=== PATIENT | female | born 1965 | race Caucasian/White ===

== ENCOUNTER 2020-08-20 11:38 | Outpatient (REF) | payer MEDICARE, MEDICAID, SELFPAY | END 2020-08-20 11:39 | disposition home or self-care (01) | LOC: HO.LNP 11:38 | PROVIDERS: Visit Provider Nurse Practitioner Family | DX: R35.0 Frequency of micturition (principal) | CPT/HCPCS: 87086 ==

== ENCOUNTER 2021-01-05 09:57 | Outpatient (REF) | payer OTHER, SELFPAY ==
[2021-01-05 11:37] LABS: Hematocrit 42.1 % (37-47); Hemoglobin 13.8 g/dl (12.0-16.0); Mean Corpuscular HGB Conc 32.8 g/dl (31.0-35.0); Mean Corpuscular Hemoglobin 29.6 pg (27.0-33.0); Mean Corpuscular Volume 90.1 fL (80-98); Platelet Count 328 X10*3/uL (160-400); Red Blood Count 4.67 X10*6/uL (4.20-5.50); Red Cell Distribution Width 12.9 % (11.0-16.0); White Blood Count 7.8 X10*3/uL (4.8-10.8)
[2021-01-05 11:51] LABS: Alanine Aminotransferase 18 U/L (0-31); Albumin Level 4.1 g/dL (3.5-5.0); Alkaline Phosphatase 102 U/L (39-117); Anion Gap 12 (12-20); Aspartate Amino Transferase 14 U/L (5-31); Bilirubin Total 0.5 mg/dL (0.0-1.0); Blood Urea Nitrogen 13 mg/dL (9-16); Calcium 9.8 mg/dL (8.4-10.2); Carbon Dioxide 29 mmol/L (22-29); Chloride 105 mmol/L (96-108); Cholesterol 199 mg/dL; Estimated Glomerular Filt Rate > 60; Glucose Fasting 86 mg/dL (60-99); HDL Cholesterol 66 mg/dL; LDL Cholesterol Calculated 120 mg/dl; Potassium 4.2 mmol/L (3.3-5.1); Sodium 142 mmol/L (135-145); Total Protein 6.9 g/dL (6.5-8.0); Triglycerides 67 mg/dL
[2021-01-05 12:12] LABS: TSH reflex Free T4 1.88 uIU/mL (0.32-4.0); Vitamin D 25-OH Total 36.1 ng/mL (>30)
[2021-01-08 01:34] LABS: Folate > 20.0 ng/mL (> or = 4.0); Vitamin B12 229 pg/mL (200-900)
== END 2021-01-05 09:58 | disposition home or self-care (01) ==
LOC: HO.HMGCLDS 09:57
PROVIDERS: PCP Internal Medicine; Visit Provider Internal Medicine
DX: E03.9 Hypothyroidism, unspecified (principal); R26.89 Other abnormalities of gait and mobility; R29.898 Other symptoms and signs involving the musculoskeletal system; F03.90 Unspecified dementia, unspecified severity, without behavioral disturbance, psychotic disturbance, mood disturbance, and anxiety
CPT/HCPCS: 36415; 80053; 80061; 82306; 82607; 82746; 84443; 85027

== ENCOUNTER 2021-02-18 13:00 | Outpatient (RCR) | payer OTHER, SELFPAY ==
--- NOTE | 2021-07-13 18:24 | MHC.PT.DC ---
[facility] [place] Office [place] Office [place] Office [address] Tiffanie Garibay [address] [phone] F: [phone] F: [phone] F: [phone] F: [phone] Physical Therapy Discharge Report Diagnosis: L Leg weakness. Date of Surgery: Date of Evaluation: 01/12/21 Date of Discharge: 07/13/21 Treatments to Date: 5 Cancellations to Date: 0 No Shows to Date: 0 Discharge Status: Patient Elected to Stop Visit Non-compliance Discharge Summary: noting dizziness and n/t in feet. pt required cues to stay on track a few times. modA for sit <> stand from w/c to plinth. increased unsteadiness when on feet. Electronically signed by: Ronak Garcia PT Please sign and return to therapist. Thank you for your referral.
== END 2021-07-13 18:25 | disposition home or self-care (01) ==
LOC: HO.PTCHIC 13:00
PROVIDERS: PCP Internal Medicine; Visit Provider Internal Medicine
DX: R26.89 Other abnormalities of gait and mobility (principal); R29.898 Other symptoms and signs involving the musculoskeletal system; F03.90 Unspecified dementia, unspecified severity, without behavioral disturbance, psychotic disturbance, mood disturbance, and anxiety; E03.9 Hypothyroidism, unspecified
CPT/HCPCS: 97110; 97112; 97116; 97163; 97530

== ENCOUNTER 2021-05-06 12:11 | Outpatient (REF) | payer OTHER, SELFPAY ==
[2021-05-06 14:27] LABS: Blood Urea Nitrogen 15 mg/dL (9-16); Estimated Glomerular Filt Rate > 60
== END 2021-05-06 12:12 | disposition home or self-care (01) ==
LOC: HO.LAB 12:11
PROVIDERS: PCP Internal Medicine; Visit Provider Psychiatry & Neurology Neurology
DX: G93.40 Encephalopathy, unspecified (principal); R35.0 Frequency of micturition; R82.90 Unspecified abnormal findings in urine
CPT/HCPCS: 36415; 82565; 84520; 87086; 87147

== ENCOUNTER 2021-06-09 12:16 | Inpatient (IN) | payer OTHER, SELFPAY ==
--- NOTE | ~2021-06-09 | XR_ITS ---
EXAMINATION: XR ANKLE, LEFT CLINICAL INFORMATION: Fall, trauma, pain COMPARISON: None TECHNIQUE: The left ankle is imaged in 3 views. FINDINGS: The AP and lateral views are oblique, nonorthogonal. The foot is plantarflexed. There is no visible fracture or dislocation. Talar dome shows no osteochondral lesion. XR/XR ankle LT min 3V IMPRESSION: No fracture or dislocation.
--- NOTE | ~2021-06-09 | XR_ITS ---
EXAMINATION: XR HIP, RIGHT CLINICAL INFORMATION: Pain COMPARISON: None TECHNIQUE: AP pelvis and 2 views of the right hip. FINDINGS: There is a subcapital fracture of the proximal right femur without evidence of dislocation. There is some medial angulation of distal fracture fragment. There appears to be some mild anterior and superior displacement of distal fracture fragment. No acute fracture or diastases of the pelvis is seen. XR/XR hip RT min 2V IMPRESSION: Subcapital fracture of the proximal right femur.
--- NOTE | ~2021-06-09 | XR_ITS ---
EXAMINATION: XR CHEST CLINICAL INFORMATION: Follow-up COMPARISON: Previous day TECHNIQUE: Frontal view of the chest was obtained. XR/XR chest 1V FINDINGS/IMPRESSION: No definite pneumothorax is present. Suspect a skin fold projecting over the left lung apex. Subsegmental atelectasis, left lower lung. No discrete consolidation. Normal heart size and pulmonary vascularity. Dual-lead pacemaker stably positioned.
--- NOTE | ~2021-06-09 | XR_ITS ---
EXAMINATION: XR CHEST CLINICAL INFORMATION: Hypertension. COMPARISON: Chest 06/10/2021 TECHNIQUE: Frontal view of the chest was obtained. FINDINGS: Lungs are expanded with bandlike atelectasis or infiltrate. Left lung base. Ill-defined opacities seen in the right midlung on the previous exam has resolved. There is increased pulmonary vascularity with mild thyromegaly question mild congestion. No gross bony abnormality. XR/XR chest 1V IMPRESSION: Left basilar atelectasis/infiltrate. Ill-defined opacities in the right midlung on previous study have resolved. Suspect mild pulmonary vascular congestion with underlying cardiomegaly..
--- NOTE | ~2021-06-09 | XR_ITS ---
EXAMINATION: XR CHEST CLINICAL INFORMATION: Leukocytosis COMPARISON: None TECHNIQUE: Frontal view of the chest was obtained. FINDINGS: The lungs are well-expanded with no acute consolidation. There are scattered ill-defined opacities in the right midlung question small nodules. No pleural effusion or pleural thickening. No gross bony abnormality seen. XR/XR chest 1V IMPRESSION: No acute process seen. There are scattered ill-defined opacities in the right midlung question nodules
--- NOTE | ~2021-06-09 | XR_ITS ---
EXAMINATION: XR CHEST CLINICAL INFORMATION: New cardiac pacer COMPARISON: 06/12/2021 TECHNIQUE: Frontal view of the chest was obtained. FINDINGS: Lungs are mildly hypoinflated. There is equivocal finding of thickening of the bronchial epstein. Cardiac silhouette and pulmonary vessels are normal in size. No evidence of pulmonary edema, consolidation or pleural effusion. No pneumothorax. There is a left pectoral region cardiac pacemaker with intact transvenous leads extending to level the right atrium and right ventricle. The visualized bones are intact. XR/XR chest 1V IMPRESSION: * There is a newly placed dual chamber cardiac pacemaker. * No evidence of pulmonary edema, pneumothorax or pleural effusion.
--- NOTE | ~2021-06-09 | XR_ITS ---
EXAMINATION: XR CHEST CLINICAL INFORMATION: Follow-up chest following pacer insertion. COMPARISON: Chest 06/13/2021 at 11:40 AM. TECHNIQUE: Frontal view of the chest was obtained. FINDINGS: There is a tiny less than 1% left apical pneumothorax seen. This is new compared to last study. Rest lungs are expanded with patchy opacities in both lung bases likely developing infiltrates. The heart size and pulmonary vascularity is normal. There are pacer electrodes in right atrium and right ventricle. No gross bony abnormality seen. XR/XR chest 1V IMPRESSION: Suspect new left apical pneumothorax 1% and less. Bilateral patchy opacities in lung bases question developing infiltrates.
--- NOTE | ~2021-06-09 | FL_ITS ---
EXAMINATION: XR FLUOROSCOPY WITH IMAGES CLINICAL INFORMATION: Pacer insertion COMPARISON: CXR from 06/12/2021 TECHNIQUE: Fluoroscopic imaging of the chest performed during time of pacemaker insertion. Fluoroscopy time: 10.3 minutes DAP: 26.7 mGycm2 Images: 3 images are saved. FL/FL guidance in OR FINDINGS AND IMPRESSION: The initial image obtained during the venogram shows widely patent left subclavian and axillary veins. Thereafter, the subclavian vein is localized, and final image shows the inserted cardiac pacing leads. Please refer to the procedure report.
--- NOTE | ~2021-06-09 | XR_ITS ---
EXAMINATION: XR KNEE, RIGHT CLINICAL INFORMATION: Fall, trauma, pain COMPARISON: None TECHNIQUE: AP and crosstable lateral views of the right knee. FINDINGS: There is no fracture, dislocation, or suprapatellar effusion. Hoffa's fat pad appears normal. There is narrowing lateral knee joint compartment. No visible erosive change or chondrocalcinosis. Bony mineralization appears normal. XR/XR knee RT 2V IMPRESSION: No fracture or dislocation.
--- NOTE | ~2021-06-09 | XR_ITS ---
EXAMINATION: XR HIP, RIGHT CLINICAL INFORMATION: Hip fracture COMPARISON: Previous x-ray 06/09/2021 TECHNIQUE: Two views of the right hip. FINDINGS: There is a new right hip hemiarthroplasty. No fracture or dislocation is seen. There are postoperative changes to the soft tissues. There is an IUD in the pelvis. XR/XR hip RT w PEL1V IMPRESSION: Satisfactory appearance of right hip hemiarthroplasty.
--- NOTE | 2021-06-09 12:26 | ED.FALL ---
HPI - Fall General Chief Complaint: Fall Stated Complaint: FALL FROM WHEELCHAIR,LEFT LEG PAIN Time Seen by Provider: 06/09/21 12:20 History of Present Illness HPI Narrative: 56 years old status post accidental fall. Complaining of pain to the right thigh area. Also to the left ankle. Denies any loss of consciousness no head injury. No known fever no chills no nausea no vomiting. No head injury. Patient from home. Baseline dementia. Mental status is unchanged per EMS. Baseline awake alert oriented to self and place not time. Patient was being moved from her wheelchair by her . Accidentally fell. Related Data Home Medications Medication Instructions Recorded Confirmed nystatin 100,000 unit/mL oral 1 ml PO DAILY 10/05/20 06/04/21 suspension Previous Rx's Medication Instructions Recorded cholecalciferol (vitamin D3) 25 25 mcg PO DAILY #90 cap 12/30/20 mcg (1,000 unit) capsule folic acid 1 mg tablet 1 mg PO DAILY #90 tab 12/30/20 levothyroxine 75 mcg tablet 75 mcg PO DAILY #90 tab 12/30/20 miscellaneous medical supply 1 ea MISCELLANEOUS .QD #1 ea 12/30/20 nicotine 14 mg/24 hr daily 1 patch TRANSDERMAL DAILY #28 ea 12/30/20 transdermal patch ciprofloxacin HCl 500 mg tablet 500 mg PO BID #14 tab 06/04/21 (Cipro) Allergies Allergy/AdvReac Type Severity Reaction Status Date / Time No Known Allergies Allergy Verified 06/04/21 16:48 Review of Systems Review of Systems: Constitutional: No Weight loss, No Fever, No Chills, No Night Sweats, No Fatigue, No Malaise ENT/Mouth: No Hearing loss, No Ear Pain, No Nasal Congestion, No Sinus Pain, No Hoarseness, No sore throat, No Rhinorrhea, No Swallowing Difficulty Eyes: No Eye Pain, No Swelling, No Redness, No Foreign Body, No Discharge, No Vision Changes Cardiovascular: No Chest Pain, No SOB, No Dyspnea on Exertion, No Orthopnea, No Edema, No Palpitations Respiratory: No Cough, No Sputum, No Wheezing, No Smoke Exposure, No Dyspnea Gastrointestinal: No Nausea, No Vomiting, No Diarrhea, No Constipation, No abdominal Pain, No Hematochezia, No Melena Genitourinary: no irregular bleeding, No Dysuria, No Urinary Frequency, No Hematuria, No Urinary Incontinence, No Urgency, No Flank Pain, No Urinary Flow Changes, No Hesitancy Musculoskeletal: Positive pain to the right thigh and to the left ankle. Neuro: No Weakness, No Numbness, No Paresthesias, No Loss of Consciousness, No Dizziness, No Headache Psych: No Anxiety/Panic, No Depression, No SI/HI/AH/VH, No Social Issues, Heme/Lymph: No Bruising, No Bleeding,No Lymphadenopathy Endocrine: No Polyuria, No Polydipsia, No Temperature Intolerance PMF Past Medical History Medical History Balance disorder Dementia Hypothyroidism Lactose intolerance Left leg weakness Memory loss PTSD (post-traumatic stress disorder) Tobacco dependence Surgical History No pertinent past surgical history Social History Social History Alcohol intake: current Alcohol intake frequency: holidays/special occasions only Patient Tobacco Use Status: Current everyday Tobacco user Use of substances other than those prescribed or required for medical reasons: No Advance Directives: No Advance Directives Information Provided: No Physical Exam Vital Signs: Vital Signs: Last Vital Signs Pulse 91 06/09/21 12:27 Resp 16 06/09/21 12:27 BP 130/73 06/09/21 12:27 Pulse Ox 95 06/09/21 12:27 Body Mass Index 32.9 MDM - Fall MDM Narrative Medical decision making narrative: Status post accidental fall from wheelchair. X-ray showed a right subcapital hip fracture. The finding was discussed with Orthopedics. Will admit patient for further evaluation. Patient denies any chest pain shortness of breath dizziness. The fall was witnessed by spells. It was completely accidental in nature. There is no head injury. No nausea no vomiting. No focal weakness. Patient's case discussed with orthopedic service. Will admit for further evaluation. Differential Diagnosis Differential diagnosis: Likely fracture Discharge Plan Discharge Clinical Impression: Closed hip fracture Patient Disposition: Admitted As Inpatient
[2021-06-09 12:27] VITALS: BP 108/57; BP 130/73; PULSE 91; PULSE 92; RESP 16; O2SAT 94; O2SAT 95; BMI 32.9
--- NOTE | 2021-06-09 14:27 | ECG_ITS ---
Test Reason : FALL Blood Pressure : / mmHG Vent. Rate : 095 BPM Atrial Rate : 094 BPM P-R Int : 000 ms QRS Dur : 078 ms QT Int : 360 ms P-R-T Axes : 000 -10 018 degrees QTc Int : 452 ms Artifact in tracing Normal sinus rhythm Nonspecific ST and T wave abnormality Abnormal ECG No previous ECGs available Referred By: Sarah Cueto Electronically Signed By:FLAKO SAAVEDRA
--- NOTE | 2021-06-09 14:34 | PM.EVENT ---
Event Note Date of Service: 06/09/21 Event Note: Is a 56-year-old female who presented to the emergency department after sustaining a fall while transferring from walker to wheelchair. X-rays show a femoral neck fracture on the right side Admitted to the Orthopedic Service She will be typed and screened and NPO after midnight Plan for right hip hemiarthroplasty on June [address] Madden Full consult note to follow
[2021-06-09 14:40] VITALS: BP 114/70; PULSE 96; RESP 16; TEMP 36.9; O2SAT 94
[2021-06-09] MEDS: Dextrose 5 % and 0.45 % NaCl 1,000 ML 80 ML IVCONT (14:51)
[2021-06-09 14:56] LABS: MANUAL DIFF FLAG NO
[2021-06-09 14:57] LABS: Glucose Urine UA NEG (NEG); Leukocyte Esterase Urine NEG (NEG); Nitrite Urine NEG (NEG); PH 5.5 (5.0-8.0); Specific Gravity - Urine >= 1.030 (1.005-1.025); UACC Culture Trigger NO; Urine Blood NEG (NEG); Urine Ketones NEG (NEG); Urine Protein 1+ MG/DL (NEG-TRACE)
[2021-06-09 14:58] LABS: Basophils Absolute Auto 0.1 X10*3/uL (0.0-0.2); Basophils Percent Auto 0.3 % (0-2); Eosinophils Percent Auto 0.1 % (0-4); Hematocrit 41.1 % (37-47); Hemoglobin 13.4 g/dl (12.0-16.0); Imm Gran Abs Auto 0.14 X10*3/uL (0.00-0.03); Imm Gran Pct Auto 0.6 % (0.0-0.4); Lymphocytes Absolute Auto 1.2 X10*3/uL (1.2-4.9); Lymphocytes Percent Auto 5.3 % (20-40); Mean Corpuscular HGB Conc 32.6 g/dl (31.0-35.0); Mean Corpuscular Hemoglobin 28.9 pg (27.0-33.0); Mean Corpuscular Volume 88.6 fL (80-98); Mean Platelet Volume 10.3 fL (9.4-12.3); Monocytes Absolute Auto 0.9 X10*3/uL (0.1-1.2); Neutrophils Absolute Auto 19.7 X10*3/uL (2.0-8.3); Neutrophils Percent Auto 89.7 % (45-73); Platelet Count 317 X10*3/uL (160-400); Red Blood Count 4.64 X10*6/uL (4.20-5.50); Red Cell Distribution Width 12.8 % (11.0-16.0)
[2021-06-09 14:58] LABS: Appearance Urine HAZY; Color Urine DARK YELLOW
[2021-06-09] MEDS: Morphine Sulfate 2 MG/ML CARTRIDGE IVPUSH (15:00)
[2021-06-09 15:03] VITALS: BP 114/70; PULSE 95
[2021-06-09 15:06] LABS: Bacteria Urine TRACE /LPF; Calcium Oxalate Crystals Urine TRACE /LPF; RBC Urine 0-2 /HPF (0); Squamous Epithelial Cell Urine 1+ /LPF
--- NOTE | 2021-06-09 15:10 | PHA.MEDREC ---
Pharmacy Consult ? Medication Reconciliation Pharmacy has completed the medication reconciliation.
[2021-06-09 15:22] LABS: Anion Gap 15 (12-20); Blood Urea Nitrogen 14 mg/dL (9-16); Calcium 9.5 mg/dL (8.4-10.2); Carbon Dioxide 23 mmol/L (22-29); Chloride 106 mmol/L (96-108); Estimated Glomerular Filt Rate > 60; Glucose Random 128 mg/dL (60-115); Potassium 3.6 mmol/L (3.3-5.1); Sodium 140 mmol/L (135-145)
--- NOTE | 2021-06-09 15:45 | PC.NURSE ---
plan to admit pt to the floors for surgery tomorrow. family at bedside. pt received morphine for pain and has D5 .45NS running at 80 at this time. pt and family aware of plan to admit to floor.
[2021-06-09] MEDS: oxyCODONE HCl Immed Release 5 MG TABLET 10 MG PO ×2 (16:12→22:32)
--- NOTE | 2021-06-09 17:27 | PC.NURSE ---
Christiano, , ([phone]) will be leaving and wants to be informed what room his is in once she has been assigned to a room.
[2021-06-09 17:41] VITALS: BP 117/66; PULSE 99; RESP 16; TEMP 37.4; O2SAT 92
--- NOTE | 2021-06-09 19:43 | PC.NURSE ---
attempted to give report to nelly dickey. no answer.
[2021-06-09 20:14] VITALS: BP 115/62; PULSE 59; RESP 18; TEMP 36.5; O2SAT 94
--- NOTE | 2021-06-09 21:47 | P.HPOP_ITS ---
History of Present Illness History of Present Illness Date of Service: 06/09/21 Chief complaint: right femoral neck fracture Narrative: Gonzalez Santiago is a 56 year old female who presented to the ED after sustaining a fall onto her right side. This occurred just prior to arrival. She has baseline dementia where she is A/O x2. She lives at home with her . She uses wheelchair and walker for transfers. At the time of her fall, she was transferring to her wheelchair when she fell. EMS was called and she was transported to the ED. Upon examination and xrays, she was found to have a right femoral neck fracture. The plan was to admit her to the orthopedic service for surgical planning. Review of Systems Review of Systems: Yes all other systems are reviewed and are negative PMFSH Past Medical History Medical History Balance disorder Dementia Hypothyroidism Lactose intolerance Left leg weakness Memory loss PTSD (post-traumatic stress disorder) Tobacco dependence Surgical History Surgical History No pertinent past surgical history Social History Social History Alcohol intake: current Alcohol intake frequency: holidays/special occasions only Patient Tobacco Use Status: Current everyday Tobacco user Use of substances other than those prescribed or required for medical reasons: No Advance Directives: No Advance Directives Information Provided: No Meds Allergies Allergy/AdvReac Type Severity Reaction Status Date / Time No Known Allergies Allergy Verified 06/04/21 16:48 Active Medications: Current Medications Generic Name Dose Route Start Last Admin Trade Name Freq PRN Reason Stop Dose Admin Acetaminophen 650 mg 06/09/21 14:39 Acetaminophen Supp 650 Mg Supp.Rect TX Q6H PRN Pain, Mild (Pain Scale 1-3) Docusate Sodium 100 mg 06/09/21 21:00 Docusate Sodium 100 Mg Capsule PO BID JOMAR Dextrose/Sodium Chloride 1,000 mls @ 80 mls/hr 06/09/21 14:39 06/09/21 14:51 D51/2ns IVCONT 80 mls/hr .[id number] JOMAR Administration Cefazolin Sodium/Dextrose 2 gm in 50 mls @ 100 mls/hr 06/10/21 07:40 Ancef IV 06/10/21 08:09 PREOP ONE Morphine Sulfate 2 mg 06/09/21 14:39 06/09/21 15:00 Morphine Sulfate 2 Mg/Ml Cartridge IVPUSH 2 mg Q2H PRN Administration Pain, Severe (Pain Scale 7-10) Naloxone HCl 0.2 mg 06/09/21 14:39 Naloxone Hcl 0.4 Mg/Ml Vial IVPUSH Q2M PRN Excessive sedation or RR < 8 Oxycodone HCl 10 mg 06/09/21 16:00 06/09/21 16:12 Oxycodone Hcl Immed Release 5 Mg Tablet PO 10 mg Q6H JOMAR Administration Pharmacy Consult 1 each 06/09/21 14:29 Consult Rx Perform Med Rec MISCELLANE ONCE PRN Consult order Sodium Chloride 3 ml 06/09/21 16:00 06/09/21 15:45 0.9 % Sodium Chloride Flush 3 Ml Syringe IVFLUSH Not Given QSHIFT [facility] Physical Exam Vital Signs: Vital Signs: Last Vital Signs Temp 97.7 F 06/09/21 20:14 Pulse 59 06/09/21 20:14 Resp 18 06/09/21 20:14 BP 115/62 06/09/21 20:14 Pulse Ox 94 06/09/21 20:14 Body Mass Index 32.9 Const: General: cooperative, healthy appearing, comfortable, no acute distress, well developed and alert HENMT: Head: Yes normal to inspection, Yes normocephalic and Yes atraumatic Eyes: General: appearance normal, both eyes and all related structures Neck: Neck: Yes normal visual inspection and Yes no lymphadenopathy Resp: Effort & Inspection: normal respiratory effort and able to speak in complete sentences Cardio: Rate: regular rate Peripheral pulses: Peripheral pulses 2+ throughout GI: Inspection: Yes normal to inspection Palpation (GI): Soft to palpation Skin: General skin exam: no rashes or lesions noted Extrem: Other: Right lower extremity shortened and ER. Pain with log roll. Peripheral pulses intact. Psych: Appearance: grossly normal Mental Status: mental status grossly normal Results Labs Result Diagrams: 06/09/21 14:50 06/09/21 14:50 Labs: Abnormal lab results 06/09/21 06/09/21 06/09/21 Range/Units 14:46 14:50 14:50 WBC 22.0 H (4.8-10.8) X10*3/uL Immature Gran % (Auto) 0.6 H (0.0-0.4) % Neut % (Auto) 89.7 H (45-73) % Lymph % (Auto) 5.3 L (20-40) % Abs Immat Gran (auto) 0.14 H (0.00-0.03) X10*3/uL Absolute Neuts (auto) 19.7 H (2.0-8.3) X10*3/uL Random Glucose 128 H (60-115) mg/dL Ur Specific Jackpot >= 1.030 H (1.005-1.025) Urine Protein 1+ H (NEG-TRACE) MG/DL H & H 06/09/21 Range/Units 14:50 Hgb 13.4 (12.0-16.0) g/dl Hct 41.1 (37-47) % All other labs normal. Diagnostic results Hip x-ray: image reviewed (femoral neck fracture right hip) Assessment and Plan (1) Displaced fracture of right femoral neck: Status: Acute I discussed the case with Dr Madden and explained the extent of the injury to the patient and her at bedside and options available which include surgical intervention. I explained the procedure in detail along with the length of recovery and rehab course. I explained the risk, benefits and alt ernatives. Risk including, but not limited to infection, blood clots, bleeding, non union or malunion and nerve/tissue damage to surrounding areas. I answered all their questions and with their understanding they have consented to move forward with Operative Fixation of the rigth hip . The patient with be T&S, med clearance obtained and NPO after midnight. Quality Stroke Does the patient have a stroke diagnosis?: No VTE Prior VTE?: No VTE Risk Level:: Medical - low VTE Device Contraindication: N/A - Device Ordered VTE Drug Contraindication: Treatment Not Indicated Procedures Date of Service Date of Service: 06/09/21
[2021-06-09] MEDS: Docusate Sodium 100 MG CAPSULE PO (22:32)
[2021-06-09] MEDS: 0.9 % Sodium Chloride Flush 3 ML SYRINGE IVFLUSH (22:32)
[2021-06-09 22:36] VITALS: BMI 29.2
[2021-06-09 23:42] VITALS: BP 136/65; PULSE 96; RESP 18; TEMP 36.4; O2SAT 95
[2021-06-10] VITALS (19 sets, daily range): BP systolic 93–127; BP diastolic 42–73; PULSE 44–109; RESP 16–18; TEMP 36.2–36.9; O2SAT 92–100
[2021-06-10] MEDS: Dextrose 5 % and 0.45 % NaCl 1,000 ML 80 ML IVCONT (05:45)
[2021-06-10] MEDS: oxyCODONE HCl Immed Release 5 MG TABLET 10 MG PO ×2 (05:46→16:45)
--- NOTE | 2021-06-10 06:16 | P.CONHOSP_ITS ---
History of Present Illness Data of Consult Service Date: 06/09/21 Requesting physician: Jose F Henriquez Primary Care Provider: Marry Campuzano MD [facility] Reason for consult: medical clearance Patient has severe dementia, unable to give much history, does not remember she had a fall, but complaining of right hip pain. Therefore history is obtained from EMR Gonzalez Santiago is a 56 year old female who presented to the ED after sustaining a fall onto her right side. This occurred just prior to arrival. She has baseline dementia where she is A/O x2. She lives at home with her . She uses wheelchair and walker for transfers. At the time of her fall, she was transferring to her wheelchair when she fell. EMS was called and she was transported to the ED. Upon examination and xrays, she was found to have a right femoral neck fracture. The plan was to admit her to the orthopedic service for surgical planning. We are consulted for medical clearance prior to orthopedic surgery Patient denies any chest pain, no shortness of breath, no abdominal pain nausea or vomiting, no diarrhea constipation, no urinary symptoms and no lower extremity edema Review of Systems Review of Systems: Review of system negative otherwise [facility] Medical History Balance disorder Dementia Hypothyroidism Lactose intolerance Left leg weakness Memory loss PTSD (post-traumatic stress disorder) Tobacco dependence Surgical History No pertinent past surgical history Social History Household Members: Spouse Housing: Apartment Alcohol intake: current Alcohol intake frequency: holidays/special occasions only Patient Tobacco Use Status: Current everyday Tobacco user Tobacco use type: Cigarette Cigarettes Per Day: 8 Use of substances other than those prescribed or required for medical reasons: No Have you been hit, kicked, punched, or otherwise hurt by someone within the past year? If so, by whom?: No Do you feel safe in your current relationship?: No Is there a partner from a previous relationship who is making you feel unsafe now?: No Are you made to feel afraid or neglected: No Advance Directives: No Advance Directives Information Provided: No Advance Directives on File: No Do you have thoughts of harming others: None Do you have a plan to hurt others: No Plan Recently lost weight without trying: No How much weight loss: Not applicable Eating poorly because of decreased appetite: No Nutrition screen score: 0 Nutrition Risks: No Nutritional Risk Patient : No : No Poor oral hygiene: No Meds Allergies Allergy/AdvReac Type Severity Reaction Status Date / Time No Known Allergies Allergy Verified 06/04/21 16:48 Active Medications: Current Medications Generic Name Dose Route Start Last Admin Trade Name Freq PRN Reason Stop Dose Admin Acetaminophen 650 mg 06/09/21 14:39 Acetaminophen Supp 650 Mg Supp.Rect MD Q6H PRN Pain, Mild (Pain Scale 1-3) Docusate Sodium 100 mg 06/09/21 21:00 06/09/21 22:32 Docusate Sodium 100 Mg Capsule PO 100 mg BID JOMAR Administration Dextrose/Sodium Chloride 1,000 mls @ 80 mls/hr 06/09/21 14:39 06/10/21 05:45 D51/2ns IVCONT 80 mls/hr .[id number] JOMAR Administration Cefazolin Sodium/Dextrose 2 gm in 50 mls @ 100 mls/hr 06/10/21 07:40 Ancef IV 06/10/21 08:09 PREOP ONE Morphine Sulfate 2 mg 06/09/21 14:39 06/09/21 15:00 Morphine Sulfate 2 Mg/Ml Cartridge IVPUSH 2 mg Q2H PRN Administration Pain, Severe (Pain Scale 7-10) Naloxone HCl 0.2 mg 06/09/21 14:39 Naloxone Hcl 0.4 Mg/Ml Vial IVPUSH Q2M PRN Excessive sedation or RR < 8 Oxycodone HCl 10 mg 06/09/21 16:00 06/10/21 05:46 Oxycodone Hcl Immed Release 5 Mg Tablet PO 10 mg Q6H JOMAR Administration Pharmacy Consult 1 each 06/09/21 14:29 Consult Rx Perform Med Rec MISCELLANE ONCE PRN Consult order Sodium Chloride 3 ml 06/09/21 16:00 06/09/21 22:32 0.9 % Sodium Chloride Flush 3 Ml Syringe IVFLUSH 3 ml QSHIFT JOMAR Administration Physical Exam Vital Signs and Narrative: Vital Signs: Last Vital Signs Temp 97.6 F 06/10/21 03:03 Pulse 83 06/10/21 03:03 Resp 16 06/10/21 03:03 BP 100/52 L 06/10/21 03:03 Pulse Ox 94 06/10/21 03:03 Body Mass Index 29.2 Const: Other: oriented to self , aware that she is in the hospital she thinks she is in [facility]. Not oriented to date General: cooperative and no acute distress Eyes: General: appearance normal, both eyes and all related structures Resp: Effort & Inspection: normal respiratory effort and able to speak in complete sentences Auscultation: clear to auscultation bilaterally Cardio: Rate: regular rate Rhythm: regular rhythm GI: Palpation (GI): Soft to palpation Auscultation: normal bowel sounds Skin: General skin exam: no rashes or lesions noted Neuro: Cognition (Neuro): normal cognition Extrem: Other: Internally rotated and shortened right lower extremity General: Yes no pedal edema Results Labs CBC and Chem 7: 06/09/21 14:50 06/09/21 14:50 Labs: Laboratory Results - last 24 hr 06/09/21 06/09/21 06/09/21 14:46 14:50 14:50 MCV 88.6 MCH 28.9 MCHC 32.6 RDW 12.8 Plt Count 317 MPV 10.3 Immature Gran % (Auto) 0.6 H Neut % (Auto) 89.7 H Lymph % (Auto) 5.3 L [place] % (Auto) 4.0 Eos % (Auto) 0.1 Baso % (Auto) 0.3 Lymph # (Auto) 1.2 [place] # (Auto) 0.9 Eos # (Auto) 0.0 Baso # (Auto) 0.1 Abs Immat Gran (auto) 0.14 H Absolute Neuts (auto) 19.7 H Absolute Nucleated RBC 0.000 Nucleated RBC % (auto) 0.0 Anion Gap 15 Estim Creat Clear Calc 84.0 Estimated GFR > 60 Random Glucose 128 H Calcium 9.5 Urine Color DARK YELLOW Urine Appearance HAZY Urine pH 5.5 Ur Specific [place] >= 1.030 H Urine Protein 1+ H Urine Glucose (UA) NEG Urine Ketones NEG Urine Blood NEG Urine Nitrite NEG Ur Leukocyte Esterase NEG Urine RBC 0-2 Urine WBC 1-4 Ur Squamous Epith Cells 1+ Calcium Oxalate Crystal TRACE Urine Bacteria TRACE Blood Type Antibody Screen 06/09/21 14:50 MCV MCH MCHC RDW Plt Count MPV Immature Gran % (Auto) Neut % (Auto) Lymph % (Auto) [place] % (Auto) Eos % (Auto) Baso % (Auto) Lymph # (Auto) [place] # (Auto) Eos # (Auto) Baso # (Auto) Abs Immat Gran (auto) Absolute Neuts (auto) Absolute Nucleated RBC Nucleated RBC % (auto) Anion Gap Estim Creat Clear Calc Estimated GFR Random Glucose Calcium Urine Color Urine Appearance Urine pH Ur Specific [place] Urine Protein Urine Glucose (UA) Urine Ketones Urine Blood Urine Nitrite Ur Leukocyte Esterase Urine RBC Urine WBC Ur Squamous Epith Cells Calcium Oxalate Crystal Urine Bacteria Blood Type O Positive Antibody Screen NEGATIVE ECG Interpretation: EKG reviewed by me shows no significant abnormality Imaging Radiologist's Impressions: Impressions Ankle X-Ray 06/09/21 12:20 IMPRESSION: No fracture or dislocation. Hip X-Ray 06/09/21 12:20 IMPRESSION: Subcapital fracture of the proximal right femur. Knee X-Ray 06/09/21 12:20 IMPRESSION: No fracture or dislocation. Assessment and Plan (1) Displaced fracture of right femoral neck: Status: Acute (2) Closed hip fracture: Status: Acute This is a 56-year-old female with past medical history of dementia who presents to the hospital after a fall found to have displaced fracture of right femoral n karolyn We are consulted for medical clearance prior to orthopedic surgical intervention At this time patient does not appear to have any contraindication to surgery Review of her vitals showed a blood pressure 100/52, with no significant abnormal physical finding Will give her 1 L of LR She does have leukocytosis of 20 to but does not appear to have any acute infection as patient not hypoxic, UA is negative Will obtain a stat chest x-ray to rule out any infection but otherwise patient is cleared to proceed with surgery EKG reviewed with no significant abnormality
[2021-06-10 06:35] LABS: MANUAL DIFF FLAG NO
[2021-06-10 06:43] LABS: Basophils Percent Auto 0.3 % (0-2); Eosinophils Absolute Auto 0.1 X10*3/uL (0.0-0.4); Eosinophils Percent Auto 0.3 % (0-4); Hematocrit 38.7 % (37-47); Imm Gran Abs Auto 0.09 X10*3/uL (0.00-0.03); Imm Gran Pct Auto 0.6 % (0.0-0.4); Lymphocytes Absolute Auto 1.7 X10*3/uL (1.2-4.9); Mean Corpuscular HGB Conc 33.6 g/dl (31.0-35.0); Mean Corpuscular Hemoglobin 29.4 pg (27.0-33.0); Mean Corpuscular Volume 87.6 fL (80-98); Mean Platelet Volume 10.5 fL (9.4-12.3); Monocytes Absolute Auto 0.8 X10*3/uL (0.1-1.2); Monocytes Percent Auto 5.6 % (2-11); Neutrophils Absolute Auto 11.7 X10*3/uL (2.0-8.3); Neutrophils Percent Auto 81.2 % (45-73); Platelet Count 294 X10*3/uL (160-400); Red Blood Count 4.42 X10*6/uL (4.20-5.50); Red Cell Distribution Width 12.6 % (11.0-16.0); White Blood Count 14.4 X10*3/uL (4.8-10.8)
[2021-06-10 07:10] LABS: Anion Gap 12 (12-20); Blood Urea Nitrogen 10 mg/dL (9-16); Calcium 9.2 mg/dL (8.4-10.2); Carbon Dioxide 24 mmol/L (22-29); Chloride 105 mmol/L (96-108); Creatinine Clr Calc Pharmacy 88.7; Estimated Glomerular Filt Rate > 60; Glucose Random 102 mg/dL (60-115); Potassium 3.6 mmol/L (3.3-5.1); Sodium 137 mmol/L (135-145)
[2021-06-10 07:20] LABS: COVID-19 Test Negative (Negative)
--- NOTE | 2021-06-10 09:08 | MHC.CM.PN ---
pt lives c her in their home. she uses a wc and a walker for trnfrs. pt is in the o.r. today for repair of fracture. considering the compromised ambulatory and transfer function prior to this fall and hospitalization it is like the patient will benefit from STR at dc vs. home c home PT. dc plan will be between the two pending a PT evaluation. cm to cont to follow.
--- NOTE | 2021-06-10 09:18 | PC.NURSE ---
pt to pre op/ no blood band on. called lab it was done yesterday. pt to be redrawn and banded for her surgery.
--- NOTE | 2021-06-10 09:54 | HO.ANESPROP2 ---
HPI - Anesthesia Eval Consult details Narrative: 56 yo female patient for Right hip hemiarthroplasty [facility] Active Problems Active Problems: All Active Problems (Updated 06/09/21 @ 21:52 by Jose F Henriquez PA-C) Displaced fracture of right femoral neck (Acute) Closed hip fracture (Acute) Urinary incontinence (Acute) Hypothyroidism (Acute) Balance disorder (Acute) Left leg weakness (Acute) Dementia (Acute) Abnormal urine odor (Acute) Increased urinary frequency (Acute) Past Medical History Medical History (Updated 06/10/21 @ 10:21 by Blanche Dempsey) Balance disorder Dementia Hypothyroidism Lactose intolerance Left leg weakness Memory loss PTSD (post-traumatic stress disorder) Tobacco dependence Family History Family history of problems with anesthesia: No Surgical History Surgical History No pertinent past surgical history History of Problems with Anesthesia: No Social History Social History Household Members: Spouse Housing: Apartment Alcohol intake: current Alcohol intake frequency: holidays/special occasions only Patient Tobacco Use Status: Current everyday Tobacco user Tobacco use type: Cigarette Cigarettes Per Day: 8 Use of substances other than those prescribed or required for medical reasons: No Have you been hit, kicked, punched, or otherwise hurt by someone within the past year? If so, by whom?: No Do you feel safe in your current relationship?: No Is there a partner from a previous relationship who is making you feel unsafe now?: No Are you made to feel afraid or neglected: No Advance Directives: No Advance Directives Information Provided: No Advance Directives on File: No Do you have thoughts of harming others: None Do you have a plan to hurt others: No Plan Recently lost weight without trying: No How much weight loss: Not applicable Eating poorly because of decreased appetite: No Nutrition screen score: 0 Nutrition Risks: No Nutritional Risk Patient : No : No Poor oral hygiene: No service: No Current occupational status: disabled Meds Allergies Allergy/AdvReac Type Severity Reaction Status Date / Time No Known Allergies Allergy Verified 06/04/21 16:48 Active Medications: Current Medications Generic Name Dose Route Start Last Admin Trade Name Freq PRN Reason Stop Dose Admin Acetaminophen 650 mg 06/09/21 14:39 Acetaminophen Supp 650 Mg Supp.Rect IA Q6H PRN Pain, Mild (Pain Scale 1-3) Docusate Sodium 100 mg 06/09/21 21:00 06/10/21 08:13 Docusate Sodium 100 Mg Capsule PO Not Given BID [facility] Dextrose/Sodium Chloride 1,000 mls @ 80 mls/hr 06/09/21 14:39 06/10/21 05:45 D51/2ns IVCONT 80 mls/hr .[id number] JOMAR Administration Morphine Sulfate 2 mg 06/09/21 14:39 06/09/21 15:00 Morphine Sulfate 2 Mg/Ml Cartridge IVPUSH 2 mg Q2H PRN Administration Pain, Severe (Pain Scale 7-10) Naloxone HCl 0.2 mg 06/09/21 14:39 Naloxone Hcl 0.4 Mg/Ml Vial IVPUSH Q2M PRN Excessive sedation or RR < 8 Oxycodone HCl 10 mg 06/09/21 16:00 06/10/21 05:46 Oxycodone Hcl Immed Release 5 Mg Tablet PO 10 mg Q6H JOMAR Administration Pharmacy Consult 1 each 06/09/21 14:29 Consult Rx Perform Med Rec MISCELLANE ONCE PRN Consult order Sodium Chloride 3 ml 06/09/21 16:00 06/10/21 08:13 0.9 % Sodium Chloride Flush 3 Ml Syringe IVFLUSH Not Given QSHIFT [facility] Exam Exam Date and Time: June 10, 2021 0954 Height,Weight and Vital Signs: Height 5 ft 2 in Weight 72.6 kg Last Vital Signs Temp 98.2 F 06/10/21 08:54 Pulse 88 06/10/21 08:54 Resp 18 06/10/21 08:54 BP 101/51 L 06/10/21 08:54 Pulse Ox 92 06/10/21 08:54 Pertinent Lab Results Pertinent Lab Results: Laboratory Tests 06/09/21 06/09/21 06/09/21 14:46 14:50 14:50 WBC 22.0 H RBC 4.64 Hgb 13.4 Hct 41.1 MCV 88.6 MCH 28.9 MCHC 32.6 RDW 12.8 Plt Count 317 MPV 10.3 Immature Gran % (Auto) 0.6 H Neut % (Auto) 89.7 H Lymph % (Auto) 5.3 L [place] % (Auto) 4.0 Eos % (Auto) 0.1 Baso % (Auto) 0.3 Lymph # (Auto) 1.2 [place] # (Auto) 0.9 Eos # (Auto) 0.0 Baso # (Auto) 0.1 Abs Immat Gran (auto) 0.14 H Absolute Neuts (auto) 19.7 H Absolute Nucleated RBC 0.000 Nucleated RBC % (auto) 0.0 Sodium 140 Potassium 3.6 Chloride 106 Carbon Dioxide 23 Anion Gap 15 BUN 14 Creatinine 0.74 Estim Creat Clear Calc 84.0 Estimated GFR > 60 Random Glucose 128 H Calcium 9.5 Urine Color DARK YELLOW Urine Appearance HAZY Urine pH 5.5 Ur Specific [place] >= 1.030 H Urine Protein 1+ H Urine Glucose (UA) NEG Urine Ketones NEG Urine Blood NEG Urine Nitrite NEG Ur Leukocyte Esterase NEG Urine RBC 0-2 Urine WBC 1-4 Ur Squamous Epith Cells 1+ Calcium Oxalate Crystal TRACE Urine Bacteria TRACE COVID-19 (BOB) COVID-19 Clin Com Blood Type Antibody Screen 06/09/21 06/10/21 06/10/21 14:50 06:17 06:17 WBC 14.4 H RBC 4.42 Hgb 13.0 Hct 38.7 MCV 87.6 MCH 29.4 MCHC 33.6 RDW 12.6 Plt Count 294 MPV 10.5 Immature Gran % (Auto) 0.6 H Neut % (Auto) 81.2 H Lymph % (Auto) 12.0 L [place] % (Auto) 5.6 Eos % (Auto) 0.3 Baso % (Auto) 0.3 Lymph # (Auto) 1.7 [place] # (Auto) 0.8 Eos # (Auto) 0.1 Baso # (Auto) 0.0 Abs Immat Gran (auto) 0.09 H Absolute Neuts (auto) 11.7 H Absolute Nucleated RBC 0.000 Nucleated RBC % (auto) 0.0 Sodium 137 Potassium 3.6 Chloride 105 Carbon Dioxide 24 Anion Gap 12 BUN 10 Creatinine 0.66 Estim Creat Clear Calc 88.7 Estimated GFR > 60 Random Glucose 102 Calcium 9.2 Urine Color Urine Appearance Urine pH Ur Specific [place] Urine Protein Urine Glucose (UA) Urine Ketones Urine Blood Urine Nitrite Ur Leukocyte Esterase Urine RBC Urine WBC Ur Squamous Epith Cells Calcium Oxalate Crystal Urine Bacteria COVID-19 (BOB) COVID-19 Clin Com Blood Type O Positive Antibody Screen NEGATIVE 06/10/21 06:58 WBC RBC Hgb Hct MCV MCH MCHC RDW Plt Count MPV Immature Gran % (Auto) Neut % (Auto) Lymph % (Auto) [place] % (Auto) Eos % (Auto) Baso % (Auto) Lymph # (Auto) [place] # (Auto) Eos # (Auto) Baso # (Auto) Abs Immat Gran (auto) Absolute Neuts (auto) Absolute Nucleated RBC Nucleated RBC % (auto) Sodium Potassium Chloride Carbon Dioxide Anion Gap BUN Creatinine Estim Creat Clear Calc Estimated GFR Random Glucose Calcium Urine Color Urine Appearance Urine pH Ur Specific [place] Urine Protein Urine Glucose (UA) Urine Ketones Urine Blood Urine Nitrite Ur Leukocyte Esterase Urine RBC Urine WBC Ur Squamous Epith Cells Calcium Oxalate Crystal Urine Bacteria COVID-19 (BOB) Negative COVID-19 Clin Com See Note Blood Type Antibody Screen CXR 06/10/2021: No acute process seen. There are scattered ill-defined opacities in the right midlung question nodules EKG 06/09/2021: SR 95. Accelerated Junctional rhythm T wave abnormality, consider inferior ischemia Abnormal ECG No previous ECGs available Airway Mallampati Class: III (Small mouth opening) TM Dist: >3cm Neck ROM: Limited Loose/Missing/Broken Teeth: Yes (Many missing) Heart: RRR Lungs: CTAB. Diminished Assessment and Plan Final Anesthetic Review Family History of Problems with Anesthesia: No History of Problems with Anesthesia: No NPO: Yes ASA Class: III Final Preanesthetic Review: No Changes in Pt Med Stat, Meds/Allgs Chart Reviewed, Consent Obtained/Reviewed and Anes Risks/Benef Reviewed Patient Risk: Intermediate Procedure Risk: Intermediate Assessment/Block/Sedation in : Assess/Block/Sedation- Anesthetic Plan Anesthetic Plan: GA
[2021-06-10] MEDS: Lactated Ringers 1,000 ML 100 ML IVCONT ×2 (10:14→14:36)
--- NOTE | 2021-06-10 10:16 | PC.NURSE ---
pts Christiano Krause bedside for consents. verified pt is a full code at this time, he states he does not have any papers but will look into it , suggested talking with the shelter case manager if that is something they want. The states the pt had two rings informed him she came down to this area with no jewelry on, tiger connect to dia wilde rn to assist he will be coming up to her room to wait for DR to call him and will look for the rings.
--- NOTE | 2021-06-10 13:06 | PC.NURSE ---
1254 patient stated she was dizzy cardiac cath rn showed R to R pause 3.[address] Madden and dayanara Salas aware. awaiting further orders. patient awake alert no further c/o dizziness hr SR 83 bp 110/65
[2021-06-10] MEDS: oxyCODONE HCl Immed Release 5 MG TABLET PO (14:02)
--- NOTE | 2021-06-10 14:32 | P.OP_ITS ---
Operative Note Operative Note Date of Service: 06/10/21 Narrative: OPERATIVE PROCEDURE SURGEON: Dr Santos(Sarah Beth) Instrum ARTIFICIAL TEETH INSPECTOR: Deanna Dorman PAC PREOP DIAGNOSIS: Subcapital fracture right hip POSTOP DIAGNOSIS: Same OPERATIVE PROCEDURE: Righthip hemiarthroplasty- Accolade II size 5x 127 degree femoral component, standard 26 mm head with 42 mm bipolar cup CLINICAL NOTE: This very pleasant individual comes in today in regards to their righthip. The had the above-noted injury. Therefore after explaining the risks benefits and alternatives and answering all the questions it was mutually agreed upon to carry following procedure. OPERATIVE DETAILS Under a generalanesthetic the patient was placed in the leftdecubitus position. The leg was then prepped and draped in standard fashion. Surgical time-out was then performed. Patient is identified. Procedure confirmed. Site confirmed. Medical and allergy history was reviewed. Preoperative antibiotics were given. Standard DVT prophylaxis in place. All was discussed and agreed upon. Standard anterolateral approach to the hip was carried out. Hemostasis was achieved along the way at all points with electrocautery. This brought us down to the level of the fascia horace. This was divided along the length of the incision. The abductor musculature was identified. The anterior 2/3 were divided through tendon directly onto the greater trochanter. Muscle was then elevated off the capsule down to the level of the acetabulum. At this point a capsulectomy was then performed. The fracture was delivered into the wound. The head neck was resected according to the preoperative templating. the head was then removed in standard fashion. It was then measured to a 40 to mm size. The remainder of the capsule and acetabular labrum were excised. the acetabulum was inspected found to be intact and therefore we turned our attention to the femur. Box osteotome was used to lateralize the canal. T Reamer was then used to sound the canal. The canal was then sequentially broached from a 0 to a 5. It had excellent medial lateral fit and rotational stability. A trial reduction was then performed using the 127 degree collar, standard length and the 42head. The hip was reduced. It was placed through range of motion. It demonstrated excellent leg lengths. Full range of motion. Stable in all positions. And therefore the Accolade II, size 5femoral component along with the 36 mm standard head, and the 42 mm bipolar shell were selected and brought up to the table. The hip was redislocated. The trial components were then all removed. The acetabular was thoroughly irrigated. Turning our attention back to the femur, it was thoroughly irrigated. The permanent component was brought up to the table. It was then tapped into place with the same fit and fill as the broach had been. The head was brought up. The [place] taper was cleaned and dried. The head with the neck sleeve inserted was tapped into place. Final reduction was then performed which again demonstrated excellent leg length is. Full range of motion. And excellent stability. Therefore proceeded closure. The wound was thoroughly irrigated. The abductor musculature was repaired with 2. Dexon. The fascia horace was closed with 2. Quill suture. The skin was approximated using interrupted 2-0 Dexon. The skin was then closed with bria. Sterile dressing was then applied. The patient then had the anesthesi a reversed. They were transferred supine to the room bed then taken to recovery room in good condition. Intraoperatively there was approximately 150 cc of blood loss. No intraop transfusions or complications.
--- NOTE | 2021-06-10 15:02 | ECG_ITS ---
Test Reason : SINSUS PAUSE Blood Pressure : / mmHG Vent. Rate : 088 BPM Atrial Rate : 088 BPM P-R Int : 142 ms QRS Dur : 082 ms QT Int : 370 ms P-R-T Axes : 059 000 031 degrees QTc Int : 447 ms Normal sinus rhythm Normal ECG When compared with ECG of 09-JUN-2021 15:01, No significant changes seen Referred By: Bull Geller Electronically Signed By:FLAKO SAAVEDRA
--- NOTE | 2021-06-10 15:19 | P.PNIM_ITS ---
Subjective Subjective Date of Service: 06/10/21 Interval History: seen and examined this afternoon post-op patient is comfortable, denies any chest pain / sob / dizziness / headache and son bedside ROS General - no fevers or chills Cardiovascular - no chest pain Respiratory - no shortness of breath or cough Abdominal- no abdominal pain, nausea, vomiting, diarrhea Ext - some soreness at surgical site Physical Exam Vital Signs: Vital Signs: Last Vital Signs Temp 97.9 F 06/10/21 14:38 Pulse 86 06/10/21 14:38 Resp 16 06/10/21 14:38 BP 96/55 L 06/10/21 14:38 Pulse Ox 92 06/10/21 14:38 Body Mass Index 29.2 General - no acute distress, appears comfortable Cardiovascular - regular rate and rhythm, S1-S2 Lungs - normal respiratory effort, clear to auscultation bilaterally, no wheezing Abdomen - soft, nontender, no rebound or guarding Neuro - awake and alert, no focal deficits Cardio: Other: Objective Data Current Medications Generic Name Dose Route Start Last Admin Trade Name Freq PRN Reason Stop Dose Admin Acetaminophen 650 mg 06/09/21 14:39 Acetaminophen Supp 650 Mg Supp.Rect [place] Q6H PRN Pain, Mild (Pain Scale 1-3) Aspirin 325 mg 06/11/21 22:00 Aspirin 325 Mg Tablet PO BID [facility] Docusate Sodium 100 mg 06/09/21 21:00 06/10/21 08:13 Docusate Sodium 100 Mg Capsule PO Not Given BID JOMAR Folic Acid 1 mg 06/11/21 09:00 Folic Acid 1 Mg Tablet PO DAILY JOMAR Lactated Ringer's 1,000 mls @ 100 mls/hr 06/10/21 10:15 06/10/21 14:36 Lr IVCONT 100 mls/hr .Q10H JOMAR Administration Cefazolin Sodium 2 gm/ Sodium 50 mls @ 100 mls/hr 06/10/21 16:16 Chloride IV 06/10/21 16:45 ONCE@1616 ONE Levothyroxine Sodium 75 mcg 06/11/21 09:00 Levothyroxine Sodium 75 Mcg Tablet PO DAILY JOMAR Morphine Sulfate 2 mg 06/09/21 14:39 06/09/21 15:00 Morphine Sulfate 2 Mg/Ml Cartridge IVPUSH 2 mg Q2H PRN Administration Pain, Severe (Pain Scale 7-10) Naloxone HCl 0.2 mg 06/09/21 14:39 Naloxone Hcl 0.4 Mg/Ml Vial IVPUSH Q2M PRN Excessive sedation or RR < 8 Ondansetron HCl 4 mg 06/10/21 12:54 Ondansetron Hcl 4 Mg/2 Ml Vial IVPUSH Q8H PRN Nausea and Vomiting Oxycodone HCl 10 mg 06/09/21 16:00 06/10/21 10:48 Oxycodone Hcl Immed Release 5 Mg Tablet PO Not Given Q6H [facility] Sodium Chloride 3 ml 06/09/21 16:00 06/10/21 14:36 0.9 % Sodium Chloride Flush 3 Ml Syringe IVFLUSH Not Given QSHIFT [facility] Sodium Chloride 3 ml 06/10/21 16:00 06/10/21 14:36 0.9 % Sodium Chloride Flush 3 Ml Syringe IVFLUSH Not Given QSSCFT [facility] Vitamin D 25 mcg 06/11/21 09:00 Cholecalciferol (Vitamin D3) 25 Mcg Tablet PO DAILY [facility] Labs CBC & Chem 7: 06/10/21 06:17 06/10/21 06:17 Labs: Laboratory Results - last 24 hr 06/09/21 06/09/21 06/10/21 14:50 14:50 06:17 MCV 87.6 MCH 29.4 MCHC 33.6 RDW 12.6 Plt Count 294 MPV 10.5 Immature Gran % (Auto) 0.6 H Neut % (Auto) 81.2 H Lymph % (Auto) 12.0 L [place] % (Auto) 5.6 Eos % (Auto) 0.3 Baso % (Auto) 0.3 Lymph # (Auto) 1.7 [place] # (Auto) 0.8 Eos # (Auto) 0.1 Baso # (Auto) 0.0 Abs Immat Gran (auto) 0.09 H Absolute Neuts (auto) 11.7 H Absolute Nucleated RBC 0.000 Nucleated RBC % (auto) 0.0 Anion Gap 15 Estim Creat Clear Calc 84.0 Estimated GFR > 60 Random Glucose 128 H Calcium 9.5 COVID-19 (BOB) COVID-19 Clin Com Blood Type Antibody Screen NEGATIVE 06/10/21 06/10/21 06/10/21 06:17 06:58 09:28 MCV MCH MCHC RDW Plt Count MPV Immature Gran % (Auto) Neut % (Auto) Lymph % (Auto) [place] % (Auto) Eos % (Auto) Baso % (Auto) Lymph # (Auto) [place] # (Auto) Eos # (Auto) Baso # (Auto) Abs Immat Gran (auto) Absolute Neuts (auto) Absolute Nucleated RBC Nucleated RBC % (auto) Anion Gap 12 Estim Creat Clear Calc 88.7 Estimated GFR > 60 Random Glucose 102 Calcium 9.2 COVID-19 (BOB) Negative COVID-19 Clin Com See Note Blood Type O Positive Antibody Screen NEGATIVE Assessment and Plan (1) Sinus pause: Status: Acute Assessment and Plan: This is a 56 yo F with a PMH of dementia (per documentation, cause unknown), hypothyroidism who presented to the hospital after a mechanical fall resulting in a subcap. R fem fracture. She underwent operative repair today and post op in the PACU was noted to have several sinus pauses, longest one appearing to be about 5.9s. 1. Sinus pauses none further since arrival to the floor, now SR in the 90s check lytes now keep on tele check TSH with reflex T4 cardiology is aware of the case will order echo, check HS trop-I 2. Hypothyroidism synthroid 3. Hip fx mgmt per ortho will follow Quality Stroke Does the patient have a stroke diagnosis?: No VTE Prior VTE?: No VTE Risk Level:: Medical - low VTE Device Contraindication: N/A - Device Ordered VTE Drug Contraindication: Treatment Not Indicated
[2021-06-10 17:41] LABS: Troponin-I High Sensitivity 4.5 ng/L (<3.5-17.0)
[2021-06-10 17:50] LABS: Anion Gap 14 (12-20); Blood Urea Nitrogen 7 mg/dL (9-16); Carbon Dioxide 23 mmol/L (22-29); Chloride 106 mmol/L (96-108); Creatinine Clr Calc Pharmacy 82.5; Estimated Glomerular Filt Rate > 60; Glucose Random 140 mg/dL (60-115); Magnesium 1.7 mg/dL (1.6-2.6); Potassium 3.7 mmol/L (3.3-5.1); Sodium 139 mmol/L (135-145)
[2021-06-10 17:56] LABS: TSH reflex Free T4 (Prenatal) 0.42 uIU/mL (0.32-4.0)
[2021-06-10 19:07] LABS: Free T4 (Free Thyroxine) 1.21 ng/dL (0.71-1.85)
--- NOTE | 2021-06-10 19:31 | PC.NURSE ---
transferred up from Med/surg this afternoon, 17:00; report recieved from [facility]. Patient is alert, oriented to person and place, but confused, disoriented to time and situation, limited short term memory; educated regarding use of purewick and call spencer and restrictions on activity; plan bedrest until evaluated by PT.
[2021-06-10] MEDS: Docusate Sodium 100 MG CAPSULE PO (21:07)
[2021-06-11] VITALS (8 sets, daily range): BP systolic 93–116; BP diastolic 48–60; PULSE 95–114; RESP 15–18; TEMP 36.1–38.2; O2SAT 91–96
[2021-06-11] MEDS: oxyCODONE HCl Immed Release 5 MG TABLET 10 MG PO ×4 (00:32→22:29)
[2021-06-11] MEDS: Lactated Ringers 1,000 ML 100 ML IVCONT ×2 (04:19→14:32)
[2021-06-11 05:58] LABS: MANUAL DIFF FLAG NO
[2021-06-11 06:07] LABS: Basophils Percent Auto 0.2 % (0-2); Eosinophils Percent Auto 0.1 % (0-4); Hematocrit 32.8 % (37-47); Hemoglobin 10.7 g/dl (12.0-16.0); Imm Gran Abs Auto 0.12 X10*3/uL (0.00-0.03); Imm Gran Pct Auto 0.8 % (0.0-0.4); Lymphocytes Absolute Auto 1.4 X10*3/uL (1.2-4.9); Lymphocytes Percent Auto 9.3 % (20-40); Mean Corpuscular HGB Conc 32.6 g/dl (31.0-35.0); Mean Corpuscular Hemoglobin 28.7 pg (27.0-33.0); Mean Corpuscular Volume 87.9 fL (80-98); Mean Platelet Volume 11.1 fL (9.4-12.3); Monocytes Percent Auto 6.3 % (2-11); Neutrophils Absolute Auto 12.8 X10*3/uL (2.0-8.3); Neutrophils Percent Auto 83.3 % (45-73); Platelet Count 253 X10*3/uL (160-400); Red Blood Count 3.73 X10*6/uL (4.20-5.50); Red Cell Distribution Width 12.7 % (11.0-16.0); White Blood Count 15.3 X10*3/uL (4.8-10.8)
[2021-06-11 06:43] LABS: Anion Gap 11 (12-20); Blood Urea Nitrogen 8 mg/dL (9-16); Calcium 8.7 mg/dL (8.4-10.2); Carbon Dioxide 26 mmol/L (22-29); Chloride 105 mmol/L (96-108); Creatinine Clr Calc Pharmacy 94.5; Estimated Glomerular Filt Rate > 60; Glucose Random 91 mg/dL (60-115); Potassium 3.5 mmol/L (3.3-5.1); Sodium 138 mmol/L (135-145)
--- NOTE | 2021-06-11 07:48 | P.PNOP_ITS ---
Subjective Subjective Date of Service: 06/11/21 Interval history: Pod 1 status post right hip hemiarthroplasty with Dr. Madden. Patient resting comfortably in bed. Pain is well managed. While the patient was in PACU she had a cardiac pause which prompted transfer to telemetry. Medicine and Cardiology following patient as well. She denies any shortness of breath, dizziness, chest pain or abdominal pain. Physical Exam Vital Signs: Vital Signs: Last Vital Signs Temp 100.7 F H 06/11/21 07:20 Pulse 103 H 06/11/21 07:20 Resp 16 06/11/21 07:20 BP 112/48 L 06/11/21 07:20 Pulse Ox 91 L 06/11/21 07:20 Body Mass Index 29.2 Const: General: cooperative, healthy appearing and no acute distress Resp: Effort & Inspection: normal respiratory effort and able to speak in complete sentences Cardio: Rate: regular rate Peripheral pulses: Peripheral pulses 2+ throughout GI: Palpation (GI): Soft to palpation Skin: Lesions: no lesions Rashes: no rashes Extrem: Other: Right hip no ecchymosis, redness or drainage. Aquacel dressing is clean dry and intact. Patient is able to dorsiflex and plantar flex. Sensation intact. NVI. Procedures Date of Service Date of Service: 06/11/21 Progress Note: A&P Assessment and plan (1) Displaced fracture of right femoral neck: Status: Acute Assessment and Plan: Continue pain mgmnt Begin ASA for dvt ppx begin PT for right hip hemiarthroplasty Dispo planning-Pending PT eval, pain mgmnt, medicine and cardiology consult (2) Status post hip hemiarthroplasty: Status: Acute Fall Risk Details Current Medications: Current Medications Generic Name Dose Route Start Last Admin Trade Name Freq PRN Reason Stop Dose Admin Acetaminophen 650 mg 06/09/21 14:39 Acetaminophen Supp 650 Mg Supp.Rect [place] Q6H PRN Pain, Mild (Pain Scale 1-3) Aspirin 325 mg 06/11/21 22:00 Aspirin 325 Mg Tablet PO BID JOMAR Docusate Sodium 100 mg 06/09/21 21:00 06/10/21 21:07 Docusate Sodium 100 Mg Capsule PO 100 mg BID JOMAR Administration Folic Acid 1 mg 06/11/21 09:00 Folic Acid 1 Mg Tablet PO DAILY JOMAR Lactated Ringer's 1,000 mls @ 100 mls/hr 06/10/21 10:15 06/11/21 04:19 Lr IVCONT 100 mls/hr .Q10H JOMAR Administration Levothyroxine Sodium 75 mcg 06/11/21 09:00 Levothyroxine Sodium 75 Mcg Tablet PO DAILY JOMAR Morphine Sulfate 2 mg 06/09/21 14:39 06/09/21 15:00 Morphine Sulfate 2 Mg/Ml Cartridge IVPUSH 2 mg Q2H PRN Administration Pain, Severe (Pain Scale 7-10) Naloxone HCl 0.2 mg 06/09/21 14:39 Naloxone Hcl 0.4 Mg/Ml Vial IVPUSH Q2M PRN Excessive sedation or RR < 8 Ondansetron HCl 4 mg 06/10/21 12:54 Ondansetron Hcl 4 Mg/2 Ml Vial IVPUSH Q8H PRN Nausea and Vomiting Oxycodone HCl 10 mg 06/09/21 16:00 06/11/21 00:32 Oxycodone Hcl Immed Release 5 Mg Tablet PO 10 mg Q6H JOMAR Administration Sodium Chloride 3 ml 06/09/21 16:00 06/10/21 21:08 0.9 % Sodium Chloride Flush 3 Ml Syringe IVFLUSH Not Given QSHIFT JOMAR Sodium Chloride 3 ml 06/10/21 16:00 06/10/21 21:08 0.9 % Sodium Chloride Flush 3 Ml Syringe IVFLUSH Not Given QSHIFT JOMAR Vitamin D 25 mcg 06/11/21 09:00 Cholecalciferol (Vitamin D3) 25 Mcg Tablet PO DAILY [facility] Time Spent With Patient Time: Total time spent is greater than 50% in coordination of care (as documented) at patient's floor/unit and/or counseling patient: Time with patient: less than 15 minutes Quality Stroke Does the patient have a stroke diagnosis?: No VTE Prior VTE?: No VTE Risk Level:: Medical - low VTE Device Contraindication: N/A - Device Ordered VTE Drug Contraindication: Treatment Not Indicated
[2021-06-11] MEDS: Levothyroxine Sodium 75 MCG TABLET PO (09:00)
--- NOTE | 2021-06-11 09:06 | PC.NURSE ---
Skin assessment completed today. Patient has a surgical site on right hip with dermabond dressing, bruising under right eye and bilateral arms, blanchable redness to left hip. Present on admission. No other skin issues noted at this time.
[2021-06-11] MEDS: Docusate Sodium 100 MG CAPSULE PO ×2 (10:17→22:29)
[2021-06-11] MEDS: 0.9 % Sodium Chloride Flush 3 ML SYRINGE IVFLUSH ×2 (10:17→22:30)
[2021-06-11] MEDS: Cholecalciferol (Vitamin D3) 25 MCG TABLET PO (10:17)
[2021-06-11] MEDS: Folic Acid 1 MG TABLET PO (10:18)
--- NOTE | 2021-06-11 11:43 | P.CONCA_ITS ---
History of Present Illness History of Present Illness Date of Service: 06/11/21 Consult reason: other (pause on EKG) Chief complaint: right femoral neck fracture Narrative: This is a cardiology consultation regarding a pause on telemetry while she was in the PACU. It seems that patient had dizziness at that time. Patient has a background of dementia. Per H and P, it appears that she suffered a fall when she was transferring to a wheelchair. This led to hip fracture for which she underwent surgery. Patient herself denies any dizzy spells or syncopal episodes at any point. She states that she feels well at this time and does not have any specific cardiac symptoms at all. We have been asked to comment on the pauses. Review of Systems Review of Systems: Yes all other systems are reviewed and are negative Cardiovascular: Cardiovascular: Reports as per HPI, Reports no additional cardiovascular complaints, Denies acrocyanosis, Denies cool extremities, Denies painful fingertips, Denies chest pain, Denies chest pain at rest, Denies diaphoresis, Denies syncope, Denies irregular heart rhythm, Denies claudication, Denies leg edema, Denies lightheadedness, Denies palpitations and Denies dyspnea Respiratory: Respiratory: Denies dyspnea Neurologic: Denies syncope Endocrine: Endocrine: Denies palpitations PMFSH Past Medical History Medical History Balance disorder Dementia Hypothyroidism Lactose intolerance Left leg weakness Memory loss PTSD (post-traumatic stress disorder) Tobacco dependence Family History Pertinent family history: No pertinent family history noted. Surgical History Surgical History No pertinent past surgical history Social History Social History Household Members: Spouse Housing: Apartment Alcohol intake: current Alcohol intake frequency: holidays/special occasions only Patient Tobacco Use Status: Current everyday Tobacco user Tobacco use type: Cigarette Cigarettes Per Day: 8 Use of substances other than those prescribed or required for medical reasons: No Currently Displaying Signs/Symptoms of Drug Intoxication Withdrawal: No Have you been hit, kicked, punched, or otherwise hurt by someone within the past year? If so, by whom?: No Do you feel safe in your current relationship?: No Is there a partner from a previous relationship who is making you feel unsafe now?: No Are you made to feel afraid or neglected: No Advance Directives: No Advance Directives Information Provided: No Advance Directives on File: No Do you have thoughts of harming others: None Do you have a plan to hurt others: No Plan Recently lost weight without trying: No How much weight loss: Not applicable Eating poorly because of decreased appetite: No Nutrition screen score: 0 Nutrition Risks: No Nutritional Risk Patient : No : No Poor oral hygiene: No service: No Current occupational status: disabled Meds Allergies Allergy/AdvReac Type Severity Reaction Status Date / Time No Known Allergies Allergy Verified 06/04/21 16:48 Active Medications: Current Medications Generic Name Dose Route Start Last Admin Trade Name Freq PRN Reason Stop Dose Admin Acetaminophen 650 mg 06/09/21 14:39 Acetaminophen Supp 650 Mg Supp.Rect [place] Q6H PRN Pain, Mild (Pain Scale 1-3) Aspirin 325 mg 06/11/21 22:00 Aspirin 325 Mg Tablet PO BID JMOAR Docusate Sodium 100 mg 06/09/21 21:00 06/11/21 10:17 Docusate Sodium 100 Mg Capsule PO 100 mg BID JOMAR Administration Folic Acid 1 mg 06/11/21 09:00 06/11/21 10:18 Folic Acid 1 Mg Tablet PO 1 mg DAILY JOMAR Administration Lactated Ringer's 1,000 mls @ 100 mls/hr 06/10/21 10:15 06/11/21 04:19 Lr IVCONT 100 mls/hr .Q10H JOMAR Administration Levothyroxine Sodium 75 mcg 06/11/21 09:00 06/11/21 09:00 Levothyroxine Sodium 75 Mcg Tablet PO 75 mcg DAILY JOMAR Administration Morphine Sulfate 2 mg 06/09/21 14:39 06/09/21 15:00 Morphine Sulfate 2 Mg/Ml Cartridge IVPUSH 2 mg Q2H PRN Administration Pain, Severe (Pain Scale 7-10) Naloxone HCl 0.2 mg 06/09/21 14:39 Naloxone Hcl 0.4 Mg/Ml Vial IVPUSH Q2M PRN Excessive sedation or RR < 8 Ondansetron HCl 4 mg 06/10/21 12:54 Ondansetron Hcl 4 Mg/2 Ml Vial IVPUSH Q8H PRN Nausea and Vomiting Oxycodone HCl 10 mg 06/09/21 16:00 06/11/21 10:29 Oxycodone Hcl Immed Release 5 Mg Tablet PO 10 mg Q6H JOMAR Administration Sodium Chloride 3 ml 06/09/21 16:00 06/11/21 10:17 0.9 % Sodium Chloride Flush 3 Ml Syringe IVFLUSH 3 ml QSHIFT JOMAR Administration Sodium Chloride 3 ml 06/10/21 16:00 06/11/21 10:17 0.9 % Sodium Chloride Flush 3 Ml Syringe IVFLUSH Not Given QSHIFT JOMAR Vitamin D 25 mcg 06/11/21 09:00 06/11/21 10:17 Cholecalciferol (Vitamin D3) 25 Mcg Tablet PO 25 mcg DAILY JOMAR Administration Physical Exam Vital Signs: Vital Signs: Last Vital Signs Temp 100.7 F H 06/11/21 07:20 Pulse 103 H 06/11/21 09:15 Resp 16 06/11/21 07:20 BP 112/48 L 06/11/21 09:15 Pulse Ox 91 L 06/11/21 09:15 Body Mass Index 29.2 Const: General: cooperative and no acute distress HENMT: Other: Unremarkable Neck: Neck: Yes normal visual inspection Chest: Chest palpation & inspection: normal inspection of the chest Resp: Auscultation: clear to auscultation bilaterally, no crackles and no wheezes Cardio: Jugular venous distension: no JVD Palpation: normal PMI Heart sounds: S1 normal heart sound present, S2 normal heart sound present, no gallops, no murmurs and no rubs GI: Palpation (GI): Soft to palpation Back/Spine/Pelvis: Other: unremarkable Skin: General skin exam: no rashes or lesions noted Neuro: Cranial nerves: Yes Other cranial nerve findings present Extrem: General: Yes no clubbing, cyanosis or edema Psych: Mental Status: other Results Labs and Meds Result diagrams: 06/11/21 05:14 06/11/21 05:14 Lab results: Laboratory Results - last 24 hr 06/10/21 06/10/21 06/10/21 16:37 16:37 16:38 WBC RBC Hgb Hct MCV MCH MCHC RDW Plt Count MPV Immature Gran % (Auto) Neut % (Auto) Lymph % (Auto) [place] % (Auto) Eos % (Auto) Baso % (Auto) Lymph # (Auto) [place] # (Auto) Eos # (Auto) Baso # (Auto) Abs Immat Gran (auto) Absolute Neuts (auto) Absolute Nucleated RBC Nucleated RBC % (auto) Sodium 139 Potassium 3.7 Chloride 106 Carbon Dioxide 23 Anion Gap 14 BUN 7 L Creatinine 0.71 Estim Creat Clear Calc 82.5 Estimated GFR > 60 Random Glucose 140 H D Calcium 9.0 Magnesium 1.7 Troponin I High Sens 4.5 Free T4 1.21 TSH 3rd Generation 0.42 06/11/21 06/11/21 05:14 05:14 WBC 15.3 H RBC 3.73 L Hgb 10.7 L Hct 32.8 L MCV 87.9 MCH 28.7 MCHC 32.6 RDW 12.7 Plt Count 253 MPV 11.1 Immature Gran % (Auto) 0.8 H Neut % (Auto) 83.3 H Lymph % (Auto) 9.3 L [place] % (Auto) 6.3 Eos % (Auto) 0.1 Baso % (Auto) 0.2 Lymph # (Auto) 1.4 [place] # (Auto) 1.0 Eos # (Auto) 0.0 Baso # (Auto) 0.0 Abs Immat Gran (auto) 0.12 H Absolute Neuts (auto) 12.8 H Absolute Nucleated RBC 0.000 Nucleated RBC % (auto) 0.0 Sodium 138 Potassium 3.5 Chloride 105 Carbon Dioxide 26 Anion Gap 11 L BUN 8 L Creatinine 0.62 Estim Creat Clear Calc 94.5 Estimated GFR > 60 Random Glucose 91 Calcium 8.7 Magnesium Troponin I High Sens Free T4 TSH 3rd Generation ECG Interpretation: EKG with sinus rhythm at 88/Min; no significant ST-T changes. Normal OK and QT Assessment and Plan (1) Sinus pause: Status: Acute (2) Status post hip hemiarthroplasty: Status: Acute High sensitivity troponin normal range. Strips from the time of event reviewed. There is a pause of approximately 5.6 seconds. There is a shorter pauses immediately after that and then it becomes completely normal. On telemetry, she is actually in sinus tachycardia at 110/Min. Possibly all from just a vagal effect from pain. Resting EKG does not show any conduction system disease at all. Her OK interval is normal and and no other recurrent events. May check an echocardiogram to ensure there is no wall motion abnormality or ot her pathology. Otherwise, conservative care. Procedures Date of Service Date of Service: 06/11/21
--- NOTE | 2021-06-11 11:57 | P.PNIM_ITS ---
Subjective Subjective Date of Service: 06/11/21 Interval History: Seen and examined this morning Follow-up for medical consultation No further sinus pauses on telemetry Patient talking on the phone Physical Exam Vital Signs: Vital Signs: Last Vital Signs Temp 98.2 F 06/11/21 11:47 Pulse 114 H 06/11/21 11:47 Resp 18 06/11/21 11:47 BP 104/59 L 06/11/21 11:47 Pulse Ox 94 06/11/21 11:47 Body Mass Index 29.2 Const: General: comfortable, no acute distress, alert and awake Nutritional Appearance: well nourished HENMT: Head: Yes normocephalic and Yes atraumatic Eyes: Sclerae: sclerae normal Chest: Chest palpation & inspection: normal inspection of the chest Resp: Effort & Inspection: normal respiratory effort and no respiratory distr ess Cardio: Rate: regular rate Rhythm: regular rhythm GI: Palpation (GI): Soft to palpation and nontender Neuro: Cranial nerves: Yes CN's II-XII intact bilaterally and Yes Bilaterally intact EOM present Objective Data Current Medications Generic Name Dose Route Start Last Admin Trade Name Freq PRN Reason Stop Dose Admin Acetaminophen 650 mg 06/09/21 14:39 Acetaminophen Supp 650 Mg Supp.Rect [place] Q6H PRN Pain, Mild (Pain Scale 1-3) Aspirin 325 mg 06/11/21 22:00 Aspirin 325 Mg Tablet PO BID JOMAR Docusate Sodium 100 mg 06/09/21 21:00 06/11/21 10:17 Docusate Sodium 100 Mg Capsule PO 100 mg BID JOMAR Administration Folic Acid 1 mg 06/11/21 09:00 06/11/21 10:18 Folic Acid 1 Mg Tablet PO 1 mg DAILY JOMAR Administration Lactated Ringer's 1,000 mls @ 100 mls/hr 06/10/21 10:15 06/11/21 04:19 Lr IVCONT 100 mls/hr .Q10H JOMAR Administration Levothyroxine Sodium 75 mcg 06/11/21 09:00 06/11/21 09:00 Levothyroxine Sodium 75 Mcg Tablet PO 75 mcg DAILY JOMAR Administration Morphine Sulfate 2 mg 06/09/21 14:39 06/09/21 15:00 Morphine Sulfate 2 Mg/Ml Cartridge IVPUSH 2 mg Q2H PRN Administration Pain, Severe (Pain Scale 7-10) Naloxone HCl 0.2 mg 06/09/21 14:39 Naloxone Hcl 0.4 Mg/Ml Vial IVPUSH Q2M PRN Excessive sedation or RR < 8 Ondansetron HCl 4 mg 06/10/21 12:54 Ondansetron Hcl 4 Mg/2 Ml Vial IVPUSH Q8H PRN Nausea and Vomiting Oxycodone HCl 10 mg 06/09/21 16:00 06/11/21 10:29 Oxycodone Hcl Immed Release 5 Mg Tablet PO 10 mg Q6H JOMAR Administration Sodium Chloride 3 ml 06/09/21 16:00 06/11/21 10:17 0.9 % Sodium Chloride Flush 3 Ml Syringe IVFLUSH 3 ml QSHIFT JOMAR Administration Sodium Chloride 3 ml 06/10/21 16:00 06/11/21 10:17 0.9 % Sodium Chloride Flush 3 Ml Syringe IVFLUSH Not Given QSHIFT JOMAR Vitamin D 25 mcg 06/11/21 09:00 06/11/21 10:17 Cholecalciferol (Vitamin D3) 25 Mcg Tablet PO 25 mcg DAILY JOMAR Administration Labs CBC & Chem 7: 06/11/21 05:14 06/11/21 05:14 Labs: Laboratory Results - last 24 hr 06/10/21 06/10/21 06/10/21 16:37 16:37 16:38 MCV MCH MCHC RDW Plt Count MPV Immature Gran % (Auto) Neut % (Auto) Lymph % (Auto) [place] % (Auto) Eos % (Auto) Baso % (Auto) Lymph # (Auto) [place] # (Auto) Eos # (Auto) Baso # (Auto) Abs Immat Gran (auto) Absolute Neuts (auto) Absolute Nucleated RBC Nucleated RBC % (auto) Anion Gap 14 Estim Creat Clear Calc 82.5 Estimated GFR > 60 Random Glucose 140 H D Calcium 9.0 Magnesium 1.7 Troponin I High Sens 4.5 Free T4 1.21 TSH 3rd Generation 0.42 06/11/21 06/11/21 05:14 05:14 MCV 87.9 MCH 28.7 MCHC 32.6 RDW 12.7 Plt Count 253 MPV 11.1 Immature Gran % (Auto) 0.8 H Neut % (Auto) 83.3 H Lymph % (Auto) 9.3 L [place] % (Auto) 6.3 Eos % (Auto) 0.1 Baso % (Auto) 0.2 Lymph # (Auto) 1.4 [place] # (Auto) 1.0 Eos # (Auto) 0.0 Baso # (Auto) 0.0 Abs Immat Gran (auto) 0.12 H Absolute Neuts (auto) 12.8 H Absolute Nucleated RBC 0.000 Nucleated RBC % (auto) 0.0 Anion Gap 11 L Estim Creat Clear Calc 94.5 Estimated GFR > 60 Random Glucose 91 Calcium 8.7 Magnesium Troponin I High Sens Free T4 TSH 3rd Generation Assessment and Plan (1) Status post hip hemiarthroplasty: Status: Acute (2) Sinus pause: Status: Acute Assessment and Plan: This is a 56 yo F with a PMH of dementia (per documentation, cause unknown), hypothyroidism who presented to the hospital after a mechanical fall resulting in a subcap. R fem fracture. She underwent operative repair 06/10 and post op in the PACU was noted to have several sinus pauses, longest one appearing to be about 5.9s. Fever post -op likely r/t atelectasis -incentive spirometry -if recurrent fever would recommend infectious workup including blood cultures and lactic acid Normocytic anemia follow cbc Sinus pauses none further since arrival to the floor Electrolytes ok TSH within normal limits Troponin negative -echo ordered Seen by Cardiology, no further workup at this time Hypothyroidism synthroid Pulmonary nodules Possible nodule seen on chest x-ray Recommend outpatient CT scan for follow-up Hip fx mgmt per ortho tobacco dependence -NRT -smoking cessation advised Attending-Dr. Geller Quality Stroke Does the patient have a stroke diagnosis?: No VTE Prior VTE?: No VTE Risk Level:: Medical - low VTE Device Contraindication: N/A - Device Ordered VTE Drug Contraindication: Treatment Not Indicated
--- NOTE | 2021-06-11 13:56 | HO.POSTANES ---
Post Anesthesia Evaluation Post Anesthesia Evaluation Vital Signs: Vital Signs Temp Pulse Resp BP Pulse Ox 06/11/21 13:05 95 06/11/21 11:47 98.2 F 114 H 18 104/59 L 94 06/11/21 09:15 103 H 112/48 L 91 L 06/11/21 07:20 100.7 F H 103 H 16 112/48 L 91 L 06/11/21 04:00 98.8 F 95 18 104/54 L 93 Anesthesia: General Endotracheal-GETA Mental Status: Awake Pain Control: Satisfactory Nausea/Vomiting: None Hydration: Adequate Anesthesia-Related Issues: No Anes. Related Issues
--- NOTE | 2021-06-11 14:00 | CA_ITS ---
Transthoracic Echocardiogram Patient (Last, First, Middle): Gonzalez Santiago, Gender: Female Date of : 1965 Age: 56 Procedure Date: 06/11/2021 Procedure Type: Transthoracic Echocardiogram [place] [facility] [place]: 157.48 cm Weight: 72.58 kg BSA: 1.74 m2 Heart Rate: bpm BP: 104 / 59 mmHg Business Systems Advisor: Referring MD: Stuart Brown MD Symptoms: Bradycardia, pauses Study Quality: Fair ECG Rhythm: Sinus tachycardia Conclusions: - The left ventricular systolic function is normal. The visually estimated ejection fraction is between 65-70%. - No obvious valvular pathology seen on this study. - Mild pulmonary hypertension is present. Findings Left Ventricle Normal left ventricular cavity size. There is normal left ventricular wall thickness. The left ventricular systolic function is normal. The visually estimated ejection fraction is between 65-70%. There is no evidence of regional wall motion abnormalities. Diastolic function is normal for age. Right Ventricle Normal right ventricular cavity size and systolic function. Atria Both atria are normal in size. Aortic Valve There is a normal trileaflet aortic valve. There is no aortic valve stenosis. There is no aortic valve regurgitation. Mitral Valve The mitral valve appears normal. There is trace mitral valve regurgitation. There is no mitral valve stenosis. Pulmonic Valve The pulmonic valve was not well visualized. Tricuspid Valve There is trace tricuspid valve regurgitation. Mild pulmonary hypertension is present. Great Vessels The aortic annulus, sinuses of valsalva, asc aorta, and aortic arch are normal in size. Venous The inferior vena cava is normal in size and collapses greater than 50% with inspiration. Pericardium/Pleural There is no evidence of pericardial effusion. Prior Study Comparison No prior study available for comparison. Recommendations, Care & Conclusions No obvious valvular pathology seen on this study. Measurements 2D Linear Measurements RVIDd: 2.72 RVIDd Index: 1.56 IVSd: 0.83 0.6-0.9/0.6-1.0 cm LVIDd: 3.58 3.9-5.3/4.2-5.9 cm LVIDd Index: 2.06 2.4-3.2/2.2-3.1 cm/m2 LVIDs: 2.65 2.0-3.6 cm LVPWd: 1.02 0.7-1.1 cm Ao Root: 2.80 2.1-3.5 cm LA Diam: 2.80 2.7-3.8/3.0-4.0 cm LAIDs Index: 1.61 1.5-2.3 cm/m2 LV Mass: 118.79 67-162/88-224 g LV Mass Index: 68.27 43-95/49-115 g/m2 LVOT Diam: 2.10 3.0+(-)1.3 cm 2D Systolic Function EF 4C: 51.10 >55% EF 2C: 73.70 >55% EF BiP: 64.40 >55% Mitral Valve MV Pk E: 0.83 MV PK A: 0.71 MV Decel Time: 139.00 E/A: 1.20 E'Lateral: 11.50 E'Medial: 9.90 E/E' Med: 8.40 E/E' Lat: 7.20 Aortic Valve AoV Pk Chip: 1.48 AoV Mn Chip: 0.94 AoV VTI: 0.22 AoV Pk Grad: 9.00 Aov Mn Grad: 4.00 KILO Cont.VTI: 3.02 LVOT LVOT Pk Chip: 1.27 LVOT Mn Chip: 0.89 LVOT VTI: 0.19 LVOT Pk Grad: 6.00 LVOT Mn Grad: 4.00 LVOT Diam: 2.10 LVOT Area: 3.46 Diastolic Function MV Pk E: 0.83 MV Pk A: 0.71 E/A: 1.20 E'Medial: 9.90 E/E' Med: 8.40 E' Laterial: 11.50 E/E' Lat: 7.20 Right Ventricle TAPSE (mm): 2.08 Tricuspid Valve TR Pk Chip: 2.57 TR Pk Grad: 26.00 RA Press: 3.00 RVSP: 36.00 Great Vessels Aorta Ao Root-2D: 2.80 2.0-3.7 cm Ao Asc: 2.50 2.1-3.4 cm Ao Arch: 2.20 Updated in Other Vendor System with Status of Final Stuart Brown MD electronically signed on 06/11/2021 2:37:47 PM with status of Final
[2021-06-11] MEDS: Aspirin 325 MG TABLET PO (22:30)
[2021-06-12] VITALS (8 sets, daily range): BP systolic 77–119; BP diastolic 49–69; PULSE 72–98; RESP 16–20; TEMP 36.1–38.4; O2SAT 92–97
[2021-06-12] MEDS: Lactated Ringers 1,000 ML 100 ML IVCONT ×2 (00:54→02:36)
--- NOTE | 2021-06-12 01:05 | PC.NURSE ---
pt had a 5 second pause at approx 0045. pt asymptomatic, but when vitals taken bp was low at 78/50 on right, and 88/50 on left arm, both manual. MD notified. Bolus LR. no other orders at this time.
[2021-06-12 01:32] LABS: MANUAL DIFF FLAG NO
[2021-06-12 01:34] LABS: Basophils Percent Auto 0.2 % (0-2); Eosinophils Percent Auto 0.1 % (0-4); Hematocrit 29.8 % (37-47); Hemoglobin 9.9 g/dl (12.0-16.0); Imm Gran Abs Auto 0.23 X10*3/uL (0.00-0.03); Imm Gran Pct Auto 1.3 % (0.0-0.4); Lymphocytes Absolute Auto 2.7 X10*3/uL (1.2-4.9); Mean Corpuscular HGB Conc 33.2 g/dl (31.0-35.0); Mean Corpuscular Hemoglobin 29.5 pg (27.0-33.0); Mean Corpuscular Volume 88.7 fL (80-98); Mean Platelet Volume 10.8 fL (9.4-12.3); Monocytes Absolute Auto 1.1 X10*3/uL (0.1-1.2); Monocytes Percent Auto 6.2 % (2-11); Neutrophils Absolute Auto 13.8 X10*3/uL (2.0-8.3); Neutrophils Percent Auto 77.2 % (45-73); Platelet Count 227 X10*3/uL (160-400); Red Blood Count 3.36 X10*6/uL (4.20-5.50); White Blood Count 17.8 X10*3/uL (4.8-10.8)
[2021-06-12 02:06] LABS: Lactic Acid 1.1 mmol/L (0.5-2.0)
[2021-06-12] MEDS: 0.9 % Sodium Chloride 2,000 ML 2000 ML IV (02:34)
[2021-06-12] MEDS: oxyCODONE HCl Immed Release 5 MG TABLET 10 MG PO ×4 (05:23→20:20)
--- NOTE | 2021-06-12 06:03 | PM.EVENT ---
Event Note Date of Service: 06/12/21 Event Note: pt developed hypotension overnight. received 30cc/kg iv fluids. labs reveal increased leukocytosis. Lactic acid normal will obtain chest xray, UA. start on broad spectrum abx
[2021-06-12 07:01] LABS: MANUAL DIFF FLAG NO
[2021-06-12 07:24] LABS: Basophils Absolute Auto 0.1 X10*3/uL (0.0-0.2); Basophils Percent Auto 0.3 % (0-2); Eosinophils Percent Auto 0.2 % (0-4); Hematocrit 30.7 % (37-47); Hemoglobin 10.1 g/dl (12.0-16.0); Imm Gran Abs Auto 0.18 X10*3/uL (0.00-0.03); Lymphocytes Absolute Auto 1.8 X10*3/uL (1.2-4.9); Lymphocytes Percent Auto 10.5 % (20-40); Mean Corpuscular HGB Conc 32.9 g/dl (31.0-35.0); Mean Corpuscular Volume 88.2 fL (80-98); Mean Platelet Volume 11.4 fL (9.4-12.3); Monocytes Percent Auto 5.6 % (2-11); Neutrophils Absolute Auto 14.2 X10*3/uL (2.0-8.3); Neutrophils Percent Auto 82.4 % (45-73); Platelet Count 231 X10*3/uL (160-400); Red Blood Count 3.48 X10*6/uL (4.20-5.50); Red Cell Distribution Width 13.1 % (11.0-16.0); White Blood Count 17.3 X10*3/uL (4.8-10.8)
[2021-06-12 07:37] LABS: Anion Gap 13 (12-20); Blood Urea Nitrogen 9 mg/dL (9-16); Carbon Dioxide 24 mmol/L (22-29); Chloride 103 mmol/L (96-108); Creatinine Clr Calc Pharmacy 99.3; Estimated Glomerular Filt Rate > 60; Glucose Random 87 mg/dL (60-115); Potassium 3.5 mmol/L (3.3-5.1); Sodium 136 mmol/L (135-145)
[2021-06-12] MEDS: Aspirin 325 MG TABLET PO ×2 (09:22→20:21)
[2021-06-12] MEDS: Piperacillin Sodium/Tazobactam 3.375 GM in 0.9 % Sodium Chloride 50 ML IV ×3 (09:23→19:26)
[2021-06-12] MEDS: Nicotine 7 MG PATCH.TD24 TRANSDERMA (09:23)
[2021-06-12] MEDS: Docusate Sodium 100 MG CAPSULE PO ×2 (09:23→20:20)
[2021-06-12] MEDS: Cholecalciferol (Vitamin D3) 25 MCG TABLET PO (09:23)
[2021-06-12] MEDS: Folic Acid 1 MG TABLET PO (09:23)
[2021-06-12] MEDS: Levothyroxine Sodium 75 MCG TABLET PO (09:23)
[2021-06-12] MEDS: 0.9 % Sodium Chloride Flush 3 ML SYRINGE IVFLUSH ×5 (09:23→18:17)
[2021-06-12 09:43] LABS: Glucose Urine UA NEG (NEG); Leukocyte Esterase Urine NEG (NEG); Nitrite Urine NEG (NEG); Specific Gravity - Urine 1.025 (1.005-1.025); Urine Blood TRACE (NEG); Urine Ketones NEG (NEG); Urine Protein TRACE MG/DL (NEG-TRACE)
--- NOTE | 2021-06-12 09:54 | HO.PM.IMPN ---
Subjective Subjective Date of Service: 06/12/21 Interval History: seen and examined this morning 5 second sinus pause overnight, bp low. given fluid bolus overnight. ua pending, cxr showing ?infiltrate, started on antibiotics. does not have any complaints this morning Review of Systems Review of Systems: Yes all other systems are reviewed and are negative Constitutional Constitutional: Denies chills and Denies fever(s) Cardiovascular Cardiovascular: Denies chest pain Respiratory Respiratory: Denies cough Gastrointestinal Gastrointestinal: Denies abdominal pain Physical Exam Vital Signs: Vital Signs: Last Vital Signs Temp 97.6 F 06/12/21 08:00 Pulse 72 06/12/21 08:00 Resp 18 06/12/21 08:00 BP 96/52 L 06/12/21 08:00 Pulse Ox 95 06/12/21 08:00 Body Mass Index 29.2 Const: General: comfortable, no acute distress, alert and awake Nutritional Appearance: well nourished HENMT: Head: Yes normocephalic and Yes atraumatic Eyes: Sclerae: sclerae normal Chest: Chest palpation & inspection: normal inspection of the chest Resp: Effort & Inspection: normal respiratory effort and no respiratory distress Cardio: Rate: regular rate Rhythm: regular rhythm GI: Palpation (GI): Soft to palpation and nontender Neuro: Cranial nerves: Yes CN's II-XII intact bilaterally and Yes Bilaterally intact EOM present Objective Data Current Medications Generic Name Dose Route Start Last Admin Trade Name Freq PRN Reason Stop Dose Admin Acetaminophen 650 mg 06/09/21 14:39 Acetaminophen Supp 650 Mg Supp.Rect [place] Q6H PRN Pain, Mild (Pain Scale 1-3) Aspirin 325 mg 06/11/21 22:00 06/12/21 09:22 Aspirin 325 Mg Tablet PO 325 mg BID JOMAR Administration Docusate Sodium 100 mg 06/09/21 21:00 06/12/21 09:23 Docusate Sodium 100 Mg Capsule PO 100 mg BID JOMAR Administration Folic Acid 1 mg 06/11/21 09:00 06/12/21 09:23 Folic Acid 1 Mg Tablet PO 1 mg DAILY JOMAR Administration Piperacillin Sod/Tazobactam 50 mls @ 100 mls/hr 06/12/21 07:00 06/12/21 09:23 Sod 3.375 gm/ Sodium Chloride IV 100 mls/hr Q6H JOMAR Administration Levothyroxine Sodium 75 mcg 06/11/21 09:00 06/12/21 09:23 Levothyroxine Sodium 75 Mcg Tablet PO 75 mcg DAILY JOMAR Administration Morphine Sulfate 2 mg 06/09/21 14:39 06/09/21 15:00 Morphine Sulfate 2 Mg/Ml Cartridge IVPUSH 2 mg Q2H PRN Administration Pain, Severe (Pain Scale 7-10) Naloxone HCl 0.2 mg 06/09/21 14:39 Naloxone Hcl 0.4 Mg/Ml Vial IVPUSH Q2M PRN Excessive sedation or RR < 8 Nicotine 7 mg 06/12/21 09:00 06/12/21 09:23 Nicotine 7 Mg Patch.Td24 TRANSDERMA 7 mg DAILY JOMAR Administration Ondansetron HCl 4 mg 06/10/21 12:54 Ondansetron Hcl 4 Mg/2 Ml Vial IVPUSH Q8H PRN Nausea and Vomiting Oxycodone HCl 10 mg 06/09/21 16:00 06/12/21 05:23 Oxycodone Hcl Immed Release 5 Mg Tablet PO 10 mg Q6H JOMAR Administration Sodium Chloride 3 ml 06/09/21 16:00 06/12/21 09:23 0.9 % Sodium Chloride Flush 3 Ml Syringe IVFLUSH 3 ml QSHIFT JOMAR Administration Sodium Chloride 3 ml 06/10/21 16:00 06/12/21 09:23 0.9 % Sodium Chloride Flush 3 Ml Syringe IVFLUSH 3 ml QSHIFT JOMAR Administration Vitamin D 25 mcg 06/11/21 09:00 06/12/21 09:23 Cholecalciferol (Vitamin D3) 25 Mcg Tablet PO 25 mcg DAILY JOMAR Administration Labs CBC & Chem 7: 06/12/21 06:05 06/12/21 06:05 Labs: Laboratory Results - last 24 hr 06/12/21 06/12/21 06/12/21 01:26 01:26 06:05 MCV 88.7 88.2 MCH 29.5 29.0 MCHC 33.2 32.9 RDW 13.0 13.1 Plt Count 227 231 MPV 10.8 11.4 Immature Gran % (Auto) 1.3 H 1.0 H Neut % (Auto) 77.2 H 82.4 H Lymph % (Auto) 15.0 L 10.5 L [place] % (Auto) 6.2 5.6 Eos % (Auto) 0.1 0.2 Baso % (Auto) 0.2 0.3 Lymph # (Auto) 2.7 1.8 [place] # (Auto) 1.1 1.0 Eos # (Auto) 0.0 0.0 Baso # (Auto) 0.0 0.1 Abs Immat Gran (auto) 0.23 H 0.18 H Absolute Neuts (auto) 13.8 H 14.2 H Absolute Nucleated RBC 0.000 0.000 Nucleated RBC % (auto) 0.0 0.0 Anion Gap Estim Creat Clear Calc Estimated GFR Random Glucose Lactic Acid 1.1 Calcium 06/12/21 06:05 MCV MCH MCHC RDW Plt Count MPV Immature Gran % (Auto) Neut % (Auto) Lymph % (Auto) [place] % (Auto) Eos % (Auto) Baso % (Auto) Lymph # (Auto) [place] # (Auto) Eos # (Auto) Baso # (Auto) Abs Immat Gran (auto) Absolute Neuts (auto) Absolute Nucleated RBC Nucleated RBC % (auto) Anion Gap 13 Estim Creat Clear Calc 99.3 Estimated GFR > 60 Random Glucose 87 Lactic Acid Calcium 8.0 L D Assessment and Plan (1) Sinus pause: Status: Acute Assessment and Plan: This is a 56 yo F with a PMH of dementia (per documentation, cause unknown), hypothyroidism who presented to the hospital after a mechanical fall resulting in a subcap. R fem fracture. She underwent operative repair 06/10 and post op in the PACU was noted to have several sinus pauses, longest one appearing to be about 5.9s. Sepsis meets criteria with leukocytosis 17.3, HR in 90s lactic acid wnl cxr showing new left infiltrate; UA pending BP soft, received 30cc/kg bolus sepsis focused exam completed. -continue antibiotics -follow blood cultures Sinus pauses had another 5 second pause overnight Electrolytes ok TSH within normal limits Troponin negative Echo done, no wall motion abnormalities -re-eval by cardiology, rec pacemaker placement -pacer pads Normocytic anemia follow cbc Hypothyroidism synthroid Pulmonary nodules Possible nodule seen on chest x-ray Recommend outpatient CT scan for follow-up Hip fx s/p right hemiarthroplasty 06/10 mgmt per ortho tobacco dependence -NRT -smoking cessation advised dvt ppx - per ortho Attending-Dr. Lange Quality Stroke Does the patient have a stroke diagnosis?: No VTE Prior VTE?: No VTE Risk Level:: Medical - low VTE Device Contraindication: N/A - Device Ordered VTE Drug Contraindication: Treatment Not Indicated
[2021-06-12 10:02] LABS: Appearance Urine CLEAR; Color Urine YELLOW
[2021-06-12 10:03] LABS: RBC Urine 0-2 /HPF (0); Squamous Epithelial Cell Urine 3+ /LPF; WBC Urine 0 /HPF (0-4)
[2021-06-12 10:04] LABS: Amorphous Sediment Urine TRACE /LPF; Mucus Urine 2+ /LPF; Urine Talc Crystals TRACE /LPF
[2021-06-12] MEDS: Lactated Ringers 500 ML IVCONT (10:04)
--- NOTE | 2021-06-12 10:20 | PM.PNORT ---
Subjective Subjective Date of Service: 06/12/21 Interval history: POD2 s/p right hip enrique with Dr. Madden. Patient resting comfortably in recliner. Pain is well managed. Continues to have cardiac pauses overnight. Medicine and cardiology consulted. Physical Exam Vital Signs: Vital Signs: Last Vital Signs Temp 97.6 F 06/12/21 08:00 Pulse 72 06/12/21 08:00 Resp 18 06/12/21 08:00 BP 96/52 L 06/12/21 08:00 Pulse Ox 95 06/12/21 08:00 Body Mass Index 29.2 Const: General: cooperative, healthy appearing and no acute distress Resp: Effort & Inspection: normal respiratory effort and able to speak in complete sentences Cardio: Rate: regular rate Peripheral pulses: Peripheral pulses 2+ throughout GI: Palpation (GI): Soft to palpation Skin: Lesions: no lesions Rashes: no rashes Extrem: Other: Right hip no ecchymosis, redness, or drainage. Aquacel dressing is clean, dry, and intact. NVI. Procedures Date of Service Date of Service: 06/12/21 Progress Note: A&P Assessment and plan (1) Status post hip hemiarthroplasty: Status: Acute Assessment and Plan: Continue pain mgmnt Continue ASA for dvt ppx Continue PT for right hip enrique Dispo planning-Pending PT eval, pain mgmnt, medicine and cardiology discussion of pacemaker and further treatment Fall Risk Details Current Medications: Current Medications Generic Name Dose Route Start Last Admin Trade Name Freq PRN Reason Stop Dose Admin Acetaminophen 650 mg 06/09/21 14:39 Acetaminophen Supp 650 Mg Supp.Rect [place] Q6H PRN Pain, Mild (Pain Scale 1-3) Aspirin 325 mg 06/11/21 22:00 06/12/21 09:22 Aspirin 325 Mg Tablet PO 325 mg BID JOMAR Administration Atropine Sulfate 0.5 mg 06/12/21 10:07 Atropine Sulfate 1 Mg/Ml Vial IVPUSH ONCE PRN HR <45 Docusate Sodium 100 mg 06/09/21 21:00 06/12/21 09:23 Docusate Sodium 100 Mg Capsule PO 100 mg BID JOMAR Administration Folic Acid 1 mg 06/11/21 09:00 06/12/21 09:23 Folic Acid 1 Mg Tablet PO 1 mg DAILY JOMAR Administration Piperacillin Sod/Tazobactam 50 mls @ 100 mls/hr 06/12/21 07:00 06/12/21 10:04 Sod 3.375 gm/ Sodium Chloride IV Infused Q6H JOMAR Infusion Levothyroxine Sodium 75 mcg 06/11/21 09:00 06/12/21 09:23 Levothyroxine Sodium 75 Mcg Tablet PO 75 mcg DAILY JOMAR Administration Morphine Sulfate 2 mg 06/09/21 14:39 06/09/21 15:00 Morphine Sulfate 2 Mg/Ml Cartridge IVPUSH 2 mg Q2H PRN Administration Pain, Severe (Pain Scale 7-10) Naloxone HCl 0.2 mg 06/09/21 14:39 Naloxone Hcl 0.4 Mg/Ml Vial IVPUSH Q2M PRN Excessive sedation or RR < 8 Nicotine 7 mg 06/12/21 09:00 06/12/21 09:23 Nicotine 7 Mg Patch.Td24 TRANSDERMA 7 mg DAILY JOMAR Administration Ondansetron HCl 4 mg 06/10/21 12:54 Ondansetron Hcl 4 Mg/2 Ml Vial IVPUSH Q8H PRN Nausea and Vomiting Oxycodone HCl 10 mg 06/09/21 16:00 06/12/21 05:23 Oxycodone Hcl Immed Release 5 Mg Tablet PO 10 mg Q6H JOMAR Administration Sodium Chloride 3 ml 06/09/21 16:00 06/12/21 09:23 0.9 % Sodium Chloride Flush 3 Ml Syringe IVFLUSH 3 ml QSHIFT JOMAR Administration Sodium Chloride 3 ml 06/10/21 16:00 06/12/21 09:23 0.9 % Sodium Chloride Flush 3 Ml Syringe IVFLUSH 3 ml QSHIFT JOMAR Administration Vitamin D 25 mcg 06/11/21 09:00 06/12/21 09:23 Cholecalciferol (Vitamin D3) 25 Mcg Tablet PO 25 mcg DAILY JOMAR Administration Time Spent With Patient Time: Total time spent is greater than 50% in coordination of care (as documented) at patient's floor/unit and/or counseling patient: Time with patient: less than 15 minutes Quality Stroke Does the patient have a stroke diagnosis?: No VTE Prior VTE?: No VTE Risk Level:: Medical - low VTE Device Contraindication: N/A - Device Ordered VTE Drug Contraindication: Treatment Not Indicated
--- NOTE | 2021-06-12 10:57 | P.PNCA_ITS ---
Subjective Subjective Date of Service: 06/12/21 Interval history: she has no symptoms from cardiac. Review of Systems Review of Systems Yes all other systems are reviewed and are negative Cardiovascular: Reports as per HPI, Reports no additional cardiovascular complaints, Denies acrocyanosis, Denies cool extremities, Denies painful fingertips, Denies chest pain, Denies chest pain at rest, Denies diaphoresis, Denies syncope, Denies irregular heart rhythm, Denies claudication, Denies leg edema, Denies lightheadedness, Denies palpitations and Denies dyspnea Respiratory: Denies dyspnea Denies syncope Endocrine: Denies palpitations Physical Exam Vital Signs: Last Vital Signs Temp 97.6 F 06/12/21 08:00 Pulse 72 06/12/21 08:00 Resp 18 06/12/21 08:00 BP 96/52 L 06/12/21 08:00 Pulse Ox 95 06/12/21 08:00 Body Mass Index 29.2 Const General: cooperative and no acute distress [facility] Other: Unremarkable Neck Neck: Yes normal visual inspection Chest Chest palpation & inspection: normal inspection of the chest Resp Auscultation: clear to auscultation bilaterally, no crackles and no wheezes Cardio Jugular venous distension: no JVD Palpation: normal PMI Heart sounds: S1 normal heart sound present, S2 normal heart sound present, no gallops, no murmurs and no rubs GI Palpation (GI): Soft to palpation Back/Spine/Pelvis Other: unremarkable Skin General skin exam: no rashes or lesions noted Neuro Cranial nerves: Yes Other cranial nerve findings present Extrem General: Yes no clubbing, cyanosis or edema Psych Mental Status: other Results Labs and Meds Result diagrams: 06/12/21 06:05 06/12/21 06:05 Lab results: Laboratory Results - last 24 hr 06/12/21 06/12/21 06/12/21 01:26 01:26 06:05 WBC 17.8 H 17.3 H RBC 3.36 L 3.48 L Hgb 9.9 L 10.1 L Hct 29.8 L 30.7 L MCV 88.7 88.2 MCH 29.5 29.0 MCHC 33.2 32.9 RDW 13.0 13.1 Plt Count 227 231 MPV 10.8 11.4 Immature Gran % (Auto) 1.3 H 1.0 H Neut % (Auto) 77.2 H 82.4 H Lymph % (Auto) 15.0 L 10.5 L [place] % (Auto) 6.2 5.6 Eos % (Auto) 0.1 0.2 Baso % (Auto) 0.2 0.3 Lymph # (Auto) 2.7 1.8 [place] # (Auto) 1.1 1.0 Eos # (Auto) 0.0 0.0 Baso # (Auto) 0.0 0.1 Abs Immat Gran (auto) 0.23 H 0.18 H Absolute Neuts (auto) 13.8 H 14.2 H Absolute Nucleated RBC 0.000 0.000 Nucleated RBC % (auto) 0.0 0.0 Sodium Potassium Chloride Carbon Dioxide Anion Gap BUN Creatinine Estim Creat Clear Calc Estimated GFR Random Glucose Lactic Acid 1.1 Calcium Urine Color Urine Appearance Urine pH Ur Specific [place] Urine Protein Urine Glucose (UA) Urine Ketones Urine Blood Urine Nitrite Ur Leukocyte Esterase Urine RBC Urine WBC Ur Squamous Epith Cells Talc Crystals Amorphous Sediment Urine Bacteria Urine Mucus 06/12/21 06/12/21 06:05 09:12 WBC RBC Hgb Hct MCV MCH MCHC RDW Plt Count MPV Immature Gran % (Auto) Neut % (Auto) Lymph % (Auto) [place] % (Auto) Eos % (Auto) Baso % (Auto) Lymph # (Auto) [place] # (Auto) Eos # (Auto) Baso # (Auto) Abs Immat Gran (auto) Absolute Neuts (auto) Absolute Nucleated RBC Nucleated RBC % (auto) Sodium 136 Potassium 3.5 Chloride 103 Carbon Dioxide 24 Anion Gap 13 BUN 9 Creatinine 0.59 Estim Creat Clear Calc 99.3 Estimated GFR > 60 Random Glucose 87 Lactic Acid Calcium 8.0 L D Urine Color YELLOW Urine Appearance CLEAR Urine pH 6.0 Ur Specific [place] 1.025 Urine Protein TRACE Urine Glucose (UA) NEG Urine Ketones NEG Urine Blood TRACE Urine Nitrite NEG Ur Leukocyte Esterase NEG Urine RBC 0-2 Urine WBC 0 Ur Squamous Epith Cells 3+ [place] Crystals TRACE Amorphous Sediment TRACE Urine Bacteria NONE Urine Mucus 2+ Imaging Radiologist's impression: Impressions Hip/Pelvis X-Ray 06/11/21 07:00 IMPRESSION: Satisfactory appearance of right hip hemiarthroplasty. Chest X-Ray 06/12/21 06:25 IMPRESSION: Left basilar atelectasis/infiltrate. Ill-defined opacities in the right midlung on previous study have resolved. Suspect mild pulmonary vascular congestion with underlying cardiomegaly.. Progress Note: A&P Assessment and plan (1) Sinus pause: Status: Acute (2) Status post hip hemiarthroplasty: Status: Acute Assessment and Plan: Recurrent pauses noted. Today am, even while awake it was upto 6.4sec. Other pauses noted including 4.5, 4.6, 5 seconds in am today. Had long conversation with . Now he states that he cannot clearly tell how patient fell as she did not witness it but just heard the sound of falling. Hence, cannot be sure if this was syncope vs mechanical. Due to recurrent pauses, may proceed with pacemaker placement. They agree. Discussed with . Fall Risk Details Current Medications: Current Medications Generic Name Dose Route Start Last Admin Trade Name Freq PRN Reason Stop Dose Admin Acetaminophen 650 mg 06/09/21 14:39 Acetaminophen Supp 650 Mg Supp.Rect [place] Q6H PRN Pain, Mild (Pain Scale 1-3) Aspirin 325 mg 06/11/21 22:00 06/12/21 09:22 Aspirin 325 Mg Tablet PO 325 mg BID JOMAR Administration Atropine Sulfate 0.5 mg 06/12/21 10:07 Atropine Sulfate 1 Mg/Ml Vial IVPUSH ONCE PRN HR <45 Docusate Sodium 100 mg 06/09/21 21:00 06/12/21 09:23 Docusate Sodium 100 Mg Capsule PO 100 mg BID JOMAR Administration Folic Acid 1 mg 06/11/21 09:00 06/12/21 09:23 Folic Acid 1 Mg Tablet PO 1 mg DAILY JOMAR Administration Piperacillin Sod/Tazobactam 50 mls @ 100 mls/hr 06/12/21 07:00 06/12/21 10:04 Sod 3.375 gm/ Sodium Chloride IV Infused Q6H JOMAR Infusion Levothyroxine Sodium 75 mcg 06/11/21 09:00 06/12/21 09:23 Levothyroxine Sodium 75 Mcg Tablet PO 75 mcg DAILY JOMAR Administration Morphine Sulfate 2 mg 06/09/21 14:39 06/09/21 15:00 Morphine Sulfate 2 Mg/Ml Cartridge IVPUSH 2 mg Q2H PRN Administration Pain, Severe (Pain Scale 7-10) Naloxone HCl 0.2 mg 06/09/21 14:39 Naloxone Hcl 0.4 Mg/Ml Vial IVPUSH Q2M PRN Excessive sedation or RR < 8 Nicotine 7 mg 06/12/21 09:00 06/12/21 09:23 Nicotine 7 Mg Patch.Td24 TRANSDERMA 7 mg DAILY JOMAR Administration Ondansetron HCl 4 mg 06/10/21 12:54 Ondansetron Hcl 4 Mg/2 Ml Vial IVPUSH Q8H PRN Nausea and Vomiting Oxycodone HCl 10 mg 06/09/21 16:00 06/12/21 05:23 Oxycodone Hcl Immed Release 5 Mg Tablet PO 10 mg Q6H JOMAR Administration Sodium Chloride 3 ml 06/09/21 16:00 06/12/21 09:23 0.9 % Sodium Chloride Flush 3 Ml Syringe IVFLUSH 3 ml QSHIFT JOMAR Administration Sodium Chloride 3 ml 06/10/21 16:00 06/12/21 09:23 0.9 % Sodium Chloride Flush 3 Ml Syringe IVFLUSH 3 ml QSHIFT JOMAR Administration Vitamin D 25 mcg 06/11/21 09:00 06/12/21 09:23 Cholecalciferol (Vitamin D3) 25 Mcg Tablet PO 25 mcg DAILY JOMAR Administration Time Spent With Patient Time: Total time spent is greater than 50% in coordination of care (as documented) at patient's floor/unit and/or counseling patient: Time with patient: 15 - 24 minutes Progress Note: Quality Stroke Does the patient have a stroke diagnosis?: No Procedures Date of Service Date of Service: 06/12/21
--- NOTE | 2021-06-12 11:18 | P.CONCC_ITS ---
History of Present Illness Data of Consult Service Date: 06/12/21 Requesting physician: Stuart Brown Primary Care Provider: Marry Campuzano MD [facility] Reason for consult: Syncope/neuro cardiogenic 56-year-old female with early dementia whose only medical background includes replaced hypothyroidism and a recent syncopal episode resulting in an open reduction and internal fixation of her hip 48 hours ago and she was noted in recovery to a had sinus arrest with a ventricular escape for after 6 seconds and she has had multiple episodes even in bed not requiring orthostatic positioning with symptoms of near syncope No known allergies and medications included Synthroid at 75 mcg and vitamin D3 25 mcg daily No cardiac history and no history of tick bites she is almost entirely indoors with no exposure no recent rashes Review of Systems Review of Systems: Yes all other systems are reviewed and are negative [facility] Past Medical History Medical History Balance disorder Dementia Hypothyroidism Lactose intolerance Left leg weakness Memory loss PTSD (post-traumatic stress disorder) Tobacco dependence Surgical History Surgical History No pertinent past surgical history Social History Social History Household Members: Spouse Housing: Apartment Alcohol intake: current Alcohol intake frequency: holidays/special occasions only Patient Tobacco Use Status: Current everyday Tobacco user Tobacco use type: Cigarette Cigarettes Per Day: 8 Use of substances other than those prescribed or required for medical reasons: No Currently Displaying Signs/Symptoms of Drug Intoxication Withdrawal: No Have you been hit, kicked, punched, or otherwise hurt by someone within the past year? If so, by whom?: No Do you feel safe in your current relationship?: No Is there a partner from a previous relationship who is making you feel unsafe now?: No Are you made to feel afraid or neglected: No Advance Directives: No Advance Directives Information Provided: No Advance Directives on File: No Do you have thoughts of harming others: None Do you have a plan to hurt others: No Plan Recently lost weight without trying: No How much weight loss: Not applicable Eating poorly because of decreased appetite: No Nutrition screen score: 0 Nutrition Risks: No Nutritional Risk Patient : No : No Poor oral hygiene: No service: No Current occupational status: disabled Meds Allergies Allergy/AdvReac Type Severity Reaction Status Date / Time No Known Allergies Allergy Verified 06/04/21 16:48 Active Medications: Current Medications Generic Name Dose Route Start Last Admin Trade Name Jenifer PRN Reason Stop Dose Admin Acetaminophen 650 mg 06/09/21 14:39 Acetaminophen Supp 650 Mg Supp.Rect IN Q6H PRN Pain, Mild (Pain Scale 1-3) Aspirin 325 mg 06/11/21 22:00 06/12/21 09:22 Aspirin 325 Mg Tablet PO 325 mg BID JOMAR Administration Atropine Sulfate 0.5 mg 06/12/21 10:07 Atropine Sulfate 1 Mg/Ml Vial IVPUSH ONCE PRN HR <45 Docusate Sodium 100 mg 06/09/21 21:00 06/12/21 09:23 Docusate Sodium 100 Mg Capsule PO 100 mg BID JOMAR Administration Folic Acid 1 mg 06/11/21 09:00 06/12/21 09:23 Folic Acid 1 Mg Tablet PO 1 mg DAILY JOMAR Administration Piperacillin Sod/Tazobactam 50 mls @ 100 mls/hr 06/12/21 07:00 06/12/21 10:04 Sod 3.375 gm/ Sodium Chloride IV Infused Q6H JOMAR Infusion Levothyroxine Sodium 75 mcg 06/11/21 09:00 06/12/21 09:23 Levothyroxine Sodium 75 Mcg Tablet PO 75 mcg DAILY JOMAR Administration Morphine Sulfate 2 mg 06/09/21 14:39 06/09/21 15:00 Morphine Sulfate 2 Mg/Ml Cartridge IVPUSH 2 mg Q2H PRN Administration Pain, Severe (Pain Scale 7-10) Naloxone HCl 0.2 mg 06/09/21 14:39 Naloxone Hcl 0.4 Mg/Ml Vial IVPUSH Q2M PRN Excessive sedation or RR < 8 Nicotine 7 mg 06/12/21 09:00 06/12/21 09:23 Nicotine 7 Mg Patch.Td24 TRANSDERMA 7 mg DAILY JOMAR Administration Ondansetron HCl 4 mg 06/10/21 12:54 Ondansetron Hcl 4 Mg/2 Ml Vial IVPUSH Q8H PRN Nausea and Vomiting Oxycodone HCl 10 mg 06/09/21 16:00 06/12/21 11:15 Oxycodone Hcl Immed Release 5 Mg Tablet PO 10 mg Q6H JOMAR Administration Sodium Chloride 3 ml 06/09/21 16:00 06/12/21 09:23 0.9 % Sodium Chloride Flush 3 Ml Syringe IVFLUSH 3 ml QSHIFT JOMAR Administration Sodium Chloride 3 ml 06/10/21 16:00 06/12/21 09:23 0.9 % Sodium Chloride Flush 3 Ml Syringe IVFLUSH 3 ml QSHIFT JOMAR Administration Vitamin D 25 mcg 06/11/21 09:00 06/12/21 09:23 Cholecalciferol (Vitamin D3) 25 Mcg Tablet PO 25 mcg DAILY JOMAR Administration Physical Exam Vital Signs: Vital Signs: Last Vital Signs Temp 98.9 F 06/12/21 11:15 Pulse 94 06/12/21 11:15 Resp 18 06/12/21 11:15 BP 95/50 L 06/12/21 11:15 Pulse Ox 97 06/12/21 11:15 Body Mass Index 29.2 She has and odd affect but does respond appropriately just an Arb blank stare Currently normal sinus rhythm no acute ST-T changes on EKG no conduction disease that is obvious Chest with diminished bilateral breath sounds but no adventitious sounds No neck vein distension and good bilateral carotid upstrokes no gallops or murmurs Skin with a incision over the right hip where was repaired some bilateral brui sing on the buttocks probably from her fall Results Labs CBC & Chem 7: 06/13/21 05:00 06/13/21 05:00 Labs: Short CBC 06/12/21 06/12/21 Range/Units 01:26 06:05 WBC 17.8 H 17.3 H (4.8-10.8) X10*3/uL Hgb 9.9 L 10.1 L (12.0-16.0) g/dl Hct 29.8 L 30.7 L (37-47) % Plt Count 227 231 (160-400) X10*3/uL BMP 06/12/21 06:05 Sodium 136 Potassium 3.5 Chloride 103 Carbon Dioxide 24 BUN 9 Creatinine 0.59 Calcium 8.0 L D Urine 06/12/21 Range/Units 09:12 Urine Color YELLOW Urine Appearance CLEAR Urine pH 6.0 (5.0-8.0) Ur Specific [place] 1.025 (1.005-1.025) Urine Protein TRACE (NEG-TRACE) MG/DL Urine Glucose (UA) NEG (NEG) MG/DL Assessment and Plan (1) Status post hip hemiarthroplasty: Status: Acute (2) Sinus arrest: Status: Acute (3) Displaced fracture of right femoral neck: Status: Acute (4) Closed hip fracture: Status: Acute (5) Urinary incontinence: Qualifiers: Urinary Incontinence type: unspecified incontinence Qualified Code(s): R32 - Unspecified urinary incontinence Status: Acute (6) Hypothyroidism: Status: Acute (7) Balance disorder: Status: Acute (8) Left leg weakness: Status: Acute (9) Dementia: Status: Acute (10) Increased urinary frequency: Status: Acute (11) Syncope: Status: Acute (12) Symptomatic bradycardia: Status: Acute 56-year-old female with repeated syncope with documented association of sinus arrest with prolonged recovery time between 5 and 7 seconds heralded by ventricular escape mechanism and plan is to proceed with insertion of dual- chamber pacemaker
--- NOTE | 2021-06-12 19:14 | PC.NURSE ---
Mobility Pt has been in the recliner since lastnight; was assisted there with PT and refused to return to the bed. Pt was assisted to the commode today and it took 2 individuals to assist her the commode. It was a strain as she did not bear weight on her left or right leg. Upon standing ,pt would stretch leg in front of her and has to be redirected to pull the leg in. pt does not help with her care and directs all her weight on those helping. per PT, they won't move her due the significant pauses that she has been having and may recommend home pt.
--- NOTE | 2021-06-12 19:36 | PC.NURSE ---
pt has temp of 101.2, notified. Tyelnol po ordered due to difficulty standing 2x max assist out of chair. will reassess shortly.
[2021-06-12] MEDS: Acetaminophen 325 MG TABLET 650 MG PO (20:20)
[2021-06-13] VITALS (14 sets, daily range): BP systolic 102–158; BP diastolic 56–96; PULSE 87–104; RESP 16–20; TEMP 36.1–37.1; O2SAT 90–97
[2021-06-13] MEDS: Piperacillin Sodium/Tazobactam 3.375 GM in 0.9 % Sodium Chloride 50 ML IV ×4 (01:30→18:46)
[2021-06-13] MEDS: 0.9 % Sodium Chloride Flush 3 ML SYRINGE IVFLUSH ×6 (01:30→20:08)
[2021-06-13 05:26] LABS: MANUAL DIFF FLAG NO
[2021-06-13 05:36] LABS: Basophils Absolute Auto 0.1 X10*3/uL (0.0-0.2); Basophils Percent Auto 0.4 % (0-2); Eosinophils Absolute Auto 0.1 X10*3/uL (0.0-0.4); Eosinophils Percent Auto 0.6 % (0-4); Hematocrit 29.7 % (37-47); Hemoglobin 9.7 g/dl (12.0-16.0); Imm Gran Abs Auto 0.13 X10*3/uL (0.00-0.03); Imm Gran Pct Auto 0.8 % (0.0-0.4); Lymphocytes Absolute Auto 1.9 X10*3/uL (1.2-4.9); Lymphocytes Percent Auto 11.7 % (20-40); Mean Corpuscular HGB Conc 32.7 g/dl (31.0-35.0); Mean Corpuscular Hemoglobin 28.9 pg (27.0-33.0); Mean Corpuscular Volume 88.4 fL (80-98); Mean Platelet Volume 10.8 fL (9.4-12.3); Monocytes Absolute Auto 0.8 X10*3/uL (0.1-1.2); Monocytes Percent Auto 4.8 % (2-11); Neutrophils Absolute Auto 13.5 X10*3/uL (2.0-8.3); Neutrophils Percent Auto 81.7 % (45-73); Platelet Count 262 X10*3/uL (160-400); Red Blood Count 3.36 X10*6/uL (4.20-5.50); White Blood Count 16.5 X10*3/uL (4.8-10.8)
[2021-06-13 06:07] LABS: Anion Gap 14 (12-20); Blood Urea Nitrogen 10 mg/dL (9-16); Calcium 8.3 mg/dL (8.4-10.2); Carbon Dioxide 24 mmol/L (22-29); Chloride 105 mmol/L (96-108); Creatinine Clr Calc Pharmacy 99.3; Estimated Glomerular Filt Rate > 60; Glucose Random 88 mg/dL (60-115); Potassium 3.3 mmol/L (3.3-5.1); Sodium 140 mmol/L (135-145)
--- NOTE | 2021-06-13 08:49 | P.CONAN_ITS ---
[facility] Active Problems Active Problems: All Active Problems (Updated 06/10/21 @ 15:24 by Bull Geller MD) Status post hip hemiarthroplasty (Acute) Sinus pause (Acute) Abnormal EKG (Acute) Displaced fracture of right femoral neck (Acute) Closed hip fracture (Acute) Urinary incontinence (Acute) Hypothyroidism (Acute) Balance disorder (Acute) Left leg weakness (Acute) Dementia (Acute) Abnormal urine odor (Acute) Increased urinary frequency (Acute) Past Medical History Medical History Balance disorder Dementia Hypothyroidism Lactose intolerance Left leg weakness Memory loss PTSD (post-traumatic stress disorder) Tobacco dependence Functional capacity: independent ambulation Patient : No Family History Family history of problems with anesthesia: No Surgical History Surgical History No pertinent past surgical history History of Problems with Anesthesia: No Social History Social History Household Members: Spouse Housing: Apartment Alcohol intake: current Alcohol intake frequency: holidays/special occasions only Patient Tobacco Use Status: Current everyday Tobacco user Tobacco use type: Cigarette Cigarettes Per Day: 8 Use of substances other than those prescribed or required for medical reasons: No Currently Displaying Signs/Symptoms of Drug Intoxication Withdrawal: No Have you been hit, kicked, punched, or otherwise hurt by someone within the past year? If so, by whom?: No Do you feel safe in your current relationship?: No Is there a partner from a previous relationship who is making you feel unsafe now?: No Are you made to feel afraid or neglected: No Advance Directives: No Advance Directives Information Provided: No Advance Directives on File: No Do you have thoughts of harming others: None Do you have a plan to hurt others: No Plan Recently lost weight without trying: No How much weight loss: Not applicable Eating poorly because of decreased appetite: No Nutrition screen score: 0 Nutrition Risks: No Nutritional Risk Patient : No : No Poor oral hygiene: No service: No Current occupational status: disabled Meds Allergies Allergy/AdvReac Type Severity Reaction Status Date / Time No Known Allergies Allergy Verified 06/04/21 16:48 Active Medications: Current Medications Generic Name Dose Route Start Last Admin Trade Name Freq PRN Reason Stop Dose Admin Acetaminophen 650 mg 06/09/21 14:39 Acetaminophen Supp 650 Mg Supp.Rect [place] Q6H PRN Pain, Mild (Pain Scale 1-3) Acetaminophen 650 mg 06/12/21 19:31 06/12/21 20:20 Acetaminophen 325 Mg Tablet PO 650 mg Q6H PRN Administration Fever Aspirin 325 mg 06/11/21 22:00 06/13/21 08:33 Aspirin 325 Mg Tablet PO Not Given BID COUNTS INCLUDE 234 BEDS AT THE [facility] Atropine Sulfate 0.5 mg 06/12/21 10:07 Atropine Sulfate 1 Mg/Ml Vial IVPUSH ONCE PRN HR <45 Docusate Sodium 100 mg 06/09/21 21:00 06/13/21 08:33 Docusate Sodium 100 Mg Capsule PO Not Given BID COUNTS INCLUDE 234 BEDS AT THE [facility] Folic Acid 1 mg 06/11/21 09:00 06/13/21 08:34 Folic Acid 1 Mg Tablet PO Not Given DAILY COUNTS INCLUDE 234 BEDS AT THE [facility] Piperacillin Sod/Tazobactam 50 mls @ 100 mls/hr 06/12/21 07:00 06/13/21 08:14 Sod 3.375 gm/ Sodium Chloride IV Infused Q6H COUNTS INCLUDE 234 BEDS AT THE [facility] Infusion Vancomycin HCl 1,000 mg/ 270 mls @ 270 mls/hr 06/13/21 09:00 Sodium Chloride IV 06/13/21 09:59 PREOP@0900 ONE Levothyroxine Sodium 75 mcg 06/11/21 09:00 06/13/21 08:34 Levothyroxine Sodium 75 Mcg Tablet PO Not Given DAILY COUNTS INCLUDE 234 BEDS AT THE [facility] Morphine Sulfate 2 mg 06/09/21 14:39 06/09/21 15:00 Morphine Sulfate 2 Mg/Ml Cartridge IVPUSH 2 mg Q2H PRN Administration Pain, Severe (Pain Scale 7-10) Naloxone HCl 0.2 mg 06/09/21 14:39 Naloxone Hcl 0.4 Mg/Ml Vial IVPUSH Q2M PRN Excessive sedation or RR < 8 Nicotine 7 mg 06/12/21 09:00 06/13/21 08:34 Nicotine 7 Mg Patch.Td24 TRANSDERMA Not Given DAILY COUNTS INCLUDE 234 BEDS AT THE [facility] Ondansetron HCl 4 mg 06/10/21 12:54 Ondansetron Hcl 4 Mg/2 Ml Vial IVPUSH Q8H PRN Nausea and Vomiting Oxycodone HCl 10 mg 06/09/21 16:00 06/13/21 03:58 Oxycodone Hcl Immed Release 5 Mg Tablet PO Not Given Q6H JOMAR Sodium Chloride 3 ml 06/09/21 16:00 06/13/21 08:12 0.9 % Sodium Chloride Flush 3 Ml Syringe IVFLUSH 3 ml QSHIFT JOMAR Administration Sodium Chloride 3 ml 06/10/21 16:00 06/13/21 07:52 0.9 % Sodium Chloride Flush 3 Ml Syringe IVFLUSH Not Given QSHIFT COUNTS INCLUDE 234 BEDS AT THE [facility] Vitamin D 25 mcg 06/11/21 09:00 06/13/21 08:33 Cholecalciferol (Vitamin D3) 25 Mcg Tablet PO Not Given DAILY COUNTS INCLUDE 234 BEDS AT THE [facility] Exam Exam Date and Time: June 13, 2021 0849 Height,Weight and Vital Signs: Height 5 ft 2 in Weight 72.6 kg Last Vital Signs Temp 98.6 F 06/13/21 07:19 Pulse 98 06/13/21 07:19 Resp 20 06/13/21 07:19 BP 127/78 06/13/21 07:19 Pulse Ox 96 06/13/21 07:19 Pertinent Lab Results Pertinent Lab Results: Laboratory Tests 06/09/21 06/09/21 06/09/21 14:46 14:50 14:50 WBC 22.0 H RBC 4.64 Hgb 13.4 Hct 41.1 MCV 88.6 MCH 28.9 MCHC 32.6 RDW 12.8 Plt Count 317 MPV 10.3 Immature Gran % (Auto) 0.6 H Neut % (Auto) 89.7 H Lymph % (Auto) 5.3 L [place] % (Auto) 4.0 Eos % (Auto) 0.1 Baso % (Auto) 0.3 Lymph # (Auto) 1.2 [place] # (Auto) 0.9 Eos # (Auto) 0.0 Baso # (Auto) 0.1 Abs Immat Gran (auto) 0.14 H Absolute Neuts (auto) 19.7 H Absolute Nucleated RBC 0.000 Nucleated RBC % (auto) 0.0 Sodium 140 Potassium 3.6 Chloride 106 Carbon Dioxide 23 Anion Gap 15 BUN 14 Creatinine 0.74 Estim Creat Clear Calc 84.0 Estimated GFR > 60 Random Glucose 128 H Lactic Acid Calcium 9.5 Magnesium Troponin I High Sens Free T4 TSH 3rd Generation Urine Color DARK YELLOW Urine Appearance HAZY Urine pH 5.5 Ur Specific [place] >= 1.030 H Urine Protein 1+ H Urine Glucose (UA) NEG Urine Ketones NEG Urine Blood NEG Urine Nitrite NEG Ur Leukocyte Esterase NEG Urine RBC 0-2 Urine WBC 1-4 Ur Squamous Epith Cells 1+ Calcium Oxalate Crystal TRACE Talc Crystals Amorphous Sediment Urine Bacteria TRACE Urine Mucus COVID-19 (BOB) COVID-19 [facility] Com Blood Type Antibody Screen 06/09/21 06/10/21 06/10/21 14:50 06:17 06:17 WBC 14.4 H RBC 4.42 Hgb 13.0 Hct 38.7 MCV 87.6 MCH 29.4 MCHC 33.6 RDW 12.6 Plt Count 294 MPV 10.5 Immature Gran % (Auto) 0.6 H Neut % (Auto) 81.2 H Lymph % (Auto) 12.0 L [place] % (Auto) 5.6 Eos % (Auto) 0.3 Baso % (Auto) 0.3 Lymph # (Auto) 1.7 [place] # (Auto) 0.8 Eos # (Auto) 0.1 Baso # (Auto) 0.0 Abs Immat Gran (auto) 0.09 H Absolute Neuts (auto) 11.7 H Absolute Nucleated RBC 0.000 Nucleated RBC % (auto) 0.0 Sodium 137 Potassium 3.6 Chloride 105 Carbon Dioxide 24 Anion Gap 12 BUN 10 Creatinine 0.66 Estim Creat Clear Calc 88.7 Estimated GFR > 60 Random Glucose 102 Lactic Acid Calcium 9.2 Magnesium Troponin I High Sens Free T4 TSH 3rd Generation Urine Color Urine Appearance Urine pH Ur Specific [place] Urine Protein Urine Glucose (UA) Urine Ketones Urine Blood Urine Nitrite Ur Leukocyte Esterase Urine RBC Urine WBC Ur Squamous Epith Cells Calcium Oxalate Crystal Talc Crystals Amorphous Sediment Urine Bacteria Urine Mucus COVID-19 (BOB) COVID-19 [facility] Com Blood Type O Positive Antibody Screen NEGATIVE 06/10/21 06/10/21 06/10/21 06:58 09:28 16:37 WBC RBC Hgb Hct MCV MCH MCHC RDW Plt Count MPV Immature Gran % (Auto) Neut % (Auto) Lymph % (Auto) [place] % (Auto) Eos % (Auto) Baso % (Auto) Lymph # (Auto) [place] # (Auto) Eos # (Auto) Baso # (Auto) Abs Immat Gran (auto) Absolute Neuts (auto) Absolute Nucleated RBC Nucleated RBC % (auto) Sodium Potassium Chloride Carbon Dioxide Anion Gap BUN Creatinine Estim Creat Clear Calc Estimated GFR Random Glucose Lactic Acid Calcium Magnesium Troponin I High Sens Free T4 1.21 TSH 3rd Generation 0.42 Urine Color Urine Appearance Urine pH Ur Specific [place] Urine Protein Urine Glucose (UA) Urine Ketones Urine Blood Urine Nitrite Ur Leukocyte Esterase Urine RBC Urine WBC Ur Squamous Epith Cells Calcium Oxalate Crystal Talc Crystals Amorphous Sediment Urine Bacteria Urine Mucus COVID-19 (BOB) Negative COVID-19 Clin Com See Note Blood Type O Positive Antibody Screen NEGATIVE 06/10/21 06/10/21 06/11/21 16:37 16:38 05:14 WBC 15.3 H RBC 3.73 L Hgb 10.7 L Hct 32.8 L MCV 87.9 MCH 28.7 MCHC 32.6 RDW 12.7 Plt Count 253 MPV 11.1 Immature Gran % (Auto) 0.8 H Neut % (Auto) 83.3 H Lymph % (Auto) 9.3 L [place] % (Auto) 6.3 Eos % (Auto) 0.1 Baso % (Auto) 0.2 Lymph # (Auto) 1.4 [place] # (Auto) 1.0 Eos # (Auto) 0.0 Baso # (Auto) 0.0 Abs Immat Gran (auto) 0.12 H Absolute Neuts (auto) 12.8 H Absolute Nucleated RBC 0.000 Nucleated RBC % (auto) 0.0 Sodium 139 Potassium 3.7 Chloride 106 Carbon Dioxide 23 Anion Gap 14 BUN 7 L Creatinine 0.71 Estim Creat Clear Calc 82.5 Estimated GFR > 60 Random Glucose 140 H D Lactic Acid Calcium 9.0 Magnesium 1.7 Troponin I High Sens 4.5 Free T4 TSH 3rd Generation Urine Color Urine Appearance Urine pH Ur Specific [place] Urine Protein Urine Glucose (UA) Urine Ketones Urine Blood Urine Nitrite Ur Leukocyte Esterase Urine RBC Urine WBC Ur Squamous Epith Cells Calcium Oxalate Crystal Talc Crystals Amorphous Sediment Urine Bacteria Urine Mucus COVID-19 (BOB) COVID-19 Clin Com Blood Type Antibody Screen 06/11/21 06/12/21 06/12/21 05:14 01:26 01:26 WBC 17.8 H RBC 3.36 L Hgb 9.9 L Hct 29.8 L MCV 88.7 MCH 29.5 MCHC 33.2 RDW 13.0 Plt Count 227 MPV 10.8 Immature Gran % (Auto) 1.3 H Neut % (Auto) 77.2 H Lymph % (Auto) 15.0 L [place] % (Auto) 6.2 Eos % (Auto) 0.1 Baso % (Auto) 0.2 Lymph # (Auto) 2.7 [place] # (Auto) 1.1 Eos # (Auto) 0.0 Baso # (Auto) 0.0 Abs Immat Gran (auto) 0.23 H Absolute Neuts (auto) 13.8 H Absolute Nucleated RBC 0.000 Nucleated RBC % (auto) 0.0 Sodium 138 Potassium 3.5 Chloride 105 Carbon Dioxide 26 Anion Gap 11 L BUN 8 L Creatinine 0.62 Estim Creat Clear Calc 94.5 Estimated GFR > 60 Random Glucose 91 Lactic Acid 1.1 Calcium 8.7 Magnesium Troponin I High Sens Free T4 TSH 3rd Generation Urine Color Urine Appearance Urine pH Ur Specific [place] Urine Protein Urine Glucose (UA) Urine Ketones Urine Blood Urine Nitrite Ur Leukocyte Esterase Urine RBC Urine WBC Ur Squamous Epith Cells Calcium Oxalate Crystal Talc Crystals Amorphous Sediment Urine Bacteria Urine Mucus COVID-19 (BOB) COVID-19 Clin Com Blood Type Antibody Screen 06/12/21 06/12/21 06/12/21 06:05 06:05 09:12 WBC 17.3 H RBC 3.48 L Hgb 10.1 L Hct 30.7 L MCV 88.2 MCH 29.0 MCHC 32.9 RDW 13.1 Plt Count 231 MPV 11.4 Immature Gran % (Auto) 1.0 H Neut % (Auto) 82.4 H Lymph % (Auto) 10.5 L [place] % (Auto) 5.6 Eos % (Auto) 0.2 Baso % (Auto) 0.3 Lymph # (Auto) 1.8 [place] # (Auto) 1.0 Eos # (Auto) 0.0 Baso # (Auto) 0.1 Abs Immat Gran (auto) 0.18 H Absolute Neuts (auto) 14.2 H Absolute Nucleated RBC 0.000 Nucleated RBC % (auto) 0.0 Sodium 136 Potassium 3.5 Chloride 103 Carbon Dioxide 24 Anion Gap 13 BUN 9 Creatinine 0.59 Estim Creat Clear Calc 99.3 Estimated GFR > 60 Random Glucose 87 Lactic Acid Calcium 8.0 L D Magnesium Troponin I High Sens Free T4 TSH 3rd Generation Urine Color YELLOW Urine Appearance CLEAR Urine pH 6.0 Ur Specific [place] 1.025 Urine Protein TRACE Urine Glucose (UA) NEG Urine Ketones NEG Urine Blood TRACE Urine Nitrite NEG Ur Leukocyte Esterase NEG Urine RBC 0-2 Urine WBC 0 Ur Squamous Epith Cells 3+ Calcium Oxalate Crystal Talc Crystals TRACE Amorphous Sediment TRACE Urine Bacteria NONE Urine Mucus 2+ COVID-19 (BOB) COVID-19 Clin Com Blood Type Antibody Screen 06/13/21 06/13/21 05:00 05:00 WBC 16.5 H RBC 3.36 L Hgb 9.7 L Hct 29.7 L MCV 88.4 MCH 28.9 MCHC 32.7 RDW 13.0 Plt Count 262 MPV 10.8 Immature Gran % (Auto) 0.8 H Neut % (Auto) 81.7 H Lymph % (Auto) 11.7 L [place] % (Auto) 4.8 Eos % (Auto) 0.6 Baso % (Auto) 0.4 Lymph # (Auto) 1.9 [place] # (Auto) 0.8 Eos # (Auto) 0.1 Baso # (Auto) 0.1 Abs Immat Gran (auto) 0.13 H Absolute Neuts (auto) 13.5 H Absolute Nucleated RBC 0.000 Nucleated RBC % (auto) 0.0 Sodium 140 Potassium 3.3 Chloride 105 Carbon Dioxide 24 Anion Gap 14 BUN 10 Creatinine 0.59 Estim Creat Clear Calc 99.3 Estimated GFR > 60 Random Glucose 88 Lactic Acid Calcium 8.3 L Magnesium Troponin I High Sens Free T4 TSH 3rd Generation Urine Color Urine Appearance Urine pH Ur Specific [place] Urine Protein Urine Glucose (UA) Urine Ketones Urine Blood Urine Nitrite Ur Leukocyte Esterase Urine RBC Urine WBC Ur Squamous Epith Cells Calcium Oxalate Crystal Talc Crystals Amorphous Sediment Urine Bacteria Urine Mucus COVID-19 (BOB) COVID-19 Clin Com Blood Type Antibody Screen Airway Mallampati Class: III TM Dist: >3cm Neck ROM: Full Loose/Missing/Broken Teeth: Yes Heart: RRR Lungs: CTA Assessment and Plan Assessment Anesthesia Assessment: Anesthesia Plan Discussed and Chart Reviewed Final Anesthetic Review Family History of Problems with Anesthesia: No History of Problems with Anesthesia: No NPO: Yes ASA Class: III Final Preanesthetic Review: No Changes in Pt Med Stat, Meds/Allgs Chart Reviewed, Consent Obtained/Reviewed and Anes Risks/Benef Reviewed Patient Risk: Intermediate Procedure Risk: Low Anesthetic Plan Anesthetic Plan: MAC: Disposition: Standard PACU
--- NOTE | 2021-06-13 10:47 | P.PNIM_ITS ---
Subjective Subjective Date of Service: 06/13/21 Interval History: seen and examined this morning no complaints, no overnight events plan for pacemaker this morning Review of Systems Review of Systems: Yes all other systems are reviewed and are negative Constitutional Constitutional: Denies chills and Denies fever(s) Cardiovascular Cardiovascular: Denies chest pain Respiratory Respiratory: Denies cough Gastrointestinal Gastrointestinal: Denies abdominal pain Physical Exam Vital Signs: Vital Signs: Last Vital Signs Temp 98.6 F 06/13/21 07:19 Pulse 98 06/13/21 07:19 Resp 20 06/13/21 07:19 BP 127/78 06/13/21 07:19 Pulse Ox 96 06/13/21 07:19 Body Mass Index 29.2 Const: General: comfortable, no acute distress, alert and awake Nutritional Appearance: well nourished HENMT: Head: Yes normocephalic and Yes atraumatic Eyes: Sclerae: sclerae normal Chest: Chest palpation & inspection: normal inspection of the chest Resp: Effort & Inspection: normal respiratory effort and no respiratory distress Cardio: Rate: regular rate Rhythm: regular rhythm GI: Palpation (GI): Soft to palpation and nontender Neuro: Cranial nerves: Yes CN's II-XII intact bilaterally and Yes Bilaterally intact EOM present Extrem: Other: right hip bandage c/d/i Objective Data Current Medications Generic Name Dose Route Start Last Admin Trade Name Freq PRN Reason Stop Dose Admin Acetaminophen 650 mg 06/09/21 14:39 Acetaminophen Supp 650 Mg Supp.Rect NM Q6H PRN Pain, Mild (Pain Scale 1-3) Acetaminophen 650 mg 06/12/21 19:31 06/12/21 20:20 Acetaminophen 325 Mg Tablet PO 650 mg Q6H PRN Administration Fever Aspirin 325 mg 06/11/21 22:00 06/13/21 08:33 Aspirin 325 Mg Tablet PO Not Given BID JOMAR Atropine Sulfate 0.5 mg 06/12/21 10:07 Atropine Sulfate 1 Mg/Ml Vial IVPUSH ONCE PRN HR <45 Docusate Sodium 100 mg 06/09/21 21:00 06/13/21 08:33 Docusate Sodium 100 Mg Capsule PO Not Given BID JOMAR Folic Acid 1 mg 06/11/21 09:00 06/13/21 08:34 Folic Acid 1 Mg Tablet PO Not Given DAILY JOMAR Piperacillin Sod/Tazobactam 50 mls @ 100 mls/hr 06/12/21 07:00 06/13/21 08:14 Sod 3.375 gm/ Sodium Chloride IV Infused Q6H [facility] Infusion Levothyroxine Sodium 75 mcg 06/11/21 09:00 06/13/21 08:34 Levothyroxine Sodium 75 Mcg Tablet PO Not Given DAILY [facility] Morphine Sulfate 2 mg 06/09/21 14:39 06/09/21 15:00 Morphine Sulfate 2 Mg/Ml Cartridge IVPUSH 2 mg Q2H PRN Administration Pain, Severe (Pain Scale 7-10) Naloxone HCl 0.2 mg 06/09/21 14:39 Naloxone Hcl 0.4 Mg/Ml Vial IVPUSH Q2M PRN Excessive sedation or RR < 8 Nicotine 7 mg 06/12/21 09:00 06/13/21 08:34 Nicotine 7 Mg Patch.Td24 TRANSDERMA Not Given DAILY [facility] Nicotine Polacrilex 2 mg 06/13/21 09:52 Nicotine Polacrilex 2 Mg Gum BUCCAL Q2H PRN Nicotine Cravings Ondansetron HCl 4 mg 06/10/21 12:54 Ondansetron Hcl 4 Mg/2 Ml Vial IVPUSH Q8H PRN Nausea and Vomiting Oxycodone HCl 10 mg 06/09/21 16:00 06/13/21 03:58 Oxycodone Hcl Immed Release 5 Mg Tablet PO Not Given Q6H [facility] Sodium Chloride 3 ml 06/09/21 16:00 06/13/21 08:12 0.9 % Sodium Chloride Flush 3 Ml Syringe IVFLUSH 3 ml QSWYFT [facility] Administration Sodium Chloride 3 ml 06/10/21 16:00 06/13/21 07:52 0.9 % Sodium Chloride Flush 3 Ml Syringe IVFLUSH Not Given QSHIFT [facility] Vitamin D 25 mcg 06/11/21 09:00 06/13/21 08:33 Cholecalciferol (Vitamin D3) 25 Mcg Tablet PO Not Given DAILY [facility] Labs CBC & Chem 7: 06/13/21 05:00 06/13/21 05:00 Labs: Laboratory Results - last 24 hr 06/13/21 06/13/21 05:00 05:00 MCV 88.4 MCH 28.9 MCHC 32.7 RDW 13.0 Plt Count 262 MPV 10.8 Immature Gran % (Auto) 0.8 H Neut % (Auto) 81.7 H Lymph % (Auto) 11.7 L [place] % (Auto) 4.8 Eos % (Auto) 0.6 Baso % (Auto) 0.4 Lymph # (Auto) 1.9 [place] # (Auto) 0.8 Eos # (Auto) 0.1 Baso # (Auto) 0.1 Abs Immat Gran (auto) 0.13 H Absolute Neuts (auto) 13.5 H Absolute Nucleated RBC 0.000 Nucleated RBC % (auto) 0.0 Anion Gap 14 Estim Creat Clear Calc 99.3 Estimated GFR > 60 Random Glucose 88 Calcium 8.3 L Microbiology Microbiology Results: Microbiology 06/12/21 01:25 Blood Culture - Preliminary Blood - Venous No growth after 24 hours. 06/12/21 01:25 Blood Culture - Preliminary Blood - Venous No growth after 24 hours. Assessment and Plan (1) Sinus pause: Status: Acute (2) Hypothyroidism: Status: Acute Assessment and Plan: This is a 56 yo F with a PMH of dementia (per documentation, cause unknown), hypothyroidism who presented to the hospital after a mechanical fall resulting in a subcap. R fem fracture. She underwent operative repair 06/10 and post op in the PACU was noted to have several sinus pauses, longest one appearing to be about 5.9s. Sinus pauses Electrolytes ok. TSH within normal limits. Troponin negative Echo done, no wall motion abnormalities plan for pacemaker today Sepsis leukocytosis trending down lactic acid wnl cxr showing new left infiltrate; UA negative BP soft, received 30cc/kg bolus sepsis focused exam completed. -continue antibiotics -follow blood cultures Normocytic anemia H/H stable follow cbc Hypothyroidism synthroid Pulmonary nodules Possible nodule seen on chest x-ray. resolved on repeat cxr Hip fx POD 3 s/p right hemiarthroplasty 06/10 mgmt per ortho tobacco dependence -NRT -smoking cessation advised dvt ppx - per ortho Attending-Dr. Lange Quality Stroke Does the patient have a stroke diagnosis?: No VTE Prior VTE?: No VTE Risk Level:: Medical - low VTE Device Contraindication: N/A - Device Ordered VTE Drug Contraindication: Treatment Not Indicated
[2021-06-13] MEDS: Acetaminophen 325 MG TABLET 650 MG PO (12:30)
--- NOTE | 2021-06-13 12:35 | P.OP_ITS ---
Operative Note Operative Note Date of Service: 06/13/21 Narrative: Dr. santos dictating the insertion of a dual-chamber permanent pacemaker Biotronik device Indication sinus arrest with multiple syncopal episodes very prolonged recovery time exceeding 5-7 seconds After sterile preparation and draping in the usual fashion and under fluoroscopic guidance dual-chamber pacemaker inserted without complication 1st performed a left subclavian venogram without complication with 15 cc of contrast highlighting the subclavian venous system and then made a careful incision and dissection down to the prepectoral fascia securing all bleeders and partially created the pocket along the plane of the prepectoral fascia and then i.e. gained separate entry x2 into the subclavian venous system passing retrograde with Seldinger technique 2 J-tip guidewires to the right atrium and I did on an occasion get back air into the syringe but the oxygen saturations in a remained between 98 and 100% no symptom no issue nothing fluoroscopically and no evidence of pneumothorax on the postoperative chest x-r ay I did utilizing 6 Swedish introducers I 1st passed an active fixation right ventricular lead to the right ventricular apex with the screw was then deployed producing good injury current good sensing of the right ventricle at 6.1 mV stable impedance of 799 Ohms no diaphragm capture at 10 volts and capture threshold was 0.9 volts over 60.4 millisecond so that lead was sewn and tethered to the pectoral muscle in the floor of the pocket I then passed retrograde with Seldinger technique a active fixation right atrial lead to the right atrial appendage with a screw was deployed with excellent inju ry current stable impedance 487 Ohms no diaphragm capture at 10 volts sensing between 1.5 and 2 mV capture threshold 0.7 volts at 0.4 milliseconds and that lead was sewn and tethered to the pectoral muscle in the floor of the pocket and I then expanded the floor of the pocket along the plane of the prepectoral fascia without complication without bleeding and then placed both the leads into the generator again with stable impedance and lead and generator were then placed in the pocket and the wound was closed in 3 layers sterilely dressed and postoperative chest x-ray lead position was stable and no evidence of pneumothorax patient was stable postoperatively and she will return to her own bed and I will watch with serial chest x-rays over the next 24 hours
[2021-06-13] MEDS: oxyCODONE HCl Immed Release 5 MG TABLET 10 MG PO ×2 (15:21→20:07)
[2021-06-13] MEDS: Docusate Sodium 100 MG CAPSULE PO (20:07)
[2021-06-13] MEDS: Aspirin 325 MG TABLET PO (20:07)
[2021-06-14] VITALS (8 sets, daily range): BP systolic 100–131; BP diastolic 57–66; PULSE 80–89; RESP 18–20; TEMP 35.9–37; O2SAT 95–98
[2021-06-14] MEDS: Piperacillin Sodium/Tazobactam 3.375 GM in 0.9 % Sodium Chloride 50 ML IV ×4 (00:20→20:08)
[2021-06-14 06:36] LABS: MANUAL DIFF FLAG NO
[2021-06-14 06:42] LABS: Basophils Percent Auto 0.2 % (0-2); Eosinophils Absolute Auto 0.2 X10*3/uL (0.0-0.4); Hematocrit 30.3 % (37-47); Imm Gran Abs Auto 0.12 X10*3/uL (0.00-0.03); Imm Gran Pct Auto 0.8 % (0.0-0.4); Lymphocytes Percent Auto 13.6 % (20-40); Mean Corpuscular Hemoglobin 29.2 pg (27.0-33.0); Mean Corpuscular Volume 88.3 fL (80-98); Mean Platelet Volume 10.7 fL (9.4-12.3); Monocytes Absolute Auto 0.8 X10*3/uL (0.1-1.2); Monocytes Percent Auto 5.3 % (2-11); Neutrophils Absolute Auto 11.6 X10*3/uL (2.0-8.3); Neutrophils Percent Auto 79.1 % (45-73); Platelet Count 306 X10*3/uL (160-400); Red Blood Count 3.43 X10*6/uL (4.20-5.50); Red Cell Distribution Width 12.9 % (11.0-16.0); White Blood Count 14.7 X10*3/uL (4.8-10.8)
[2021-06-14 07:16] LABS: Anion Gap 13 (12-20); Blood Urea Nitrogen 7 mg/dL (9-16); Calcium 8.3 mg/dL (8.4-10.2); Carbon Dioxide 28 mmol/L (22-29); Chloride 102 mmol/L (96-108); Estimated Glomerular Filt Rate > 60; Glucose Random 91 mg/dL (60-115); Potassium 3.4 mmol/L (3.3-5.1); Sodium 140 mmol/L (135-145)
[2021-06-14] MEDS: Levothyroxine Sodium 75 MCG TABLET PO (08:10)
[2021-06-14] MEDS: oxyCODONE HCl Immed Release 5 MG TABLET 10 MG PO (08:10)
[2021-06-14] MEDS: Folic Acid 1 MG TABLET PO (08:10)
[2021-06-14] MEDS: Docusate Sodium 100 MG CAPSULE PO ×2 (08:11→20:08)
[2021-06-14] MEDS: Aspirin 325 MG TABLET PO ×2 (08:11→20:08)
[2021-06-14] MEDS: Nicotine 7 MG PATCH.TD24 TRANSDERMA (08:11)
[2021-06-14] MEDS: Cholecalciferol (Vitamin D3) 25 MCG TABLET PO (08:11)
[2021-06-14] MEDS: 0.9 % Sodium Chloride Flush 3 ML SYRINGE IVFLUSH ×2 (08:11→20:09)
--- NOTE | 2021-06-14 09:13 | HO.PM.IMPN ---
Subjective Subjective Date of Service: 06/14/21 Interval History: seen and examined this AM bedside patient herself endorses no complaints denies cough or sob. denies dizziness Review of Systems General - no fevers or chills Cardiovascular - no chest pain Respiratory - no shortness of breath or cough Abdominal- no abdominal pain, nausea, vomiting, diarrhea Physical Exam Vital Signs: Vital Signs: Last Vital Signs Temp 97 F 06/14/21 07:12 Pulse 86 06/14/21 07:12 Resp 20 06/14/21 07:12 BP 125/63 06/14/21 07:12 Pulse Ox 96 06/14/21 07:12 Body Mass Index 29.2 Const: Other: oriented to self , aware that she is in the hospital she thinks she is in [facility]. Not oriented to date General: cooperative, comfortable, no acute distress, alert and awake Nutritional Appearance: well nourished HENMT: Head: Yes normocephalic and Yes atraumatic Eyes: General: appearance normal, both eyes and all related structures Sclerae: sclerae normal Chest: Chest palpation & inspection: normal inspection of the chest Resp: Effort & Inspection: normal respiratory effort, able to speak in complete sentences and no respiratory distress Auscultation: clear to auscultation bilaterally Cardio: Rate: regular rate Rhythm: regular rhythm GI: Palpation (GI): Soft to palpation and nontender Auscultation: normal bowel sounds Skin: General skin exam: no rashes or lesions noted Neuro: Cranial nerves: Yes CN's II-XII intact bilaterally and Yes Bilaterally intact EOM present Cognition (Neuro): normal cognition Extrem: Other: right hip bandage c/d/i General: Yes no pedal edema Objective Data Current Medications Generic Name Dose Route Start Last Admin Trade Name Freq PRN Reason Stop Dose Admin Acetaminophen 650 mg 06/09/21 14:39 Acetaminophen Supp [address] Q6H PRN Pain, Mild (Pain Scale 1-3) Acetaminophen 650 mg 06/12/21 19:31 06/13/21 12:30 Acetaminophen 325 Mg Tablet PO 650 mg Q6H PRN Administration Fever Aspirin 325 mg 06/11/21 22:00 06/14/21 08:11 Aspirin 325 Mg Tablet PO 325 mg BID JOMAR Administration Atropine Sulfate 0.5 mg 06/12/21 10:07 Atropine Sulfate 1 Mg/Ml Vial IVPUSH ONCE PRN HR <45 Docusate Sodium 100 mg 06/09/21 21:00 06/14/21 08:11 Docusate Sodium 100 Mg Capsule PO 100 mg BID JOMAR Administration Folic Acid 1 mg 06/11/21 09:00 06/14/21 08:10 Folic Acid 1 Mg Tablet PO 1 mg DAILY JOMAR Administration Piperacillin Sod/Tazobactam 50 mls @ 100 mls/hr 06/12/21 07:00 06/14/21 06:37 Sod 3.375 gm/ Sodium Chloride IV Infused Q6H JOMAR Infusion Levothyroxine Sodium 75 mcg 06/11/21 09:00 06/14/21 08:10 Levothyroxine Sodium 75 Mcg Tablet PO 75 mcg DAILY JOMAR Administration Morphine Sulfate 2 mg 06/09/21 14:39 06/09/21 15:00 Morphine Sulfate 2 Mg/Ml Cartridge IVPUSH 2 mg Q2H PRN Administration Pain, Severe (Pain Scale 7-10) Naloxone HCl 0.2 mg 06/09/21 14:39 Naloxone Hcl 0.4 Mg/Ml Vial IVPUSH Q2M PRN Excessive sedation or RR < 8 Nicotine 7 mg 06/12/21 09:00 06/14/21 08:11 Nicotine 7 Mg Patch.Td24 TRANSDERMA 7 mg DAILY JOMAR Administration Nicotine Polacrilex 2 mg 06/13/21 09:52 Nicotine Polacrilex 2 Mg Gum BUCCAL Q2H PRN Nicotine Cravings Ondansetron HCl 4 mg 06/10/21 12:54 Ondansetron Hcl 4 Mg/2 Ml Vial IVPUSH Q8H PRN Nausea and Vomiting Oxycodone HCl 10 mg 06/09/21 16:00 06/14/21 08:10 Oxycodone Hcl Immed Release 5 Mg Tablet PO 10 mg Q6H JOMAR Administration Sodium Chloride 3 ml 06/09/21 16:00 06/14/21 08:11 0.9 % Sodium Chloride Flush 3 Ml Syringe IVFLUSH 3 ml QSHIFT JOMAR Administration Sodium Chloride 3 ml 06/10/21 16:00 06/14/21 09:08 0.9 % Sodium Chloride Flush 3 Ml Syringe IVFLUSH Not Given QSHIFT JOMAR Vitamin D 25 mcg 06/11/21 09:00 06/14/21 08:11 Cholecalciferol (Vitamin D3) 25 Mcg Tablet PO 25 mcg DAILY JOMAR Administration Labs CBC & Chem 7: 06/14/21 05:49 06/14/21 05:49 Labs: Laboratory Results - last 24 hr 06/14/21 06/14/21 05:49 05:49 MCV 88.3 MCH 29.2 MCHC 33.0 RDW 12.9 Plt Count 306 MPV 10.7 Immature Gran % (Auto) 0.8 H Neut % (Auto) 79.1 H Lymph % (Auto) 13.[address] [place] % (Auto) 5.3 Eos % (Auto) 1.0 Baso % (Auto) 0.2 Lymph # (Auto) 2.0 [place] # (Auto) 0.8 Eos # (Auto) 0.2 Baso # (Auto) 0.0 Abs Immat Gran (auto) 0.12 H Absolute Neuts (auto) 11.6 H Absolute Nucleated RBC 0.000 Nucleated RBC % (auto) 0.0 Anion Gap 13 Estim Creat Clear Calc 101.0 Estimated GFR > 60 Random Glucose 91 Calcium 8.3 L Microbiology Microbiology Results: Microbiology 06/12/21 01:25 Blood Culture - Preliminary Blood - Venous No growth after 48 hours. 06/12/21 01:25 Blood Culture - Preliminary Blood - Venous No growth after 48 hours. 06/12/21 20:02 Blood Culture - Preliminary Blood - Venous No growth after 24 hours. 06/12/21 20:02 Blood Culture - Preliminary Blood - Venous No growth after 24 hours. Assessment and Plan (1) Symptomatic bradycardia: Status: Acute Assessment and Plan: This is a 56 yo F with a PMH of dementia (per documentation, cause unknown), hypothyroidism who presented to the hospital after a mechanical fall resulting in a subcap. R fem fracture. She underwent operative repair 06/10 and post op in the PACU was noted to have several sinus pauses, longest one appearing to be about 5.9s. Sinus pauses, multiple s/p dual chamber PPM 06/13 Echo done, no wall motion abnormalities cardiology on the case PPM interrogation today ?? Sepsis secondary to possible pneumonia CXR improving IV zosyn day #2, blood cx negative thus far plan for augmentin upon discharge - total 7 days antibiotics Normocytic anemia H/H stable follow cbc Hypothyroidism synthroid Pulmonary nodules Possible nodule seen on chest x-ray. resolved on repeat cxr Hip fx s/p right hemiarthroplasty 06/10 mgmt per ortho tobacco dependence -NRT -smoking cessation advised Full Code DVT pptx - on high dose aspirin BID Dispo: STR. March d/c to STR once pacemaker interrogated and no issues reported. If discharged today -- would give 5 more days of Augmentin 875 BID Quality Stroke Does the patient have a stroke diagnosis?: No VTE Prior VTE?: No VTE Risk Level:: Medical - low VTE Device Contraindication: N/A - Device Ordered VTE Drug Contraindication: Treatment Not Indicated
--- NOTE | 2021-06-14 10:52 | P.PNCA_ITS ---
Subjective Subjective Date of Service: 06/14/21 <ABDULLAHI Doss - Last Filed: 06/14/21 11:07> 06/14/21 <Selvin Lou MD - Last Filed: 06/14/21 14:49> Principal diagnosis: Fall, femoral neck fx, Sinus pauses, s/p dual chamber PPM <ABDULLAHI Doss - Last Filed: 06/14/21 11:07> Interval history: Cardiology follow up for sinus pauses/ pacemaker. Seen at 1000. Today she is observed sitting up in chair. PT working with her. Not conversing but does follow commands. No acute distess noted. present. <CHUCK Doss - Last Filed: 06/14/21 11:07> Review of Systems Review of Systems Limited by dementia <ABDULLAHI Doss - Last Filed: 06/14/21 11:07> Yes Unobtainable due to mental condition <ABDULLAHI Doss - Last Filed: 06/14/21 11:07> Physical Exam Vital Signs: Last Vital Signs Temp 97 F 06/14/21 07:12 Pulse 86 06/14/21 10:41 Resp 20 06/14/21 07:12 BP 125/63 06/14/21 10:41 Pulse Ox 96 06/14/21 10:41 Body Mass Index 29.2 <ABDULLAHI Doss - Last Filed: 06/14/21 11:07> Const General: cooperative, no acute distress, alert and awake <ABDULLAHI Doss - Last Filed: 06/14/21 11:07> Neck Neck: Yes normal visual inspection and Yes no JVD <ABDULLAHI Doss - Last Filed: 06/14/21 11:07> Resp Effort & Inspection: normal respiratory effort, able to speak in complete sentences and not la bored <ABDULLAHI Doss Last Filed: 06/14/21 11:07> Auscultation: clear to auscultation bilaterally, no crackles, no rales, no rhonchi and no wheezes <ABDULLAHI Doss - Last Filed: 06/14/21 11:07> Cardio Palpation: normal PMI <ABDULLAHI Doss - Last Filed: 06/14/21 11:07> Rate: regular rate <ABDULLAHI Doss - Last Filed: 06/14/21 11:07> Rhythm: regular rhythm <ABDULLAHI Doss - Last Filed: 06/14/21 11:07> Heart sounds: S1 normal heart sound present and S2 normal heart sound present <ABDULLAHI Doss - Last Filed: 06/14/21 11:07> Peripheral pulses: Peripheral pulses 2+ throughout <ABDULLAHI Doss - Last Filed: 06/14/21 11:07> GI Inspection: Yes normal to inspection <ABDULLAHI Doss - Last Filed: 06/14/21 11:07> Extrem General: Yes normal to inspection and No edema <ABDULLAHI Doss - Last Filed: 06/14/21 11:07> Results Labs and Meds Result diagrams: : 06/14/21 05:49 06/14/21 05:49 <ABDULLAHI Doss - Last Filed: 06/14/21 11:07> Lab results: Laboratory Results - last 24 hr 06/14/21 06/14/21 05:49 05:49 WBC 14.7 H RBC 3.43 L Hgb 10.0 L Hct 30.3 L MCV 88.3 MCH 29.2 MCHC 33.0 RDW 12.9 Plt Count 306 MPV 10.7 Immature Gran % (Auto) 0.8 H Neut % (Auto) 79.1 H Lymph % (Auto) 13.6 L [place] % (Auto) 5.3 Eos % (Auto) 1.0 Baso % (Auto) 0.2 Lymph # (Auto) 2.0 [place] # (Auto) 0.8 Eos # (Auto) 0.2 Baso # (Auto) 0.0 Abs Immat Gran (auto) 0.12 H Absolute Neuts (auto) 11.6 H Absolute Nucleated RBC 0.000 Nucleated RBC % (auto) 0.0 Sodium 140 Potassium 3.4 Chloride 102 Carbon Dioxide 28 Anion Gap 13 BUN 7 L Creatinine 0.58 Estim Creat Clear Calc 101.0 Estimated GFR > 60 Random Glucose 91 Calcium 8.3 L <ABDULLAHI Doss - Last Filed: 06/14/21 11:07> Imaging Radiologist's impression: Impressions Guidance Fluoroscopy 06/13/21 08:40 FINDINGS AND IMPRESSION: The initial image obtained during the venogram shows widely patent left subclavian and axillary veins. Thereafter, the subclavian vein is localized, and final image shows the inserted cardiac pacing leads. Please refer to the procedure report. Chest X-Ray 06/13/21 11:55 IMPRESSION: * There is a newly placed dual chamber cardiac pacemaker. * No evidence of pulmonary edema, pneumothorax or pleural effusion. Chest X-Ray 06/13/21 17:00 IMPRESSION: Suspect new left apical pneumothorax 1% and less. Bilateral patchy opacities in lung bases question developing infiltrates. Chest X-Ray 06/14/21 05:00 FINDINGS/IMPRESSION: No definite pneumothorax is present. Suspect a skin fold projecting over the left lung apex. Subsegmental atelectasis, left lower lung. No discrete consolidation. Normal heart size and pulmonary vascularity. Dual-lead pacemaker stably positioned. <ABDULLAHI Doss - Last Filed: 06/14/21 11:07> Progress Note: A&P Assessment and plan (1) Sinus pause: Status: Acute <ABDULLAHI Doss - Last Filed: 06/14/21 11:07> Assessment and Plan: Noted to have sinus pauses this admit, up to 6.4 sec while awake. Had fall prior to her admit, which could have been related to pause/ syncope event. Yesterday she had dual chamber pacemaker placed. Interrogation this am shows device is functioning normally. CXR this am shows no pneumothorax and good lead placement. Pacer site left upper chest has dry gauze dressing covered with tegaderm. No staining noted. No swelling or bruising. Spent time going over site care, mobility restrictions with / pt. She has remote monitor to be used at bedside after discharge. They plan to have her go to rehab. Will plan for wound check in our office in 2 weeks. Then device check our office in 6 weeks. Can be discharged from a cardiology perspective. <ABDULLAHI Doss - Last Filed: 06/14/21 11:07> (2) Pacemaker: Status: Acute <ABDULLAHI Doss - Last Filed: 06/14/21 11:07> Assessment and Plan: Interrogation today shows Biotronik dual chamber pacemaker, DDD mode, low rate 50, upper tracking rate 130, battery 100%, A and V thresholds normal, No alerts, No setting changes needed. <ABDULLAHI Doss - Last Filed: 06/14/21 11:07> (3) Syncope: Status: Acute <ABDULLAHI Doss - Last Filed: 06/14/21 11:07> (4) Displaced fracture of right femoral neck: Status: Acute <ABDULLAHI Doss - Last Filed: 06/14/21 11:07> Assessment and Plan: Followed by orthopedics <ABDULLAHI Doss - Last Filed: 06/14/21 11:07> Fall Risk Details Current Medications: Current Medications Generic Name Dose Route Start Last Admin Trade Name Freq PRN Reason Stop Dose Admin Acetaminophen 650 mg 06/09/21 14:39 Acetaminophen Supp 650 Mg Supp.Rect MD Q6H PRN Pain, Mild (Pain Scale 1-3) Acetaminophen 650 mg 06/12/21 19:31 06/13/21 12:30 Acetaminophen 325 Mg Tablet PO 650 mg Q6H PRN Administration Fever Aspirin 325 mg 06/11/21 22:00 06/14/21 08:11 Aspirin 325 Mg Tablet PO 325 mg BID JOMAR Administration Atropine Sulfate 0.5 mg 06/12/21 10:07 Atropine Sulfate 1 Mg/Ml Vial IVPUSH ONCE PRN HR <45 Docusate Sodium 100 mg 06/09/21 21:00 06/14/21 08:11 Docusate Sodium 100 Mg Capsule PO 100 mg BID JOMAR Administration Folic Acid 1 mg 06/11/21 09:00 06/14/21 08:10 Folic Acid 1 Mg Tablet PO 1 mg DAILY JOMAR Administration Piperacillin Sod/Tazobactam 50 mls @ 100 mls/hr 06/12/21 07:00 06/14/21 06:37 Sod 3.375 gm/ Sodium Chloride IV Infused Q6H JOMAR Infusion Levothyroxine Sodium 75 mcg 06/11/21 09:00 06/14/21 08:10 Levothyroxine Sodium 75 Mcg Tablet PO 75 mcg DAILY JOMAR Administration Morphine Sulfate 2 mg 06/09/21 14:39 06/09/21 15:00 Morphine Sulfate 2 Mg/Ml Cartridge IVPUSH 2 mg Q2H PRN Administration Pain, Severe (Pain Scale 7-10) Naloxone HCl 0.2 mg 06/09/21 14:39 Naloxone Hcl 0.4 Mg/Ml Vial IVPUSH Q2M PRN Excessive sedation or RR < 8 Nicotine 7 mg 06/12/21 09:00 06/14/21 08:11 Nicotine 7 Mg Patch.Td24 TRANSDERMA 7 mg DAILY JOMAR Administration Nicotine Polacrilex 2 mg 06/13/21 09:52 Nicotine Polacrilex 2 Mg Gum BUCCAL Q2H PRN Nicotine Cravings Ondansetron HCl 4 mg 06/10/21 12:54 Ondansetron Hcl 4 Mg/2 Ml Vial IVPUSH Q8H PRN Nausea and Vomiting Oxycodone HCl 10 mg 06/09/21 16:00 06/14/21 08:10 Oxycodone Hcl Immed Release 5 Mg Tablet PO 10 mg Q6H JOMAR Administration Sodium Chloride 3 ml 06/09/21 16:00 06/14/21 08:11 0.9 % Sodium Chloride Flush 3 Ml Syringe IVFLUSH 3 ml QSHIFT JOMAR Administration Sodium Chloride 3 ml 06/10/21 16:00 06/14/21 09:08 0.9 % Sodium Chloride Flush 3 Ml Syringe IVFLUSH Not Given QSHIFT JOMAR Vitamin D 25 mcg 06/11/21 09:00 06/14/21 08:11 Cholecalciferol (Vitamin D3) 25 Mcg Tablet PO 25 mcg DAILY JOMAR Administration <ABDULLAHI Doss - Last Filed: 06/14/21 11:07> Time Spent With Patient Time: Total time spent is greater than 50% in coordination of care (as documented) at patient's floor/unit and/or counseling patient: 22 <ABDULLAHI Doss - Last Filed: 06/14/21 11:07> Time with patient: 15 - 24 minutes <ABDULLAHI Doss - Last Filed: 06/14/21 11:07> Progress Note: Quality Stroke Does the patient have a stroke diagnosis?: No <ABDULLAHI Doss - Last Filed: 06/14/21 11:07> Procedures Date of Service Date of Service: 06/14/21 <ABDULLAHI Doss - Last Filed: 06/14/21 11:07>
--- NOTE | 2021-06-14 11:13 | HO.POSTANES ---
Post Anesthesia Evaluation Post Anesthesia Evaluation Vital Signs: Vital Signs Temp Pulse Resp BP Pulse Ox 06/14/21 11:09 98 F 85 20 106/57 L 96 06/14/21 10:41 86 125/63 96 06/14/21 07:12 97 F 86 20 125/63 96 06/14/21 06:53 97 F 80 20 131/66 96 06/14/21 03:27 98.6 F 82 18 100/66 98 06/13/21 23:35 98.2 F 99 19 129/72 95 Anesthesia: Monitored Mental Status: Awake Pain Control: Satisfactory Nausea/Vomiting: None Hydration: Adequate Anesthesia-Related Issues: No Anes. Related Issues
--- NOTE | 2021-06-14 13:13 | P.DS_ITS ---
DS: Providers Provider Date of Service: 06/14/21 Date of admission: 06/09/21 14:33 Primary care physician: Marry Campuzano MD Consults: 06/09/21 14:39 Consult to Hospitalist Routine Consulting Provider: Hospitalist Reason For Exam: pre op clearance 06/10/21 13:09 Consult to Cardiology Stat Consulting Provider: Stuart Brown Reason for consultation: symptomatic with cardiac pause in PACU s/p right hip enrique DS: Diagnosis Discharge Diagnosis (1) Sinus pause: Status: Acute (2) Pacemaker: Status: Acute (3) Syncope: Status: Acute (4) Displaced fracture of right femoral neck: Status: Acute DS: Medications Discharge Medications Home Medications: Previous Rx's Medication Instructions Recorded cholecalciferol (vitamin D3) 25 25 mcg PO DAILY #90 cap 12/30/20 mcg (1,000 unit) capsule folic acid 1 mg tablet 1 mg PO DAILY #90 tab 12/30/20 levothyroxine 75 mcg tablet 75 mcg PO DAILY #90 tab 12/30/20 miscellaneous medical supply 1 ea MISCELLANEOUS .QD #1 ea 12/30/20 ciprofloxacin HCl 500 mg tablet 500 mg PO BID #14 tab 06/04/21 (Cipro) acetaminophen 325 mg tablet 650 mg PO Q6H PRN 30 Days #240 tab 06/14/21 amoxicillin 875 mg-potassium 1 tab PO Q12H 5 Days #10 tab 06/14/21 clavulanate 125 mg tablet (Augmentin) aspirin 325 mg tablet 325 mg PO BID 42 Days #84 tab 06/14/21 docusate sodium 100 mg capsule 100 mg PO BID 14 Days #28 cap 06/14/21 oxycodone 5 mg tablet 5 mg PO Q6H 7 Days #28 tab 06/14/21 DS: Summary Hospital Course Hospital Course: Gonzalez Santiago is a 56 year old female who presented to the ED after sustaining a fall onto her right side. This occurred just prior to arrival. She has baseline dementia where she is A/O x2. She lives at home with her . She uses wheelchair and walker for transfers. At the time of her fall, she was transferring to her wheelchair when she fell. EMS was called and she was transported to the ED. Upon examination and xrays, she was found to have a right femoral neck fracture. The plan was to admit her to the orthopedic service for surgical planning. The patient underwent a successful right hip enrique arthroplasty, was transferred to PACU and then to the floor to recover. During their stay, their vitals were stable, afebrile at 98.0. Labs were unremarkable, H/H 10.0/30.3 . POD 1 she was started on aspirin for DVT ppx, they also received physical therapy and occupational therapy services twice a day. Immediately after surgery she was having some sinus pauses/bradycardia. She was evaluated by Cardiology and because these were continuous and becoming longer in nature the decision was made to implant a pacemaker. Prior to discharge, their dressing was change, incision clean dry and intact, new Aquacel dressing applied and the plan was to be discharged to short-term rehab. She is also being placed on Augmentin 875 mg b.i.d. x5 days to treat possible pneumonia. Chest x-ray is improving. Blood cultures negative. Time Spent with Patient Time attestation: Total time spent providing and/or coordinating discharge services: Discharge coordination time: Less than 30 minutes Quality: Stroke Does the patient have a stroke diagnosis?: No Physical Exam Vital Signs: Vital Signs: Last Vital Signs Temp 98 F 06/14/21 11:09 Pulse 85 06/14/21 11:09 Resp 20 06/14/21 11:09 BP 106/57 L 06/14/21 11:09 Pulse Ox 96 06/14/21 11:09 Body Mass Index 29.2 Const: General: cooperative, healthy appearing and no acute distress Resp: Effort & Inspection: normal respiratory effort and able to speak in complete sentences Cardio: Rate: regular rate Peripheral pulses: Peripheral pulses 2+ throughout GI: Palpation (GI): Soft to palpation Skin: General skin exam: no rashes or lesions noted Extrem: Other: incision clean dry and intact. Cuervo intact. No erythema or effusion. Calf supple nontender. Neurovascularly intact. DS: Data Data Completed and Pending Completed studies during hospitalization [Text1]: Pending at discharge 06/10/21 11:38 Surgical [PTH] Routine Labs on day of discharge: Laboratory Results - last 24 hr 06/14/21 06/14/21 05:49 05:49 WBC 14.7 H RBC 3.43 L Hgb 10.0 L Hct 30.3 L MCV 88.3 MCH 29.2 MCHC 33.0 RDW 12.9 Plt Count 306 MPV 10.7 Immature Gran % (Auto) 0.8 H Neut % (Auto) 79.1 H Lymph % (Auto) 13.6 L [place] % (Auto) 5.3 Eos % (Auto) 1.0 Baso % (Auto) 0.2 Lymph # (Auto) 2.0 [place] # (Auto) 0.8 Eos # (Auto) 0.2 Baso # (Auto) 0.0 Abs Immat Gran (auto) 0.12 H Absolute Neuts (auto) 11.6 H Absolute Nucleated RBC 0.000 Nucleated RBC % (auto) 0.0 Sodium 140 Potassium 3.4 Chloride 102 Carbon Dioxide 28 Anion Gap 13 BUN 7 L Creatinine 0.58 Estim Creat Clear Calc 101.0 Estimated GFR > 60 Random Glucose 91 Calcium 8.3 L Preliminary micro results at discharge 06/12/21 01:25 Blood Culture - Preliminary Blood - Venous No growth after 48 hours. 06/12/21 01:25 Blood Culture - Preliminary Blood - Venous No growth after 48 hours. 06/12/21 20:02 Blood Culture - Preliminary Blood - Venous No growth after 24 hours. 06/12/21 20:02 Blood Culture - Preliminary Blood - Venous No growth after 24 hours. Discharge Plan Discharge Patient Disposition: [facility] [place] Discharge Diagnosis: Status post right hip hemiarthroplasty Status post pacemaker Referrals: [facility] [Outside] - 1 Week Marry Campuzano MD [Primary Care Provider] - 1 Week Jose F Henriquez PA-C [Physician Entry Level Marketing Assistant] - 2 Weeks Discharge Medications: New docusate sodium 100 mg Capsule 100 mg PO BID 14 Days Qty: 28 RF: 0 oxycodone 5 mg Tablet 5 mg PO Q6H 7 Days Qty: 28 RF: 0 aspirin 325 mg Tablet 325 mg PO BID 42 Days Qty: 84 RF: 0 acetaminophen 325 mg Tablet 650 mg PO Q6H PRN (Reason: Fever) 30 Days Qty: 240 RF: 0 amoxicillin-pot clavulanate [Augmentin] 875-125 mg tablet 1 tab PO Q12H 5 Days Qty: 10 RF: 0 Continued cholecalciferol (vitamin D3) 25 mcg (1,000 unit) capsule 25 mcg PO DAILY Qty: 90 RF: 3 folic acid 1 mg tablet 1 mg PO DAILY Qty: 90 RF: 3 levothyroxine 75 mcg tablet 75 mcg PO DAILY Qty: 90 RF: 3 miscellaneous medical supply Misc 1 ea miscellaneous .QD Qty: 1 RF: 0 ciprofloxacin HCl [Cipro] 500 mg tablet 500 mg PO BID Qty: 14 RF: 0 Discharge Orders: Discharge Order (Routine); Ordered 06/14/21 Ordered By: Jose F Henriquez Diet: regular diet Activity on Discharge: Use cane or walker Stand Alone Forms: Patient Portal Discharge page Care Plan Goals: Restore function of joint Health Concerns: Monitor pacemaker Plan of Treatment: Physical Therapy Pain management DVT prophylaxis Assessment: * Physical Therapy for Total hip arthroplasty: no precautions, gait training, ROM, strength * Limit stair climbing * No showering, no tub bath-keep dressing clean, dry and intact * No driving x6 weeks * Continue Aspirin 325mg tabs twice a day x 4 weeks * Follow up with [facility] in 2 weeks Patient Instructions: Pacemaker (DC)
[2021-06-14 13:20] LABS: COVID-19 Test Negative (Negative); IDNOW Serial# 9DD0AD1C
--- NOTE | 2021-06-14 13:46 | MHC.CM.PN ---
Female 56 DX Hip FX S/P Pacer Patient is discharged to [facility] via BLS. DC INFO sent.
[2021-06-15] MEDS: Piperacillin Sodium/Tazobactam 3.375 GM in 0.9 % Sodium Chloride 50 ML IV ×2 (00:12→06:00)
[2021-06-15 03:49] VITALS: BP 134/66; PULSE 81; RESP 20; TEMP 37.1; O2SAT 97
[2021-06-15 07:44] VITALS: BP 134/68; PULSE 75; RESP 18; TEMP 36.3; O2SAT 96
[2021-06-15] MEDS: Nicotine 7 MG PATCH.TD24 TRANSDERMA (08:56)
[2021-06-15] MEDS: Aspirin 325 MG TABLET PO (08:56)
[2021-06-15] MEDS: Docusate Sodium 100 MG CAPSULE PO (08:56)
[2021-06-15] MEDS: Cholecalciferol (Vitamin D3) 25 MCG TABLET PO (08:56)
[2021-06-15] MEDS: Levothyroxine Sodium 75 MCG TABLET PO (08:56)
[2021-06-15] MEDS: Folic Acid 1 MG TABLET PO (08:56)
[2021-06-15 10:48] VITALS: BP 134/68; PULSE 75; O2SAT 96
[2021-06-15 11:30] VITALS: BP 130/66; PULSE 75; RESP 18; TEMP 36.2; O2SAT 98
--- NOTE | 2021-06-15 12:28 | MHC.CM.PN ---
IMM 06/14/21 Authorization has been received from [facility] for STR. Patient discharge to [facility] via BLS.
== END 2021-06-15 13:31 | disposition skilled nursing facility (03) | DRG 521 ==
LOC: HO.ED 14:41 → HO.EDOVER 15:06 → HO.S3 19:38 → HO.IMC 06-10 15:02
PROVIDERS: Family Medicine; Internal Medicine; Internal Medicine Cardiovascular Disease; Orthopaedic Surgery; Admitting Provider Physician Assistant; Emergency Provider Emergency Medicine Emergency Medical Services; PCP Internal Medicine; Visit Provider Physician Assistant
PROC: 0SRR0JA Replacement of Right Hip Joint, Femoral Surface with Synthetic Substitute, Uncemented, Open Approach (ICD-10-PCS; CPT 27125; principal; 2021-06-10 09:30)
PROC: 0JH606Z Insertion of Pacemaker, Dual Chamber into Chest Subcutaneous Tissue and Fascia, Open Approach (ICD-10-PCS; principal; 2021-06-13 09:00)
DX: S72.011A Unspecified intracapsular fracture of right femur, initial encounter for closed fracture (principal); A41.9 Sepsis, unspecified organism; T81.44XA Sepsis following a procedure, initial encounter; J18.9 Pneumonia, unspecified organism; Z20.822 Contact with and (suspected) exposure to COVID-19; F17.210 Nicotine dependence, cigarettes, uncomplicated; I49.5 Sick sinus syndrome; Z71.6 Tobacco abuse counseling; E03.9 Hypothyroidism, unspecified; F03.90 Unspecified dementia, unspecified severity, without behavioral disturbance, psychotic disturbance, mood disturbance, and anxiety; D64.9 Anemia, unspecified; W05.0XXA Fall from non-moving wheelchair, initial encounter; Y93.9 Activity, unspecified; Y92.009 Unspecified place in unspecified non-institutional (private) residence as the place of occurrence of the external cause; Y99.9 Unspecified external cause status; Z79.890 Hormone replacement therapy; Z79.899 Other long term (current) drug therapy
CPT/HCPCS: 36415; 71045; 73502; 73560; 73610; 80048; 81001; 81003; 83605; 83735; 84439; 84484; 85025; 86850; 86900; 86901; 87040; 87635; 88305; 88311; 93005; 93306; 97110; 97162; 97166; 97530; 97535; 99285; C1776; C1785; C1892; C1898; J0131; J0690; J1100; J2250; J2270; J2405; J2543; J3010; J3370; Q9967

== ENCOUNTER → 2021-06-24 12:59 | Outpatient (BNVA) | payer OTHER, SELFPAY | PROVIDERS: PCP Internal Medicine; Referring Provider Internal Medicine; Visit Provider Nurse Practitioner Family | DX: Z51.89 Encounter for other specified aftercare (principal); I45.5 Other specified heart block; Z95.0 Presence of cardiac pacemaker | CPT/HCPCS: 99212 ==

== ENCOUNTER → 2021-06-30 09:34 | Outpatient (BNVA) | payer OTHER, SELFPAY | PROVIDERS: PCP Internal Medicine; Visit Provider Physician Assistant | DX: Z47.1 Aftercare following joint replacement surgery (principal); Z96.641 Presence of right artificial hip joint | CPT/HCPCS: 99202 ==

== ENCOUNTER 2021-07-07 16:52 | Inpatient (IN) | payer OTHER, SELFPAY ==
[2021-07-07] VITALS (15 sets, daily range): BP systolic 99–134; BP diastolic 54–93; PULSE 80–99; RESP 12–20; TEMP 36.6–36.8; O2SAT 96–100; BMI 32.9
--- NOTE | ~2021-07-07 | XR_ITS ---
EXAMINATION: XR HIP, RIGHT CLINICAL INFORMATION: Reduction COMPARISON: Same day film TECHNIQUE: A view of the right hip. FINDINGS: No change in position. The acetabular component is superior to the [place] acetabulum. Therefore there has been no reduction. XR/XR hip RT 1V IMPRESSION: Persistent dislocation of the acetabular component superior to the acetabulum
--- NOTE | ~2021-07-07 | XR_ITS ---
EXAMINATION: XR HIP, RIGHT CLINICAL INFORMATION: Dislocated hip COMPARISON: 06/11/2021 TECHNIQUE: 3 views of the right hip. FINDINGS: The right prosthesis is present and there is dislocation. The entire prosthesis is dislocated superolateral laterally. No fracture is seen.. An IUD is present in the uterus. XR/XR hip RT w PEL1V IMPRESSION: Dislocated right hip prosthesis
--- NOTE | ~2021-07-07 | FL_ITS ---
EXAMINATION: XR FLUOROSCOPY WITH IMAGES CLINICAL INFORMATION: Right hip closed reduction COMPARISON: Right upper 07/07/2021 TECHNIQUE: Fluoroscopy performed by Dr. Timothy newton. Fluoroscopy time: 0.4 minutes DAP: 0.118 mGycm2 Images: 2 FINDINGS: Post reduction the right hip prosthesis is well situated within the acetabular fossa. No visible fracture seen. The soft tissues are unremarkable. FL/FL guidance in OR IMPRESSION: Postreduction the entire prosthesis is well situated within the right acetabular fossa. No fracture seen.
--- NOTE | 2021-07-07 18:40 | ED_ITS ---
HPI - General Adult General Chief complaint: General Medical Stated complaint: unknown Time Seen by Provider: 07/07/21 18:35 Source: patient and family Mode of arrival: EMS History of Present Illness HPI narrative: Patient status post right hip hemiarthroplasty done on 06/10 was sitting on the wheelchair and noticed pain on the right hip had x-ray done at custodial which showed dislocated right hip no other injuries . no recent fall Related Data Previous Rx's Medication Instructions Recorded cholecalciferol (vitamin D3) 25 25 mcg PO DAILY #90 cap 12/30/20 mcg (1,000 unit) capsule folic acid 1 mg tablet 1 mg PO DAILY #90 tab 12/30/20 levothyroxine 75 mcg tablet 75 mcg PO DAILY #90 tab 12/30/20 miscellaneous medical supply 1 ea MISCELLANEOUS .QD #1 ea 12/30/20 ciprofloxacin HCl 500 mg tablet 500 mg PO BID #14 tab 06/04/21 (Cipro) acetaminophen 325 mg tablet 650 mg PO Q6H PRN 30 Days #240 tab 06/14/21 amoxicillin 875 mg-potassium 1 tab PO Q12H 5 Days #10 tab 06/14/21 clavulanate 125 mg tablet (Augmentin) aspirin 325 mg tablet 325 mg PO BID 42 Days #84 tab 06/14/21 docusate sodium 100 mg capsule 100 mg PO BID 14 Days #28 cap 06/14/21 oxycodone 5 mg tablet 5 mg PO Q6H 7 Days #28 tab 06/14/21 miscellaneous medical supply 1 ea MISCELLANEOUS .QD #1 ea 06/18/21 Allergies Allergy/AdvReac Type Severity Reaction Status Date / Time No Known Allergies Allergy Verified 06/30/21 09:52 Review of Systems Review of Systems: Yes all other systems are reviewed and are negative [facility] Past Medical History Medical History Balance disorder Closed hip fracture Dementia Displaced fracture of right femoral neck Hypothyroidism Increased urinary frequency Lactose intolerance Left leg weakness Memory loss PTSD (post-traumatic stress disorder) Sinus arrest Sinus pause Symptomatic bradycardia Syncope Tobacco dependence Urinary incontinence Surgical History No pertinent past surgical history Social History Social History Household Members: Spouse Housing: Apartment Alcohol intake: current Alcohol intake frequency: does not drink Patient Tobacco Use Status: Current everyday Tobacco user Tobacco use type: Cigarette Cigarettes Per Day: 8 Use of substances other than those prescribed or required for medical reasons: No Currently Displaying Signs/Symptoms of Drug Intoxication Withdrawal: No Advance Directives: No Advance Directives Information Provided: No Do you have thoughts of harming others: None Do you have a plan to hurt others: No Plan service: No Current occupational status: disabled Current occupation: rt handed Physical Exam Vital Signs: Vital Signs: Last Vital Signs Temp 97.8 F 07/08/21 00:00 Pulse 95 07/08/21 00:00 Resp 17 07/08/21 00:00 BP 124/64 07/08/21 00:00 Pulse Ox 96 07/08/21 00:00 Oxygen Flow Rate 2 07/07/21 21:06 Body Mass Index 32.9 Appearance: Alert. Oriented X3. No acute distress. Limited exam because of obesity Eyes: No pallor or icterus ENT: Pharynx normal. Oral Mucosa moist Neck: Normal inspection. Neck supple. CVS: Normal heart rate and rhythm. Pulses normal. Respiratory: No respiratory distress. Equal air entry bilateral, no wheezing/rales/rhonchi Abdomen: Soft and nontender. Bowel sounds are present, Skin: Skin warm and dry. Normal skin color. Normal skin turgor. Extremities: No lower extremity edema. No calf tenderness, tender right hip at lateral aspect neurovascular intact Neuro: Oriented X 3. No motor deficit. Procedures Procedural Sedation Indication: fracture/dislocation reduction ASA Class: I Preparation: medical sociologist applied and pulse oximeter IV Propofol dose (mg): 80 Patient Tolerated Procedure: well Complications: none Medical Decision Making MDM Narrative Medical decision making narrative: Patient with prosthetic right hip posterior dislocation under conscious sedation reduction was tried unsuccessful multiple times, case discussed orthopedic will do reduction in OR tomorrow Lab Data Labs: Lab Results 07/07/21 Range/Units 21:30 COVID-19 (BOB) Negative (Negative) COVID-19 Clin Com See Note Imaging Data hip: Attestation: I personally reviewed and interpreted this imaging study as follows: Radiologist's impression: rdering Physician: Rafael Bourgeois MD Date of Service: 07/07/21 Procedure(s): XR hip RT w PEL1V Accession Number(s): [id number] cc: Rafael Bourgeois MD~ EXAMINATION: XR HIP, RIGHT CLINICAL INFORMATION: Dislocated hip COMPARISON: 06/11/2021 TECHNIQUE: 3 views of the right hip. FINDINGS: The right prosthesis is present and there is dislocation. The entire prosthesis? is dislocated superolateral laterally. No fracture is seen.. An IUD is present in the uterus. XR/XR hip RT w PEL1V IMPRESSION: Dislocated right hip prosthesis Discharge Plan Discharge Clinical Impression: Closed dislocation of right hip Qualifiers: Encounter type: initial encounter Qualified Code(s): S73.004A - Unspecified dislocation of right hip, initial encounter Patient Disposition: Admitted As Inpatient Interventions: Admission Worksheet (ED) Last Done: 07/07/21 22:59 Discharge Date/Time: 07/07/21 23:00
[2021-07-07] MEDS: Morphine Sulfate 4 MG/ML CARTRIDGE IVPUSH (19:22)
[2021-07-07] MEDS: ondansetron HCL 4 MG/2 ML VIAL IVPUSH (19:22)
--- NOTE | 2021-07-07 21:21 | PM.EVENT ---
Event Note Date of Service: 07/07/21 Event Note: patient is s/p right hip hemiarthroplasty with Dr lopez failed reduction attempt in ED admit for closed reduction under anesthesia tomorrow NPO full note to follow
[2021-07-07 21:52] LABS: COVID-19 Test Negative (Negative); IDNOW Serial# 9DD0AD1C
[2021-07-07] MEDS: oxyCODONE HCl Immed Release 5 MG TABLET PO (22:06)
--- NOTE | 2021-07-07 23:00 | PC.NURSE ---
pt to floor in stable condition w/ all belongings. notified via phone of updated location
[2021-07-07] MEDS: Acetaminophen 325 MG TABLET 650 MG PO (23:51)
[2021-07-08] VITALS (14 sets, daily range): BP systolic 97–124; BP diastolic 43–64; PULSE 78–98; RESP 15–18; TEMP 36.3–36.9; O2SAT 95–100; BMI 28.1
--- NOTE | 2021-07-08 01:00 | PC.NURSE ---
late entry. pt given 80 mg of propofol total during conscious sedation. administered by MD. unable to chart on JAN- data confirmable by GERALDINE Herzog RN
[2021-07-08 06:11] LABS: MANUAL DIFF FLAG NO
[2021-07-08 06:23] LABS: Basophils Absolute Auto 0.1 X10*3/uL (0.0-0.2); Basophils Percent Auto 0.5 % (0-2); Eosinophils Absolute Auto 0.5 X10*3/uL (0.0-0.4); Eosinophils Percent Auto 4.3 % (0-4); Hematocrit 33.1 % (37-47); Hemoglobin 10.4 g/dl (12.0-16.0); Imm Gran Abs Auto 0.09 X10*3/uL (0.00-0.03); Imm Gran Pct Auto 0.8 % (0.0-0.4); Lymphocytes Absolute Auto 2.4 X10*3/uL (1.2-4.9); Lymphocytes Percent Auto 21.3 % (20-40); Mean Corpuscular HGB Conc 31.4 g/dl (31.0-35.0); Mean Corpuscular Hemoglobin 28.5 pg (27.0-33.0); Mean Corpuscular Volume 90.7 fL (80-98); Mean Platelet Volume 9.9 fL (9.4-12.3); Monocytes Absolute Auto 0.7 X10*3/uL (0.1-1.2); Monocytes Percent Auto 6.2 % (2-11); Neutrophils Absolute Auto 7.5 X10*3/uL (2.0-8.3); Neutrophils Percent Auto 66.9 % (45-73); Platelet Count 362 X10*3/uL (160-400); Red Blood Count 3.65 X10*6/uL (4.20-5.50); Red Cell Distribution Width 14.4 % (11.0-16.0); White Blood Count 11.2 X10*3/uL (4.8-10.8)
[2021-07-08 06:47] LABS: Anion Gap 9 (12-20); Blood Urea Nitrogen 17 mg/dL (9-16); Calcium 8.8 mg/dL (8.4-10.2); Carbon Dioxide 29 mmol/L (22-29); Chloride 106 mmol/L (96-108); Creatinine Clr Calc Pharmacy 94.3; Estimated Glomerular Filt Rate > 60; Glucose Random 87 mg/dL (60-115); Potassium 3.9 mmol/L (3.3-5.1); Sodium 140 mmol/L (135-145)
--- NOTE | 2021-07-08 07:34 | PM.HPOR ---
History of Present Illness History of Present Illness Date of Service: 07/08/21 Chief complaint: unknown Narrative: Gonzalez Santiago is a 56 year old female s/p right hip enrique on 06/10/[address] Madden. She has a PMH significant for dementia and during her last hospitalization with us she underwent a pacemaker due to sinus pauses. The patient is unable to tell me the events that caused her hip dislocation. However, from the ED notes it appears that she was sitting in a wheelchair when she felt an onset of pain. X-rays obtained at her nursing facility revealed that she had a right hip dislocation. She was then transferred to our ED for further evaluation and treatment. Attempts were made in the ED for reduction without success and orthopedics was then consulted. The patient was admitted to the orthopedic service for further evaluation and treatment. Review of Systems Review of Systems: Yes all other systems are reviewed and are negative [facility] Past Medical History Medical History Balance disorder Closed hip fracture Dementia Displaced fracture of right femoral neck Hypothyroidism Increased urinary frequency Lactose intolerance Left leg weakness Memory loss PTSD (post-traumatic stress disorder) Sinus arrest Sinus pause Symptomatic bradycardia Syncope Tobacco dependence Urinary incontinence Surgical History Surgical History No pertinent past surgical history Social History Social History Household Members: Spouse Housing: House Do you presently have visiting nurse or other home services: No (patient was at rehab following her hip surgery) Alcohol intake: current Alcohol intake frequency: does not drink Patient Tobacco Use Status: Current everyday Tobacco user Tobacco use type: Cigarette Cigarettes Per Day: 8 Years Smoked: since teen years per pt Smoked in Last 30 Days: Yes e-Cigarette/Vaping Use: Never Used Patient Interested in Nicotine Replacement: Yes Patient Given Instructions on How to Stop Smoking: No Second Hand Smoke Exposure: No Use of substances other than those prescribed or required for medical reasons: Yes Substance Use Type: Marijuana Substance Use Frequency: Occasionally Last Used Substance: Unknown Currently Displaying Signs/Symptoms of Drug Intoxication Withdrawal: No Any prior treatment program specific to substance use: No Have you been hit, kicked, punched, or otherwise hurt by someone within the past year? If so, by whom?: No Do you feel safe in your current relationship?: Yes Is there a partner from a previous relationship who is making you feel unsafe now?: No Are you made to feel afraid or neglected: No Advance Directives: No Advance Directives Information Provided: No Do you have thoughts of harming others: None Do you have a plan to hurt others: No Plan Recently lost weight without trying: No Eating poorly because of decreased appetite: No Nutrition Risks: No Nutritional Risk Patient : No : No Poor oral hygiene: No (patient with no natural teeth) service: No Current occupational status: disabled Current occupation: rt handed Meds Allergies Allergy/AdvReac Type Severity Reaction Status Date / Time No Known Allergies Allergy Verified 06/30/21 09:52 Active Medications: Current Medications Generic Name Dose Route Start Last Admin Trade Name Freq PRN Reason Stop Dose Admin Acetaminophen 650 mg 07/08/21 00:00 07/08/21 05:45 Acetaminophen 325 Mg Tablet PO Not Given Q6H [facility] Oxycodone HCl 5 mg 07/07/21 21:19 07/08/21 03:42 Oxycodone Hcl Immed Release 5 Mg Tablet PO Not Given Q6H [facility] Pharmacy Consult 1 each 07/07/21 23:23 Consult Rx Perform Med Rec MISCELLANE ONCE PRN Consult order Physical Exam Vital Signs: Vital Signs: Last Vital Signs Temp 97.9 F 07/08/21 04:00 Pulse 79 07/08/21 04:00 Resp 16 07/08/21 04:00 BP 112/63 07/08/21 04:00 Pulse Ox 97 07/08/21 04:00 Oxygen Flow Rate 2 07/07/21 21:06 Body Mass Index 28.1 Const: General: cooperative, healthy appearing and no acute distress Resp: Effort & Inspection: normal respiratory effort and able to speak in complete sentences Cardio: Rate: regular rate Peripheral pulses: Peripheral pulses 2+ throughout GI: Palpation (GI): Soft to palpation Skin: Lesions: no lesions Rashes: no rashes Extrem: Other: Right hip prior incision is well approximated. No ecchymosis, erythema, or edema. Patient is able to dorsiflex and plantarflex without difficulties. NVI. Results Labs Result Diagrams: 07/08/21 05:56 07/08/21 05:56 Labs: Abnormal lab results 07/08/21 07/08/21 Range/Units 05:56 05:56 WBC 11.2 H (4.8-10.8) X10*3/uL RBC 3.65 L (4.20-5.50) X10*6/uL Hgb 10.4 L (12.0-16.0) g/dl Hct 33.1 L (37-47) % Immature Gran % (Auto) 0.8 H (0.0-0.4) % Eos % (Auto) 4.3 H (0-4) % Eos # (Auto) 0.5 H (0.0-0.4) X10*3/uL Abs Immat Gran (auto) 0.09 H (0.00-0.03) X10*3/uL Anion Gap 9 L (12-20) BUN 17 H D (9-16) mg/dL H & H 07/08/21 Range/Units 05:56 Hgb 10.4 L (12.0-16.0) g/dl Hct 33.1 L (37-47) % All other labs normal. Assessment and Plan (1) Status post hip hemiarthroplasty: Status: Acute -Continue pain management -Planning for closed reduction under anesthesia in the OR today with Dr. Madden -Continue NPO (2) Hip dislocation, right: Status: Acute Quality Stroke Does the patient have a stroke diagnosis?: No VTE Prior VTE?: No VTE Risk Level:: Medical - low VTE Device Contraindication: N/A - Device Ordered VTE Drug Contraindication: N/A - Med Ordered Procedures Date of Service Date of Service: 07/08/21
--- NOTE | 2021-07-08 08:43 | PHA.MEDREC ---
Pharmacy Consult ? Medication Reconciliation Pharmacy has completed the medication reconciliation. Patient is unsure in she is taking folic acid. It was recently filled on 07/06/2021, and she has been consistently filling it for months. Letha Zendejas, PharmD
--- NOTE | 2021-07-08 11:28 | P.CONAN_ITS ---
HPI - Anesthesia Eval Consult details Narrative: 56-year-old female with hip dislocation presents for manipulation under anesthesia for closed reduction and fixation PMFSH Active Problems Active Problems: All Active Problems (Updated 07/08/21 @ 09:37 by Isabella Pierre RN) Abnormal urine odor (Acute) Abnormal EKG (Acute) Status post hip hemiarthroplasty (Acute) Pacemaker (Acute) Visit for wound check (Acute) Closed dislocation of right hip (Acute) Hip dislocation, right (Acute) Sinus pause (Acute) Past Medical History Medical History Balance disorder Closed hip fracture Dementia Displaced fracture of right femoral neck History of pacemaker Hypothyroidism Increased urinary frequency Lactose intolerance Left leg weakness Memory loss PTSD (post-traumatic stress disorder) Sinus arrest Sinus pause Symptomatic bradycardia Syncope Tobacco dependence Urinary incontinence Family History Family history of problems with anesthesia: No Surgical History Surgical History (Updated 07/08/21 @ 07:59 by Isabella Pierre RN) Hx of total hip arthroplasty No pertinent past surgical history History of Problems with Anesthesia: No Social History Social History Household Members: Spouse Housing: House Do you presently have visiting nurse or other home services: No (patient was at rehab following her hip surgery) Alcohol intake: current Alcohol intake frequency: does not drink Patient Tobacco Use Status: Current everyday Tobacco user Tobacco use type: Cigarette Cigarettes Per Day: 8 Years Smoked: since teen years per pt Smoked in Last 30 Days: Yes e-Cigarette/Vaping Use: Never Used Patient Interested in Nicotine Replacement: Yes Patient Given Instructions on How to Stop Smoking: No Second Hand Smoke Exposure: No Use of substances other than those prescribed or required for medical reasons: No Substance Use Type: Marijuana Substance Use Frequency: Occasionally Last Used Substance: Unknown Currently Displaying Signs/Symptoms of Drug Intoxication Withdrawal: No Any prior treatment program specific to substance use: No Have you been hit, kicked, punched, or otherwise hurt by someone within the past year? If so, by whom?: No Do you feel safe in your current relationship?: Yes Is there a partner from a previous relationship who is making you feel unsafe now?: No Are you made to feel afraid or neglected: No Are you DNR?: No Advance Directives: No Advance Directives Information Provided: No Advance Directives on File: No Do you have thoughts of harming others: None Do you have a plan to hurt others: No Plan Recently lost weight without trying: No Eating poorly because of decreased appetite: No Nutrition Risks: No Nutritional Risk Patient : No : No Poor oral hygiene: No (patient with no natural teeth) service: No Current occupational status: disabled Current occupation: rt handed Meds Allergies Allergy/AdvReac Type Severity Reaction Status Date / Time No Known Allergies Allergy Verified 06/30/21 09:52 Active Medications: Current Medications Generic Name Dose Route Start Last Admin Trade Name Freq PRN Reason Stop Dose Admin Acetaminophen 650 mg 07/08/21 00:00 07/08/21 05:45 Acetaminophen 325 Mg Tablet PO Not Given Q6H [facility] Oxycodone HCl 5 mg 07/07/21 21:19 07/08/21 10:08 Oxycodone Hcl Immed Release 5 Mg Tablet PO Not Given Q6H [facility] Pharmacy Consult 1 each 07/07/21 23:23 Consult Rx Perform Med Rec MISCELLANE ONCE PRN Consult order Exam Exam Date and Time: July 08, 2021 1128 Height,Weight and Vital Signs: Height 5 ft 2 in Weight 154 lb 1.65 oz Last Vital Signs Temp 97.6 F 07/08/21 11:10 Pulse 81 07/08/21 11:26 Resp 17 07/08/21 11:26 BP 103/51 L 07/08/21 11:26 Pulse Ox 100 07/08/21 11:26 Oxygen Flow Rate 2 07/07/21 21:06 Pertinent Lab Results Pertinent Lab Results: Laboratory Tests 07/07/21 07/08/21 07/08/21 21:30 05:56 05:56 WBC 11.2 H RBC 3.65 L Hgb 10.4 L Hct 33.1 L MCV 90.7 MCH 28.5 MCHC 31.4 RDW 14.4 Plt Count 362 MPV 9.9 Immature Gran % (Auto) 0.8 H Neut % (Auto) 66.9 Lymph % (Auto) 21.3 [place] % (Auto) 6.2 Eos % (Auto) 4.3 H Baso % (Auto) 0.5 Lymph # (Auto) 2.4 [place] # (Auto) 0.7 Eos # (Auto) 0.5 H Baso # (Auto) 0.1 Abs Immat Gran (auto) 0.09 H Absolute Neuts (auto) 7.5 Absolute Nucleated RBC 0.000 Nucleated RBC % (auto) 0.0 Sodium 140 Potassium 3.9 Chloride 106 Carbon Dioxide 29 Anion Gap 9 L BUN 17 H D Creatinine 0.61 Estim Creat Clear Calc 94.3 Estimated GFR > 60 Random Glucose 87 Calcium 8.8 D COVID-19 (BOB) Negative COVID-19 Clin Com See Note Airway Mallampati Class: II TM Dist: >3cm Neck ROM: Full Denture: Upper Partial: Lower Loose/Missing/Broken Teeth: Yes Heart: [place] rhythm Assessment and Plan Assessment Anesthesia Assessment: Anesthesia Plan Discussed and Chart Reviewed Final Anesthetic Review Family History of Problems with Anesthesia: No History of Problems with Anesthesia: No NPO: Yes ASA Class: III Final Preanesthetic Review: No Changes in Pt Med Stat, Meds/Allgs Chart Lianna vences, Consent Obtained/Reviewed (With healthcare proxy) and Anes Risks/Benef Reviewed Patient Risk: Intermediate Procedure Risk: Low Anesthetic Plan Anesthetic Plan: GA (With muscle relaxation) Disposition: Standard PACU
--- NOTE | 2021-07-08 12:16 | MHC.CM.PN ---
Addendum entered by Violette Colmenares 07/08/21 14:53: PT EVAL SENT TO [facility], THEY WILL REQUEST AUTH FROM PTS INSURANCE COMPANY. PTS DC CANCELLED TODAY. Addendum entered by Violette Colmenares 07/08/21 12:42: PT IS CLEARED TO DC TODAY HOWEVER SHE WILL NEED A PT EVAL AND INSURANCE AUTH TO RETURN TO STR. 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 HE REPORTS THE PLAN IS FOR HER TO RETURN TO THAT FACILITY TODAY. PTS MEDICARE RIGHTS WERE REVIEWED WITH LUCAS AND A COPY WAS LEFT AT BEDSIDE PER DISCUSSION CURRENT DC PLAN IS RETURN TO [facility] TO COMPLETE STR BLS TRANSPORT REQUIRED
--- NOTE | 2021-07-08 12:26 | W.PM.OPN ---
Operative Note Operative Note Date of Service: 07/08/21 Narrative: OPERATIVE PROCEDURE NOTE SURGEON: Dr. Santos (Sarah Beth) Instrum MINE INSPECTOR FEDERAL: Deanna COTTER PREOP DIAGNOSIS: Dislocated right hemiarthroplasty POSTOP DIAGNOSIS: Same OPERATIVE PROCEDURE: Close reduction dislocated right hip hemiarthroplasty CLINICAL NOTE: This lady who underwent a hemiarthroplasty of her right hip a month ago presented to the emergency department with a dislocated hip. An attempt was made at a closed reduction in the emergency department but unfortunately failed. Therefore after explaining the risks, benefits, and alternatives to her the healthcare proxy it was mutually agreed upon to carry following procedure OPERATIVE PROCEDURE Under a general anesthetic the patient was transferred supine to a radiolucent bed. Fluoroscopy demonstrated a superiorly and anteriorly dislocated hip. With traction and internal rotation the hip was relocated. X-rays at this point demonstrated the hip to be located and would remain such with good range of motion. An abductor what she was put into place. We therefore terminated the procedure. The anesthesia was reversed. They were taken to the recovery room in good condition. There were no complications
[2021-07-08] MEDS: Acetaminophen 325 MG TABLET 650 MG PO ×2 (12:47→18:43)
[2021-07-08] MEDS: oxyCODONE HCl Immed Release 5 MG TABLET PO ×2 (16:20→20:19)
--- NOTE | 2021-07-08 18:39 | PC.NURSE ---
P patient does not remember when she voided last time,day RN unsure I patient denies discomfort,bladder scanned 215 ml at 1650 E will monitor
[2021-07-09] MEDS: Acetaminophen 325 MG TABLET 650 MG PO ×2 (00:41→06:03)
[2021-07-09 06:16] LABS: MANUAL DIFF FLAG NO
[2021-07-09 06:39] LABS: Basophils Absolute Auto 0.1 X10*3/uL (0.0-0.2); Basophils Percent Auto 0.5 % (0-2); Eosinophils Absolute Auto 0.4 X10*3/uL (0.0-0.4); Eosinophils Percent Auto 3.4 % (0-4); Hematocrit 32.5 % (37-47); Hemoglobin 10.4 g/dl (12.0-16.0); Imm Gran Abs Auto 0.06 X10*3/uL (0.00-0.03); Imm Gran Pct Auto 0.5 % (0.0-0.4); Lymphocytes Absolute Auto 2.2 X10*3/uL (1.2-4.9); Lymphocytes Percent Auto 18.8 % (20-40); Mean Corpuscular Hemoglobin 28.7 pg (27.0-33.0); Mean Corpuscular Volume 89.5 fL (80-98); Mean Platelet Volume 10.2 fL (9.4-12.3); Monocytes Absolute Auto 0.6 X10*3/uL (0.1-1.2); Monocytes Percent Auto 5.3 % (2-11); Neutrophils Absolute Auto 8.2 X10*3/uL (2.0-8.3); Neutrophils Percent Auto 71.5 % (45-73); Platelet Count 388 X10*3/uL (160-400); Red Blood Count 3.63 X10*6/uL (4.20-5.50); Red Cell Distribution Width 14.1 % (11.0-16.0); White Blood Count 11.4 X10*3/uL (4.8-10.8)
[2021-07-09 06:52] LABS: Anion Gap 12 (12-20); Blood Urea Nitrogen 16 mg/dL (9-16); Calcium 8.8 mg/dL (8.4-10.2); Carbon Dioxide 27 mmol/L (22-29); Chloride 104 mmol/L (96-108); Creatinine Clr Calc Pharmacy 92.7; Estimated Glomerular Filt Rate > 60; Glucose Random 92 mg/dL (60-115); Sodium 139 mmol/L (135-145)
--- NOTE | 2021-07-09 07:49 | PM.DS ---
DS: Providers Provider Date of Service: 07/09/21 Date of admission: 07/07/21 21:59 Primary care physician: Marry Campuzano MD DS: Diagnosis Discharge Diagnosis (1) Status post hip hemiarthroplasty: Status: Acute (2) Hip dislocation, right: Status: Acute DS: Medications Discharge Medications Home Medications: Previous Rx's Medication Instructions Recorded cholecalciferol (vitamin D3) 25 25 mcg PO DAILY #90 cap 12/30/20 mcg (1,000 unit) capsule folic acid 1 mg tablet 1 mg PO DAILY #90 tab 12/30/20 levothyroxine 75 mcg tablet 75 mcg PO DAILY #90 tab 12/30/20 DS: Summary Hospital Course Hospital Course: Ms. Santiago is a 56-year-old female who presented to the emergency department on 07/07/2021. She is status post right hip hemiarthroplasty on 06/10/[address] Madden. She began to express right hip pain while sitting in her wheelchair. The facility obtained an x-ray of the right hip which revealed a right hip hemiarthroplasty dislocation. She was then brought to the emergency department where several attempts at reduction were made and unsuccessful. She was then brought to the operating room to be placed under general anesthesia for closed reduction on 06/07/2021 which was successful. Time Spent with Patient Time attestation: Total time spent providing and/or coordinating discharge services: Discharge coordination time: Less than 30 minutes Quality: Stroke Does the patient have a stroke diagnosis?: No Physical Exam Vital Signs: Vital Signs: Last Vital Signs Temp 97.9 F 07/08/21 19:16 Pulse 98 07/08/21 19:16 Resp 15 07/08/21 19:16 BP 109/59 L 07/08/21 19:16 Pulse Ox 95 07/08/21 19:16 Oxygen Flow Rate 2 07/07/21 21:06 Body Mass Index 28.1 Const: General: cooperative, healthy appearing and no acute distress Resp: Effort & Inspection: normal respiratory effort and able to speak in complete sentences Cardio: Rate: regular rate Peripheral pulses: Peripheral pulses 2+ throughout GI: Palpation (GI): Soft to palpation Skin: Lesions: no lesions Rashes: no rashes Extrem: Other: Right hip prior incision is well approximated. No ecchymosis, erythema, or edema. Patient is able to dorsiflex and plantarflex without difficulties. NVI. DS: Data Data Completed and Pending Completed studies during hospitalization [Text1]: Procedures Insertion of Pacemaker Lead into Right Atrium, Percutaneous Approach (06/09/21) Insertion of Pacemaker Lead into Right Ventricle, Percutaneous Approach (06/09/21) Insertion of Pacemaker, Dual Chamber into Chest Subcutaneous Tissue and Fascia, Open Approach (06/09/21) Replacement of Right Hip Joint, Femoral Surface with Synthetic Substitute, Uncemented, Open Approach (06/09/21) Labs on day of discharge: Laboratory Results - last 24 hr 07/09/21 07/09/21 05:49 05:49 WBC 11.4 H RBC 3.63 L Hgb 10.4 L Hct 32.5 L MCV 89.5 MCH 28.7 MCHC 32.0 RDW 14.1 Plt Count 388 MPV 10.2 Immature Gran % (Auto) 0.5 H Neut % (Auto) 71.5 Lymph % (Auto) 18.8 L [place] % (Auto) 5.3 Eos % (Auto) 3.4 Baso % (Auto) 0.5 Lymph # (Auto) 2.2 [place] # (Auto) 0.6 Eos # (Auto) 0.4 Baso # (Auto) 0.1 Abs Immat Gran (auto) 0.06 H Absolute Neuts (auto) 8.2 Absolute Nucleated RBC 0.000 Nucleated RBC % (auto) 0.0 Sodium 139 Potassium 4.0 Chloride 104 Carbon Dioxide 27 Anion Gap 12 BUN 16 Creatinine 0.62 Estim Creat Clear Calc 92.7 Estimated GFR > 60 Random Glucose 92 Calcium 8.8 Discharge Plan Discharge Patient Disposition: [facility] Discharge Diagnosis: s/p closed enrique reduction right hip Referrals: Marry Campuzano MD [Primary Care Provider] - 1 Week Discharge Medications: Continued cholecalciferol (vitamin D3) 25 mcg (1,000 unit) capsule 25 mcg PO DAILY Qty: 90 RF: 3 folic acid 1 mg tablet 1 mg PO DAILY Qty: 90 RF: 3 levothyroxine 75 mcg tablet 75 mcg PO DAILY Qty: 90 RF: 3 Discharge Orders: Discharge Order (Routine); Ordered 07/09/21 Ordered By: Deanna Dorman Diet: regular diet Activity on Discharge: Use cane or walker Stand Alone Forms: Patient Portal Discharge page Care Plan Goals: restor fxn of right hip Health Concerns: none Plan of Treatment: Anterior hip precautions WBAT Wedge in place when non ambulatory Patient will f/u with orthopedics in 2 weeks Assessment: stable for d/c
[2021-07-09 07:51] VITALS: BP 112/73; PULSE 88; RESP 16; TEMP 36.3; O2SAT 98
[2021-07-09] MEDS: oxyCODONE HCl Immed Release 5 MG TABLET PO (07:58)
--- NOTE | 2021-07-09 08:44 | MHC.CM.PN ---
PT IS CLEARED TO [place] TODAY. PLAN IS FOR PT TO RETURN TO [facility] AND COMPLETE HER STR. [facility] IS CURRENTLY AWAITING AUTH FROM PTS INSURANCE COMPANY. S TRANSPORT IS BOOKED WILL CALL WITH [facility].
--- NOTE | 2021-07-09 10:33 | HO.POSTANES ---
Post Anesthesia Evaluation Post Anesthesia Evaluation Vital Signs: Vital Signs Temp Pulse Resp BP Pulse Ox 07/09/21 07:51 97.3 F 88 16 112/73 98 Anesthesia: General LMA Mental Status: Awake Pain Control: Satisfactory Nausea/Vomiting: None Hydration: Adequate Anesthesia-Related Issues: No Anes. Related Issues
--- NOTE | 2021-07-09 10:36 | HO.POSTANES ---
Post Anesthesia Evaluation Post Anesthesia Evaluation Vital Signs: Vital Signs Temp Pulse Resp BP Pulse Ox 07/09/21 07:51 97.3 F 88 16 112/73 98 Anesthesia: Monitored Mental Status: Awake Pain Control: Satisfactory Nausea/Vomiting: None Hydration: Adequate Anesthesia-Related Issues: No Anes. Related Issues
== END 2021-07-09 11:52 | disposition skilled nursing facility (03) | DRG 561 ==
LOC: HO.ED 21:48 → HO.EDOVER 22:00 → HO.S3 22:28
PROVIDERS: Orthopaedic Surgery; Admitting Provider Physician Assistant; Emergency Provider Internal Medicine; PCP Internal Medicine; Visit Provider Physician Assistant
PROC: 0SW9XJZ Revision of Synthetic Substitute in Right Hip Joint, External Approach (ICD-10-PCS; principal; 2021-07-08 10:00)
DX: T84.020A Dislocation of internal right hip prosthesis, initial encounter (principal); E03.9 Hypothyroidism, unspecified; F03.90 Unspecified dementia, unspecified severity, without behavioral disturbance, psychotic disturbance, mood disturbance, and anxiety; Z20.822 Contact with and (suspected) exposure to COVID-19; Z96.641 Presence of right artificial hip joint; F17.210 Nicotine dependence, cigarettes, uncomplicated; Z71.6 Tobacco abuse counseling; Z79.890 Hormone replacement therapy; Z79.899 Other long term (current) drug therapy
CPT/HCPCS: 36415; 73501; 73502; 80048; 85025; 87635; 97162; 99285; J2270; J2405; J3010

== ENCOUNTER 2021-07-20 13:10 | Inpatient (IN) | payer OTHER, SELFPAY ==
[2021-07-20] VITALS (12 sets, daily range): BP systolic 100–142; BP diastolic 48–82; PULSE 87–105; RESP 14–23; TEMP 36.6–36.8; O2SAT 95–100; BMI 29.0
--- NOTE | ~2021-07-20 | XR_ITS ---
EXAMINATION: XR HIP, RIGHT CLINICAL INFORMATION: Hip dislocation COMPARISON: Previous exam most recent 07/07/2021 TECHNIQUE: Two views of the right hip and one view of the pelvis. FINDINGS: The right hip prosthesis is dislocated superiorly, laterally and anteriorly with respect to the [place] acetabulum. No fracture is seen. Bones of the pelvis and left hip joint are unremarkable. There is an IUD in the pelvis. XR/XR hip RT w PEL1V IMPRESSION: Dislocated right hip prosthesis.
--- NOTE | ~2021-07-20 | FL_ITS ---
EXAMINATION: XR FLUOROSCOPY WITH IMAGES CLINICAL INFORMATION: Post closed reduction COMPARISON: Previous x-ray most recent from yesterday TECHNIQUE: Fluoroscopy performed by Dr. Earnest Zafar. Fluoroscopy time: 0.2 minutes DAP: 0.08 mGycm2 Images: 1 FINDINGS: There is normal alignment of the right hip prosthesis. No fracture is seen. FL/FL guidance in OR IMPRESSION: Normal right hip alignment.
--- NOTE | ~2021-07-20 | XR_ITS ---
EXAMINATION: XR PELVIS CLINICAL INFORMATION: Status post right hip arthroplasty COMPARISON: None TECHNIQUE: AP view of the pelvis. FINDINGS: The patient is status post right hip arthroplasty showing good anatomic alignment with no evidence for hardware malfunction. The bony pelvis and left hip are intact. An IUD is noted in place. XR/XR pelvis 1-2V IMPRESSION: Good anatomic alignment with no hardware abnormality.
--- NOTE | 2021-07-20 13:42 | ED.LOWEXIN ---
HPI - Extremity Injury (Lower) General Chief Complaint: Extremity Injury, Lower Stated Complaint: R HIP DISLOCATION,HX OF FALL 1 MONTH AGO Time Seen by Provider: 07/20/21 13:41 Source: family Mode of arrival: EMS Limitations: altered mental status History of Present Illness HPI Narrative: Patient had a fall and she dislocated her hip complaint: hip injury Onset (ago): hour(s) Injury: Right: hip Place: SNF Severity: mild Context: fall Related Data Home Medications Medication Instructions Recorded Confirmed acetaminophen 325 mg tablet 650 mg PO DAILY 07/20/21 07/20/21 acetaminophen 325 mg tablet 650 mg PO Q6H PRN 07/20/21 07/20/21 aspirin 325 mg tablet 325 mg PO BID 07/20/21 07/20/21 bisacodyl 10 mg rectal suppository 10 mg [place] DAILY PRN 07/20/21 07/20/21 (Dulcolax (bisacodyl)) docusate sodium 100 mg capsule 100 mg PO BID 07/20/21 07/20/21 magnesium hydroxide 400 mg/5 mL 30 ml PO BEDTIME PRN 07/20/21 07/20/21 oral suspension (Milk of Magnesia) sodium phosphates 19 gram-7 118 ml [place] BEDTIME PRN 07/20/21 07/20/21 gram/118 mL enema (Enema) Previous Rx's Medication Instructions Recorded cholecalciferol (vitamin D3) 25 25 mcg PO DAILY #90 cap 12/30/20 mcg (1,000 unit) capsule folic acid 1 mg tablet 1 mg PO DAILY #90 tab 12/30/20 levothyroxine 75 mcg tablet 75 mcg PO DAILY #90 tab 12/30/20 Allergies Allergy/AdvReac Type Severity Reaction Status Date / Time [place] nut Allergy Unknown Verified 07/20/21 13:30 lactose Allergy Diarrhea Verified 07/20/21 13:29 Review of Systems Constitutional: Constitutional: Reports no additional constitutional complaints Eyes: Eyes: Reports no additional eye complaints ENT: Denies dizziness Cardiovascular: Cardiovascular: Reports no additional cardiovascular complaints Respiratory: Respiratory: Reports as per HPI Gastrointestinal: Gastrointestinal: Reports no additional gastrointestinal complaints Genitourinary: Genitourinary: Reports no additional female genitourinary complaints Musculoskeletal: Musculoskeletal: Reports no additional musculoskeletal complaints Integumentary/Breasts: Skin/Breast: Denies rash Neurologic: Reports system reviewed and no additional complaints, except as documented and Denies dizziness Psychiatric: Psychiatric: Denies anxiety [facility] Past Medical History Medical History Balance disorder Closed dislocation of right hip Closed hip fracture Dementia Displaced fracture of right femoral neck Hip dislocation, right History of pacemaker Hypothyroidism Increased urinary frequency Lactose intolerance Left leg weakness Memory loss PTSD (post-traumatic stress disorder) Sinus arrest Sinus pause Symptomatic bradycardia Syncope Tobacco dependence Urinary incontinence Surgical History Hx of total hip arthroplasty No pertinent past surgical history Status post hip hemiarthroplasty Social History Social History Household Members: Spouse Housing: House Do you presently have visiting nurse or other home services: No (patient was at rehab following her hip surgery) Alcohol intake: current Alcohol intake frequency: does not drink Patient Tobacco Use Status: Former Tobacco user Tobacco use type: Cigarette Cigarettes Per Day: 8 Years Smoked: since teen years per pt e-Cigarette/Vaping Use: Never Used Second Hand Smoke Exposure: No Use of substances other than those prescribed or required for medical reasons: No Substance Use Type: Marijuana Advance Directives: No Advance Directives Information Provided: No service: No Current occupational status: disabled Current occupation: rt handed Physical Exam Vital Signs: Vital Signs: Last Vital Signs Temp 97.8 F 07/20/21 16:37 Pulse 102 H 07/20/21 20:09 Resp 18 07/20/21 20:09 BP 106/66 07/20/21 20:09 Pulse Ox 98 07/20/21 20:09 Oxygen Flow Rate 2 07/20/21 16:21 Body Mass Index 29.0 Const: Other: chronically ill female looking older than stated age Limitations: altered mental status HENMT: Head: Yes normal to inspection Ears: external ears normal General nose exam: Normal external nose present Mouth: Normal oral and palatal mucosa present and oropharynx normal Throat: Yes posterior oropharynx normal Eyes: General: appearance normal, both eyes and all related structures Neck: Other: supple Neck: Yes normal visual inspection Chest: Chest palpation & inspection: normal inspection of the chest Resp: Auscultation: clear to auscultation bilaterally Cardio: Jugular venous distension: no JVD Rate: regular rate Rhythm: regular rhythm Heart sounds: S1 normal heart sound present and S2 normal heart sound present GI: Inspection: Yes normal to inspection Palpation (GI): Soft to palpation, nontender and No hepatosplenomegaly present Auscultation: normal bowel sounds : General: Yes no CVA tenderness Back/Spine/Pelvis: Back: no CVA tenderness Skin: General skin exam: no rashes or lesions noted Neuro: Other: movement all extremities Cranial nerves: Yes CN's II-XII intact bilaterally Extrem: General: Yes normal to inspection Psych: Appearance: grossly normal Course Reevaluation(s) Reevaluation #1: Acetabular prosthesis and ball are dislocated Time: 14:36 Reevaluation #2: patient received propofol for conscious sedation, unable to reduce hip will admit Time: 16:31 MDM - Extremity Injury (Lower) Lab Data Result diagrams: 07/20/21 17:35 07/20/21 17:35 Labs: Lab Results 07/20/21 07/20/21 07/20/21 Range/Units 17:35 17:35 17:35 WBC 11.4 H (4.8-10.8) X10*3/uL RBC 4.29 (4.20-5.50) X10*6/uL Hgb 12.0 (12.0-16.0) g/dl Hct 37.7 (37-47) % MCV 87.9 (80-98) fL MCH 28.0 (27.0-33.0) pg MCHC 31.8 (31.0-35.0) g/dl RDW 14.3 (11.0-16.0) % Plt Count 551 H D (160-400) X10*3/uL MPV 9.7 (9.4-12.3) fL Immature Gran % (Auto) 0.4 (0.0-0.4) % Neut % (Auto) 64.5 (45-73) % Lymph % (Auto) 26.1 (20-40) % [place] % (Auto) 5.4 (2-11) % Eos % (Auto) 3.0 (0-4) % Baso % (Auto) 0.6 (0-2) % Lymph # (Auto) 3.0 (1.2-4.9) X10*3/uL [place] # (Auto) 0.6 (0.1-1.2) X10*3/uL Eos # (Auto) 0.3 (0.0-0.4) X10*3/uL Baso # (Auto) 0.1 (0.0-0.2) X10*3/uL Abs Immat Gran (auto) 0.05 H (0.00-0.03) X10*3/uL Absolute Neuts (auto) 7.4 (2.0-8.3) X10*3/uL Absolute Nucleated RBC 0.000 (0.0-0.012) X10*3/uL Nucleated RBC % (auto) 0.0 (0.0-0.2) /100WBC PT 11.3 (9.9-13.0) SEC INR 1.0 (0.9-1.1) APTT 30.1 (24.1-38.0) SEC Sodium 140 (135-145) mmol/L Potassium 4.3 (3.3-5.1) mmol/L Chloride 104 (96-108) mmol/L Carbon Dioxide 25 (22-29) mmol/L Anion Gap 15 (12-20) BUN 20 H (9-16) mg/dL Creatinine 0.64 (0.5-1.4) mg/dL Estim Creat Clear Calc 91.1 Estimated GFR > 60 Random Glucose 93 (60-115) mg/dL Calcium 9.9 D (8.4-10.2) mg/dL COVID-19 (BOB) (Negative) COVID-19 Clin Com 07/20/21 Range/Units 17:35 WBC (4.8-10.8) X10*3/uL RBC (4.20-5.50) X10*6/uL Hgb (12.0-16.0) g/dl Hct (37-47) % MCV (80-98) fL MCH (27.0-33.0) pg MCHC (31.0-35.0) g/dl RDW (11.0-16.0) % Plt Count (160-400) X10*3/uL MPV (9.4-12.3) fL Immature Gran % (Auto) (0.0-0.4) % Neut % (Auto) (45-73) % Lymph % (Auto) (20-40) % [place] % (Auto) (2-11) % Eos % (Auto) (0-4) % Baso % (Auto) (0-2) % Lymph # (Auto) (1.2-4.9) X10*3/uL [place] # (Auto) (0.1-1.2) X10*3/uL Eos # (Auto) (0.0-0.4) X10*3/uL Baso # (Auto) (0.0-0.2) X10*3/uL Abs Immat Gran (auto) (0.00-0.03) X10*3/uL Absolute Neuts (auto) (2.0-8.3) X10*3/uL Absolute Nucleated RBC (0.0-0.012) X10*3/uL Nucleated RBC % (auto) (0.0-0.2) /100WBC PT (9.9-13.0) SEC INR (0.9-1.1) APTT (24.1-38.0) SEC Sodium (135-145) mmol/L Potassium (3.3-5.1) mmol/L Chloride (96-108) mmol/L Carbon Dioxide (22-29) mmol/L Anion Gap (12-20) BUN (9-16) mg/dL Creatinine (0.5-1.4) mg/dL Estim Creat Clear Calc Estimated GFR Random Glucose (60-115) mg/dL Calcium (8.4-10.2) mg/dL COVID-19 (BOB) Negative (Negative) COVID-19 Clin Com See Note Discharge Plan Discharge Clinical Impression: Dislocation, hip closed Qualifiers: Encounter type: subsequent encounter Laterality: right Qualified Code(s): S73.004D - Unspecified dislocation of right hip, subsequent encounter Patient Disposition: Admitted As Inpatient
[2021-07-20] MEDS: propofoL 200 MG/20 ML VIAL 40 MG IVPUSH (16:10)
--- NOTE | 2021-07-20 16:34 | ECG_ITS ---
Test Reason : EXTREMITY INJURY Blood Pressure : / mmHG Vent. Rate : 090 BPM Atrial Rate : 090 BPM P-R Int : 154 ms QRS Dur : 082 ms QT Int : 376 ms P-R-T Axes : 054 -10 031 degrees QTc Int : 459 ms Normal sinus rhythm Cannot rule out Inferior infarct , age undetermined Abnormal ECG When compared with ECG of 10-JUN-2021 15:56, Minimal criteria for Inferior infarct are now Present Referred By: Gibran Johnson Electronically Signed By:ANGELLA LUCAS
--- NOTE | 2021-07-20 16:40 | PC.NURSE ---
dr bowers and lexie west unable to get the right hip back in place, plan to go to surgery
--- NOTE | 2021-07-20 16:58 | PM.HPOR ---
History of Present Illness History of Present Illness Date of Service: 07/20/21 Chief complaint: R HIP DISLOCATION,HX OF FALL 1 MONTH AGO Narrative: Gonzalez Santiago is a 56 year old female who presents to the ED after sustaining a mechanical fall earlier today. She is unable to recall the events surrounding the fall due to her baseline of dementia. She is s/p right hip hemiarthroplasty with Dr. Madden on 06/10/21. She sustained her first dislocation on 07/07/21 in which attempts in the ED for reduction failed and ultimately lead to the patient being admitted and brought to the OR for a successful closed reduction under anesthesia. X-rays obtained in the ED after todays fall reveals a dislocation of the right hip hemiarthroplasty. The ED made attemps to reduce under conscious sedation but were unsuccessful. The orthopedic team was the consulted for further evaluation and treatment. Review of Systems Review of Systems: Yes all other systems are reviewed and are negative PMFSH Past Medical History Medical History Balance disorder Closed dislocation of right hip Closed hip fracture Dementia Displaced fracture of right femoral neck Hip dislocation, right History of pacemaker Hypothyroidism Increased urinary frequency Lactose intolerance Left leg weakness Memory loss PTSD (post-traumatic stress disorder) Sinus arrest Sinus pause Symptomatic bradycardia Syncope Tobacco dependence Urinary incontinence Surgical History Surgical History Hx of total hip arthroplasty No pertinent past surgical history Status post hip hemiarthroplasty Social History Social History Household Members: Spouse Housing: House Do you presently have visiting nurse or other home services: No (patient was at rehab following her hip surgery) Alcohol intake: current Alcohol intake frequency: does not drink Patient Tobacco Use Status: Former Tobacco user Tobacco use type: Cigarette Cigarettes Per Day: 8 Years Smoked: since teen years per pt e-Cigarette/Vaping Use: Never Used Second Hand Smoke Exposure: No Use of substances other than those prescribed or required for medical reasons: No Substance Use Type: Marijuana Advance Directives: No Advance Directives Information Provided: No service: No Current occupational status: disabled Current occupation: rt handed Meds Allergies Allergy/AdvReac Type Severity Reaction Status Date / Time [place] nut Allergy Unknown Verified 07/20/21 13:30 lactose Allergy Diarrhea Verified 07/20/21 13:29 Active Medications: Current Medications Generic Name Dose Route Start Last Admin Trade Name Jenifer PRN Reason Stop Dose Admin Pharmacy Consult 1 each 07/20/21 16:36 Consult Rx Perform Med Rec MISCELLANE ONCE PRN Consult order Home Medications Medication Instructions Recorded Confirmed Last Taken Type acetaminophen 325 mg tablet 650 mg PO DAILY 07/20/21 07/20/21 Unknown History acetaminophen 325 mg tablet 650 mg PO Q6H PRN 07/20/21 07/20/21 Unknown History aspirin 325 mg tablet 325 mg PO BID 07/20/21 07/20/21 Unknown History bisacodyl 10 mg rectal suppository 10 mg FL DAILY PRN 07/20/21 07/20/21 Unknown History (Dulcolax (bisacodyl)) docusate sodium 100 mg capsule 100 mg PO BID 07/20/21 07/20/21 Unknown History magnesium hydroxide 400 mg/5 mL 30 ml PO BEDTIME PRN 07/20/21 07/20/21 Unknown History oral suspension (Milk of Magnesia) sodium phosphates 19 gram-7 118 ml FL BEDTIME PRN 07/20/21 07/20/21 Unknown History gram/118 mL enema (Enema) Physical Exam Vital Signs: Vital Signs: Last Vital Signs Temp 97.8 F 07/20/21 16:37 Pulse 92 07/20/21 16:41 Resp 18 07/20/21 16:41 BP 100/53 L 07/20/21 16:41 Pulse Ox 97 07/20/21 16:41 Oxygen Flow Rate 2 07/20/21 16:21 Body Mass Index 29.0 Const: General: cooperative, healthy appearing and no acute distress Resp: Effort & Inspection: normal respiratory effort and able to speak in complete sentences Cardio: Rate: regular rate Peripheral pulses: Peripheral pulses 2+ throughout GI: Palpation (GI): Soft to palpation Skin: Lesions: no lesions Rashes: no rashes Extrem: Other: Right lower extremity is shortened and externally rotated. The prior incision site is well approximated with no ecchymosis, redness, or drainage. Skin is intact. Patient is able to dorsiflex and plantarflex. Sensation intact. Pedal pulse intact. Results Labs Result Diagrams: 07/20/21 17:35 07/20/21 17:35 Labs: All other labs normal. Assessment and Plan (1) Dislocation, hip closed: Qualifiers: Encounter type: subsequent encounter Laterality: right Qualified Code(s): S73.004D - Unspecified dislocation of right hip, subsequent encounter Status: Acute Ms. Santiago is a 56 yo female who presents to the ED today after sustaining a mechanical fall. Patient is s/p right hip hemiarthroplasty on 06/10/[address] Madden. The patient presented to the ED on 07/06/21 for a right hip hemiarthroplasty dislocation. The patient was brought to the OR the following day for a successful closed reduction. X-rays obtained today in the ED reveal a dislocation of the right hip hemiarthroplasty. The ED made multiple attempts to reduce under conscious sedation but was unsuccessful. The orthopedic team was then consulted for further evaluation and treatment and then admitted to the orthopedic service. I discussed the case with Dr. Zafar and the patient significant other Christiano. I explained the extent of the injury to the patient and Christiano as well as the options available which include closed reduction under anesthesia. I explained the procedure in detail along with the length of recovery and rehab course. I explained the risk, benefits and alternatives. Risk including, but not limited to nerve/tissue damage to surrounding areas. I answered all their questions and with their understanding they have consented to move forward with a closed reduction under anesthesia. Med clearance obtained and the patient will be NPO after midnight. Quality Stroke Does the patient have a stroke diagnosis?: No VTE Prior VTE?: No VTE Risk Level:: Medical - low VTE Device Contraindication: N/A - Device Ordered VTE Drug Contraindication: N/A - Med Ordered Procedures Date of Service Date of Service: 07/20/21
--- NOTE | 2021-07-20 17:20 | PHA.MEDREC ---
Pharmacy Consult ? Medication Reconciliation Pharmacy has completed the medication reconciliation. PT FROM [facility].
[2021-07-20 17:43] LABS: MANUAL DIFF FLAG NO
[2021-07-20 17:52] LABS: Prothrombin Time 11.3 SEC (9.9-13.0)
[2021-07-20 17:55] LABS: Partial Thromboplastin Time 30.1 SEC (24.1-38.0)
[2021-07-20 17:56] LABS: Basophils Absolute Auto 0.1 X10*3/uL (0.0-0.2); Basophils Percent Auto 0.6 % (0-2); Eosinophils Absolute Auto 0.3 X10*3/uL (0.0-0.4); Hematocrit 37.7 % (37-47); Imm Gran Abs Auto 0.05 X10*3/uL (0.00-0.03); Imm Gran Pct Auto 0.4 % (0.0-0.4); Lymphocytes Percent Auto 26.1 % (20-40); Mean Corpuscular HGB Conc 31.8 g/dl (31.0-35.0); Mean Corpuscular Volume 87.9 fL (80-98); Mean Platelet Volume 9.7 fL (9.4-12.3); Monocytes Absolute Auto 0.6 X10*3/uL (0.1-1.2); Monocytes Percent Auto 5.4 % (2-11); Neutrophils Absolute Auto 7.4 X10*3/uL (2.0-8.3); Neutrophils Percent Auto 64.5 % (45-73); Red Blood Count 4.29 X10*6/uL (4.20-5.50); Red Cell Distribution Width 14.3 % (11.0-16.0); White Blood Count 11.4 X10*3/uL (4.8-10.8)
[2021-07-20 17:58] LABS: COVID-19 Test Negative (Negative); IDNOW Serial# 08D9AD1C; Platelet Count 551 X10*3/uL (160-400)
[2021-07-20 18:04] LABS: Anion Gap 15 (12-20); Blood Urea Nitrogen 20 mg/dL (9-16); Calcium 9.9 mg/dL (8.4-10.2); Carbon Dioxide 25 mmol/L (22-29); Chloride 104 mmol/L (96-108); Creatinine Clr Calc Pharmacy 91.1; Estimated Glomerular Filt Rate > 60; Glucose Random 93 mg/dL (60-115); Potassium 4.3 mmol/L (3.3-5.1); Sodium 140 mmol/L (135-145)
--- NOTE | 2021-07-20 18:46 | PC.NURSE ---
pt is currently resting comfortably, vs stable pt is awaiting room assignment
[2021-07-20] MEDS: Dextrose 5 % and 0.45 % NaCl 1,000 ML 80 ML IVCONT (20:06)
--- NOTE | 2021-07-20 23:07 | MHC.CM.PN ---
CM met with admitted patient with room assignment pending. Pt has dementia and requested that CM speak with . [facility] reviewed with /HCP Christiano Krause. Copy left at bedside. Christiano will be in tomorrow. Requests to meet with CM. Pt and do not want to return to [facility]. Christiano feels his is treated poorly and is upset that she has fallen twice and has had 2 hip dislocations while she has been there. Pt has R hip arthroplasty on 06/10. Pt went to [facility] for STR. Returned to [facility] [place]07 with r hip dislocation requiring closed reduction under anesthesia. Pt returned to [facility] today with same problem, hip hip dislocation needing closed reduction under anesthesia. Christiano is also concerned that his be close to him, in walking or bus distance, as he must visit daily, as his has dementia. is unwilling to entertain thought of another skilled nursing placement for STR. CM spoke with at length regarding STR vs home therapy, and possibly using another facility. would like pt to have home PT. Pt would also like home PT and does not want to return to [facility]. Pt lives with her . She has dementia. She is wheelchair bound and uses a walker and gait belt for transfers. Pt has a [employer] [facility]75hrs[facility]. Pt and live in a handicapped apartment. uses motorized wheelchair secondary to back pain, but states he helps her with transfers. Will re-assess PT tomorrow. Pt may need another PT evaluation while hospitalized. Pt has [employer] insurance. D/C plan at this time is home with PT/OT/VNA. Pt will need transportation home. CM to follow for d/c needs.
[2021-07-21] VITALS (18 sets, daily range): BP systolic 94–123; BP diastolic 54–73; PULSE 74–107; RESP 14–20; TEMP 36–36.9; O2SAT 93–99
[2021-07-21] MEDS: Dextrose 5 % and 0.45 % NaCl 1,000 ML 80 ML IVCONT (05:52)
--- NOTE | 2021-07-21 10:02 | P.CONAN_ITS ---
HPI - Anesthesia Eval Consult details Narrative: 56 yo femake patient forclosed reduction of dislocated Right hip hemiarthroplasty PMFSH Active Problems Active Problems: All Active Problems (Updated 07/20/21 @ 14:39 by Gibran Johnson MD) Abnormal urine odor (Acute) Abnormal EKG (Acute) Pacemaker (Acute) Visit for wound check (Acute) Dislocation, hip closed (Acute) Sinus pause (Acute) Past Medical History Medical History Balance disorder Closed dislocation of right hip Closed hip fracture Dementia Displaced fracture of right femoral neck Hip dislocation, right History of pacemaker Hypothyroidism Increased urinary frequency Lactose intolerance Left leg weakness Memory loss PTSD (post-traumatic stress disorder) Sinus arrest Sinus pause Symptomatic bradycardia Syncope Tobacco dependence Urinary incontinence Family History Family history of problems with anesthesia: No Surgical History Surgical History Hx of total hip arthroplasty No pertinent past surgical history Status post hip hemiarthroplasty History of Problems with Anesthesia: No Social History Social History Household Members: Spouse Housing: Senior Care Do you presently have visiting nurse or other home services: No (patient was at rehab following her hip surgery) Unable to assess alcohol history related to: Unknown Alcohol intake: current Alcohol intake frequency: does not drink Patient Tobacco Use Status: Current someday Tobacco user Tobacco use type: Cigarette Cigarettes Per Day: 8 Years Smoked: since teen years per pt e-Cigarette/Vaping Use: Never Used Second Hand Smoke Exposure: No Substance Use Type: Marijuana service: No Current occupational status: disabled Current occupation: rt handed Meds Allergies Allergy/AdvReac Type Severity Reaction Status Date / Time [place] nut Allergy Unknown Verified 07/20/21 13:30 lactose Allergy Diarrhea Verified 07/20/21 13:29 Active Medications: Current Medications Generic Name Dose Route Start Last Admin Trade Name Freq PRN Reason Stop Dose Admin Acetaminophen 650 mg 07/20/21 19:35 Acetaminophen 325 Mg Tablet PO Q6H PRN Pain, Mild (Pain Scale 1-3) Dextrose/Sodium Chloride 1,000 mls @ 80 mls/hr 07/20/21 19:35 07/21/21 05:52 D51/2ns IVCONT 80 mls/hr .[id number] JOMAR Administration Ondansetron HCl 4 mg 07/20/21 19:35 Ondansetron Hcl 4 Mg/2 Ml Vial IVPUSH Q8H PRN Nausea and Vomiting Oxycodone HCl 5 mg 07/20/21 19:35 Oxycodone Hcl Immed Release 5 Mg Tablet PO Q4H PRN Pain, Moderate (Pain Scale 4-6 Pharmacy Consult 1 each 07/20/21 16:36 Consult Rx Perform Med Rec MISCELLANE ONCE PRN Consult order Sodium Chloride 3 ml 07/21/21 00:00 07/21/21 09:08 0.9 % Sodium Chloride Flush 3 Ml Syringe IVFLUSH Not Given QSHIFT [facility] Home Medications Medication Instructions Recorded Confirmed Last Taken Type acetaminophen 325 mg tablet 650 mg PO DAILY 07/20/21 07/20/21 Unknown History acetaminophen 325 mg tablet 650 mg PO Q6H PRN 07/20/21 07/20/21 Unknown History aspirin 325 mg tablet 325 mg PO BID 07/20/21 07/20/21 Unknown History bisacodyl 10 mg rectal suppository 10 mg [place] DAILY PRN 07/20/21 07/20/21 Unknown History (Dulcolax (bisacodyl)) docusate sodium 100 mg capsule 100 mg PO BID 07/20/21 07/20/21 Unknown History magnesium hydroxide 400 mg/5 mL 30 ml PO BEDTIME PRN 07/20/21 07/20/21 Unknown History oral suspension (Milk of Magnesia) sodium phosphates 19 gram-7 118 ml DE BEDTIME PRN 07/20/21 07/20/21 Unknown History gram/118 mL enema (Enema) Exam Exam Date and Time: July 21, 2021 1002 Height,Weight and Vital Signs: Height 5 ft 2 in Weight 71.9 kg Last Vital Signs Temp 97.8 F 07/21/21 09:08 Pulse 88 07/21/21 09:08 Resp 18 07/21/21 09:08 BP 109/54 L 07/21/21 09:08 Pulse Ox 97 07/21/21 09:08 Oxygen Flow Rate 2 07/20/21 16:21 Pertinent Lab Results Pertinent Lab Results: Laboratory Tests 07/20/21 07/20/21 07/20/21 17:35 17:35 17:35 WBC 11.4 H RBC 4.29 Hgb 12.0 Hct 37.7 MCV 87.9 MCH 28.0 MCHC 31.8 RDW 14.3 Plt Count 551 H D MPV 9.7 Immature Gran % (Auto) 0.4 Neut % (Auto) 64.5 Lymph % (Auto) 26.1 [place] % (Auto) 5.4 Eos % (Auto) 3.0 Baso % (Auto) 0.6 Lymph # (Auto) 3.0 [place] # (Auto) 0.6 Eos # (Auto) 0.3 Baso # (Auto) 0.1 Abs Immat Gran (auto) 0.05 H Absolute Neuts (auto) 7.4 Absolute Nucleated RBC 0.000 Nucleated RBC % (auto) 0.0 PT 11.3 INR 1.0 APTT 30.1 Sodium 140 Potassium 4.3 Chloride 104 Carbon Dioxide 25 Anion Gap 15 BUN 20 H Creatinine 0.64 Estim Creat Clear Calc 91.1 Estimated GFR > 60 Random Glucose 93 Calcium 9.9 D COVID-19 (BOB) COVID-19 Clin Com 07/20/21 17:35 WBC RBC Hgb Hct MCV MCH MCHC RDW Plt Count MPV Immature Gran % (Auto) Neut % (Auto) Lymph % (Auto) [place] % (Auto) Eos % (Auto) Baso % (Auto) Lymph # (Auto) [place] # (Auto) Eos # (Auto) Baso # (Auto) Abs Immat Gran (auto) Absolute Neuts (auto) Absolute Nucleated RBC Nucleated RBC % (auto) PT INR APTT Sodium Potassium Chloride Carbon Dioxide Anion Gap BUN Creatinine Estim Creat Clear Calc Estimated GFR Random Glucose Calcium COVID-19 (BOB) Negative COVID-19 Clin Com See Note Airway Mallampati Class: II TM Dist: >3cm Neck ROM: Full Loose/Missing/Broken Teeth: Yes (Many missing and broken) Heart: RRR Lungs: CTAB Assessment and Plan Assessment Anesthesia Assessment: Anesthesia Plan Discussed and Chart Reviewed Final Anesthetic Review Family History of Problems with Anesthesia: No History of Problems with Anesthesia: No NPO: Yes ASA Class: III Final Preanesthetic Review: No Changes in Pt Med Stat, Meds/Allgs Chart Reviewed, Consent Obtained/Reviewed and Anes Risks/Benef Reviewed Patient Risk: Intermediate Procedure Risk: Low Assessment/Block/Sedation in SS: Assess/Block/Sedation-SS Anesthetic Plan Anesthetic Plan: GA Disposition: Standard PACU and Inp. Admit - Standard Bed
--- NOTE | 2021-07-21 10:04 | MHC.SHP ---
Pre-Procedural Eval Section A Date of Service: 07/21/21 The patient is an INPATIENT: Yes Changes since office visit: Yes Patient answered all questions; No Cold of Flu in the past 2 weeks, No New Medical Problems and No Changes in Medication The History & Physical has been completed within 30 days and I have reviewed it.: Yes Section B Chief Complaint: Left distal femur fracture Allergies: Allergies Allergy/AdvReac Type Severity Reaction Status Date / Time [place] nut Allergy Unknown Verified 07/20/21 13:30 lactose Allergy Diarrhea Verified 07/20/21 13:29 Plan I have reviewed the history and physical and performed a pertinent physical examination on my patient. No changes have occurred unless specified.
--- NOTE | 2021-07-21 11:46 | PM.OP ---
Brief Operative Note Date of Service: 07/21/21 Pre-op diagnosis: dislocated right hip prosthesis Post-op diagnosis: same Procedure: open reduction right hip prosthesis Implants: none Surgeon: Earnest Zafar MD Anesthesia: GETA and local Was an Virtual Reality Specialist used for this Procedure?: Yes Virtual Reality Specialist: Deanna Dorman Estimated blood loss (mL): 100 IV fluids (mL): 800 Pathology: none sent Condition: stable Disposition: PACU
--- NOTE | 2021-07-21 11:48 | W.PM.OPN ---
Operative Note Operative Note Date of Service: 07/21/21 Narrative: Procedure in detail: Patient brought the operating room and placed supine on the operative table. A time-out was called to identify proper site, proper procedure, proper surgeon. I began by applying axial traction to the affected limb. The right lower extremity was externally rotated and variations in reduction techniques all proved futile. A C-arm was brought and and I could not get the head down enough to reduce the hip so I elected to proceed forward with the open reduction. I spoke with the who verbally consented for open procedure and the patient was prepped and draped in standard sterile fashion. A 4 cm incision was made over the prior incision and old hematoma was immediately expressed. The tensor fascia had been traumatically dehisced from the prior dislocations and the dislocated hip was clearly visible. There was a area of fibrous tissue that appeared to be preventing relocation. With a combination of traction and digital manipulation I was able to reduce the hip. I took the hip through range of motion and appeared stable. Confirmation radiographs was obtained. I then irrigated copiously and performed iodine soak and then closed the tensor fascia, Anette's fascia and subQ with absorbable suture and the skin with bria. Patient was placed in sterile dressing and a knee immobilizer, extubated brought to recovery room in stable condition. There were no known complications.
[2021-07-21] MEDS: oxyCODONE HCl Immed Release 5 MG TABLET PO ×2 (12:04→14:01)
[2021-07-21] MEDS: Acetaminophen 325 MG TABLET 650 MG PO (12:05)
[2021-07-21] MEDS: fentaNYL citrate/PF 100 MCG/2 ML VIAL 25 MCG IVPUSH ×4 (12:25→12:40)
[2021-07-21] MEDS: Lactated Ringers 1,000 ML 100 ML IVCONT (14:01)
--- NOTE | 2021-07-21 15:29 | PM.IMCN ---
History of Present Illness Data of Consult Service Date: 07/21/21 Primary Care Provider: Marry Campuzano MD HPI Reason for consult: Medical Management This is a 56 yo F with a PMH of Dementia, Hypothyroidism, tobacco use, heart block s/p PPM, Hip Fx in May 2020 who is admitted for the second time in as many weeks for a dislocated hip prosthesis. The patient underwent successul R hip fx repair on 06/10/21. On 07/08/21 she was admitted s/p a fall and resultant hip dislocation which required OR reduction. She is now again presenting after what appears to be a fall resulting in a hip dislocation. There are no reports on syncope and the patient's dementia is a limiting factor in her history. Medical consultation has been requested for management of her medical issues. The patient is seen and examined post-op in her room on [facility] [place] [facility]. Her is bedside. The patient reports no complaints at this time. She denies any hip pain. No sob/cough/chest pain/abdominal pain/nausea/vomiting/diarrhea. Review of Systems Review of Systems: General - no fevers or chills Cardiovascular - no chest pain Respiratory - no shortness of breath or cough Abdominal- no abdominal pain, nausea, vomiting, diarrhea Yes all other systems are reviewed and are negative [facility] Medical History Balance disorder Closed dislocation of right hip Closed hip fracture Dementia Displaced fracture of right femoral neck Hip dislocation, right History of pacemaker Hypothyroidism Increased urinary frequency Lactose intolerance Left leg weakness Memory loss PTSD (post-traumatic stress disorder) Sinus arrest Sinus pause Symptomatic bradycardia Syncope Tobacco dependence Urinary incontinence Surgical History Hx of total hip arthroplasty No pertinent past surgical history Status post hip hemiarthroplasty Social History Household Members: Spouse Housing: Intermediate Do you presently have visiting nurse or other home services: No (patient was at rehab following her hip surgery) Unable to assess alcohol history related to: Unknown Alcohol intake: current Alcohol intake frequency: does not drink Patient Tobacco Use Status: Current someday Tobacco user Tobacco use type: Cigarette Cigarettes Per Day: 8 Years Smoked: since teen years per pt e-Cigarette/Vaping Use: Never Used Second Hand Smoke Exposure: No Substance Use Type: Marijuana service: No Current occupational status: disabled Current occupation: rt handed Meds Allergies Allergy/AdvReac Type Severity Reaction Status Date / Time [place] nut Allergy Unknown Verified 07/20/21 13:30 lactose Allergy Diarrhea Verified 07/20/21 13:29 Active Medications: Current Medications Generic Name Dose Route Start Last Admin Trade Name Freq PRN Reason Stop Dose Admin Acetaminophen 650 mg 07/20/21 19:35 07/21/21 12:05 Acetaminophen 325 Mg Tablet PO 650 mg Q6H PRN Administration Pain, Mild (Pain Scale 1-3) Fentanyl 25 mcg 07/21/21 12:09 07/21/21 12:40 Fentanyl Citrate/Pf 100 Mcg/2 Ml Vial IVPUSH 25 mcg Q5M PRN Administration Pain, Moderate (Pain Scale 4-6 Protocol Dextrose/Sodium Chloride 1,000 mls @ 80 mls/hr 07/20/21 19:35 07/21/21 05:52 D51/2ns IVCONT 80 mls/hr .[id number] JOMAR Administration Cefazolin Sodium/Dextrose 2 gm in 50 mls @ 100 mls/hr 07/21/21 16:45 Ancef IV 07/21/21 17:14 POSTOP ONE Lactated Ringer's 1,000 mls @ 100 mls/hr 07/21/21 12:15 07/21/21 14:01 Lr IVCONT 100 mls/hr .Q10H JOMAR Administration Promethazine HCl 6.25 mg/ 50.25 mls @ 201 mls/hr 07/21/21 12:11 Sodium Chloride IV ONCE PRN Nausea and Vomiting Ondansetron HCl 4 mg 07/20/21 19:35 Ondansetron Hcl 4 Mg/2 Ml Vial IVPUSH Q8H PRN Nausea and Vomiting Oxycodone HCl 5 mg 07/20/21 19:35 07/21/21 14:01 Oxycodone Hcl Immed Release 5 Mg Tablet PO 5 mg Q4H PRN Administration Pain, Moderate (Pain Scale 4-6 Pharmacy Consult 1 each 07/20/21 16:36 Consult Rx Perform Med Rec MISCELLANE ONCE PRN Consult order Sodium Chloride 3 ml 07/21/21 00:00 07/21/21 09:08 0.9 % Sodium Chloride Flush 3 Ml Syringe IVFLUSH Not Given QSHIFT [facility] Home Medications Medication Instructions Recorded Confirmed Last Taken Type acetaminophen 325 mg tablet 650 mg PO DAILY 07/20/21 07/20/21 Unknown History acetaminophen 325 mg tablet 650 mg PO Q6H PRN 07/20/21 07/20/21 Unknown History aspirin 325 mg tablet 325 mg PO BID 07/20/21 07/20/21 Unknown History bisacodyl 10 mg rectal suppository 10 mg RI DAILY PRN 07/20/21 07/20/21 Unknown History (Dulcolax (bisacodyl)) docusate sodium 100 mg capsule 100 mg PO BID 07/20/21 07/20/21 Unknown History magnesium hydroxide 400 mg/5 mL 30 ml PO BEDTIME PRN 07/20/21 07/20/21 Unknown History oral suspension (Milk of Magnesia) sodium phosphates 19 gram-7 118 ml RI BEDTIME PRN 07/20/21 07/20/21 Unknown History gram/118 mL enema (Enema) Physical Exam Vital Signs and Narrative: Vital Signs: Last Vital Signs Temp 96.9 F 07/21/21 15:11 Pulse 87 07/21/21 15:11 Resp 20 07/21/21 15:11 BP 94/58 L 07/21/21 15:11 Pulse Ox 96 07/21/21 15:11 Oxygen Flow Rate 2 07/20/21 16:21 Body Mass Index 29.0 Const: Other: General - no acute distress, appears comfortable Cardiovascular - regular rate and rhythm, S1-S2 Lungs - normal respiratory effort, clear to auscultation bilaterally, no wheezing Abdomen - soft, nontender, no rebound or guarding Extremities - no edema bilaterally Neuro - awake and alert, no focal deficits, oriented to self and Results Labs CBC and Chem 7: 07/20/21 17:35 07/20/21 17:35 Labs: Laboratory Results - last 24 hr 07/20/21 07/20/21 07/20/21 17:35 17:35 17:35 MCV 87.9 MCH 28.0 MCHC 31.8 RDW 14.3 Plt Count 551 H D MPV 9.7 Immature Gran % (Auto) 0.4 Neut % (Auto) 64.5 Lymph % (Auto) 26.1 [place] % (Auto) 5.4 Eos % (Auto) 3.0 Baso % (Auto) 0.6 Lymph # (Auto) 3.0 [place] # (Auto) 0.6 Eos # (Auto) 0.3 Baso # (Auto) 0.1 Abs Immat Gran (auto) 0.05 H Absolute Neuts (auto) 7.4 Absolute Nucleated RBC 0.000 Nucleated RBC % (auto) 0.0 PT 11.3 INR 1.0 APTT 30.1 Anion Gap 15 Estim Creat Clear Calc 91.1 Estimated GFR > 60 Random Glucose 93 Calcium 9.9 D COVID-19 (BOB) COVID-19 Clin Com 07/20/21 17:35 MCV MCH MCHC RDW Plt Count MPV Immature Gran % (Auto) Neut % (Auto) Lymph % (Auto) [place] % (Auto) Eos % (Auto) Baso % (Auto) Lymph # (Auto) [place] # (Auto) Eos # (Auto) Baso # (Auto) Abs Immat Gran (auto) Absolute Neuts (auto) Absolute Nucleated RBC Nucleated RBC % (auto) PT INR APTT Anion Gap Estim Creat Clear Calc Estimated GFR Random Glucose Calcium COVID-19 (BOB) Negative COVID-19 Clin Com See Note Imaging Radiologist's Impressions: Impressions Guidance Fluoroscopy 07/21/21 09:37 IMPRESSION: Normal right hip alignment. Assessment and Plan (1) Dislocation, hip closed: Qualifiers: Encounter type: subsequent encounter Laterality: right Qualified Code(s): S73.004D - Unspecified dislocation of right hip, subsequent encounter Status: Acute This is a 56 yo F who sustained a mechanical fall in May 2021 and underwent a successful operative repair. She has since then, had 2 further mechanical falls resulting in hip dislocation, with both requiring OR reduction. She is now POD #0 from the second OR reduction. Medical services consulted for management of her medical issues. 1. Hypothyroidism continue synthroid 2. Mild Hypotension (94/58 this afternoon) -- no symptoms post-operatively continue LR @ 100 cc/hr no evidence or concern for sepsis as this time 3. Dementia without behavioral disturbances continue to use non-pharmacological methods as much as possible 4. Heart-block s/p PPM no active issues will add telemetry Will follow up tomorrow.
[2021-07-21] MEDS: oxyCODONE HCl Immed Release 5 MG TABLET 10 MG PO ×2 (18:24→22:44)
[2021-07-21] MEDS: ceFAZolin Sodium/Dextrose,Iso 2 GM/50 ML PIGGYBACK IV (19:46)
[2021-07-21] MEDS: HYDROmorphone HCl 1 MG/ML SYRINGE 0.25 MG IVPUSH (20:07)
[2021-07-22] MEDS: Lactated Ringers 1,000 ML 100 ML IVCONT (02:15)
[2021-07-22 02:33] VITALS: RESP 16
[2021-07-22] MEDS: HYDROmorphone HCl 1 MG/ML SYRINGE 0.25 MG IVPUSH ×2 (02:33→09:30)
[2021-07-22 03:59] VITALS: BP 116/57; PULSE 93; RESP 12; TEMP 37; O2SAT 94
[2021-07-22 08:00] VITALS: BP 103/59; PULSE 94; RESP 18; TEMP 36.4; O2SAT 97
--- NOTE | 2021-07-22 08:57 | P.DS_ITS ---
DS: Providers Provider Date of Service: 07/22/21 Date of admission: 07/20/21 23:43 Primary care physician: Marry Campuzano MD Consults: 07/20/21 19:35 Consult to Hospitalist Routine Consulting Provider: Hospitalist Reason For Exam: Routine Medical Management DS: Diagnosis Discharge Diagnosis (1) Dislocation, hip closed: Status: Acute DS: Summary Hospital Course Hospital Course: Ms. Santiago is a 56 yo female who is s/p right hip hemiarthroplasty with Dr. Louis on 06/10/21. She has had one prior dislocation that was reduced under anesthesia on 07/07/21. She presented to the ED with complaints of right hip pain. X-rays obtained in the ED revealed an anterior right hip hemiarthroplasty dislocation. Multiple attempts of reduction in the ER were made and were unsuccessful. Therefore, the patient was admitted to the orthopedic service and taken to the operating room for open reduction under anesthesia which was successful on 07/21/2021. The patient was placed a knee immobilizer after reduction. Postop day 1 the patient was afebrile at 97.6?. Time Spent with Patient Time attestation: Total time spent providing and/or coordinating discharge services: Discharge coordination time: Less than 30 minutes Quality: Stroke Does the patient have a stroke diagnosis?: No Physical Exam Vital Signs: Vital Signs: Last Vital Signs Temp 97.6 F 07/22/21 08:00 Pulse 94 07/22/21 08:00 Resp 18 07/22/21 08:00 BP 103/59 L 07/22/21 08:00 Pulse Ox 97 07/22/21 08:00 Oxygen Flow Rate 2 07/20/21 16:21 Body Mass Index 29.0 Const: General: cooperative, healthy appearing and no acute distress Resp: Effort & Inspection: normal respiratory effort and able to speak in complete sentences Cardio: Rate: regular rate Peripheral pulses: Peripheral pulses 2+ throug hout GI: Palpation (GI): Soft to palpation Skin: Lesions: no lesions Rashes: no rashes Extrem: Other: Incision site is well approximated with no ecchymosis, redness, or drainage. Aquacel dressing is intact. Patient is able to dorsiflex and plantarflex. Sensation intact. Pedal pulse intact. DS: Data Data Completed and Pending Completed studies during hospitalization [Text1]: Procedures Insertion of Pacemaker Lead into Right Atrium, Percutaneous Approach (06/09/21) Insertion of Pacemaker Lead into Right Ventricle, Percutaneous Approach (06/09/21) Insertion of Pacemaker, Dual Chamber into Chest Subcutaneous Tissue and Fascia, Open Approach (06/09/21) Replacement of Right Hip Joint, Femoral Surface with Synthetic Substitute, Uncemented, Open Approach (06/09/21) Revision of Synthetic Substitute in Right Hip Joint, External Approach (07/07/21) Discharge Plan Discharge Patient Disposition: Home Health Service Discharge Diagnosis: s/p right enrique dislocation Referrals: Deanna Dorman PA-C [Physician Roofing Sales Representative] - 1 Week Discharge Medications: New oxycodone 5 mg Tablet 5 mg PO Q4H PRN (Reason: Pain, Moderate (Pain Scale 4-6) 7 Days Qty: 42 RF: 0 Continued acetaminophen 325 mg Tablet 650 mg PO DAILY RF: 0 aspirin 325 mg Tablet 325 mg PO BID RF: 0 magnesium hydroxide [Milk of Magnesia] 400 mg/5 mL Suspension 30 ml PO BEDTIME PRN (Reason: Constipation) RF: 0 bisacodyl [Dulcolax (bisacodyl)] 10 mg Suppository 10 mg MT DAILY PRN (Reason: Constipation) RF: 0 docusate sodium 100 mg Capsule 100 mg PO BID RF: 0 Enema 19-7 gram/118 mL Enema 118 ml MT BEDTIME PRN (Reason: Constipation) RF: 0 cholecalciferol (vitamin D3) 25 mcg (1,000 unit) capsule 25 mcg PO DAILY Qty: 90 RF: 3 folic acid 1 mg tablet 1 mg PO DAILY Qty: 90 RF: 3 levothyroxine 75 mcg tablet 75 mcg PO DAILY Qty: 90 RF: 3 Discontinued acetaminophen 325 mg Tablet 650 mg PO Q6H PRN (Reason: FEVER/MILD PAIN) RF: 0 Discharge Orders: Discharge Order (Routine); Ordered 07/22/21 Ordered By: Deanna Dorman Activity on Discharge: Use Splints or Immobilizers Stand Alone Forms: Patient Portal Discharge page Care Plan Goals: restore fxn of right hip Health Concerns: none Plan of Treatment: Walker for ambulation Knee immobilizer at all times WBAT Assessment: stable for d/c
--- NOTE | 2021-07-22 09:12 | MHC.CM.PN ---
Per Medical, Patient will be medically cleared for dc to home today, with services. A referral was made to [facility] and they have been notified of today's dc (Sheridan from [facility] approved the use of [facility] for RN & PT). Patient also receives [address] [employer] hours/week and per , Patient has had several falls at SNF and he feels he, along with strong community support can take better care of Patient, with services, at home. CM has relayed this to Medical.Patient will dc home today at 1PM, via [facility].Last IMM addressed on 07/20/21.
[2021-07-22 09:26] LABS: Hematocrit 31.6 % (37-47); Hemoglobin 10.1 g/dl (12.0-16.0)
[2021-07-22] MEDS: Levothyroxine Sodium 75 MCG TABLET PO (09:29)
[2021-07-22] MEDS: Cholecalciferol (Vitamin D3) 25 MCG TABLET PO (09:29)
[2021-07-22] MEDS: Folic Acid 1 MG TABLET PO (09:30)
[2021-07-22] MEDS: 0.9 % Sodium Chloride Flush 3 ML SYRINGE IVFLUSH (09:30)
--- NOTE | 2021-07-22 09:33 | P.F2F_ITS ---
Service Date Service Date: 07/22/21 Reasons for Services Reason for physical therapy: home safety and mobility, therapeutic exercises, restore joint function, gait/transfer training, assess need for DME and ADL training Reason for occupational therapy: home safety and mobility, therapeutic exercises, restore joint function, gait/transfer training, assess need for DME and ADL training Homebound: Leaving the home is medically contraindicated at this time without the asist of a device and/or another person due th the listed conditions above and below. Reason homebound: unsteady gait / fall risk, leg weakness, pain with ambulation, poor balance / fall risk and unable to drive Homebound supporting statement: Pt. is considered homebound due to recent surgery. Unable to drive, poor balance, poor gait mechanics. Certification: Based on the above findings, I certify that this patient is confi eber to the home and needs intermittent residential care, physical therapy and/or speech therapy, or continues to need occupational therapy. The patient is under my care, and I have initiated the establishment of the plan of care. The patient will be followed by a physician who will periodically review the plan of care.
[2021-07-22 10:34] VITALS: BP 103/59; PULSE 94; O2SAT 97
--- NOTE | 2021-07-22 10:59 | HO.POSTANES ---
Post Anesthesia Evaluation Post Anesthesia Evaluation Vital Signs: Vital Signs Temp Pulse Resp BP Pulse Ox 07/22/21 10:34 94 103/59 L 97 07/22/21 08:00 97.6 F 94 18 103/59 L 97 07/22/21 03:59 98.6 F 93 12 116/57 L 94 07/22/21 02:33 16 07/21/21 23:23 98.4 F 99 14 112/54 L 93 Anesthesia: General Mental Status: Awake Pain Control: Satisfactory Nausea/Vomiting: None Hydration: Adequate Anesthesia-Related Issues: No Anes. Related Issues
[2021-07-22 11:01] VITALS: BP 117/55; PULSE 94; RESP 17; TEMP 36.7; O2SAT 97
--- NOTE | 2021-07-22 15:32 | HO.PM.IMPN ---
Subjective Subjective Date of Service: 07/22/21 Interval History: Seen and examined this morning No specific complaints Review of Systems Review of Systems: Yes all other systems are reviewed and are negative Constitutional Constitutional: Denies chills and Denies fever(s) Cardiovascular Cardiovascular: Denies chest pain Respiratory Respiratory: Denies cough Gastrointestinal Gastrointestinal: Denies abdominal pain Physical Exam Vital Signs: Vital Signs: Last Vital Signs Temp 98.1 F 07/22/21 11:01 Pulse 94 07/22/21 11:01 Resp 17 07/22/21 11:01 BP 117/55 L 07/22/21 11:01 Pulse Ox 97 07/22/21 11:01 Oxygen Flow Rate 2 07/20/21 16:21 Body Mass Index 29.0 Const: Nutritional Appearance: well nourished HENMT: Head: Yes normocephalic and Yes atraumatic Eyes: Sclerae: sclerae normal Chest: Chest palpation & inspection: normal inspection of the chest Resp: Effort & Inspection: normal respiratory effort and no respiratory distress Cardio: Rate: regular rate Rhythm: regular rhythm GI: Palpation (GI): Soft to palpation and nontender Neuro: Cranial nerves: Yes CN's II-XII intact bilaterally and Yes Bilaterally intact EOM present Extrem: Other: right hip dressing c/d/i; right leg in full leg immobilizer General: Yes normal to inspection Objective Data Labs CBC & Chem 7: 07/22/21 09:18 07/20/21 17:35 Assessment and Plan (1) Dislocation, hip closed: Status: Acute Assessment and Plan: This is a 56 yo F who sustained a mechanical fall in May 2021 and underwent a successful operative repair. She has since then, had 2 further mechanical falls resulting in hip dislocation, with both requiring OR reduction. She is now POD #1 from the second OR reduction. Medical services consulted for management of her medical issues. Hypothyroidism continue synthroid Dementia without behavioral disturbances continue to use non-pharmacological methods as much as possible Heart-block s/p PPM no active issues will add telemetry attending: dr. christianson Quality Stroke Does the patient have a stroke diagnosis?: No VTE Prior VTE?: No VTE Risk Level:: Medical - low VTE Device Contraindication: N/A - Device Ordered VTE Drug Contraindication: N/A - Med Ordered
== END 2021-07-22 13:50 | disposition home health service (06) | DRG 468 ==
LOC: HO.ED 14:39 → HO.EDOVER 07-21 00:48 → HO.IMC 07-21 02:44
PROVIDERS: Orthopaedic Surgery; Admitting Provider Physician Assistant; Emergency Provider Emergency Medicine; PCP Internal Medicine; Visit Provider Physician Assistant
PROC: 0SWR0JZ Revision of Synthetic Substitute in Right Hip Joint, Femoral Surface, Open Approach (ICD-10-PCS; principal; 2021-07-21 09:10)
DX: T84.020A Dislocation of internal right hip prosthesis, initial encounter (principal); F03.90 Unspecified dementia, unspecified severity, without behavioral disturbance, psychotic disturbance, mood disturbance, and anxiety; Z96.641 Presence of right artificial hip joint; Z95.0 Presence of cardiac pacemaker; I95.81 Postprocedural hypotension; E03.9 Hypothyroidism, unspecified; F17.210 Nicotine dependence, cigarettes, uncomplicated; Z20.822 Contact with and (suspected) exposure to COVID-19; Z71.6 Tobacco abuse counseling; Z79.82 Long term (current) use of aspirin; Z79.890 Hormone replacement therapy; Z79.899 Other long term (current) drug therapy
CPT/HCPCS: 36415; 72170; 73502; 80048; 85014; 85018; 85025; 85610; 85730; 87635; 93005; 96374; 96376; 97110; 97162; 97167; 99285; J0690; J1170; J2405; J2765; J3010

== ENCOUNTER 2021-07-23 10:17 | Inpatient (IN) | payer OTHER, SELFPAY ==
--- NOTE | ~2021-07-23 | XR_ITS ---
EXAMINATION: XR CHEST CLINICAL INFORMATION: Elevated white count. Fever overnight. COMPARISON: Chest 06/14/2021 TECHNIQUE: Frontal view of the chest was obtained. FINDINGS: The lungs are well-expanded and clear. There is no acute pneumonic consolidation or pleural effusion. The heart size and pulmonary vascularity is normal. There are dual pacer electrodes in right atrium and right ventricle. No gross bony abnormality seen. XR/XR chest 1V IMPRESSION: Unremarkable chest exam.
--- NOTE | ~2021-07-23 | XR_ITS ---
EXAMINATION: XR HIP, LEFT CLINICAL INFORMATION: Pain COMPARISON: AP pelvis 07/21/2021 TECHNIQUE: Two views of the left hip. FINDINGS: No fracture or dislocation. Normal mineralization and alignment. An IUD is seen centrally in the uterus. XR/XR hip LT min 2V IMPRESSION: No left hip fracture seen.
--- NOTE | ~2021-07-23 | XR_ITS ---
EXAMINATION: XR CHEST CLINICAL INFORMATION: Fever. COMPARISON: Chest 07/26/2021 TECHNIQUE: Frontal view of the chest was obtained. FINDINGS: The lungs are expanded with mild increased interstitial markings slightly more prominent than 07/26/2021. No consolidation pleural effusion seen. There are pacer electrodes in right atrium and right ventricle. The heart size is normal. No gross bony abnormality seen. XR/XR chest 1V IMPRESSION: Increased bilateral interstitial markings, new. Question interstitial pneumonitis or edema.
--- NOTE | ~2021-07-23 | XR_ITS ---
EXAMINATION: XR HIP, RIGHT CLINICAL INFORMATION: Pain COMPARISON: Previous x-rays most recent 07/21/2021 TECHNIQUE: Two views of the right hip. FINDINGS: The right hip prosthesis is dislocated superiorly, laterally and anteriorly with respect to the acetabulum. No fracture is seen. There are postsurgical changes to the soft tissues. There is an IUD in the pelvis. XR/XR hip RT min 2V IMPRESSION: Dislocated right hip prosthesis.
--- NOTE | 2021-07-23 10:26 | ED.GENADULT ---
HPI - General Adult General Chief complaint: General Medical Stated complaint: r hip pain Time Seen by Provider: 07/23/21 10:26 Source: patient, EMS and old records reviewed Mode of arrival: EMS Limitations: other (dementia poor historian) History of Present Illness complaint: chronic hip pain needs placement Onset (ago): day(s) (2) Location: right and lower extremity Severity: mild Quality: aching Pain Consistency: intermittent Relieving factors: none Exacerbating factors: none Associated symptoms: other (dc from here on 07/22 post open R hip reduction - sent home but cannot care for her) Treatments prior to arrival: splint Related Data Home Medications Medication Instructions Recorded Confirmed acetaminophen 325 mg tablet 650 mg PO DAILY 07/20/21 07/20/21 aspirin 325 mg tablet 325 mg PO BID 07/20/21 07/20/21 bisacodyl 10 mg rectal suppository 10 mg [place] DAILY PRN 07/20/21 07/20/21 (Dulcolax (bisacodyl)) docusate sodium 100 mg capsule 100 mg PO BID 07/20/21 07/20/21 magnesium hydroxide 400 mg/5 mL 30 ml PO BEDTIME PRN 07/20/21 07/20/21 oral suspension (Milk of Magnesia) sodium phosphates 19 gram-7 118 ml [place] BEDTIME PRN 07/20/21 07/20/21 gram/118 mL enema (Enema) Previous Rx's Medication Instructions Recorded cholecalciferol (vitamin D3) 25 25 mcg PO DAILY #90 cap 12/30/20 mcg (1,000 unit) capsule folic acid 1 mg tablet 1 mg PO DAILY #90 tab 12/30/20 levothyroxine 75 mcg tablet 75 mcg PO DAILY #90 tab 12/30/20 oxycodone 5 mg tablet 5 mg PO Q4H PRN 7 Days #42 tab 07/22/21 underpads (Bed Underpads) #40 ea 07/22/21 Allergies Allergy/AdvReac Type Severity Reaction Status Date / Time [place] nut Allergy Unknown Verified 07/20/21 13:30 lactose Allergy Diarrhea Verified 07/20/21 13:29 Review of Systems Review of Systems: Constitutional : No Fever, No Chills ENT/Mouth : No Ear Pain, No Hoarseness, No sore throat Eyes: No Eye Pain, No Swelling, No Redness, No Foreign Body Cardiovascular : No Chest Pain, No SOB Respiratory : No Cough, No Dyspnea Gastrointestinal : No Nausea, No Vomiting, No Diarrhea, No abdominal Pain Genitourinary : No Dysuria, No Hematuria Musculoskeletal : positive joint pain, No Myalgias, No Joint Swelling Skin : No Skin lacerations, No rash Neuro : No Weakness, No Numbness, No Loss of Consciousness, No Dizziness, No Headache Psych : No Anxiety/Panic, No Depression Heme/Lymph: no easy bruising, no Lymphadenopathy Endocrine : No Polyuria, No Polydipsia All other systems reviewed and are negative [facility] Past Medical History Attestation statement: The following information was validated with the patient. Medical History Balance disorder Closed dislocation of right hip Closed hip fracture Dementia Displaced fracture of right femoral neck Hip dislocation, right History of pacemaker Hypothyroidism Increased urinary frequency Lactose intolerance Left leg weakness Memory loss PTSD (post-traumatic stress disorder) Sinus arrest Sinus pause Symptomatic bradycardia Syncope Tobacco dependence Urinary incontinence Surgical History Hx of total hip arthroplasty No pertinent past surgical history Status post hip hemiarthroplasty Social History Social History Household Members: Spouse Housing: Halfway Do you presently have visiting nurse or other home services: No (patient was at rehab following her hip surgery) Unable to assess alcohol history related to: Unknown Alcohol intake: current Alcohol intake frequency: does not drink Patient Tobacco Use Status: Current someday Tobacco user Tobacco use type: Cigarette Cigarettes Per Day: 8 Years Smoked: since teen years per pt e-Cigarette/Vaping Use: Never Used Second Hand Smoke Exposure: No Substance Use Type: Marijuana Advance Directives: No service: No Current occupational status: disabled Current occupation: rt handed Physical Exam Vital Signs: Vital Signs: Last Vital Signs Temp 97.1 F 07/23/21 10:36 Pulse 90 07/23/21 11:12 Resp 16 07/23/21 10:36 BP 113/57 L 07/23/21 11:12 Pulse Ox 96 07/23/21 11:12 Body Mass Index 25.1 Appearance: Alert. Oriented X2. No acute distress. Eyes: Pupils equal, round and reactive to light. ENT: Pharynx normal. Neck: Normal inspection. Neck supple. CVS: Normal heart rate and rhythm. Pulses normal. Respiratory: No respiratory distress. Breath sounds normal. Abdomen: Soft and nontender. Skin: Skin warm and dry. Normal skin color. Normal skin turgor. Extremities: No lower extremity edema. R knee immobilizer, L hip reports pain distal NV intact Neuro: Oriented X 2. No motor deficit. No sensory deficit. Course Course Course Narrative: message sent to orthopedics [id number] - will admit Medical Decision Making [facility] Narrative Medical decision making narrative: 56 yo female from home with dementia, bradycardia s/p PPM, recurrent R hip dislocation c/o pain will repeat xrays, basic labs, UA - COVID swab, likely placement with negative workup Lab Data Result diagrams: 07/23/21 11:07 07/23/21 11:06 Labs: Lab Results 07/23/21 07/23/21 07/23/21 Range/Units 11:06 11:06 11:07 WBC 12.8 H (4.8-10.8) X10*3/uL RBC 3.77 L (4.20-5.50) X10*6/uL Hgb 10.7 L (12.0-16.0) g/dl Hct 33.2 L (37-47) % MCV 88.1 (80-98) fL MCH 28.4 (27.0-33.0) pg MCHC 32.2 (31.0-35.0) g/dl RDW 14.2 (11.0-16.0) % Plt Count 469 H (160-400) X10*3/uL MPV 9.4 (9.4-12.3) fL Immature Gran % (Auto) 0.8 H (0.0-0.4) % Neut % (Auto) 73.1 H (45-73) % Lymph % (Auto) 17.1 L (20-40) % [place] % (Auto) 6.3 (2-11) % Eos % (Auto) 2.2 (0-4) % Baso % (Auto) 0.5 (0-2) % Lymph # (Auto) 2.2 (1.2-4.9) X10*3/uL [place] # (Auto) 0.8 (0.1-1.2) X10*3/uL Eos # (Auto) 0.3 (0.0-0.4) X10*3/uL Baso # (Auto) 0.1 (0.0-0.2) X10*3/uL Abs Immat Gran (auto) 0.10 H (0.00-0.03) X10*3/uL Absolute Neuts (auto) 9.4 H (2.0-8.3) X10*3/uL Absolute Nucleated RBC 0.000 (0.0-0.012) X10*3/uL Nucleated RBC % (auto) 0.0 (0.0-0.2) /100WBC Sodium 140 (135-145) mmol/L Potassium 3.8 (3.3-5.1) mmol/L Chloride 103 (96-108) mmol/L Carbon Dioxide 28 (22-29) mmol/L Anion Gap 13 (12-20) BUN 8 L D (9-16) mg/dL Creatinine 0.62 (0.5-1.4) mg/dL Estim Creat Clear Calc 88.0 Estimated GFR > 60 Random Glucose 95 (60-115) mg/dL Calcium 9.3 D (8.4-10.2) mg/dL Magnesium 1.8 (1.6-2.6) mg/dL COVID-19 (BOB) Negative (Negative) COVID-19 Clin Com See Note Discharge Plan Discharge Clinical Impression: Dislocation, hip closed Patient Disposition: Admitted As Inpatient Prescriptions: No Action (DME) underpads [Bed Underpads] Pad See Rx Instructions .Route Qty: 40 RF: 0 acetaminophen 325 mg Tablet 650 mg PO DAILY RF: 0 aspirin 325 mg Tablet 325 mg PO BID RF: 0 magnesium hydroxide [Milk of Magnesia] 400 mg/5 mL Suspension 30 ml PO BEDTIME PRN (Reason: Constipation) RF: 0 bisacodyl [Dulcolax (bisacodyl)] 10 mg Suppository 10 mg [place] DAILY PRN (Reason: Constipation) RF: 0 docusate sodium 100 mg Capsule 100 mg PO BID RF: 0 Enema 19-7 gram/118 mL Enema 118 ml [place] BEDTIME PRN (Reason: Constipation) RF: 0 oxycodone 5 mg Tablet 5 mg PO Q4H PRN (Reason: Pain, Moderate (Pain Scale 4-6) 7 Days Qty: 42 RF: 0 cholecalciferol (vitamin D3) 25 mcg (1,000 unit) capsule 25 mcg PO DAILY Qty: 90 RF: 3 folic acid 1 mg tablet 1 mg PO DAILY Qty: 90 RF: 3 levothyroxine 75 mcg tablet 75 mcg PO DAILY Qty: 90 RF: 3
[2021-07-23 10:36] VITALS: BP 112/72; BP 113/57; PULSE 90; PULSE 92; RESP 16; TEMP 36.2; O2SAT 94; O2SAT 96; BMI 25.1
[2021-07-23 11:12] VITALS: BP 113/57; PULSE 90; O2SAT 96
[2021-07-23 11:20] LABS: MANUAL DIFF FLAG NO
[2021-07-23 11:23] LABS: Basophils Absolute Auto 0.1 X10*3/uL (0.0-0.2); Basophils Percent Auto 0.5 % (0-2); Eosinophils Absolute Auto 0.3 X10*3/uL (0.0-0.4); Eosinophils Percent Auto 2.2 % (0-4); Hematocrit 33.2 % (37-47); Hemoglobin 10.7 g/dl (12.0-16.0); Imm Gran Pct Auto 0.8 % (0.0-0.4); Lymphocytes Absolute Auto 2.2 X10*3/uL (1.2-4.9); Lymphocytes Percent Auto 17.1 % (20-40); Mean Corpuscular HGB Conc 32.2 g/dl (31.0-35.0); Mean Corpuscular Hemoglobin 28.4 pg (27.0-33.0); Mean Corpuscular Volume 88.1 fL (80-98); Mean Platelet Volume 9.4 fL (9.4-12.3); Monocytes Absolute Auto 0.8 X10*3/uL (0.1-1.2); Monocytes Percent Auto 6.3 % (2-11); Neutrophils Absolute Auto 9.4 X10*3/uL (2.0-8.3); Neutrophils Percent Auto 73.1 % (45-73); Platelet Count 469 X10*3/uL (160-400); Red Blood Count 3.77 X10*6/uL (4.20-5.50); Red Cell Distribution Width 14.2 % (11.0-16.0); White Blood Count 12.8 X10*3/uL (4.8-10.8)
[2021-07-23 11:39] LABS: COVID-19 Test Negative (Negative)
[2021-07-23 11:42] LABS: Anion Gap 13 (12-20); Blood Urea Nitrogen 8 mg/dL (9-16); Calcium 9.3 mg/dL (8.4-10.2); Carbon Dioxide 28 mmol/L (22-29); Chloride 103 mmol/L (96-108); Estimated Glomerular Filt Rate > 60; Glucose Random 95 mg/dL (60-115); Magnesium 1.8 mg/dL (1.6-2.6); Potassium 3.8 mmol/L (3.3-5.1); Sodium 140 mmol/L (135-145)
--- NOTE | 2021-07-23 11:47 | MHC.CM.ED ---
Received notification from Fernanda JEAN-BAPTISTE, that patient was d/c'd home with [facility] on 07/22. Patient returned to ER today due to not being able to get out of bed. Patient has been to [facility] in the past and requested referral there. Referral made via [employer]. Patient will be an ortho admit. Continue to monitor for d/c needs.
--- NOTE | 2021-07-23 12:55 | PHA.MEDREC ---
Pharmacy Consult ? Medication Reconciliation Pharmacy has completed the medication reconciliation. There are no remarkable issues for provider's attention. Letha Zendejas, BennettD
[2021-07-23 15:21] VITALS: BP 103/55; PULSE 95; RESP 16; TEMP 36.6; O2SAT 95
[2021-07-23 15:52] LABS: Appearance Urine HAZY; Color Urine YELLOW; Glucose Urine UA NEG (NEG); Leukocyte Esterase Urine NEG (NEG); Nitrite Urine NEG (NEG); Specific Gravity - Urine 1.025 (1.005-1.025); Urine Blood NEG (NEG); Urine Ketones NEG (NEG); Urine Protein NEG (NEG-TRACE)
[2021-07-23 17:17] VITALS: BP 142/57; PULSE 93; RESP 18; TEMP 36.6; O2SAT 94
[2021-07-23] MEDS: Dextrose 5 % and 0.45 % NaCl 1,000 ML 80 ML IVCONT (18:13)
--- NOTE | 2021-07-23 18:31 | MHC.CM.PN ---
Addendum entered by Carmen Silver 07/23/21 18:43: Pt was at [facility]. Pt and do not want to return there. Christiano Krause ([phone]) Original Note: CM met with admitted pt with bed pending. IMM reviewed with pt and /HCP Christiano 07/23/21 @1540.. Signed by Christiano. Pt had R hip arthroplasty on 06/10. Has had 3 hip dislocations since, with admissions on 07/07, and today 07/23. Pt has been at [facility] and had home PT. Pt has dementia. Lives with . Uses a wheelchair and a walker for transfers. Has [facility] [employer]. also helps to care for her. HCP on file. , Christiano Krause is her HCP is requesting acute rehab at [place] only. has transportation issues and states he must visit his daily secondary to her dementia. CM spent time trying to explain that bed might not be available and that there are 2 other acute rehabs in our area. refuses secondary to transportation. Cannot seem to understand situation regarding bed situation in area [facility]. Will place referral at [place]. CM will follow for d/c needs.
[2021-07-23 19:30] VITALS: BP 106/63; PULSE 93; RESP 19; TEMP 37.4; O2SAT 96
[2021-07-23] MEDS: Docusate Sodium 100 MG CAPSULE PO (21:02)
[2021-07-23] MEDS: oxyCODONE HCl Immed Release 5 MG TABLET PO (21:08)
[2021-07-24] VITALS: BP 119/76; PULSE 78; RESP 17; TEMP 36.7; O2SAT 96
[2021-07-24 04:00] VITALS: BP 105/59; PULSE 86; RESP 16; TEMP 36.2; O2SAT 95
[2021-07-24 06:22] LABS: MANUAL DIFF FLAG NO
[2021-07-24 06:29] LABS: Basophils Absolute Auto 0.1 X10*3/uL (0.0-0.2); Basophils Percent Auto 0.4 % (0-2); Eosinophils Absolute Auto 0.4 X10*3/uL (0.0-0.4); Eosinophils Percent Auto 3.6 % (0-4); Hematocrit 30.9 % (37-47); Imm Gran Abs Auto 0.07 X10*3/uL (0.00-0.03); Imm Gran Pct Auto 0.6 % (0.0-0.4); Lymphocytes Absolute Auto 2.6 X10*3/uL (1.2-4.9); Lymphocytes Percent Auto 22.6 % (20-40); Mean Corpuscular HGB Conc 32.4 g/dl (31.0-35.0); Mean Corpuscular Hemoglobin 28.3 pg (27.0-33.0); Mean Corpuscular Volume 87.5 fL (80-98); Mean Platelet Volume 9.7 fL (9.4-12.3); Monocytes Absolute Auto 0.7 X10*3/uL (0.1-1.2); Monocytes Percent Auto 6.3 % (2-11); Neutrophils Absolute Auto 7.6 X10*3/uL (2.0-8.3); Neutrophils Percent Auto 66.5 % (45-73); Platelet Count 455 X10*3/uL (160-400); Red Blood Count 3.53 X10*6/uL (4.20-5.50); Red Cell Distribution Width 14.2 % (11.0-16.0); White Blood Count 11.4 X10*3/uL (4.8-10.8)
[2021-07-24 06:39] LABS: Anion Gap 11 (12-20); Blood Urea Nitrogen 8 mg/dL (9-16); Calcium 9.3 mg/dL (8.4-10.2); Carbon Dioxide 28 mmol/L (22-29); Chloride 103 mmol/L (96-108); Creatinine Clr Calc Pharmacy 95.7; Estimated Glomerular Filt Rate > 60; Glucose Fasting 103 mg/dL (60-99); Potassium 3.7 mmol/L (3.3-5.1); Sodium 138 mmol/L (135-145)
[2021-07-24 07:22] VITALS: BP 107/58; PULSE 84; RESP 17; TEMP 36.3; O2SAT 97
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
--- NOTE | 2021-07-24 10:13 | ECG_ITS ---
Test Reason : pre op Blood Pressure : / mmHG Vent. Rate : 093 BPM Atrial Rate : 093 BPM P-R Int : 148 ms QRS Dur : 076 ms QT Int : 340 ms P-R-T Axes : 052 -07 010 degrees QTc Int : 422 ms Normal sinus rhythm Cannot rule out Anterior infarct , age undetermined Abnormal ECG When compared with ECG of 20-JUL-2021 16:54, No significant change was found Referred By: Terrell Lange Electronically Signed By:ANGELLA LUCAS
[2021-07-24] MEDS: Dextrose 5 % and 0.45 % NaCl 1,000 ML 80 ML IVCONT ×2 (10:58→22:49)
--- NOTE | 2021-07-24 11:06 | P.PNOP_ITS ---
Subjective Subjective Date of Service: 07/24/21 Interval history: Patient resting comfortably in bed. Pain is well managed. No overnight events. No additional complaints. Physical Exam Vital Signs: Vital Signs: Last Vital Signs Temp 97.4 F 07/24/21 07:22 Pulse 84 07/24/21 07:22 Resp 17 07/24/21 07:22 BP 107/58 L 07/24/21 07:22 Pulse Ox 97 07/24/21 07:22 Body Mass Index 25.1 Const: General: cooperative, healthy appearing and no acute distress Resp: Effort & Inspection: normal respiratory effort and able to speak in complete sentences Cardio: Rate: regular rate Peripheral pulses: Peripheral pulses 2+ throughout GI: Palpation (GI): Soft to palpation Skin: Lesions: no lesions Rashes: no rashes Extrem: Other: Right lower extremity is shortened and externally rotated. [place] intact. No ecchymosis, redness, or purulent discharge. Patient is unable to follow commands for active ROM. Pedal pulse intact. Procedures Date of Service Date of Service: 07/24/21 Progress Note: A&P Assessment and plan (1) Dislocation, hip closed: Status: Acute Assessment and Plan: * Plan for right hip girdle stone tomorrow * Continue pain management * knee immobilizer and wedge * Medicine consult for preoperative medical clearance Fall Risk Details Current Medications: Current Medications Generic Name Dose Route Start Last Admin Trade Name Freq PRN Reason Stop Dose Admin Acetaminophen 650 mg 07/23/21 17:12 Acetaminophen Supp 650 Mg Supp.Rect [place] Q6H PRN Pain, Mild (Pain Scale 1-3) Docusate Sodium 100 mg 07/23/21 21:00 07/24/21 10:59 Docusate Sodium 100 Mg Capsule PO Not Given BID JOMAR Hydromorphone HCl 0.25 mg 07/23/21 17:12 Hydromorphone Hcl 0.5 Mg/0.5 Ml Syringe IVPUSH Q4H PRN Pain, Severe (Pain Scale 7-10) Protocol Dextrose/Sodium Chloride 1,000 mls @ 80 mls/hr 07/23/21 17:12 07/24/21 10:58 D51/2ns IVCONT 80 mls/hr .[id number] JOMAR Administration Ondansetron HCl 4 mg 07/23/21 17:12 Ondansetron Hcl 4 Mg/2 Ml Vial IVPUSH Q8H PRN Nausea and Vomiting Oxycodone HCl 5 mg 07/23/21 17:12 07/23/21 21:08 Oxycodone Hcl Immed Release 5 Mg Tablet PO 5 mg Q4H PRN Administration Pain, Moderate (Pain Scale 4-6 Pharmacy Consult 1 each 07/23/21 12:08 Consult Rx Perform Med Rec MISCELLANE ONCE PRN Consult order Time Spent With Patient Time: Total time spent is greater than 50% in coordination of care (as documented) at patient's floor/unit and/or counseling patient: Time with patient: less than 15 minutes Quality Stroke Does the patient have a stroke diagnosis?: No VTE Prior VTE?: No VTE Risk Level:: Surgical - high VTE Device Contraindication: N/A - Device Ordered VTE Drug Contraindication: N/A - Med Ordered
--- NOTE | 2021-07-24 11:10 | P.HPOP_ITS ---
History of Present Illness History of Present Illness Date of Service: 07/24/21 Chief complaint: r hip pain Narrative: Gonzalez Santiago is a 56 year old female who presents to the ED accompanied by her . She has a PMH significant for dementia, pace maker due to sinus pauses, and right hip hemiarthroplasty. She is s/p right hip hemiarthroplasty on 06/10/21. She has now dislocated on 07/07/21 and 07/20/21. On 07/21/21 she was brought to the operating room for an open reduction under anesthe luiza. She presents to the ED today because the decision was made to d/c the patient home due to request but he is unable to care for her. X-rays obtained in the ED of the right hip reveal that she has again sustained a right hip hemiarthroplasty dislocation. The orthopedic team was then consulted for further evaluation and treatment. Review of Systems Review of Systems: Yes all other systems are reviewed and are negative [facility] Past Medical History Medical History Balance disorder Closed dislocation of right hip Closed hip fracture Dementia Displaced fracture of right femoral neck Hip dislocation, right History of pacemaker Hypothyroidism Increased urinary frequency Lactose intolerance Left leg weakness Memory loss PTSD (post-traumatic stress disorder) Sinus arrest Sinus pause Symptomatic bradycardia Syncope Tobacco dependence Urinary incontinence Surgical History Surgical History Hx of total hip arthroplasty No pertinent past surgical history Status post hip hemiarthroplasty Social History Social History Household Members: Spouse Housing: Apartment Do you presently have visiting nurse or other home services: Yes Unable to assess alcohol history related to: Unknown Alcohol intake: current Alcohol intake frequency: does not drink Patient Tobacco Use Status: Current someday Tobacco user Tobacco use type: Cigarette Cigarettes Per Day: 4 Years Smoked: since teen years per pt Smoked in Last 30 Days: Yes e-Cigarette/Vaping Use: Never Used Patient Interested in Nicotine Replacement: Yes Patient Given Instructions on How to Stop Smoking: No Second Hand Smoke Exposure: Yes Use of substances other than those prescribed or required for medical reasons: No Substance Use Type: Marijuana Currently Displaying Signs/Symptoms of Drug Intoxication Withdrawal: No Have you been hit, kicked, punched, or otherwise hurt by someone within the past year? If so, by whom?: No Do you feel safe in your current relationship?: Yes Is there a partner from a previous relationship who is making you feel unsafe now?: Yes Are you made to feel afraid or neglected: No Advance Directives: No Do you have thoughts of harming others: None Do you have a plan to hurt others: No Plan Recently lost weight without trying: No Nutrition Risks: No Nutritional Risk Patient : No : No Poor oral hygiene: No service: No Current occupational status: disabled Current occupation: rt handed Meds Allergies Allergy/AdvReac Type Severity Reaction Status Date / Time [place] nut Allergy Unknown Verified 07/20/21 13:30 lactose Allergy Diarrhea Verified 07/20/21 13:29 Active Medications: Current Medications Generic Name Dose Route Start Last Admin Trade Name Freq PRN Reason Stop Dose Admin Acetaminophen 650 mg 07/23/21 17:12 Acetaminophen Supp 650 Mg Supp.Rect [place] Q6H PRN Pain, Mild (Pain Scale 1-3) Docusate Sodium 100 mg 07/23/21 21:00 07/24/21 10:59 Docusate Sodium 100 Mg Capsule PO Not Given BID JOMAR Hydromorphone HCl 0.25 mg 07/23/21 17:12 Hydromorphone Hcl 0.5 Mg/0.5 Ml Syringe IVPUSH Q4H PRN Pain, Severe (Pain Scale 7-10) Protocol Dextrose/Sodium Chloride 1,000 mls @ 80 mls/hr 07/23/21 17:12 07/24/21 10:58 D51/2ns IVCONT 80 mls/hr .[id number] JOMAR Administration Ondansetron HCl 4 mg 07/23/21 17:12 Ondansetron Hcl 4 Mg/2 Ml Vial IVPUSH Q8H PRN Nausea and Vomiting Oxycodone HCl 5 mg 07/23/21 17:12 07/23/21 21:08 Oxycodone Hcl Immed Release 5 Mg Tablet PO 5 mg Q4H PRN Administration Pain, Moderate (Pain Scale 4-6 Pharmacy Consult 1 each 07/23/21 12:08 Consult Rx Perform Med Rec MISCELLANE ONCE PRN Consult order Home Medications Medication Instructions Recorded Confirmed Last Taken Type acetaminophen 325 mg tablet 650 mg PO Q6H PRN 07/20/21 07/23/21 Unknown History aspirin 325 mg tablet 325 mg PO BID 07/20/21 07/23/21 07/23/21 History nicotine 14 mg/24 hr daily 1 patch TOPICAL DAILY 07/23/21 07/23/21 07/21/21 History transdermal patch Physical Exam Vital Signs: Vital Signs: Last Vital Signs Temp 97.4 F 07/24/21 07:22 Pulse 84 07/24/21 07:22 Resp 17 07/24/21 07:22 BP 107/58 L 07/24/21 07:22 Pulse Ox 97 07/24/21 07:22 Body Mass Index 25.1 Extrem: Other: Right lower extremity is shortened and externally rotated. The prior incision site is well approximated with no ecchymosis, redness, or purulent discharge. Skin is intact. [place] are intact. Patient is able to dorsiflex and plantarflex. Sensation intact. Pedal pulse intact. Results Labs Result Diagrams: 07/24/21 05:54 07/24/21 05:54 Labs: Abnormal lab results 07/23/21 07/23/21 07/24/21 Range/Units 11:06 11:07 05:54 WBC 12.8 H 11.4 H (4.8-10.8) X10*3/uL RBC 3.77 L 3.53 L (4.20-5.50) X10*6/uL Hgb 10.7 L 10.0 L (12.0-16.0) g/dl Hct 33.2 L 30.9 L (37-47) % Plt Count 469 H 455 H (160-400) X10*3/uL Immature Gran % (Auto) 0.8 H 0.6 H (0.0-0.4) % Neut % (Auto) 73.1 H (45-73) % Lymph % (Auto) 17.1 L (20-40) % Abs Immat Gran (auto) 0.10 H 0.07 H (0.00-0.03) X10*3/uL Absolute Neuts (auto) 9.4 H (2.0-8.3) X10*3/uL Anion Gap (12-20) BUN 8 L D (9-16) mg/dL Fasting Glucose (60-99) mg/dL 07/24/21 Range/Units 05:54 WBC (4.8-10.8) X10*3/uL RBC (4.20-5.50) X10*6/uL Hgb (12.0-16.0) g/dl Hct (37-47) % Plt Count (160-400) X10*3/uL Immature Gran % (Auto) (0.0-0.4) % Neut % (Auto) (45-73) % Lymph % (Auto) (20-40) % Abs Immat Gran (auto) (0.00-0.03) X10*3/uL Absolute Neuts (auto) (2.0-8.3) X10*3/uL Anion Gap 11 L (12-20) BUN 8 L (9-16) mg/dL Fasting Glucose 103 H (60-99) mg/dL H & H 07/23/21 07/24/21 Range/Units 11:07 05:54 Hgb 10.7 L 10.0 L (12.0-16.0) g/dl Hct 33.2 L 30.9 L (37-47) % All other labs normal. Assessment and Plan (1) Dislocation, hip closed: Qualifiers: Encounter type: initial encounter Laterality: right Qualified Code(s): S73.004A - Unspecified dislocation of right hip, initial encounter Status: Acute Ms. Santiago is a 56 yo female who is s/p right hip hemiarthroplasty on 06/10/21. She has now dislocated on 07/07/21 and 07/20/21. On 07/21/21 she was brought to the operating room for an open reduction under anesthesia. She presents to the ED today because the patient was d/c'ed home due to patient and request but unfortunately her is unable to care for her. X-rays obtained in the ED of the right hip reveal that she has again sustained a right hip hemiarthroplasty dislocation. The orthopedic team was then consulted for further evaluation and treatment. The patient was admitted to the orthopedic service. Dr. Zafar was also available to see the patient and speak with her . I discussed the case with Dr. Zafar and explained the extent of the injury to the patient and her as well as the options available which include surgical intervention. I explained the procedure in detail along with the length of recovery and rehab course. I explained the risk, benefits and alternatives. Risk including, but not limited to infection, blood clots, bleeding, non union or malunion and nerve/tissue damage to surrounding areas. I answered all their questions and with their understanding they have consented to move forward with a right hip girdle stone. The patient will be T&S, med clearance obtained and NPO after midnight the night before surgery. Tentative plan is to take the patient to the operating room Monday07/25/21. Quality Stroke Does the patient have a stroke diagnosis?: No VTE Prior VTE?: No VTE Risk Level:: Surgical - high VTE Device Contraindication: N/A - Device Ordered VTE Drug Contraindication: N/A - Med Ordered Procedures Date of Service Date of Service: 07/24/21
[2021-07-24 11:46] VITALS: BP 104/53; PULSE 94; RESP 18; TEMP 36.7; O2SAT 91
[2021-07-24 15:29] VITALS: BP 104/60; PULSE 100; RESP 18; TEMP 36.8; O2SAT 97
[2021-07-24 19:00] VITALS: BP 117/60; PULSE 113; RESP 18; TEMP 38.2; O2SAT 95
[2021-07-24] MEDS: oxyCODONE HCl Immed Release 5 MG TABLET PO (22:48)
[2021-07-24] MEDS: Docusate Sodium 100 MG CAPSULE PO (22:48)
[2021-07-25] VITALS (7 sets, daily range): BP systolic 105–140; BP diastolic 52–69; PULSE 97–115; RESP 16–19; TEMP 36.1–38.4; O2SAT 95–97
[2021-07-25 05:34] LABS: MANUAL DIFF FLAG NO
[2021-07-25 05:42] LABS: Basophils Absolute Auto 0.1 X10*3/uL (0.0-0.2); Basophils Percent Auto 0.3 % (0-2); Eosinophils Absolute Auto 0.1 X10*3/uL (0.0-0.4); Eosinophils Percent Auto 0.5 % (0-4); Hemoglobin 10.5 g/dl (12.0-16.0); Imm Gran Abs Auto 0.11 X10*3/uL (0.00-0.03); Imm Gran Pct Auto 0.6 % (0.0-0.4); Lymphocytes Absolute Auto 2.7 X10*3/uL (1.2-4.9); Lymphocytes Percent Auto 15.1 % (20-40); Mean Corpuscular HGB Conc 31.8 g/dl (31.0-35.0); Mean Corpuscular Hemoglobin 27.8 pg (27.0-33.0); Mean Corpuscular Volume 87.3 fL (80-98); Mean Platelet Volume 10.1 fL (9.4-12.3); Monocytes Absolute Auto 1.3 X10*3/uL (0.1-1.2); Monocytes Percent Auto 7.2 % (2-11); Neutrophils Absolute Auto 13.6 X10*3/uL (2.0-8.3); Neutrophils Percent Auto 76.3 % (45-73); Platelet Count 516 X10*3/uL (160-400); Red Blood Count 3.78 X10*6/uL (4.20-5.50); Red Cell Distribution Width 14.2 % (11.0-16.0); White Blood Count 17.9 X10*3/uL (4.8-10.8)
[2021-07-25 05:57] LABS: Anion Gap 14 (12-20); Blood Urea Nitrogen 9 mg/dL (9-16); Calcium 8.8 mg/dL (8.4-10.2); Carbon Dioxide 23 mmol/L (22-29); Chloride 100 mmol/L (96-108); Estimated Glomerular Filt Rate > 60; Glucose Fasting 113 mg/dL (60-99); Potassium 3.9 mmol/L (3.3-5.1); Sodium 133 mmol/L (135-145)
--- NOTE | 2021-07-25 08:57 | P.PNIM_ITS ---
Subjective Subjective Date of Service: 07/25/21 Interval History: Seen in f/u for periop eval, has hip dislocation and is awaiting surgical repair. No new issues, no chest pain, no sob, hip pain controlled Review of Systems as above Physical Exam Vital Signs: Vital Signs: Last Vital Signs Temp 98.4 F 07/25/21 08:00 Pulse 97 07/25/21 08:00 Resp 18 07/25/21 08:00 BP 110/52 L 07/25/21 08:00 Pulse Ox 97 07/25/21 08:00 Body Mass Index 25.1 Constitutional Awake and Alert, No apparent distress HEENT anicteric Neck Supple, No lymphadenopathy Cardiovascular RRR, No M/R/G, S1 S2, No S3 S4, No pedal edema Respiratory Lungs clear, No respiratory distress Gastrointestinal Non tender, Non-distended Skin No rash Neurological Alert but not oriented time or place MSK: dislocated right hip with prosthesis protruding Psychological flat affect Objective Data Active Medications Acetaminophen (Acetaminophen Supp 650 Mg Supp.Rect) 650 mg [place] Q6H PRN PRN Reason: Pain, Mild (Pain Scale 1-3) Docusate Sodium (Docusate Sodium 100 Mg Capsule) 100 mg PO BID [facility] Last Admin: 07/25/21 07:53 Dose: Not Given Documented by: YEFRI Non-Admin Reason: NPO Hydromorphone HCl (Hydromorphone Hcl 0.5 Mg/0.5 Ml Syringe) 0.25 mg IVPUSH Q4H PRN; Protocol PRN Reason: Pain, Severe (Pain Scale 7-10) Dextrose/Sodium Chloride (D51/2ns) 1,000 mls @ 80 mls/hr IVCONT .[id number] [facility] Last Admin: 07/25/21 07:29 Dose: Not Given Documented by: YEFRI Non-Admin Reason: IV Running Ondansetron HCl (Ondansetron Hcl 4 Mg/2 Ml Vial) 4 mg IVPUSH Q8H PRN PRN Reason: Nausea and Vomiting Oxycodone HCl (Oxycodone Hcl Immed Release 5 Mg Tablet) 5 mg PO Q4H PRN PRN Reason: Pain, Moderate (Pain Scale 4-6 Last Admin: 07/24/21 22:48 Dose: 5 mg Documented by: HO.[email or web address] Pharmacy Consult (Consult Rx Perform Med Rec) 1 each MISCELLANE ONCE PRN PRN Reason: Consult order Labs CBC & Chem 7: 07/25/21 04:47 07/25/21 04:47 Labs: Laboratory Results - last 24 hr 07/25/21 07/25/21 04:47 04:47 MCV 87.3 MCH 27.8 MCHC 31.8 RDW 14.2 Plt Count 516 H MPV 10.1 Immature Gran % (Auto) 0.6 H Neut % (Auto) 76.3 H Lymph % (Auto) 15.1 L [place] % (Auto) 7.2 Eos % (Auto) 0.5 Baso % (Auto) 0.3 Lymph # (Auto) 2.7 [place] # (Auto) 1.3 H Eos # (Auto) 0.1 Baso # (Auto) 0.1 Abs Immat Gran (auto) 0.11 H Absolute Neuts (auto) 13.6 H Absolute Nucleated RBC 0.000 Nucleated RBC % (auto) 0.0 Anion Gap 14 Estim Creat Clear Calc 88.0 Estimated GFR > 60 Fasting Glucose 113 H Calcium 8.8 Assessment and Plan (1) Pre-op evaluation: Status: Acute Assessment and Plan: 56 yo F who sustained a mechanical fall in May 2021 and underwent a successful operative repair. She has since then? had multiple falls and? dislocated the right hip hip and in fact was discharged just a day before this readmisson for the same thing. There is no report of? syncope.? She is planned for reduction in OR #Pre-op eval, Right dislocated hip--for operative repair. ECG shows no specific finding, last echo June 11:Conclusions: - The left ventricular systolic function is normal.? The visually estimated ejection fraction is between 65-70%. ? - No obvious valvular pathology seen on this study.? - Mild pulmonary hypertension is present.? ? ? Will have cardiology see her and review ECG and determine if repeat echo is warranted, in my opinion not # Hypothyroidism continue synthroid # Dementia without behavioral disturbances continue to use non-pharmacological methods as much as possible 4. Heart-block s/p PPM no active issues, monitor, cardiology to consider if need be interogated. 5. Leukocytosis--probably reactive, check UA, there if no fever Quality Stroke Does the patient have a stroke diagnosis?: No VTE Prior VTE?: No VTE Risk Level:: Surgical - high VTE Device Contraindication: N/A - Device Ordered VTE Drug Contraindication: N/A - Med Ordered
--- NOTE | 2021-07-25 10:04 | P.PNOP_ITS ---
Subjective Subjective Date of Service: 07/25/21 Interval history: Patient resting comfortably in bed with at bedside. Pain is well managed. No overnight events. No additional complaints. Physical Exam Vital Signs: Vital Signs: Last Vital Signs Temp 98.4 F 07/25/21 08:00 Pulse 97 07/25/21 08:00 Resp 18 07/25/21 08:00 BP 110/52 L 07/25/21 08:00 Pulse Ox 97 07/25/21 08:00 Body Mass Index 25.1 Const: General: cooperative, healthy appearing and no acute distress Resp: Effort & Inspection: normal respiratory effort and able to speak in complete sentences Cardio: Rate: regular rate Peripheral pulses: Peripheral pulses 2+ throughout GI: Palpation (GI): Soft to palpation Skin: Lesions: no lesions Rashes: no rashes Extrem: Other: Right lower extremity is shortened and externally rotated. The prior incision site is well approximated with no ecchymosis, redness, or purulent discharge. Skin is intact. [place] are intact. Patient is able to dorsiflex and plantarflex. Sensation intact. Pedal pulse intact. Procedures Date of Service Date of Service: 07/25/21 Progress Note: A&P Assessment and plan (1) Dislocation, hip closed: Status: Acute Assessment and Plan: * Postponed surgery for right hip girdle stone today due to abnormal EKG yesterday * Medicine will order cardiology consult and echo for pre operative clearance * Continue pain management * knee immobilizer and wedge Fall Risk Details Current Medications: Current Medications Generic Name Dose Route Start Last Admin Trade Name Freq PRN Reason Stop Dose Admin Acetaminophen 650 mg 07/23/21 17:12 Acetaminophen Supp 650 Mg Supp.Rect [place] Q6H PRN Pain, Mild (Pain Scale 1-3) Docusate Sodium 100 mg 07/23/21 21:00 07/25/21 07:53 Docusate Sodium 100 Mg Capsule PO Not Given BID JOMAR Hydromorphone HCl 0.25 mg 07/23/21 17:12 Hydromorphone Hcl 0.5 Mg/0.5 Ml Syringe IVPUSH Q4H PRN Pain, Severe (Pain Scale 7-10) Protocol Dextrose/Sodium Chloride 1,000 mls @ 80 mls/hr 07/23/21 17:12 07/25/21 07:29 D51/2ns IVCONT Not Given .[id number] JOMAR Ondansetron HCl 4 mg 07/23/21 17:12 Ondansetron Hcl 4 Mg/2 Ml Vial IVPUSH Q8H PRN Nausea and Vomiting Oxycodone HCl 5 mg 07/23/21 17:12 07/24/21 22:48 Oxycodone Hcl Immed Release 5 Mg Tablet PO 5 mg Q4H PRN Administration Pain, Moderate (Pain Scale 4-6 Pharmacy Consult 1 each 07/23/21 12:08 Consult Rx Perform Med Rec MISCELLANE ONCE PRN Consult order Time Spent With Patient Time: Total time spent is greater than 50% in coordination of care (as documented) at patient's floor/unit and/or counseling patient: Time with patient: less than 15 minutes Quality Stroke Does the patient have a stroke diagnosis?: No VTE Prior VTE?: No VTE Risk Level:: Surgical - high VTE Device Contraindication: N/A - Device Ordered VTE Drug Contraindication: N/A - Med Ordered
[2021-07-25] MEDS: Dextrose 5 % and 0.45 % NaCl 1,000 ML 80 ML IVCONT ×2 (11:04→22:39)
--- NOTE | 2021-07-25 11:18 | PM.CNCAR ---
History of Present Illness History of Present Illness Date of Service: 07/25/21 Chief complaint: r hip pain Narrative: This is a cardiology consultation regarding preoperative risk stratification for hip surgery. She was recently seen in consultation few weeks ago. At that time, she had suffered a fall and was admitted for hip fracture. The nature of the fall is not clear then if it was syncopal or musculoskeletal. She had numerous pauses on telemetry and that led to permanent pacemaker implantation. Since that time, he does not appear that she has had any further falls but has been having ongoing hip issues requiring another surgery. Hence VB nausea. Patient herself does not have any cardiac symptoms whatsoever. No anginal-type chest pains or shortness of breath or in fact anything else from cardiac standpoint. Review of Systems Review of Systems: Yes all other systems are reviewed and are negative Cardiovascular: Cardiovascular: Reports as per HPI, Reports no additional cardiovascular complaints, Denies acrocyanosis, Denies cool extremities, Denies painful fingertips, Denies chest pain, Denies chest pain at rest, Denies diaphoresis, Denies syncope, Denies irregular heart rhythm, Denies claudication, Denies leg edema, Denies lightheadedness, Denies palpitations and Denies dyspnea Respiratory: Respiratory: Denies dyspnea Neurologic: Denies syncope Endocrine: Endocrine: Denies palpitations PMFSH Past Medical History Medical History Balance disorder Closed dislocation of right hip Closed hip fracture Dementia Displaced fracture of right femoral neck Hip dislocation, right History of pacemaker Hypothyroidism Increased urinary frequency Lactose intolerance Left leg weakness Memory loss PTSD (post-traumatic stress disorder) Sinus arrest Sinus pause Symptomatic bradycardia Syncope Tobacco dependence Urinary incontinence Family History Pertinent family history: No pertinent family history. Surgical History Surgical History Hx of total hip arthroplasty No pertinent past surgical history Status post hip hemiarthroplasty Social History Social History Household Members: Spouse Housing: Apartment Do you presently have visiting nurse or other home services: Yes Unable to assess alcohol history related to: Unknown Alcohol intake: current Alcohol intake frequency: does not drink Patient Tobacco Use Status: Current someday Tobacco user Tobacco use type: Cigarette Cigarettes Per Day: 4 Years Smoked: since teen years per pt Smoked in Last 30 Days: Yes e-Cigarette/Vaping Use: Never Used Patient Interested in Nicotine Replacement: Yes Patient Given Instructions on How to Stop Smoking: No Second Hand Smoke Exposure: Yes Use of substances other than those prescribed or required for medical reasons: No Substance Use Type: Marijuana Currently Displaying Signs/Symptoms of Drug Intoxication Withdrawal: No Have you been hit, kicked, punched, or otherwise hurt by someone within the past year? If so, by whom?: No Do you feel safe in your current relationship?: Yes Is there a partner from a previous relationship who is making you feel unsafe now?: Yes Are you made to feel afraid or neglected: No Advance Directives: No Do you have thoughts of harming others: None Do you have a plan to hurt others: No Plan Recently lost weight without trying: No Nutrition Risks: No Nutritional Risk Patient : No : No Poor oral hygiene: No service: No Current occupational status: disabled Current occupation: rt handed Meds Allergies Allergy/AdvReac Type Severity Reaction Status Date / Time [place] nut Allergy Unknown Verified 07/20/21 13:30 lactose Allergy Diarrhea Verified 07/20/21 13:29 Active Medications: Current Medications Generic Name Dose Route Start Last Admin Trade Name Freq PRN Reason Stop Dose Admin Acetaminophen 650 mg 07/23/21 17:12 Acetaminophen Supp 650 Mg Supp.Rect [place] Q6H PRN Pain, Mild (Pain Scale 1-3) Docusate Sodium 100 mg 07/23/21 21:00 07/25/21 07:53 Docusate Sodium 100 Mg Capsule PO Not Given BID JOMAR Hydromorphone HCl 0.25 mg 07/23/21 17:12 Hydromorphone Hcl 0.5 Mg/0.5 Ml Syringe IVPUSH Q4H PRN Pain, Severe (Pain Scale 7-10) Protocol Dextrose/Sodium Chloride 1,000 mls @ 80 mls/hr 07/23/21 17:12 07/25/21 11:04 D51/2ns IVCONT 80 mls/hr .[id number] JOMAR Administration Ondansetron HCl 4 mg 07/23/21 17:12 Ondansetron Hcl 4 Mg/2 Ml Vial IVPUSH Q8H PRN Nausea and Vomiting Oxycodone HCl 5 mg 07/23/21 17:12 07/24/21 22:48 Oxycodone Hcl Immed Release 5 Mg Tablet PO 5 mg Q4H PRN Administration Pain, Moderate (Pain Scale 4-6 Pharmacy Consult 1 each 07/23/21 12:08 Consult Rx Perform Med Rec MISCELLANE ONCE PRN Consult order Home Medications Medication Instructions Recorded Confirmed Last Taken Type acetaminophen 325 mg tablet 650 mg PO Q6H PRN 07/20/21 07/23/21 Unknown History aspirin 325 mg tablet 325 mg PO BID 07/20/21 07/23/21 07/23/21 History nicotine 14 mg/24 hr daily 1 patch TOPICAL DAILY 07/23/21 07/23/21 07/21/21 History transdermal patch Physical Exam Vital Signs: Vital Signs: Last Vital Signs Temp 98.4 F 07/25/21 08:00 Pulse 97 07/25/21 08:00 Resp 18 07/25/21 08:00 BP 110/52 L 07/25/21 08:00 Pulse Ox 97 07/25/21 08:00 Body Mass Index 25.1 Const: General: cooperative and no acute distress HENMT: Other: Unremarkable Neck: Neck: Yes normal visual inspection Chest: Chest palpation & inspection: normal inspection of the chest Resp: Auscultation: clear to auscultation bilaterally, no crackles and no wheezes Cardio: Jugular venous distension: no JVD Palpation: normal PMI Heart sounds: S1 normal heart sound present, S2 normal heart sound present, no gallops, no murmurs and no rubs GI: Palpation (GI): Soft to palpation Back/Spine/Pelvis: Other: unremarkable Skin: General skin exam: no rashes or lesions noted Neuro: Cranial nerves: Yes Other cranial nerve findings present Extrem: General: Yes no clubbing, cyanosis or edema Psych: Mental Status: other Results Labs and Meds Result diagrams: 07/25/21 04:47 07/25/21 04:47 Lab results: Laboratory Results - last 24 hr 07/25/21 07/25/21 04:47 04:47 WBC 17.9 H RBC 3.78 L Hgb 10.5 L Hct 33.0 L MCV 87.3 MCH 27.8 MCHC 31.8 RDW 14.2 Plt Count 516 H MPV 10.1 Immature Gran % (Auto) 0.6 H Neut % (Auto) 76.3 H Lymph % (Auto) 15.1 L [place] % (Auto) 7.2 Eos % (Auto) 0.5 Baso % (Auto) 0.3 Lymph # (Auto) 2.7 [place] # (Auto) 1.3 H Eos # (Auto) 0.1 Baso # (Auto) 0.1 Abs Immat Gran (auto) 0.11 H Absolute Neuts (auto) 13.6 H Absolute Nucleated RBC 0.000 Nucleated RBC % (auto) 0.0 Sodium 133 L Potassium 3.9 Chloride 100 Carbon Dioxide 23 Anion Gap 14 BUN 9 Creatinine 0.62 Estim Creat Clear Calc 88.0 Estimated GFR > 60 Fasting Glucose 113 H Calcium 8.8 ECG Interpretation: EKG with normal sinus rhythm at 93/minute; no significant ST-T changes and otherwise unremarkable. Assessment and Plan (1) Preoperative cardiovascular examination: Status: Acute (2) Normally functioning cardiac pacemaker present: Status: Acute Per last echocardiogram, LVEF was 65-70% without any obvious valvular pathology; there was mild pulmonary hypertension. Based on the remote pacemaker check from June, normal function. There was no significant pacing are any high ventricular rates. Overall, may proceed with hip surgery as planned. Intermediate cardiac risk. Procedures Date of Service Date of Service: 07/25/21
[2021-07-25] MEDS: Acetaminophen Supp 650 MG SUPP.RECT PR (21:25)
[2021-07-25] MEDS: Docusate Sodium 100 MG CAPSULE PO (21:25)
[2021-07-26] VITALS (10 sets, daily range): BP systolic 99–131; BP diastolic 57–68; PULSE 82–107; RESP 16–20; TEMP 36.2–37.8; O2SAT 95–100; BMI 29.0
[2021-07-26 05:51] LABS: MANUAL DIFF FLAG NO
[2021-07-26 05:57] LABS: Basophils Absolute Auto 0.1 X10*3/uL (0.0-0.2); Basophils Percent Auto 0.2 % (0-2); Eosinophils Absolute Auto 0.1 X10*3/uL (0.0-0.4); Eosinophils Percent Auto 0.3 % (0-4); Hematocrit 31.9 % (37-47); Hemoglobin 10.3 g/dl (12.0-16.0); Imm Gran Abs Auto 0.18 X10*3/uL (0.00-0.03); Imm Gran Pct Auto 0.8 % (0.0-0.4); Lymphocytes Absolute Auto 1.9 X10*3/uL (1.2-4.9); Mean Corpuscular HGB Conc 32.3 g/dl (31.0-35.0); Mean Corpuscular Hemoglobin 27.8 pg (27.0-33.0); Mean Corpuscular Volume 86.2 fL (80-98); Mean Platelet Volume 9.9 fL (9.4-12.3); Monocytes Absolute Auto 1.5 X10*3/uL (0.1-1.2); Monocytes Percent Auto 6.8 % (2-11); Neutrophils Absolute Auto 17.9 X10*3/uL (2.0-8.3); Neutrophils Percent Auto 82.9 % (45-73); Platelet Count 437 X10*3/uL (160-400); Red Cell Distribution Width 14.1 % (11.0-16.0); White Blood Count 21.6 X10*3/uL (4.8-10.8)
[2021-07-26 06:24] LABS: Anion Gap 14 (12-20); Blood Urea Nitrogen 6 mg/dL (9-16); Carbon Dioxide 24 mmol/L (22-29); Chloride 102 mmol/L (96-108); Creatinine Clr Calc Pharmacy 92.4; Estimated Glomerular Filt Rate > 60; Glucose Fasting 100 mg/dL (60-99); Potassium 3.7 mmol/L (3.3-5.1); Sodium 136 mmol/L (135-145)
[2021-07-26] MEDS: Docusate Sodium 100 MG CAPSULE PO ×2 (08:58→21:09)
[2021-07-26 11:19] LABS: Adenovirus PCR Not Detected (Not Detect.); Bordetella parapertussis PCR Not Detected (Not Detect.); Bordetella pertussis PCR Not Detected (Not Detect.); Chlamydia pneumoniae PCR Not Detected (Not Detect.); Coronavirus 229E PCR Not Detected (Not Detect.); Coronavirus HKU1 PCR Not Detected (Not Detect.); Coronavirus NL63 PCR Not Detected (Not Detect.); Coronavirus OC43 PCR Not Detected (Not Detect.); Human metapneumovirus PCR Not Detected (Not Detect.); Influenza A PCR Not Detected (Not Detect.); Influenza B PCR Not Detected (Not Detect.); Mycoplasma pneumoniae PCR Not Detected (Not Detect.); Parainfluenza 1 PCR Not Detected (Not Detect.); Parainfluenza 2 PCR Not Detected (Not Detect.); Parainfluenza 3 PCR Not Detected (Not Detect.); Parainfluenza 4 PCR Not Detected (Not Detect.); RSV PCR Not Detected (Not Detect.); Rhino/Enterovirus PCR Not Detected (Not Detect.); SARS-CoV-2 PCR Not Detected (Not Detect.)
--- NOTE | 2021-07-26 11:39 | PM.IMPN ---
Progress Note: A&P (1) Fever: Status: Acute (2) Leukocytosis (leucocytosis): Status: Acute (3) Hypothyroidism: Status: Acute (4) Dementia: Status: Acute Assessment and Plan: 56 yo F who sustained a mechanical fall in May 2021 and underwent a successful operative repair. She has since then? had multiple falls and? dislocated the right hip hip and in fact was discharged just a day before this readmisson for the same thing. There is no report of? syncope.? She is planned for reduction in OR Fever and leukocytosis No obvious signs of infection Blood cultures, urinalysis, chest x-ray Follow results Pre-op eval, Right dislocated hip for operative repair Of likely girdle stone. seen and evaluated by Cardiology and cleared for surgery with intermediate cardiac risk Hypothyroidism continue synthroid Dementia without behavioral disturbances continue to use non-pharmacological methods as much as possible Heart-block s/p PPM no active issues, monitor, cardiology to consider if need be interogated. Leukocytosis--probably reactive, check UA, there if no fever DVT prophylaxis as per surgical team Attending Dr. Geller Subjective Subjective Date of Service: 07/26/21 Review of Systems Follow-up the hip dislocation, plan for Girdlestone resection Patient has dementia, able to give minimal information respiratory denies any shortness cardiovascular Denies chest pain gastrointestinal denies abdominal pain Musculoskeletal reports pain with movement to lower extremity (hip dislocation) all other systems reviewed are negative Physical Exam Vital Signs: Vital Signs: Last Vital Signs Temp 99.8 F 07/26/21 11:35 Pulse 97 07/26/21 11:35 Resp 20 07/26/21 11:35 BP 102/58 L 07/26/21 11:35 Pulse Ox 96 07/26/21 11:35 Body Mass Index 25.1 Appearing in no acute distress lung sounds are clear to auscultation heart regular rate rhythm, clear S1, S2 positive bowel sounds, abdomen is soft, nontender neuro patient is alert x3, no focal deficits Objective Data Current Medications Generic Name Dose Route Start Last Admin Trade Name Freq PRN Reason Stop Dose Admin Acetaminophen 650 mg 07/23/21 17:12 07/25/21 21:25 Acetaminophen Supp 650 Mg Supp.Rect SD 650 mg Q6H PRN Administration Pain, Mild (Pain Scale 1-3) Docusate Sodium 100 mg 07/23/21 21:00 07/26/21 08:58 Docusate Sodium 100 Mg Capsule PO 100 mg BID JOMAR Administration Hydromorphone HCl 0.25 mg 07/23/21 17:12 Hydromorphone Hcl 0.5 Mg/0.5 Ml Syringe IVPUSH Q4H PRN Pain, Severe (Pain Scale 7-10) Protocol Dextrose/Sodium Chloride 1,000 mls @ 80 mls/hr 07/23/21 17:12 07/25/21 22:39 D51/2ns IVCONT 80 mls/hr .[id number] JOMAR Administration Ondansetron HCl 4 mg 07/23/21 17:12 Ondansetron Hcl 4 Mg/2 Ml Vial IVPUSH Q8H PRN Nausea and Vomiting Oxycodone HCl 5 mg 07/23/21 17:12 07/24/21 22:48 Oxycodone Hcl Immed Release 5 Mg Tablet PO 5 mg Q4H PRN Administration Pain, Moderate (Pain Scale 4-6 Pharmacy Consult 1 each 07/23/21 12:08 Consult Rx Perform Med Rec MISCELLANE ONCE PRN Consult order Labs CBC & Chem 7: 07/26/21 05:32 07/26/21 05:32 Labs: Laboratory Results - last 24 hr 07/26/21 07/26/21 05:32 05:32 MCV 86.2 MCH 27.8 MCHC 32.3 RDW 14.1 Plt Count 437 H MPV 9.9 Immature Gran % (Auto) 0.8 H Neut % (Auto) 82.9 H Lymph % (Auto) 9.0 L [place] % (Auto) 6.8 Eos % (Auto) 0.3 Baso % (Auto) 0.2 Lymph # (Auto) 1.9 [place] # (Auto) 1.5 H Eos # (Auto) 0.1 Baso # (Auto) 0.1 Abs Immat Gran (auto) 0.18 H Absolute Neuts (auto) 17.9 H Absolute Nucleated RBC 0.000 Nucleated RBC % (auto) 0.0 Anion Gap 14 Estim Creat Clear Calc 92.4 Estimated GFR > 60 Fasting Glucose 100 H Calcium 9.0 Quality Stroke Does the patient have a stroke diagnosis?: No VTE Prior VTE?: No VTE Risk Level:: Surgical - high VTE Device Contraindication: N/A - Device Ordered VTE Drug Contraindication: N/A - Med Ordered
--- NOTE | 2021-07-26 13:36 | MHC.CLN ---
NUTRITION CONSULT NUTRITION CONSULT FOR WEAKNESS. VISITED PATIENT AT LUNCH TIME WITH PRESENT. FEEDING SELF LUNCH. REPORTS THAT PATIENT HAS GOOD APPETITE AT HOME. MOST RECENT WEIGHT APPEARS TO BE ERROR, WITH STATING THAT PATIENT IS GAINING WEIGHT. DIET=REGULAR. NO ADDITIONAL NUTRITION RECOMMENDATIONS.
[2021-07-26 15:26] LABS: Appearance Urine CLEAR; Color Urine YELLOW; Glucose Urine UA NEG (NEG); Leukocyte Esterase Urine NEG (NEG); Nitrite Urine NEG (NEG); Specific Gravity - Urine >= 1.030 (1.005-1.025); UACC Culture Trigger NO; Urine Blood NEG (NEG); Urine Ketones NEG (NEG); Urine Protein 1+ MG/DL (NEG-TRACE)
[2021-07-26 15:39] LABS: Bacteria Urine TRACE /LPF; Calcium Oxalate Crystals Urine 3+ /LPF; RBC Urine 0-2 /HPF (0); Squamous Epithelial Cell Urine 4+ /LPF; Urine Talc Crystals TRACE /LPF; WBC Urine 0-2 /HPF (0-4)
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
[2021-07-26] MEDS: oxyCODONE HCl Immed Release 5 MG TABLET PO (21:08)
[2021-07-27] VITALS (13 sets, daily range): BP systolic 95–114; BP diastolic 45–68; PULSE 87–103; RESP 15–18; TEMP 36.3–37.5; O2SAT 95–98
[2021-07-27 06:04] LABS: MANUAL DIFF FLAG NO
[2021-07-27 06:08] LABS: Basophils Absolute Auto 0.1 X10*3/uL (0.0-0.2); Basophils Percent Auto 0.3 % (0-2); Eosinophils Absolute Auto 0.2 X10*3/uL (0.0-0.4); Eosinophils Percent Auto 0.8 % (0-4); Hematocrit 30.2 % (37-47); Hemoglobin 9.8 g/dl (12.0-16.0); Imm Gran Abs Auto 0.24 X10*3/uL (0.00-0.03); Imm Gran Pct Auto 1.3 % (0.0-0.4); Lymphocytes Percent Auto 10.6 % (20-40); Mean Corpuscular HGB Conc 32.5 g/dl (31.0-35.0); Mean Corpuscular Hemoglobin 27.8 pg (27.0-33.0); Mean Corpuscular Volume 85.6 fL (80-98); Mean Platelet Volume 9.6 fL (9.4-12.3); Monocytes Absolute Auto 1.1 X10*3/uL (0.1-1.2); Monocytes Percent Auto 5.9 % (2-11); Neutrophils Absolute Auto 15.3 X10*3/uL (2.0-8.3); Neutrophils Percent Auto 81.1 % (45-73); Platelet Count 425 X10*3/uL (160-400); Red Blood Count 3.53 X10*6/uL (4.20-5.50); Red Cell Distribution Width 14.2 % (11.0-16.0); White Blood Count 18.8 X10*3/uL (4.8-10.8)
[2021-07-27] MEDS: Dextrose 5 % and 0.45 % NaCl 1,000 ML 50 ML IVCONT (06:23)
[2021-07-27] MEDS: HYDROmorphone HCl 0.5 MG/0.5 ML SYRINGE 0.25 MG IVPUSH ×2 (06:23→14:13)
[2021-07-27 06:30] LABS: Anion Gap 13 (12-20); Blood Urea Nitrogen 10 mg/dL (9-16); Calcium 9.1 mg/dL (8.4-10.2); Carbon Dioxide 25 mmol/L (22-29); Chloride 100 mmol/L (96-108); Creatinine Clr Calc Pharmacy 104.1; Estimated Glomerular Filt Rate > 60; Glucose Random 90 mg/dL (60-115); Potassium 3.7 mmol/L (3.3-5.1); Sodium 134 mmol/L (135-145)
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
--- NOTE | 2021-07-27 08:24 | MHC.SHP ---
Pre-Procedural Eval Section A Date of Service: 07/27/21 The patient is an INPATIENT: Yes Changes since office visit: Yes Patient answered all questions; No Cold of Flu in the past 2 weeks, No New Medical Problems and No Changes in Medication The History & Physical has been completed within 30 days and I have reviewed it.: Yes Section B Chief Complaint: r hip pain Allergies: Allergies Allergy/AdvReac Type Severity Reaction Status Date / Time [place] nut Allergy Unknown Verified 07/20/21 13:30 lactose Allergy Diarrhea Verified 07/20/21 13:29 Plan I have reviewed the history and physical and performed a pertinent physical examination on my patient. No changes have occurred unless specified.
--- NOTE | 2021-07-27 10:23 | P.BOP_ITS ---
Brief Operative Note Date of Service: 07/27/21 Pre-op diagnosis: right prosthetic hip instability Post-op diagnosis: same Procedure: revision left hip arthroplasty Surgeon: Earnest Zafar MD Anesthesia: GETA Was an Radiology Specialist used for this Procedure?: Yes Radiology Specialist: Jose F Henriquez Estimated blood loss (mL): 150 IV fluids (mL): 800 Pathology: none sent Condition: stable Disposition: PACU
[2021-07-27] MEDS: oxyCODONE HCl Immed Release 5 MG TABLET PO (11:30)
--- NOTE | 2021-07-27 12:07 | W.PM.OPN ---
Operative Note Operative Note Date of Service: 07/27/21 Narrative: Pre-op diagnosis: right prosthetic hip instability Post-op diagnosis: same Procedure: revision left hip arthroplasty Surgeon: Earnest Zafar MD Anesthesia: MARYA Was an Thermodynamics Engineer used for this Procedure?: Yes Thermodynamics Engineer: Jose F Henriquez Estimated blood loss (mL): 150 IV fluids (mL): 800 Pathology: none sent Condition: stable Disposition: PACU Procedure in detail: Patient was brought to the operating room placed in the left lateral decubitus position. All bony prominences were well padded she was prepped and draped in standard sterile fashion. Time-out was called to identify proper site proper procedure proper surgeon and IV antibiotics per weight were administered. I began by opening up the previous incision. There was abundant hematoma without evidence of infection. I dissected down through the fascia to the deep hip. This was dislocated. The anterior 3rd of the abductor tendon was not present. The majority of the medius tendon was intact however. I debrided all necrotic tissue and some of the scar tissue around the capsule and was able to reduce the hip but it easily dislocated anteriorly easily. I therefore removed the bipolar component. This was a 42. I trialed with +4/41 bipolar component and felt that there was increased stability. It was difficult to reduce and more difficult to dislocate than had been previously but still not reliably stable in adduction and external rotation. I examined the femoral component was well fixed and the version was appropriate therefore after copious irrigation and debridement of scar tissue I placed a +4/41 bipolar component and reduced the hip. It was stable at all ranges with improved flexion and internal rotation compared to prior. I then irrigated copiously with 6 L of warm saline and performed a 3 minutes iodine soak. I then closed and standard layered fashion with bria and a Provena dressing on the skin. Patient was extubated brought to recovery room in a stable condition a abduction pillow should be placed and patient should be instructed to avoid external rotation flexion and abduction.
[2021-07-27] MEDS: Dextrose 5 % and 0.9 % NaCl 1,000 ML 80 ML IVCONT ×2 (13:07→23:47)
[2021-07-27] MEDS: ceFAZolin Sodium/Dextrose,Iso 2 GM/50 ML PIGGYBACK IV (15:52)
--- NOTE | 2021-07-27 18:46 | PC.NURSE ---
NOTED BRUIZED AREA ON PATIENTS BUTTOCKS, RAMON Engel WOUND RN NOTIFIED TO EVALUATE.
[2021-07-27] MEDS: Docusate Sodium 100 MG CAPSULE PO (20:15)
[2021-07-28] VITALS (9 sets, daily range): BP systolic 100–122; BP diastolic 51–60; PULSE 92–114; RESP 16–18; TEMP 36.3–37.6; O2SAT 94–99; BMI 29.0
[2021-07-28] MEDS: ceFAZolin Sodium/Dextrose,Iso 2 GM/50 ML PIGGYBACK IV ×2 (02:58→14:36)
[2021-07-28] MEDS: oxyCODONE HCl Immed Release 5 MG TABLET PO ×4 (03:01→14:35)
[2021-07-28 05:37] LABS: MANUAL DIFF FLAG NO
[2021-07-28 05:50] LABS: Basophils Percent Auto 0.2 % (0-2); Eosinophils Percent Auto 0.2 % (0-4); Hematocrit 23.8 % (37-47); Hemoglobin 7.8 g/dl (12.0-16.0); Imm Gran Abs Auto 0.21 X10*3/uL (0.00-0.03); Imm Gran Pct Auto 1.2 % (0.0-0.4); Lymphocytes Absolute Auto 2.3 X10*3/uL (1.2-4.9); Mean Corpuscular HGB Conc 32.8 g/dl (31.0-35.0); Mean Corpuscular Hemoglobin 27.9 pg (27.0-33.0); Mean Platelet Volume 10.3 fL (9.4-12.3); Monocytes Absolute Auto 1.1 X10*3/uL (0.1-1.2); Neutrophils Absolute Auto 14.2 X10*3/uL (2.0-8.3); Neutrophils Percent Auto 79.4 % (45-73); Platelet Count 434 X10*3/uL (160-400); Red Cell Distribution Width 14.1 % (11.0-16.0); White Blood Count 17.8 X10*3/uL (4.8-10.8)
[2021-07-28 06:14] LABS: Anion Gap 14 (12-20); Blood Urea Nitrogen 8 mg/dL (9-16); Calcium 8.3 mg/dL (8.4-10.2); Carbon Dioxide 23 mmol/L (22-29); Chloride 101 mmol/L (96-108); Creatinine Clr Calc Pharmacy 102.3; Estimated Glomerular Filt Rate > 60; Glucose Fasting 126 mg/dL (60-99); Potassium 3.5 mmol/L (3.3-5.1); Sodium 134 mmol/L (135-145)
--- NOTE | 2021-07-28 06:52 | HO.POSTANES ---
Post Anesthesia Evaluation Post Anesthesia Evaluation Vital Signs: Vital Signs Temp Pulse Resp BP Pulse Ox 07/27/21 23:30 99.5 F 103 H 16 96/54 L 98 07/27/21 19:52 98 F 100 18 100/64 96 Anesthesia: General Mental Status: Awake Pain Control: Satisfactory Nausea/Vomiting: None Hydration: Adequate Anesthesia-Related Issues: No Anes. Related Issues
[2021-07-28] MEDS: Docusate Sodium 100 MG CAPSULE PO ×2 (07:31→20:32)
--- NOTE | 2021-07-28 07:38 | PM.PNORT ---
Subjective Subjective Date of Service: 07/28/21 Interval history: POD1 s/p right hip revision enrique. Patient is resting comfortably in bed. No overnight events. Pain is well managed. No additional complaints. Physical Exam Vital Signs: Vital Signs: Last Vital Signs Temp 99.5 F 07/27/21 23:30 Pulse 103 H 07/27/21 23:30 Resp 16 07/27/21 23:30 BP 96/54 L 07/27/21 23:30 Pulse Ox 98 07/27/21 23:30 Body Mass Index 29.0 Const: General: cooperative, healthy appearing and no acute distress Resp: Effort & Inspection: normal respiratory effort and able to speak in complete sentences Cardio: Rate: regular rate Peripheral pulses: Peripheral pulses 2+ throughout GI: Palpation (GI): Soft to palpation Skin: Lesions: no lesions Rashes: no rashes Extrem: Other: Right hip prevena is clean, dry, intact, and suctioning. No ecchymosis, redness, or edema. Patient is able to move digits. Sensation intact. Procedures Date of Service Date of Service: 07/28/21 Progress Note: A&P Assessment and plan (1) Dislocation, hip closed: Status: Acute Assessment and Plan: Continue pain mgmnt begin PT for right hip enrique Begin Lovenox 23 hrs post op for DVT ppx Transfuse 2 units PRBCs Dispo planning-Pending PT eval, pain mgmnt Fall Risk Details Current Medications: Current Medications Generic Name Dose Route Start Last Admin Trade Name Freq PRN Reason Stop Dose Admin Acetaminophen 325 mg 07/27/21 11:57 Acetaminophen 325 Mg Tablet PO Q4H PRN Pain, Mild (Pain Scale 1-3) Docusate Sodium 100 mg 07/23/21 21:00 07/28/21 07:31 Docusate Sodium 100 Mg Capsule PO 100 mg BID JOMAR Administration Hydromorphone HCl 0.25 mg 07/23/21 17:12 07/27/21 14:13 Hydromorphone Hcl 0.5 Mg/0.5 Ml Syringe IVPUSH 0.25 mg Q4H PRN Administration Pain, Severe (Pain Scale 7-10) Protocol Dextrose/Sodium Chloride 1,000 mls @ 80 mls/hr 07/27/21 12:45 07/27/21 23:47 D5ns IVCONT 80 mls/hr .[id number] JOMAR Administration Cefazolin Sodium/Dextrose 2 gm in 50 mls @ 100 mls/hr 07/27/21 15:15 07/28/21 03:42 Ancef IV Infused Q12H JOMAR Infusion Ondansetron HCl 4 mg 07/23/21 17:12 Ondansetron Hcl 4 Mg/2 Ml Vial IVPUSH Q8H PRN Nausea and Vomiting Oxycodone HCl 5 mg 07/23/21 17:12 07/28/21 07:31 Oxycodone Hcl Immed Release 5 Mg Tablet PO 5 mg Q4H PRN Administration Pain, Moderate (Pain Scale 4-6 Time Spent With Patient Time: Total time spent is greater than 50% in coordination of care (as documented) at patient's floor/unit and/or counseling patient: Time with patient: less than 15 minutes Quality Stroke Does the patient have a stroke diagnosis?: No VTE Prior VTE?: No VTE Risk Level:: Surgical - high VTE Device Contraindication: N/A - Device Ordered VTE Drug Contraindication: N/A - Med Ordered
[2021-07-28] MEDS: Enoxaparin Sodium 40 MG/0.4 ML SYRINGE SUBCUT (08:06)
--- NOTE | 2021-07-28 10:43 | PC.NURSE ---
Skin/wound assessment completed today. On admission patient has Stage 2 coccyx/buttocks-Triad applied to wound bed covered with small gauze and foam dressing. Right ankle has a stage 2 pressure injury- Triad applied cover with small gauze/foam dressing. Patient has wound vac to right hip incision. No other skin issues noted at this time.
--- NOTE | 2021-07-28 11:34 | MHC.CLN ---
NUTRITION CONSULT ADDED ENSURE ENLIVE 240 ML BID AND JALYN ONE PACKET BID (860 KCAL, 45 G PROTEIN) TO PROMOTE WOUND HEALING.
--- NOTE | 2021-07-28 15:58 | MHC.CM.PN ---
EMR REVIEWED, PT S/P RIGHT HIP REVISION W/PROVENA WOUND VAC, NO D/C PLANNED FOR TODAY, D/C PLAN IS TO [place] OF FOR STR ONCE CLEARED FOR D/C, REFERRAL UPDATED.
[2021-07-28] MEDS: Acetaminophen 325 MG TABLET PO (18:51)
--- NOTE | 2021-07-28 19:31 | P.EN_ITS ---
Event Note Date of Service: 07/28/21 Event Note: Fever: pt on abx sent repeat UA, blood Cx, CXR. Decub ulcers - wound mortgage loan computation clerk site has no surrounding redness
--- NOTE | 2021-07-28 19:31 | PM.EVENT ---
Event Note Date of Service: 07/28/21 Event Note: Fever: pt on abx sent repeat UA, blood Cx, CXR. Decub ulcers - wound literacy coach site has no surrounding redness
--- NOTE | 2021-07-28 19:41 | PC.NURSE ---
1645- Pt noted to be warm to touch. Rectal temp 103.1, pulse 116, BP 116/57, O2 93% RA, RR 16. Lung sounds diminished. Pt denies any symptoms. PRN Tylenol 325mg given. 2nd unit of blood on hold until vitals improve. [facility] made aware. Encouraged patient to use incentive spirometer. Hospitalist Dr. Glaser updated. CXR and U/A ordered. Per MD obtain H/H now, to assess if 2nd unit PRBC is still needed. Oncoming nurse updated.
[2021-07-28 20:04] LABS: Hematocrit 27.4 % (37-47); Hemoglobin 9.2 g/dl (12.0-16.0)
[2021-07-28 20:51] LABS: Appearance Urine CLEAR; Color Urine YELLOW; Glucose Urine UA NEG (NEG); Leukocyte Esterase Urine NEG (NEG); Nitrite Urine NEG (NEG); Specific Gravity - Urine 1.025 (1.005-1.025); Urine Blood NEG (NEG); Urine Ketones NEG (NEG); Urine Protein TRACE MG/DL (NEG-TRACE)
[2021-07-29] MEDS: ceFAZolin Sodium/Dextrose,Iso 2 GM/50 ML PIGGYBACK IV ×2 (03:11→14:19)
[2021-07-29] MEDS: Dextrose 5 % and 0.9 % NaCl 1,000 ML 80 ML IVCONT (03:13)
[2021-07-29 04:00] VITALS: BP 119/57; PULSE 96; RESP 16; TEMP 36.6; O2SAT 97
--- NOTE | 2021-07-29 05:55 | PC.NURSE ---
Due to pt previous conditions for temp, high pulse, MD ordered another set of H/H. H/H was 9.2/27.4. MD ordered to hold 2nd bag of blood.
[2021-07-29] MEDS: Enoxaparin Sodium 40 MG/0.4 ML SYRINGE SUBCUT (07:59)
[2021-07-29] MEDS: Docusate Sodium 100 MG CAPSULE PO (07:59)
[2021-07-29 08:00] VITALS: BP 122/57; PULSE 91; RESP 17; TEMP 37.1; O2SAT 97
[2021-07-29 08:17] LABS: MANUAL DIFF FLAG NO
[2021-07-29 08:21] LABS: Basophils Absolute Auto 0.1 X10*3/uL (0.0-0.2); Basophils Percent Auto 0.3 % (0-2); Eosinophils Absolute Auto 0.1 X10*3/uL (0.0-0.4); Eosinophils Percent Auto 0.7 % (0-4); Hematocrit 29.1 % (37-47); Hemoglobin 9.3 g/dl (12.0-16.0); Imm Gran Abs Auto 0.16 X10*3/uL (0.00-0.03); Imm Gran Pct Auto 0.9 % (0.0-0.4); Lymphocytes Absolute Auto 1.5 X10*3/uL (1.2-4.9); Lymphocytes Percent Auto 8.3 % (20-40); Mean Corpuscular Hemoglobin 27.7 pg (27.0-33.0); Mean Corpuscular Volume 86.6 fL (80-98); Mean Platelet Volume 9.6 fL (9.4-12.3); Monocytes Absolute Auto 0.8 X10*3/uL (0.1-1.2); Monocytes Percent Auto 4.3 % (2-11); Neutrophils Absolute Auto 15.4 X10*3/uL (2.0-8.3); Neutrophils Percent Auto 85.5 % (45-73); Platelet Count 400 X10*3/uL (160-400); Red Blood Count 3.36 X10*6/uL (4.20-5.50); Red Cell Distribution Width 14.3 % (11.0-16.0); White Blood Count 17.9 X10*3/uL (4.8-10.8)
--- NOTE | 2021-07-29 08:21 | P.DS_ITS ---
DS: Providers Provider Date of Service: 07/29/21 Date of admission: 07/23/21 12:10 Primary care physician: Marry Campuzano MD Consults: 07/23/21 13:16 Consult to Hospitalist Routine Consulting Provider: Hospitalist Reason For Exam: preoperative clearance for tony girdle stone 07/25/21 08:13 Consult to Cardiology Routine Consulting Provider: Stuart Brown Reason for consultation: pre op eval, DS: Diagnosis Discharge Diagnosis (1) Dislocation, hip closed: Status: Acute DS: Summary Hospital Course Hospital Course: The patient underwent a successful revision right hip enrique arthroplasty, was transferred to PACU and then to the floor to recover. During their stay, their vitals were stable, afebrile at on discharge 98.8 Labs were unremarkable, H/H on discharge 9.3/29.1 POD 1 she was started on Lovenox for DVT ppx, they also received physical therapy services . Prior to discharge, Prevena dressing applied and home unit changed. Physical therapy and occupational therapy patient is to work on gait training and balance. She is weight-bearing as tolerated. She should avoid flexion abduction and external rotation of the right lower extremity. Abduction pillow when at rest. Skin/wound assessment completed today. On admission patient has Stage 2 coccyx/buttocks-Triad applied to wound bed covered with small gauze and foam dressing. Right ankle has a stage 2 pressure injury- Triad applied cover with small gauze/foam dressing. Patient has wound vac to right hip incision. No other skin issues noted at this time. Time Spent with Patient Time attestation: Total time spent providing and/or coordinating discharge services: Discharge coordination time: Greater than 30 minutes Quality: Stroke Does the patient have a stroke diagnosis?: No Physical Exam 2 Vital Signs: Vital Signs: Last Vital Signs Temp 98.7 F 07/29/21 08:00 Pulse 91 07/29/21 08:00 Resp 17 07/29/21 08:00 BP 122/57 L 07/29/21 08:00 Pulse Ox 97 07/29/21 08:00 Body Mass Index 29.0 Extrem: Other: Prevena. [place] intact. No erythema or effusion. Calf supple nontender. Neurovascularly intact. DS: Data Data Completed and Pending Completed studies during hospitalization [Text1]: Procedures Insertion of Pacemaker Lead into Right Atrium, Percutaneous Approach (06/09/21) Insertion of Pacemaker Lead into Right Ventricle, Percutaneous Approach (06/09/21) Insertion of Pacemaker, Dual Chamber into Chest Subcutaneous Tissue and Fascia, Open Approach (06/09/21) Replacement of Right Hip Joint, Femoral Surface with Synthetic Substitute, Uncemented, Open Approach (06/09/21) Revision of Synthetic Substitute in Right Hip Joint, External Approach (07/07/21) Revision of Synthetic Substitute in Right Hip Joint, Femoral Surface, Open Approach (07/20/21) Labs on day of discharge: Laboratory Results - last 24 hr 07/27/21 07/28/21 07/28/21 08:10 19:50 20:35 Hgb 9.2 L Hct 27.4 L Urine Color YELLOW Urine Appearance CLEAR Urine pH 6.0 Ur Specific [place] 1.025 Urine Protein TRACE Urine Glucose (UA) NEG Urine Ketones NEG Urine Blood NEG Urine Nitrite NEG Ur Leukocyte Esterase NEG Blood Type O Positive Antibody Screen NEGATIVE Crossmatch See Detail Preliminary micro results at discharge 07/26/21 09:30 Blood Culture - Preliminary Blood - Venous No growth after 48 hours. 07/26/21 09:30 Blood Culture - Preliminary Blood - Venous No growth after 48 hours. Discharge Plan Discharge Patient Disposition: [facility] Discharge Diagnosis: revision right hip hemiarthroplasty Referrals: [facility] - Jorge Denise [Outside] - 1 Day (SHORT TERM REHAB) Marry Campuzano MD [Primary Care Provider] - 1 Week Discharge Medications: New acetaminophen 325 mg Tablet 325 mg PO Q4H PRN (Reason: Pain, Mild (Pain Scale 1-3)) 30 Days Qty: 240 RF: 0 enoxaparin 40 mg/0.4 mL Syringe 40 mg subcut Q24H 42 Days Qty: 16.8 RF: 0 docusate sodium 100 mg Capsule 100 mg PO BID 30 Days Qty: 60 RF: 0 oxycodone 5 mg tablet 5 mg PO Q4H PRN (Reason: pain) 7 Days Qty: 42 RF: 0 Continued nicotine 14 mg/24 hr patch 24 hour 1 patch topical DAILY RF: 0 cholecalciferol (vitamin D3) 25 mcg (1,000 unit) capsule 25 mcg PO DAILY Qty: 90 RF: 3 folic acid 1 mg tablet 1 mg PO DAILY Qty: 90 RF: 3 levothyroxine 75 mcg tablet 75 mcg PO DAILY Qty: 90 RF: 3 Discontinued acetaminophen 325 mg Tablet 650 mg PO Q6H PRN (Reason: pain/fever) RF: 0 aspirin 325 mg Tablet 325 mg PO BID RF: 0 oxycodone 5 mg Tablet 5 mg PO Q4H PRN (Reason: Pain, Moderate (Pain Scale 4-6) 7 Days Qty: 42 RF: 0 Discharge Orders: Discharge Order (Routine); Ordered 07/29/21 Ordered By: Jose F Henriquez Diet: regular diet Activity on Discharge: Use cane or walker Stand Alone Forms: Patient Portal Discharge page Care Plan Goals: Restore function of joint Health Concerns: none Plan of Treatment: Physical Therapy Pain management DVT prophylaxis Assessment: 1.Right hip prevena to remain intact and on at all times, if any concerns please call our office [facility] 2.Stage 2 coccyx/buttocks-Triad applied to wound bed covered with small gauze and foam dressing. --change daily 3.Right ankle has a stage 2 pressure injury- Triad applied cover with small gauze/foam dressing. --change daily Abduction pillow when resting Avoid position of ER of the right leg.
--- NOTE | 2021-07-29 08:27 | P.PNOP_ITS ---
Subjective Subjective Date of Service: 07/29/21 Interval history: POD 2 status post revision right hemiarthroplasty Patient is resting in bed Overnight she had a fever of 103 Chest x-ray significant for interstitial markings Second unit of blood on hold Physical Exam Vital Signs: Vital Signs: Last Vital Signs Temp 98.7 F 07/29/21 08:00 Pulse 91 07/29/21 08:00 Resp 17 07/29/21 08:00 BP 122/57 L 07/29/21 08:00 Pulse Ox 97 07/29/21 08:00 Body Mass Index 29.0 Const: General: cooperative, healthy appearing and no acute distress Resp: Effort & Inspection: normal respiratory effort and able to speak in complete sentences Cardio: Rate: regular rate Peripheral pulses: Peripheral pulses 2+ throughout GI: Palpation (GI): Soft to palpation Skin: General skin exam: no rashes or lesions noted Extrem: Other: Right hip Prevena intact no significant redness or swelling a round the area Procedures Date of Service Date of Service: 07/29/21 Progress Note: A&P Assessment and plan (1) History of hemiarthroplasty of right hip: Status: Acute Assessment and Plan: Continue pain management Continue antibiotics Continue PT/OT weight-bearing as tolerated Abduction pillow when resting to prevent leg from externally rotating Continue anti coag Discharge pending medical clearance Fall Risk Details Current Medications: Current Medications Generic Name Dose Route Start Last Admin Trade Name Freq PRN Reason Stop Dose Admin Acetaminophen 325 mg 07/27/21 11:57 07/28/21 18:51 Acetaminophen 325 Mg Tablet PO 325 mg Q4H PRN Administration Pain, Mild (Pain Scale 1-3) Docusate Sodium 100 mg 07/23/21 21:00 07/29/21 07:59 Docusate Sodium 100 Mg Capsule PO 100 mg BID JOMAR Administration Enoxaparin Sodium 40 mg 07/29/21 08:00 07/29/21 07:59 Enoxaparin Sodium 40 Mg/0.4 Ml Syringe SUBCUT 40 mg Q24H JOMAR Administration Dextrose/Sodium Chloride 1,000 mls @ 80 mls/hr 07/27/21 12:45 07/29/21 03:13 D5ns IVCONT 80 mls/hr .[id number] JOMAR Administration Cefazolin Sodium/Dextrose 2 gm in 50 mls @ 100 mls/hr 07/27/21 15:15 07/29/21 04:34 Ancef IV Infused Q12H JOMAR Infusion Ondansetron HCl 4 mg 07/23/21 17:12 Ondansetron Hcl 4 Mg/2 Ml Vial IVPUSH Q8H PRN Nausea and Vomiting Time Spent With Patient Time: Total time spent is greater than 50% in coordination of care (as documented) at patient's floor/unit and/or counseling patient: Time with patient: less than 15 minutes Quality Stroke Does the patient have a stroke diagnosis?: No VTE Prior VTE?: No VTE Risk Level:: Surgical - high VTE Device Contraindication: N/A - Device Ordered VTE Drug Contraindication: N/A - Med Ordered
[2021-07-29 08:49] LABS: Anion Gap 12 (12-20); Blood Urea Nitrogen 5 mg/dL (9-16); Calcium 8.1 mg/dL (8.4-10.2); Carbon Dioxide 26 mmol/L (22-29); Chloride 100 mmol/L (96-108); Creatinine Clr Calc Pharmacy 114.3; Estimated Glomerular Filt Rate > 60; Glucose Random 112 mg/dL (60-115); Potassium 3.2 mmol/L (3.3-5.1); Sodium 135 mmol/L (135-145)
--- NOTE | 2021-07-29 08:53 | HO.PM.IMPN ---
Subjective Subjective Date of Service: 07/29/21 Interval History: Seen in f/u, there is report of temp of 103 yesterday and none since then, patient feels fine this morning. Review of Systems no fever no sob no urinary symptoms Physical Exam Vital Signs: Vital Signs: Last Vital Signs Temp 98.7 F 07/29/21 08:00 Pulse 91 07/29/21 08:00 Resp 17 07/29/21 08:00 BP 122/57 L 07/29/21 08:00 Pulse Ox 97 07/29/21 08:00 Body Mass Index 29.0 General: oriented to self only , no acute distress Resp: CTA bilateral CVS: S1,S2,RRR GI: +BS, NT, no distention Skin: No rash, has a blister around right ankle doesn't seem infected Neuro: motor grossly intact Psych: appropriate affect Objective Data Active Medications Acetaminophen (Acetaminophen 325 Mg Tablet) 325 mg PO Q4H PRN PRN Reason: Pain, Mild (Pain Scale 1-3) Last Admin: 07/28/21 18:51 Dose: 325 mg Documented by: COLLEEN Docusate Sodium (Docusate Sodium 100 Mg Capsule) 100 mg PO BID [facility] Last Admin: 07/29/21 07:59 Dose: 100 mg Documented by: ABDI Enoxaparin Sodium (Enoxaparin Sodium 40 Mg/0.4 Ml Syringe) 40 mg SUBCUT Q24H [facility] Last Admin: 07/29/21 07:59 Dose: 40 mg Documented by: ABDI Dextrose/Sodium Chloride (D5ns) 1,000 mls @ 80 mls/hr IVCONT .[id number] [facility] Last Admin: 07/29/21 03:13 Dose: 80 mls/hr Documented by: DIANA Cefazolin Sodium/Dextrose (Ancef) 2 gm in 50 mls @ 100 mls/hr IV Q12H [facility] Last Infusion: 07/29/21 04:34 Dose: 0 mls/hr Documented by: DIANA Ondansetron HCl (Ondansetron Hcl 4 Mg/2 Ml Vial) 4 mg IVPUSH Q8H PRN PRN Reason: Nausea and Vomiting Labs CBC & Chem 7: 07/29/21 08:06 07/29/21 08:06 Labs: Laboratory Results - last 24 hr 07/27/21 07/28/21 07/29/21 08:10 20:35 08:06 MCV 86.6 MCH 27.7 MCHC 32.0 RDW 14.3 Plt Count 400 MPV 9.6 Immature Gran % (Auto) 0.9 H Neut % (Auto) 85.5 H Lymph % (Auto) 8.3 L [place] % (Auto) 4.3 Eos % (Auto) 0.7 Baso % (Auto) 0.3 Lymph # (Auto) 1.5 [place] # (Auto) 0.8 Eos # (Auto) 0.1 Baso # (Auto) 0.1 Abs Immat Gran (auto) 0.16 H Absolute Neuts (auto) 15.4 H Absolute Nucleated RBC 0.000 Nucleated RBC % (auto) 0.0 Anion Gap Estim Creat Clear Calc Estimated GFR Random Glucose Calcium Urine Color YELLOW Urine Appearance CLEAR Urine pH 6.0 Ur Specific [place] 1.025 Urine Protein TRACE Urine Glucose (UA) NEG Urine Ketones NEG Urine Blood NEG Urine Nitrite NEG Ur Leukocyte Esterase NEG Blood Type O Positive Antibody Screen NEGATIVE Crossmatch See Detail 07/29/21 08:06 MCV MCH MCHC RDW Plt Count MPV Immature Gran % (Auto) Neut % (Auto) Lymph % (Auto) [place] % (Auto) Eos % (Auto) Baso % (Auto) Lymph # (Auto) [place] # (Auto) Eos # (Auto) Baso # (Auto) Abs Immat Gran (auto) Absolute Neuts (auto) Absolute Nucleated RBC Nucleated RBC % (auto) Anion Gap 12 Estim Creat Clear Calc 114.3 Estimated GFR > 60 Random Glucose 112 Calcium 8.1 L Urine Color Urine Appearance Urine pH Ur Specific [place] Urine Protein Urine Glucose (UA) Urine Ketones Urine Blood Urine Nitrite Ur Leukocyte Esterase Blood Type Antibody Screen Crossmatch Microbiology Microbiology Results: Microbiology 07/26/21 09:30 Blood Culture - Preliminary Blood - Venous No growth after 48 hours. 07/26/21 09:30 Blood Culture - Preliminary Blood - Venous No growth after 48 hours. Assessment and Plan (1) Pre-op evaluation: Status: Acute Assessment and Plan: 56 yo F who sustained a mechanical fall in May 2021 and underwent a successful operative repair. She has since then? had multiple falls and? dislocated the right hip hip and in fact was discharged just a day before this readmisson for the same thing. There is no report of? syncope.? She is planned for reduction in OR #Right dislocated hip s/p revision on 07/27, further management per ortho # SIRS--fever, leukocytosis, no source of infection, elevated WBC could be reactive -empric Cefazolin, cultures are negative, including blood and urine, I think Abx should be on hold -additional blood cultures drawn # Hypothyroidism continue synthroid # Dementia without behavioral disturbances continue to use non-pharmacological methods as much as possible 4. Heart-block s/p PPM no active issues, monitor, Quality Stroke Does the patient have a stroke diagnosis?: No VTE Prior VTE?: No VTE Risk Level:: Surgical - high VTE Device Contraindication: N/A - Device Ordered VTE Drug Contraindication: N/A - Med Ordered
[2021-07-29 10:32] VITALS: BP 122/57; PULSE 91; O2SAT 97
[2021-07-29 11:56] LABS: COVID-19 Test Negative (Negative)
[2021-07-29 12:00] VITALS: BP 110/55; PULSE 93; RESP 16; TEMP 37.1; O2SAT 97
[2021-07-29 16:00] VITALS: BP 111/48; PULSE 104; RESP 18; TEMP 37.7; O2SAT 98
== END 2021-07-29 16:39 | disposition skilled nursing facility (03) | DRG 467 ==
LOC: HO.ED 12:09 → HO.S3 15:45
PROVIDERS: Hospitalist; Internal Medicine; Nurse Practitioner Acute Care; Orthopaedic Surgery; Physician Assistant; Admitting Provider Physician Assistant; Emergency Provider Emergency Medicine; PCP Internal Medicine; Visit Provider Physician Assistant
PROC: 0SR90JA Replacement of Right Hip Joint with Synthetic Substitute, Uncemented, Open Approach (ICD-10-PCS; principal; 2021-07-27 08:30)
DX: T84.020A Dislocation of internal right hip prosthesis, initial encounter (principal); R65.10 Systemic inflammatory response syndrome (SIRS) of non-infectious origin without acute organ dysfunction; E03.9 Hypothyroidism, unspecified; Z95.0 Presence of cardiac pacemaker; D72.829 Elevated white blood cell count, unspecified; F03.90 Unspecified dementia, unspecified severity, without behavioral disturbance, psychotic disturbance, mood disturbance, and anxiety; L89.152 Pressure ulcer of sacral region, stage 2; L89.512 Pressure ulcer of right ankle, stage 2; F17.210 Nicotine dependence, cigarettes, uncomplicated; Z71.6 Tobacco abuse counseling; R29.6 Repeated falls; Z91.81 History of falling; Z79.890 Hormone replacement therapy; Z79.899 Other long term (current) drug therapy
CPT/HCPCS: 36415; 71045; 73502; 80048; 81001; 81003; 83735; 85014; 85018; 85025; 85027; 86850; 86900; 86901; 86923; 87040; 87633; 87635; 93005; 97110; 97162; 97167; 97530; 99285; C1776; J0690; J1100; J1170; J1650; J2370; J2405; J3010; P9016

== ENCOUNTER → 2021-08-03 13:08 | Outpatient (BNVA) | payer OTHER, SELFPAY | PROVIDERS: Visit Provider Physician Assistant ==

== ENCOUNTER 2021-08-03 14:46 | Inpatient (IN) | payer OTHER, SELFPAY ==
[2021-08-03 15:35] VITALS: BP 100/55; PULSE 96; RESP 16; TEMP 37.2; O2SAT 95
[2021-08-03 16:00] VITALS: BP 103/58; PULSE 97; RESP 16; TEMP 37.1; O2SAT 95
[2021-08-03 16:22] VITALS: BMI 27.4
--- NOTE | 2021-08-03 16:50 | P.CONHOSP_ITS ---
History of Present Illness Data of Consult Service Date: 08/03/21 Requesting physician: Cristobal Zafar Primary Care Provider: Unknown Physician HPI Reason for consult: medical management 56 yo F with a PMH of early Dementia that seem stable, Hypothyroidism on replacement therapy, tobacco use, heart block s/p PPM, Hip Fx in May 2021 who is admitted and has been readmitted at least 3 times for dislocation usually reduced and discharged. Her last hospitalization date from july 24, underwwent revision left hip arthroplasty on July 27 and discharged to SNF on 07/29. She was seen in the ortho office today for follow up and noted to have drainage of the wound and is admitted for right hip instability and will likely be going to the OR exploration. She is not able to give me history, she dindn't look septic. Labs are pending. Review of Systems Review of Systems: no fever no sob looks comfortable. no hip pain drianage noted from the hip Yes all other systems are reviewed and are negative [facility] Medical History Balance disorder Closed dislocation of right hip Closed hip fracture Dementia Dementia Dislocation, hip closed Displaced fracture of right femoral neck Fever Hip dislocation, right History of pacemaker Hypothyroidism Hypothyroidism Increased urinary frequency Lactose intolerance Left leg weakness Leukocytosis (leucocytosis) Memory loss Normally functioning cardiac pacemaker present Pre-op evaluation Preoperative cardiovascular examination PTSD (post-traumatic stress disorder) Sinus arrest Sinus pause Symptomatic bradycardia Syncope Tobacco dependence Urinary incontinence Family History (Updated 08/03/21 @ 16:56 by Terrell Lange MD) Mother Unknown family medical history Father Unknown family medical history Pertinent family history: . Surgical History Hx of total hip arthroplasty No pertinent past surgical history Status post hip hemiarthroplasty Social History Household Members: Spouse Housing: Apartment Housing Other:: [facility] Do you presently have visiting nurse or other home services: No Unable to assess alcohol history related to: Unknown Alcohol intake: current Alcohol intake frequency: does not drink Patient Tobacco Use Status: Current someday Tobacco user Tobacco use type: Cigarette Cigarette Packs Per Day: 0.25 Cigarettes Per Day: 5.0 Years Smoked: since teen years per pt e-Cigarette/Vaping Use: Never Used Second Hand Smoke Exposure: Yes Use of substances other than those prescribed or required for medical reasons: No Substance Use Type: Marijuana Have you been hit, kicked, punched, or otherwise hurt by someone within the past year? If so, by whom?: No Do you feel safe in your current relationship?: Yes Is there a partner from a previous relationship who is making you feel unsafe now?: No Are you made to feel afraid or neglected: No Advance Directives: Yes Advance Directives on File: Yes Advance Directives Date on File: 06/16/21 Do you have thoughts of harming others: None Do you have a plan to hurt others: No Plan Recently lost weight without trying: Unsure Nutrition Risks: No Nutritional Risk Patient : No : No Poor oral hygiene: No service: No Current occupational status: disabled Current occupation: rt handed [employer] Allergies Allergy/AdvReac Type Severity Reaction Status Date / Time [place] nut Allergy Unknown Verified 08/03/21 13:11 lactose Allergy Diarrhea Verified 08/03/21 13:11 Active Medications: Current Medications Acetaminophen (Acetaminophen 325 Mg Tablet) 650 mg PO Q6H PRN PRN Reason: Pain, Mild (Pain Scale 1-3) Docusate Sodium (Docusate Sodium 100 Mg Capsule) 100 mg PO BID JOMAR Dextrose/Sodium Chloride (D51/2ns) 1,000 mls @ 80 mls/hr IVCONT .[id number] [facility] Ondansetron HCl (Ondansetron Hcl 4 Mg/2 Ml Vial) 4 mg IVPUSH Q8H PRN PRN Reason: nausea Oxycodone HCl (Oxycodone Hcl Immed Release 5 Mg Tablet) 5 mg PO Q4H PRN PRN Reason: Pain, Moderate (Pain Scale 4-6 Sodium Chloride (0.9 % Sodium Chloride Flush 3 Ml Syringe) 3 ml IVFLUSH QSHIFT [facility] Home Medications Medication Instructions Recorded Confirmed Last Taken Type nicotine 14 mg/24 hr daily 1 patch TOPICAL DAILY 07/23/21 07/23/21 07/21/21 History transdermal patch Physical Exam Vital Signs and Narrative: Vital Signs: Last Vital Signs Temp 98.7 F 08/03/21 16:00 Pulse 97 08/03/21 16:00 Resp 16 08/03/21 16:00 BP 103/58 L 08/03/21 16:00 Pulse Ox 95 08/03/21 16:00 Body Mass Index 27.4 Constitutional Awake and Alert, No apparent distress HEENT anciteric, Neck Supple, No lymphadenopathy Cardiovascular RRR, No M/R/G, S1 S2, No S3 S4, No pedal edema Respiratory Lungs clear, No respiratory distress Gastrointestinal Non tender, Non-distended Skin No rash, I saw the right hip wound with RN, there was no erythema but there was signficant drainage dark red fluid from the site. Neurological Alert & oriented x3 Psychological Appropriate affect Assessment and Plan (1) Visit for wound check: Status: Acute 56 yo F who sustained a mechanical fall in May 2021 and underwent a successful operative repair, and since then has had multiple dislocations and recently admitted from 07/24 to 07/29 for the same thing, she was underwent hip revision on 07/27 and seen in the office today and concern of hip instability and therefore admitted #Right hip wound with drainage. I suggest getting wound culture, blood culture and potentially started IV Abx with gram positive coverate especially give marked leukocytosis. She definately meets SIRS criteria and if wound is infected will meet sepsis criteria. # Hypothyroidism continue synthroid # Dementia without behavioral disturbances continue to use non-pharmacological methods as much as possible 4. Heart-block s/p PPM no active issues, monitor, DVT prophylaxis hold of heparin or Loveno given that she might go to surgery tomorrow. Discussed with ortho PA
[2021-08-03 17:00] LABS: MANUAL DIFF FLAG NO
[2021-08-03 17:06] LABS: Basophils Absolute Auto 0.1 X10*3/uL (0.0-0.2); Basophils Percent Auto 0.3 % (0-2); Eosinophils Absolute Auto 0.1 X10*3/uL (0.0-0.4); Eosinophils Percent Auto 0.6 % (0-4); Hematocrit 34.6 % (37-47); Hemoglobin 10.6 g/dl (12.0-16.0); Imm Gran Abs Auto 0.89 X10*3/uL (0.00-0.03); Imm Gran Pct Auto 4.6 % (0.0-0.4); Lymphocytes Absolute Auto 2.6 X10*3/uL (1.2-4.9); Lymphocytes Percent Auto 13.2 % (20-40); Mean Corpuscular HGB Conc 30.6 g/dl (31.0-35.0); Mean Corpuscular Volume 88.3 fL (80-98); Mean Platelet Volume 9.9 fL (9.4-12.3); Monocytes Absolute Auto 0.8 X10*3/uL (0.1-1.2); Monocytes Percent Auto 4.2 % (2-11); Neutrophils Absolute Auto 14.9 X10*3/uL (2.0-8.3); Neutrophils Percent Auto 77.1 % (45-73); Platelet Count 579 X10*3/uL (160-400); Red Blood Count 3.92 X10*6/uL (4.20-5.50); Red Cell Distribution Width 15.2 % (11.0-16.0); White Blood Count 19.3 X10*3/uL (4.8-10.8)
[2021-08-03] MEDS: 0.9 % Sodium Chloride Flush 3 ML SYRINGE IVFLUSH (17:13)
[2021-08-03] MEDS: Dextrose 5 % and 0.45 % NaCl 1,000 ML 80 ML IVCONT (17:13)
[2021-08-03 17:24] LABS: Anion Gap 18 (12-20); Blood Urea Nitrogen 11 mg/dL (9-16); Calcium 8.7 mg/dL (8.4-10.2); Carbon Dioxide 25 mmol/L (22-29); Chloride 101 mmol/L (96-108); Creatinine Clr Calc Pharmacy 103.3; Estimated Glomerular Filt Rate > 60; Glucose Random 88 mg/dL (60-115); Potassium 3.7 mmol/L (3.3-5.1); Sodium 140 mmol/L (135-145)
[2021-08-03 20:00] VITALS: BP 100/57; PULSE 104; RESP 18; TEMP 36.5; O2SAT 98
[2021-08-03] MEDS: Docusate Sodium 100 MG CAPSULE PO (21:58)
[2021-08-04] VITALS (7 sets, daily range): BP systolic 97–115; BP diastolic 50–62; PULSE 83–110; RESP 16–18; TEMP 36.1–37; O2SAT 94–97; BMI 27.4
[2021-08-04] MEDS: Dextrose 5 % and 0.45 % NaCl 1,000 ML 80 ML IVCONT (04:57)
[2021-08-04 05:42] LABS: MANUAL DIFF FLAG NO
[2021-08-04 05:50] LABS: Basophils Absolute Auto 0.1 X10*3/uL (0.0-0.2); Basophils Percent Auto 0.3 % (0-2); Eosinophils Absolute Auto 0.1 X10*3/uL (0.0-0.4); Eosinophils Percent Auto 0.8 % (0-4); Hemoglobin 9.3 g/dl (12.0-16.0); Imm Gran Abs Auto 0.91 X10*3/uL (0.00-0.03); Lymphocytes Absolute Auto 2.5 X10*3/uL (1.2-4.9); Lymphocytes Percent Auto 13.5 % (20-40); Mean Corpuscular HGB Conc 32.1 g/dl (31.0-35.0); Mean Corpuscular Volume 87.3 fL (80-98); Mean Platelet Volume 9.1 fL (9.4-12.3); Monocytes Absolute Auto 0.8 X10*3/uL (0.1-1.2); Monocytes Percent Auto 4.3 % (2-11); Neutrophils Percent Auto 76.1 % (45-73); Platelet Count 601 X10*3/uL (160-400); Red Blood Count 3.32 X10*6/uL (4.20-5.50); Red Cell Distribution Width 15.2 % (11.0-16.0); White Blood Count 18.3 X10*3/uL (4.8-10.8)
[2021-08-04 06:34] LABS: Anion Gap 12 (12-20); Blood Urea Nitrogen 10 mg/dL (9-16); Calcium 8.4 mg/dL (8.4-10.2); Carbon Dioxide 26 mmol/L (22-29); Chloride 101 mmol/L (96-108); Creatinine Clr Calc Pharmacy 111.4; Estimated Glomerular Filt Rate > 60; Glucose Fasting 115 mg/dL (60-99); Potassium 3.3 mmol/L (3.3-5.1); Sodium 136 mmol/L (135-145)
--- NOTE | 2021-08-04 07:58 | PM.PNORT ---
Subjective Subjective Date of Service: 08/04/21 Interval history: Patient sleeping in bed comfortably. Pain is managed. No overnight events. No additional complaints. Physical Exam Vital Signs: Vital Signs: Last Vital Signs Temp 98.2 F 08/04/21 04:00 Pulse 86 08/04/21 04:00 Resp 16 08/04/21 04:00 BP 97/52 L 08/04/21 04:00 Pulse Ox 96 08/04/21 04:00 Body Mass Index 27.4 Const: General: cooperative, healthy appearing and no acute distress Resp: Effort & Inspection: normal respiratory effort and able to speak in complete sentences Cardio: Rate: regular rate Peripheral pulses: Peripheral pulses 2+ throughout GI: Palpation (GI): Soft to palpation Skin: Lesions: no lesions Rashes: no rashes Extrem: Other: Right hip remaining bria intact. Continuous copious creamy red discharge actively draining from the incision site. Patient is able to demonstrate dorsiflexion and plantar flexion.? Sensation is intact.? Pedal pulse intact. Procedures Date of Service Date of Service: 08/04/21 Progress Note: A&P Assessment and plan (1) History of hemiarthroplasty of right hip: Status: Acute Assessment and Plan: Right hip dressing- remain clean. dry, and intact, reinforce as needed Consult to ID placed Begin IV abx - Keflex 2g BID First culture taken yesterday was from an unknown source. New culture obtained at bedside this morning by Dr. Zafar and sent from gram stain and culture Fall Risk Details Current Medications: Current Medications Acetaminophen (Acetaminophen 325 Mg Tablet) 650 mg PO Q6H PRN PRN Reason: Pain, Mild (Pain Scale 1-3) Docusate Sodium (Docusate Sodium 100 Mg Capsule) 100 mg PO BID [facility] Last Admin: 08/03/21 21:58 Dose: 100 mg Documented by: Potassium Chloride/Sodium Chloride () 20 meq in 1,000 mls @ 100 mls/hr IVCONT .Q10H [facility] Ondansetron HCl (Ondansetron Hcl 4 Mg/2 Ml Vial) 4 mg IVPUSH Q8H PRN PRN Reason: nausea Oxycodone HCl (Oxycodone Hcl Immed Release 5 Mg Tablet) 5 mg PO Q4H PRN PRN Reason: Pain, Moderate (Pain Scale 4-6 Sodium Chloride (0.9 % Sodium Chloride Flush 3 Ml Syringe) 3 ml IVFLUSH QSHIFT [facility] Last Admin: 08/04/21 02:36 Dose: Not Given Documented by: Time Spent With Patient Time: Total time spent is greater than 50% in coordination of care (as documented) at patient's floor/unit and/or counseling patient: Time with patient: less than 15 minutes Quality Stroke Does the patient have a stroke diagnosis?: No VTE Prior VTE?: No VTE Risk Level:: Surgical - high VTE Device Contraindication: N/A - Device Ordered VTE Drug Contraindication: N/A - Med Ordered
[2021-08-04] MEDS: ceFAZolin Sodium/Dextrose,Iso 2 GM/50 ML PIGGYBACK IV (08:29)
[2021-08-04] MEDS: Docusate Sodium 100 MG CAPSULE PO ×2 (08:30→19:57)
[2021-08-04] MEDS: oxyCODONE HCl Immed Release 5 MG TABLET PO ×2 (09:47→14:13)
[2021-08-04] MEDS: Acetaminophen 325 MG TABLET 650 MG PO (09:47)
--- NOTE | 2021-08-04 12:48 | HO.PM.IMPN ---
Subjective Subjective Date of Service: 08/04/21 Interval History: Patient being followed for right hip infection , patient offers no complaints of fever, no chills no other acute issues overnight, lot of pus drained from the right hip incision by orthopedic surgeon. Review of Systems General no headache,no dizziness, no fever chills. CVS no chest pain, no palpitation. Respiratory no cough, no sob. Gastrointestinal no nausea, no vomiting, no abdominal pain Physical Exam Vital Signs: Vital Signs: Last Vital Signs Temp 97.6 F 08/04/21 11:43 Pulse 83 08/04/21 11:43 Resp 16 08/04/21 11:43 BP 109/54 L 08/04/21 11:43 Pulse Ox 94 08/04/21 11:43 Body Mass Index 27.4 General no acute distress. Neck supple no JVD. CVS regular rate rhythm, Respiratory lungs clear to auscultation, no respiratory distress, no wheeze, no rhonchi. Gastrointestinal abdomen soft, nontender, bowel sounds audible, no guarding , no rigidity. Extremities no edema. Right hip dressing in place Neuro nonfocal , speech clear Psych appropriate affect Objective Data Active Medications Acetaminophen (Acetaminophen 325 Mg Tablet) 650 mg PO Q6H PRN PRN Reason: Pain, Mild (Pain Scale 1-3) Last Admin: 08/04/21 09:47 Dose: 650 mg Documented by: DALY Docusate Sodium (Docusate Sodium 100 Mg Capsule) 100 mg PO BID [facility] Last Admin: 08/04/21 08:30 Dose: 100 mg Documented by: YEFRI Potassium Chloride/Sodium Chloride () 20 meq in 1,000 mls @ 100 mls/hr IVCONT .Q10H [facility] Last Admin: 08/04/21 08:29 Dose: 100 mls/hr Documented by: YEFRI Cefazolin Sodium/Dextrose (Ancef) 2 gm in 50 mls @ 100 mls/hr IV Q12H [facility] Last Infusion: 08/04/21 09:56 Dose: 100 mls/hr Documented by: YEFRI Ondansetron HCl (Ondansetron Hcl 4 Mg/2 Ml Vial) 4 mg IVPUSH Q8H PRN PRN Reason: nausea Oxycodone HCl (Oxycodone Hcl Immed Release 5 Mg Tablet) 5 mg PO Q4H PRN PRN Reason: Pain, Moderate (Pain Scale 4-6 Last Admin: 08/04/21 09:47 Dose: 5 mg Documented by: DALY Sodium Chloride (0.9 % Sodium Chloride Flush 3 Ml Syringe) 3 ml IVFLUSH QSHIFT [facility] Last Admin: 08/04/21 08:30 Dose: Not Given Documented by: YEFRI Non-Admin Reason: IV Running Labs CBC & Chem 7: 08/04/21 05:20 08/04/21 05:20 Labs: Laboratory Results - last 24 hr 08/03/21 08/03/21 08/03/21 16:51 16:51 16:51 MCV 88.3 MCH 27.0 MCHC 30.6 L RDW 15.2 Plt Count 579 H D MPV 9.9 Immature Gran % (Auto) 4.6 H Neut % (Auto) 77.1 H Lymph % (Auto) 13.2 L Daniels % (Auto) 4.2 Eos % (Auto) 0.6 Baso % (Auto) 0.3 Lymph # (Auto) 2.6 Daniels # (Auto) 0.8 Eos # (Auto) 0.1 Baso # (Auto) 0.1 Abs Immat Gran (auto) 0.89 H Absolute Neuts (auto) 14.9 H Absolute Nucleated RBC 0.000 Nucleated RBC % (auto) 0.0 Anion Gap 18 Estim Creat Clear Calc 103.3 Estimated GFR > 60 Random Glucose 88 Fasting Glucose Calcium 8.7 D Blood Type O Positive Antibody Screen NEGATIVE 08/04/21 08/04/21 05:20 05:20 MCV 87.3 MCH 28.0 MCHC 32.1 RDW 15.2 Plt Count 601 H MPV 9.1 L Immature Gran % (Auto) 5.0 H Neut % (Auto) 76.1 H Lymph % (Auto) 13.5 L Daniels % (Auto) 4.3 Eos % (Auto) 0.8 Baso % (Auto) 0.3 Lymph # (Auto) 2.5 Daniels # (Auto) 0.8 Eos # (Auto) 0.1 Baso # (Auto) 0.1 Abs Immat Gran (auto) 0.91 H Absolute Neuts (auto) 14.0 H Absolute Nucleated RBC 0.000 Nucleated RBC % (auto) 0.0 Anion Gap 12 Estim Creat Clear Calc 111.4 Estimated GFR > 60 Random Glucose Fasting Glucose 115 H Calcium 8.4 Blood Type Antibody Screen Microbiology Microbiology Results: Microbiology 08/03/21 17:46 Gram Stain - Final Hip Right Routine Culture - Preliminary Staphylococcus aureus Assessment and Plan (1) History of hemiarthroplasty of right hip: Status: Acute (2) Pacemaker: Status: Acute (3) Unspecified open wound, right hip, initial encounter: Status: Acute Assessment and Plan: 56 yo F who sustained a mechanical fall in May 2021 and underwent a successful operative repair, and since then has had multiple dislocations and recently admitted from 07/24 to 07/29 for the same thing, she was underwent hip revision on 07/27 and seen in the office today and concern of hip instability and therefore admitted #Right hip wound with purulent drainage status post revision of right hip on 07/27 Patient denies fever, no pain, WBC slowly trending down, Cultures from right hip growing Gram-positive cocci, repeat cultures sent today by orthopedic surgeon Case discussed with Dr. Babcock she recommend to start patient on IV vancomycin will DC IV Kefzol Follow blood cultures x2, check CBC, BMP while on vanco, follow Vanco trough resume diabetic diet, further management as per Orthopedic surgery # Hypothyroidism continue synthroid # Dementia without behavioral disturbances continue home medication 4. Heart-block s/p PPM no active issues, monitor, DVT prophylaxis continue compression stocking. Quality Stroke Does the patient have a stroke diagnosis?: No VTE Prior VTE?: No VTE Risk Level:: Surgical - high VTE Device Contraindication: N/A - Device Ordered VTE Drug Contraindication: N/A - Med Ordered
--- NOTE | 2021-08-04 13:10 | MHC.CM.PN ---
Addendum entered by Sanjana William RN 08/04/21 13:22: PCP IS JUANITA GALARZA AND HCP IS LUCAS MANNING [phone] AND ON FILE FROM PREVIOUS ADMISSION. Original Note: IMM 08/04/21, EMR REVIEWED, PT DIRECT ADMIT FROM ORTHO APPT D/T WORSENING INFECTION, PT IS CURRENTLY AT [facility] FOR STR, CM REQUESTED COVID SWAB FOR PT WHO WAS NOT TESTED PRIOR TO COMING TO FLOOR, HOSPITALIST HAS ORDERED COVID SWAB AND SWAB HAS BEEN OBTAINED BY [facility] AND DELIVERED TO LAB AFTER PT'S REPORTED HE FOUND OUT THERE WAS A COVID OUTBREAK AMONGST THE STAFF THERE AND IS HOPING PT CAN STAY THROUGH W/E, PT DOES HAVE ORTHO PROCEDURE SCHEDULED ON Monday08/06/21 AND IT IS LIKELY SHE WILL BE HERE THROUGH W/E, PT'S DOES NOT HAVE ANY C/O ABOUT CARE PT HAS BEEN RECEIVING AT SNF AND REFERRAL TO RETURN HAS BEEN PLACED. D/C PLAN: RETURN TO [facility] FOR STR, PT WILL NEED NEW AUTH, [facility] FOR BLS TRANSPORT
[2021-08-04 13:22] LABS: COVID-19 Test Negative (Negative)
--- NOTE | 2021-08-04 13:41 | PHA.PROG ---
Admission Date/Time: August 03, 2021 14:46 Indication: BONE AND JOINT INFECTION Weight in k.1 kg Adjusted body weight in Kg: [place] body weight in Kg: Obesity Dosing Indication % IBW: Serum Creatinine - Last 168 Hours 08/03/21 08/04/21 16:51 05:20 Creatinine 0.55 0.51 Estimated CrCl and GFR - Last 168 Hours 08/03/21 08/04/21 16:51 05:20 Estim Creat Clear Calc 103.3 111.4 Estimated GFR > 60 > 60 Vancomycin Loading Dose: Current Vancomycin Dosing Regimen: 1250 MG Q12H Vancomycin Monitoring using AUC goal of 400 - 600 range with trough as surrogate marker: PREDICTED AUC OF 509, PREDICTED TROUGH 14.5 MG/L Date and Time for next Vancomycin Level to be drawn: 08/06/21 @0100 Pharmacist Comments on Vancomycin Plan: Vancomycin dosing will take advantage of [employer] as a clinical decision support tool that uses Bayesian modeling to calculate individual patient's pharmacokinetic parameters and forecast the patient's drug concentration time course with the target goal AUC 24 range of 400 - 600 mg/L/hr.
[2021-08-04] MEDS: vancomycin HCL 1,250 MG in 0.9 % Sodium Chloride 250 ML 166.67 MG IV (14:14)
--- NOTE | 2021-08-04 15:30 | MHC.CLN ---
NUTRITION CONSULT STAGE II RIGHT BUTTOCK AND STAGE III COCCYX WOUNDS PRESENT. INTAKE VERY GOOD AND REPORTS THAT PATIENT CONSISTENTLY EATS WELL. WEIGHT ESSENTIALLY STABLE X 6 MONTHS. WILL ADD JALYN BID (160 KCAL, 5 G PROTEIN) TO PROMOTE WOUND HEALING. ENCOURAGED DRINKING (LACTAID) MILK AT EACH MEAL TO INCREASE PROTEIN INTAKE.
--- NOTE | 2021-08-04 16:42 | W.PM.IDCN ---
History of Present Illness Data of Consult Service Date: 08/04/21 Requesting physician: Earnest Zafar Primary Care Provider: Unknown Physician HPI Reason for consult: staph aureus right hip area She presents with weakness, right hip area fullness/discomfort Fluid was expressed from right hip area, staph aureus with multiple polys She had 06/10 THR right arthroplasty She had dislocation and failed closed reduction on 07/07. 07/22 OR and reduced 07/27 repeat Now some fluid expressed ,staph aureus Review of Systems Review of Systems: Yes Unobtainable due to mental status [facility] Past Medical History Medical History Balance disorder Closed dislocation of right hip Closed hip fracture Dementia Dementia Dislocation, hip closed Displaced fracture of right femoral neck Fever Hip dislocation, right History of pacemaker Hypothyroidism Hypothyroidism Increased urinary frequency Lactose intolerance Left leg weakness Leukocytosis (leucocytosis) Memory loss Normally functioning cardiac pacemaker present Pre-op evaluation Preoperative cardiovascular examination PTSD (post-traumatic stress disorder) Sinus arrest Sinus pause Symptomatic bradycardia Syncope Tobacco dependence Urinary incontinence Family History Family History Mother Unknown family medical history Father Unknown family medical history Family history: reviewed and not pertinent Surgical History Surgical History Hx of total hip arthroplasty No pertinent past surgical history Status post hip hemiarthroplasty Social History Social History Household Members: Spouse Housing: Apartment Housing [facility] Do you presently have visiting nurse or other home services: No Unable to assess alcohol history related to: Unknown Alcohol intake: current Alcohol intake frequency: does not drink Patient Tobacco Use Status: Current someday Tobacco user Tobacco use type: Cigarette Cigarette Packs Per Day: 0.25 Cigarettes Per Day: 5.0 Years Smoked: since teen years per pt e-Cigarette/Vaping Use: Never Used Second Hand Smoke Exposure: Yes Substance Use Type: Marijuana Advance Directives Date on File: 06/16/21 service: No Current occupational status: disabled Current occupation: rt handed Meds Allergies Allergy/AdvReac Type Severity Reaction Status Date / Time Drayden nut Allergy Unknown Verified 08/03/21 13:11 lactose Allergy Diarrhea Verified 08/03/21 13:11 Active Medications: Current Medications Acetaminophen (Acetaminophen 325 Mg Tablet) 650 mg PO Q6H PRN PRN Reason: Pain, Mild (Pain Scale 1-3) Last Admin: 08/04/21 09:47 Dose: 650 mg Documented by: Docusate Sodium (Docusate Sodium 100 Mg Capsule) 100 mg PO BID [facility] Last Admin: 08/04/21 08:30 Dose: 100 mg Documented by: Potassium Chloride/Sodium Chloride () 20 meq in 1,000 mls @ 100 mls/hr IVCONT .Q10H [facility] Last Admin: 08/04/21 16:33 Dose: Not Given Documented by: Vancomycin HCl 1,250 mg/ (Sodium Chloride) 250 mls @ 166.667 mls/hr IV Q12H [facility] Last Infusion: 08/04/21 15:53 Dose: Infused Documented by: Ondansetron HCl (Ondansetron Hcl 4 Mg/2 Ml Vial) 4 mg IVPUSH Q8H PRN PRN Reason: nausea Oxycodone HCl (Oxycodone Hcl Immed Release 5 Mg Tablet) 5 mg PO Q4H PRN PRN Reason: Pain, Moderate (Pain Scale 4-6 Last Admin: 08/04/21 14:13 Dose: 5 mg Documented by: Pharmacy Consult (Consult Rx Vancomycin Dosing) 1 each MISCELLANE DAILY PRN PRN Reason: Consult order Sodium Chloride (0.9 % Sodium Chloride Flush 3 Ml Syringe) 3 ml IVFLUSH QSHIFT [facility] Last Admin: 08/04/21 16:31 Dose: Not Given Documented by: Home Medications Medication Instructions Recorded Confirmed Last Taken Type nicotine 14 mg/24 hr daily 1 patch TOPICAL DAILY 07/23/21 07/23/21 07/21/21 History transdermal patch Physical Exam Vital Signs: Vital Signs: Last Vital Signs Temp 96.9 F 08/04/21 15:28 Pulse 84 08/04/21 15:28 Resp 18 08/04/21 15:28 BP 113/59 L 08/04/21 15:28 Pulse Ox 97 08/04/21 15:28 Body Mass Index 27.4 Const: General: cooperative HENMT: Head: Yes normal to inspection Eyes: General: appearance normal, both eyes and all related structures Resp: Effort & Inspection: normal respiratory effort Cardio: Rate: regular rate Rhythm: regular rhythm GI: Palpation (GI): Soft to palpation and nontender Extrem: Other: hip bria in yellow drainage Results Labs CBC & Chem 7: 08/09/21 07:28 08/09/21 07:28 Labs: Short CBC 08/03/21 08/04/21 Range/Units 16:51 05:20 WBC 19.3 H 18.3 H (4.8-10.8) X10*3/uL Hgb 10.6 L 9.3 L (12.0-16.0) g/dl Hct 34.6 L 29.0 L (37-47) % Plt Count 579 H D 601 H (160-400) X10*3/uL BMP 08/03/21 08/04/21 16:51 05:20 Sodium 140 136 Potassium 3.7 3.3 Chloride 101 101 Carbon Dioxide 25 26 BUN 11 D 10 Creatinine 0.55 0.51 Calcium 8.7 D 8.4 Microbiology Microbiology Results: Microbiology 08/04/21 07:43 Hip Right Gram Stain - Final 08/03/21 17:46 Hip Right Gram Stain - Final 08/03/21 17:46 Hip Right Routine Culture - Preliminary Staphylococcus aureus Assessment and Plan (1) Unspecified open wound, right hip, initial encounter: Status: Acute staph aureus wound Would give 6 weeks IV Vancomycin if MRSA Consider other drugs if MSSA Would remove hardware if able per Orthopedics May consider add Rifampin (2) History of hemiarthroplasty of right hip: Status: Acute
[2021-08-04] MEDS: 0.9 % Sodium Chloride Flush 3 ML SYRINGE IVFLUSH (23:55)
[2021-08-05] MEDS: vancomycin HCL 1,250 MG in 0.9 % Sodium Chloride 250 ML 166.67 MG IV ×2 (02:50→14:10)
[2021-08-05 04:00] VITALS: RESP 16
[2021-08-05 06:05] LABS: Basophils Percent Auto 0.2 % (0-2); Eosinophils Absolute Auto 0.2 X10*3/uL (0.0-0.4); Eosinophils Percent Auto 1.2 % (0-4); Hematocrit 27.9 % (37-47); Hemoglobin 8.6 g/dl (12.0-16.0); Imm Gran Abs Auto 0.66 X10*3/uL (0.00-0.03); Lymphocytes Absolute Auto 2.4 X10*3/uL (1.2-4.9); Lymphocytes Percent Auto 14.7 % (20-40); MANUAL DIFF FLAG NO; Mean Corpuscular HGB Conc 30.8 g/dl (31.0-35.0); Mean Corpuscular Hemoglobin 27.1 pg (27.0-33.0); Mean Platelet Volume 9.2 fL (9.4-12.3); Monocytes Absolute Auto 0.7 X10*3/uL (0.1-1.2); Monocytes Percent Auto 4.4 % (2-11); Neutrophils Absolute Auto 12.5 X10*3/uL (2.0-8.3); Neutrophils Percent Auto 75.5 % (45-73); Platelet Count 579 X10*3/uL (160-400); Red Blood Count 3.17 X10*6/uL (4.20-5.50); Red Cell Distribution Width 15.2 % (11.0-16.0); White Blood Count 16.5 X10*3/uL (4.8-10.8)
[2021-08-05 07:01] LABS: Anion Gap 12 (12-20); Blood Urea Nitrogen 7 mg/dL (9-16); Calcium 7.9 mg/dL (8.4-10.2); Carbon Dioxide 24 mmol/L (22-29); Chloride 105 mmol/L (96-108); Creatinine Clr Calc Pharmacy 111.4; Estimated Glomerular Filt Rate > 60; Glucose Fasting 85 mg/dL (60-99); Potassium 3.8 mmol/L (3.3-5.1); Sodium 137 mmol/L (135-145)
[2021-08-05 08:00] VITALS: BP 98/55; PULSE 88; RESP 14; TEMP 36.3; O2SAT 92
[2021-08-05] MEDS: oxyCODONE HCl Immed Release 5 MG TABLET PO (10:29)
[2021-08-05 11:42] VITALS: BP 100/56; PULSE 79; RESP 16; TEMP 36.3; O2SAT 95
--- NOTE | 2021-08-05 13:21 | P.PNIM_ITS ---
Subjective Subjective Date of Service: 08/05/21 Interval History: Patient being followed for right hip wound, patient awake alert complaining of left leg pain, denies right hip pain,no acute overnight issues. Review of Systems General no headache,no dizziness, no fever chills.? CVS no chest pain, no palpitation.? Respiratory no cough, no sob.? Gastrointestinal no nausea, no vomiting, no abdominal pain Patient with baseline dementia, other than left leg pain says no to all questions. Review of Systems: Yes all other systems are reviewed and are negative Physical Exam Vital Signs: Vital Signs: Last Vital Signs Temp 97.4 F 08/05/21 11:42 Pulse 79 08/05/21 11:42 Resp 16 08/05/21 11:42 BP 100/56 L 08/05/21 11:42 Pulse Ox 95 08/05/21 11:42 Body Mass Index 27.4 General? no acute distress.? Neck supple no JVD. CVS? regular rate rhythm, Respiratory lungs clear to auscultation, no respiratory distress, no wheeze, no rhonchi. Gastrointestinal abdomen soft, nontender, bowel sounds audible, no guarding , no rigidity. Extremities no edema. Left knee and leg normal examination no redness or swelling noted. Right hip dressing in place Neuro nonfocal , speech clear Skin Stage 2/3 coccyx/buttock ulcer Psych appropriate affect Objective Data Active Medications Acetaminophen (Acetaminophen 325 Mg Tablet) 650 mg PO Q6H PRN PRN Reason: Pain, Mild (Pain Scale 1-3) Last Admin: 08/04/21 09:47 Dose: 650 mg Documented by: DALY Docusate Sodium (Docusate Sodium 100 Mg Capsule) 100 mg PO BID [facility] Last Admin: 08/05/21 10:29 Dose: Not Given Documented by: YEFRI Non-Admin Reason: loose stool Potassium Chloride/Sodium Chloride () 20 meq in 1,000 mls @ 100 mls/hr IVCONT .Q10H [facility] Last Infusion: 08/05/21 09:42 Dose: 100 mls/hr Documented by: YEFRI Vancomycin HCl 1,250 mg/ (Sodium Chloride) 250 mls @ 166.667 mls/hr IV Q12H [facility] Last Infusion: 08/05/21 06:34 Dose: 166.67 mls/hr Documented by: RONDA Ondansetron HCl (Ondansetron Hcl 4 Mg/2 Ml Vial) 4 mg IVPUSH Q8H PRN PRN Reason: nausea Oxycodone HCl (Oxycodone Hcl Immed Release 5 Mg Tablet) 5 mg PO Q4H PRN PRN Reason: Pain, Moderate (Pain Scale 4-6 Last Admin: 08/05/21 10:29 Dose: 5 mg Documented by: YEFRI Pharmacy Consult (Consult Rx Vancomycin Dosing) 1 each MISCELLANE DAILY PRN PRN Reason: Consult order Sodium Chloride (0.9 % Sodium Chloride Flush 3 Ml Syringe) 3 ml IVFLUSH QSHIFT [facility] Last Admin: 08/05/21 09:42 Dose: Not Given Documented by: YEFRI Non-Admin Reason: IV Running Labs CBC & Chem 7: 08/05/21 05:25 08/05/21 05:25 Labs: Laboratory Results - last 24 hr 08/04/21 08/05/21 08/05/21 12:50 05:25 05:25 MCV 88.0 MCH 27.1 MCHC 30.8 L RDW 15.2 Plt Count 579 H MPV 9.2 L Immature Gran % (Auto) 4.0 H Neut % (Auto) 75.5 H Lymph % (Auto) 14.7 L [place] % (Auto) 4.4 Eos % (Auto) 1.2 Baso % (Auto) 0.2 Lymph # (Auto) 2.4 [place] # (Auto) 0.7 Eos # (Auto) 0.2 Baso # (Auto) 0.0 Abs Immat Gran (auto) 0.66 H Absolute Neuts (auto) 12.5 H Absolute Nucleated RBC 0.000 Nucleated RBC % (auto) 0.0 Anion Gap 12 Estim Creat Clear Calc 111.4 Estimated GFR > 60 Random Glucose TNP Fasting Glucose 85 Calcium 7.9 L COVID-19 (BOB) Negative COVID-19 Clin Com See Note Microbiology Microbiology Results: Microbiology 08/04/21 07:43 Gram Stain - Final Hip Right Routine Culture - Preliminary Staphylococcus aureus 08/03/21 17:46 Gram Stain - Final Hip Right Routine Culture - Final Methicillin Res Staph Aureus 08/03/21 19:22 Blood Culture - Preliminary Blood - Venous No growth after 24 hours. 08/03/21 19:22 Blood Culture - Preliminary Blood - Venous No growth after 24 hours. Assessment and Plan (1) Unspecified open wound, right hip, initial encounter: Status: Acute (2) History of hemiarthroplasty of right hip: Status: Acute (3) Pacemaker: Status: Acute Assessment and Plan: 56 yo F who sustained a mechanical fall in May 2021 and underwent a successful operative repair, and since then has had multiple dislocations and recently admitted from 07/24 to 07/29 for the same thing, she underwent hip revision on 07/27 and seen in the ortho office and due to concern of hip instability sent to hospital for admission #Right hip wound with purulent drainage status post revision of right hip on 07/27 Wound culture growing Gram-positive cocci, patient denies fever, no pain, no other acute issues overnight ? WBC slowly trending down, Cultures from right hip sent by Ortho growing Gram- positive cocci ? Case discussed with Dr. Babcock she recommend IV vancomycin day 2 ? Follow blood cultures x2, check CBC, BMP while on vanco, follow Vanco trough resume diabetic diet Case discussed with Dr. Zafar will have surgery tomorrow, will keep her NPO after midnight Will DC IV fluid tolerating by mouth well Informed care of plan to at bedside. # Hypothyroidism continue synthroid # Dementia without behavioral disturbances continue home medication 4. Heart-block s/p PPM no active issues, monitor, 5. Decubital ulcer coccyx stage 2-3 continue frequent position change, high- protein diet and air loss bed DVT prophylaxis continue compression stocking. Skin/wound assessment completed today. On admission patient has Stage 2 coccyx/buttocks-Triad applied to wound bed covered with small gauze and foam dressing. Right ankle has a stage 2 pressure injury- Triad applied cover with small gauze/foam dressing. Patient has wound vac to right hip incision. No other skin issues noted at this time. Quality Stroke Does the patient have a stroke diagnosis?: No VTE Prior VTE?: No VTE Risk Level:: Surgical - high VTE Device Contraindication: N/A - Device Ordered VTE Drug Contraindication: N/A - Med Ordered
--- NOTE | 2021-08-05 14:56 | HO.WOUNDCONS ---
History of Present Illness Data of Consult Service Date: 08/05/21 Requesting physician: Earnest Zafar Primary Care Provider: Unknown Physician HPI Reason for consult: sacral wounds The patient is a 56-year-old female who has had complications with right hip surgery. She has had several revision and washout and was discharged on 07/29 with a known stage 2 sacral/coccyx pressure wound. She she was readmitted on 08/03 and on her admission nursing evaluation assess this wound now at this stage III with fatty tissue noted. This was confirmed by photos. Today wound care consult by myself came in to evaluate the patient's sacral wound and it is indeed a stage III wound. It seems however that in between July 29 and August 03 at her rehab facility her wound has progressed. Today she is continuing to receive care with IV antibiotics for her hip infection and a washout in the operating room is planned for tomorrow. Dr. Zafar is taking care of this from Orthopedics standpoint and Infectious Disease is are involved. Review of Systems Constitutional: Constitutional: Reports no additional constitutional complaints Cardiovascular: Cardiovascular: Reports no additional cardiovascular complaints Respiratory: Respiratory: Reports no additional respiratory complaints Gastrointestinal: Gastrointestinal: Reports no additional gastrointestinal complaints Genitourinary: Genitourinary: Reports no additional female genitourinary complaints Musculoskeletal: Comments: Right hip pain and other joint aches especially in the lower extremity Psychiatric: Psychiatric: Reports no additional psychiatric complaints PMFSH Medical History Balance disorder Closed dislocation of right hip Closed hip fracture Dementia Dementia Dislocation, hip closed Displaced fracture of right femoral neck Fever Hip dislocation, right History of pacemaker Hypothyroidism Hypothyroidism Increased urinary frequency Lactose intolerance Left leg weakness Leukocytosis (leucocytosis) Memory loss Normally functioning cardiac pacemaker present Pre-op evaluation Preoperative cardiovascular examination PTSD (post-traumatic stress disorder) Sinus arrest Sinus pause Symptomatic bradycardia Syncope Tobacco dependence Urinary incontinence Family History Mother Unknown family medical history Father Unknown family medical history Pertinent family history: unknown Surgical History Hx of total hip arthroplasty No pertinent past surgical history Status post hip hemiarthroplasty Social History Household Members: Spouse Housing: Apartment Housing Other:: From [facility] Do you presently have visiting nurse or other home services: No Unable to assess alcohol history related to: Unknown Alcohol intake: current Alcohol intake frequency: does not drink Patient Tobacco Use Status: Current someday Tobacco user Tobacco use type: Cigarette Cigarette Packs Per Day: 0.25 Cigarettes Per Day: 5.0 Years Smoked: since teen years per pt e-Cigarette/Vaping Use: Never Used Second Hand Smoke Exposure: Yes Use of substances other than those prescribed or required for medical reasons: No Substance Use Type: Marijuana Currently Displaying Signs/Symptoms of Drug Intoxication Withdrawal: No Have you been hit, kicked, punched, or otherwise hurt by someone within the past year? If so, by whom?: No Do you feel safe in your current relationship?: Yes Is there a partner from a previous relationship who is making you feel unsafe now?: No Are you made to feel afraid or neglected: No Advance Directives: Yes Advance Directives on File: Yes Advance Directives Date on File: 06/16/21 Do you have thoughts of harming others: None Do you have a plan to hurt others: No Plan Recently lost weight without trying: Unsure Nutrition Risks: No Nutritional Risk Patient : No : No Poor oral hygiene: No service: No Current occupational status: disabled Current occupation: rt handed Meds Allergies Allergy/AdvReac Type Severity Reaction Status Date / Time [place] nut Allergy Unknown Verified 08/03/21 13:11 lactose Allergy Diarrhea Verified 08/03/21 13:11 Active Medications: Current Medications Acetaminophen (Acetaminophen 325 Mg Tablet) 650 mg PO Q6H PRN PRN Reason: Pain, Mild (Pain Scale 1-3) Last Admin: 08/04/21 09:47 Dose: 650 mg Documented by: Docusate Sodium (Docusate Sodium 100 Mg Capsule) 100 mg PO BID [facility] Last Admin: 08/05/21 10:29 Dose: Not Given Documented by: Vancomycin HCl 1,250 mg/ (Sodium Chloride) 250 mls @ 166.667 mls/hr IV Q12H [facility] Last Admin: 08/05/21 14:10 Dose: 166.67 mls/hr Documented by: Ondansetron HCl (Ondansetron Hcl 4 Mg/2 Ml Vial) 4 mg IVPUSH Q8H PRN PRN Reason: nausea Oxycodone HCl (Oxycodone Hcl Immed Release 5 Mg Tablet) 5 mg PO Q4H PRN PRN Reason: Pain, Moderate (Pain Scale 4-6 Last Admin: 08/05/21 10:29 Dose: 5 mg Documented by: Pharmacy Consult (Consult Rx Vancomycin Dosing) 1 each MISCELLANE DAILY PRN PRN Reason: Consult order Sodium Chloride (0.9 % Sodium Chloride Flush 3 Ml Syringe) 3 ml IVFLUSH QSHIFT [facility] Last Admin: 08/05/21 09:42 Dose: Not Given Documented by: Home Medications Medication Instructions Recorded Confirmed Last Taken Type nicotine 14 mg/24 hr daily 1 patch TOPICAL DAILY 07/23/21 07/23/21 07/21/21 History transdermal patch Physical Exam Vital Signs and Narrative: Vital Signs: Last Vital Signs Temp 97.4 F 08/05/21 11:42 Pulse 79 08/05/21 11:42 Resp 16 08/05/21 11:42 BP 100/56 L 08/05/21 11:42 Pulse Ox 95 08/05/21 11:42 Body Mass Index 27.4 Const: General: cooperative, healthy appearing and comfortable Nutritional Appearance: well nourished Skin: Other: The patient is turned and the buttock and sacral area examined. the triad cream is wiped off to allowed visualization of the skin. The lower sacral area upper coccyx shows an area 3 by 2-1/2 cm of skin breakdown in some areas albeit small the skin breakdown goes full-thickness into subcutaneous fatty tissue. There is some mild erythema and the surrounding open area and other spots along the midline area around this open breakdown that are consistent with more stage I and 2 skin changes. The buttock cheek has a small tear which is mainly stage II Results Labs CBC and Chem 7: 08/05/21 05:25 08/05/21 05:25 Labs: Laboratory Results - last 24 hr 08/05/21 08/05/21 05:25 05:25 MCV 88.0 MCH 27.1 MCHC 30.8 L RDW 15.2 Plt Count 579 H MPV 9.2 L Immature Gran % (Auto) 4.0 H Neut % (Auto) 75.5 H Lymph % (Auto) 14.7 L [place] % (Auto) 4.4 Eos % (Auto) 1.2 Baso % (Auto) 0.2 Lymph # (Auto) 2.4 [place] # (Auto) 0.7 Eos # (Auto) 0.2 Baso # (Auto) 0.0 Abs Immat Gran (auto) 0.66 H Absolute Neuts (auto) 12.5 H Absolute Nucleated RBC 0.000 Nucleated RBC % (auto) 0.0 Anion Gap 12 Estim Creat Clear Calc 111.4 Estimated GFR > 60 Random Glucose TNP Fasting Glucose 85 Calcium 7.9 L Assessment and Plan (1) Pressure injury of sacral region, stage 3: Status: Acute Patient is a 56-year-old female who has right hip infection and is set for another washout procedure tomorrow followed by orthopedic surgery in treated with IV antibiotics. She has been immobilized with limited motion over the last several weeks that she has had a complicated course with this right hip. As result she has developed a stage II pressure injury at the sacral area which had advanced in rehab to stage III. On admission 2 days ago it looked like a stage III and it currently is still at a stage III. Plan is to take care of the underlying issue which is her orthopedic infection with washout by the surgical team as well as IV antibiotics. In the meantime dressings with silver alginate and zinc oxide as well as offloading is imperative. Because the patient cannot be rotated on the right hip and trying to minimize her supine position as much as possible while still trying to keep her right leg slightly abducto it for her orthopedic injury consider special air mattress is as well as pillows and abducting sponges to keep her in the correct orientation fitted right hip. This was all discussed with her nursing team and medical team and the patient and her team understand agree with above plan
[2021-08-05 16:00] VITALS: BP 96/57; PULSE 94; RESP 18; TEMP 36.8; O2SAT 95
[2021-08-05] MEDS: 0.9 % Sodium Chloride Flush 3 ML SYRINGE IVFLUSH (16:59)
[2021-08-05 19:52] VITALS: BP 95/55; PULSE 95; RESP 18; TEMP 37.3; O2SAT 96
[2021-08-05 23:52] VITALS: BP 111/54; PULSE 97; RESP 14; TEMP 36.8; O2SAT 94
[2021-08-06] VITALS (10 sets, daily range): BP systolic 93–119; BP diastolic 43–68; PULSE 80–102; RESP 14–17; TEMP 36.1–37.2; O2SAT 94–100
[2021-08-06] MEDS: 0.9 % Sodium Chloride Flush 3 ML SYRINGE IVFLUSH ×2 (00:14→22:37)
[2021-08-06 01:47] LABS: Vancomycin Trough 12.3 mcg/mL (10.0-20.0)
[2021-08-06] MEDS: vancomycin HCL 1,250 MG in 0.9 % Sodium Chloride 250 ML 166.67 MG IV ×2 (02:40→15:39)
[2021-08-06 06:06] LABS: MANUAL DIFF FLAG NO
[2021-08-06 06:25] LABS: Basophils Percent Auto 0.3 % (0-2); Eosinophils Absolute Auto 0.2 X10*3/uL (0.0-0.4); Eosinophils Percent Auto 1.4 % (0-4); Hematocrit 28.1 % (37-47); Hemoglobin 8.7 g/dl (12.0-16.0); Imm Gran Abs Auto 0.69 X10*3/uL (0.00-0.03); Imm Gran Pct Auto 4.5 % (0.0-0.4); Lymphocytes Absolute Auto 2.3 X10*3/uL (1.2-4.9); Lymphocytes Percent Auto 15.2 % (20-40); Mean Corpuscular Hemoglobin 27.3 pg (27.0-33.0); Mean Corpuscular Volume 88.1 fL (80-98); Monocytes Absolute Auto 0.6 X10*3/uL (0.1-1.2); Monocytes Percent Auto 3.8 % (2-11); Neutrophils Absolute Auto 11.5 X10*3/uL (2.0-8.3); Neutrophils Percent Auto 74.8 % (45-73); Platelet Count 582 X10*3/uL (160-400); Red Blood Count 3.19 X10*6/uL (4.20-5.50); Red Cell Distribution Width 15.1 % (11.0-16.0); White Blood Count 15.4 X10*3/uL (4.8-10.8)
[2021-08-06 06:43] LABS: Anion Gap 11 (12-20); Blood Urea Nitrogen 6 mg/dL (9-16); Calcium 8.2 mg/dL (8.4-10.2); Carbon Dioxide 26 mmol/L (22-29); Chloride 105 mmol/L (96-108); Creatinine Clr Calc Pharmacy 113.6; Estimated Glomerular Filt Rate > 60; Glucose Fasting 96 mg/dL (60-99); Potassium 3.7 mmol/L (3.3-5.1); Sodium 138 mmol/L (135-145)
[2021-08-06] MEDS: oxyCODONE HCl Immed Release 5 MG TABLET PO (09:27)
--- NOTE | 2021-08-06 12:14 | P.CONAN_ITS ---
HPI - Anesthesia Eval Consult details Narrative: Septic Hip rigght side PMFSH Active Problems Active Problems: All Active Problems (Updated 08/05/21 @ 17:02 by Nivia Perez MD) Pressure injury of sacral region, stage 3 (Acute) Unspecified open wound, right hip, initial encounter (Acute) History of hemiarthroplasty of right hip (Acute) Abnormal urine odor (Acute) Abnormal EKG (Acute) Pacemaker (Acute) Visit for wound check (Acute) Sinus pause (Acute) Past Medical History Medical History Balance disorder Closed dislocation of right hip Closed hip fracture Dementia Dementia Dislocation, hip closed Displaced fracture of right femoral neck Fever Hip dislocation, right History of pacemaker Hypothyroidism Hypothyroidism Increased urinary frequency Lactose intolerance Left leg weakness Leukocytosis (leucocytosis) Memory loss Normally functioning cardiac pacemaker present Pre-op evaluation Preoperative cardiovascular examination PTSD (post-traumatic stress disorder) Sinus arrest Sinus pause Symptomatic bradycardia Syncope Tobacco dependence Urinary incontinence Family History Family History Mother Unknown family medical history Father Unknown family medical history Family history of problems with anesthesia: No Surgical History Surgical History Hx of total hip arthroplasty No pertinent past surgical history Status post hip hemiarthroplasty History of Problems with Anesthesia: No Social History Social History Household Members: Spouse Housing: Apartment Housing Other:: [facility] Do you presently have visiting nurse or other home services: No Unable to assess alcohol history related to: Unknown Alcohol intake: current Alcohol intake frequency: does not drink Patient Tobacco Use Status: Current someday Tobacco user Tobacco use type: Cigarette Cigarette Packs Per Day: 0.25 Cigarettes Per Day: 5.0 Years Smoked: since teen years per pt e-Cigarette/Vaping Use: Never Used Second Hand Smoke Exposure: Yes Use of substances other than those prescribed or required for medical reasons: No Substance Use Type: Marijuana Currently Displaying Signs/Symptoms of Drug Intoxication Withdrawal: No Have you been hit, kicked, punched, or otherwise hurt by someone within the past year? If so, by whom?: No Do you feel safe in your current relationship?: Yes Is there a partner from a previous relationship who is making you feel unsafe now?: No Are you made to feel afraid or neglected: No Advance Directives: Yes Advance Directives on File: Yes Advance Directives Date on File: 06/16/21 Do you have thoughts of harming others: None Do you have a plan to hurt others: No Plan Recently lost weight without trying: Unsure Nutrition Risks: No Nutritional Risk Patient : No : No Poor oral hygiene: No service: No Current occupational status: disabled Current occupation: rt handed Meds Allergies Allergy/AdvReac Type Severity Reaction Status Date / Time [place] nut Allergy Unknown Verified 08/03/21 13:11 lactose Allergy Diarrhea Verified 08/03/21 13:11 Active Medications: Current Medications Acetaminophen (Acetaminophen 325 Mg Tablet) 650 mg PO Q6H PRN PRN Reason: Pain, Mild (Pain Scale 1-3) Last Admin: 08/04/21 09:47 Dose: 650 mg Documented by: Docusate Sodium (Docusate Sodium 100 Mg Capsule) 100 mg PO BID [facility] Last Admin: 08/06/21 09:28 Dose: Not Given Documented by: Vancomycin HCl 1,250 mg/ (Sodium Chloride) 250 mls @ 166.667 mls/hr IV Q12H [facility] Last Infusion: 08/06/21 04:33 Dose: Infused Documented by: Ondansetron HCl (Ondansetron Hcl 4 Mg/2 Ml Vial) 4 mg IVPUSH Q8H PRN PRN Reason: nausea Oxycodone HCl (Oxycodone Hcl Immed Release 5 Mg Tablet) 5 mg PO Q4H PRN PRN Reason: Pain, Moderate (Pain Scale 4-6 Last Admin: 08/06/21 09:27 Dose: 5 mg Documented by: Pharmacy Consult (Consult Rx Vancomycin Dosing) 1 each MISCELLANE DAILY PRN PRN Reason: Consult order Sodium Chloride (0.9 % Sodium Chloride Flush 3 Ml Syringe) 3 ml IVFLUSH QSHIFT [facility] Last Admin: 08/06/21 09:28 Dose: Not Given Documented by: Sodium Chloride (0.9 % Sodium Chloride Flush 10 Ml Syringe) 5 ml IVFLUSH TID [facility] Zinc Oxide (Zinc Oxide 20% Ointment 28.35 Gm Tube) 1 appl TOPICAL DAILY PRN; Protocol PRN Reason: Rash Home Medications Medication Instructions Recorded Confirmed Last Taken Type nicotine 14 mg/24 hr daily 1 patch TOPICAL DAILY 07/23/21 07/23/21 07/21/21 History transdermal patch Exam Exam Date and Time: August 06, [id number] Height,Weight and Vital Signs: Height 5 ft 2 in Weight 68.1 kg Last Vital Signs Temp 97.9 F 08/06/21 08:00 Pulse 85 08/06/21 08:00 Resp 16 08/06/21 08:00 BP 119/68 08/06/21 08:00 Pulse Ox 96 08/06/21 08:00 Pertinent Lab Results Pertinent Lab Results: Laboratory Tests 08/03/21 08/03/21 08/03/21 16:51 16:51 16:51 WBC 19.3 H RBC 3.92 L Hgb 10.6 L Hct 34.6 L MCV 88.3 MCH 27.0 MCHC 30.6 L RDW 15.2 Plt Count 579 H D MPV 9.9 Immature Gran % (Auto) 4.6 H Neut % (Auto) 77.1 H Lymph % (Auto) 13.2 L [place] % (Auto) 4.2 Eos % (Auto) 0.6 Baso % (Auto) 0.3 Lymph # (Auto) 2.6 [place] # (Auto) 0.8 Eos # (Auto) 0.1 Baso # (Auto) 0.1 Abs Immat Gran (auto) 0.89 H Absolute Neuts (auto) 14.9 H Absolute Nucleated RBC 0.000 Nucleated RBC % (auto) 0.0 Sodium 140 Potassium 3.7 Chloride 101 Carbon Dioxide 25 Anion Gap 18 BUN 11 D Creatinine 0.55 Estim Creat Clear Calc 103.3 Estimated GFR > 60 Random Glucose 88 Fasting Glucose Calcium 8.7 D Vancomycin Trough COVID-19 (BOB) COVID-19 Clin Com Blood Type O Positive Antibody Screen NEGATIVE 08/04/21 08/04/21 08/04/21 05:20 05:20 12:50 WBC 18.3 H RBC 3.32 L Hgb 9.3 L Hct 29.0 L MCV 87.3 MCH 28.0 MCHC 32.1 RDW 15.2 Plt Count 601 H MPV 9.1 L Immature Gran % (Auto) 5.0 H Neut % (Auto) 76.1 H Lymph % (Auto) 13.5 L [place] % (Auto) 4.3 Eos % (Auto) 0.8 Baso % (Auto) 0.3 Lymph # (Auto) 2.5 [place] # (Auto) 0.8 Eos # (Auto) 0.1 Baso # (Auto) 0.1 Abs Immat Gran (auto) 0.91 H Absolute Neuts (auto) 14.0 H Absolute Nucleated RBC 0.000 Nucleated RBC % (auto) 0.0 Sodium 136 Potassium 3.3 Chloride 101 Carbon Dioxide 26 Anion Gap 12 BUN 10 Creatinine 0.51 Estim Creat Clear Calc 111.4 Estimated GFR > 60 Random Glucose Fasting Glucose 115 H Calcium 8.4 Vancomycin Trough COVID-19 (BOB) Negative COVID-19 [employer] See Note Blood Type Antibody Screen 08/05/21 08/05/21 08/06/21 05:25 05:25 01:08 WBC 16.5 H RBC 3.17 L Hgb 8.6 L Hct 27.9 L MCV 88.0 MCH 27.1 MCHC 30.8 L RDW 15.2 Plt Count 579 H MPV 9.2 L Immature Gran % (Auto) 4.0 H Neut % (Auto) 75.5 H Lymph % (Auto) 14.7 L [place] % (Auto) 4.4 Eos % (Auto) 1.2 Baso % (Auto) 0.2 Lymph # (Auto) 2.4 [place] # (Auto) 0.7 Eos # (Auto) 0.2 Baso # (Auto) 0.0 Abs Immat Gran (auto) 0.66 H Absolute Neuts (auto) 12.5 H Absolute Nucleated RBC 0.000 Nucleated RBC % (auto) 0.0 Sodium 137 Potassium 3.8 Chloride 105 Carbon Dioxide 24 Anion Gap 12 BUN 7 L Creatinine 0.51 Estim Creat Clear Calc 111.4 Estimated GFR > 60 Random Glucose TNP Fasting Glucose 85 Calcium 7.9 L Vancomycin Trough 12.3 COVID-19 (BOB) COVID-19 [employer] Blood Type Antibody Screen 08/06/21 08/06/21 05:36 05:36 WBC 15.4 H RBC 3.19 L Hgb 8.7 L Hct 28.1 L MCV 88.1 MCH 27.3 MCHC 31.0 RDW 15.1 Plt Count 582 H MPV 9.0 L Immature Gran % (Auto) 4.5 H Neut % (Auto) 74.8 H Lymph % (Auto) 15.2 L [place] % (Auto) 3.8 Eos % (Auto) 1.4 Baso % (Auto) 0.3 Lymph # (Auto) 2.3 [place] # (Auto) 0.6 Eos # (Auto) 0.2 Baso # (Auto) 0.0 Abs Immat Gran (auto) 0.69 H Absolute Neuts (auto) 11.5 H Absolute Nucleated RBC 0.000 Nucleated RBC % (auto) 0.0 Sodium 138 Potassium 3.7 Chloride 105 Carbon Dioxide 26 Anion Gap 11 L BUN 6 L Creatinine 0.50 Estim Creat Clear Calc 113.6 Estimated GFR > 60 Random Glucose Fasting Glucose 96 Calcium 8.2 L Vancomycin Trough COVID-19 (BOB) COVID-19 Clin Com Blood Type Antibody Screen Airway Mallampati Class: II TM Dist: >3cm Neck ROM: Full Loose/Missing/Broken Teeth: Yes (many missing and broken) Heart: [id number] Lungs: cta b/l Assessment and Plan Assessment Anesthesia Assessment: Anesthesia Plan Discussed and Chart Reviewed Final Anesthetic Review Family History of Problems with Anesthesia: No History of Problems with Anesthesia: No NPO: Yes ASA Class: III Final Preanesthetic Review: No Changes in Pt Med Stat, Meds/Allgs Chart Reviewed, Consent Obtained/Reviewed and Anes Risks/Benef Reviewed Patient Risk: High Procedure Risk: Intermediate Assessment/Block/Sedation in SS: Assess/Block/Sedation-SS Anesthetic Plan Anesthetic Plan: GA and Agree w/ Assess. and Plan Disposition: Standard PACU
--- NOTE | 2021-08-06 12:32 | MHC.CLN ---
F/U CURRENTLY NPO FOR PROCEDURE-WASHOUT OF RIGHT HIP. PRESSURE INJURIES STAGE II BILATERAL BUTTOCKS AND STAGE III COCCYX. EATING WELL AT MEALS PRIOR TO NPO. WHEN DIET RESUMES, RECOMMEND REGULAR DIET WITH JALYN BID TO PROMOTE WOUND HEALING.
--- NOTE | 2021-08-06 12:35 | P.HPSUR_ITS ---
Pre-Procedural Eval Section A Date of Service: 08/06/21 The patient is an INPATIENT: Yes Changes since office visit: Yes Patient answered all questions; No Cold of Flu in the past 2 weeks, No New Medical Problems and No Changes in Medication The History & Physical has been completed within 30 days and I have reviewed it.: Yes Section B Chief Complaint: right hip pain Details of Present Illness: Unstable right hip with ongoing instability and now with infection Relevant Family History (Specify if Yes): No Relevant Social History: Other (specify) (mostly wheelchair bound.) Present Medications: see Short Stay Collaborative assessment Medical History: Significant History (wheelchair dependant, requires 24 hr care) History of Previous Operations: Relevant previous surgery/procedure and date(s) Allergies: Allergies Allergy/AdvReac Type Severity Reaction Status Date / Time [place] nut Allergy Unknown Verified 08/03/21 13:11 lactose Allergy Diarrhea Verified 08/03/21 13:11 Review of Systems Sugical H&P ROS: Negative: Constitution, Cardiovascular, Respiratory, Neurological, Hem-Onc, Allergic/Immunologic, Gastrointestinal, Genitourinary, Integumentary, Endocrine and Eyes/Ears/Nose/Throat and Yes, Specify: Psychiatric (minimally communicative) and Musculoskeletal (draining right hip incision;l sacral decubits Stage 3) Exam Surgical H&P Exam: Normal: HEENT, Normal: Lungs and Normal: Abdomen and Significant Findings: Heart (pacemaker), Significant Findings: Extremities (nof following commands but moving toes and ankles), Significant Findings: Skin (sacral decub s3) and Significant Findings: Neurological (dementia) Plan Diagnosis/Plan: Change (Plan is to removed right hemiarthroplasty) I have reviewed the history and physical and performed a pertinent physical examination on my patient. No changes have occurred unless specified.
--- NOTE | 2021-08-06 13:04 | P.PICC_ITS ---
PICC Line Insertion NPICC Diagnosis: R HIP INFECTION Indication: [facility] IV ANTIBIOTICS Pertinent Labs: REVIEWED Technique: Following informed consent including risks, benefits and alternatives and using sterile technique including cap and mask, sterile gown, glove and drape, the RIGHT arm was prepped and draped in the usual sterile fashion of full barrier technique with [facility]. Following completion of [place] Protocol the skin and soft tissues were anesthetized with 1% Lidocaine plain. Using ultrasound guidance, BRACHIAL vein access was obtained IN SINGLE ATTEMPT BY THIS RN; INITIAL ATTEMPT TO RUE BASILIC VEIN x1 BUT UNSUCCESSFUL, SO TOTAL x2 ATTEMPTS BY THIS RN. Over an 0.018 wire through peel-away sheath, a 4-[place]NADIAN, SINGLE LUMEN, PASV PICC line was positioned. Catheter length is 46 CM internal length, 0 CM external length, for a total trimmed length of 46 CM. The procedure was performed in S-272. Tip verification was performed by Raghav Matson with [place] 3CG. Tip located in SVC. Ultrasound was used to document vein patency and for needle entry. A formal ultrasound picture and cardiac rhythm strip was recorded. [employer] has released the line for use and it is currently dressed with a StatLock, Tegaderm, and CHG disc. Verification has been performed for blood return and line patency. Arm Circumference: 28.5 CM Equipment: [employer] POWERPICC SOLO Catheter Type: SINGLE LUMEN, 4-CANADIAN, PASV Lot #: [id number]
--- NOTE | 2021-08-06 13:32 | P.PNIM_ITS ---
Subjective Subjective Date of Service: 08/06/21 Interval History: Patient being followed for right hip wound, is NPO complaining of dry mouth and mild bilateral leg pain, at bedside. Review of Systems General no headache,no dizziness, no fever chills.? CVS no chest pain, no palpitation.? Respiratory no cough, no sob.? Gastrointestinal no nausea, no vomiting, no abdominal pain Review of Systems: Yes all other systems are reviewed and are negative Physical Exam Vital Signs: Vital Signs: Last Vital Signs Temp 99.0 F 08/06/21 12:23 Pulse 83 08/06/21 12:23 Resp 16 08/06/21 12:23 BP 99/63 08/06/21 12:23 Pulse Ox 96 08/06/21 12:23 Body Mass Index 27.4 General? no acute distress.? Neck supple no JVD. CVS? regular rate rhythm, Respiratory lungs clear to auscultation, no respiratory distress, no wheeze, no rhonchi. Gastrointestinal abdomen soft, nontender, bowel sounds audible, no guarding , no rigidity. Extremities no edema. Left knee and leg normal examination no redness or swelling noted. Right hip dressing in place Neuro nonfocal , speech clear Skin? Stage 2/3 coccyx/buttock ulcer Psych appropriate affect Objective Data Active Medications Acetaminophen (Acetaminophen 325 Mg Tablet) 650 mg PO Q6H PRN PRN Reason: Pain, Mild (Pain Scale 1-3) Last Admin: 08/04/21 09:47 Dose: 650 mg Documented by: DALY Docusate Sodium (Docusate Sodium 100 Mg Capsule) 100 mg PO BID [facility] Last Admin: 08/06/21 09:28 Dose: Not Given Documented by: DALY Non-Admin Reason: NPO Fentanyl (Fentanyl Citrate/Pf 100 Mcg/2 Ml Vial) 50 mcg IVPUSH Q5M PRN; Pr otocol PRN Reason: Pain, Moderate (Pain Scale 4-6 Hydromorphone HCl (Hydromorphone Hcl 0.5 Mg/0.5 Ml Syringe) 0.5 mg IVPUSH Q5M PRN; Protocol PRN Reason: Pain, Severe (Pain Scale 7-10) Vancomycin HCl 1,250 mg/ (Sodium Chloride) 250 mls @ 166.667 mls/hr IV Q12H [facility] Last Infusion: 08/06/21 04:33 Dose: 166.67 mls/hr Documented by: TIAGO Promethazine HCl 6.25 mg/ (Sodium Chloride) 50.25 mls @ 201 mls/hr IV ONCE PRN PRN Reason: Nausea and Vomiting Ondansetron HCl (Ondansetron Hcl 4 Mg/2 Ml Vial) 4 mg IVPUSH Q8H PRN PRN Reason: nausea Ondansetron HCl (Ondansetron Hcl 4 Mg/2 Ml Vial) 4 mg IVPUSH ONCE PRN PRN Reason: Nausea and Vomiting Oxycodone HCl (Oxycodone Hcl Immed Release 5 Mg Tablet) 5 mg PO Q4H PRN PRN Reason: Pain, Moderate (Pain Scale 4-6 Last Admin: 08/06/21 09:27 Dose: 5 mg Documented by: DALY Oxycodone HCl (Oxycodone Hcl Immed Release 5 Mg Tablet) 10 mg PO ONCE PRN PRN Reason: Pain, Severe (Pain Scale 7-10) Pharmacy Consult (Consult Rx Vancomycin Dosing) 1 each MISCELLANE DAILY PRN PRN Reason: Consult order Sodium Chloride (0.9 % Sodium Chloride Flush 3 Ml Syringe) 3 ml IVFLUSH QSHIFT [facility] Last Admin: 08/06/21 09:28 Dose: Not Given Documented by: DALY Non-Admin Reason: IV Running Sodium Chloride (0.9 % Sodium Chloride Flush 10 Ml Syringe) 5 ml IVFLUSH TID [facility] Zinc Oxide (Zinc Oxide 20% Ointment 28.35 Gm Tube) 1 appl TOPICAL DAILY PRN; Protocol PRN Reason: Rash Labs CBC & Chem 7: 08/06/21 05:36 08/06/21 05:36 Labs: Laboratory Results - last 24 hr 08/06/21 08/06/21 08/06/21 01:08 05:36 05:36 MCV 88.1 MCH 27.3 MCHC 31.0 RDW 15.1 Plt Count 582 H MPV 9.0 L Immature Gran % (Auto) 4.5 H Neut % (Auto) 74.8 H Lymph % (Auto) 15.2 L [place] % (Auto) 3.8 Eos % (Auto) 1.4 Baso % (Auto) 0.3 Lymph # (Auto) 2.3 [place] # (Auto) 0.6 Eos # (Auto) 0.2 Baso # (Auto) 0.0 Abs Immat Gran (auto) 0.69 H Absolute Neuts (auto) 11.5 H Absolute Nucleated RBC 0.000 Nucleated RBC % (auto) 0.0 Anion Gap 11 L Estim Creat Clear Calc 113.6 Estimated GFR > 60 Fasting Glucose 96 Calcium 8.2 L Vancomycin Trough 12.3 Microbiology Microbiology Results: Microbiology 08/04/21 07:43 Gram Stain - Final Hip Right Routine Culture - Final Methicillin Res Staph Aureus 08/03/21 19:22 Blood Culture - Preliminary Blood - Venous No growth after 48 hours. 08/03/21 19:22 Blood Culture - Preliminary Blood - Venous No growth after 48 hours. Assessment and Plan (1) Pressure injury of sacral region, stage 3: Status: Acute (2) Unspecified open wound, right hip, initial encounter: Status: Acute (3) History of hemiarthroplasty of right hip: Status: Acute (4) Pacemaker: Status: Acute Assessment and Plan: 56 yo F who sustained a mechanical fall in May 2021 and underwent a successful operative repair, and since then has had multiple dislocations and recently admitted from 07/24 to 07/29 for the same thing, she underwent hip revision on 07/27 and seen in the ortho office and due to concern of hip instability sent to hospital for admission #Right hip wound with purulent drainage status post revision of right hip on 07/27 ? Wound culture growing MRSA , blood cultures x2 negative, no fever, no pain, no other acute issues overnight ? WBC slowly trending down, ? Case discussed with Dr. Babcock she recommend? IV vancomycin day 3 ? follow CBC, BMP while on vanco, follow Vanco trough ? Schedule for removal of hardware rt hip and washout by Orthopedic surgery today ? Informed care of plan to at bedside and answered all his questions # Hypothyroidism continue synthroid # Dementia without behavioral disturbances continue home medication 4. Heart-block s/p PPM no active issues, monitor, 5. Decubital ulcer coccyx/buttock stage 2/3 continue frequent position change, triad cream,high-protein diet and air loss bed Right ankle stage 2 pressure injury cont.triad cover with small gauze/foam dressing. DVT prophylaxis continue compression stocking. Quality Stroke Does the patient have a stroke diagnosis?: No VTE Prior VTE?: No VTE Risk Level:: Surgical - high VTE Device Contraindication: N/A - Device Ordered VTE Drug Contraindication: N/A - Med Ordered
[2021-08-06] MEDS: 0.9 % Sodium Chloride Flush 10 ML SYRINGE 5 ML IVFLUSH ×2 (15:41→22:36)
[2021-08-06] MEDS: Docusate Sodium 100 MG CAPSULE PO (22:34)
[2021-08-07] VITALS (13 sets, daily range): BP systolic 84–101; BP diastolic 50–58; PULSE 87–103; RESP 16–18; TEMP 36.1–37.2; O2SAT 93–97
[2021-08-07] MEDS: vancomycin HCL 1,250 MG in 0.9 % Sodium Chloride 250 ML 166.67 MG IV ×2 (02:37→14:38)
[2021-08-07] MEDS: Lactated Ringers 1,000 ML 999 ML IV ×2 (05:13→06:42)
[2021-08-07 06:32] LABS: MANUAL DIFF FLAG NO
--- NOTE | 2021-08-07 06:37 | PC.NURSE ---
5:00am BP 88/54 (manual). Pt stating she just felt tired. Dr Jj notified. LR bolus ordered and given. Reassessment of vital signs taken at 0615 with results of 96.9 87-84/52 (manual) 97% RA. Pt repeated again that she was just tired. Dr Jj notified of new results after bolus. Another LR bolus was ordered and is infusing. Will pass along in report.
[2021-08-07 06:46] LABS: Basophils Percent Auto 0.2 % (0-2); Eosinophils Percent Auto 0.1 % (0-4); Hemoglobin 7.3 g/dl (12.0-16.0); Imm Gran Abs Auto 0.88 X10*3/uL (0.00-0.03); Lymphocytes Absolute Auto 2.7 X10*3/uL (1.2-4.9); Lymphocytes Percent Auto 11.9 % (20-40); Mean Corpuscular HGB Conc 31.7 g/dl (31.0-35.0); Mean Corpuscular Hemoglobin 28.1 pg (27.0-33.0); Mean Corpuscular Volume 88.5 fL (80-98); Mean Platelet Volume 9.1 fL (9.4-12.3); Monocytes Absolute Auto 0.9 X10*3/uL (0.1-1.2); Monocytes Percent Auto 4.1 % (2-11); Neutrophils Absolute Auto 17.7 X10*3/uL (2.0-8.3); Neutrophils Percent Auto 79.7 % (45-73); Platelet Count 498 X10*3/uL (160-400); Red Cell Distribution Width 15.2 % (11.0-16.0); White Blood Count 22.3 X10*3/uL (4.8-10.8)
[2021-08-07 07:01] LABS: Anion Gap 13 (12-20); Blood Urea Nitrogen 8 mg/dL (9-16); Calcium 7.9 mg/dL (8.4-10.2); Carbon Dioxide 25 mmol/L (22-29); Chloride 104 mmol/L (96-108); Creatinine Clr Calc Pharmacy 115.9; Estimated Glomerular Filt Rate > 60; Glucose Fasting 86 mg/dL (60-99); Potassium 3.9 mmol/L (3.3-5.1); Sodium 138 mmol/L (135-145)
[2021-08-07] MEDS: 0.9 % Sodium Chloride Flush 3 ML SYRINGE IVFLUSH ×3 (08:25→19:54)
[2021-08-07] MEDS: 0.9 % Sodium Chloride Flush 10 ML SYRINGE 5 ML IVFLUSH ×2 (08:25→19:53)
[2021-08-07] MEDS: Docusate Sodium 100 MG CAPSULE PO (08:26)
--- NOTE | 2021-08-07 09:41 | PM.PNORT ---
Subjective Subjective Date of Service: 08/07/21 Interval history: POD1 s/p removal right hip enrique with I&D. Patient is resting comfortably in bed. Overnight patient b/p was soft and therefore medicine administered 1L bolus. Patient's bp remains soft this am and complains that she feels tired. Plan to transfuse today. Pain is well managed. Physical Exam Vital Signs: Vital Signs: Last Vital Signs Temp 96.9 F 08/07/21 06:15 Pulse 87 08/07/21 06:15 Resp 16 08/07/21 06:15 BP 90/50 L 08/07/21 08:10 Pulse Ox 97 08/07/21 06:15 Body Mass Index 27.4 Const: General: cooperative, healthy appearing and no acute distress Resp: Effort & Inspection: normal respiratory effort and able to speak in complete sentences Cardio: Rate: regular rate Peripheral pulses: Peripheral pulses 2+ throughout GI: Palpation (GI): Soft to palpation Skin: Lesions: no lesions Rashes: no rashes Extrem: Other: Right hip bandages are clean, dry, and intact. Patient is able to plantarflex and dorsiflex. NVI. Procedures Date of Service Date of Service: 08/07/21 Progress Note: A&P Assessment and plan (1) Unspecified open wound, right hip, initial encounter: Status: Acute Assessment and Plan: Continue pain mgmnt Resume Lovenox at 1:00pm today for dvt ppx begin PT for right hip removal of enrique with I&D. Girdle stone- WBAT General surgery to monitor sacral ulcer Continue abx per ID Dispo planning-Pending PT eval, pain mgmnt (2) History of hemiarthroplasty of right hip: Status: Acute Fall Risk Details Current Medications: Current Medications Acetaminophen (Acetaminophen 325 Mg Tablet) 650 mg PO Q6H PRN PRN Reason: Pain, Mild (Pain Scale 1-3) Last Admin: 08/04/21 09:47 Dose: 650 mg Documented by: Docusate Sodium (Docusate Sodium 100 Mg Capsule) 100 mg PO BID [facility] Last Admin: 08/07/21 08:26 Dose: 100 mg Documented by: Fentanyl (Fentanyl Citrate/Pf 100 Mcg/2 Ml Vial) 50 mcg IVPUSH Q5M PRN; Protocol PRN Reason: Pain, Moderate (Pain Scale 4-6 Hydromorphone HCl (Hydromorphone Hcl 0.5 Mg/0.5 Ml Syringe) 0.5 mg IVPUSH Q5M PRN; Protocol PRN Reason: Pain, Severe (Pain Scale 7-10) Vancomycin HCl 1,250 mg/ (Sodium Chloride) 250 mls @ 166.667 mls/hr IV Q12H [facility] Last Infusion: 08/07/21 04:23 Dose: Infused Documented by: Promethazine HCl 6.25 mg/ (Sodium Chloride) 50.25 mls @ 201 mls/hr IV ONCE PRN PRN Reason: Nausea and Vomiting Ondansetron HCl (Ondansetron Hcl 4 Mg/2 Ml Vial) 4 mg IVPUSH Q8H PRN PRN Reason: nausea Ondansetron HCl (Ondansetron Hcl 4 Mg/2 Ml Vial) 4 mg IVPUSH ONCE PRN PRN Reason: Nausea and Vomiting Oxycodone HCl (Oxycodone Hcl Immed Release 5 Mg Tablet) 5 mg PO Q4H PRN PRN Reason: Pain, Moderate (Pain Scale 4-6 Last Admin: 08/06/21 09:27 Dose: 5 mg Documented by: Oxycodone HCl (Oxycodone Hcl Immed Release 5 Mg Tablet) 10 mg PO ONCE PRN PRN Reason: Pain, Severe (Pain Scale 7-10) Pharmacy Consult (Consult Rx Vancomycin Dosing) 1 each MISCELLANE DAILY PRN PRN Reason: Consult order Sodium Chloride (0.9 % Sodium Chloride Flush 3 Ml Syringe) 3 ml IVFLUSH QSHIFT [facility] Last Admin: 08/07/21 08:25 Dose: 3 ml Documented by: Sodium Chloride (0.9 % Sodium Chloride Flush 10 Ml Syringe) 5 ml IVFLUSH TID [facility] Last Admin: 08/07/21 08:25 Dose: 5 ml Documented by: Zinc Oxide (Zinc Oxide 20% Ointment 28.35 Gm Tube) 1 appl TOPICAL DAILY PRN; Protocol PRN Reason: Rash Time Spent With Patient Time: Total time spent is greater than 50% in coordination of care (as documented) at patient's floor/unit and/or counseling patient: Time with patient: less than 15 minutes Quality Stroke Does the patient have a stroke diagnosis?: No VTE Prior VTE?: No VTE Risk Level:: Surgical - high VTE Device Contraindication: N/A - Device Ordered VTE Drug Contraindication: N/A - Med Ordered
[2021-08-07] MEDS: Enoxaparin Sodium 40 MG/0.4 ML SYRINGE SUBCUT (12:37)
[2021-08-07] MEDS: oxyCODONE HCl Immed Release 5 MG TABLET PO (12:38)
[2021-08-07 13:24] LABS: Vancomycin Trough 13.5 mcg/mL (10.0-20.0)
--- NOTE | 2021-08-07 13:41 | HO.POSTANES ---
Post Anesthesia Evaluation Post Anesthesia Evaluation Vital Signs: Vital Signs Temp Pulse Resp BP Pulse Ox 08/07/21 13:03 98.5 F 91 18 92/50 L 08/07/21 12:47 98.0 F 94 18 90/50 L 08/07/21 12:00 98.0 F 94 18 94 08/07/21 08:10 90/50 L 08/07/21 06:15 96.9 F 87 16 84/52 L 97 08/07/21 04:00 98.9 F 92 16 88/54 L 93 Anesthesia: General Endotracheal-GETA Mental Status: Awake Pain Control: Satisfactory Nausea/Vomiting: None Hydration: Adequate Anesthesia-Related Issues: No Anes. Related Issues
--- NOTE | 2021-08-07 13:50 | HO.PM.IMPN ---
Subjective Subjective Date of Service: 08/07/21 Interval History: Patient being followed for left hip wound, this a.m. patient is awake alert complaining of tiredness denies pain, noted to have soft blood pressure overnight received IV fluid BP remains low, patient denies chest pain, no shortness of breath or dizziness. Review of Systems General weakness, no headache,no dizziness, no fever chills.? CVS no chest pain, no palpitation.? Respiratory no cough, no sob.? Gastrointestinal no nausea, no vomiting, no abdominal pain Review of Systems: Yes all other systems are reviewed and are negative Physical Exam Vital Signs: Vital Signs: Last Vital Signs Temp 98.5 F 08/07/21 13:03 Pulse 91 08/07/21 13:03 Resp 18 08/07/21 13:03 BP 92/50 L 08/07/21 13:03 Pulse Ox 94 08/07/21 12:00 Body Mass Index 27.4 General? no acute distress.? Neck supple no JVD. CVS? regular rate rhythm, Respiratory lungs clear to auscultation, no respiratory distress, no wheeze, no rhonchi. Gastrointestinal abdomen soft, nontender, bowel sounds audible, no guarding , no rigidity. Extremities no edema. Right hip dressing in place, no drainage noted Neuro nonfocal , speech clear Skin? Stage 2/3 coccyx/buttock ulcer/right ankle is stage II pressure ulcer Psych appropriate affect Objective Data Active Medications Acetaminophen (Acetaminophen 325 Mg Tablet) 650 mg PO Q6H PRN PRN Reason: Pain, Mild (Pain Scale 1-3) Last Admin: 08/04/21 09:47 Dose: 650 mg Documented by: VENL Docusate Sodium (Docusate Sodium 100 Mg Capsule) 100 mg PO BID [facility] Last Admin: 08/07/21 08:26 Dose: 100 mg Documented by: COTEMA Enoxaparin Sodium (Enoxaparin Sodium 40 Mg/0.4 Ml Syringe) 40 mg SUBCUT Q24H [facility] Last Admin: 08/07/21 12:37 Dose: 40 mg Documented by: COTEMA Fentanyl (Fentanyl Citrate/Pf 100 Mcg/2 Ml Vial) 50 mcg IVPUSH Q5M PRN; Protocol PRN Reason: Pain, Moderate (Pain Scale 4-6 Hydromorphone HCl (Hydromorphone Hcl 0.5 Mg/0.5 Ml Syringe) 0.5 mg IVPUSH Q5M PRN; Protocol PRN Reason: Pain, Severe (Pain Scale 7-10) Vancomycin HCl 1,250 mg/ (Sodium Chloride) 250 mls @ 166.667 mls/hr IV Q12H [facility] Last Infusion: 08/07/21 04:23 Dose: 0 mls/hr Documented by: SHERIDL Promethazine HCl 6.25 mg/ (Sodium Chloride) 50.25 mls @ 201 mls/hr IV ONCE PRN PRN Reason: Nausea and Vomiting Ondansetron HCl (Ondansetron Hcl 4 Mg/2 Ml Vial) 4 mg IVPUSH Q8H PRN PRN Reason: nausea Ondansetron HCl (Ondansetron Hcl 4 Mg/2 Ml Vial) 4 mg IVPUSH ONCE PRN PRN Reason: Nausea and Vomiting Oxycodone HCl (Oxycodone Hcl Immed Release 5 Mg Tablet) 5 mg PO Q4H PRN PRN Reason: Pain, Moderate (Pain Scale 4-6 Last Admin: 08/07/21 12:38 Dose: 5 mg Documented by: COTEMA Oxycodone HCl (Oxycodone Hcl Immed Release 5 Mg Tablet) 10 mg PO ONCE PRN PRN Reason: Pain, Severe (Pain Scale 7-10) Pharmacy Consult (Consult Rx Vancomycin Dosing) 1 each MISCELLANE DAILY PRN PRN Reason: Consult order Sodium Chloride (0.9 % Sodium Chloride Flush 3 Ml Syringe) 3 ml IVFLUSH QSHIFT [facility] Last Admin: 08/07/21 08:25 Dose: 3 ml Documented by: YEFRI Sodium Chloride (0.9 % Sodium Chloride Flush 10 Ml Syringe) 5 ml IVFLUSH TID [facility] Last Admin: 08/07/21 08:25 Dose: 5 ml Documented by: RAMANAEMA Zinc Oxide (Zinc Oxide 20% Ointment 28.35 Gm Tube) 1 appl TOPICAL DAILY PRN; Protocol PRN Reason: Rash Labs CBC & Chem 7: 08/07/21 06:13 08/07/21 06:13 Labs: Laboratory Results - last 24 hr 08/07/21 08/07/21 08/07/21 06:13 06:13 10:45 MCV 88.5 MCH 28.1 MCHC 31.7 RDW 15.2 Plt Count 498 H MPV 9.1 L Immature Gran % (Auto) 4.0 H Neut % (Auto) 79.7 H Lymph % (Auto) 11.9 L [place] % (Auto) 4.1 Eos % (Auto) 0.1 Baso % (Auto) 0.2 Lymph # (Auto) 2.7 [place] # (Auto) 0.9 Eos # (Auto) 0.0 Baso # (Auto) 0.0 Abs Immat Gran (auto) 0.88 H Absolute Neuts (auto) 17.7 H Absolute Nucleated RBC 0.000 Nucleated RBC % (auto) 0.0 Anion Gap 13 Estim Creat Clear Calc 115.9 Estimated GFR > 60 Fasting Glucose 86 Calcium 7.9 L Vancomycin Trough Blood Type O Positive Antibody Screen NEGATIVE Crossmatch See Detail 08/07/21 12:15 MCV MCH MCHC RDW Plt Count MPV Immature Gran % (Auto) Neut % (Auto) Lymph % (Auto) [place] % (Auto) Eos % (Auto) Baso % (Auto) Lymph # (Auto) [place] # (Auto) Eos # (Auto) Baso # (Auto) Abs Immat Gran (auto) Absolute Neuts (auto) Absolute Nucleated RBC Nucleated RBC % (auto) Anion Gap Estim Creat Clear Calc Estimated GFR Fasting Glucose Calcium Vancomycin Trough 13.5 Blood Type Antibody Screen Crossmatch Assessment and Plan (1) Pressure injury of sacral region, stage 3: Status: Acute (2) Unspecified open wound, right hip, initial encounter: Status: Acute (3) History of hemiarthroplasty of right hip: Status: Acute (4) Pacemaker: Status: Acute Assessment and Plan: 56 yo F who sustained a mechanical fall in May 2021 and underwent a successful operative repair, and since then has had multiple dislocations and recently admitted from 07/24 to 07/29 for the same thing, she underwent hip revision on 07/27 and seen in the ortho office and due to concern of hip instability sent to hospital for admission #Right hip wound with purulent drainage status post revision of right hip on 07/27 status post right hip surgery with removal of hardware status post I&D POD 1 Noted to have low blood pressure and significant drop in hematocrit Status post IV fluids, 2 units ordered by Ortho follow CBC ? Wound culture growing MRSA , blood cultures x2 negative, no fever, no pain, no other acute issues overnight ? WBC bumped this morning to 22.3 will continue IV vancomycin day 4, follow CBC and Vanco trough # acute blood loss anemia Hematocrit dropped to 23, will transfuse 2 units follow hematocrit, follow clinical course for volume overload ? # Hypothyroidism continue synthroid # Dementia without behavioral disturbances continue home medication 4. Heart-block s/p PPM no active issues, monitor, 5. Decubital ulcer coccyx/buttock stage 2/3 continue frequent position change, triad cream,high-protein diet and air loss bed? Right ankle? stage 2 pressure injury cont.triad? cover with small gauze/foam dressing. DVT prophylaxis continue compression stocking. Quality Stroke Does the patient have a stroke diagnosis?: No VTE Prior VTE?: No VTE Risk Level:: Surgical - high VTE Device Contraindication: N/A - Device Ordered VTE Drug Contraindication: N/A - Med Ordered
[2021-08-08] MEDS: vancomycin HCL 1,250 MG in 0.9 % Sodium Chloride 250 ML 166.67 MG IV ×2 (01:57→14:15)
[2021-08-08 04:30] VITALS: BP 111/54; PULSE 87; RESP 16; TEMP 37.1; O2SAT 93
[2021-08-08 06:05] LABS: MANUAL DIFF FLAG NO
[2021-08-08 06:09] LABS: Basophils Absolute Auto 0.1 X10*3/uL (0.0-0.2); Basophils Percent Auto 0.3 % (0-2); Eosinophils Absolute Auto 0.1 X10*3/uL (0.0-0.4); Eosinophils Percent Auto 0.8 % (0-4); Hemoglobin 10.8 g/dl (12.0-16.0); Imm Gran Abs Auto 0.47 X10*3/uL (0.00-0.03); Imm Gran Pct Auto 3.1 % (0.0-0.4); Lymphocytes Absolute Auto 2.6 X10*3/uL (1.2-4.9); Lymphocytes Percent Auto 16.6 % (20-40); Mean Corpuscular HGB Conc 32.7 g/dl (31.0-35.0); Mean Corpuscular Hemoglobin 28.1 pg (27.0-33.0); Mean Corpuscular Volume 85.7 fL (80-98); Mean Platelet Volume 8.8 fL (9.4-12.3); Monocytes Absolute Auto 0.7 X10*3/uL (0.1-1.2); Monocytes Percent Auto 4.8 % (2-11); Neutrophils Absolute Auto 11.4 X10*3/uL (2.0-8.3); Neutrophils Percent Auto 74.4 % (45-73); Platelet Count 431 X10*3/uL (160-400); Red Blood Count 3.85 X10*6/uL (4.20-5.50); Red Cell Distribution Width 15.7 % (11.0-16.0); White Blood Count 15.4 X10*3/uL (4.8-10.8)
[2021-08-08 06:24] LABS: Anion Gap 11 (12-20); Blood Urea Nitrogen 5 mg/dL (9-16); Calcium 8.1 mg/dL (8.4-10.2); Carbon Dioxide 26 mmol/L (22-29); Chloride 106 mmol/L (96-108); Creatinine Clr Calc Pharmacy 111.4; Estimated Glomerular Filt Rate > 60; Glucose Fasting 102 mg/dL (60-99); Potassium 3.6 mmol/L (3.3-5.1); Sodium 139 mmol/L (135-145)
[2021-08-08] MEDS: Docusate Sodium 100 MG CAPSULE PO (07:31)
[2021-08-08] MEDS: oxyCODONE HCl Immed Release 5 MG TABLET PO (07:31)
[2021-08-08] MEDS: 0.9 % Sodium Chloride Flush 3 ML SYRINGE IVFLUSH ×2 (07:32→14:15)
[2021-08-08] MEDS: 0.9 % Sodium Chloride Flush 10 ML SYRINGE 5 ML IVFLUSH ×2 (07:32→14:15)
[2021-08-08 08:00] VITALS: BP 112/60; PULSE 84; RESP 18; TEMP 36.4; O2SAT 95
--- NOTE | 2021-08-08 09:26 | P.PNOP_ITS ---
Subjective Subjective Date of Service: 08/08/21 Interval history: POD2 s/p right hip removal of enrique with I&D. Patient is resting comfortably in bed. Pain is well managed. No overnight events. No additional complaints. Physical Exam Vital Signs: Vital Signs: Last Vital Signs Temp 97.5 F 08/08/21 08:00 Pulse 84 08/08/21 08:00 Resp 18 08/08/21 08:00 BP 112/60 08/08/21 08:00 Pulse Ox 95 08/08/21 08:00 Body Mass Index 27.4 Const: General: cooperative, healthy appearing and no acute distress Resp: Effort & Inspection: normal respiratory effort and able to speak in complete sentences Cardio: Rate: regular rate Peripheral pulses: Peripheral pulses 2+ throughout GI: Palpation (GI): Soft to palpation Skin: Lesions: no lesions Rashes: no rashes Extrem: Other: Right hip bandages are clean, dry, and intact. Patient is able to plantarflex and dorsiflex. NVI. Procedures Date of Service Date of Service: 08/08/21 Progress Note: A&P Assessment and plan (1) Pressure injury of sacral region, stage 3: Status: Acute (2) Unspecified open wound, right hip, initial encounter: Status: Acute Assessment and Plan: Continue pain mgmnt Continue Lovenox for dvt ppx Continue PT for right hip removal of enrique with I&D. Girdle stone- WBAT General surgery to monitor sacral ulcer and ankle ulcer Continue abx per ID Dispo planning-Pending PT eval, pain mgmnt Fall Risk Details Current Medications: Current Medications Acetaminophen (Acetaminophen 325 Mg Tablet) 650 mg PO Q6H PRN PRN Reason: Pain, Mild (Pain Scale 1-3) Last Admin: 08/04/21 09:47 Dose: 650 mg Documented by: Docusate Sodium (Docusate Sodium 100 Mg Capsule) 100 mg PO BID [facility] Last Admin: 08/08/21 07:31 Dose: 100 mg Documented by: Enoxaparin Sodium (Enoxaparin Sodium 40 Mg/0.4 Ml Syringe) 40 mg SUBCUT Q24H [facility] Last Admin: 08/07/21 12:37 Dose: 40 mg Documented by: Fentanyl (Fentanyl Citrate/Pf 100 Mcg/2 Ml Vial) 50 mcg IVPUSH Q5M PRN; Protocol PRN Reason: Pain, Moderate (Pain Scale 4-6 Vancomycin HCl 1,250 mg/ (Sodium Chloride) 250 mls @ 166.667 mls/hr IV Q12H [facility] Last Infusion: 08/08/21 03:36 Dose: Infused Documented by: Promethazine HCl 6.25 mg/ (Sodium Chloride) 50.25 mls @ 201 mls/hr IV ONCE PRN PRN Reason: Nausea and Vomiting Ondansetron HCl (Ondansetron Hcl 4 Mg/2 Ml Vial) 4 mg IVPUSH Q8H PRN PRN Reason: nausea Ondansetron HCl (Ondansetron Hcl 4 Mg/2 Ml Vial) 4 mg IVPUSH ONCE PRN PRN Reason: Nausea and Vomiting Oxycodone HCl (Oxycodone Hcl Immed Release 5 Mg Tablet) 5 mg PO Q4H PRN PRN Reason: Pain, Moderate (Pain Scale 4-6 Last Admin: 08/08/21 07:31 Dose: 5 mg Documented by: Pharmacy Consult (Consult Rx Vancomycin Dosing) 1 each MISCELLANE DAILY PRN PRN Reason: Consult order Sodium Chloride (0.9 % Sodium Chloride Flush 3 Ml Syringe) 3 ml IVFLUSH QSHIFT [facility] Last Admin: 08/08/21 07:32 Dose: 3 ml Documented by: Sodium Chloride (0.9 % Sodium Chloride Flush 10 Ml Syringe) 5 ml IVFLUSH TID [facility] Last Admin: 08/08/21 07:32 Dose: 5 ml Documented by: Zinc Oxide (Zinc Oxide 20% Ointment 28.35 Gm Tube) 1 appl TOPICAL DAILY PRN; Protocol PRN Reason: Rash Time Spent With Patient Time: Total time spent is greater than 50% in coordination of care (as documented) at patient's floor/unit and/or counseling patient: Time with patient: less than 15 minutes Quality Stroke Does the patient have a stroke diagnosis?: No VTE Prior VTE?: No VTE Risk Level:: Surgical - high VTE Device Contraindication: N/A - Device Ordered VTE Drug Contraindication: N/A - Med Ordered
[2021-08-08 12:00] VITALS: BP 106/61; PULSE 98; RESP 18; TEMP 36.6; O2SAT 95
[2021-08-08] MEDS: Enoxaparin Sodium 40 MG/0.4 ML SYRINGE SUBCUT (14:15)
[2021-08-08 15:40] VITALS: BP 109/64; PULSE 94; RESP 18; TEMP 36.7; O2SAT 97
--- NOTE | 2021-08-08 15:47 | HO.PM.IMPN ---
Subjective Subjective Date of Service: 08/08/21 Interval History: Complaining of right hip pain, denies dizziness lightheadedness eating breakfast, and bedside feels she is doing better. Review of Systems General no headache,no dizziness, no fever chills.? CVS no chest pain, no palpitation.? Respiratory no cough, no sob.? Gastrointestinal no nausea, no vomiting, no abdominal pain Review of Systems: Yes all other systems are reviewed and are negative Physical Exam Vital Signs: Vital Signs: Last Vital Signs Temp 98.1 F 08/08/21 15:40 Pulse 94 08/08/21 15:40 Resp 18 08/08/21 15:40 BP 109/64 08/08/21 15:40 Pulse Ox 97 08/08/21 15:40 Body Mass Index 27.4 General? no acute distress.? Neck supple no JVD. CVS? regular rate rhythm, Respiratory lungs clear to auscultation, no respiratory distress, no wheeze, no rhonchi. Gastrointestinal abdomen soft, nontender, bowel sounds audible, no guarding , no rigidity. Extremities no edema. Right hip dressing in place, no drainage noted Neuro nonfocal , speech clear Skin? Stage 2/3 coccyx/buttock ulcer/right ankle stage II pressure ulcer Psych appropriate affect Objective Data Active Medications Acetaminophen (Acetaminophen 325 Mg Tablet) 650 mg PO Q6H PRN PRN Reason: Pain, Mild (Pain Scale 1-3) Last Admin: 08/04/21 09:47 Dose: 650 mg Documented by: VENL Docusate Sodium (Docusate Sodium 100 Mg Capsule) 100 mg PO BID [facility] Last Admin: 08/08/21 07:31 Dose: 100 mg Documented by: COTEMA Enoxaparin Sodium (Enoxaparin Sodium 40 Mg/0.4 Ml Syringe) 40 mg SUBCUT Q24H [facility] Last Admin: 08/08/21 14:15 Dose: 40 mg Documented by: COTEMA Fentanyl (Fentanyl Citrate/Pf 100 Mcg/2 Ml Vial) 50 mcg IVPUSH Q5M PRN; Protocol PRN Reason: Pain, Moderate (Pain Scale 4-6 Vancomycin HCl 1,250 mg/ (Sodium Chloride) 250 mls @ 166.667 mls/hr IV Q12H [facility] Last Admin: 08/08/21 14:15 Dose: 166.67 mls/hr Documented by: YEFRI Promethazine HCl 6.25 mg/ (Sodium Chloride) 50.25 mls @ 201 mls/hr IV ONCE PRN PRN Reason: Nausea and Vomiting Ondansetron HCl (Ondansetron Hcl 4 Mg/2 Ml Vial) 4 mg IVPUSH Q8H PRN PRN Reason: nausea Ondansetron HCl (Ondansetron Hcl 4 Mg/2 Ml Vial) 4 mg IVPUSH ONCE PRN PRN Reason: Nausea and Vomiting Pharmacy Consult (Consult Rx Vancomycin Dosing) 1 each MISCELLANE DAILY PRN PRN Reason: Consult order Sodium Chloride (0.9 % Sodium Chloride Flush 3 Ml Syringe) 3 ml IVFLUSH QSHIFT [facility] Last Admin: 08/08/21 14:15 Dose: 3 ml Documented by: YEFRI Sodium Chloride (0.9 % Sodium Chloride Flush 10 Ml Syringe) 5 ml IVFLUSH TID [facility] Last Admin: 08/08/21 14:15 Dose: 5 ml Documented by: YEFRI Zinc Oxide (Zinc Oxide 20% Ointment 28.35 Gm Tube) 1 appl TOPICAL DAILY PRN; Protocol PRN Reason: Rash Labs CBC & Chem 7: 08/08/21 05:57 08/08/21 05:57 Labs: Laboratory Results - last 24 hr 08/07/21 08/08/21 08/08/21 10:45 05:57 05:57 MCV 85.7 MCH 28.1 MCHC 32.7 RDW 15.7 Plt Count 431 H MPV 8.8 L Immature Gran % (Auto) 3.1 H Neut % (Auto) 74.4 H Lymph % (Auto) 16.6 L [place] % (Auto) 4.8 Eos % (Auto) 0.8 Baso % (Auto) 0.3 Lymph # (Auto) 2.6 [place] # (Auto) 0.7 Eos # (Auto) 0.1 Baso # (Auto) 0.1 Abs Immat Gran (auto) 0.47 H Absolute Neuts (auto) 11.4 H Absolute Nucleated RBC 0.000 Nucleated RBC % (auto) 0.0 Anion Gap 11 L Estim Creat Clear Calc 111.4 Estimated GFR > 60 Random Glucose TNP Fasting Glucose 102 H Calcium 8.1 L Blood Type O Positive Antibody Screen NEGATIVE Crossmatch See Detail Assessment and Plan (1) Pressure injury of sacral region, stage 3: Status: Acute (2) Unspecified open wound, right hip, initial encounter: Status: Acute (3) History of hemiarthroplasty of right hip: Status: Acute (4) Pacemaker: Status: Acute Assessment and Plan: 56 yo F who sustained a mechanical fall in May 2021 and underwent a successful operative repair, and since then has had multiple dislocations and recently admitted from 07/24 to 07/29 for the same thing, she underwent hip revision on 07/27 and seen in the ortho office and due to concern of hip instability sent to hospital for admission #Right hip wound with purulent drainage status post revision of right hip on 07/27 ? status post right hip surgery with removal of hardware status post I&D POD? 2 Blood pressure improved, good pain control Status post 2 units of packed RBC hematocrit improved from 23 to 33 ? Wound culture growing MRSA , blood cultures x2 negative, no fever, no other acute issues overnight ? WBC trending down continue IV vancomycin day 5, follow CBC and Vanco trough, will discuss with ID regarding duration of antibiotic Will resume oxycodone for pain # acute blood loss anemia ? s/p 2 units of packed RBC hematocrit improved, patient clinically stable # Hypothyroidism continue synthroid # Dementia without behavioral disturbances continue home medication 4. Heart-block s/p PPM no active issues, monitor, 5. Decubital ulcer coccyx/buttock stage 2/3 continue frequent position change, triad cream,high-protein diet and air loss bed? Right ankle? stage 2 pressure injury cont.triad? cover with small gauze/foam dressing. 6. Hypokalemia resolved ? DVT prophylaxis continue compression stocking. Quality Stroke Does the patient have a stroke diagnosis?: No VTE Prior VTE?: No VTE Risk Level:: Surgical - high VTE Device Contraindication: N/A - Device Ordered VTE Drug Contraindication: N/A - Med Ordered
[2021-08-08 19:49] VITALS: BP 124/74; PULSE 105; RESP 18; TEMP 36.9; O2SAT 95
[2021-08-08 23:30] VITALS: BP 112/64; PULSE 94; RESP 14; TEMP 36.7; O2SAT 93
--- NOTE | 2021-08-08 23:34 | PC.NURSE ---
Upon assessment of patient no iv or Picc line was in. No dressings in place and nothing found in the bed. New IV placed in patients left arm. Dr Jj notified.
[2021-08-09 01:22] LABS: Vancomycin Trough 16.8 mcg/mL (10.0-20.0)
[2021-08-09] MEDS: vancomycin HCL 1,250 MG in 0.9 % Sodium Chloride 250 ML 166.67 MG IV (02:03)
[2021-08-09] MEDS: 0.9 % Sodium Chloride Flush 3 ML SYRINGE IVFLUSH ×2 (02:05→08:30)
[2021-08-09 04:00] VITALS: BP 111/70; PULSE 84; RESP 14; TEMP 36.8; O2SAT 95
[2021-08-09 07:47] LABS: MANUAL DIFF FLAG NO
[2021-08-09 07:49] LABS: Basophils Absolute Auto 0.1 X10*3/uL (0.0-0.2); Basophils Percent Auto 0.5 % (0-2); Eosinophils Absolute Auto 0.2 X10*3/uL (0.0-0.4); Eosinophils Percent Auto 1.2 % (0-4); Hematocrit 35.7 % (37-47); Hemoglobin 11.4 g/dl (12.0-16.0); Imm Gran Pct Auto 3.3 % (0.0-0.4); Lymphocytes Absolute Auto 1.8 X10*3/uL (1.2-4.9); Lymphocytes Percent Auto 14.7 % (20-40); Mean Corpuscular HGB Conc 31.9 g/dl (31.0-35.0); Mean Corpuscular Volume 87.7 fL (80-98); Mean Platelet Volume 8.6 fL (9.4-12.3); Monocytes Absolute Auto 0.6 X10*3/uL (0.1-1.2); Monocytes Percent Auto 4.7 % (2-11); Neutrophils Absolute Auto 9.3 X10*3/uL (2.0-8.3); Neutrophils Percent Auto 75.6 % (45-73); Platelet Count 423 X10*3/uL (160-400); Red Blood Count 4.07 X10*6/uL (4.20-5.50); Red Cell Distribution Width 16.3 % (11.0-16.0); White Blood Count 12.3 X10*3/uL (4.8-10.8)
--- NOTE | 2021-08-09 07:55 | PM.PNORT ---
Subjective Subjective Date of Service: 08/09/21 Interval history: POD3 s/p right hip removal of enrique with I&D. Patient is resting comfortably in bed. Pain is well managed. Overnight the patient removed her IV, PICC line, and dressing. No additional complaints. Physical Exam Vital Signs: Vital Signs: Last Vital Signs Temp 98.2 F 08/09/21 04:00 Pulse 84 08/09/21 04:00 Resp 14 08/09/21 04:00 BP 111/70 08/09/21 04:00 Pulse Ox 95 08/09/21 04:00 Body Mass Index 27.4 Const: General: cooperative, healthy appearing and no acute distress Resp: Effort & Inspection: normal respiratory effort and able to speak in complete sentences Cardio: Rate: regular rate Peripheral pulses: Peripheral pulses 2+ throughout GI: Palpation (GI): Soft to palpation Skin: Lesions: no lesions Rashes: no rashes Extrem: Other: Right hip bandages are clean, dry, and intact. Patient is able to plantarflex and dorsiflex. NVI. Procedures Date of Service Date of Service: 08/09/21 Progress Note: A&P Assessment and plan (1) Pressure injury of sacral region, stage 3: Status: Acute Assessment and Plan: Continue pain mgmnt Continue Lovenox for dvt ppx Continue PT for right hip removal of enrique with I&D - WBAT Medicine and wound nurse to monitor sacral ulcer and ankle ulcer Continue abx per ID Dispo planning-Pending PT eval, pain mgmnt (2) Unspecified open wound, right hip, initial encounter: Status: Acute Fall Risk Details Current Medications: Current Medications Acetaminophen (Acetaminophen 325 Mg Tablet) 650 mg PO Q6H PRN PRN Reason: Pain, Mild (Pain Scale 1-3) Last Admin: 08/04/21 09:47 Dose: 650 mg Documented by: Docusate Sodium (Docusate Sodium 100 Mg Capsule) 100 mg PO BID [facility] Last Admin: 08/08/21 21:49 Dose: Not Given Documented by: Enoxaparin Sodium (Enoxaparin Sodium 40 Mg/0.4 Ml Syringe) 40 mg SUBCUT Q24H [facility] Last Admin: 08/08/21 14:15 Dose: 40 mg Documented by: Fentanyl (Fentanyl Citrate/Pf 100 Mcg/2 Ml Vial) 50 mcg IVPUSH Q5M PRN; Protocol PRN Reason: Pain, Moderate (Pain Scale 4-6 Vancomycin HCl 1,250 mg/ (Sodium Chloride) 250 mls @ 166.667 mls/hr IV Q12H [facility] Last Infusion: 08/09/21 03:35 Dose: Infused Documented by: Promethazine HCl 6.25 mg/ (Sodium Chloride) 50.25 mls @ 201 mls/hr IV ONCE PRN PRN Reason: Nausea and Vomiting Ondansetron HCl (Ondansetron Hcl 4 Mg/2 Ml Vial) 4 mg IVPUSH Q8H PRN PRN Reason: nausea Ondansetron HCl (Ondansetron Hcl 4 Mg/2 Ml Vial) 4 mg IVPUSH ONCE PRN PRN Reason: Nausea and Vomiting Oxycodone HCl (Oxycodone Hcl Immed Release 5 Mg Tablet) 5 mg PO Q6H PRN PRN Reason: Pain, Moderate (Pain Scale 4-6 Pharmacy Consult (Consult Rx Vancomycin Dosing) 1 each MISCELLANE DAILY PRN PRN Reason: Consult order Sodium Chloride (0.9 % Sodium Chloride Flush 3 Ml Syringe) 3 ml IVFLUSH QSHIFT [facility] Last Admin: 08/09/21 02:05 Dose: 3 ml Documented by: Sodium Chloride (0.9 % Sodium Chloride Flush 10 Ml Syringe) 5 ml IVFLUSH TID [facility] Last Admin: 08/08/21 21:48 Dose: Not Given Documented by: Zinc Oxide (Zinc Oxide 20% Ointment 28.35 Gm Tube) 1 appl TOPICAL DAILY PRN; Protocol PRN Reason: Rash Time Spent With Patient Time: Total time spent is greater than 50% in coordination of care (as documented) at patient's floor/unit and/or counseling patient: Time with patient: less than 15 minutes Quality Stroke Does the patient have a stroke diagnosis?: No VTE Prior VTE?: No VTE Risk Level:: Surgical - high VTE Device Contraindication: N/A - Device Ordered VTE Drug Contraindication: N/A - Med Ordered
[2021-08-09 08:00] VITALS: BP 103/59; PULSE 81; RESP 15; TEMP 36.6; O2SAT 96
[2021-08-09 08:03] LABS: Anion Gap 13 (12-20); Blood Urea Nitrogen 5 mg/dL (9-16); Calcium 8.4 mg/dL (8.4-10.2); Carbon Dioxide 26 mmol/L (22-29); Chloride 103 mmol/L (96-108); Creatinine Clr Calc Pharmacy 105.1; Estimated Glomerular Filt Rate > 60; Glucose Random 98 mg/dL (60-115); Potassium 3.7 mmol/L (3.3-5.1); Sodium 138 mmol/L (135-145)
[2021-08-09] MEDS: Docusate Sodium 100 MG CAPSULE PO (08:29)
[2021-08-09] MEDS: 0.9 % Sodium Chloride Flush 10 ML SYRINGE 5 ML IVFLUSH (08:29)
[2021-08-09] MEDS: oxyCODONE HCl Immed Release 5 MG TABLET PO ×2 (08:30→15:30)
[2021-08-09 09:34] VITALS: BP 103/59; PULSE 81; O2SAT 96
--- NOTE | 2021-08-09 10:27 | MHC.CLN ---
Addendum entered by Enma Echevarria RD 08/09/21 11:08: WOUNDS: STAGE II TO RIGHT ANKLE (AND HEEL) IDENTIFIED 08/06. Original Note: F/U PRESENT AT VISIT. REPORTS THAT PATIENT IS EATING VERY WELL AND FEELING BETTER. DIET=REGUALR. SUPPLEMENT JALYN BID TO PROMOTE WOUND HEALING. WOUNDS: STAGE II BILATERAL BUTTOCK, STAGE III COCCYX. CONTINUE TO FOLLOW.
[2021-08-09 12:00] VITALS: BP 111/67; PULSE 97; RESP 16; TEMP 36.4; O2SAT 97; O2SAT 98
[2021-08-09] MEDS: Enoxaparin Sodium 40 MG/0.4 ML SYRINGE SUBCUT (12:11)
--- NOTE | 2021-08-09 13:07 | HO.PM.IMPN ---
Subjective Subjective Date of Service: 08/09/21 Interval History: No complain of pain this a.m., denies dizziness,lightheadedness eating breakfast, at bedside feels she is doing better. Review of Systems General no headache,no dizziness, no fever chills.? CVS no chest pain, no palpitation.? Respiratory no cough, no sob.? Gastrointestinal no nausea, no vomiting, no abdominal pain Review of Systems: Yes all other systems are reviewed and are negative Physical Exam Vital Signs: Vital Signs: Last Vital Signs Temp 97.5 F 08/09/21 12:00 Pulse 97 08/09/21 12:00 Resp 16 08/09/21 12:00 BP 111/67 08/09/21 12:00 Pulse Ox 98 08/09/21 12:00 Body Mass Index 27.4 General? no acute distress.? Neck supple no JVD. CVS? regular rate rhythm, Respiratory lungs clear to auscultation, no respiratory distress, no wheeze, no rhonchi. Gastrointestinal abdomen soft, nontender, bowel sounds audible, no guarding , no rigidity. Extremities no edema. Right hip dressing in place, no drainage noted Neuro nonfocal , speech clear Skin? Stage 2/3 coccyx/buttock ulcer/right ankle stage II pressure ulcer Objective Data Active Medications Acetaminophen (Acetaminophen 325 Mg Tablet) 650 mg PO Q6H PRN PRN Reason: Pain, Mild (Pain Scale 1-3) Last Admin: 08/04/21 09:47 Dose: 650 mg Documented by: DALY Docusate Sodium (Docusate Sodium 100 Mg Capsule) 100 mg PO BID [facility] Last Admin: 08/09/21 08:29 Dose: 100 mg Documented by: DALY Doxycycline Hyclate (Doxycycline Hyclate 100 Mg Tablet) 100 mg PO Q12H [facility] Last Admin: 08/09/21 12:15 Dose: 100 mg Documented by: JACQUELINE Enoxaparin Sodium (Enoxaparin Sodium 40 Mg/0.4 Ml Syringe) 40 mg SUBCUT Q24H [facility] Last Admin: 08/09/21 12:11 Dose: 40 mg Documented by: JACQUELINE Fentanyl (Fentanyl Citrate/Pf 100 Mcg/2 Ml Vial) 50 mcg IVPUSH Q5M PRN; Protocol PRN Reason: Pain, Moderate (Pain Scale 4-6 Vancomycin HCl 1,250 mg/ (Sodium Chloride) 250 mls @ 166.667 mls/hr IV Q12H [facility] Last Infusion: 08/09/21 03:35 Dose: 0 mls/hr Documented by: STAN Promethazine HCl 6.25 mg/ (Sodium Chloride) 50.25 mls @ 201 mls/hr IV ONCE PRN PRN Reason: Nausea and Vomiting Ondansetron HCl (Ondansetron Hcl 4 Mg/2 Ml Vial) 4 mg IVPUSH Q8H PRN PRN Reason: nausea Ondansetron HCl (Ondansetron Hcl 4 Mg/2 Ml Vial) 4 mg IVPUSH ONCE PRN PRN Reason: Nausea and Vomiting Oxycodone HCl (Oxycodone Hcl Immed Release 5 Mg Tablet) 5 mg PO Q6H PRN PRN Reason: Pain, Moderate (Pain Scale 4-6 Last Admin: 08/09/21 08:30 Dose: 5 mg Documented by: DALY Pharmacy Consult (Consult Rx Vancomycin Dosing) 1 each MISCELLANE DAILY PRN PRN Reason: Consult order Sodium Chloride (0.9 % Sodium Chloride Flush 3 Ml Syringe) 3 ml IVFLUSH QSHIFT [facility] Last Admin: 08/09/21 08:30 Dose: 3 ml Documented by: DALY Sodium Chloride (0.9 % Sodium Chloride Flush 10 Ml Syringe) 5 ml IVFLUSH TID [facility] Last Admin: 08/09/21 08:29 Dose: 5 ml Documented by: DALY Zinc Oxide (Zinc Oxide 20% Ointment 28.35 Gm Tube) 1 appl TOPICAL DAILY PRN; Protocol PRN Reason: Rash Labs CBC & Chem 7: 08/09/21 07:28 08/09/21 07:28 Labs: Laboratory Results - last 24 hr 08/09/21 08/09/21 08/09/21 00:49 07:28 07:28 MCV 87.7 MCH 28.0 MCHC 31.9 RDW 16.3 H Plt Count 423 H MPV 8.6 L Immature Gran % (Auto) 3.3 H Neut % (Auto) 75.6 H Lymph % (Auto) 14.7 L [place] % (Auto) 4.7 Eos % (Auto) 1.2 Baso % (Auto) 0.5 Lymph # (Auto) 1.8 [place] # (Auto) 0.6 Eos # (Auto) 0.2 Baso # (Auto) 0.1 Abs Immat Gran (auto) 0.40 H Absolute Neuts (auto) 9.3 H Absolute Nucleated RBC 0.000 Nucleated RBC % (auto) 0.0 Anion Gap 13 Estim Creat Clear Calc 105.1 Estimated GFR > 60 Random Glucose 98 Calcium 8.4 Vancomycin Trough 16.8 Microbiology Microbiology Results: Microbiology 08/03/21 19:22 Blood Culture - Final Blood - Venous No growth after 5 days. 08/03/21 19:22 Blood Culture - Final Blood - Venous No growth after 5 days. Assessment and Plan (1) Pressure injury of sacral region, stage 3: Status: Acute (2) Unspecified open wound, right hip, initial encounter: Status: Acute (3) History of hemiarthroplasty of right hip: Status: Acute (4) Pacemaker: Status: Acute Assessment and Plan: 56 yo F who sustained a mechanical fall in May 2021 and underwent a successful operative repair, and since then has had multiple dislocations and recently admitted from 07/24 to 07/29 for the same thing, she underwent hip revision on 07/27 and seen in the ortho office and due to concern of hip instability sent to hospital for admission #Right hip wound with purulent drainage status post revision of right hip on 07/27 ? status post right hip surgery with removal of hardware status post I&D POD? 3 ? Blood pressure remains stable, good pain control ? Status post 2 units of packed RBC hematocrit improved from 23 to 33 ? Wound culture growing MRSA , blood cultures x2 negative, no fever, no other acute issues overnight ? WBC trending down continue IV vancomycin day 6, Vanco trough 16.8, id recommend 6 weeks of antibiotic, patient pulled PICC line will need a new PICC line prior to discharge Continue current pain management and PT, discharge plan as per Ortho # acute blood loss anemia ? s/p 2 units of packed RBC hematocrit improved, patient clinically stable # Hypothyroidism continue synthroid # Dementia without behavioral disturbances continue home medication 4. Heart-block s/p PPM no active issues, monitor, 5. Decubital ulcer coccyx/buttock stage 2/3 continue frequent position change, triad cream,high-protein diet and air loss bed? Right ankle? stage 2 pressure injury cont.triad? cover with small gauze/foam dressing. 6. Hypokalemia resolved ? DVT prophylaxis continue compression stocking. Quality Stroke Does the patient have a stroke diagnosis?: No VTE Prior VTE?: No VTE Risk Level:: Surgical - high VTE Device Contraindication: N/A - Device Ordered VTE Drug Contraindication: N/A - Med Ordered
--- NOTE | 2021-08-09 13:43 | MHC.CM.PN ---
PT DISCHARGING BACK TO [facility] PENDING INSURANCE AUTH, ACTION FOR BLS TRANSPORT
--- NOTE | 2021-08-09 14:08 | PC.NURSE ---
Skin/wound assessment completed today. Patient has stage 3 to sacrum and stage 2 to buttocks. Silver alginate applied to area with EPC barrier cream around wound covered with large foam. Patient also has stage 2 pressure wounds to anterior right ankle and posterior right ankle. Triad applied to wounds covered with foam dressing. No other skin issues noted at this time.
[2021-08-09 14:44] LABS: COVID-19 Test Negative (Negative); IDNOW Serial# 08D9AD1C
--- NOTE | 2021-08-09 20:12 | P.DS_ITS ---
DS: Providers Provider Date of Service: 08/09/21 Date of admission: 08/03/21 14:46 Primary care physician: Unknown Physician Consults: 08/03/21 14:46 Consult to Hospitalist Routine Consulting Provider: Hospitalist Reason For Exam: routine medical management 08/04/21 08:01 Consult to Infectious Diseases Stat Consulting Provider: Elsa Babcock Reason for consultation: right hip s/p enrique infection 08/05/21 07:32 Consult to Wound Care Routine Consulting Provider: Nivia Perez Reason for consultation: pressure sores to coccyx DS: Diagnosis Discharge Diagnosis (1) Pressure injury of sacral region, stage 3: Status: Acute (2) Unspecified open wound, right hip, initial encounter: Status: Acute DS: Summary Hospital Course Hospital Course: Ms. Santiago is a 56yo F who sustained a mechanical fall 06/10/2021 and underwent a successful right hip hemiarthroplasty with Dr. Madden. Since then has had multiple dislocations. She underwent a right hip hemiarthroplasty revision on 07/27/21 and was seen in our office outpatient. During evaluation of the prior incision site the patient was noted to have coupious amount of drainage and was admitted to the hospital for continued hip instability with plans of surgical intervention for a girdle stone. The patient underwent a successful right hip hemiarthroplasty removal and I&D on 08/06/21, they were transferred to PACU and then to the floor to recover. During their stay, their vitals were stable, afebrile at 97.5. H/H POD1 7.3/23.0 therefore the patient was transfused with 2 units of PRBC's. The following day H/H improved to 10.8/33.0 POD 1 she resumed her Lovenox for DVT ppx, they also received Physical Therapy services twice a day. Prior to discharge, their dressing was changed, incision clean dry and intact, new Aquacel dressing applied and the plan was to be discharged back to her nursing facility. Time Spent with Patient Time attestation: Total time spent providing and/or coordinating discharge services: Discharge coordination time: Less than 30 minutes Quality: Stroke Does the patient have a stroke diagnosis?: No Physical Exam Vital Signs: Vital Signs: Last Vital Signs Temp 97.5 F 08/09/21 12:00 Pulse 97 08/09/21 12:00 Resp 16 08/09/21 12:00 BP 111/67 08/09/21 12:00 Pulse Ox 98 08/09/21 12:00 Body Mass Index 27.4 Const: General: cooperative, healthy appearing and no acute distress Resp: Effort & Inspection: normal respiratory effort and able to speak in c omplete sentences Cardio: Rate: regular rate Peripheral pulses: Peripheral pulses 2+ throughout GI: Palpation (GI): Soft to palpation Skin: Lesions: no lesions Rashes: no rashes Extrem: Other: Right hip bandage is clean, dry, and intact. Patient is able to plantarflex and dorsiflex. NVI. DS: Data Data Completed and Pending Completed studies during hospitalization [Text1]: Procedures Insertion of Pacemaker Lead into Right Atrium, Percutaneous Approach (06/09/21) Insertion of Pacemaker Lead into Right Ventricle, Percutaneous Approach (06/09/21) Insertion of Pacemaker, Dual Chamber into Chest Subcutaneous Tissue and Fascia, Open Approach (06/09/21) Removal of Synthetic Substitute from Right Hip Joint, Open Approach (07/23/21) Replacement of Right Hip Joint with Synthetic Substitute, Uncemented, Open Approach (07/23/21) Replacement of Right Hip Joint, Femoral Surface with Synthetic Substitute, Uncemented, Open Approach (06/09/21) Revision of Synthetic Substitute in Right Hip Joint, External Approach (07/07/21) Revision of Synthetic Substitute in Right Hip Joint, Femoral Surface, Open Approach (07/20/21) Transfusion of Nonautologous Red Blood Cells into Peripheral Vein, Percutaneous Approach (07/23/21) Labs on day of discharge: Laboratory Results - last 24 hr 08/09/21 08/09/21 08/09/21 00:49 07:28 07:28 WBC 12.3 H RBC 4.07 L Hgb 11.4 L Hct 35.7 L MCV 87.7 MCH 28.0 MCHC 31.9 RDW 16.3 H Plt Count 423 H MPV 8.6 L Immature Gran % (Auto) 3.3 H Neut % (Auto) 75.6 H Lymph % (Auto) 14.7 L [place] % (Auto) 4.7 Eos % (Auto) 1.2 Baso % (Auto) 0.5 Lymph # (Auto) 1.8 [place] # (Auto) 0.6 Eos # (Auto) 0.2 Baso # (Auto) 0.1 Abs Immat Gran (auto) 0.40 H Absolute Neuts (auto) 9.3 H Absolute Nucleated RBC 0.000 Nucleated RBC % (auto) 0.0 Sodium 138 Potassium 3.7 Chloride 103 Carbon Dioxide 26 Anion Gap 13 BUN 5 L Creatinine 0.54 Estim Creat Clear Calc 105.1 Estimated GFR > 60 Random Glucose 98 Calcium 8.4 Vancomycin Trough 16.8 COVID-19 (BOB) COVID-19 Clin Com 08/09/21 14:05 WBC RBC Hgb Hct MCV MCH MCHC RDW Plt Count MPV Immature Gran % (Auto) Neut % (Auto) Lymph % (Auto) [place] % (Auto) Eos % (Auto) Baso % (Auto) Lymph # (Auto) [place] # (Auto) Eos # (Auto) Baso # (Auto) Abs Immat Gran (auto) Absolute Neuts (auto) Absolute Nucleated RBC Nucleated RBC % (auto) Sodium Potassium Chloride Carbon Dioxide Anion Gap BUN Creatinine Estim Creat Clear Calc Estimated GFR Random Glucose Calcium Vancomycin Trough COVID-19 (BOB) Negative COVID-19 Clin Com See Note Discharge Plan Discharge Patient Disposition: [facility] ([place] Discharge Diagnosis: s/p right hip enrique resection Referrals: [facility] [place] [Outside] - 1 Day (short term rehab) Deanna oDrman PA-C [Physician Virtual Recruiter] - 2 Weeks (08/20/21 at 11:30) Physician,Unknown [Primary Care Provider] - 1 Week Discharge Medications: New zinc oxide 20 % Ointment 1 appl topical DAILY PRN (Reason: Rash) Qty: 28 RF: 0 doxycycline hyclate 100 mg Tablet 100 mg PO Q12H 42 Days Qty: 84 RF: 0 Continued nicotine 14 mg/24 hr patch 24 hour 1 patch topical DAILY RF: 0 acetaminophen 325 mg Tablet 325 mg PO Q4H PRN (Reason: Pain, Mild (Pain Scale 1-3)) 30 Days Qty: 240 RF: 0 enoxaparin 40 mg/0.4 mL Syringe 40 mg subcut Q24H 42 Days Qty: 16.8 RF: 0 docusate sodium 100 mg Capsule 100 mg PO BID 30 Days Qty: 60 RF: 0 oxycodone 5 mg tablet 5 mg PO Q4H PRN (Reason: pain) 7 Days Qty: 42 RF: 0 cholecalciferol (vitamin D3) 25 mcg (1,000 unit) capsule 25 mcg PO DAILY Qty: 90 RF: 3 folic acid 1 mg tablet 1 mg PO DAILY Qty: 90 RF: 3 levothyroxine 75 mcg tablet 75 mcg PO DAILY Qty: 90 RF: 3 Discharge Orders: Discharge Order (Routine); Ordered 08/09/21 Ordered By: Deanna Dorman Diet: regular diet Activity on Discharge: Use cane or walker Stand Alone Forms: Patient Portal Discharge page Activity Restrictions/Additional Instructions: Wound care instruction: Wash buttocks and sacrum with soap and water, pat dry then apply barrier cream around wound edges, then apply silver alginate to wound bed, cover with large foam. Wash right foot with soap and water, apply Triad to stage 2 pressure wound to anterior right ankle and to stage 2 pressure ulcer to posterior right ankle, cover with foam dressing. If no foam dressing available may use gauze and roll gauze. Care Plan Goals: rehab right hip s/p enrique resection Health Concerns: Pressure wound sacrum, right foot Plan of Treatment: WBAT Keep dressing clean, dry, and intact P.T. s/p right hip resection of hemiarthroplasty Doxycycline 100mg PO BID x 6 weeks Continue Lovenox 40mg sub q x 6 weeks Assessment: stable for d/c Discharge Date/Time: 08/09/21 16:30
--- NOTE | 2021-09-07 12:02 | PM.OP ---
Brief Operative Note Date of Service: 08/06/21 Pre-op diagnosis: infected unstable right hip hemiarthroplasty Post-op diagnosis: same Procedure: right hip girdlestone Implants: none Surgeon: Earnest Zafar MD Anesthesia: GETA Was an Traveling Sales Representative used for this Procedure?: No Estimated blood loss (mL): 200 IV fluids (mL): 800 Pathology: none sent Condition: stable Disposition: PACU
--- NOTE | 2021-09-07 12:05 | P.OP_ITS ---
Operative Note Operative Note Date of Service: 08/06/21 Narrative: Pre-op diagnosis: infected unstable right hip hemiarthroplasty Post-op diagnosis: same Procedure: right hip girdlestone Implants: none Surgeon: Earnest Zafar MD Anesthesia: GETA Was an Fiberglass Fabricator used for this Procedure?: No Estimated blood loss (mL): 200 IV fluids (mL): 800 Pathology: none sent Condition: stable Disposition: PACU Indications: This is a 56 yo F with a n unastable and infected right hip hemiarthroplasty that I have been managing for the past month. She has had at least 4 dislocations. She has had a difficult time adhering to postop range of motion restrictions. She is minimally ambulatory and cognitively imparied. Given the multiple dislocations in the setting of a minimally ambulatory and cognitively impaired patient I recommended a girdle stone procedure. I explained the risks benefits and alternatives to her who consented to go forward with the procedure. Procedure in detail: Patient was brought to the operating room and placed in the left lateral decubitus position. All bony prominences were well padded she was prepped and draped in standard sterile fashion. A time-out was called to identify proper site proper procedure and proper surgeon and IV antibiotics per weight were administered. I began by opening up the prior incision. There was copious discharge from the wound that tracked down deep to the metal prosthesis. This had a foul odor and appeared purulent. A Charnley retractor was placed and the prosthesis was examined. It was dislocated. The abductor tendon was non- existent. I removed the head with a tamp and then slowly used a curved osteotome around the stem. After several minutes of freeing up the proximal femur I was able to place a back slap hammer onto the prosthesis and was removed relatively easily. There was no extensive bone loss and the anatomy of the proximal femur remained intact. Hemostasis was maintained with cautery. I irrigated copiously and with a combination of sharp debridement and a rongeur I removed all necrotic tissue down to bleeding bone both in the proximal femur and in the periacetabular region as well as the tissues superior to the tensor fascia. Once I had irrigated with 9 L of saline I closed the tensor with Prolene and nylon on the skin. Sterile dressings were applied and pateitn was extubated and brought to recovery room in stable condition. There were no known complications.
== END 2021-08-09 16:30 | disposition skilled nursing facility (03) | DRG 463 ==
PROVIDERS: Hospitalist; Physician Assistant; Admitting Provider Orthopaedic Surgery; Visit Provider Orthopaedic Surgery
PROC: 0SPR0JZ Removal of Synthetic Substitute from Right Hip Joint, Femoral Surface, Open Approach (ICD-10-PCS; principal; 2021-08-06 12:30)
DX: T84.51XA Infection and inflammatory reaction due to internal right hip prosthesis, initial encounter (principal); L89.153 Pressure ulcer of sacral region, stage 3; D62 Acute posthemorrhagic anemia; F03.90 Unspecified dementia, unspecified severity, without behavioral disturbance, psychotic disturbance, mood disturbance, and anxiety; E03.9 Hypothyroidism, unspecified; L89.152 Pressure ulcer of sacral region, stage 2; L89.512 Pressure ulcer of right ankle, stage 2; Z20.822 Contact with and (suspected) exposure to COVID-19; F17.210 Nicotine dependence, cigarettes, uncomplicated; Z95.0 Presence of cardiac pacemaker; Z71.6 Tobacco abuse counseling; Z79.890 Hormone replacement therapy; Z79.899 Other long term (current) drug therapy
CPT/HCPCS: 36415; 36573; 80048; 80202; 85025; 86850; 86900; 86901; 86923; 87040; 87071; 87077; 87186; 87205; 87635; 97162; 99212; C1751; J0690; J1100; J1650; J2250; J2405; J3010; J3370; P9016

== ENCOUNTER → 2021-08-26 14:21 | Outpatient (BNVA) | payer OTHER, SELFPAY | PROVIDERS: Visit Provider Physician Assistant | DX: S71.001D Unspecified open wound, right hip, subsequent encounter (principal) | CPT/HCPCS: 99212 ==

== ENCOUNTER → 2021-09-13 13:14 | Outpatient (BNVA) | payer OTHER, SELFPAY | PROVIDERS: Visit Provider Physician Assistant | DX: M24.451 Recurrent dislocation, right hip (principal); S71.001A Unspecified open wound, right hip, initial encounter; W18.39XA Other fall on same level, initial encounter; Y93.9 Activity, unspecified; Y92.099 Unspecified place in other non-institutional residence as the place of occurrence of the external cause; Y99.8 Other external cause status; D72.829 Elevated white blood cell count, unspecified; Z91.011 Allergy to milk products; Z91.018 Allergy to other foods | CPT/HCPCS: 99212 ==

== ENCOUNTER 2021-09-15 16:53 | Emergency (ER) | payer OTHER, SELFPAY ==
[2021-09-15 17:26] VITALS: BP 108/63; PULSE 102; RESP 18; TEMP 36.6; O2SAT 96; BMI 32.9
--- NOTE | 2021-09-15 17:44 | ED.LOWEXIN ---
HPI - Extremity Injury (Lower) General Chief Complaint: Wound/Laceration Stated Complaint: LEFT HIP PAIN AND SWELLING,NEEDS DRAINING PER SNF Time Seen by Provider: 09/15/21 17:27 Source: EMS and RN notes reviewed Mode of arrival: EMS History of Present Illness HPI Narrative: Patient is 56 years old status post right hemiarthroplasty 06/02 status post infection with MRSA on doxycycline developed seroma 60 cc of which drained on 09/13 by orthopedics sent by intermediate staff for slightly increased swelling at the site of drainage otherwise patient is in stable health no fever at baseline of dementia no increase in pain Related Data Home Medications Medication Instructions Recorded Confirmed nicotine 14 mg/24 hr daily 1 patch TOPICAL DAILY 07/23/21 07/23/21 transdermal patch Previous Rx's Medication Instructions Recorded cholecalciferol (vitamin D3) 25 25 mcg PO DAILY #90 cap 12/30/20 mcg (1,000 unit) capsule folic acid 1 mg tablet 1 mg PO DAILY #90 tab 12/30/20 levothyroxine 75 mcg tablet 75 mcg PO DAILY #90 tab 12/30/20 acetaminophen 325 mg tablet 325 mg PO Q4H PRN 30 Days #240 tab 07/29/21 docusate sodium 100 mg capsule 100 mg PO BID 30 Days #60 cap 07/29/21 enoxaparin 40 mg/0.4 mL 40 mg (0.4 mL) SUBCUT Q24H 42 Days 07/29/21 subcutaneous syringe #16.8 ml oxycodone 5 mg tablet 5 mg PO Q4H PRN 7 Days #42 tab 07/29/21 doxycycline hyclate 100 mg tablet 100 mg PO Q12H 42 Days #84 tab 08/09/21 zinc oxide 20 % topical ointment 1 appl TOPICAL DAILY PRN #28 g 08/09/21 Allergies Allergy/AdvReac Type Severity Reaction Status Date / Time [place] nut Allergy Unknown Verified 08/26/21 14:31 lactose Allergy Diarrhea Verified 08/26/21 14:31 Review of Systems Review of Systems: Yes all other systems are reviewed and are negative PMFSH Past Medical History Medical History Balance disorder Closed dislocation of right hip Closed hip fracture Dementia Dementia Dislocation, hip closed Displaced fracture of right femoral neck Fever Hip dislocation, right History of pacemaker Hypothyroidism Hypothyroidism Increased urinary frequency Lactose intolerance Left leg weakness Leukocytosis (leucocytosis) Memory loss Normally functioning cardiac pacemaker present Pacemaker Pre-op evaluation Preoperative cardiovascular examination PTSD (post-traumatic stress disorder) Sinus arrest Sinus pause Symptomatic bradycardia Syncope Tobacco dependence Urinary incontinence Visit for wound check Surgical History History of hemiarthroplasty of right hip Hx of total hip arthroplasty No pertinent past surgical history Status post hip hemiarthroplasty Family History Family History Mother Unknown family medical history Father Unknown family medical history Social History Social History Household Members: Spouse Housing: Apartment Housing Other:: From [facility] Do you presently have visiting nurse or other home services: No Unable to assess alcohol history related to: Unknown Alcohol intake: current Alcohol intake frequency: does not drink Patient Tobacco Use Status: Current someday Tobacco user Tobacco use type: Cigarette Cigarette Packs Per Day: 0.25 Cigarettes Per Day: 5.0 Years Smoked: since teen years per pt e-Cigarette/Vaping Use: Never Used Second Hand Smoke Exposure: Yes Substance Use Type: Marijuana Advance Directives: Yes Advance Directives on File: Yes Advance Directives Date on File: 06/16/21 Patient : No service: No Current occupational status: disabled Current occupation: rt handed Physical Exam Vital Signs: Vital Signs: Last Vital Signs Temp 98 F 09/15/21 17:26 Pulse 102 H 09/15/21 17:26 Resp 18 09/15/21 17:26 BP 108/63 09/15/21 17:26 Pulse Ox 96 09/15/21 17:26 Body Mass Index 32.9 Appearance: Alert. Oriented X3. No acute distress. Slow to respond , dementia ++ Eyes: No pallor or icterus ENT: Pharynx normal. Oral Mucosa moist Neck: Normal inspection. Neck supple. CVS: Normal heart rate and rhythm. Pulses normal. Respiratory: No respiratory distress. Equal air entry bilateral, Abdomen: Soft and nontender. Bowel sounds are present, Skin: Skin warm and dry. Normal skin color. Normal skin turgor. Soft tissue swelling right hip at the site of incision no erythema no discharge no local warmth Extremities: No lower extremity edema. No calf tenderness Neuro: Oriented X 3. No motor deficit. MDM - Extremity Injury (Lower) MDM Narrative Medical decision making narrative: Patient's postop seroma of the right hip drain on 09/13 sent for questionable increasing swelling clinically patient does not have any infection at that site skin looks normal color no tense swelling no local warmth or redness WBC counts have improved lactic acid normal blood cultures were drawn and sent, case discussed orthopedic okay to send the patient back will follow-up as outpatient as scheduled Lab Data Attestation: I reviewed the patient's lab results. Result diagrams: 09/15/21 18:03 09/15/21 18:03 Labs: Lab Results 09/15/21 09/15/21 09/15/21 Range/Units 18:03 18: 18:03 WBC 10.9 H (4.8-10.8) X10*3/uL RBC 4.53 (4.20-5.50) X10*6/uL Hgb 12.4 (12.0-16.0) g/dl Hct 39.4 (37.0-47.0) % MCV 87.0 (80.0-98.0) fL MCH 27.4 (27.0-33.0) pg MCHC 31.5 (31.0-35.0) g/dl RDW 15.8 (11.0-16.0) % Plt Count 405 H (160-400) X10*3/uL MPV 9.9 (9.4-12.3) fL Immature Gran % (Auto) 0.7 H (0.0-0.4) % Neut % (Auto) 64.7 (45-73) % Lymph % (Auto) 25.9 (20-40) % Garza % (Auto) 5.9 (2-11) % Eos % (Auto) 2.2 (0-4) % Baso % (Auto) 0.6 (0-2) % Lymph # (Auto) 2.8 (1.2-4.9) X10*3/uL Garza # (Auto) 0.7 (0.1-1.2) X10*3/uL Eos # (Auto) 0.2 (0.0-0.4) X10*3/uL Baso # (Auto) 0.1 (0.0-0.2) X10*3/uL Abs Immat Gran (auto) 0.08 H (0.00-0.03) X10*3/uL Absolute Neuts (auto) 7.06 (2.0-8.3) x10*3/uL Absolute Nucleated RBC 0.000 (0.0-0.012) X10*3/uL Nucleated RBC % (auto) 0.0 (0.0-0.2) /100WBC Sodium 138 (135-145) mmol/L Potassium 3.8 (3.3-5.1) mmol/L Chloride 101 (96-108) mmol/L Carbon Dioxide 26 (22-29) mmol/L Anion Gap 15 (12-20) BUN 9 D (9-16) mg/dL Creatinine 0.65 (0.5-1.4) mg/dL Estim Creat Clear Calc 95.6 Estimated GFR > 60 Random Glucose 92 (60-115) mg/dL Lactic Acid 1.2 (0.5-2.0) mmol/L Calcium 9.3 D (8.4-10.2) mg/dL Discharge Plan Discharge Clinical Impression: Postprocedural seroma of skin and subcutaneous tissue following other procedure Patient Disposition: Xfer [facility] Transfer Details: to [facility] Instructions: Seroma (DC) Additional Instructions: Continue antibiotics and follow-up with orthopedics as scheduled No need for aspiration today Your blood counts are normal, no signs of infection Prescriptions: No Action nicotine 14 mg/24 hr patch 24 hour 1 patch topical DAILY RF: 0 acetaminophen 325 mg Tablet 325 mg PO Q4H PRN (Reason: Pain, Mild (Pain Scale 1-3)) 30 Days Qty: 240 RF: 0 enoxaparin 40 mg/0.4 mL Syringe 40 mg subcut Q24H 42 Days Qty: 16.8 RF: 0 docusate sodium 100 mg Capsule 100 mg PO BID 30 Days Qty: 60 RF: 0 oxycodone 5 mg tablet 5 mg PO Q4H PRN (Reason: pain) 7 Days Qty: 42 RF: 0 zinc oxide 20 % Ointment 1 appl topical DAILY PRN (Reason: Rash) Qty: 28 RF: 0 doxycycline hyclate 100 mg Tablet 100 mg PO Q12H 42 Days Qty: 84 RF: 0 cholecalciferol (vitamin D3) 25 mcg (1,000 unit) capsule 25 mcg PO DAILY Qty: 90 RF: 3 folic acid 1 mg tablet 1 mg PO DAILY Qty: 90 RF: 3 levothyroxine 75 mcg tablet 75 mcg PO DAILY Qty: 90 RF: 3
[2021-09-15 18:08] LABS: MANUAL DIFF FLAG NO
[2021-09-15 18:23] LABS: Lactic Acid 1.2 mmol/L (0.5-2.0)
[2021-09-15 18:24] LABS: Anion Gap 15 (12-20); Blood Urea Nitrogen 9 mg/dL (9-16); Calcium 9.3 mg/dL (8.4-10.2); Carbon Dioxide 26 mmol/L (22-29); Chloride 101 mmol/L (96-108); Creatinine Clr Calc Pharmacy 95.6; Estimated Glomerular Filt Rate > 60; Glucose Random 92 mg/dL (60-115); Potassium 3.8 mmol/L (3.3-5.1); Sodium 138 mmol/L (135-145)
[2021-09-15 18:26] LABS: Basophils Absolute Auto 0.1 X10*3/uL (0.0-0.2); Basophils Percent Auto 0.6 % (0-2); Eosinophils Absolute Auto 0.2 X10*3/uL (0.0-0.4); Eosinophils Percent Auto 2.2 % (0-4); Hematocrit 39.4 % (37.0-47.0); Hemoglobin 12.4 g/dl (12.0-16.0); Imm Gran Abs Auto 0.08 X10*3/uL (0.00-0.03); Imm Gran Pct Auto 0.7 % (0.0-0.4); Lymphocytes Absolute Auto 2.8 X10*3/uL (1.2-4.9); Lymphocytes Percent Auto 25.9 % (20-40); Mean Corpuscular HGB Conc 31.5 g/dl (31.0-35.0); Mean Corpuscular Hemoglobin 27.4 pg (27.0-33.0); Mean Platelet Volume 9.9 fL (9.4-12.3); Monocytes Absolute Auto 0.7 X10*3/uL (0.1-1.2); Monocytes Percent Auto 5.9 % (2-11); Neutrophils Absolute Auto 7.06 x10*3/uL (2.0-8.3); Neutrophils Percent Auto 64.7 % (45-73); Platelet Count 405 X10*3/uL (160-400); Red Blood Count 4.53 X10*6/uL (4.20-5.50); Red Cell Distribution Width 15.8 % (11.0-16.0); White Blood Count 10.9 X10*3/uL (4.8-10.8)
[2021-09-15 19:05] VITALS: BP 108/62; PULSE 102; RESP 16; TEMP 36.7; O2SAT 96
--- NOTE | 2021-09-15 19:30 | PC.NURSE ---
This RN to bedside. Pt aaox4, denies pain/discomfort. Pt requesting PO, provided with sandwich and soda per request. Pt's at bedside, is agreeable to plan for DC back to facility. Pt without concerns/complaints. Pt awaiting transport by ambulance back to facility.
--- NOTE | 2021-09-15 19:45 | PC.NURSE ---
This RN spoke with Nancy to give Nurse to Nurse report at [facility].
== END 2021-09-15 21:07 | disposition skilled nursing facility (03) ==
PROVIDERS: Emergency Provider Internal Medicine; PCP Internal Medicine
DX: L76.34 Postprocedural seroma of skin and subcutaneous tissue following other procedure (principal); Y83.8 Other surgical procedures as the cause of abnormal reaction of the patient, or of later complication, without mention of misadventure at the time of the procedure; Y92.9 Unspecified place or not applicable; Z96.641 Presence of right artificial hip joint
CPT/HCPCS: 36415; 80048; 83605; 85025; 87040; 99284

== ENCOUNTER → 2021-09-20 09:46 | Outpatient (BNVA) | payer OTHER, SELFPAY | PROVIDERS: Visit Provider Physician Assistant | DX: S71.001D Unspecified open wound, right hip, subsequent encounter (principal) | CPT/HCPCS: 99212 ==

== ENCOUNTER 2021-09-24 17:10 | Emergency (ER) | payer OTHER, SELFPAY ==
[2021-09-24 17:14] VITALS: BP 132/82; PULSE 90; O2SAT 99
[2021-09-24 17:22] VITALS: BP 108/61; BP 138/98; PULSE 104; PULSE 107; RESP 20; TEMP 36.5; O2SAT 95; O2SAT 96; BMI 26.2
--- NOTE | 2021-09-24 17:33 | ED_ITS ---
HPI - Skin/Abscess/Foreign Bdy General Chief complaint: Skin/Abscess/Foreign Body Stated complaint: rt hip wound pain Time Seen by Provider: 09/24/21 17:33 Source: EMS, RN notes reviewed and old records reviewed Mode of arrival: EMS History of Present Illness HPI narrative: Patient 56 years old history of dementia came from assisted for increased swelling and soft tissue bubble formation draining serosanguineous fluid at the site of right hip replacement surgical scar patient had a right hemiarthroplasty 06/02 status post infection with MRSA has been seen by Orthopedics and surgically clean and drained last time was seen on 09/20. No signs of infection anymore. Patient is already on doxycycline. No fever no chills no nausea vomiting no increased pain Related Data Home Medications Medication Instructions Recorded Confirmed nicotine 14 mg/24 hr daily 1 patch TOPICAL DAILY 07/23/21 07/23/21 transdermal patch Previous Rx's Medication Instructions Recorded cholecalciferol (vitamin D3) 25 25 mcg PO DAILY #90 cap 12/30/20 mcg (1,000 unit) capsule folic acid 1 mg tablet 1 mg PO DAILY #90 tab 12/30/20 levothyroxine 75 mcg tablet 75 mcg PO DAILY #90 tab 12/30/20 acetaminophen 325 mg tablet 325 mg PO Q4H PRN 30 Days #240 tab 07/29/21 docusate sodium 100 mg capsule 100 mg PO BID 30 Days #60 cap 07/29/21 enoxaparin 40 mg/0.4 mL 40 mg (0.4 mL) SUBCUT Q24H 42 Days 07/29/21 subcutaneous syringe #16.8 ml oxycodone 5 mg tablet 5 mg PO Q4H PRN 7 Days #42 tab 07/29/21 doxycycline hyclate 100 mg tablet 100 mg PO Q12H 42 Days #84 tab 08/09/21 zinc oxide 20 % topical ointment 1 appl TOPICAL DAILY PRN #28 g 08/09/21 Allergies Allergy/AdvReac Type Severity Reaction Status Date / Time [place] nut Allergy Unknown Verified 08/26/21 14:31 lactose Allergy Diarrhea Verified 08/26/21 14:31 Review of Systems Review of Systems: Yes all other systems are reviewed and are negative PMFSH Past Medical History Medical History Balance disorder Closed dislocation of right hip Closed hip fracture Dementia Dementia Dislocation, hip closed Displaced fracture of right femoral neck Fever Hip dislocation, right History of pacemaker Hypothyroidism Hypothyroidism Increased urinary frequency Lactose intolerance Left leg weakness Leukocytosis (leucocytosis) Memory loss Normally functioning cardiac pacemaker present Pacemaker Pre-op evaluation Preoperative cardiovascular examination PTSD (post-traumatic stress disorder) Sinus arrest Sinus pause Symptomatic bradycardia Syncope Tobacco dependence Urinary incontinence Visit for wound check Surgical History History of hemiarthroplasty of right hip Hx of total hip arthroplasty No pertinent past surgical history Status post hip hemiarthroplasty Family History Family History Mother Unknown family medical history Father Unknown family medical history Social History Social History Household Members: Spouse Housing: Apartment Housing Other:: From [facility] Do you presently have visiting nurse or other home services: No Unable to assess alcohol history related to: Unknown Alcohol intake: current Alcohol intake frequency: does not drink Patient Tobacco Use Status: Current someday Tobacco user Tobacco use type: Cigarette Cigarette Packs Per Day: 0.25 Cigarettes Per Day: 5.0 Years Smoked: since teen years per pt e-Cigarette/Vaping Use: Never Used Second Hand Smoke Exposure: Yes Substance Use Type: Marijuana Advance Directives Date on File: 06/16/21 service: No Current occupational status: disabled Current occupation: rt handed Physical Exam Vital Signs: Vital Signs: Last Vital Signs Temp 98.1 F 09/24/21 21:10 Pulse 96 09/24/21 23:34 Resp 16 09/24/21 23:34 BP 119/58 L 09/24/21 23:34 Pulse Ox 95 09/24/21 23:34 Body Mass Index 26.2 Appearance: Alert. Oriented X2. No acute distress. Eyes: PERRLA, No Nystagmus ENT: Pharynx normal. Oral Mucosa moist Neck: Normal inspection. Neck supple. CVS: Normal heart rate and rhythm. Pulses normal. Respiratory: No respiratory distress. Equal air entry bilateral, no wheezing/rales/rhonchi Abdomen: Soft and nontender. Bowel sounds are present, no mass palpable, no CVA tenderness Skin: Skin warm and dry. Normal skin color. Normal skin turgor. Extremities: No lower extremity edema. No calf tenderness. Right hip 3 x 2 cm soft tissue bullea with serosanguineous fluid discharge Neuro: Oriented X 2. No motor deficit. MDM - Skin/Abscess/Foreign Bdy MDM Narrative Medical decision making narrative: Patient with bullous formation at the site of surgical scar with serosanguineous fluid seroma fluid collection needle aspiration was done and surrounding tissue squeezing drained about 10 cc of fluid which was sent for culture. Case discussed with orthopedics no need to change the management patient to be followed up as outpatient local care as advised. Will check CBC and chemistry Lab Data Attestation: I reviewed the patient's lab results. Result diagrams: 09/24/21 17:50 09/24/21 17:50 Labs: Lab Results 09/24/21 09/24/21 Range/Units 17:50 17:50 WBC 12.1 H (4.8-10.8) X10*3/uL RBC 4.34 (4.20-5.50) X10*6/uL Hgb 11.7 L (12.0-16.0) g/dl Hct 37.1 (37.0-47.0) % MCV 85.5 (80.0-98.0) fL MCH 27.0 (27.0-33.0) pg MCHC 31.5 (31.0-35.0) g/dl RDW 15.6 (11.0-16.0) % Plt Count 354 (160-400) X10*3/uL MPV 9.9 (9.4-12.3) fL Immature Gran % (Auto) 0.9 H (0.0-0.4) % Neut % (Auto) 73.3 H (45-73) % Lymph % (Auto) 19.5 L (20-40) % Ogle % (Auto) 5.3 (2-11) % Eos % (Auto) 0.7 (0-4) % Baso % (Auto) 0.3 (0-2) % Lymph # (Auto) 2.4 (1.2-4.9) X10*3/uL Ogle # (Auto) 0.6 (0.1-1.2) X10*3/uL Eos # (Auto) 0.1 (0.0-0.4) X10*3/uL Baso # (Auto) 0.0 (0.0-0.2) X10*3/uL Abs Immat Gran (auto) 0.11 H (0.00-0.03) X10*3/uL Absolute Neuts (auto) 8.8 H (2.0-8.3) x10*3/uL Absolute Nucleated RBC 0.000 (0.0-0.012) X10*3/uL Nucleated RBC % (auto) 0.0 (0.0-0.2) /100WBC Sodium 136 (135-145) mmol/L Potassium 3.5 (3.3-5.1) mmol/L Chloride 100 (96-108) mmol/L Carbon Dioxide 28 (22-29) mmol/L Anion Gap 12 (12-20) BUN 8 L (9-16) mg/dL Creatinine 0.61 (0.5-1.4) mg/dL Estim Creat Clear Calc 91.1 Estimated GFR > 60 Random Glucose 143 H (60-115) mg/dL Calcium 9.2 (8.4-10.2) mg/dL Procedures Abscess I/D Site: lower extremity Side (if applicable): right Technique: needle aspiration Amount of fluid expressed (mL): 10 Sent for culture/gram staining?: Yes Irrigation: No Discharge Plan Discharge Clinical Impression: Postprocedural seroma of skin and subcutaneous tissue following other procedure Patient Disposition: Xfer [facility] Instructions: Seroma (DC) Additional Instructions: Local care as advised no signs of infection at this time apply dry dressing for the drainage No intervention needed at this time Follow-up with orthopedics Prescriptions: No Action nicotine 14 mg/24 hr patch 24 hour 1 patch topical DAILY RF: 0 acetaminophen 325 mg Tablet 325 mg PO Q4H PRN (Reason: Pain, Mild (Pain Scale 1-3)) 30 Days Qty: 240 RF: 0 enoxaparin 40 mg/0.4 mL Syringe 40 mg subcut Q24H 42 Days Qty: 16.8 RF: 0 docusate sodium 100 mg Capsule 100 mg PO BID 30 Days Qty: 60 RF: 0 oxycodone 5 mg tablet 5 mg PO Q4H PRN (Reason: pain) 7 Days Qty: 42 RF: 0 zinc oxide 20 % Ointment 1 appl topical DAILY PRN (Reason: Rash) Qty: 28 RF: 0 doxycycline hyclate 100 mg Tablet 100 mg PO Q12H 42 Days Qty: 84 RF: 0 cholecalciferol (vitamin D3) 25 mcg (1,000 unit) capsule 25 mcg PO DAILY Qty: 90 RF: 3 folic acid 1 mg tablet 1 mg PO DAILY Qty: 90 RF: 3 levothyroxine 75 mcg tablet 75 mcg PO DAILY Qty: 90 RF: 3 Discharge Date/Time: 09/24/21 23:44
[2021-09-24 17:54] LABS: MANUAL DIFF FLAG NO
[2021-09-24 18:04] LABS: Basophils Percent Auto 0.3 % (0-2); Eosinophils Absolute Auto 0.1 X10*3/uL (0.0-0.4); Eosinophils Percent Auto 0.7 % (0-4); Hematocrit 37.1 % (37.0-47.0); Hemoglobin 11.7 g/dl (12.0-16.0); Imm Gran Abs Auto 0.11 X10*3/uL (0.00-0.03); Imm Gran Pct Auto 0.9 % (0.0-0.4); Lymphocytes Absolute Auto 2.4 X10*3/uL (1.2-4.9); Lymphocytes Percent Auto 19.5 % (20-40); Mean Corpuscular HGB Conc 31.5 g/dl (31.0-35.0); Mean Corpuscular Volume 85.5 fL (80.0-98.0); Mean Platelet Volume 9.9 fL (9.4-12.3); Monocytes Absolute Auto 0.6 X10*3/uL (0.1-1.2); Monocytes Percent Auto 5.3 % (2-11); Neutrophils Absolute Auto 8.8 x10*3/uL (2.0-8.3); Neutrophils Percent Auto 73.3 % (45-73); Platelet Count 354 X10*3/uL (160-400); Red Blood Count 4.34 X10*6/uL (4.20-5.50); Red Cell Distribution Width 15.6 % (11.0-16.0); White Blood Count 12.1 X10*3/uL (4.8-10.8)
[2021-09-24 18:11] LABS: Anion Gap 12 (12-20); Blood Urea Nitrogen 8 mg/dL (9-16); Calcium 9.2 mg/dL (8.4-10.2); Carbon Dioxide 28 mmol/L (22-29); Chloride 100 mmol/L (96-108); Creatinine Clr Calc Pharmacy 91.1; Estimated Glomerular Filt Rate > 60; Glucose Random 143 mg/dL (60-115); Potassium 3.5 mmol/L (3.3-5.1); Sodium 136 mmol/L (135-145)
[2021-09-24 19:23] VITALS: BP 117/62; PULSE 100; RESP 18; TEMP 36.5; O2SAT 97
--- NOTE | 2021-09-24 19:26 | PC.NURSE ---
pt a&o, no sob or chest pain. plan is for pt to be discharge home and follow care plan. Will review and educated with patient and significant other.
[2021-09-24 21:10] VITALS: BP 112/61; PULSE 105; RESP 16; TEMP 36.7; O2SAT 97
--- NOTE | 2021-09-24 21:12 | PC.NURSE ---
patient was put on bed cho by this pct ,patient voided large amount
[2021-09-24 23:34] VITALS: BP 119/58; PULSE 96; RESP 16; O2SAT 95
--- NOTE | 2021-09-24 23:43 | PC.NURSE ---
Report called to Liz briseno pt being transferred by back at this time. reviewed discharge instructions.
== END 2021-09-24 23:44 ==
PROVIDERS: Emergency Provider Internal Medicine; PCP Internal Medicine
DX: L76.34 Postprocedural seroma of skin and subcutaneous tissue following other procedure (principal); Y83.4 Other reconstructive surgery as the cause of abnormal reaction of the patient, or of later complication, without mention of misadventure at the time of the procedure; Y92.9 Unspecified place or not applicable
CPT/HCPCS: 10140; 36415; 80048; 85025; 87071; 87205; 99283; 99284

== ENCOUNTER → 2021-10-11 09:05 | Outpatient (BNVA) | payer OTHER, SELFPAY | PROVIDERS: Visit Provider Physician Assistant | DX: T79.2XXA Traumatic secondary and recurrent hemorrhage and seroma, initial encounter (principal); T84.020D Dislocation of internal right hip prosthesis, subsequent encounter; F03.90 Unspecified dementia, unspecified severity, without behavioral disturbance, psychotic disturbance, mood disturbance, and anxiety; Z91.011 Allergy to milk products; Z91.018 Allergy to other foods; Z96.641 Presence of right artificial hip joint | CPT/HCPCS: 99212 ==

== ENCOUNTER → 2021-12-13 13:02 | Outpatient (BNVA) | payer OTHER, SELFPAY | PROVIDERS: Visit Provider Physician Assistant | DX: T81.31XD Disruption of external operation (surgical) wound, not elsewhere classified, subsequent encounter (principal); T79.2XXA Traumatic secondary and recurrent hemorrhage and seroma, initial encounter | CPT/HCPCS: 99212 ==

== ENCOUNTER 2021-12-15 10:49 | Outpatient (REF) | payer OTHER, SELFPAY | END 2021-12-15 10:50 | disposition home or self-care (01) | LOC: HO.MRI 10:49 | PROVIDERS: PCP Internal Medicine; Visit Provider Internal Medicine | DX: Z13.89 Encounter for screening for other disorder (principal) ==

== ENCOUNTER → 2022-01-12 10:32 | Outpatient (BNVA) | payer OTHER, SELFPAY | PROVIDERS: PCP Internal Medicine; Visit Provider Surgery | DX: T81.89XA Other complications of procedures, not elsewhere classified, initial encounter (principal) | CPT/HCPCS: 99202 ==

== ENCOUNTER 2022-01-24 08:12 | Outpatient (REF) | payer OTHER, SELFPAY ==
--- NOTE | ~2022-01-24 | XR_ITS ---
EXAMINATION: XR PELVIS CLINICAL INFORMATION: Hip pain COMPARISON: Bilateral hip radiographs 07/23/2021. TECHNIQUE: The pelvis is imaged in 3 views. FINDINGS: The right hip prosthesis is no longer present. The proximal right femur is retracted superiorly and has pseudoarticulation with the lateral pelvis just above the superior acetabular rim. There are extensive productive bony spurring and heterotopic bone involving the proximal femur and possibly the lateral pelvis. The SI joints, pubis, and left hip are unremarkable. There is an IUD again seen in the central pelvis. Bowel gas unremarkable. XR/XR pelvis 1-2V IMPRESSION: 1. Right hip prosthesis is no longer present. Right femur retracted superiorly with pseudoarticulation and heterotopic bone and spurring. 2. Left hip unremarkable.
== END 2022-01-24 08:13 | disposition home or self-care (01) ==
LOC: HO.HOSX 08:12
PROVIDERS: Visit Provider Orthopaedic Surgery
DX: S71.001D Unspecified open wound, right hip, subsequent encounter (principal); F17.210 Nicotine dependence, cigarettes, uncomplicated; X58.XXXD Exposure to other specified factors, subsequent encounter; Z98.890 Other specified postprocedural states
CPT/HCPCS: 72170; 99212

== ENCOUNTER → 2022-02-14 11:06 | Outpatient (BNVA) | payer OTHER, SELFPAY | PROVIDERS: Visit Provider Internal Medicine | DX: T81.89XD Other complications of procedures, not elsewhere classified, subsequent encounter (principal) | CPT/HCPCS: 99212 ==

== ENCOUNTER → 2022-03-07 12:00 | Outpatient (BNVA) | payer OTHER, SELFPAY | PROVIDERS: PCP Internal Medicine; Visit Provider Orthopaedic Surgery | DX: Z48.00 Encounter for change or removal of nonsurgical wound dressing (principal); M62.461 Contracture of muscle, right lower leg; M62.462 Contracture of muscle, left lower leg; Z98.890 Other specified postprocedural states | CPT/HCPCS: 99212 ==

== ENCOUNTER 2022-04-08 12:56 | Emergency (ER) | payer OTHER, SELFPAY ==
--- NOTE | ~2022-04-08 | CT_ITS ---
EXAMINATION: CT HIP WITHOUT CONTRAST, RIGHT CLINICAL INFORMATION: Wound drainage COMPARISON: Multiple prior examinations including pelvic x-ray January 2022 TECHNIQUE: CT scan of the right hip was performed without contrast reconstruction imaging performed at the acquisition workstation This CT examination was performed using dose optimization techniques as appropriate, variously including the following: *Automated exposure control *Adjustment of mA and/or kV according to patient size (this includes techniques or standardized protocols for targeted exams where dose is matched to indication/reason for exam; i.e. extremities or head) *Use of iterative reconstruction technique DLP: 271 mGy-cm FINDINGS: Findings in the right hip region redemonstrated as seen previously in January 2022 x-ray. The previously noted hip arthroplasty removed. The proximal femur is displaced laterally and proximally. There is prominent heterotopic ossification within the muscles surrounding the proximal end of the femur. Some of the heterotopic ossification is attached to both the acetabulum and femur respectively. There is a joint effusion. There appears to be extension of the joint fluid through a sinus tract extending from the proximal femur to the skin. There is dimpling of the skin in the area of sinus tract extension. This suspected sinus tract knee may be extending along the prior surgical tract. Irregularity of the surface of the skin soft tissues raise the question of an ulceration at the skin surface. This measures approximately 2.5 cm transverse and extends 0.8 cm deep. This apparent sinus tract measures up to 7 cm transverse 2 cm AP and at least 11 cm craniocaudal. The proximal extent of this abnormality is included in the [id number] the examination. Additional findings: Calcific atherosclerotic changes noted. Intrauterine device noted. CT/CT hip RT wo con IMPRESSION: Postsurgical changes status post removal of prior hip arthroplasty and surrounding heterotopic ossification similar to that noted on prior x-ray January 2022. There is a joint effusion and what appears to be a communicating sinus tract extending out through the subcutaneous soft tissues to the level of the skin where there is likely an ulceration.. Apparent sinus tract may extend along a prior surgical tract. This is concerning for joint sepsis with resultant joint drainage along the suspected sinus tract.
[2022-04-08 13:04] VITALS: BP 112/70; PULSE 76
--- NOTE | 2022-04-08 13:07 | ED.SKABFB ---
HPI - Skin/Abscess/Foreign Bdy General Chief complaint: General Medical Stated complaint: HIP WOUND S/P SURGERY,? INFECTION PER EMS Time Seen by Provider: 04/08/22 12:58 Source: patient and old records reviewed Mode of arrival: EMS Limitations: other (poor historian) History of Present Illness HPI narrative: hx of prior hip surgery 1+ years ago recurrent issue in the past with infections has been off antibiotics, spouse notes they use a dion lift at home and he is wondering if this caused irritation. he noted yellowish drainage and redness/pain from that site. 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) Associated symptoms: denies other symptoms Treatments prior to arrival: bandages and attempted to drain pus at home Related Data Home Medications Medication Instructions Recorded Confirmed nicotine 14 mg/24 hr daily 1 patch TOPICAL DAILY 07/23/21 02/21/22 transdermal patch acetaminophen 500 mg tablet 1,000 mg PO Q4H PRN tab 02/21/22 02/21/22 (Tylenol Extra Strength) gabapentin 100 mg capsule 200 mg PO BEDTIME cap 02/21/22 02/21/22 Previous Rx's Medication Instructions Recorded zinc oxide 20 % topical ointment 1 appl TOPICAL DAILY PRN #28 g 08/09/21 baclofen 10 mg tablet 10 mg PO DAILY #90 tab 02/21/22 cholecalciferol (vitamin D3) 25 25 mcg PO DAILY #90 cap 02/21/22 mcg (1,000 unit) capsule docusate sodium 100 mg capsule 100 mg PO BID 90 Days #180 cap 02/21/22 escitalopram oxalate 10 mg tablet 10 mg PO DAILY #90 tab 02/21/22 folic acid 1 mg tablet 1 mg PO DAILY #90 tab 02/21/22 hydrocolloid dressing 8 X 12 #5 ea 02/21/22 (DuoDERM CGF Dressing) levothyroxine 88 mcg tablet 88 mcg PO DAILY #90 tab 02/21/22 nicotine 21 mg/24 hr daily 1 patch TRANSDERMAL DAILY #28 ea 02/21/22 transdermal patch doxycycline hyclate 100 mg capsule 100 mg PO BID 14 Days #28 cap 04/08/22 Allergies Allergy/AdvReac Type Severity Reaction Status Date / Time [place] nut Allergy Unknown Verified 03/07/22 12:02 lactose Allergy Diarrhea Verified 03/07/22 12:02 Review of Systems Review of Systems: ROS unable to be obtained due to underlying dementia [facility] Past Medical History Source: old records reviewed Medical History Abnormal EKG Balance disorder Closed dislocation of right hip Closed hip fracture Dementia Dementia Dislocation, hip closed Displaced fracture of right femoral neck Fever Hip dislocation, right History of pacemaker Hypothyroidism Lactose intolerance Left leg weakness Leukocytosis (leucocytosis) Memory loss Osteomyelitis of right hip Pacemaker Pre-op evaluation Preoperative cardiovascular examination PTSD (post-traumatic stress disorder) Sinus pause Symptomatic bradycardia Syncope Tobacco dependence Urinary incontinence Visit for wound check Surgical History History of hemiarthroplasty of right hip Hx of total hip arthroplasty No pertinent past surgical history Status post hip hemiarthroplasty Family History Family History Mother Unknown family medical history Father Unknown family medical history Social History Social History Household Members: Spouse Housing: Apartment Housing [facility]:: [facility] Do you presently have visiting nurse or other home services: No Unable to assess alcohol history related to: Unknown Alcohol intake: current Alcohol intake frequency: does not drink Patient Tobacco Use Status: Current someday Tobacco user Tobacco use type: Cigarette Cigarette Packs Per Day: 0.25 Cigarettes Per Day: 5.0 Years Smoked: since teen years per pt e-Cigarette/Vaping Use: Never Used Second Hand Smoke Exposure: Yes Substance Use Type: Marijuana Advance Directives: Yes Advance Directives on File: Yes Advance Directives Date on File: 06/16/21 service: No Current occupational status: disabled Current occupation: rt handed Physical Exam Vital Signs: Vital Signs: Last Vital Signs Temp 98.5 F 04/08/22 13:11 Pulse 88 04/08/22 13:11 Resp 16 04/08/22 13:11 BP 100/56 L 04/08/22 13:11 Pulse Ox 94 04/08/22 13:11 BMI result Body Mass Index 23.4 Appearance: Alert. One word answers confused, at baseline. No acute distress. Eyes: Pupils equal, round and reactive to light. ENT: Pharynx normal. Neck: Normal inspection. Neck supple. CVS: Normal heart rate and rhythm. Pulses normal. Respiratory: No respiratory distress. Breath sounds normal. Abdomen: Soft and non-tender. Skin: Skin warm and dry. pale skin color. Normal skin turgor. Extremities: No lower extremity edema. R hip old incision area is soft mild erythema mild drainage noted from the wound yellow/ss drainage, she does say ow when palpated. Neuro: Cannot participate, contracted, says yes or no Course Course Course Narrative: orthopedics to see patient in clinic next week per DEE Dorman mildly elevated WBC count, neg lactic acid given vancomycin and zosyn orthopedics aware and will see patient in office next week results of CT scan reviewed spouse does not want patient to stay in hospital aware of results wants her to go home with oral antibiotics - plan for doxy MDM - Skin/Abscess/Foreign Bdy MDM Narrative Medical decision making narrative: 57 yo female with hx of dementia, PPM, hypothyroidism, chronic wounds and pressure ulcer, MRSA, SSS s/p PPM, chronic intermittent R hip wound with hx of MRSA here with c/o R hip area redness and drainage. At this time will need labs, CT scan to check for collection of fluids - empiric IV vancomycin and zosyn. If labs wnl and no sig pocket of fluid or derangement anticipate DC home with PO doxy as spouse seems very interested in the patient coming home. Lab Data Result diagrams: 04/08/22 13:45 04/08/22 13:45 Labs: Lab Results 04/08/22 04/08/22 04/08/22 Range/Units 13:45 13:45 13:45 WBC 12.1 H (4.8-10.8) X10*3/uL RBC 4.43 (4.20-5.50) X10*6/uL Hgb 10.6 L (12.0-16.0) g/dl Hct 34.8 L (37.0-47.0) % MCV 78.6 L (80.0-98.0) fL MCH 23.9 L (27.0-33.0) pg MCHC 30.5 L (31.0-35.0) g/dl RDW 18.5 H (11.0-16.0) % Plt Count 554 H D (160-400) X10*3/uL MPV 9.1 L (9.4-12.3) fL Immature Gran % (Auto) 0.5 H (0.0-0.4) % Neut % (Auto) 71.3 (45-73) % Lymph % (Auto) 22.1 (20-40) % Divide % (Auto) 4.5 (2-11) % Eos % (Auto) 1.2 (0-4) % Baso % (Auto) 0.4 (0-2) % Lymph # (Auto) 2.7 (1.2-4.9) X10*3/uL Divide # (Auto) 0.5 (0.1-1.2) X10*3/uL Eos # (Auto) 0.2 (0.0-0.4) X10*3/uL Baso # (Auto) 0.1 (0.0-0.2) X10*3/uL Abs Immat Gran (auto) 0.06 H (0.00-0.03) X10*3/uL Absolute Neuts (auto) 8.6 H (2.0-8.3) x10*3/uL Absolute Nucleated RBC 0.000 (0.0-0.012) X10*3/uL Nucleated RBC % (auto) 0.0 (0.0-0.2) /100WBC ESR 69 H (0-20) MM/HR Sodium 140 (135-145) mmol/L Potassium 3.6 (3.3-5.1) mmol/L Chloride 104 (96-108) mmol/L Carbon Dioxide 27 (22-29) mmol/L Anion Gap 13 (12-20) BUN 10 (9-16) mg/dL Creatinine 0.53 (0.5-1.4) mg/dL Estim Creat Clear Calc 92.6 Estimated GFR > 60 Random Glucose 84 (60-115) mg/dL Lactic Acid (0.5-2.0) mmol/L Calcium 9.3 (8.4-10.2) mg/dL Total Bilirubin 0.3 (0.0-1.0) mg/dL Direct Bilirubin 0.2 (0.0-0.5) mg/dL AST 10 (5-31) U/L ALT < 6 (0-31) U/L Alkaline Phosphatase 173 H D (39-117) U/L C-Reactive Protein 3.79 H (< or = 0.50) mg/dL Total Protein 6.9 (6.5-8.0) g/dL Albumin 3.4 L (3.5-5.0) g/dL 04/08/22 Range/Units 13:46 WBC (4.8-10.8) X10*3/uL RBC (4.20-5.50) X10*6/uL Hgb (12.0-16.0) g/dl Hct (37.0-47.0) % MCV (80.0-98.0) fL MCH (27.0-33.0) pg MCHC (31.0-35.0) g/dl RDW (11.0-16.0) % Plt Count (160-400) X10*3/uL MPV (9.4-12.3) fL Immature Gran % (Auto) (0.0-0.4) % Neut % (Auto) (45-73) % Lymph % (Auto) (20-40) % Divide % (Auto) (2-11) % Eos % (Auto) (0-4) % Baso % (Auto) (0-2) % Lymph # (Auto) (1.2-4.9) X10*3/uL Divide # (Auto) (0.1-1.2) X10*3/uL Eos # (Auto) (0.0-0.4) X10*3/uL Baso # (Auto) (0.0-0.2) X10*3/uL Abs Immat Gran (auto) (0.00-0.03) X10*3/uL Absolute Neuts (auto) (2.0-8.3) x10*3/uL Absolute Nucleated RBC (0.0-0.012) X10*3/uL Nucleated RBC % (auto) (0.0-0.2) /100WBC ESR (0-20) MM/HR Sodium (135-145) mmol/L Potassium (3.3-5.1) mmol/L Chloride (96-108) mmol/L Carbon Dioxide (22-29) mmol/L Anion Gap (12-20) BUN (9-16) mg/dL Creatinine (0.5-1.4) mg/dL Estim Creat Clear Calc Estimated GFR Random Glucose (60-115) mg/dL Lactic Acid 1.1 (0.5-2.0) mmol/L Calcium (8.4-10.2) mg/dL Total Bilirubin (0.0-1.0) mg/dL Direct Bilirubin (0.0-0.5) mg/dL AST (5-31) U/L ALT (0-31) U/L Alkaline Phosphatase (39-117) U/L C-Reactive Protein (< or = 0.50) mg/dL Total Protein (6.5-8.0) g/dL Albumin (3.5-5.0) g/dL Discharge Plan Discharge Clinical Impression: Cellulitis Qualifiers: Site of cellulitis: extremity Site of cellulitis of extremity: lower extremity Laterality: right Qualified Code(s): L03.115 - Cellulitis of right lower limb Patient Disposition: Home, Self-Care Instructions: Cellulitis (ED) Additional Instructions: return to ED for any worsening symptoms or concerns monitor for increased redness, yellow drainage, fevers, vomiting, cannot take medications call orthopedics office Monday for appointment next week Prescriptions: New doxycycline hyclate 100 mg capsule 100 mg PO BID 14 Days Qty: 28 0RF No Action nicotine 14 mg/24 hr patch 24 hour 1 patch topical DAILY 0RF zinc oxide 20 % Ointment 1 appl topical DAILY PRN (Reason: Rash) Qty: 28 0RF Protocol: Apply to: Apply to: buttock wounds - surrounding open wound and over erythema skin changes acetaminophen [Tylenol Extra Strength] 500 mg tablet 1,000 mg PO Q4H PRN0RF nicotine 21 mg/24 hr patch 24 hour 1 patch transdermal DAILY Qty: 28 4RF (DME) DuoDERM CGF Dressing 8 X 12 bandage See Rx Instructions .Route Qty: 5 0RF Rx Instructions: As directed gabapentin 100 mg capsule 200 mg PO BEDTIME 0RF folic acid 1 mg tablet 1 mg PO DAILY Qty: 90 3RF escitalopram oxalate 10 mg tablet 10 mg PO DAILY Qty: 90 3RF baclofen 10 mg tablet 10 mg PO DAILY Qty: 90 3RF cholecalciferol (vitamin D3) 25 mcg (1,000 unit) capsule 25 mcg PO DAILY Qty: 90 3RF docusate sodium 100 mg capsule 100 mg PO BID 90 Days Qty: 180 2RF levothyroxine 88 mcg tablet 88 mcg PO DAILY Qty: 90 3RF
[2022-04-08 13:11] VITALS: BP 100/56; PULSE 88; RESP 16; TEMP 36.9; O2SAT 94; BMI 23.4
[2022-04-08 13:57] LABS: MANUAL DIFF FLAG NO
[2022-04-08 13:59] LABS: Basophils Absolute Auto 0.1 X10*3/uL (0.0-0.2); Basophils Percent Auto 0.4 % (0-2); Eosinophils Absolute Auto 0.2 X10*3/uL (0.0-0.4); Eosinophils Percent Auto 1.2 % (0-4); Hematocrit 34.8 % (37.0-47.0); Hemoglobin 10.6 g/dl (12.0-16.0); Imm Gran Abs Auto 0.06 X10*3/uL (0.00-0.03); Imm Gran Pct Auto 0.5 % (0.0-0.4); Lymphocytes Absolute Auto 2.7 X10*3/uL (1.2-4.9); Lymphocytes Percent Auto 22.1 % (20-40); Mean Corpuscular HGB Conc 30.5 g/dl (31.0-35.0); Mean Corpuscular Hemoglobin 23.9 pg (27.0-33.0); Mean Corpuscular Volume 78.6 fL (80.0-98.0); Mean Platelet Volume 9.1 fL (9.4-12.3); Monocytes Absolute Auto 0.5 X10*3/uL (0.1-1.2); Monocytes Percent Auto 4.5 % (2-11); Neutrophils Absolute Auto 8.6 x10*3/uL (2.0-8.3); Neutrophils Percent Auto 71.3 % (45-73); Platelet Count 554 X10*3/uL (160-400); Red Blood Count 4.43 X10*6/uL (4.20-5.50); Red Cell Distribution Width 18.5 % (11.0-16.0); White Blood Count 12.1 X10*3/uL (4.8-10.8)
[2022-04-08 14:12] LABS: Alanine Aminotransferase < 6 U/L (0-31); Albumin Level 3.4 g/dL (3.5-5.0); Alkaline Phosphatase 173 U/L (39-117); Anion Gap 13 (12-20); Aspartate Amino Transferase 10 U/L (5-31); Bilirubin Direct 0.2 mg/dL (0.0-0.5); Bilirubin Total 0.3 mg/dL (0.0-1.0); Blood Urea Nitrogen 10 mg/dL (9-16); C Reactive Protein 3.79 mg/dL (< or = 0.50); Calcium 9.3 mg/dL (8.4-10.2); Carbon Dioxide 27 mmol/L (22-29); Chloride 104 mmol/L (96-108); Creatinine Clr Calc Pharmacy 92.6; Estimated Glomerular Filt Rate > 60; Glucose Random 84 mg/dL (60-115); Potassium 3.6 mmol/L (3.3-5.1); Sodium 140 mmol/L (135-145); Total Protein 6.9 g/dL (6.5-8.0)
[2022-04-08 14:15] LABS: Lactic Acid 1.1 mmol/L (0.5-2.0)
[2022-04-08] MEDS: Piperacillin Sodium/Tazobactam 3.375 GM in 0.9 % Sodium Chloride 50 ML IV (14:20)
[2022-04-08 14:48] LABS: Erythrocyte Sedimentation Rate 69 MM/HR (0-20)
[2022-04-08 15:15] VITALS: BP 97/55; PULSE 88; RESP 18; O2SAT 93
[2022-04-08] MEDS: vancomycin HCL 1,250 MG in 0.9 % Sodium Chloride 250 ML 166.67 MG IV (15:20)
--- NOTE | 2022-04-08 15:24 | PC.NURSE ---
medicated per provider order. at bedside, primary clinical care leader w nurses at home. pt is not interested in admission.
== END 2022-04-08 18:42 | disposition home or self-care (01) ==
PROVIDERS: Emergency Provider Emergency Medicine; PCP Internal Medicine
DX: L03.115 Cellulitis of right lower limb (principal); B95.7 Other staphylococcus as the cause of diseases classified elsewhere; F03.90 Unspecified dementia, unspecified severity, without behavioral disturbance, psychotic disturbance, mood disturbance, and anxiety; F17.200 Nicotine dependence, unspecified, uncomplicated; Z86.14 Personal history of Methicillin resistant Staphylococcus aureus infection; Z95.0 Presence of cardiac pacemaker
CPT/HCPCS: 36415; 73700; 80048; 80076; 83605; 85025; 85652; 86140; 87040; 87077; 87147; 87186; 87205; 96365; 96368; 99282; 99283; 99284; J2543; J3370

== ENCOUNTER 2022-04-13 11:55 | Emergency (ER) | payer OTHER, SELFPAY ==
[2022-04-13 12:02] VITALS: BP 107/60; PULSE 95; O2SAT 97; BMI 35.2
[2022-04-13 12:14] VITALS: BP 126/68; PULSE 82; RESP 18; TEMP 36.7; O2SAT 94
--- NOTE | 2022-04-13 12:28 | ED_ITS ---
HPI - Skin/Abscess/Foreign Bdy General Chief complaint: Skin/Abscess/Foreign Body Stated complaint: R HIP WOUND INF PER EMS Time Seen by Provider: 04/13/22 12:01 Source: family and old records reviewed Limitations: altered mental status History of Present Illness HPI narrative: Patient has a long history of right hip infections post opt hip replacement followed by hardware removal. She has other history significant for severe dementia. She is cared for at home by her . Recently her right hip became red and inflamed. She was seen in this emergency department 4 days ago. Blood cultures at the time were drawn. They now show Staph hominis which is resistant to doxycycline which she was prescribed. It is sensitive, however, Levaquin and penicillin She has no antibiotic allergies. She has not had any fevers or chills. Since that time the area has drained and her has been doing wound care. Related Data Home Medications Medication Instructions Recorded Confirmed nicotine 14 mg/24 hr daily 1 patch TOPICAL DAILY 07/23/21 02/21/22 transdermal patch acetaminophen 500 mg tablet 1,000 mg PO Q4H PRN tab 02/21/22 02/21/22 (Tylenol Extra Strength) gabapentin 100 mg capsule 200 mg PO BEDTIME cap 02/21/22 02/21/22 Previous Rx's Medication Instructions Recorded zinc oxide 20 % topical ointment 1 appl TOPICAL DAILY PRN #28 g 08/09/21 baclofen 10 mg tablet 10 mg PO DAILY #90 tab 02/21/22 cholecalciferol (vitamin D3) 25 25 mcg PO DAILY #90 cap 02/21/22 mcg (1,000 unit) capsule docusate sodium 100 mg capsule 100 mg PO BID 90 Days #180 cap 02/21/22 escitalopram oxalate 10 mg tablet 10 mg PO DAILY #90 tab 02/21/22 folic acid 1 mg tablet 1 mg PO DAILY #90 tab 02/21/22 hydrocolloid dressing 8 X 12 #5 ea 02/21/22 (DuoDERM CGF Dressing) levothyroxine 88 mcg tablet 88 mcg PO DAILY #90 tab 02/21/22 nicotine 21 mg/24 hr daily 1 patch TRANSDERMAL DAILY #28 ea 02/21/22 transdermal patch doxycycline hyclate 100 mg capsule 100 mg PO BID 14 Days #28 cap 04/08/22 adhesive tape #2 ea 04/13/22 adhesive tape ([employer]) #2 ea 04/13/22 adhesive tape ([employer]) #2 ea 04/13/22 gauze bandage 4 X 4 #1200 ea 04/13/22 gauze bandage 4 X 4 #1200 ea 04/13/22 gauze bandage 4 X 4 #1200 ea 04/13/22 levofloxacin 500 mg tablet 500 mg PO DAILY #14 tab 04/13/22 Allergies Allergy/AdvReac Type Severity Reaction Status Date / Time [place] nut Allergy Unknown Verified 03/07/22 12:02 lactose Allergy Diarrhea Verified 03/07/22 12:02 Review of Systems Constitutional: Comments: No fevers Respiratory: Comments: No respiratory distress Gastrointestinal: Comments: No vomiting Integumentary/Breasts: Comments: As discussed in [facility] Past Medical History Medical History Abnormal EKG Balance disorder Closed dislocation of right hip Closed hip fracture Dementia Dementia Dislocation, hip closed Displaced fracture of right femoral neck Fever Hip dislocation, right History of pacemaker Hypothyroidism Lactose intolerance Left leg weakness Leukocytosis (leucocytosis) Memory loss Osteomyelitis of right hip Pacemaker Pre-op evaluation Preoperative cardiovascular examination PTSD (post-traumatic stress disorder) Sinus pause Symptomatic bradycardia Syncope Tobacco dependence Urinary incontinence Visit for wound check Surgical History History of hemiarthroplasty of right hip Hx of total hip arthroplasty No pertinent past surgical history Status post hip hemiarthroplasty Family History Family History Mother Unknown family medical history Father Unknown family medical history Social History Social History Household Members: Spouse Housing: Apartment Housing Other:: From [facility] Do you presently have visiting nurse or other home services: No Unable to assess alcohol history related to: Unknown Alcohol intake: never Patient Tobacco Use Status: Current everyday Tobacco user Tobacco use type: Cigarette Cigarette Packs Per Day: 0.25 Cigarettes Per Day: 5.0 Years Smoked: since teen years per pt Smoked in Last 30 Days: Yes e-Cigarette/Vaping Use: Never Used Second Hand Smoke Exposure: Yes Use of substances other than those prescribed or required for medical reasons: No Substance Use Type: Marijuana Advance Directives: Yes Advance Directives on File: Yes Advance Directives Date on File: 06/16/21 Patient : No service: No Current occupational status: disabled Current occupation: rt handed Physical Exam Vital Signs: Vital Signs: Last Vital Signs Temp 98.1 F 04/13/22 12:14 Pulse 82 04/13/22 12:14 Resp 18 04/13/22 12:14 BP 126/68 04/13/22 12:14 Pulse Ox 94 04/13/22 12:14 BMI result Body Mass Index 35.2 Const: Other: Vital signs stable, afebrile. Patient with contractures. In no acute distress Resp: Other: No respiratory distress Skin: Other: Right hip with wound approximately 2 x 3 cm. Draining minimal purulent material at this time. Minimal surrounding erythema. No significant induration surrounding the wound. Neuro: Other: Apparently at baseline Course Course Course Narrative: Patient with positive blood cultures from 4 days ago showing resistance to her current we prescribed antibiotic. The patient herself has no signs of sepsis. At the time of blood culture draws, the wound is not draining. It is now draining well. I do not think she needs IV antibiotics given sensitivities to Levaquin. Will start her on Levaquin p.o. and discharge her to home. Follow-up with wound care as scheduled or sooner if possible Discharge Plan Discharge Clinical Impression: Wound disruption, post-op, skin, Bacteremia Patient Disposition: Home, Self-Care Instructions: Wound Dehiscence (ED), Bacteremia (ED) Additional Instructions: Stop taking doxycycline. Start taking Levaquin. Follow-up with wound care as scheduled or sooner if available. Return if worse, especially if fevers develop or wound looks worse. Prescriptions: New levofloxacin 500 mg tablet 500 mg PO DAILY Qty: 14 0RF (DME) gauze bandage 4 X 4 bandage See Rx Instructions .Route Qty: 1200 0RF Rx Instructions: As directed (DME) adhesive tape [[employer]] 1 X 10 -yard tape See Rx Instructions .Route Qty: 2 0RF Rx Instructions: As directed (DME) adhesive tape [[employer]] 1 X 10 -yard tape See Rx Instructions .Route Qty: 2 0RF Rx Instructions: As directed (DME) gauze bandage 4 X 4 bandage See Rx Instructions .Route Qty: 1200 0RF Rx Instructions: As directed (DME) gauze bandage 4 X 4 bandage See Rx Instructions .Route Qty: 1200 0RF Rx Instructions: As directed (DME) adhesive tape 1 X 10 -yard tape See Rx Instructions .Route Qty: 2 0RF Rx Instructions: As directed No Action nicotine 14 mg/24 hr patch 24 hour 1 patch topical DAILY 0RF zinc oxide 20 % Ointment 1 appl topical DAILY PRN (Reason: Rash) Qty: 28 0RF Protocol: Apply to: Apply to: buttock wounds - surrounding open wound and over erythema skin changes doxycycline hyclate 100 mg capsule 100 mg PO BID 14 Days Qty: 28 0RF acetaminophen [Tylenol Extra Strength] 500 mg tablet 1,000 mg PO Q4H PRN0RF nicotine 21 mg/24 hr patch 24 hour 1 patch transdermal DAILY Qty: 28 4RF (DME) DuoDERM CGF Dressing 8 X 12 bandage See Rx Instructions .Route Qty: 5 0RF Rx Instructions: As directed gabapentin 100 mg capsule 200 mg PO BEDTIME 0RF folic acid 1 mg tablet 1 mg PO DAILY Qty: 90 3RF escitalopram oxalate 10 mg tablet 10 mg PO DAILY Qty: 90 3RF baclofen 10 mg tablet 10 mg PO DAILY Qty: 90 3RF cholecalciferol (vitamin D3) 25 mcg (1,000 unit) capsule 25 mcg PO DAILY Qty: 90 3RF docusate sodium 100 mg capsule 100 mg PO BID 90 Days Qty: 180 2RF levothyroxine 88 mcg tablet 88 mcg PO DAILY Qty: 90 3RF
[2022-04-13] MEDS: levoFLOXacin 500 MG TABLET PO (12:39)
== END 2022-04-13 13:45 | disposition home or self-care (01) ==
LOC: HO.ED 12:45
PROVIDERS: Emergency Provider Emergency Medicine; PCP Internal Medicine
DX: T81.31XA Disruption of external operation (surgical) wound, not elsewhere classified, initial encounter (principal); R78.81 Bacteremia; B95.7 Other staphylococcus as the cause of diseases classified elsewhere; Z16.29 Resistance to other single specified antibiotic; F03.90 Unspecified dementia, unspecified severity, without behavioral disturbance, psychotic disturbance, mood disturbance, and anxiety; Z95.0 Presence of cardiac pacemaker
CPT/HCPCS: 99283; 99284

== ENCOUNTER → 2022-05-23 10:27 | Outpatient (BNVA) | payer OTHER, SELFPAY | PROVIDERS: PCP Internal Medicine; Visit Provider Physician Assistant | DX: M62.461 Contracture of muscle, right lower leg (principal); M62.462 Contracture of muscle, left lower leg; Z96.641 Presence of right artificial hip joint | CPT/HCPCS: 99212 ==

== ENCOUNTER 2022-06-24 14:05 | Outpatient (REF) | payer OTHER, SELFPAY ==
[2022-06-24 16:32] LABS: MANUAL DIFF FLAG NO
[2022-06-24 16:33] LABS: Basophils Absolute Auto 0.1 X10*3/uL (0.0-0.2); Basophils Percent Auto 0.4 % (0-2); Eosinophils Absolute Auto 0.3 X10*3/uL (0.0-0.4); Eosinophils Percent Auto 2.3 % (0-4); Hematocrit 34.3 % (37.0-47.0); Hemoglobin 10.3 g/dl (12.0-16.0); Imm Gran Abs Auto 0.15 X10*3/uL (0.00-0.03); Lymphocytes Absolute Auto 2.8 X10*3/uL (1.2-4.9); Lymphocytes Percent Auto 19.3 % (20-40); Mean Corpuscular Hemoglobin 23.5 pg (27.0-33.0); Mean Corpuscular Volume 78.3 fL (80.0-98.0); Mean Platelet Volume 9.2 fL (9.4-12.3); Monocytes Absolute Auto 0.8 X10*3/uL (0.1-1.2); Monocytes Percent Auto 5.5 % (2-11); Neutrophils Absolute Auto 10.3 x10*3/uL (2.0-8.3); Neutrophils Percent Auto 71.5 % (45-73); Platelet Count 730 X10*3/uL (160-400); Red Blood Count 4.38 X10*6/uL (4.20-5.50); Red Cell Distribution Width 17.1 % (11.0-16.0); White Blood Count 14.4 X10*3/uL (4.8-10.8)
[2022-06-24 16:55] LABS: Alanine Aminotransferase 7 U/L (0-31); Albumin Level 3.3 g/dL (3.5-5.0); Alkaline Phosphatase 149 U/L (39-117); Anion Gap 17 (12-20); Aspartate Amino Transferase 8 U/L (5-31); Bilirubin Total 0.2 mg/dL (0.0-1.0); Blood Urea Nitrogen 13 mg/dL (9-16); Carbon Dioxide 25 mmol/L (22-29); Chloride 100 mmol/L (96-108); Estimated Glomerular Filt Rate > 60; Glucose Random 102 mg/dL (60-115); Iron 20 mcg/dL (30-160); Percent Iron Saturation 6 % (15-50); Potassium 4.2 mmol/L (3.3-5.1); Sodium 138 mmol/L (135-145); Total Iron Binding Capacity 312 mcg/dL (228-428); Total Protein 7.1 g/dL (6.5-8.0); Unsaturated Iron Binding 292 ug/dL
[2022-06-24 17:15] LABS: Vitamin D 25-OH Total 53.2 ng/mL (>30)
[2022-06-24 17:54] LABS: Free T4 (Free Thyroxine) 1.22 ng/dL (0.71-1.85)
== END 2022-06-24 14:06 | disposition home or self-care (01) ==
LOC: HO.HMGCLDS 14:05
PROVIDERS: PCP Internal Medicine; Visit Provider Internal Medicine
DX: E03.9 Hypothyroidism, unspecified (principal); F03.90 Unspecified dementia, unspecified severity, without behavioral disturbance, psychotic disturbance, mood disturbance, and anxiety; M86.9 Osteomyelitis, unspecified; E55.9 Vitamin D deficiency, unspecified
CPT/HCPCS: 36415; 80053; 82306; 83540; 84439; 84443; 85025

== ENCOUNTER 2022-10-13 10:41 | Outpatient (REF) | payer OTHER, SELFPAY ==
[2022-10-13 13:49] LABS: MANUAL DIFF FLAG NO
[2022-10-13 13:57] LABS: Basophils Absolute Auto 0.1 X10*3/uL (0.0-0.2); Basophils Percent Auto 0.5 % (0-2); Eosinophils Absolute Auto 0.9 X10*3/uL (0.0-0.4); Hematocrit 38.6 % (37.0-47.0); Hemoglobin 11.4 g/dl (12.0-16.0); Imm Gran Abs Auto 0.08 X10*3/uL (0.00-0.03); Imm Gran Pct Auto 0.5 % (0.0-0.4); Lymphocytes Percent Auto 13.4 % (20-40); Mean Corpuscular HGB Conc 29.5 g/dl (31.0-35.0); Mean Corpuscular Hemoglobin 23.1 pg (27.0-33.0); Mean Corpuscular Volume 78.1 fL (80.0-98.0); Mean Platelet Volume 10.4 fL (9.4-12.3); Monocytes Absolute Auto 0.5 X10*3/uL (0.1-1.2); Monocytes Percent Auto 3.5 % (2-11); Neutrophils Absolute Auto 11.1 x10*3/uL (2.0-8.3); Neutrophils Percent Auto 76.1 % (45-73); Platelet Count 633 X10*3/uL (160-400); Red Blood Count 4.94 X10*6/uL (4.20-5.50); Red Cell Distribution Width 18.4 % (11.0-16.0); White Blood Count 14.6 X10*3/uL (4.8-10.8)
[2022-10-13 14:24] LABS: Alanine Aminotransferase 642 U/L (0-31); Albumin Level 3.4 g/dL (3.5-5.0); Alkaline Phosphatase 820 U/L (39-117); Anion Gap 13 (12-20); Aspartate Amino Transferase 474 U/L (5-31); Bilirubin Total 0.3 mg/dL (0.0-1.0); Blood Urea Nitrogen 12 mg/dL (9-16); Calcium 9.3 mg/dL (8.4-10.2); Carbon Dioxide 22 mmol/L (22-29); Chloride 105 mmol/L (96-108); Estimated Glomerular Filt Rate > 60; Glucose Random 197 mg/dL (60-115); Iron 33 mcg/dL (30-160); Percent Iron Saturation 13 % (15-50); Potassium 3.6 mmol/L (3.3-5.1); Sodium 136 mmol/L (135-145); Total Iron Binding Capacity 253 mcg/dL (228-428); Unsaturated Iron Binding 220 ug/dL
== END 2022-10-13 10:42 | disposition home or self-care (01) ==
LOC: HO.HMGCLDS 10:41
PROVIDERS: PCP Internal Medicine; Visit Provider Internal Medicine
DX: E61.1 Iron deficiency (principal); E55.9 Vitamin D deficiency, unspecified; E03.9 Hypothyroidism, unspecified; F03.90 Unspecified dementia, unspecified severity, without behavioral disturbance, psychotic disturbance, mood disturbance, and anxiety
CPT/HCPCS: 36415; 80053; 83540; 84443; 85025

== ENCOUNTER 2022-10-25 05:45 | Outpatient (REF) | payer OTHER, SELFPAY ==
[2022-10-25 09:27] LABS: Estimated Average Glucose 103 mg/dL; Hemoglobin A1c % 5.2 %
[2022-10-25 10:03] LABS: Alanine Aminotransferase 20 U/L (0-31); Albumin Level 3.3 g/dL (3.5-5.0); Alkaline Phosphatase 179 U/L (39-117); Aspartate Amino Transferase 13 U/L (5-31); Bilirubin Direct 0.2 mg/dL (0.0-0.5); Bilirubin Total 0.4 mg/dL (0.0-1.0); Gamma Glutamyl Transpeptidase 156 U/L (7-33); HBS Num1 0.31 mIU/mL (0-7.99); HBc Num1 0.08 S/CO (0.00-0.79); HBsAGNum1 0.37 S/CO (0.00-0.99); Hepatitis B Core Antibody Nonreactive (Nonreactive); Hepatitis B Surface Antigen Negative (Negative); Iron 15 mcg/dL (30-160); Percent Iron Saturation 6 % (15-50); TSH reflex Free T4 0.42 uIU/mL (0.32-4.0); Total Iron Binding Capacity 231 mcg/dL (228-428); Total Protein 6.3 g/dL (6.5-8.0); Unsaturated Iron Binding 216 ug/dL; ~HepC Num1 0.11 S/CO (0.00-0.79); ~Hepatitis B Surface Antibody NONREACTIVE (Nonreactive); ~Hepatitis C Antibody Nonreactive (Nonreactive)
[2022-10-26 08:26] LABS: Hepatitis A Antibody IgM 0.38 Index (0-0.79); ~Hepatitis A Antibody IgM Nonreactive (Nonreactive)
[2022-10-30 11:33] LABS: Anti Nuclear Antibody Screen NEGATIVE (NEGATIVE)
[2022-10-31 16:38] LABS: Liver Kidney Microsomal Ab <=20.0 U (<=20.0)
== END 2022-10-25 05:46 | disposition home or self-care (01) ==
LOC: HO.LHD 05:45
PROVIDERS: Visit Provider Internal Medicine
DX: R79.89 Other specified abnormal findings of blood chemistry (principal); R73.9 Hyperglycemia, unspecified; F03.90 Unspecified dementia, unspecified severity, without behavioral disturbance, psychotic disturbance, mood disturbance, and anxiety; E55.9 Vitamin D deficiency, unspecified; E03.9 Hypothyroidism, unspecified; E61.1 Iron deficiency
CPT/HCPCS: 36415; 80076; 82977; 83036; 83540; 84443; 86038; 86039; 86376; 86704; 86706; 86709; 86803; 87340

== ENCOUNTER 2022-10-25 13:30 | Outpatient (REF) | payer OTHER, SELFPAY ==
--- NOTE | ~2022-10-25 | US_ITS ---
EXAMINATION: US ABDOMEN COMPLETE CLINICAL INFORMATION: Other specified abnormal finding of blood chemistry. COMPARISON: Previous abdominal ultrasound March 2010 TECHNIQUE: Real-time imaging of the abdominal viscera. FINDINGS: PANCREAS: Not well visualized due to bowel gas ABDOMINAL AORTA: Not visualized INFERIOR VENA CAVA: Not visualized LIVER: Liver echotexture may be slightly increased. Liver size and contour is normal. No focal hepatic lesion. There is no intrahepatic biliary duct dilatation seen. GALLBLADDER: Wall echo shadow complex suggestive of a gallbladder filled with gallstones. The cardiology technologist does not report patient is tender over the gallbladder. COMMON BILE DUCT: Normal in caliber measuring 0.4 cm in diameter. RIGHT KIDNEY: Question 1.3 cm cyst in the midpole. No hydronephrosis. No renal calculi or focal parenchymal lesions. The kidney measures 9.2 cm in maximum dimension. LEFT KIDNEY: Not seen SPLEEN: Not seen. FREE FLUID: None. US/US abdomen complete IMPRESSION: Very limited exam. Wall echo shadow complex suggestive of a gallbladder filled with gallstones. Slightly echogenic liver probably representing fatty infiltration.
== END 2022-10-25 13:31 | disposition home or self-care (01) ==
LOC: HO.US 13:30
PROVIDERS: Visit Provider Internal Medicine
DX: R79.89 Other specified abnormal findings of blood chemistry (principal); R73.9 Hyperglycemia, unspecified; F03.90 Unspecified dementia, unspecified severity, without behavioral disturbance, psychotic disturbance, mood disturbance, and anxiety; E55.9 Vitamin D deficiency, unspecified
CPT/HCPCS: 76700

== ENCOUNTER → 2023-04-03 13:55 | Outpatient (BNVA) | payer OTHER, SELFPAY | PROVIDERS: PCP Internal Medicine; Visit Provider Internal Medicine | DX: M86.9 Osteomyelitis, unspecified (principal); B95.62 Methicillin resistant Staphylococcus aureus infection as the cause of diseases classified elsewhere; S73.004A Unspecified dislocation of right hip, initial encounter; X58.XXXA Exposure to other specified factors, initial encounter; Y93.9 Activity, unspecified; Y92.9 Unspecified place or not applicable; Y99.8 Other external cause status; Z96.641 Presence of right artificial hip joint; Z45.89 Encounter for adjustment and management of other implanted devices; Z99.3 Dependence on wheelchair | CPT/HCPCS: 99202 ==

== ENCOUNTER 2023-06-03 20:29 | Inpatient (IN) | payer OTHER, SELFPAY ==
--- NOTE | ~2023-06-03 | CT_ITS ---
EXAMINATION: CT HIP WITHOUT CONTRAST, RIGHT CLINICAL INFORMATION: Pain. Worsening wound. COMPARISON: CT 04/08/2022 TECHNIQUE: CT without contrast is performed on the right hip with sagittal and coronal reformats. This CT examination was performed using dose optimization techniques as appropriate, variously including the following: *Automated exposure control *Adjustment of mA and/or kV according to patient size (this includes techniques or standardized protocols for targeted exams where dose is matched to indication/reason for exam; i.e. extremities or head) *Use of iterative reconstruction technique DLP: 259 mGy-cm FINDINGS: Again demonstrated are postsurgical changes of the proximal femur with chronic proximal/lateral dislocation. There is been an increase in the heterotopic ossification surrounding the proximal femur at the anterior and lateral aspect. Ossification at the posterior aspect appears fragmented or eroded. Heterotopic ossification extending from the anterior superior acetabulum has become more confluent. There is a complex collection or soft tissue throughout the pseudoarticulation and proximal femur which has increased, with a tract extending laterally to a longitudinal cleft within the overlying skin lateral to the hip presumably the site of a large surgical incision. Cannot exclude the possibility of CT/CT hip RT wo IV con IMPRESSION: Postsurgical changes of the proximal femur with chronic proximal/lateral dislocation. There has been an increase in the heterotopic ossification surrounding the proximal femur, with the exception of a posterior portion which appears eroded and fragmented. There is a complex collection or soft tissue throughout the pseudoarticulation and proximal femur which has increased, with a sinus tract extending laterally to a longitudinal cleft within the overlying skin presumably the site of a large surgical incision. Concerning for infection and chronic osteomyelitis.
--- NOTE | ~2023-06-03 | XR_ITS ---
EXAMINATION: XR CHEST CLINICAL INFORMATION: Pneumonia. COMPARISON: Chest radiograph 07/28/2021. TECHNIQUE: Frontal view of the chest was obtained. FINDINGS: Stable appearance of the cardiomediastinal silhouette. Chronic interstitial prominence. New focal hazy airspace opacity in the right lower lobe. Suspect trace amount of left-sided pleural fluid versus artifact from patient's rotation. No pneumothorax. No displaced osseous fractures. XR/XR chest 1V IMPRESSION: 1. New focal hazy airspace opacity in the right lower lobe concerning for aspiration or pneumonia in the appropriate clinical context. Recommend reimaging after treatment to ensure resolution. 2. Suspect trace amount of left-sided pleural fluid versus artifact.
[2023-06-03 20:33] VITALS: BP 106/55; BP 107/60; PULSE 100; PULSE 116; RESP 20; TEMP 38.9; O2SAT 96
--- NOTE | 2023-06-03 20:59 | ECG_ITS ---
Test Reason : TACHYCARDIA Blood Pressure : / mmHG Vent. Rate : 114 BPM Atrial Rate : 115 BPM P-R Int : 126 ms QRS Dur : 074 ms QT Int : 334 ms P-R-T Axes : 228 -19 032 degrees QTc Int : 460 ms Poor data quality Sinus tachycardia Low voltage QRS Abnormal ECG When compared with ECG of 24-JUL-2021 12:37, Current undetermined rhythm precludes rhythm comparison, needs review Referred By: Generic ED Physician Electronically Signed By:Selvin Lou
--- NOTE | 2023-06-03 21:02 | ED_ITS ---
HPI - General Adult General Chief complaint: Altered Mental Status Stated complaint: AMS,pale,lethargic Time Seen by Provider: 06/03/23 21:01 Source: patient, family (patient's guardian) and EMS Mode of arrival: EMS Limitations: other (patient has a history of dementia) History of Present Illness HPI narrative: Patient is a 58 year old assigned female at with a history of dementia, contracted extremities, pacemaker, and balance disorder presenting to the emergency department today with a fever and being less verbal than usual. Patient's guardian states that the patient developed a fever today and he is co ncerned that she is as sick as she was last time. Patient states that the patient is usually some what verbal and today she has not been. Onset (ago): hour(s) Severity: mild Severity scale (1-10): 5 Relieving factors: none Exacerbating factors: none Associated symptoms: fever/chills Treatments prior to arrival: none Related Data Home Medications Medication Instructions Recorded Confirmed acetaminophen 500 mg tablet 1,000 mg PO Q4H PRN 02/21/22 01/06/23 (Tylenol Extra Strength) ceftriaxone 2 gram intravenous 2 g IV DAILY 04/03/23 solution mecobalamin (vitamin B12) 1,000 1,000 mcg PO DAILY 04/03/23 mcg lozenges vancomycin 500 mg/100 mL in 0.9% 1 g IV Q12H 04/03/23 sodium chloride intravenous piggyback Previous Rx's Medication Instructions Recorded zinc oxide 20 % topical ointment 1 appl topical DAILY PRN Rash #28 08/09/21 grams baclofen 10 mg tablet 10 mg PO DAILY #90 tabs 02/21/22 cholecalciferol (vitamin D3) 25 25 mcg PO DAILY #90 caps 02/21/22 mcg (1,000 unit) capsule docusate sodium 100 mg capsule 100 mg PO BID 90 days #180 caps 02/21/22 escitalopram oxalate 10 mg tablet 10 mg PO DAILY #90 tabs 02/21/22 folic acid 1 mg tablet 1 mg PO DAILY #90 tabs 02/21/22 hydrocolloid dressing 8 X 12 #5 ea 02/21/22 (DuoDERM CGF Dressing) adhesive tape 1 X 10 yard #2 ea 04/13/22 adhesive tape 1 X 10 yard #2 ea 04/13/22 ([employer]) adhesive tape 1 X 10 yard #2 ea 04/13/22 ([employer]) gauze bandage 4 X 4 #1,200 ea 04/13/22 gauze bandage 4 X 4 #1,200 ea 04/13/22 gauze bandage 4 X 4 #1,200 ea 04/13/22 polyethylene glycol 3350 17 gram 17 g PO DAILY #30 ea 05/30/22 oral powder packet (Miralax) starch (thickening) (Instant Food See Rx Instructions PO TID #284 06/24/22 Thickener oral powder) grams powered recliner chair #1 ea 11/22/22 roho seat cushion #1 ea 11/22/22 ferrous sulfate 325 mg (65 mg 325 mg PO DAILY #90 tabs 12/23/22 iron) tablet,delayed release albuterol sulfate 0.63 mg/3 mL 0.63 mg (3 mL) inhalation BID #90 01/06/23 solution for nebulization mL nebulizers #1 ea 01/06/23 pramoxine 1 % lotion (Sarna 1 appl topical BID #237 mL 01/06/23 Sensitive) cetirizine 10 mg capsule (Zyrtec) 10 mg PO DAILY PRN allergy 02/14/23 symptoms #90 caps Air mattress overlay #1 ea 03/03/23 Adult disposable briefs #200 ea 03/17/23 body wipes #1,200 ea 03/17/23 disposable bed pads #100 ea 03/17/23 disposable gloves (Vinyl Gloves) #200 ea 03/17/23 levothyroxine 100 mcg tablet 100 mcg PO DAILY #90 tabs 04/02/23 gabapentin 300 mg capsule See Rx Instructions PO .COMPLEX 05/18/23 #120 caps Allergies Allergy/AdvReac Type Severity Reaction Status Date / Time [place] nut Allergy Unknown Verified 04/03/23 14:11 lactose Allergy Diarrhea Verified 04/03/23 14:11 Review of Systems Review of Systems: Yes Unobtainable due to mental condition and Unobtainable due to mental status Constitutional: Constitutional: Reports no additional constitutional complaints and Reports fever(s) Eyes: Eyes: Denies eye discharge and Denies loss of vision ENT: Denies dizziness, Denies epistaxis and Denies neck mass Cardiovascular: Cardiovascular: Denies Loss of Consciousness and Denies dysp erasmo Respiratory: Respiratory: Reports no additional respiratory complaints and Denies dyspnea Gastrointestinal: Gastrointestinal: Reports no additional gastrointestinal complaints Genitourinary: Genitourinary: Reports urinary incontinence (chronic for patient) Comments: patient's guardian states that the patient also has stool that comes out of her vaginal canal Musculoskeletal: Musculoskeletal: Reports no additional musculoskeletal complaints, Denies numbness and Denies tingling Neurologic: Denies dizziness, Denies loss of vision, Denies numbness and Denies tingling Psychiatric: Psychiatric: Reports no additional psychiatric complaints Endocrine: Endocrine: Reports no additional endocrine complaints Hematologic/Lymphatic: Hematologic/Lymphatic: Reports no additional hematologic/lymphatic complaints Allergic/Immunologic: Allergic/Immunologic: Reports no additional allergic/ immunologic complaints PMF Past Medical History Attestation statement: The following information was validated with the patient. (all information validated with the patient's guardian.) Source: old records reviewed, obtained from family (patient's guardian and EMS provided additional history.) and nursing notes reviewed Medical History Abnormal EKG Abnormal urine odor Balance disorder Closed dislocation of right hip Closed hip fracture Dementia Dementia Dementia Dislocation, hip closed Displaced fracture of right femoral neck Elevated LFTs Fever Hip dislocation, right History of pacemaker Hypothyroidism Lactose intolerance Left leg weakness Leukocytosis (leucocytosis) Memory loss Osteomyelitis of right hip Pacemaker Pre-op evaluation Preoperative cardiovascular examination PTSD (post-traumatic stress disorder) Rash Shortness of breath Sinus pause Symptomatic bradycardia Syncope Tobacco dependence Urinary incontinence Visit for wound check Surgical History History of hemiarthroplasty of right hip Hx of total hip arthroplasty No pertinent past surgical history Status post hip hemiarthroplasty Family History Family History Mother Unknown family medical history Father Unknown family medical history Social History Social History Household Members: Spouse Housing: Apartment Housing Other:: From [facility] Do you presently have visiting nurse or other home services: No Unable to assess alcohol history related to: Unknown Alcohol intake: never Patient Tobacco Use Status: Former Tobacco user Tobacco use type: Cigarette Cigarettes Per Day: 5.0 Years Smoked: since teen years per pt Smoked in Last 30 Days: No e-Cigarette/Vaping Use: Never Used Second Hand Smoke Exposure: Yes Use of substances other than those prescribed or required for medical reasons: No Substance Use Type: Marijuana Advance Directives: Yes Advance Directives on File: Yes Advance Directives Date on File: 06/16/21 Nutrition Risks: Difficulty chewing and Difficulty swallowing Patient : No service: Yes Current occupational status: disabled Current occupation: rt handed Cognitive needs: Yes Hearing needs: No Vision needs: Yes Physical Exam ED Vital Signs: Vital Signs - 24 hr 06/03/23 20:33 Temperature 102.1 F H Pulse Rate 116 H Respiratory Rate 20 Blood Pressure 106/55 L Pulse Oximetry 96 Oxygen Delivery Method Room Air BMI result Body Mass Index 20.0 Const General: cooperative, alert and awake Limitations: other limitations (patient is currently non verbal) HENMT Head: Yes normal to inspection and Yes atraumatic Ears: hearing grossly normal bilaterally and external ears normal General nose exam: Normal external nose present, no nasal discharge noted and no epistaxis Face and sinus: Yes normal facial exam, No abrasion and No laceration Mouth: Normal oral and palatal mucosa present, no drooling and no muffled voice Eyes General: appearance normal, both eyes and all related structures Periorbital: periorbital findings normal Eyelids: Yes eyelids normal Conjunctivae: conjunctivae normal Pupils: Equal, round and reactive pupils present EOM: EOMs intact bilaterally Neck Neck: Yes normal visual inspection, Yes full ROM and Yes no lymphadenopathy Chest Chest palpation & inspection: normal inspection of the chest Resp Effort & Inspection: normal respiratory effort and able to speak in complete sentences Auscultation: clear to auscultation bilaterally Cardio Rate: tachycardic Rhythm: regular rhythm GI Inspection: Yes normal to inspection Neuro General: Unable to assess gait Cranial nerves: Yes Equal, round and reactive pupils present Gait exam (Neuro): Unable to assess gait Coordination: [id number] test normal Extrem Other: patient's extremities are contracted at baseline, right hip wound with purulent discharge and foul smell General: Yes capillary refill normal Psych Appearance: grossly normal Mental Status: mental status grossly normal Affect: normal affect Attitude: cooperative Medications Administered Generic Name Dose Route Start Last Admin Trade Name Freq PRN Reason Stop Dose Admin Enoxaparin Sodium 40 mg 06/03/23 23:00 06/03/23 23:24 Enoxaparin Sodium 40 Mg/0.4 Ml Syringe SUBCUT 40 mg Q24H JOMAR Administration Sodium Chloride 3 ml 06/04/23 00:00 06/03/23 23:25 0.9 % Sodium Chloride Flush 3 Ml Syringe IVFLUSH 3 ml QSHIFT JOMAR Administration Discontinued Medications Generic Name Dose Route Start Last Admin Trade Name Jenifer PRN Reason Stop Dose Admin Acetaminophen 650 mg 06/03/23 22:37 06/03/23 22:50 Acetaminophen Supp 650 Mg Supp.Rect [place] 06/03/23 22:38 650 mg ONCE ONE Administration Vancomycin HCl 1,000 mg/ 270 mls @ 270 mls/hr 06/03/23 21:07 06/03/23 23:12 Sodium Chloride IV 06/03/23 22:06 Infused ONCE ONE Infusion Ceftriaxone Sodium 1 gm/ 50 mls @ 100 mls/hr 06/03/23 21:07 06/03/23 21:47 Sodium Chloride IV 06/03/23 21:36 Infused ONCE ONE Infusion Sodium Chloride 1,395 mls @ 1,395 mls/hr 06/03/23 22:39 06/03/23 22:51 Ns 30 ml/kg infuse over 1 hr (1395 ml) 06/03/23 23:38 1,395 mls/hr IV Administration .Q1H STA Medical Decision Making Medical Decision Making MDM Narrative: Patient is a 58 year old assigned female at with a history of dementia, contracted extremities, pacemaker, and balance disorder presenting to the emergency department today with worsening AMS and a fever. Patient's physical exam was as noted in the physical exam portion of this chart. Patient's blood work showed an elevated WBC count of 18.9. Patinet's chemistry is still pending. The sample had been drawn twice however, the lab cited a large descrepency between the 2 samples and requested a third sample be drawn - that is still pending. Patent's lactic acid was 2.8. Patient's urine showed an acute UTI. Patient's EKG showed tachycardia. Patient's chest x-ray showed evidence of pneumonia in the right lower lobe. Patient's right hip CT showed evidence of infection and/or chronic osteomyelitis. Patient was given IV Vanc and Rocephin. Patient was given IV fluids. I spoke to the hospitalist who agreed to admission. I explained my physical exam findings as well as all test results to the patient and the patient's guardian. I answered all questions asked by the patient's guar rhina. Patient's guardian verbalized agreement and understanding with this treatment plan and admission. Differential Diagnosis Differential Diagnoses: The differential diagnosis associated with the presentation includes Sepsis Aspiration pneumonia UTI Osteomyelitis Cellulitis Admission/Observation Consideration of admission/observation: Escalation of care including admission/observation considered Patient admitted. Consult Healthcare Provider Management of the patient was discussed with: Hospitalist (agreed to admission.) Lab Data [facility] Lab Attestation statement: I reviewed the patient's lab results. My interpretation of these lab results are in the MDM portion of this chart. 06/03/23 21:02 06/03/23 21:02 Labs: Lab Results 06/03/23 06/03/23 06/03/23 Range/Units 20:34 21:02 21:02 WBC 18.9 H (4.8-10.8) X10*3/uL RBC 5.29 (4.20-5.50) X10*6/uL Hgb 14.6 D (12.0-16.0) g/dl Hct 46.6 D (37.0-47.0) % MCV 88.1 (80.0-98.0) fL MCH 27.6 (27.0-33.0) pg MCHC 31.3 (31.0-35.0) g/dl RDW 14.4 (11.0-16.0) % Plt Count 530 H (160-400) X10*3/uL MPV 9.8 (9.4-12.3) fL Immature Gran % (Auto) 0.5 H (0.0-0.4) % Neut % (Auto) 79.2 H (45-73) % Lymph % (Auto) 16.3 L (20-40) % Dare % (Auto) 3.5 (2-11) % Eos % (Auto) 0.2 (0-4) % Baso % (Auto) 0.3 (0-2) % Lymph # (Auto) 3.1 (1.2-4.9) X10*3/uL Dare # (Auto) 0.7 (0.1-1.2) X10*3/uL Eos # (Auto) 0.0 (0.0-0.4) X10*3/uL Baso # (Auto) 0.1 (0.0-0.2) X10*3/uL Abs Immat Gran (auto) 0.10 H (0.00-0.03) X10*3/uL Absolute Neuts (auto) 14.9 H (2.0-8.3) x10*3/uL Absolute Nucleated RBC 0.000 (0.0-0.012) X10*3/uL Nucleated RBC % (auto) 0.0 (0.0-0.2) /100WBC POC Glucose 100 (60-115) mg/dL Lactic Acid 2.8 H* (0.5-2.0) mmol/L Urine Color Urine Appearance Urine pH (5.0-9.0) Ur Specific [place] (1.005-1.025) Urine Protein (Neg-Trace) mg/dL Urine Glucose (UA) (Negative) mg/dL Urine Ketones (Negative) mg/dL Urine Blood (Negative) Urine Nitrite (Negative) Ur Leukocyte Esterase (Negative) Urine RBC (0-2) /HPF Urine WBC (0-5) /HPF Ur Squamous Epith Cells (0-2) /HPF Calcium Oxalate Crystal Urine Bacteria (None Seen) Hyaline Casts (0-2) /LPF 06/03/23 Range/Units 21:28 WBC (4.8-10.8) X10*3/uL RBC (4.20-5.50) X10*6/uL Hgb (12.0-16.0) g/dl Hct (37.0-47.0) % MCV (80.0-98.0) fL MCH (27.0-33.0) pg MCHC (31.0-35.0) g/dl RDW (11.0-16.0) % Plt Count (160-400) X10*3/uL MPV (9.4-12.3) fL Immature Gran % (Auto) (0.0-0.4) % Neut % (Auto) (45-73) % Lymph % (Auto) (20-40) % Dare % (Auto) (2-11) % Eos % (Auto) (0-4) % Baso % (Auto) (0-2) % Lymph # (Auto) (1.2-4.9) X10*3/uL Dare # (Auto) (0.1-1.2) X10*3/uL Eos # (Auto) (0.0-0.4) X10*3/uL Baso # (Auto) (0.0-0.2) X10*3/uL Abs Immat Gran (auto) (0.00-0.03) X10*3/uL Absolute Neuts (auto) (2.0-8.3) x10*3/uL Absolute Nucleated RBC (0.0-0.012) X10*3/uL Nucleated RBC % (auto) (0.0-0.2) /100WBC POC Glucose (60-115) mg/dL Lactic Acid (0.5-2.0) mmol/L Urine Color Yellow Urine Appearance Cloudy Urine pH 6.5 (5.0-9.0) Ur Specific [place] >= 1.030 H (1.005-1.025) Urine Protein 30 (1+) H (Neg-Trace) mg/dL Urine Glucose (UA) Negative (Negative) mg/dL Urine Ketones Trace (Negative) mg/dL Urine Blood Moderate (2+) H (Negative) Urine Nitrite Positive H (Negative) Ur Leukocyte Esterase Small (1+) H (Negative) Urine RBC >20 H (0-2) /HPF Urine WBC 6-10 (0-5) /HPF Ur Squamous Epith Cells 0-2 (0-2) /HPF Calcium Oxalate Crystal Present Urine Bacteria 4+ (None Seen) Hyaline Casts 0-2 (0-2) /LPF Independent Interpretation I performed an independent interpretation of an: EKG, Plain X-Ray and CT Scan Interpretation: My interpretation is in agreement with the radiologist's impression of these imaging studies. EXAMINATION: XR CHEST CLINICAL INFORMATION: Pneumonia. COMPARISON: Chest radiograph 07/28/2021. TECHNIQUE: Frontal view of the chest was obtained. FINDINGS: Stable appearance of the cardiomediastinal silhouette. Chronic interstitial prominence. New focal hazy airspace opacity in the right lower lobe. Suspect trace amount of left-sided pleural fluid versus artifact from patient's rotation. No pneumothorax. No displaced osseous fractures. XR/XR chest 1V IMPRESSION: 1.? New focal hazy airspace opacity in the right lower lobe concerning for aspiration or pneumonia in the appropriate clinical context. Recommend reimaging after treatment to ensure resolution. 2.? Suspect trace amount of left-sided pleural fluid versus artifact. Dictated By: Anila Lombardi Signed By: Electronically signed by Anila?Maria C 06/03/23 2346 EXAMINATION: CT HIP WITHOUT CONTRAST, RIGHT CLINICAL INFORMATION: Pain. Worsening wound.? COMPARISON: CT 04/08/2022? TECHNIQUE: CT without contrast is performed on the right hip with sagittal and coronal reformats. This CT examination was performed using dose optimization techniques as appropriate, variously including the following: *Automated exposure control *Adjustment of mA and/or kV according to patient size (this includes techniques or standardized protocols for targeted exams where dose is matched to indication/reason for exam; i.e. extremities or head) *Use of iterative reconstruction technique DLP: 259 mGy-cm FINDINGS: Again demonstrated are postsurgical changes of the proximal femur with chronic proximal/lateral dislocation. There is been an increase in the heterotopic ossification surrounding the proximal femur at the anterior and lateral aspect. Ossification at the posterior aspect appears fragmented or eroded. Heterotopic ossification extending from the anterior superior acetabulum has become more confluent. There is a complex collection or soft tissue throughout the pseudoarticulation and proximal femur which has increased, with a tract extending laterally to a longitudinal cleft within the overlying skin lateral to the hip presumably the site of a large surgical incision. Cannot exclude the possibility of CT/CT hip RT wo IV con IMPRESSION: Postsurgical changes of the proximal femur with chronic proximal/lateral dislocation. There has been an increase in the heterotopic ossification surrounding the proximal femur, with the exception of a posterior portion which appears eroded and fragmented. There is a complex collection or soft tissue throughout the pseudoarticulation and proximal femur which has increased, with a sinus tract extending laterally to a longitudinal cleft within the overlying skin presumably the site of a large surgical incision. Concerning for infection and chronic osteomyelitis. Dictated By: David Pedraza MD Signed By: Electronically signed by David Pedraza MD 06/04/23 0001 --- Vent. Rate: 114 BPM ? ? Atrial Rate: 115 BPM P-R Int: 126 ms? QRS Dur: 074 ms QT Int: 334 ms ? ? ? P-R-T Axes: 228 -19 032 degrees QTc Int: 460 ms ? Undetermined rhythm Low voltage QRS Septal infarct (cited on or before 20-JUL-2021) Abnormal ECG When compared with ECG of 24-JUL-2021 12:37, Current undetermined rhythm precludes rhythm comparison, needs review Questionable change in initial forces of Anteroseptal leads Nonspecific T wave abnormality now evident in Lateral leads DD/ 07 Radiology Impression Discussion of test interpretation with radiology: I have reviewed the radiologist's reading. Independent Historian Clinical information obtained from an independent historian. History obtained from or confirmed by: EMS (EMS provided additional history and confirmed the history provided by the patient's guardian) and Other (Patient's guardian provided additional history and confirmed the history provided by EMS.) External Record Review External record reviewed: Other (reviewed patient's previous culture reports and EMS records.) Critical Care Time Critical Care Time Critical Care Time: Yes Total Critical Care Time: 45 Attestation: I spent 45 minutes of Critical Care Time with this patient. This does not include time spent on separately reported billable procedures. Discharge Plan Discharge Clinical Impression: Sepsis, UTI (urinary tract infection), Pneumonia, Osteomyelitis Patient Disposition: Admitted As Inpatient
[2023-06-03 21:10] LABS: Basophils Absolute Auto 0.1 X10*3/uL (0.0-0.2); Basophils Percent Auto 0.3 % (0-2); Eosinophils Percent Auto 0.2 % (0-4); Hematocrit 46.6 % (37.0-47.0); Hemoglobin 14.6 g/dl (12.0-16.0); Imm Gran Pct Auto 0.5 % (0.0-0.4); Lymphocytes Absolute Auto 3.1 X10*3/uL (1.2-4.9); Lymphocytes Percent Auto 16.3 % (20-40); MANUAL DIFF FLAG NO; Mean Corpuscular HGB Conc 31.3 g/dl (31.0-35.0); Mean Corpuscular Hemoglobin 27.6 pg (27.0-33.0); Mean Corpuscular Volume 88.1 fL (80.0-98.0); Mean Platelet Volume 9.8 fL (9.4-12.3); Monocytes Absolute Auto 0.7 X10*3/uL (0.1-1.2); Monocytes Percent Auto 3.5 % (2-11); Neutrophils Absolute Auto 14.9 x10*3/uL (2.0-8.3); Neutrophils Percent Auto 79.2 % (45-73); Platelet Count 530 X10*3/uL (160-400); Red Blood Count 5.29 X10*6/uL (4.20-5.50); Red Cell Distribution Width 14.4 % (11.0-16.0); White Blood Count 18.9 X10*3/uL (4.8-10.8)
[2023-06-03] MEDS: cefTRIAXone sodium 1 GM in 0.9 % Sodium Chloride 50 ML IV (21:17)
[2023-06-03 21:34] LABS: Appearance Urine Cloudy; Color Urine Yellow; Glucose Urine UA Negative (Negative); Leukocyte Esterase Urine Small (1+) (Negative); Nitrite Urine Positive (Negative); PH 6.5 (5.0-9.0); Specific Gravity - Urine >= 1.030 (1.005-1.025); UMIC TRIGGER UACC YES; Urine Blood Moderate (2+) (Negative); Urine Ketones Trace mg/dL (Negative); Urine Protein 30 (1+) mg/dL (Neg-Trace)
[2023-06-03 21:34] LABS: Glucose, Whole Blood 100 mg/dL (60-115)
[2023-06-03 21:36] LABS: Lactic Acid 2.8 mmol/L (0.5-2.0)
--- NOTE | 2023-06-03 21:41 | PC.NURSE ---
Pt alert, not oriented. Does not answer questions or speak at this time. at bedside reports this is unlike the pt who at baseline is vocal at times. Upper and lower extremity contractures. Bedbound at baseline. reports fever at home 102F. Breaths are even regular and unlabored. Tachy on monitor with HR 120. Skin warm, pink and dry. Abd soft and non tender. 22G IV line started on the R wrist. Ab running. 16F temp sensing urinary catheter inserted with no complications or difficulty. 100cc of cloudy, dark yellow sedimented urine noted on the collection bag. Strong urine smell noted. Feces noted coming out of the vaginal canal. MLP aware. at bedside aware of plan of care.
[2023-06-03 21:55] LABS: Bacteria Urine 4+ (None Seen); Calcium Oxalate Crystals Urine Present; Hyaline Casts Urine 0-2 /LPF (0-2); RBC Urine >20 /HPF (0-2); Squamous Epithelial Cell Urine 0-2 /HPF (0-2)
[2023-06-03 21:56] LABS: UACC Culture Trigger YES
--- OUTSIDE RECORDS SUMMARY | 2023-06-03 22:01 | XMS_ITS | Continuity of Care Document ---
Author Name Unknown Organization [facility] Address [address], [address], [address] [place] [address]- Care Team Providers Care Operations Officer Afloat Name Role Phone Not on Staff, PCP Primary Care Physician Unavail able Encounter [facility] Date(s): 10/14/22 - 11/13/22 [facility] [address] [place] [address], [address] Floor, [address] [place] [id number] Attending Physician: Oli Ar8 Admitting Physician: Admtr, Ar8 Referring Physician: Admtr, Ar8 Patient Care team information Care Team Personnel Name: Not on Staff, PCP Position: S Physician (General Medicine) Member Role: PCP Care Team Related Persons Name: OMAR CHANEY Address: [address] [facility] [place] [address]
[2023-06-03] MEDS: vancomycin HCL 1,000 MG in 0.9 % Sodium Chloride 250 ML 270 MG IV (22:04)
--- NOTE | 2023-06-03 22:44 | P.HPHOSP_ITS ---
History of Present Illness Date of Service: 06/03/23 Chief Complaint: Altered mentation This is a 58-year-old female with pertinent history dementia, hypothyroidism, heart block s/p PPM, history of right hip osteomyelitis with MRSA who was brought to the emergency department by who is the rn med surg evaluation of lethargy and decreased responsiveness. As per the , patient is nonverbal at baseline due to dementia. On the day of presentation he noticed that she was not eating and was drowsy. He suspected infection and hence got the patient to the ER. States he takes care of her at home. He states she has a history of infection and has used vancomycin multiple times in the past. Noticed increased drainage from the right hip wound which was foul smelling. Unable to obtain review of systems. In the emergency department, patient was found to be septic Review of Systems Review of Systems: Yes Unobtainable due to mental condition and Unobtainable due to mental status PMFSH Medical History Abnormal EKG Abnormal urine odor Balance disorder Closed dislocation of right hip Closed hip fracture Dementia Dementia Dementia Dislocation, hip closed Displaced fracture of right femoral neck Elevated LFTs Fever Hip dislocation, right History of pacemaker Hypothyroidism Lactose intolerance Left leg weakness Leukocytosis (leucocytosis) Memory loss Osteomyelitis of right hip Pacemaker Pre-op evaluation Preoperative cardiovascular examination PTSD (post-traumatic stress disorder) Rash Shortness of breath Sinus pause Symptomatic bradycardia Syncope Tobacco dependence Urinary incontinence Visit for wound check Family History Mother Unknown family medical history Father Unknown family medical history Surgical History History of hemiarthroplasty of right hip Hx of total hip arthroplasty No pertinent past surgical history Status post hip hemiarthroplasty Social History Household Members: Spouse Housing: Apartment Housing Other:: From [facility] Do you presently have visiting nurse or other home services: No Unable to assess alcohol history related to: Unknown Alcohol intake: never Patient Tobacco Use Status: Former Tobacco user Tobacco use type: Cigarette Cigarettes Per Day: 5.0 Years Smoked: since teen years per pt Smoked in Last 30 Days: No e-Cigarette/Vaping Use: Never Used Second Hand Smoke Exposure: Yes Use of substances other than those prescribed or required for medical reasons: No Substance Use Type: Marijuana Advance Directives: Yes Advance Directives on File: Yes Advance Directives Date on File: 06/16/21 Nutrition Risks: Difficulty chewing and Difficulty swallowing Patient : No service: Yes Current occupational status: disabled Current occupation: rt handed Cognitive needs: Yes Hearing needs: No Vision needs: Yes Meds Allergies Allergy/AdvReac Type Severity Reaction Status Date / Time [place] nut Allergy Unknown Verified 04/03/23 14:11 lactose Allergy Diarrhea Verified 04/03/23 14:11 Active Medications: Current Medications Sodium Chloride (Ns) 1,395 mls @ 1,395 mls/hr 30 ml/kg infuse over 1 hr (1395 ml) IV .Q1H STA Stop: 06/03/23 23:38 Pharmacy Consult (Consult Rx Perform Med Rec) 1 each MISCELLANE ONCE PRN PRN Reason: Consult order Home Medications Medication Instructions Recorded Confirmed Last Taken Type acetaminophen 500 mg tablet 1,000 mg PO Q4H PRN Pain 02/21/22 06/04/23 Unknown History (Tylenol Extra Strength) mecobalamin (vitamin B12) 1,000 1,000 mcg PO DAILY 04/03/23 06/04/23 Unknown History mcg lozenges Physical Exam Vital Signs and Narrative: Vital Signs: Last Vital Signs Temp 102.1 F H 06/03/23 20:33 Pulse 116 H 06/03/23 20:33 Resp 20 06/03/23 20:33 BP 106/55 L 06/03/23 20:33 Pulse Ox 96 06/03/23 20:33 O2 Del Method Room Air 06/03/23 20:33 BMI result Body Mass Index 20.0 Middle-aged female lying in bed in no distress Neck supple, no JVD Tachycardic with regular rhythm, S1-S2 heard Regular breath sounds bilaterally, no wheezing or crackles appreciated Abdomen soft nontender, no guarding, no rigidity Skin: Right hip wound draining purulent fluid ; stage II/III sacral decubitus ulcer Patient is drowsy and nonverbal Results Labs 06/03/23 21:02 06/03/23 21:02 Labs: Laboratory Results - last 24 hr 06/03/23 06/03/23 06/03/23 20:34 21:02 21:02 MCV 88.1 MCH 27.6 MCHC 31.3 RDW 14.4 Plt Count 530 H MPV 9.8 Immature Gran % (Auto) 0.5 H Neut % (Auto) 79.2 H Lymph % (Auto) 16.3 L [place] % (Auto) 3.5 Eos % (Auto) 0.2 Baso % (Auto) 0.3 Lymph # (Auto) 3.1 [place] # (Auto) 0.7 Eos # (Auto) 0.0 Baso # (Auto) 0.1 Abs Immat Gran (auto) 0.10 H Absolute Neuts (auto) 14.9 H Absolute Nucleated RBC 0.000 Nucleated RBC % (auto) 0.0 POC Glucose 100 Lactic Acid 2.8 H* Urine Color Urine Appearance Urine pH Ur Specific [place] Urine Protein Urine Glucose (UA) Urine Ketones Urine Blood Urine Nitrite Ur Leukocyte Esterase Urine RBC Urine WBC Ur Squamous Epith Cells Calcium Oxalate Crystal Urine Bacteria Hyaline Casts 06/03/23 21:28 MCV MCH MCHC RDW Plt Count MPV Immature Gran % (Auto) Neut % (Auto) Lymph % (Auto) [place] % (Auto) Eos % (Auto) Baso % (Auto) Lymph # (Auto) [place] # (Auto) Eos # (Auto) Baso # (Auto) Abs Immat Gran (auto) Absolute Neuts (auto) Absolute Nucleated RBC Nucleated RBC % (auto) POC Glucose Lactic Acid Urine Color Yellow Urine Appearance Cloudy Urine pH 6.5 Ur Specific [place] >= 1.030 H Urine Protein 30 (1+) H Urine Glucose (UA) Negative Urine Ketones Trace Urine Blood Moderate (2+) H Urine Nitrite Positive H Ur Leukocyte Esterase Small (1+) H Urine RBC >20 H Urine WBC 6-10 Ur Squamous Epith Cells 0-2 Calcium Oxalate Crystal Present Urine Bacteria 4+ Hyaline Casts 0-2 Assessment and Plan (1) Sepsis: Status: Acute Plan This is a 58-year-old female with pertinent history dementia, hypothyroidism, heart block s/p PPM, history of right hip osteomyelitis with MRSA who was brought to the emergency department by who is the rn med surg evaluation of lethargy and decreased responsiveness. #. Sepsis due to right hip wound with purulent drainage + aspiration pna. Resuscitated with IV crystalloids. Initiating empiric IV antibiotics. Blood culture and lactic acid obtained. Npo and speech consult. Imaging with sinus tract and chronic osteomyelitis. Consulting orthopedic surgery and Infectious Disease. #. Acute lactic acidosis due to sepsis #. Hypothyroidism. On Synthroid #. Dementia. Maintain sleep-wake cycle #. Sacral decubitus wound. Consulting Wound Care. Frequent change in position Med rec pending DVT prophylaxis: Lovenox Full code. Discussed with at bedside NPO Admit as inpatient and will require two night minimum hospital stay for IV antibiotics Time Spent With Patient Time: Total time managing care of this patient today ____ minutes. Quality Stroke Does the patient have a stroke diagnosis?: No VTE Prior VTE?: No VTE Risk Level:: Medical - moderate - high VTE Device Contraindication: Treatment Not Indicated VTE Drug Contraindication: N/A - Med Ordered
[2023-06-03] MEDS: Acetaminophen Supp 650 MG SUPP.RECT PR (22:50)
[2023-06-03] MEDS: SODIUM CHLORIDE 1395 ML IV (22:51)
[2023-06-03 23:07] LABS: Reflex Lactate? Lactic Acid Added
[2023-06-03] MEDS: Enoxaparin Sodium 40 MG/0.4 ML SYRINGE SUBCUT (23:24)
[2023-06-03] MEDS: 0.9 % Sodium Chloride Flush 3 ML SYRINGE IVFLUSH (23:25)
[2023-06-03 23:30] VITALS: BP 108/61; PULSE 104; RESP 26; TEMP 39.6; O2SAT 95
--- NOTE | 2023-06-03 23:38 | PC.NURSE ---
Lab called requesting a repeat draw for chemistries.
[2023-06-03 23:51] LABS: ~Lactic Acid-LAB USE ONLY 1.7 mmol/L (0.5-2.0)
[2023-06-04] VITALS (11 sets, daily range): BP systolic 100–133; BP diastolic 60–66; PULSE 92–106; RESP 18–25; TEMP 36.6–39.2; O2SAT 94–96; BMI 40.8
[2023-06-04 00:13] LABS: Alanine Aminotransferase 18 U/L (0-31); Alkaline Phosphatase 130 U/L (39-117); Aspartate Amino Transferase 30 U/L (5-31); Bilirubin Total 0.2 mg/dL (0.0-1.0); Blood Urea Nitrogen 12 mg/dL (9-16); Calcium 9.1 mg/dL (8.4-10.2); Carbon Dioxide 25 mmol/L (22-29); Chloride 106 mmol/L (96-108); Creatinine Clr Calc Pharmacy 86.4; Estimated Glomerular Filt Rate > 60; Glucose Random 110 mg/dL (60-115); Potassium 3.5 mmol/L (3.3-5.1); Sodium 140 mmol/L (135-145); Total Protein 6.3 g/dL (6.5-8.0)
[2023-06-04 00:23] LABS: Anion Gap 13 (12-20)
[2023-06-04] MEDS: Ampicillin Sodium/Sulbactam Na 3 GM in 0.9 % Sodium Chloride 100 ML IV ×4 (01:09→18:22)
--- NOTE | 2023-06-04 02:32 | PC.NURSE ---
Med req completed
[2023-06-04 05:08] LABS: Basophils Absolute Auto 0.1 X10*3/uL (0.0-0.2); Basophils Percent Auto 0.4 % (0-2); Eosinophils Percent Auto 0.1 % (0-4); Hematocrit 42.9 % (37.0-47.0); Imm Gran Abs Auto 0.06 X10*3/uL (0.00-0.03); Imm Gran Pct Auto 0.4 % (0.0-0.4); Lymphocytes Absolute Auto 1.8 X10*3/uL (1.2-4.9); Lymphocytes Percent Auto 10.7 % (20-40); MANUAL DIFF FLAG NO; Mean Corpuscular HGB Conc 30.3 g/dl (31.0-35.0); Mean Corpuscular Hemoglobin 27.5 pg (27.0-33.0); Mean Corpuscular Volume 90.9 fL (80.0-98.0); Mean Platelet Volume 9.9 fL (9.4-12.3); Neutrophils Absolute Auto 13.5 x10*3/uL (2.0-8.3); Neutrophils Percent Auto 82.4 % (45-73); Platelet Count 294 X10*3/uL (160-400); Red Blood Count 4.72 X10*6/uL (4.20-5.50); Red Cell Distribution Width 14.5 % (11.0-16.0); White Blood Count 16.4 X10*3/uL (4.8-10.8)
--- NOTE | 2023-06-04 05:19 | PC.NURSE ---
Right hip dressing soiled with purulent discharge. Wound cleansed with wound cleanser and new dressing applied. Pt tolerated well. Core temp 101.3F [place] text sent to Dr. Erazo for acetaminophen [place] as pt is not able to tolerate PO meds at this time.
[2023-06-04 05:22] LABS: Anion Gap 14 (12-20); Blood Urea Nitrogen 9 mg/dL (9-16); Calcium 9.5 mg/dL (8.4-10.2); Carbon Dioxide 19 mmol/L (22-29); Chloride 107 mmol/L (96-108); Creatinine Clr Calc Pharmacy 84.7; Estimated Glomerular Filt Rate > 60; Glucose Random 94 mg/dL (60-115); Potassium 3.9 mmol/L (3.3-5.1); Sodium 136 mmol/L (135-145)
[2023-06-04] MEDS: Acetaminophen Supp 650 MG SUPP.RECT PR ×2 (06:48→16:31)
--- NOTE | 2023-06-04 07:14 | PHA.PROG ---
Admission Date/Time: June 03, 2023 22:42 Indication: SEPSIS Weight in k.5 kg Adjusted body weight in K.9 [place] body weight in K.5 Obesity Dosing Indication % IBW: Serum Creatinine - Last 168 Hours 06/03/23 06/04/23 23:50 05:04 Creatinine 0.51 0.52 Estimated CrCl and GFR - Last 168 Hours 06/03/23 06/04/23 23:50 05:04 Estim Creat Clear Calc 86.4 84.7 Estimated GFR > 60 > 60 Vancomycin Loading Dose: 1000 MG Current Vancomycin Dosing Regimen: 1000 MG Q12 Vancomycin Monitoring using AUC goal of 400 - 600 range with trough as surrogate marker: 563 Date and Time for next Vancomycin Level to be drawn: 06/05 @0800 Pharmacist Comments on Vancomycin Plan: LOAD WAS APPROPRIATE FOR PT WEIGHT. DOSING FOR 1000 MG Q12 PUTS AUC 563 BUT COULD ALSO GO WITH 750 Q12 FOR AUC 424. PT HAS SEPSIS AND GOOD RENAL FUNCTION, I CHOSE THE MORE AGGRESSIVE OPTION. Vancomycin dosing will take advantage of Mobile Card as a clinical decision support tool that uses Bayesian modeling to calculate individual patient's pharmacokinetic parameters and forecast the patient's drug concentration time course with the target goal AUC 24 range of 400 - 600 mg/L/hr.
--- NOTE | 2023-06-04 07:21 | PHA.MEDREC ---
Pharmacy Consult ? Medication Reconciliation Pharmacy has completed the medication reconciliation. Reviewed med rec done nursing
--- NOTE | 2023-06-04 07:49 | PC.NURSE ---
pts at beside. reports that he is the pts guardian, requesting to stay with pt 05/06... pt reporting that he wants to take pt home upon d/c that he does not want her to go to rehab
--- NOTE | 2023-06-04 08:59 | PC.NURSE ---
Pt lalouce asked to stay over the night, educated him that visiting hours are 8am-8pm and is not allowed to stay overnight at the hospital.
--- NOTE | 2023-06-04 11:54 | HO.PM.IMPN ---
Subjective Subjective Date of Service: 06/04/23 Review of Systems Follow up hip wound and aspiration pna Physical Exam Vital Signs: Vital Signs: Last Vital Signs Temp 97.8 F 06/04/23 08:49 Pulse 98 06/04/23 08:49 Resp 18 06/04/23 08:49 BP 120/62 06/04/23 08:49 Pulse Ox 94 06/04/23 08:49 O2 Del Method Room Air 06/04/23 08:49 BMI result Body Mass Index 40.8 Appearing in no acute distress lung sounds are clear to auscultation heart regular rate rhythm, clear S1, S2 positive bowel sounds, abdomen is soft, nontender neuro patient opens eyes to name Objective Data Active Medications Acetaminophen (Acetaminophen 325 Mg Tablet) 650 mg PO Q6H PRN PRN Reason: Pain, Mild (Pain Scale 1-3) Acetaminophen (Acetaminophen Supp 650 Mg Supp.Rect) 650 mg HI Q6H PRN PRN Reason: Fever Last Admin: 06/04/23 06:48 Dose: 650 mg Documented By: CESILIA Enoxaparin Sodium (Enoxaparin Sodium 40 Mg/0.4 Ml Syringe) 40 mg SUBCUT Q24H [facility] Last Admin: 06/03/23 23:24 Dose: 40 mg Documented By: CESILIA Ampicillin Sodium/Sulbactam (Sodium 3 gm/ Sodium Chloride) 100 mls @ 200 mls/hr IV Q6H [facility] Last Infusion: 06/04/23 07:46 Dose: 0 mls/hr Documented By: KVNG Vancomycin HCl 1,000 mg/ (Sodium Chloride) 270 mls @ 270 mls/hr IV Q12H [facility] Melatonin (Melatonin 3 Mg Tablet) 6 mg PO BEDTIME PRN PRN Reason: Insomnia Ondansetron HCl (Ondansetron Hcl 4 Mg/2 Ml Vial) 4 mg IVPUSH Q8H PRN PRN Reason: Nausea and Vomiting Pharmacy Consult (Consult Rx Perform Med Rec) 1 each MISCELLANE ONCE PRN PRN Reason: Consult order Pharmacy Consult (Consult Rx Vancomycin Dosing) 1 each MISCELLANE DAILY PRN PRN Reason: Consult order Sodium Chloride (0.9 % Sodium Chloride Flush 3 Ml Syringe) 3 ml IVFLUSH QSHIFT [facility] Last Admin: 06/03/23 23:25 Dose: 3 ml Documented By: CESILIA Labs 06/04/23 05:04 06/04/23 05:04 Labs: Laboratory Results - last 24 hr 06/03/23 06/03/23 06/03/23 20:34 21:02 21:02 MCV 88.1 MCH 27.6 MCHC 31.3 RDW 14.4 Plt Count 530 H MPV 9.8 Immature Gran % (Auto) 0.5 H Neut % (Auto) 79.2 H Lymph % (Auto) 16.3 L [place] % (Auto) 3.5 Eos % (Auto) 0.2 Baso % (Auto) 0.3 Lymph # (Auto) 3.1 [place] # (Auto) 0.7 Eos # (Auto) 0.0 Baso # (Auto) 0.1 Abs Immat Gran (auto) 0.10 H Absolute Neuts (auto) 14.9 H Absolute Nucleated RBC 0.000 Nucleated RBC % (auto) 0.0 Anion Gap Estim Creat Clear Calc Estimated GFR POC Glucose 100 Random Glucose Lactic Acid 2.8 H* Lactic Acid F/U @ 2Hr Calcium Total Bilirubin AST ALT Alkaline Phosphatase Total Protein Albumin Urine Color Urine Appearance Urine pH Ur Specific [place] Urine Protein Urine Glucose (UA) Urine Ketones Urine Blood Urine Nitrite Ur Leukocyte Esterase Urine RBC Urine WBC Ur Squamous Epith Cells Calcium Oxalate Crystal Urine Bacteria Hyaline Casts 06/03/23 06/03/23 06/03/23 21:28 23:28 23:50 MCV MCH MCHC RDW Plt Count MPV Immature Gran % (Auto) Neut % (Auto) Lymph % (Auto) [place] % (Auto) Eos % (Auto) Baso % (Auto) Lymph # (Auto) [place] # (Auto) Eos # (Auto) Baso # (Auto) Abs Immat Gran (auto) Absolute Neuts (auto) Absolute Nucleated RBC Nucleated RBC % (auto) Anion Gap 13 Estim Creat Clear Calc 86.4 Estimated GFR > 60 POC Glucose Random Glucose 110 Lactic Acid Lactic Acid F/U @ 2Hr 1.7 Calcium 9.1 Total Bilirubin 0.2 AST 30 ALT 18 Alkaline Phosphatase 130 H Total Protein 6.3 L Albumin 3.0 L Urine Color Yellow Urine Appearance Cloudy Urine pH 6.5 Ur Specific [place] >= 1.030 H Urine Protein 30 (1+) H Urine Glucose (UA) Negative Urine Ketones Trace Urine Blood Moderate (2+) H Urine Nitrite Positive H Ur Leukocyte Esterase Small (1+) H Urine RBC >20 H Urine WBC 6-10 Ur Squamous Epith Cells 0-2 Calcium Oxalate Crystal Present Urine Bacteria 4+ Hyaline Casts 0-2 06/04/23 06/04/23 05:04 05:04 MCV 90.9 MCH 27.5 MCHC 30.3 L RDW 14.5 Plt Count 294 D MPV 9.9 Immature Gran % (Auto) 0.4 Neut % (Auto) 82.4 H Lymph % (Auto) 10.7 L [place] % (Auto) 6.0 Eos % (Auto) 0.1 Baso % (Auto) 0.4 Lymph # (Auto) 1.8 [place] # (Auto) 1.0 Eos # (Auto) 0.0 Baso # (Auto) 0.1 Abs Immat Gran (auto) 0.06 H Absolute Neuts (auto) 13.5 H Absolute Nucleated RBC 0.000 Nucleated RBC % (auto) 0.0 Anion Gap 14 Estim Creat Clear Calc 84.7 Estimated GFR > 60 POC Glucose Random Glucose 94 Lactic Acid Lactic Acid F/U @ 2Hr Calcium 9.5 Total Bilirubin AST ALT Alkaline Phosphatase Total Protein Albumin Urine Color Urine Appearance Urine pH Ur Specific [place] Urine Protein Urine Glucose (UA) Urine Ketones Urine Blood Urine Nitrite Ur Leukocyte Esterase Urine RBC Urine WBC Ur Squamous Epith Cells Calcium Oxalate Crystal Urine Bacteria Hyaline Casts Assessment and Plan (1) Sepsis: Status: Acute Plan This is a 58-year-old female with pertinent history dementia, hypothyroidism, heart block s/p PPM, history of right hip osteomyelitis with MRSA who was brought to the emergency department by who is the regional transportation manager evaluation of lethargy and decreased responsiveness. severe Sepsis Fever, tachycardia, tachypnea, lactic acidosis right hip wound with purulent drainage and aspiration pna.? Resuscitated with IV crystalloids.? empiric IV antibiotics.? Blood culture Npo and speech consult.? Imaging with sinus tract and chronic osteomyelitis.? Consulting orthopedic surgery and Infectious Disease. Aspiration pna continue unasyn for now supplemental oxygen as needed Hypothyroidism.? On Synthroid Dementia.? Maintain sleep-wake cycle Sacral decubitus wound.? Consulting Wound Care.? Frequent change in position Med rec pending DVT prophylaxis:? Lovenox Full code.? Discussed with at bedside NPO Attending Dr. Aranda continued hospital stay for IV antibiotics Time Spent With Patient Time: Total time managing care of this patient today ____ minutes. Quality Stroke Does the patient have a stroke diagnosis?: No VTE Prior VTE?: No VTE Risk Level:: Medical - moderate - high VTE Device Contraindication: Treatment Not Indicated VTE Drug Contraindication: N/A - Med Ordered
[2023-06-04] MEDS: vancomycin HCL 1,000 MG in 0.9 % Sodium Chloride 250 ML 270 MG IV ×2 (12:41→22:05)
--- NOTE | 2023-06-04 16:17 | MHC.CM.PN ---
CM MET WITH PTS /HCP/GUARDIAN AT BEDSIDE HE REPORTS HE CARES FOR HER 05/06 AND HAS TWO BLACK TOP PAVER OPERATOR'S THAT COME IN TO ASSIST THE [employer] P[employer]ER OPERATOR SERVICES ARE [facility]IA [facility] PT IS BED BOUND AND NON VERBAL PTS PROVIDED A COPY OF HER HCP AND GUARDIANSHIP PCP: JUANITA GALARZA IMM DELIVERED PER /HCP, PT WILL DC HOME, HE IS NOT INTERESTED IN SNF PLACEMENT UNDER ANY CIRCUMSTANCES SHE WILL NEED BLS TRANSPORT
[2023-06-04] MEDS: 0.9 % Sodium Chloride Flush 3 ML SYRINGE IVFLUSH ×2 (17:10→19:36)
[2023-06-04] MEDS: Enoxaparin Sodium 40 MG/0.4 ML SYRINGE SUBCUT (22:06)
[2023-06-05] MEDS: Ampicillin Sodium/Sulbactam Na 3 GM in 0.9 % Sodium Chloride 100 ML IV ×4 (01:23→18:23)
[2023-06-05 01:42] VITALS: TEMP 37.4
[2023-06-05 04:00] VITALS: BP 131/84; PULSE 110; RESP 16; TEMP 36.8; O2SAT 97
[2023-06-05 07:58] VITALS: BP 122/63; PULSE 98; RESP 18; TEMP 36.2; O2SAT 95
[2023-06-05] MEDS: 0.9 % Sodium Chloride Flush 3 ML SYRINGE IVFLUSH ×3 (08:14→21:31)
--- NOTE | 2023-06-05 08:29 | P.PNIM_ITS ---
Subjective Subjective Date of Service: 06/05/23 Review of Systems Follow up hip wound and aspiration pna Nonverbal, nonambulatory Physical Exam Vital Signs: Vital Signs: Last Vital Signs Temp 97.2 F 06/05/23 07:58 Pulse 98 06/05/23 07:58 Resp 18 06/05/23 07:58 BP 122/63 06/05/23 07:58 Pulse Ox 95 06/05/23 07:58 O2 Del Method Room Air 06/05/23 07:58 BMI result Body Mass Index 40.8 Appearing in no acute distress lung sounds are clear to auscultation heart regular rate rhythm, clear S1, S2 positive bowel sounds, abdomen is soft, nontender neuro patient opens eyes, nonambulatory, nonverbal Objective Data Active Medications Acetaminophen (Acetaminophen 325 Mg Tablet) 650 mg PO Q6H PRN PRN Reason: Pain, Mild (Pain Scale 1-3) Acetaminophen (Acetaminophen Supp 650 Mg Supp.Rect) 650 mg [place] Q6H PRN PRN Reason: Fever Last Admin: 06/04/23 16:31 Dose: 650 mg Documented By: RINA Enoxaparin Sodium (Enoxaparin Sodium 40 Mg/0.4 Ml Syringe) 40 mg SUBCUT Q24H [facility] Last Admin: 06/04/23 22:06 Dose: 40 mg Documented By: MIMI Ampicillin Sodium/Sulbactam (Sodium 3 gm/ Sodium Chloride) 100 mls @ 200 mls/hr IV Q6H [facility] Last Infusion: 06/05/23 07:20 Dose: 0 mls/hr Documented By: ALISON Vancomycin HCl 1,000 mg/ (Sodium Chloride) 270 mls @ 270 mls/hr IV Q12H [facility] Last Infusion: 06/04/23 23:10 Dose: 0 mls/hr Documented By: BROOKE Melatonin (Melatonin 3 Mg Tablet) 6 mg PO BEDTIME PRN PRN Reason: Insomnia Ondansetron HCl (Ondansetron Hcl 4 Mg/2 Ml Vial) 4 mg IVPUSH Q8H PRN PRN Reason: Nausea and Vomiting Pharmacy Consult (Consult Rx Perform Med Rec) 1 each MISCELLANE ONCE PRN PRN Reason: Consult order Pharmacy Consult (Consult Rx Vancomycin Dosing) 1 each MISCELLANE DAILY PRN PRN Reason: Consult order Sodium Chloride (0.9 % Sodium Chloride Flush 3 Ml Syringe) 3 ml IVFLUSH QSHIFT [facility] Last Admin: 06/05/23 08:14 Dose: 3 ml Documented By: ALISON Labs 06/04/23 05:04 06/04/23 05:04 Microbiology Microbiology Results: Microbiology 06/03/23 21:57 Urine Culture - Final Urine Catheterized - [place] Catheter Escherichia coli 06/03/23 21:02 Blood Culture - Preliminary Blood - Venous No growth after 24 hours. Blood Culture - Preliminary No growth after 24 hours. 06/03/23 21:02 Blood Culture - Preliminary Blood - Venous No growth after 24 hours. Assessment and Plan (1) Sepsis: Status: Acute Plan This is a 58-year-old female with pertinent history dementia, hypothyroidism, heart block s/p PPM, history of right hip osteomyelitis with MRSA who was brought to the emergency department by who is the music instructor evaluation of lethargy and decreased responsiveness. Right hip wound with purulent drainage, unspecified Vancomycin and Unasyn Blood culture negative after 24 hours Imaging with sinus tract and chronic osteomyelitis.? orthopedic surgery>plan for I&D 06/06/23 NPO after midnight Aspiration pna continue unasyn for now supplemental oxygen as needed Npo and speech consult.? severe Sepsis . Resolved Resuscitated with IV crystalloids. Secondary to right hip wound infection Fever, tachycardia, tachypnea, lactic acidosis Continue IV antibiotics E coli UTI Continue Unasyn Hypothyroidism.? On Synthroid Dementia.? Maintain sleep-wake cycle Sacral decubitus wound.? Consulting Wound Care.? Frequent change in position DVT prophylaxis:? Lovenox Full code.? Discussed with at bedside Attending Dr. Geller continued hospital stay for IV antibiotics Time Spent With Patient Time: Total time managing care of this patient today ____ minutes. Quality Stroke Does the patient have a stroke diagnosis?: No VTE Prior VTE?: No VTE Risk Level:: Medical - moderate - high VTE Device Contraindication: Treatment Not Indicated VTE Drug Contraindication: N/A - Med Ordered
[2023-06-05 08:54] LABS: Vancomycin Random 16.1 mcg/mL (15-20)
[2023-06-05 08:55] LABS: Creatinine Clr Calc Pharmacy 156.4; Estimated Glomerular Filt Rate > 60
--- NOTE | 2023-06-05 09:07 | HE.PHANOTE ---
RE: DAVID Patients level came back this morning at 16.1. Will continue with current dose of 1000 mg Q12H. Rxinsight predicted a trough of 11.4 for this patient, however patient is running higher at 16.1. Will continue with current dose due to this. Next draw is tomorrow 06/06 @0800 after two more doses.
[2023-06-05] MEDS: vancomycin HCL 1,000 MG in 0.9 % Sodium Chloride 250 ML 270 MG IV ×2 (09:31→21:18)
--- NOTE | 2023-06-05 11:39 | P.CONOP_ITS ---
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 As per the , patient is nonverbal at baseline due to dementia.? On the day of presentation he noticed that she was not eating and was drowsy.? He suspected infection and hence got the patient to the ER.? States he takes care of her at home.? He states she has a history of infection and has used vancomycin multiple times in the past.? Noticed increased drainage from the right hip wound which was foul smelling.? In the emergency department, patient was found to be septic. Patient was a dmitted to the medical service and orthopedics was consulted for further recommendations. Patient underwent right hip removal prosthesis 08/06/21 due to chronic infection, she now has right hip girdlestone <Jose F Henriquez PA-C Last Filed: 06/05/23 11:47> Review of Systems Review of Systems: per hpi <Jose F Henriquez PA-C Last Filed: 06/05/23 11:47> PMF Past Medical History Medical History: Medical History Abnormal EKG Abnormal urine odor Balance disorder Closed dislocation of right hip Closed hip fracture Dementia Dementia Dementia Dislocation, hip closed Displaced fracture of right femoral neck Elevated LFTs Fever Hip dislocation, right History of pacemaker Hypothyroidism Lactose intolerance Left leg weakness Leukocytosis (leucocytosis) Memory loss Osteomyelitis of right hip Pacemaker Pre-op evaluation Preoperative cardiovascular examination PTSD (post-traumatic stress disorder) Rash Shortness of breath Sinus pause Symptomatic bradycardia Syncope Tobacco dependence Urinary incontinence Visit for wound check <Jose F Henriquez PA-C Last Filed: 06/05/23 11:47> Family History Family History: Family History Mother Unknown family medical history Father Unknown family medical history <Jose F Henriquez PA-C - Last Filed: 06/05/23 11:47> Surgical History Surgical History: Surgical History History of hemiarthroplasty of right hip Hx of total hip arthroplasty No pertinent past surgical history Status post hip hemiarthroplasty <Jose F Henriquez PA-C - Last Filed: 06/05/23 11:47> Social History Social History: Social History Household Members: Spouse Housing: Apartment Housing Other:: From [facility] Do you presently have visiting nurse or other home services: Yes ([employer]) Unable to assess alcohol history related to: Unknown Alcohol intake: never Patient Tobacco Use Status: Former Tobacco user Tobacco use type: Cigarette Cigarettes Per Day: 5.0 Years Smoked: since teen years per pt e-Cigarette/Vaping Use: Never Used Second Hand Smoke Exposure: Yes Substance Use Type: Marijuana Advance Directives Date on File: 06/16/21 service: Yes Current occupational status: disabled Current occupation: rt handed Cognitive needs: Yes Hearing needs: No Vision needs: Yes <Jose F Henriquez PA-C - Last Filed: 06/05/23 11:47> Meds Allergies/Adverse reactions: Allergies Allergy/AdvReac Type Severity Reaction Status Date / Time [place] nut Allergy Unknown Verified 04/03/23 14:11 lactose Allergy Diarrhea Verified 04/03/23 14:11 <Jose F Henriquez PA-C - Last Filed: 06/05/23 11:47> Active Medications: Current Medications Acetaminophen (Acetaminophen 325 Mg Tablet) 650 mg PO Q6H PRN PRN Reason: Pain, Mild (Pain Scale 1-3) Acetaminophen (Acetaminophen Supp 650 Mg Supp.Rect) 650 mg OR Q6H PRN PRN Reason: Fever Last Admin: 06/04/23 16:31 Dose: 650 mg Enoxaparin Sodium (Enoxaparin Sodium 40 Mg/0.4 Ml Syringe) 40 mg SUBCUT Q24H JOMAR Last Admin: 06/04/23 22:06 Dose: 40 mg Ampicillin Sodium/Sulbactam (Sodium 3 gm/ Sodium Chloride) 100 mls @ 200 mls/hr IV Q6H [facility] Last Infusion: 06/05/23 07:20 Dose: Infused Vancomycin HCl 1,000 mg/ (Sodium Chloride) 270 mls @ 270 mls/hr IV Q12H [facility] Last Infusion: 06/05/23 10:39 Dose: Infused Melatonin (Melatonin 3 Mg Tablet) 6 mg PO BEDTIME PRN PRN Reason: Insomnia Ondansetron HCl (Ondansetron Hcl 4 Mg/2 Ml Vial) 4 mg IVPUSH Q8H PRN PRN Reason: Nausea and Vomiting Pharmacy Consult (Consult Rx Perform Med Rec) 1 each MISCELLANE ONCE PRN PRN Reason: Consult order Pharmacy Consult (Consult Rx Vancomycin Dosing) 1 each MISCELLANE DAILY PRN PRN Reason: Consult order Sodium Chloride (0.9 % Sodium Chloride Flush 3 Ml Syringe) 3 ml IVFLUSH QSHIFT [facility] Last Admin: 06/05/23 08:14 Dose: 3 ml <MALACHI Norris Last Filed: 06/05/23 11:47> Home medications: Home Medications Medication Instructions Recorded Confirmed Last Taken Type acetaminophen 500 mg tablet 1,000 mg PO Q4H PRN Pain 02/21/22 06/04/23 Unknown History (Tylenol Extra Strength) mecobalamin (vitamin B12) 1,000 1,000 mcg PO DAILY 04/03/23 06/04/23 Unknown History mcg lozenges gabapentin 300 mg capsule 300 mg PO DAILY@0900,1200 06/04/23 06/04/23 Unknown History gabapentin 300 mg capsule 600 mg PO BEDTIME 06/04/23 06/04/23 Unknown History <MALACHI Norris Last Filed: 06/05/23 11:47> Physical Exam Vital Signs: Vital Signs: Last Vital Signs Temp 97.2 F 06/05/23 07:58 Pulse 98 06/05/23 07:58 Resp 18 06/05/23 07:58 BP 122/63 06/05/23 07:58 Pulse Ox 95 06/05/23 07:58 O2 Del Method Room Air 06/05/23 07:58 BMI result Body Mass Index 40.8 <MALACHI Norris Last Filed: 06/05/23 11:47> Extrem: Other: Right hip incision is intact, there is an area along the midline that has purula nt drainage. <Jose F Henriquez PA-C - Last Filed: 06/05/23 11:47> Results Labs Result Diagrams: 06/04/23 05:04 06/05/23 08:03 <Jose F Henriquez PA-C - Last Filed: 06/05/23 11:47> Labs: Abnormal lab results 06/05/23 Range/Units 08:03 Creatinine 0.47 L (0.5-1.4) mg/dL H & H 06/03/23 06/04/23 Range/Units 21:02 05:04 Hgb 14.6 D 13.0 (12.0-16.0) g/dl Hct 46.6 D 42.9 (37.0-47.0) % All other labs normal. <Jose F Henriquez PA-C - Last Filed: 06/05/23 11:47> Assessment and Plan (1) Sepsis: Status: Acute <Jose F Henriquez PA-C - Last Filed: 06/05/23 11:47> I discussed the case with Dr Zafar. The plan at this time is to bring her to the OR 06/06/23 for I&D right hip. We will obtain consent from her as she has dementia and is unable to sign consents. She should be NPO after midnight . <Jose F Henriquez PA-C - Last Filed: 06/05/23 11:47> Time Spent With Patient Time: Total time managing care of this patient today ____ minutes. <Jose F Henriquez PA-C - Last Filed: 06/05/23 11:47> Procedures Date of Service Date of Service: 06/05/23 <Jose F Henriquez PA-C - Last Filed: 06/05/23 11:47> 06/06/23 <Earnest Zafar MD - Last Filed: 06/06/23 07:53>
--- NOTE | 2023-06-05 12:32 | MHC.CM.PN ---
Per MD rounds no discharge today. Met with HCP Christiano to discuss DP Tejinder is in place. HCP states that he has experience in Home infusion if IV ABX are required at discharge. DP home with resumption of Tejinder. Option care if home infusion ordered. Patient will require BLS transport.
[2023-06-05 14:14] VITALS: BMI 17.6
--- NOTE | 2023-06-05 14:27 | MHC.CLN ---
NUTRITION CONSULT FOR SKIN INTEGRITY. PATIENT WITH STAGE II TO COCCYX AND RIGHT HIP OSTEOMYELITIS. DIET= PUREE WITH HONEY THICK LIQUIDS. CHANGING SUPPLEMENT TO GELATEIN BID. PROVIDES 320 KCALS/40 G PROTEIN. PRODUCT IS PUDDING THICK. FOLLOW FOR INTAKE, WEIGHT, AND WOUND HEALING.
[2023-06-05 15:30] VITALS: BP 116/60; PULSE 108; RESP 16; TEMP -13.9; TEMP 6.9; O2SAT 95
[2023-06-05 16:02] VITALS: TEMP 36.1
--- NOTE | 2023-06-05 17:50 | MHC.SL.SWA ---
Speech Pathologist Impression: Risk of aspiration, oropharyngeal dysphagia Risk of Aspiration Due to: Neurological Condition Reduced Cognition Dysphasia Diet Status: UPGRADE from NPO, START on NDD1/HTL (At baseline pt was eating a pureed diet at home, no previous use of thickener per 's report) Liquid Consistency and Strategies for Safe Swallow: Liquid Intake Recommendation: Honey Thick Liquid Intake Strategies: Small Sips No Straws Solid Food Consistency: Dietary Recommendations: Pureed (NDD1) Additional Modifications to Solid Foods: Recommend UPGRADE from NPO, START on PUREED (NDD1) diet and HONEY THICK liquids (no straws), pills CRUSHED in PUREE. Aspiration precautions apply. Pt requires total 1:1 assistance feeding and benefits from cues/encouragement to swallow. Do not administer subsequent bites/sips until pt has cleared oral cavity. Minimize distractions during meal time. Pt may benefit from smaller, more frequent meals throughout the day to combat fatigue. PROJECT DIRECTOR will continue to follow. Oral Medication Intake: Crushed with Puree Please contact the pharmacy regarding appropriate crushable or liquid drug formulations that are available whenever modified delivery is recommended. Compensatory Strategies and Precautions to be Taken for Safe Swallow: Sitting Upright (90 deg) No Straw Liquids from Cup Liquids from Spoon Small Bites and Sips Rate of Ingestion Change Oral Check Supervision While Eating and Drinking for Safe Swallow: Total Assistance (1:1) Swallowing Recommended Treatments: Compens. Strategy Educat. Recommendation for Speech: Inpatient Speech Therapy Calendar Control Clerk Blood Bank Clinican/Clinical Fellow: No Supervisory Statement: I have reviewed and agree with the student/clinical fellow's documentation: N/A Speech Language Pathologist: Radha Lopez M.A., [facility]-PROJECT DIRECTOR
[2023-06-05 20:00] VITALS: BP 108/61; PULSE 104; RESP 16; TEMP 36.2; O2SAT 94
[2023-06-05] MEDS: Docusate Sodium 100 MG CAPSULE PO (21:17)
[2023-06-05] MEDS: Gabapentin 300 MG CAPSULE 600 MG PO (21:18)
[2023-06-06] MEDS: Ampicillin Sodium/Sulbactam Na 3 GM in 0.9 % Sodium Chloride 100 ML IV ×3 (00:46→12:52)
[2023-06-06 04:00] VITALS: BP 107/52; PULSE 85; RESP 16; TEMP 36.5; O2SAT 93
[2023-06-06 07:54] VITALS: BP 90/53; PULSE 95; RESP 18; TEMP 36.3; O2SAT 93
[2023-06-06 08:34] LABS: Vancomycin Random 15.8 mcg/mL (15-20)
[2023-06-06 08:36] LABS: Creatinine Clr Calc Pharmacy 91.8; Estimated Glomerular Filt Rate > 60
--- NOTE | 2023-06-06 08:56 | HE.PHANOTE ---
RE: [facility] Patients level came back this morning at 15.8. Rxinsight shows an AUC 526 mg/l/hr. Will continue with 1000 mg Q12H. predicted AUC 563 mg/l/hr. Next draw tomorrow morning, 06/07 @0800
[2023-06-06] MEDS: vancomycin HCL 1,000 MG in 0.9 % Sodium Chloride 250 ML 270 MG IV ×2 (11:30→21:33)
[2023-06-06] MEDS: Cholecalciferol (Vitamin D3) 25 MCG TABLET PO (12:52)
[2023-06-06] MEDS: Folic Acid 1 MG TABLET PO (12:52)
[2023-06-06] MEDS: Gabapentin 300 MG CAPSULE PO (12:52)
[2023-06-06] MEDS: Escitalopram Oxalate 10 MG TABLET PO (12:52)
[2023-06-06] MEDS: Baclofen 10 MG TABLET PO (12:52)
[2023-06-06] MEDS: Docusate Sodium 100 MG CAPSULE PO (12:52)
[2023-06-06] MEDS: Ferrous Sulfate 324 MG TABLET.DR PO (12:52)
[2023-06-06] MEDS: polyethylene glycoL 3350 17 GM POWD.PACK PO (12:53)
[2023-06-06] MEDS: 0.9 % Sodium Chloride Flush 3 ML SYRINGE IVFLUSH ×2 (12:53→16:39)
--- NOTE | 2023-06-06 13:29 | MHC.SPEECHCO ---
Pt NPO for procedure, LAY OUT AND DETAIL DRAFTER will continue to follow.
--- NOTE | 2023-06-06 13:31 | P.PNIM_ITS ---
Subjective Subjective Date of Service: 06/06/23 Review of Systems Follow up hip wound and aspiration pna Nonverbal, nonambulatory Physical Exam Vital Signs: Vital Signs: Last Vital Signs Temp 97.4 F 06/06/23 07:54 Pulse 95 06/06/23 07:54 Resp 18 06/06/23 07:54 BP 90/53 L 06/06/23 07:54 Pulse Ox 93 06/06/23 07:54 O2 Del Method Room Air 06/06/23 07:54 BMI result Body Mass Index 17.6 Appearing in no acute distress right hip wound lung sounds are clear to auscultation heart regular rate rhythm, clear S1, S2 positive bowel sounds, abdomen is soft, nontender neuro patient is alert x3, no focal deficits Objective Data Active Medications Acetaminophen (Acetaminophen 325 Mg Tablet) 650 mg PO Q6H PRN PRN Reason: Pain, Mild (Pain Scale 1-3) Acetaminophen (Acetaminophen Supp 650 Mg Supp.Rect) 650 mg MT Q6H PRN PRN Reason: Fever Last Admin: 06/04/23 16:31 Dose: 650 mg Documented By: RINA Baclofen (Baclofen 10 Mg Tablet) 10 mg PO DAILY [facility] Last Admin: 06/06/23 12:52 Dose: 10 mg Documented By: GLENROY Docusate Sodium (Docusate Sodium 100 Mg Capsule) 100 mg PO BID [facility] Last Admin: 06/06/23 12:52 Dose: 100 mg Documented By: GLENROY Enoxaparin Sodium (Enoxaparin Sodium 40 Mg/0.4 Ml Syringe) 40 mg SUBCUT Q24H [facility] Last Admin: 06/06/23 00:01 Dose: Not Given Documented By: RONDA Non-Admin Reason: Physician Held Med Escitalopram Oxalate (Escitalopram Oxalate 10 Mg Tablet) 10 mg PO DAILY [facility] Last Admin: 06/06/23 12:52 Dose: 10 mg Documented By: GLENROY Ferrous Sulfate (Ferrous Sulfate 324 Mg Tablet.) 324 mg PO DAILY [facility] Last Admin: 06/06/23 12:52 Dose: 324 mg Documented By: GLENROY Folic Acid (Folic Acid 1 Mg Tablet) 1 mg PO DAILY [facility] Last Admin: 06/06/23 12:52 Dose: 1 mg Documented By: GLENROY Gabapentin (Gabapentin 300 Mg Capsule) 300 mg PO DAILY@0900,1200 [facility] Last Admin: 06/06/23 13:03 Dose: Not Given Documented By: GLENROY Non-Admin Reason: am dose given late due to npo Gabapentin (Gabapentin 300 Mg Capsule) 600 mg PO BEDTIME [facility] Last Admin: 06/05/23 21:18 Dose: 600 mg Documented By: RONDA Ampicillin Sodium/Sulbactam (Sodium 3 gm/ Sodium Chloride) 100 mls @ 200 mls/hr IV Q6H [facility] Last Infusion: 06/06/23 13:29 Dose: 0 mls/hr Documented By: CAPRI Vancomycin HCl 1,000 mg/ (Sodium Chloride) 270 mls @ 270 mls/hr IV Q12H [facility] Last Infusion: 06/06/23 12:53 Dose: 0 mls/hr Documented By: GLENROY Levothyroxine Sodium (Levothyroxine Sodium 100 Mcg Tablet) 100 mcg PO DAILY@0600 [facility] Last Admin: 06/06/23 06:21 Dose: Not Given Documented By: RONDA Non-Admin Reason: NPO Loratadine (Loratadine 10 Mg Tablet) 10 mg PO DAILY PRN PRN Reason: allergy symptoms Melatonin (Melatonin 3 Mg Tablet) 6 mg PO BEDTIME PRN PRN Reason: Insomnia Ondansetron HCl (Ondansetron Hcl 4 Mg/2 Ml Vial) 4 mg IVPUSH Q8H PRN PRN Reason: Nausea and Vomiting Pharmacy Consult (Consult Rx Perform Med Rec) 1 each MISCELLANE ONCE PRN PRN Reason: Consult order Pharmacy Consult (Consult Rx Vancomycin Dosing) 1 each MISCELLANE DAILY PRN PRN Reason: Consult order Polyethylene Glycol (Polyethylene Glycol 3350 17 Gm Powd.Pack) 17 gm PO DAILY [facility] Last Admin: 06/06/23 12:53 Dose: 17 gm Documented By: GLENROY Sodium Chloride (0.9 % Sodium Chloride Flush 3 Ml Syringe) [address] [facility] Last Admin: 06/06/23 12:53 Dose: 3 ml Documented By: GLENROY Vitamin D (Cholecalciferol (Vitamin D3) 25 Mcg Tablet) 25 mcg PO DAILY [facility] Last Admin: 06/06/23 12:52 Dose: 25 mcg Documented By: GLENROY Labs 06/04/23 05:04 06/06/23 08:09 Labs: Laboratory Results - last 24 hr 06/06/23 06/06/23 08:09 08:09 Estim Creat Clear Calc 91.8 Estimated GFR > 60 Random Vancomycin 15.8 Microbiology Microbiology Results: Microbiology 06/03/23 21:02 Blood Culture - Preliminary Blood - Venous No growth after 48 hours. Blood Culture - Preliminary No growth after 48 hours. 06/03/23 21:02 Blood Culture - Preliminary Blood - Venous No growth after 48 hours. 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 Ecoli UTI likely source of sepsis continue Rocephin for now Right hip wound with purulent drainage, unspecified hx of MRSA continue Vancomycin Blood culture negative after 48 hours Imaging with sinus tract and chronic osteomyelitis.? orthopedic surgery>no plan for debridement, continue abx and wound care Aspiration pna continue rocephin supplemental oxygen as needed puree diet and honey thick liquids severe Sepsis . Resolved Resuscitated with IV crystalloids. Secondary to right hip wound infection Fever, tachycardia, tachypnea, lactic acidosis Continue IV antibiotics Hypothyroidism.? On Synthroid Dementia.? Maintain sleep-wake cycle Sacral decubitus wound.? Consulting Wound Care.? Frequent change in position DVT prophylaxis:? Lovenox Full code.? Discussed with at bedside Attending Dr. Geller continued hospital stay for IV antibiotics Time Spent With Patient Time: Total time managing care of this patient today ____ minutes. Quality Stroke Does the patient have a stroke diagnosis?: No VTE Prior VTE?: No VTE Risk Level:: Medical - moderate - high VTE Device Contraindication: Treatment Not Indicated VTE Drug Contraindication: N/A - Med Ordered
[2023-06-06 13:55] VITALS: BP 104/58; PULSE 98; RESP 18; TEMP 36.4; O2SAT 93
[2023-06-06 15:11] VITALS: BP 112/56; PULSE 92; RESP 18; TEMP 36.1; O2SAT 94
[2023-06-06 19:17] VITALS: BP 104/57; PULSE 97; RESP 18; TEMP 35.9; O2SAT 94
[2023-06-06] MEDS: Enoxaparin Sodium 40 MG/0.4 ML SYRINGE SUBCUT (21:32)
[2023-06-06] MEDS: Gabapentin 300 MG CAPSULE 600 MG PO (21:33)
[2023-06-07 04:00] VITALS: BP 133/72; PULSE 84; RESP 16; TEMP 36.5; O2SAT 93
[2023-06-07] MEDS: Levothyroxine Sodium 100 MCG TABLET PO (06:19)
[2023-06-07 07:11] VITALS: BP 109/57; PULSE 94; RESP 16; TEMP 36.6; O2SAT 93
[2023-06-07 08:24] LABS: Vancomycin Random 17.8 mcg/mL (15-20)
[2023-06-07 08:25] LABS: Anion Gap 13 (12-20); Blood Urea Nitrogen 8 mg/dL (9-16); Carbon Dioxide 29 mmol/L (22-29); Chloride 103 mmol/L (96-108); Creatinine Clr Calc Pharmacy 91.8; Estimated Glomerular Filt Rate > 60; Glucose Random 106 mg/dL (60-115); Potassium 2.9 mmol/L (3.3-5.1); Sodium 142 mmol/L (135-145)
--- NOTE | 2023-06-07 08:30 | HE.PHANOTE ---
RE:VANCO DOSING SCr 0.49 and trough 17.8 today. According to insight pt is very close to steady state. Continue current dosing regimen.
--- NOTE | 2023-06-07 08:47 | PM.CNGS ---
History of Present Illness Consult details Consult date: 06/07/23 Requesting physician: Chichi Khan Narrative: 58-year-old female patient with history of right hip osteomyelitis with MRSA presenting to the emergency department with lethargy and decreased responsiveness. Patient has a past history of dementia, hypothyroidism, heart block, and right hip osteomyelitis. Surgical consultation was requested regarding stool per vagina. According to her /caregiver discharge has been occurring intermittently over the past 3 months. He is uncertain if the stool is coming from within the vagina verses coming from outside in. She does have regular bowel movements which are sometimes loose. She does not appear to have any abdominal discomfort. Prior CT scans from outside institutions indicate normal bowel without evidence of diverticulitis or inflammatory changes involving the colon or the pelvic organs. The patient's would prefer she not have any further surgery given her weakened state. She is currently being treated with antibiotics for her right leg wound. Review of Systems Review of Systems: Yes Unobtainable due to mental status PMFSH Past Medical History Medical History Abnormal EKG Abnormal urine odor Balance disorder Closed dislocation of right hip Closed hip fracture Dementia Dementia Dementia Dislocation, hip closed Displaced fracture of right femoral neck Elevated LFTs Fever Hip dislocation, right History of pacemaker Hypothyroidism Lactose intolerance Left leg weakness Leukocytosis (leucocytosis) Memory loss Osteomyelitis of right hip Pacemaker Pre-op evaluation Preoperative cardiovascular examination PTSD (post-traumatic stress disorder) Rash Shortness of breath Sinus pause Symptomatic bradycardia Syncope Tobacco dependence Urinary incontinence Visit for wound check Family History Family History Mother Unknown family medical history Father Unknown family medical history Surgical History Surgical History History of hemiarthroplasty of right hip Hx of total hip arthroplasty No pertinent past surgical history Status post hip hemiarthroplasty Social History Social History Household Members: Spouse Housing: Apartment Housing Other:: From [facility] Do you presently have visiting nurse or other home services: Yes ([employer]) Unable to assess alcohol history related to: Unknown Alcohol intake: never Patient Tobacco Use Status: Former Tobacco user Tobacco use type: Cigarette Cigarettes Per Day: 5.0 Years Smoked: since teen years per pt e-Cigarette/Vaping Use: Never Used Second Hand Smoke Exposure: Yes Substance Use Type: Marijuana Advance Directives Date on File: 06/16/21 service: Yes Current occupational status: disabled Current occupation: rt handed Cognitive needs: Yes Hearing needs: No Vision needs: Yes Meds Allergies Allergy/AdvReac Type Severity Reaction Status Date / Time [place] nut Allergy Unknown Verified 04/03/23 14:11 lactose Allergy Diarrhea Verified 04/03/23 14:11 Active Medications: Current Medications Acetaminophen (Acetaminophen 325 Mg Tablet) 650 mg PO Q6H PRN PRN Reason: Pain, Mild (Pain Scale 1-3) Acetaminophen (Acetaminophen Supp 650 Mg Supp.Rect) 650 mg MD Q6H PRN PRN Reason: Fever Last Admin: 06/04/23 16:31 Dose: 650 mg Baclofen (Baclofen 10 Mg Tablet) 10 mg PO DAILY [facility] Last Admin: 06/06/23 12:52 Dose: 10 mg Docusate Sodium (Docusate Sodium 100 Mg Capsule) 100 mg PO BID [facility] Last Admin: 06/06/23 21:33 Dose: Not Given Enoxaparin Sodium (Enoxaparin Sodium 40 Mg/0.4 Ml Syringe) 40 mg SUBCUT Q24H [facility] Last Admin: 06/06/23 21:32 Dose: 40 mg Escitalopram Oxalate (Escitalopram Oxalate 10 Mg Tablet) 10 mg PO DAILY [facility] Last Admin: 06/06/23 12:52 Dose: 10 mg Ferrous Sulfate (Ferrous Sulfate 324 Mg Tablet.) 324 mg PO DAILY [facility] Last Admin: 06/06/23 12:52 Dose: 324 mg Folic Acid (Folic Acid 1 Mg Tablet) 1 mg PO DAILY [facility] Last Admin: 06/06/23 12:52 Dose: 1 mg Gabapentin (Gabapentin 300 Mg Capsule) 300 mg PO DAILY@0900,1200 [facility] Last Admin: 06/06/23 13:03 Dose: Not Given Gabapentin (Gabapentin 300 Mg Capsule) 600 mg PO BEDTIME [facility] Last Admin: 06/06/23 21:33 Dose: 600 mg Vancomycin HCl 1,000 mg/ (Sodium Chloride) 270 mls @ 270 mls/hr IV Q12H [facility] Last Infusion: 06/06/23 23:46 Dose: Infused Levothyroxine Sodium (Levothyroxine Sodium 100 Mcg Tablet) 100 mcg PO DAILY@0600 [facility] Last Admin: 06/07/23 06:19 Dose: 100 mcg Loratadine (Loratadine 10 Mg Tablet) 10 mg PO DAILY PRN PRN Reason: allergy symptoms Melatonin (Melatonin 3 Mg Tablet) 6 mg PO BEDTIME PRN PRN Reason: Insomnia Ondansetron HCl (Ondansetron Hcl 4 Mg/2 Ml Vial) 4 mg IVPUSH Q8H PRN PRN Reason: Nausea and Vomiting Pharmacy Consult (Consult Rx Perform Med Rec) 1 each MISCELLANE ONCE PRN PRN Reason: Consult order Pharmacy Consult (Consult Rx Vancomycin Dosing) 1 each MISCELLANE DAILY PRN PRN Reason: Consult order Polyethylene Glycol (Polyethylene Glycol 3350 17 Gm Powd.Pack) 17 gm PO DAILY [facility] Last Admin: 06/06/23 12:53 Dose: 17 gm Sodium Chloride (0.9 % Sodium Chloride Flush 3 Ml Syringe) 3 ml IVFLUSH QSHIFT [facility] Last Admin: 06/07/23 00:35 Dose: Not Given Vitamin D (Cholecalciferol (Vitamin D3) 25 Mcg Tablet) 25 mcg PO DAILY [facility] Last Admin: 06/06/23 12:52 Dose: 25 mcg Home Medications Medication Instructions Recorded Confirmed Last Taken Type acetaminophen 500 mg tablet 1,000 mg PO Q4H PRN Pain 02/21/22 06/04/23 Unknown History (Tylenol Extra Strength) mecobalamin (vitamin B12) 1,000 1,000 mcg PO DAILY 04/03/23 06/04/23 Unknown History mcg lozenges gabapentin 300 mg capsule 300 mg PO DAILY@0900,1200 06/04/23 06/04/23 Unknown History gabapentin 300 mg capsule 600 mg PO BEDTIME 06/04/23 06/04/23 Unknown History Physical Exam Vital Signs: Vital Signs: Last Vital Signs Temp 97.8 F 06/07/23 07:11 Pulse 94 06/07/23 07:11 Resp 16 06/07/23 07:11 BP 109/57 L 06/07/23 07:11 Pulse Ox 93 06/07/23 07:11 O2 Del Method Room Air 06/07/23 07:11 BMI result Body Mass Index 17.6 Const: General: no acute distress and patient obtunded Nutritional Appearance: thin Orientation/consciousness: patient obtunded Limitations: other limitations (Bed-bound and contracted) HEENT: Head: Yes normocephalic and Yes atraumatic Resp: Effort & Inspection: normal respiratory effort, no stridor and not tachypneic GI: Other: Abdomen is firm but nontender, no rebound, guarding or rigidity. Inspection: Yes normal to inspection : Other: Navarro catheter in place. Urine is clear with no fecalith material. Vaginal mucosa is noninflamed. No fecal material noted currently. Skin: Other: Warm, dry, no rashes Neuro: General: patient obtunded Extrem: Other: Contracted lower extremities with protective boots Results Labs 06/04/23 05:04 06/07/23 07:50 Labs: Abnormal lab results 06/07/23 Range/Units 07:50 Potassium 2.9 L D (3.3-5.1) mmol/L BUN 8 L (9-16) mg/dL Creatinine 0.49 L (0.5-1.4) mg/dL BMP 06/07/23 07:50 Sodium 142 Potassium 2.9 L D Chloride 103 Carbon Dioxide 29 BUN 8 L Creatinine 0.49 L Calcium 10.0 Urine 06/03/23 Range/Units 21:28 Urine Color Yellow Urine Appearance Cloudy Urine pH 6.5 (5.0-9.0) Ur Specific [place] >= 1.030 H (1.005-1.025) Urine Protein 30 (1+) H (Neg-Trace) mg/dL Urine Glucose (UA) Negative (Negative) mg/dL All other labs normal. Imaging Abdomen CT scan report/results: report reviewed CT scan - pelvis: report reviewed Assessment and Plan (1) Colovaginal fistula: Status: Acute Plan 50-year-old female patient with dementia, found to have feculent discharge from the vagina. Findings are possibly suggestive of a colovaginal fistula although previous CT abdomen and pelvis from [facility] dated 03/04/2023 revealed no evidence of fistula formation, inflammatory changes or malignancy. Discharge is intermittent and not noted on a daily basis. I am unclear if this is coming from we did not vagina or from outside. In either case, the patient's is not interested in pursuing further would like to follow-up as an outpatient which is reasonable. If the symptoms should worsen, GI consultation be helpful as well as repeating CT abdomen and pelvis. Will hold off on any further workup at this time. Time Spent With Patient Time: Total time managing care of this patient today ____ minutes. Procedures Date of Service Date of Service: 06/07/23
[2023-06-07] MEDS: Baclofen 10 MG TABLET PO (08:48)
[2023-06-07] MEDS: Ferrous Sulfate 324 MG TABLET.DR PO (08:48)
[2023-06-07] MEDS: Cholecalciferol (Vitamin D3) 25 MCG TABLET PO (08:48)
[2023-06-07] MEDS: 0.9 % Sodium Chloride Flush 3 ML SYRINGE IVFLUSH ×3 (08:48→21:47)
[2023-06-07] MEDS: Escitalopram Oxalate 10 MG TABLET PO (08:48)
[2023-06-07] MEDS: Folic Acid 1 MG TABLET PO (08:48)
[2023-06-07] MEDS: Gabapentin 300 MG CAPSULE PO ×2 (08:53→12:11)
[2023-06-07] MEDS: Acetaminophen 325 MG TABLET 650 MG PO (08:53)
[2023-06-07] MEDS: vancomycin HCL 1,000 MG in 0.9 % Sodium Chloride 250 ML 270 MG IV ×2 (09:08→21:45)
--- NOTE | 2023-06-07 10:24 | MHC.CLN ---
F/U PATIENT WITH STAGE II TO COCCYX AND RIGHT HIP OSTEOMYELITIS. DIET= PUREE WITH HONEY THICK LIQUIDS. SUPPLEMENT GELATEIN BID. PROVIDES 320 KCALS/40 G PROTEIN. PRODUCT IS PUDDING THICK. INTAKE VARIABLE. FOLLOW FOR INTAKE, WEIGHT, AND WOUND HEALING.
--- NOTE | 2023-06-07 10:44 | MHC.CM.PN ---
pt dcd home by amb w/ and resumprion of 05/06 care cca/iona notified of dc
--- NOTE | 2023-06-07 11:16 | P.PNIM_ITS ---
Subjective Subjective Date of Service: 06/07/23 Review of Systems Follow up hip wound and aspiration pna Nonverbal, nonambulatory Physical Exam Vital Signs: Vital Signs: Last Vital Signs Temp 97.8 F 06/07/23 07:11 Pulse 94 06/07/23 07:11 Resp 16 06/07/23 07:11 BP 109/57 L 06/07/23 07:11 Pulse Ox 93 06/07/23 07:11 O2 Del Method Room Air 06/07/23 07:11 BMI result Body Mass Index 17.6 Appearing in no acute distress, nonverbal lung sounds are clear to auscultation heart regular rate rhythm, clear S1, S2 positive bowel sounds, abdomen is soft, nontender neuro patient is alert Right hip wound Objective Data Active Medications Acetaminophen (Acetaminophen 325 Mg Tablet) 650 mg PO Q6H PRN PRN Reason: Pain, Mild (Pain Scale 1-3) Last Admin: 06/07/23 08:53 Dose: 650 mg Documented By: GLENROY Acetaminophen (Acetaminophen Supp 650 Mg Supp.Rect) 650 mg NE Q6H PRN PRN Reason: Fever Last Admin: 06/04/23 16:31 Dose: 650 mg Documented By: RINA Baclofen (Baclofen 10 Mg Tablet) 10 mg PO DAILY [facility] Last Admin: 06/07/23 08:48 Dose: 10 mg Documented By: GLENROY Docusate Sodium (Docusate Sodium 100 Mg Capsule) 100 mg PO BID [facility] Last Admin: 06/07/23 09:07 Dose: Not Given Documented By: GLENROY Non-Admin Reason: loose stool Enoxaparin Sodium (Enoxaparin Sodium 40 Mg/0.4 Ml Syringe) 40 mg SUBCUT Q24H [facility] Last Admin: 06/06/23 21:32 Dose: 40 mg Documented By: GERDA Escitalopram Oxalate (Escitalopram Oxalate 10 Mg Tablet) 10 mg PO DAILY [facility] Last Admin: 06/07/23 08:48 Dose: 10 mg Documented By: GLENROY Ferrous Sulfate (Ferrous Sulfate 324 Mg Tablet.) 324 mg PO DAILY [facility] Last Admin: 06/07/23 08:48 Dose: 324 mg Documented By: GLENROY Folic Acid (Folic Acid 1 Mg Tablet) 1 mg PO DAILY [facility] Last Admin: 06/07/23 08:48 Dose: 1 mg Documented By: GLENROY Gabapentin (Gabapentin 300 Mg Capsule) 300 mg PO DAILY@0900,1200 [facility] Last Admin: 06/07/23 08:53 Dose: 300 mg Documented By: GLENROY Gabapentin (Gabapentin 300 Mg Capsule) 600 mg PO BEDTIME [facility] Last Admin: 06/06/23 21:33 Dose: 600 mg Documented By: GERDA Vancomycin HCl 1,000 mg/ (Sodium Chloride) 270 mls @ 270 mls/hr IV Q12H [facility] Last Infusion: 06/07/23 10:43 Dose: 0 mls/hr Documented By: GLENROY Levothyroxine Sodium (Levothyroxine Sodium 100 Mcg Tablet) 100 mcg PO DAILY@0600 [facility] Last Admin: 06/07/23 06:19 Dose: 100 mcg Documented By: GERDA Loratadine (Loratadine 10 Mg Tablet) 10 mg PO DAILY PRN PRN Reason: allergy symptoms Melatonin (Melatonin 3 Mg Tablet) 6 mg PO BEDTIME PRN PRN Reason: Insomnia Ondansetron HCl (Ondansetron Hcl 4 Mg/2 Ml Vial) 4 mg IVPUSH Q8H PRN PRN Reason: Nausea and Vomiting Pharmacy Consult (Consult Rx Perform Med Rec) 1 each MISCELLANE ONCE PRN PRN Reason: Consult order Pharmacy Consult (Consult Rx Vancomycin Dosing) 1 each MISCELLANE DAILY PRN PRN Reason: Consult order Polyethylene Glycol (Polyethylene Glycol 3350 17 Gm Powd.Pack) 17 gm PO DAILY [facility] Last Admin: 06/07/23 09:07 Dose: Not Given Documented By: GLENROY Non-Admin Reason: loose stool Sodium Chloride (0.9 % Sodium Chloride Flush 3 Ml Syringe) 3 ml IVFLUSH QSHIFT [facility] Last Admin: 06/07/23 08:48 Dose: 3 ml Documented By: GLENROY Vitamin D (Cholecalciferol (Vitamin D3) 25 Mcg Tablet) 25 mcg PO DAILY [facility] Last Admin: 06/07/23 08:48 Dose: 25 mcg Documented By: GLENROY Labs 06/04/23 05:04 06/07/23 07:50 Labs: Laboratory Results - last 24 hr 06/07/23 06/07/23 07:50 07:50 Anion Gap 13 Estim Creat Clear Calc 91.8 Estimated GFR > 60 Random Glucose 106 Calcium 10.0 Random Vancomycin 17.8 Assessment and Plan (1) Sepsis: Status: Acute Plan This is a 58-year-old female with pertinent history dementia, hypothyroidism, heart block s/p PPM, history of right hip osteomyelitis with MRSA who was brought to the emergency department by who is the mold designer evaluation of lethargy and decreased responsiveness. Hypokalemia replete follow BMP Ecoli UTI likely source of sepsis continue Rocephin for now Right hip wound with purulent drainage, unspecified. chronic Not likely the source of sepsis hx of MRSA s/p Vancomycin Blood culture negative after 48 hours Imaging with sinus tract and chronic osteomyelitis, seen by ortho>? no surgical procedure at this time for chronic seroma of the right hip, continue wound care Feculent discharge Vaginal, possibly suggestive of colovaginal fistula Seen and evaluated by General surgery> intermittent discharge and on clear if coming from vagina or other area, at this time no surgical intervention needed at this time Aspiration pna rocephin supplemental oxygen as needed puree diet and honey thick liquids severe Sepsis . Resolved Resuscitated with IV crystalloids. Secondary to right hip wound infection Fever, tachycardia, tachypnea, lactic acidosis Continue IV antibiotics Hypothyroidism.? On Synthroid Dementia.? Maintain sleep-wake cycle Sacral decubitus wound.? Consulting Wound Care.? Frequent change in position DVT prophylaxis:? Lovenox Full code.? Discussed with at bedside Attending Dr. Yimi John. Plan for discharge home when medically clear, normal potassium continued hospital stay for IV antibiotics Time Spent With Patient Time: Total time managing care of this patient today ____ minutes. Quality Stroke Does the patient have a stroke diagnosis?: No VTE Prior VTE?: No VTE Risk Level:: Medical - moderate - high VTE Device Contraindication: Treatment Not Indicated VTE Drug Contraindication: N/A - Med Ordered
--- NOTE | 2023-06-07 11:52 | MHC.CM.PN ---
pt lives alone has no servceis ,is indepedent it is not anticapated that servceis will be needed home no servcies
--- NOTE | 2023-06-07 11:55 | MHC.CM.PN ---
dc cancelled amb put on will call ,pts potassium too high
[2023-06-07] MEDS: Potassium Chloride Packet 20 MEQ PACKET 40 MEQ PO (12:12)
[2023-06-07 15:01] VITALS: BP 132/68; PULSE 82; RESP 14; TEMP 36.2; O2SAT 97
--- NOTE | 2023-06-07 17:13 | MHC.SLORD ---
Speech Language Pathology Order Status: Pt refused PO trials, stating, I'm not hungry. Pt currently on pureed solids (NDD1) with honey thick liquids. 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
--- NOTE | 2023-06-07 17:42 | HO.WOUNDCONS ---
History of Present Illness Data of Consult Service Date: 06/07/23 Requesting physician: Chichi Khan Primary Care Provider: Marry Campuzano MD HPI Reason for consult: Right hip wound This is a 58-year-old female with pertinent history dementia, hypothyroidism, heart block s/p PPM, history of right hip osteomyelitis with MRSA who was brought to the emergency department by who is the senior lead java developer evaluation of lethargy and decreased responsiveness. Patient is known to us and wound care center for her right hip wound and decubitus wound. She had removal of her hip bones and now has a large space area here. She has been seen by Orthopedic surgery who do not feel like there needs to be anything else done. There were initially going to do an I&D but now have suggested just wound management. [facility] Medical History Abnormal EKG Abnormal urine odor Balance disorder Closed dislocation of right hip Closed hip fracture Dementia Dementia Dementia Dislocation, hip closed Displaced fracture of right femoral neck Elevated LFTs Fever Hip dislocation, right History of pacemaker Hypothyroidism Lactose intolerance Left leg weakness Leukocytosis (leucocytosis) Memory loss Osteomyelitis of right hip Pacemaker Pre-op evaluation Preoperative cardiovascular examination PTSD (post-traumatic stress disorder) Rash Shortness of breath Sinus pause Symptomatic bradycardia Syncope Tobacco dependence Urinary incontinence Visit for wound check Family History Mother Unknown family medical history Father Unknown family medical history Surgical History History of hemiarthroplasty of right hip Hx of total hip arthroplasty No pertinent past surgical history Status post hip hemiarthroplasty Social History Household Members: Spouse Housing: Apartment Housing Other:: From [facility] Do you presently have visiting nurse or other home services: Yes ([employer]GER's) Unable to assess alcohol history related to: Unknown Alcohol intake: never Patient Tobacco Use Status: Former Tobacco user Tobacco use type: Cigarette Cigarettes Per Day: 5.0 Years Smoked: since teen years per pt e-Cigarette/Vaping Use: Never Used Second Hand Smoke Exposure: Yes Substance Use Type: Marijuana Advance Directives Date on File: 06/16/21 service: Yes Current occupational status: disabled Current occupation: rt handed Cognitive needs: Yes Hearing needs: No Vision needs: Yes Meds Allergies Allergy/AdvReac Type Severity Reaction Status Date / Time [place] nut Allergy Unknown Verified 04/03/23 14:11 lactose Allergy Diarrhea Verified 04/03/23 14:11 Active Medications: Current Medications Acetaminophen (Acetaminophen 325 Mg Tablet) 650 mg PO Q6H PRN PRN Reason: Pain, Mild (Pain Scale 1-3) Last Admin: 06/07/23 08:53 Dose: 650 mg Acetaminophen (Acetaminophen Supp 650 Mg Supp.Rect) 650 mg [place] Q6H PRN PRN Reason: Fever Last Admin: 06/04/23 16:31 Dose: 650 mg Baclofen (Baclofen 10 Mg Tablet) 10 mg PO DAILY [facility] Last Admin: 06/07/23 08:48 Dose: 10 mg Docusate Sodium (Docusate Sodium 100 Mg Capsule) 100 mg PO BID [facility] Last Admin: 06/07/23 09:07 Dose: Not Given Enoxaparin Sodium (Enoxaparin Sodium 40 Mg/0.4 Ml Syringe) 40 mg SUBCUT Q24H [facility] Last Admin: 06/06/23 21:32 Dose: 40 mg Escitalopram Oxalate (Escitalopram Oxalate 10 Mg Tablet) 10 mg PO DAILY [facility] Last Admin: 06/07/23 08:48 Dose: 10 mg Ferrous Sulfate (Ferrous Sulfate 324 Mg Tablet.Dr) 324 mg PO DAILY [facility] Last Admin: 06/07/23 08:48 Dose: 324 mg Folic Acid (Folic Acid 1 Mg Tablet) 1 mg PO DAILY [facility] Last Admin: 06/07/23 08:48 Dose: 1 mg Gabapentin (Gabapentin 300 Mg Capsule) 300 mg PO DAILY@0900,1200 [facility] Last Admin: 06/07/23 12:11 Dose: 300 mg Gabapentin (Gabapentin 300 Mg Capsule) 600 mg PO BEDTIME [facility] Last Admin: 06/06/23 21:33 Dose: 600 mg Vancomycin HCl 1,000 mg/ (Sodium Chloride) 270 mls @ 270 mls/hr IV Q12H [facility] Last Infusion: 06/07/23 10:43 Dose: Infused Levothyroxine Sodium (Levothyroxine Sodium 100 Mcg Tablet) 100 mcg PO DAILY@0600 [facility] Last Admin: 06/07/23 06:19 Dose: 100 mcg Loratadine (Loratadine 10 Mg Tablet) 10 mg PO DAILY PRN PRN Reason: allergy symptoms Melatonin (Melatonin 3 Mg Tablet) 6 mg PO BEDTIME PRN PRN Reason: Insomnia Ondansetron HCl (Ondansetron Hcl 4 Mg/2 Ml Vial) 4 mg IVPUSH Q8H PRN PRN Reason: Nausea and Vomiting Pharmacy Consult (Consult Rx Perform Med Rec) 1 each MISCELLANE ONCE PRN PRN Reason: Consult order Pharmacy Consult (Consult Rx Vancomycin Dosing) 1 each MISCELLANE DAILY PRN PRN Reason: Consult order Polyethylene Glycol (Polyethylene Glycol 3350 17 Gm Powd.Pack) 17 gm PO DAILY [facility] Last Admin: 06/07/23 09:07 Dose: Not Given Sodium Chloride (0.9 % Sodium Chloride Flush 3 Ml Syringe) 3 ml IVFLUSH QSHIFT [facility] Last Admin: 06/07/23 08:48 Dose: 3 ml Vitamin D (Cholecalciferol (Vitamin D3) 25 Mcg Tablet) 25 mcg PO DAILY [facility] Last Admin: 06/07/23 08:48 Dose: 25 mcg Home Medications Medication Instructions Recorded Confirmed Last Taken Type acetaminophen 500 mg tablet 1,000 mg PO Q4H PRN Pain 02/21/22 06/04/23 Unknown History (Tylenol Extra Strength) mecobalamin (vitamin B12) 1,000 1,000 mcg PO DAILY 04/03/23 06/04/23 Unknown History mcg lozenges gabapentin 300 mg capsule 300 mg PO DAILY@0900,1200 06/04/23 06/04/23 Unknown History gabapentin 300 mg capsule 600 mg PO BEDTIME 06/04/23 06/04/23 Unknown History Physical Exam Vital Signs and Narrative: Vital Signs: Last Vital Signs Temp 97.2 F 06/07/23 15:01 Pulse 82 06/07/23 15:01 Resp 14 06/07/23 15:01 BP 132/68 06/07/23 15:01 Pulse Ox 97 06/07/23 15:01 O2 Del Method Room Air 06/07/23 15:01 BMI result Body Mass Index 17.6 Extrem: Other: Right hip has purulent drainage coming from the wound with about 0.5 cm x 0.5 cm opening. It goes about 2-1/2 cm deep the surrounding skin looks good Results Labs 06/04/23 05:04 06/07/23 07:50 Labs: Laboratory Results - last 24 hr 06/07/23 06/07/23 07:50 07:50 Anion Gap 13 Estim Creat Clear Calc 91.8 Estimated GFR > 60 Random Glucose 106 Calcium 10.0 Random Vancomycin 17.8 Assessment and Plan (1) Osteomyelitis of right hip: Status: Acute Plan 58-year-old female with multiple medical issues. She came in very ill from a UTI and septic but much improved. She has chronic osteo of this right hip area and as per Orthopedic surgery there is nothing else to do. With consider wound management with 1/2 inch plain gauze dressing done daily. She can follow-up with us in wound care. Infectious Diseases to come up with a plan in regards to antibiotic treatment. I do not think she is a good candidate for HBO unfortunately. Time Spent With Patient Time: Total time managing care of this patient today ____ minutes.
[2023-06-07 19:47] VITALS: BP 127/68; PULSE 91; RESP 18; TEMP 36.1; O2SAT 94
[2023-06-07] MEDS: Docusate Sodium 100 MG CAPSULE PO (20:42)
[2023-06-07] MEDS: Gabapentin 300 MG CAPSULE 600 MG PO (20:43)
[2023-06-07] MEDS: Enoxaparin Sodium 40 MG/0.4 ML SYRINGE SUBCUT (21:48)
[2023-06-08 04:00] VITALS: BP 117/62; PULSE 81; RESP 16; TEMP 36.2; O2SAT 92
[2023-06-08] MEDS: Levothyroxine Sodium 100 MCG TABLET PO (06:09)
[2023-06-08 07:02] VITALS: BP 118/66; PULSE 85; RESP 18; TEMP 37.2; O2SAT 95
[2023-06-08 08:10] LABS: Vancomycin Random 20.6 mcg/mL (15-20)
[2023-06-08 08:11] LABS: Anion Gap 18 (12-20); Blood Urea Nitrogen 7 mg/dL (9-16); Calcium 9.9 mg/dL (8.4-10.2); Carbon Dioxide 25 mmol/L (22-29); Chloride 103 mmol/L (96-108); Estimated Glomerular Filt Rate > 60; Glucose Random 99 mg/dL (60-115); Potassium 3.5 mmol/L (3.3-5.1); Sodium 142 mmol/L (135-145)
--- NOTE | 2023-06-08 08:27 | HE.PHANOTE ---
RE: vanco Trough on 06/08 came back high at 20.6; held AM dose and put in another level draw for 1999. Put in dose for 750mg Q12H with predicted AUC 443mg/L, trough of 13. Will adjust as necessary
[2023-06-08] MEDS: polyethylene glycoL 3350 17 GM POWD.PACK PO (08:41)
[2023-06-08] MEDS: Docusate Sodium 100 MG CAPSULE PO (08:41)
[2023-06-08] MEDS: Ferrous Sulfate 324 MG TABLET.DR PO (08:41)
[2023-06-08] MEDS: Cholecalciferol (Vitamin D3) 25 MCG TABLET PO (08:41)
[2023-06-08] MEDS: Folic Acid 1 MG TABLET PO (08:41)
[2023-06-08] MEDS: Baclofen 10 MG TABLET PO (08:42)
[2023-06-08] MEDS: 0.9 % Sodium Chloride Flush 3 ML SYRINGE IVFLUSH (08:45)
[2023-06-08] MEDS: Acetaminophen 325 MG TABLET 650 MG PO (10:14)
[2023-06-08] MEDS: Escitalopram Oxalate 10 MG TABLET PO (10:17)
[2023-06-08] MEDS: Gabapentin 300 MG CAPSULE PO ×2 (10:43→13:14)
--- NOTE | 2023-06-08 11:23 | P.DS_ITS ---
DS: Providers Provider Date of Service: 06/08/23 Date of admission: 06/03/23 22:42 Date of discharge: 06/08/23 Primary care physician: Marry Campuzano MD Consults: 06/04/23 04:07 Consult to Infectious Diseases [place]ine [place] [facility] [facility] [place] Reason for consultation: Chronic osteomyelitis Consult to Orthopedics Routine Consulting [place] [facility] [place] Reason for consultation: Infection of femur with sinus tract 06/06/23 13:34 Consult to Wound Care Routine Consulting Provider: Nivia Perez Reason for consultation: right hip wound 06/07/23 07:17 Consult to General Surgery Routine Consulting [place] [facility] Reason for consultation: stool leaking from vagina Attending physician on discharge: Bull Geller Discharging clinician: Priya Clayton DS: Diagnosis Discharge Diagnosis (1) Sepsis: Status: Acute (2) UTI (urinary tract infection): Status: Acute (3) Pneumonia: Status: Acute DS: Summary Hospital Course Hospital Course: From H&P on day of admission This is a 58-year-old female with pertinent history dementia, hypothyroidism, heart block s/p PPM, history of right hip osteomyelitis with MRSA who was brought to the emergency department by who is the rv mechanic evaluation of lethargy and decreased responsiveness.? As per the , patient is nonverbal at baseline due to dementia.? On the day of presentation he noticed that she was not eating and was drowsy.? He suspected infection and hence got the patient to the ER.? States he takes care of her at home.? He states she has a history of infection and has used vancomycin multiple times in the past.? Noticed increased drainage from the right hip wound which was foul smelling.? Unable to obtain review of systems. In the emergency department, patient was found to be septic severe Sepsis .? initially met criteria with Fever, tachycardia, tachypnea, lactic acidosis. likely secondary to UTI and pneumonia. She has improved with antibiotics. She has been afebrile for greater than 48 hours, tachycardia and tachypnea have resolved. Leukocytosis appears to be somewhat quadrant. Urine culture grew E coli sensitive to ceftriaxone, she will be discharged home to complete course of Ceftin. Blood cultures have remained negative. For chronic right hip wound, imaging showed sinus tract and chronic osteomyelitis, she was seen by Orthopedic surgery no surgical procedure required for chronic seroma of the right hip. Recommended to continue local wound care. She was seen by wound care who recommended outpatient follow-up in the Wound Care Clinic. For pneumonia, Possible component of aspiration. She was seen by speech who recommended NDDi with honey thick liquids initially but on the day of discharge she was able to tolerate thin liquids so she will be discharged back on her ba seline pureed diet and thin liquids. Hypokalemia replaced and improved. Feculent discharge Vaginal, possibly suggestive of colovaginal fistula. she was seen and evaluated by General surgery> intermittent discharge and unclear if coming from vagina or other area, at this time no surgical intervention needed. recommend outpatient follow up. Time Spent with Patient Time attestation: Total time managing care of this patient today ____ minutes. Discharge coordination time: Greater than 30 minutes Quality: Safe Use of Opioids Does Pt have an Active Cancer Diagnosis on the Problem List?: No Quality: Stroke Does the patient have a stroke diagnosis?: No Physical Exam Vital Signs: Vital Signs: Last Vital Signs Temp 98.9 F 06/08/23 07:02 Pulse 85 06/08/23 07:02 Resp 18 06/08/23 07:02 BP 118/66 06/08/23 07:02 Pulse Ox 95 06/08/23 07:02 O2 Del Method Room Air 06/08/23 07:02 BMI result Body Mass Index 17.6 Const: Other: able to answer some yes or no questions General: cooperative, comfortable, no acute distress, alert and awake Resp: Effort & Inspection: normal respiratory effort, no respiratory distress and no use of accessory muscles Cardio: Rate: regular rate Heart sounds: S1 normal heart sound present and S2 normal heart sound present GI: Inspection: No distended Palpation (GI): Soft to palpation and nontender Skin: Other: right hip wound, small open area no surrounding erythema Extrem: Other: b/l lower extremity contractures DS: Data Data Completed and Pending Completed studies during hospitalization [Text1]: Procedures Insertion of Infusion Device into Superior Vena Cava, Percutaneous Approach (08/03/21) Insertion of Pacemaker Lead into Right Atrium, Percutaneous Approach (06/09/21) Insertion of Pacemaker Lead into Right Ventricle, Percutaneous Approach (06/09/21) Insertion of Pacemaker, Dual Chamber into Chest Subcutaneous Tissue and Fascia, Open Approach (06/09/21) Removal of Synthetic Substitute from Right Hip Joint, Femoral Surface, Open Approach (08/03/21) Removal of Synthetic Substitute from Right Hip Joint, Open Approach (07/23/21) Replacement of Right Hip Joint with Synthetic Substitute, Uncemented, Open Approach (07/23/21) Replacement of Right Hip Joint, Femoral Surface with Synthetic Substitute, Uncemented, Open Approach (06/09/21) Revision of Synthetic Substitute in Right Hip Joint, External Approach (07/07/21) Revision of Synthetic Substitute in Right Hip Joint, Femoral Surface, Open Approach (07/20/21) Transfusion of Nonautologous Red Blood Cells into Peripheral Vein, Percutaneous Approach (08/03/21) Labs on day of discharge: Laboratory Results - last 24 hr 06/08/23 06/08/23 07:41 07:41 Sodium 142 Potassium 3.5 D Chloride 103 Carbon Dioxide 25 Anion Gap 18 BUN 7 L Creatinine 0.50 Estim Creat Clear Calc 90.0 Estimated GFR > 60 Random Glucose 99 Calcium 9.9 Random Vancomycin 20.6 H Preliminary micro results at discharge 06/03/23 21:02 Blood Culture - Preliminary Blood - Venous No growth after 48 hours. Blood Culture - Preliminary No growth after 48 hours. 06/03/23 21:02 Blood Culture - Preliminary Blood - Venous No growth after 48 hours. Discharge Plan Discharge Anticipated Discharge Date/Time: 06/07/23 11:14 Patient Disposition: Home, Self-Care Discharge Diagnosis: UTI pneumonia chronic osteomyelitis right hip Referrals: [facility] 05/06 care [Other] - 1 Week Marry Campuzano MD [Primary Care Provider] - 1 Week Nivia Perez MD [Physician] - 1 Week Discharge Medications: New cefuroxime axetil 500 mg tablet 500 mg PO Q12H 7 Days Qty: 14 0RF doxycycline hyclate 100 mg tablet 100 mg PO BID 3 Days Qty: 6 0RF Continued polyethylene glycol 3350 [Miralax] 17 gram powder in packet 17 g PO DAILY Qty: 30 4RF ferrous sulfate 325 mg (65 mg iron) tablet,delayed release (DR/EC) 325 mg PO DAILY Qty: 90 0RF Zyrtec 10 mg capsule 10 mg PO DAILY PRN (Reason: allergy symptoms) Qty: 90 1RF levothyroxine 100 mcg tablet 100 mcg PO DAILY Qty: 90 3RF gabapentin 300 mg capsule 600 mg PO BEDTIME gabapentin 300 mg capsule 300 mg PO DAILY@0900,1200 Instant Food Thickener Powder See Rx Instructions PO TID Qty: 284 2RF Rx Instructions: 1 1/2 tsp to 1/2 cup liquid orally 3 times a day; acetaminophen [Tylenol Extra Strength] 500 mg tablet 1,000 mg PO Q4H PRN (Reason: Pain) folic acid 1 mg tablet 1 mg PO DAILY Qty: 90 3RF escitalopram oxalate 10 mg tablet 10 mg PO DAILY Qty: 90 3RF baclofen 10 mg tablet 10 mg PO DAILY Qty: 90 3RF cholecalciferol (vitamin D3) 25 mcg (1,000 unit) capsule 25 mcg PO DAILY Qty: 90 3RF docusate sodium 100 mg capsule 100 mg PO BID 90 Days Qty: 180 2RF mecobalamin (vitamin B12) 1,000 mcg lozenge 1,000 mcg PO DAILY Rx Instructions: allow to dissolve in mouth OR may chew lightly before swallowing No Action (DME) roho seat cushion See Rx Instructions .Route .MEDSUPPLY Qty: 1 0RF Rx Instructions: As directed (DME) powered recliner chair See Rx Instructions .Route .MEDSUPPLY Qty: 1 0RF Rx Instructions: As directed (DME) Air mattress overlay Misc See Rx Instructions .Route Qty: 1 0RF Rx Instructions: As directed (DME) Adult disposable briefs Large See Rx Instructions .Route .MEDSUPPLY Qty: 200 6RF Rx Instructions: Pull-ups , adult disposable briefs. (DME) body wipes See Rx Instructions .Route .MEDSUPPLY Qty: 1200 3RF Rx Instructions: As directed (DME) disposable bed pads See Rx Instructions .Route .MEDSUPPLY Qty: 100 5RF Rx Instructions: As directed (DME) disposable gloves [Vinyl Gloves] Misc See Rx Instructions .Route Qty: 200 5RF Rx Instructions: As directed (DME) gauze bandage 4 X 4 bandage See Rx Instructions .Route Qty: 1200 0RF Rx Instructions: As directed (DME) adhesive tape [[employer]] 1 X 10 -yard tape See Rx Instructions .Route Qty: 2 0RF Rx Instructions: As directed (DME) adhesive tape [[employer]] 1 X 10 -yard tape See Rx Instructions .Route Qty: 2 0RF Rx Instructions: As directed (DME) gauze bandage 4 X 4 bandage See Rx Instructions .Route Qty: 1200 0RF Rx Instructions: As directed (DME) gauze bandage 4 X 4 bandage See Rx Instructions .Route Qty: 1200 0RF Rx Instructions: As directed (DME) adhesive tape 1 X 10 -yard tape See Rx Instructions .Route Qty: 2 0RF Rx Instructions: As directed (DME) DuoDERM CGF Dressing 8 X 12 bandage See Rx Instructions .Route Qty: 5 0RF Rx Instructions: As directed (DME) nebulizers Misc See Rx Instructions .Route Qty: 1 0RF Rx Instructions: 1 bid Discharge Orders: Discharge Order (Routine); Ordered 06/08/23 Ordered By: Priya Clayotn Diet: Advance to usual diet Activity on Discharge: As tolerated Stand Alone Forms: Patient Portal Discharge page Care Plan Goals: see below Health Concerns: sepsis secondary to UTI and pneumonia low potassium. improved chronic right hip wound Plan of Treatment: complete course of antibiotics for UTI and pneumonia Recommend outpatient follow-up in Wound Care Clinic for chronic wounds call to schedule follow-up appointment with PCP resume baseline diet of pureed food with thin liquids. continue aspiration precautions Assessment: see discharge summary
--- NOTE | 2023-06-08 12:31 | MHC.CM.PN ---
IMM 06/08/23 Patient is discharged to home today. [employer]AL[employer] TE[employer] services with resume. Patient/CG declined VNA. S.O. is competent to perform wound care. [facility] has been notified of the discharge. Patient will transport via BLS. training personnel supervisor is booked for 1:30pm
--- NOTE | 2023-06-08 13:28 | MHC.SL.SWA ---
Speech Pathologist Impression: Risk of Aspiration Due to: Neurological Condition Reduced Cognition Dysphasia Diet Status: Recommend UPGRADE liquids to THIN, continue on PUREE (NDD!) Pills crushed in puree. Liquid Consistency and Strategies for Safe Swallow: Liquid Intake Recommendation: Thin Liquid Intake Strategies: Small Sips Solid Food Consistency: Dietary Recommendations: Pureed (NDD1) Additional Modifications to Solid Foods: Recommend controlled cup sip or controlled straw sip for liquids. Discontinue if any signs of aspiration (coughing, throat clearing, wet voice after swallow). Patient must be positioned well when eating or drinking. Oral Medication Intake: Crushed with Puree Please contact the pharmacy regarding appropriate crushable or liquid drug formulations that are available whenever modified delivery is recommended. Compensatory Strategies and Precautions to be Taken for Safe Swallow: Sitting Upright (90 deg) Liquids from Cup Small Bites and Sips Alternate Liquids/Solids Supervision While Eating and Drinking for Safe Swallow: Total Assistance (1:1) Foods to Avoid: Swallowing Recommended Treatments: Compens. Strategy Educat. Recommendation for Speech: Inpatient Speech Therapy Comment: Patient seen immediately before lunch then observed for part of the lunch meal. Patient had been repositioned in bed, but still severely contracted and had difficulty with head of bed at 90 degrees. Patient tolerated head of bed at 70 Degrees. Patient's primary caregiver was in room, reported that she had been eating great at all meals. Evident at bedside were thin liquids, including gingerale and a juice pouch with straw which caregiver reported having given, stating that he had been encouraged by medical staff to do so. OUTSIDE BARREL LATHE OPERATOR first trialed nectar thick juice by tsp and controlled cup sip, with patient containing bolus well orally, mild delay propelling bolus and very mild delay initiating swallow noted, no clinical signs of aspiration on several trials at this consistency. As caregiver had been providing liquids by straw, patient was given sips of NT liquid by straw, with patient producing adequate suction to propel liquid and slightly more timely swallow noted, no clinical signs of aspiration. Patient was then given sip of thin apple juice by spoon and by cup sip, again with good containment and oral management, mild delay of swallow, no clinical signs of aspiration. Patient was then observed taking sips with straw from juice package, with patient requiring some cuing to take small sips, producing a swallow chained with the sip, no clinical signs of aspiration. Discussed with caregiver returning patient to baseline of thin liquids with clear guidelines regarding aspiration precautions and how to housekeeping aid if patient is having difficulties. Provided caregiver with sample of thickening agent to take home, in the event patient evidences any difficulty or decline in function. Plan is to D/C patient to home later today. Recommend UPGRADE liquids to THIN, continue on PUREE (NDD!) Pills crushed in puree. Recommend controlled cup sip or controlled straw sip for liquids. Discontinue if any signs of aspiration (coughing, throat clearing, wet voice after swallow). Patient must be positioned well when eating or drinking. Recommendations sent by secure text to , RN, RD and discussed with caregiver Frequency/Duration: Date Range for Service Req: Timeline to reassess: Electrical Sign Servicer Clinican/Clinical Fellow: No Supervisory Statement: I have reviewed and agree with the student/clinical fellow's documentation: N/A Speech Language Pathologist: Sanjana Wheat M.A., CCC-OUTSIDE BARREL LATHE OPERATOR
== END 2023-06-08 13:53 | disposition home or self-care (01) | DRG 871 ==
LOC: HO.ED 21:59 → HO.EDOVER 22:53 → HO.S3 06-04 07:30
PROVIDERS: Nurse Practitioner Acute Care; Admitting Provider Student in an Organized Health Care Education/Training Program; Emergency Provider Emergency Medicine; PCP Internal Medicine; Visit Provider Physician Assistant Medical
DX: A41.9 Sepsis, unspecified organism (principal); J69.0 Pneumonitis due to inhalation of food and vomit; L89.153 Pressure ulcer of sacral region, stage 3; N39.0 Urinary tract infection, site not specified; E87.21 Acute metabolic acidosis; N82.3 Fistula of vagina to large intestine; M86.48 Chronic osteomyelitis with draining sinus, other site; R65.20 Severe sepsis without septic shock; B96.20 Unspecified Escherichia coli [E. coli] as the cause of diseases classified elsewhere; E03.9 Hypothyroidism, unspecified; I45.9 Conduction disorder, unspecified; Z95.0 Presence of cardiac pacemaker; Z86.14 Personal history of Methicillin resistant Staphylococcus aureus infection; Z87.891 Personal history of nicotine dependence; Z79.890 Hormone replacement therapy; Z79.899 Other long term (current) drug therapy
CPT/HCPCS: 36415; 71045; 73700; 80048; 80053; 80202; 81001; 82565; 82947; 83605; 85025; 87040; 87086; 87088; 87186; 92526; 92610; 93005; 99285; C1758; J0295; J0696; J1650; J3370

== ENCOUNTER → 2023-06-03 20:59 | Outpatient (BNV) | payer OTHER, SELFPAY | PROVIDERS: Admitting Provider Student in an Organized Health Care Education/Training Program; Emergency Provider Emergency Medicine; PCP Internal Medicine; Visit Provider Internal Medicine Cardiovascular Disease | DX: R00.0 Tachycardia, unspecified (principal) | CPT/HCPCS: 93010 ==

== ENCOUNTER → 2023-06-03 22:42 | Outpatient (BNV) | payer OTHER, SELFPAY | PROVIDERS: Admitting Provider Student in an Organized Health Care Education/Training Program; Emergency Provider Emergency Medicine; PCP Internal Medicine; Visit Provider Physician Assistant | DX: A41.9 Sepsis, unspecified organism (principal) | CPT/HCPCS: 99221 ==

== ENCOUNTER → 2023-06-03 22:42 | Outpatient (BNV) | payer OTHER, SELFPAY | PROVIDERS: Admitting Provider Student in an Organized Health Care Education/Training Program; Emergency Provider Emergency Medicine; PCP Internal Medicine; Visit Provider Student in an Organized Health Care Education/Training Program | DX: A41.9 Sepsis, unspecified organism (principal); N39.0 Urinary tract infection, site not specified; J18.9 Pneumonia, unspecified organism | CPT/HCPCS: 99222; 99232; 99239 ==

== ENCOUNTER → 2023-06-03 22:42 | Outpatient (BNV) | payer OTHER, SELFPAY | PROVIDERS: Admitting Provider Student in an Organized Health Care Education/Training Program; Emergency Provider Emergency Medicine; PCP Internal Medicine; Visit Provider Surgery | DX: N82.4 Other female intestinal-genital tract fistulae (principal); M86.9 Osteomyelitis, unspecified | CPT/HCPCS: 99222; 99499 ==

== ENCOUNTER 2023-06-19 14:26 | Inpatient (IN) | payer OTHER, SELFPAY ==
[2023-06-19] VITALS (7 sets, daily range): BP systolic 77–114; BP diastolic 40–62; PULSE 75–109; RESP 15–20; TEMP 36.6–38.8; O2SAT 93–98; BMI 19.0
--- NOTE | ~2023-06-19 | CT_ITS ---
EXAMINATION: CT ABDOMEN AND PELVIS WITH CONTRAST CLINICAL INFORMATION: Sepsis. COMPARISON: None available. TECHNIQUE: Multidetector volumetric images were obtained from the superior aspect of the liver through the pubic symphysis following administration 85 mL of Omnipaque 350 intravenous contrast. Sagittal and coronal reformatted images were obtained on the technologist's workstation. Oral contrast: No This CT examination was performed using dose optimization techniques as appropriate, variously including the following: *Automated exposure control *Adjustment of mA and/or kV according to patient size (this includes techniques or standardized protocols for targeted exams where dose is matched to indication/reason for exam; i.e. extremities or head) *Use of iterative reconstruction technique DLP: 661.50 mGy-cm FINDINGS: LUNG BASES: There is bilateral lower lung field consolidation. LIVER, GALLBLADDER, AND BILIARY TREE: There is a subcentimeter hypodensity left lobe of the liver too small to characterize but likely a small cyst. The gallbladder is unremarkable with no evidence of radiopaque gallstones, gallbladder wall thickening, or obvious pericholecystic inflammatory changes. PANCREAS: Unremarkable. SPLEEN: Unremarkable. ADRENAL GLANDS: Unremarkable. KIDNEYS AND URETERS: There are scattered bilateral renal calculi measuring up to 5 mm lower pole right kidney. There is a 1.2 cm cyst midpole right kidney and a 1 cm cyst midpole left kidney. There is no hydronephrosis. BLADDER: Unremarkable. GASTROINTESTINAL TRACT: The small and large bowel are unremarkable. There is retained stool. The appendix is not seen. There is a small hiatal hernia. ABDOMINAL WALL: No significant hernia is appreciated. LYMPH NODES: Normal. VASCULAR: Unremarkable. PELVIC VISCERA: There is a 2 x 2.7 x 7.3 cm collection along the right iliacus OSSEOUS STRUCTURES: There is an apparent displaced chronic right femoral neck fracture with bone hypertrophic bone proliferation along the fracture margins as well as significant soft tissue along the joint space with acetabular remodeling as well as a posterior irregular/lobulated collection measuring 7.2 x 5.[address]/CT abdomen pelvis w IV con IMPRESSION: 1. Bilateral lower lung field consolidation possibly atelectasis and/or infiltrates. 2. Bilateral nonobstructing renal calculi. 3. There is an oval elongated collection within the right iliacus muscle measuring 2 x 2.7 x 7.3 cm. 4. Significant deformity of the right hip with apparent old fracture as well as acetabular remodeling and soft tissue within the joint associated with a posterior collection measuring 7.2 x 5.2 x 2.5 cm. The right iliacus and hip collections may represent abscesses. Correlation is needed. Fleischner guidelines were followed.
--- NOTE | ~2023-06-19 | CT_ITS ---
EXAMINATION: CT HIP WITH CONTRAST, RIGHT CLINICAL INFORMATION: Right hip tunneling wound. Osteomyelitis. COMPARISON: Multiple priors, most recent CT abdomen/pelvis dated 06/19/[address] dated 06/03/2023. TECHNIQUE: Contiguous axial CT images of the right hip were obtained following the IV administration of 85 mL Omnipaque 300. Multiplanar reformats were provided and reviewed. This CT examination was performed using dose optimization techniques as appropriate, variously including the following: *Automated exposure control *Adjustment of mA and/or kV according to patient size (this includes techniques or standardized protocols for targeted exams where dose is matched to indication/reason for exam; i.e. extremities or head) *Use of iterative reconstruction technique DLP: 943 mGy-cm FINDINGS: Diffuse irregularity with absence/blunting of the femoral head and intertrochanteric region is redemonstrated. Findings could represent postsurgical change versus chronic erosions. There is chronic superolateral subluxation of the proximal femur with prominent bony remodeling/erosion of the adjacent acetabulum. Multiple corticated ossifications adjacent to the lateral acetabulum and superior to the remnant femur, unchanged. Overall, anatomic alignment and erosions appear similar when compared to the most recent CT dated 06/03/2023. No new fracture or significant increase in previously seen erosions. Redemonstration of a soft tissue wound laterally with peripheral enhancement and a probable fistulous tract extending into the joint space. There is a large, complex joint effusion with heterogeneous peripheral enhancement. Findings are consistent with chronic septic arthritis and appear slightly more prominent when compared to the prior examination. Overall, this measures up to 11.2 cm in AP dimension (previously 10.6 cm). Multiple small osseous foci within the complex joint effusion are demonstrated. There is a peripherally enhancing collection within the right iliopsoas muscle which measures up to 5.2 x 1.4 cm (AP x ML). This was not seen on the prior CT and is consistent with intramuscular abscess formation. CT/CT hip RT w IV con IMPRESSION: 1. Redemonstration of a lateral wound and fistulous tract extending to the right hip joint space where there is a large, complex joint effusion which appears slightly more prominent when compared to the prior examination. Findings are consistent with chronic septic arthritis. 2. Diffuse bony remodeling/erosion of the femur and acetabulum as well as superolateral subluxation of the proximal femur is unchanged when compared to the prior examination. No new osseous erosion or fracture. 3. New, intramuscular abscess within the right iliopsoas muscle measuring up to 5.2 x 1.4 cm.
--- NOTE | ~2023-06-19 | XR_ITS ---
EXAMINATION: XR CHEST CLINICAL INFORMATION: Altered mental status. Recent pneumonia. COMPARISON: Multiple priors with the last chest x-ray of 06/03/2023. TECHNIQUE: Frontal view of the chest was obtained. FINDINGS: Patchy right basilar opacity noted on the chest x-ray of 06/03/2023 is not seen on the current study suggesting interval resolution. Diffuse mildly irregular interstitial lung markings are similar to that seen on multiple previous x-rays including x-rays of 06/14/2021. No definite new dense focal airspace opacities are seen. No evidence of changes of overt pulmonary edema, pneumothorax or pleural effusions. Cardiomediastinal silhouette is stable and normal. Aortic arch calcifications. Bilateral AC joint arthropathy is noted. XR/XR chest 1V IMPRESSION: Right basilar patchy airspace opacity noted on the recent chest x-ray of 06/03/2023 is not appreciated on the current examination. No convincing radiographic evidence of new airspace opacities.
--- NOTE | ~2023-06-19 | CT_ITS ---
PROCEDURE: CT GUIDED ASPIRATION CLINICAL INFORMATION: Sepsis COMPARISON: CT scan dated 06/19/2023 TECHNIQUE: Under CT guidance the skin was prepped and draped overlying the right hip. 1% Xylocaine was used for local anesthetic. The fluid collection in the right ileal psoas muscle was aspirated with an 18-gauge Chiba needle. 2 to 3 mL of dark brown fluid was aspirated and sent for Gram stain, culture and sensitivity. The severely, chronic degenerative displacement of the right hip was then approached with an 18-gauge needle from an anterior lateral approach. This was placed into the area of pseudoarthrosis. Only minimal bloody fluid was aspirated and sent for Gram stain culture and sensitivity. This CT examination was performed using dose optimization techniques as appropriate, variously including the following: *Automated exposure control *Adjustment of mA and/or kV according to patient size (this includes techniques or standardized protocols for targeted exams where dose is matched to indication/reason for exam; i.e. extremities or head) *Use of iterative reconstruction technique CT/CT guided drainage IMPRESSION: Minimal brown but clear fluid was aspirated from the right iliopsoas muscle. This was sent for Gram stain, culture and sensitivity. Only minimal bloody fluid was aspirated from the area of pseudoarthrosis of the chronically degenerative displaced right hip
--- NOTE | ~2023-06-19 | CT_ITS ---
EXAMINATION: CT HEAD WITHOUT CONTRAST CLINICAL INFORMATION: Altered mental status COMPARISON: None. TECHNIQUE: Contiguous axial imaging was performed from the skull base to vertex without intravenous administration of contrast. Coronal and sagittal reformatted images are performed at the CT scanner. [This CT examination was performed using dose optimization techniques as appropriate, variously including the following: *Automated exposure control *Adjustment of mA and/or kV according to patient size (this includes techniques or standardized protocols for targeted exams where dose is matched to indication/reason for exam; i.e. extremities or head) *Use of iterative reconstruction technique] DLP: 567 mGy-cm. FINDINGS: There is no evidence of acute intracranial hemorrhage or territorial infarction. No abnormal mass-effect or midline shift is seen. Krause to white matter differentiation is well preserved. No extra-axial fluid collections are identified. There is generalized global volume loss. There is moderate prominence of the ventricles and the sulci . There is mild hypodensity of the periventricular white matter due to chronic small vessel ischemic disease. There are vascular calcifications of the internal carotid arteries bilaterally. There is no osseous abnormality. The mastoid air cells and visualized portions of the paranasal sinuses are well-aerated. CT/CT head/brain wo IV con IMPRESSION: No acute intracranial pathology.
--- NOTE | ~2023-06-19 | XR_ITS ---
EXAMINATION: XR CHEST CLINICAL INFORMATION: Central line placement. COMPARISON: Previous of the same day. TECHNIQUE: Frontal view of the chest was obtained. FINDINGS: The lung volumes are low. The cardiomediastinal silhouette is stable. There has been interval placement of a right central line with tip at the level of the lower SVC/right atrial junction. There is mild increased interstitial markings similar to previous. There is no focal consolidation or pleural effusion. There is no pneumothorax. The bony structures are osteopenic. The soft tissues are unremarkable. XR/XR chest 1V IMPRESSION: 1. Interval placement of a right right central line with tip at the level of the lower SVC/right atrial junction. 2. No pneumothorax.
--- NOTE | 2023-06-19 14:41 | ECG_ITS ---
Test Reason : AMS Blood Pressure : / mmHG Vent. Rate : 100 BPM Atrial Rate : 100 BPM P-R Int : 158 ms QRS Dur : 088 ms QT Int : 338 ms P-R-T Axes : 036 -32 043 degrees QTc Int : 436 ms Normal sinus rhythm Left axis deviation Cannot rule out Anterior infarct (cited on or before 19-JUN-2023) Abnormal ECG When compared with ECG of 03-JUN-2023 21:08, Previous ECG has undetermined rhythm, needs review Questionable change in initial forces of Septal leads Nonspecific T wave abnormality, improved in Lateral leads Referred By: Charo Lockwood Electronically Signed By:Selvin Lou
--- NOTE | 2023-06-19 14:43 | ED.AMS ---
HPI - Altered Mental Status General Chief Complaint: Altered Mental Status Stated Complaint: UNREPSONSIVE TO VERBAL STIMULI,VSS Time Seen by Provider: 06/19/23 14:28 Source: family Mode of arrival: EMS Limitations: altered mental status History of Present Illness HPI narrative: Patient comes to the emergency room from home via ambulance. Patient came in for altered mental status. Patient's is at bedside who is the patient's healthcare proxy. The patient has history of dementia and is too somnolent to answer any questions. According to the , this morning, the patient ate breakfast and shortly after, between 09:00-930 a.m., the patient became very somnolent and barely unresponsive. Patient's states that yesterday she did the same thing but patient slept through and walk up at her baseline this morning. This time, it has been over 5 hours the patient has been the state without really waking up. Patient's states that this happens usually when she is septic. Patient was discharged from this hospital about a week and half ago for UTI sepsis, pneumonia chronic infected pressure wounds. According to the , the patient has not had any fever, vomiting or diarrhea, no URI symptoms. 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 Related Data Home Medications Medication Instructions Recorded Confirmed acetaminophen 500 mg tablet 1,000 mg PO Q4H PRN Pain 02/21/22 06/04/23 (Tylenol Extra Strength) mecobalamin (vitamin B12) 1,000 1,000 mcg PO DAILY 04/03/23 06/04/23 mcg lozenges gabapentin 300 mg capsule 300 mg PO DAILY@0900,1200 06/04/23 06/04/23 gabapentin 300 mg capsule 600 mg PO BEDTIME 06/04/23 06/04/23 Previous Rx's Medication Instructions Recorded baclofen 10 mg tablet 10 mg PO DAILY #90 tabs 02/21/22 cholecalciferol (vitamin D3) 25 25 mcg PO DAILY #90 caps 02/21/22 mcg (1,000 unit) capsule docusate sodium 100 mg capsule 100 mg PO BID 90 days #180 caps 02/21/22 escitalopram oxalate 10 mg tablet 10 mg PO DAILY #90 tabs 02/21/22 folic acid 1 mg tablet 1 mg PO DAILY #90 tabs 02/21/22 hydrocolloid dressing 8 X 12 #5 ea 02/21/22 (DuoDERM CGF Dressing) adhesive tape 1 X 10 yard #2 ea 04/13/22 adhesive tape 1 X 10 yard #2 ea 04/13/22 ([employer]) adhesive tape 1 X 10 yard #2 ea 04/13/22 ([employer]) gauze bandage 4 X 4 #1,200 ea 04/13/22 gauze bandage 4 X 4 #1,200 ea 04/13/22 gauze bandage 4 X 4 #1,200 ea 04/13/22 polyethylene glycol 3350 17 gram 17 g PO DAILY #30 ea 05/30/22 oral powder packet (Miralax) starch (thickening) (Instant Food See Rx Instructions PO TID #284 06/24/22 Thickener oral powder) grams powered recliner chair #1 ea 11/22/22 roho seat cushion #1 ea 11/22/22 ferrous sulfate 325 mg (65 mg 325 mg PO DAILY #90 tabs 12/23/22 iron) tablet,delayed release nebulizers #1 ea 01/06/23 cetirizine 10 mg capsule (Zyrtec) 10 mg PO DAILY PRN allergy 02/14/23 symptoms #90 caps Air mattress overlay #1 ea 03/03/23 Adult disposable briefs #200 ea 03/17/23 body wipes #1,200 ea 03/17/23 disposable bed pads #100 ea 03/17/23 disposable gloves (Vinyl Gloves) #200 ea 03/17/23 levothyroxine 100 mcg tablet 100 mcg PO DAILY #90 tabs 04/02/23 cefuroxime axetil 500 mg tablet 500 mg PO Q12H 7 days #14 tabs 06/08/23 doxycycline hyclate 100 mg tablet 100 mg PO BID 3 days #6 tabs 06/08/23 Allergies Allergy/AdvReac Type Severity Reaction Status Date / Time [place] nut Allergy Unknown Verified 06/19/23 14:35 lactose Allergy Diarrhea Verified 06/19/23 14:35 Review of Systems Review of Systems: Yes Unobtainable due to mental condition PMFSH Past Medical History Medical History Abnormal EKG Abnormal urine odor Balance disorder Closed dislocation of right hip Closed hip fracture Dementia Dementia Dementia Dislocation, hip closed Displaced fracture of right femoral neck Elevated LFTs Fever Hip dislocation, right History of pacemaker Hypothyroidism Lactose intolerance Left leg weakness Leukocytosis (leucocytosis) Memory loss Osteomyelitis of right hip Pacemaker Pre-op evaluation Preoperative cardiovascular examination PTSD (post-traumatic stress disorder) Rash Shortness of breath Sinus pause Symptomatic bradycardia Syncope Tobacco dependence Urinary incontinence Visit for wound check Surgical History History of hemiarthroplasty of right hip Hx of total hip arthroplasty No pertinent past surgical history Status post hip hemiarthroplasty Family History Family History Mother Unknown family medical history Father Unknown family medical history Social History Social History Household Members: Spouse Housing: Apartment Housing [facility] Do you presently have visiting nurse or other home services: Yes ([employer]) Unable to assess alcohol history related to: Unknown Alcohol intake: never Patient Tobacco Use Status: Former Tobacco user Tobacco use type: Cigarette Cigarettes Per Day: 5.0 Years Smoked: since teen years per pt Smoked in Last 30 Days: No e-Cigarette/Vaping Use: Never Used Second Hand Smoke Exposure: Yes Use of substances other than those prescribed or required for medical reasons: No Substance Use Type: Marijuana Advance Directives: Yes Advance Directives on File: Yes Advance Directives Date on File: 06/16/21 Patient : No service: Yes Current occupational status: disabled Current occupation: rt handed Cognitive needs: Yes Hearing needs: No Vision needs: Yes Physical Exam ED Vital Signs: Vital Signs - 24 hr 06/19/23 14:37 06/19/23 16:33 Temperature 98.8 F 102 F H Pulse Rate 99 Respiratory Rate 18 Blood Pressure 98/56 L Pulse Oximetry 94 Oxygen Delivery Method Room Air BMI result Body Mass Index 19.0 Const Other: Appearance: Somnolent, easily arousable but falls back asleep quickly Eyes: Pupils equal, round and reactive to light. ENT: Pharynx normal. Neck: Normal inspection. Neck supple. No lymph nodes noted. No crepitus CVS: Normal heart rate and rhythm. Pulses normal. Normal S1 and S2 Respiratory: No respiratory distress. Breath sounds normal. No Wheezing. No rales Abdomen: Soft and nontender. No rigidity. No distention. Skin: Skin warm and dry. Normal skin color. Normal skin turgor. Extremities: No lower extremity edema. No Lacerations. No Rash Neuro: Somnolent, unable to participate in cranial nerve assessment Psych: Somnolent Course Course Course Narrative: -all of patient's labs in CT scan of the head pending Medical Decision Making Medical Decision Making [facility] Narrative: -17:52, patient is urinalysis returned. Patient has a UTI. Patient's blood pressure 98/56. Also, at this time I was informed by the patient's tech that earlier today they noticed that the patient have fever of 102 F. Patient getting now rectal Tylenol. Patient also getting IV fluids and ceftriaxone. -I reviewed patient's previous records, patient has resistance to Levaquin and Bactrim -I discussed the patient with her , patient will be admitted for UTI encephalopathy. 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 06/19/23 15:44 06/19/23 15:44 Labs: Lab Results 06/19/23 06/19/23 06/19/23 Range/Units 15:44 15:44 15:44 WBC 20.9 H (4.8-10.8) X10*3/uL RBC 4.67 (4.20-5.50) X10*6/uL Hgb 12.9 (12.0-16.0) g/dl Hct 40.8 (37.0-47.0) % MCV 87.4 (80.0-98.0) fL MCH 27.6 (27.0-33.0) pg MCHC 31.6 (31.0-35.0) g/dl RDW 15.6 (11.0-16.0) % Plt Count 506 H D (160-400) X10*3/uL MPV 10.2 (9.4-12.3) fL Immature Gran % (Auto) 0.6 H (0.0-0.4) % Neut % (Auto) 80.6 H (45-73) % Lymph % (Auto) 13.6 L (20-40) % [place] % (Auto) 4.3 (2-11) % Eos % (Auto) 0.4 (0-4) % Baso % (Auto) 0.5 (0-2) % Lymph # (Auto) 2.8 (1.2-4.9) X10*3/uL [place] # (Auto) 0.9 (0.1-1.2) X10*3/uL Eos # (Auto) 0.1 (0.0-0.4) X10*3/uL Baso # (Auto) 0.1 (0.0-0.2) X10*3/uL Abs Immat Gran (auto) 0.13 H (0.00-0.03) X10*3/uL Absolute Neuts (auto) 16.9 H (2.0-8.3) x10*3/uL Absolute Nucleated RBC 0.000 (0.0-0.012) X10*3/uL Nucleated RBC % (auto) 0.0 (0.0-0.2) /100WBC PT 13.9 H (11.1-13.3) SEC INR 1.1 (0.9-1.1) VBG pH (7.32-7.43) VBG pCO2 mmHg VBG pO2 mmHg VBG HCO3 (22-26) mmol/L VBG O2 Saturation % VBG Base Excess mmol/L Sodium 137 (135-145) mmol/L Potassium 3.9 (3.3-5.1) mmol/L Chloride 104 (96-108) mmol/L Carbon Dioxide 25 (22-29) mmol/L Anion Gap 12 (12-20) BUN 12 (9-16) mg/dL Creatinine 0.54 (0.5-1.4) mg/dL Estim Creat Clear Calc 84.6 Estimated GFR > 60 Random Glucose 96 (60-115) mg/dL Lactic Acid (0.5-2.0) mmol/L Calcium 9.2 D (8.4-10.2) mg/dL Magnesium 1.9 (1.6-2.6) mg/dL Total Bilirubin 0.3 (0.0-1.0) mg/dL Direct Bilirubin 0.1 (0.0-0.5) mg/dL AST 22 (5-31) U/L ALT 18 (0-31) U/L Alkaline Phosphatase 128 H (39-117) U/L Ammonia (13-55) umol/L Troponin I High Sens (<3.5-17.0) ng/L Total Protein 6.9 (6.5-8.0) g/dL Albumin 3.3 L (3.5-5.0) g/dL TSH (0.32-4.0) uIU/mL Free T4 (0.71-1.85) ng/dL Urine Opiates Screen (Not Detect) Urine Fentanyl Screen (Not Detect) Ur Barbiturates Screen (Not Detect) Ur Phencyclidine Scrn (Not Detect) Ur Amphetamines Screen (Not Detect) U Benzodiazepines Scrn (Not Detect) Urine Cocaine Screen (Not Detect) U Marijuana (THC) Screen (Not Detect) Ethyl Alcohol mg/dL COVID-19 (BOB) (Negative) COVID-19 Clin Com Influenza Type A (GRAY) (Negative) Influenza Type B (GRAY) (Negative) Influenza A & B Note 06/19/23 06/19/23 06/19/23 Range/Units 15:44 15:44 15:44 WBC (4.8-10.8) X10*3/uL RBC (4.20-5.50) X10*6/uL Hgb (12.0-16.0) g/dl Hct (37.0-47.0) % MCV (80.0-98.0) fL MCH (27.0-33.0) pg MCHC (31.0-35.0) g/dl RDW (11.0-16.0) % Plt Count (160-400) X10*3/uL MPV (9.4-12.3) fL Immature Gran % (Auto) (0.0-0.4) % Neut % (Auto) (45-73) % Lymph % (Auto) (20-40) % [place] % (Auto) (2-11) % Eos % (Auto) (0-4) % Baso % (Auto) (0-2) % Lymph # (Auto) (1.2-4.9) X10*3/uL [place] # (Auto) (0.1-1.2) X10*3/uL Eos # (Auto) (0.0-0.4) X10*3/uL Baso # (Auto) (0.0-0.2) X10*3/uL Abs Immat Gran (auto) (0.00-0.03) X10*3/uL Absolute Neuts (auto) (2.0-8.3) x10*3/uL Absolute Nucleated RBC (0.0-0.012) X10*3/uL Nucleated RBC % (auto) (0.0-0.2) /100WBC PT (11.1-13.3) SEC INR (0.9-1.1) VBG pH (7.32-7.43) VBG pCO2 mmHg VBG pO2 mmHg VBG HCO3 (22-26) mmol/L VBG O2 Saturation % VBG Base Excess mmol/L Sodium (135-145) mmol/L Potassium (3.3-5.1) mmol/L Chloride (96-108) mmol/L Carbon Dioxide (22-29) mmol/L Anion Gap (12-20) BUN (9-16) mg/dL Creatinine (0.5-1.4) mg/dL Estim Creat Clear Calc Estimated GFR Random Glucose (60-115) mg/dL Lactic Acid 1.5 (0.5-2.0) mmol/L Calcium (8.4-10.2) mg/dL Magnesium (1.6-2.6) mg/dL Total Bilirubin (0.0-1.0) mg/dL Direct Bilirubin (0.0-0.5) mg/dL AST (5-31) U/L ALT (0-31) U/L Alkaline Phosphatase (39-117) U/L Ammonia (13-55) umol/L Troponin I High Sens < 2.7 (<3.5-17.0) ng/L Total Protein (6.5-8.0) g/dL Albumin (3.5-5.0) g/dL TSH (0.32-4.0) uIU/mL Free T4 (0.71-1.85) ng/dL Urine Opiates Screen (Not Detect) Urine Fentanyl Screen (Not Detect) Ur Barbiturates Screen (Not Detect) Ur Phencyclidine Scrn (Not Detect) Ur Amphetamines Screen (Not Detect) U Benzodiazepines Scrn (Not Detect) Urine Cocaine Screen (Not Detect) U Marijuana (THC) Screen (Not Detect) Ethyl Alcohol mg/dL COVID-19 (BOB) Negative (Negative) COVID-19 Clin Com See Note Influenza Type A (GRAY) (Negative) Influenza Type B (GRAY) (Negative) Influenza A & B Note 06/19/23 06/19/23 06/19/23 Range/Units 15:44 15:44 15:44 WBC (4.8-10.8) X10*3/uL RBC (4.20-5.50) X10*6/uL Hgb (12.0-16.0) g/dl Hct (37.0-47.0) % MCV (80.0-98.0) fL MCH (27.0-33.0) pg MCHC (31.0-35.0) g/dl RDW (11.0-16.0) % Plt Count (160-400) X10*3/uL MPV (9.4-12.3) fL Immature Gran % (Auto) (0.0-0.4) % Neut % (Auto) (45-73) % Lymph % (Auto) (20-40) % [place] % (Auto) (2-11) % Eos % (Auto) (0-4) % Baso % (Auto) (0-2) % Lymph # (Auto) (1.2-4.9) X10*3/uL [place] # (Auto) (0.1-1.2) X10*3/uL Eos # (Auto) (0.0-0.4) X10*3/uL Baso # (Auto) (0.0-0.2) X10*3/uL Abs Immat Gran (auto) (0.00-0.03) X10*3/uL Absolute Neuts (auto) (2.0-8.3) x10*3/uL Absolute Nucleated RBC (0.0-0.012) X10*3/uL Nucleated RBC % (auto) (0.0-0.2) /100WBC PT (11.1-13.3) SEC INR (0.9-1.1) VBG pH (7.32-7.43) VBG pCO2 mmHg VBG pO2 mmHg VBG HCO3 (22-26) mmol/L VBG O2 Saturation % VBG Base Excess mmol/L Sodium (135-145) mmol/L Potassium (3.3-5.1) mmol/L Chloride (96-108) mmol/L Carbon Dioxide (22-29) mmol/L Anion Gap (12-20) BUN (9-16) mg/dL Creatinine (0.5-1.4) mg/dL Estim Creat Clear Calc Estimated GFR Random Glucose (60-115) mg/dL Lactic Acid (0.5-2.0) mmol/L Calcium (8.4-10.2) mg/dL Magnesium (1.6-2.6) mg/dL Total Bilirubin (0.0-1.0) mg/dL Direct Bilirubin (0.0-0.5) mg/dL AST (5-31) U/L ALT (0-31) U/L Alkaline Phosphatase (39-117) U/L Ammonia 28 (13-55) umol/L Troponin I High Sens (<3.5-17.0) ng/L Total Protein (6.5-8.0) g/dL Albumin (3.5-5.0) g/dL TSH 0.19 L (0.32-4.0) uIU/mL Free T4 1.47 (0.71-1.85) ng/dL Urine Opiates Screen (Not Detect) Urine Fentanyl Screen (Not Detect) Ur Barbiturates Screen (Not Detect) Ur Phencyclidine Scrn (Not Detect) Ur Amphetamines Screen (Not Detect) U Benzodiazepines Scrn (Not Detect) Urine Cocaine Screen (Not Detect) U Marijuana (THC) Screen (Not Detect) Ethyl Alcohol < 10 mg/dL COVID-19 (BOB) (Negative) COVID-19 Clin Com Influenza Type A (GRAY) Negative (Negative) Influenza Type B (GRAY) Negative (Negative) Influenza A & B Note See Note 06/19/23 06/19/23 Range/Units 15:46 16:29 WBC (4.8-10.8) X10*3/uL RBC (4.20-5.50) X10*6/uL Hgb (12.0-16.0) g/dl Hct (37.0-47.0) % MCV (80.0-98.0) fL MCH (27.0-33.0) pg MCHC (31.0-35.0) g/dl RDW (11.0-16.0) % Plt Count (160-400) X10*3/uL MPV (9.4-12.3) fL Immature Gran % (Auto) (0.0-0.4) % Neut % (Auto) (45-73) % Lymph % (Auto) (20-40) % [place] % (Auto) (2-11) % Eos % (Auto) (0-4) % Baso % (Auto) (0-2) % Lymph # (Auto) (1.2-4.9) X10*3/uL [place] # (Auto) (0.1-1.2) X10*3/uL Eos # (Auto) (0.0-0.4) X10*3/uL Baso # (Auto) (0.0-0.2) X10*3/uL Abs Immat Gran (auto) (0.00-0.03) X10*3/uL Absolute Neuts (auto) (2.0-8.3) x10*3/uL Absolute Nucleated RBC (0.0-0.012) X10*3/uL Nucleated RBC % (auto) (0.0-0.2) /100WBC PT (11.1-13.3) SEC INR (0.9-1.1) VBG pH 7.48 H (7.32-7.43) VBG pCO2 31 mmHg VBG pO2 50 mmHg VBG HCO3 23 (22-26) mmol/L VBG O2 Saturation 81.0 % VBG Base Excess 0.9 mmol/L Sodium (135-145) mmol/L Potassium (3.3-5.1) mmol/L Chloride (96-108) mmol/L Carbon Dioxide (22-29) mmol/L Anion Gap (12-20) BUN (9-16) mg/dL Creatinine (0.5-1.4) mg/dL Estim Creat Clear Calc Estimated GFR Random Glucose (60-115) mg/dL Lactic Acid (0.5-2.0) mmol/L Calcium (8.4-10.2) mg/dL Magnesium (1.6-2.6) mg/dL Total Bilirubin (0.0-1.0) mg/dL Direct Bilirubin (0.0-0.5) mg/dL AST (5-31) U/L ALT (0-31) U/L Alkaline Phosphatase (39-117) U/L Ammonia (13-55) umol/L Troponin I High Sens (<3.5-17.0) ng/L Total Protein (6.5-8.0) g/dL Albumin (3.5-5.0) g/dL TSH (0.32-4.0) uIU/mL Free T4 (0.71-1.85) ng/dL Urine Opiates Screen Not Detected (Not Detect) Urine Fentanyl Screen Not Detected (Not Detect) Ur Barbiturates Screen Not Detected (Not Detect) Ur Phencyclidine Scrn Not Detected (Not Detect) Ur Amphetamines Screen Not Detected (Not Detect) U Benzodiazepines Scrn Not Detected (Not Detect) Urine Cocaine Screen Not Detected (Not Detect) U Marijuana (THC) Screen Not Detected (Not Detect) Ethyl Alcohol mg/dL COVID-19 (BOB) (Negative) COVID-19 Clin Com Influenza Type A (GRAY) (Negative) Influenza Type B (GRAY) (Negative) Influenza A & B Note Independent Interpretation I performed an independent interpretation of an: CT Scan (CT scan of the head my interpretation: No intracranial bleed) Radiology Impression Discussion of test interpretation with radiology: I have reviewed the radiologist's reading. Radiologist Impression: FINDINGS: There is no evidence of acute intracranial hemorrhage or territorial infarction. No abnormal mass-effect or midline shift is seen. Kra[place] to white matter differentiation is well preserved. No extra-axial fluid collections are identified. There is generalized global volume loss. There is moderate prominence of the ventricles and the sulci . There is mild hypodensity of the periventricular white matter due to chronic small vessel ischemic disease. There are vascular calcifications of the internal carotid arteries bilaterally. There is no osseous abnormality. The mastoid air cells and visualized portions of the paranasal sinuses are well-aerated. ? CT/CT head/brain wo IV con IMPRESSION: No acute intracranial pathology. ? Independent Historian Clinical information obtained from an independent historian. History obtained from or confirmed by: Spouse External Record Review External record reviewed: Inpatient record (Patient was seen by surgery in her previous admission, seems that patient's opted to not pursue any further treatment or the colovaginal fistula) Critical Care Time Critical Care Time Critical Care Time: Yes Total Critical Care Time: 60 Attestation: I have personally provided critical care time. Time includes review of lab data, radiology results, discussion with consultants, and monitoring for potential decompensation. Intervention performed as documented. Discharge Plan Discharge Clinical Impression: UTI (urinary tract infection), Encephalopathy Patient Disposition: Admitted As Inpatient Prescriptions: No Action polyethylene glycol 3350 [Miralax] 17 gram powder in packet 17 g PO DAILY Qty: 30 4RF (DME) roho seat cushion See Rx Instructions .Route .MEDSUPPLY Qty: 1 0RF Rx Instructions: As directed (DME) powered recliner chair See Rx Instructions .Route .MEDSUPPLY Qty: 1 0RF Rx Instructions: As directed ferrous sulfate 325 mg (65 mg iron) tablet,delayed release (DR/EC) 325 mg PO DAILY Qty: 90 0RF Zyrtec 10 mg capsule 10 mg PO DAILY PRN (Reason: allergy symptoms) Qty: 90 1RF (DME) Air mattress overlay Misc See Rx Instructions .Route Qty: 1 0RF Rx Instructions: As directed (DME) Adult disposable briefs Large See Rx Instructions .Route .MEDSUPPLY Qty: 200 6RF Rx Instructions: Pull-ups , adult disposable briefs. (DME) body wipes See Rx Instructions .Route .MEDSUPPLY Qty: 1200 3RF Rx Instructions: As directed (DME) disposable bed pads See Rx Instructions .Route .MEDSUPPLY Qty: 100 5RF Rx Instructions: As directed (DME) disposable gloves [Vinyl Gloves] Misc See Rx Instructions .Route Qty: 200 5RF Rx Instructions: As directed levothyroxine 100 mcg tablet 100 mcg PO DAILY Qty: 90 3RF (DME) gauze bandage 4 X 4 bandage See Rx Instructions .Route Qty: 1200 0RF Rx Instructions: As directed (DME) adhesive tape [[employer]] 1 X 10 -yard tape See Rx Instructions .Route Qty: 2 0RF Rx Instructions: As directed (DME) adhesive tape [[employer]] 1 X 10 -yard tape See Rx Instructions .Route Qty: 2 0RF Rx Instructions: As directed (DME) gauze bandage 4 X 4 bandage See Rx Instructions .Route Qty: 1200 0RF Rx Instructions: As directed (DME) gauze bandage 4 X 4 bandage See Rx Instructions .Route Qty: 1200 0RF Rx Instructions: As directed (DME) adhesive tape 1 X 10 -yard tape See Rx Instructions .Route Qty: 2 0RF Rx Instructions: As directed gabapentin 300 mg capsule 600 mg PO BEDTIME gabapentin 300 mg capsule 300 mg PO DAILY@0900,1200 cefuroxime axetil 500 mg tablet 500 mg PO Q12H 7 Days Qty: 14 0RF doxycycline hyclate 100 mg tablet 100 mg PO BID 3 Days Qty: 6 0RF Instant Food Thickener Powder See Rx Instructions PO TID Qty: 284 2RF Rx Instructions: 1 1/2 tsp to 1/2 cup liquid orally 3 times a day; acetaminophen [Tylenol Extra Strength] 500 mg tablet 1,000 mg PO Q4H PRN (Reason: Pain) (DME) DuoDERM CGF Dressing 8 X 12 bandage See Rx Instructions .Route Qty: 5 0RF Rx Instructions: As directed folic acid 1 mg tablet 1 mg PO DAILY Qty: 90 3RF escitalopram oxalate 10 mg tablet 10 mg PO DAILY Qty: 90 3RF baclofen 10 mg tablet 10 mg PO DAILY Qty: 90 3RF cholecalciferol (vitamin D3) 25 mcg (1,000 unit) capsule 25 mcg PO DAILY Qty: 90 3RF docusate sodium 100 mg capsule 100 mg PO BID 90 Days Qty: 180 2RF (DME) nebulizers Misc See Rx Instructions .Route Qty: 1 0RF Rx Instructions: 1 bid mecobalamin (vitamin B12) 1,000 mcg lozenge 1,000 mcg PO DAILY Rx Instructions: allow to dissolve in mouth OR may chew lightly before swallowing
[2023-06-19 15:56] LABS: VBG Base Excess 0.9 mmol/L; VBG HCO3 23 mmol/L (22-26); VBG pCO2 31 mmHg; VBG pH 7.48 (7.32-7.43); VBG pO2 50 mmHg
[2023-06-19 16:00] LABS: MANUAL DIFF FLAG NO
[2023-06-19 16:06] LABS: Basophils Absolute Auto 0.1 X10*3/uL (0.0-0.2); Basophils Percent Auto 0.5 % (0-2); Eosinophils Absolute Auto 0.1 X10*3/uL (0.0-0.4); Eosinophils Percent Auto 0.4 % (0-4); Hematocrit 40.8 % (37.0-47.0); Hemoglobin 12.9 g/dl (12.0-16.0); Imm Gran Abs Auto 0.13 X10*3/uL (0.00-0.03); Imm Gran Pct Auto 0.6 % (0.0-0.4); Lymphocytes Absolute Auto 2.8 X10*3/uL (1.2-4.9); Lymphocytes Percent Auto 13.6 % (20-40); Mean Corpuscular HGB Conc 31.6 g/dl (31.0-35.0); Mean Corpuscular Hemoglobin 27.6 pg (27.0-33.0); Mean Corpuscular Volume 87.4 fL (80.0-98.0); Mean Platelet Volume 10.2 fL (9.4-12.3); Monocytes Absolute Auto 0.9 X10*3/uL (0.1-1.2); Monocytes Percent Auto 4.3 % (2-11); Neutrophils Absolute Auto 16.9 x10*3/uL (2.0-8.3); Neutrophils Percent Auto 80.6 % (45-73); Platelet Count 506 X10*3/uL (160-400); Red Blood Count 4.67 X10*6/uL (4.20-5.50); Red Cell Distribution Width 15.6 % (11.0-16.0); White Blood Count 20.9 X10*3/uL (4.8-10.8)
[2023-06-19 16:10] LABS: Ammonia 28 umol/L (13-55)
[2023-06-19 16:13] LABS: INTERNATIONAL NORM RATIO 1.1 (0.9-1.1); Prothrombin Time 13.9 SEC (11.1-13.3)
[2023-06-19 16:14] LABS: Lactic Acid 1.5 mmol/L (0.5-2.0)
[2023-06-19 16:15] LABS: Venous Blood Gas Refer to POC result
[2023-06-19 16:19] LABS: Alanine Aminotransferase 18 U/L (0-31); Albumin Level 3.3 g/dL (3.5-5.0); Alkaline Phosphatase 128 U/L (39-117); Anion Gap 12 (12-20); Aspartate Amino Transferase 22 U/L (5-31); Bilirubin Direct 0.1 mg/dL (0.0-0.5); Bilirubin Total 0.3 mg/dL (0.0-1.0); Blood Urea Nitrogen 12 mg/dL (9-16); Calcium 9.2 mg/dL (8.4-10.2); Carbon Dioxide 25 mmol/L (22-29); Chloride 104 mmol/L (96-108); Creatinine Clr Calc Pharmacy 84.6; Estimated Glomerular Filt Rate > 60; Glucose Random 96 mg/dL (60-115); Magnesium 1.9 mg/dL (1.6-2.6); Potassium 3.9 mmol/L (3.3-5.1); Sodium 137 mmol/L (135-145); Total Protein 6.9 g/dL (6.5-8.0)
[2023-06-19 16:23] LABS: Ethanol < 10 mg/dL
[2023-06-19 16:25] LABS: Troponin-I High Sensitivity < 2.7 ng/L (<3.5-17.0)
[2023-06-19 16:39] LABS: TSH reflex Free T4 0.19 uIU/mL (0.32-4.0)
[2023-06-19 16:52] LABS: Amphetamine Screen Urine Not Detected (Not Detect); Barbiturates, Urine Not Detected (Not Detect); Benzodiazepines Screen Urine Not Detected (Not Detect); Cannabinoid Screen Urine Not Detected (Not Detect); Cocaine Screen Urine Not Detected (Not Detect); Fentanyl, urine Not Detected (Not Detect); Opiate Screen Urine Not Detected (Not Detect); Phencyclidine Screen Urine Not Detected (Not Detect)
--- NOTE | 2023-06-19 16:55 | PC.NURSE ---
urine obtained via straight cath. pt tolerated procedure well. at bedside.
[2023-06-19 17:08] LABS: IDNOW Serial# BCCEAD1C; Influenza A Negative (Negative); Influenza B2 Negative (Negative)
[2023-06-19 17:09] LABS: COVID-19 Test Negative (Negative); IDNOW Serial# 08D9AD1C
[2023-06-19 17:20] LABS: Free T4 (Free Thyroxine) 1.47 ng/dL (0.71-1.85)
--- NOTE | 2023-06-19 17:37 | MHC.EDTECH ---
pt cleaned and bed linens changed. purewick placed pt repositioned on the bed. family/caregiver in room with the patient
[2023-06-19] MEDS: Acetaminophen Supp 650 MG SUPP.RECT PR (18:00)
[2023-06-19] MEDS: cefTRIAXone sodium 1 GM in 0.9 % Sodium Chloride 50 ML IV (18:01)
[2023-06-19] MEDS: 0.9 % Sodium Chloride 2,000 ML 999 ML IVCONT (18:07)
--- NOTE | 2023-06-19 18:53 | P.HPHOSP_ITS ---
History of Present Illness Date of Service: 06/19/23 Attending physician on admission: Alonso Jj Chief Complaint: AMS 58-year-old female with history of colovaginal fistula, hypothyroidism, advanced dementia minimally verbal at baseline, complete heart block s/p PPM, history of MRSA and osteomyelitis of the right hip who is a former smoker presented to the ER earlier today via EMS for evaluation of altered mental status. History was obtained from patient's by ED provider as patient is currently nonverbal and unable to answer questions. Per the patient's , the patient is typically able to speak with him but this morning after eating breakfast became very somnolent and barely responsive. The patient went back to bed and has been barely rousable prompting him to call EMS. Of note, the patient was discharged from the hospital about 1.5 weeks ago for UTI, sepsis, pneumonia with chronic infected pressure wounds. The patient's denies any fevers, chills, vomiting, diarrhea. On arrival, patient febrile to 102, mildly tachycardic to 95, blood pressures soft but no hypotension. There is a leukocytosis of 20. Renal function baseline, electrolyte levels normal. Lactic acid 1.5. Ammonia 28, troponin below detectable limits. TSH 0.19, free T4 1.47. Urine tox screen negative. Negative for COVID-19, influenza. Head CT negative for any acute intracranial abnormality. CXR negative for any acute cardiopulmonary abnormality. UA with 2+ blood, trace leukocytes, small amount of urinary sediment and negative bacteria. CT abdomen/pelvis pending. In the ED, has received 1g IV ceftriaxone to empirically treat UTI and 2L IV NS running. Review of Systems Review of Systems: Yes Unobtainable due to mental condition and Unobtainable due to mental status [facility] Medical History Abnormal EKG Abnormal urine odor Balance disorder Closed dislocation of right hip Closed hip fracture Dementia Dementia Dementia Dislocation, hip closed Displaced fracture of right femoral neck Elevated LFTs Fever Hip dislocation, right History of pacemaker Hypothyroidism Lactose intolerance Left leg weakness Leukocytosis (leucocytosis) Memory loss Osteomyelitis of right hip Pacemaker Pre-op evaluation Preoperative cardiovascular examination PTSD (post-traumatic stress disorder) Rash Shortness of breath Sinus pause Symptomatic bradycardia Syncope Tobacco dependence Urinary incontinence Visit for wound check Family History Mother Unknown family medical history Father Unknown family medical history Surgical History History of hemiarthroplasty of right hip Hx of total hip arthroplasty No pertinent past surgical history Status post hip hemiarthroplasty Social History Household Members: Spouse Housing: Apartment Housing Other:: From [facility] Do you presently have visiting nurse or other home services: Yes ([employer]) Unable to assess alcohol history related to: Unknown Alcohol intake: never Patient Tobacco Use Status: Former Tobacco user Tobacco use type: Cigarette Cigarettes Per Day: 5.0 Years Smoked: since teen years per pt Smoked in Last 30 Days: No e-Cigarette/Vaping Use: Never Used Second Hand Smoke Exposure: Yes Use of substances other than those prescribed or required for medical reasons: No Substance Use Type: Marijuana Advance Directives: Yes Advance Directives on File: Yes Advance Directives Date on File: 06/16/21 Patient : No service: Yes Current occupational status: disabled Current occupation: rt handed Cognitive needs: Yes Hearing needs: No Vision needs: Yes Meds Allergies Allergy/AdvReac Type Severity Reaction Status Date / Time Breeding nut Allergy Unknown Verified 06/19/23 14:35 lactose Allergy Diarrhea Verified 06/19/23 14:35 Active Medications: Current Medications Sodium Chloride (Ns) 2,000 mls @ 999 mls/hr IVCONT .Q2H1M ONE Stop: 06/19/23 19:51 Last Admin: 06/19/23 18:07 Dose: 999 mls/hr Home Medications Medication Instructions Recorded Confirmed Last Taken Type acetaminophen 500 mg tablet 1,000 mg PO Q4H PRN Pain 02/21/22 06/19/23 Unknown History (Tylenol Extra Strength) gabapentin 300 mg capsule 300 mg PO BEDTIME 06/04/23 06/19/23 Unknown History cholecalciferol (vitamin D3) 25 25 mcg PO Q OTHER DAY 06/19/23 06/19/23 Unknown History mcg (1,000 unit) capsule cyanocobalamin (vitamin B-12) 1,000 mcg PO Q OTHER DAY 06/19/23 06/19/23 Unknown History 1,000 mcg tablet docusate sodium 100 mg capsule 100 mg PO BID PRN Constipation 06/19/23 06/19/23 Unknown History gabapentin 100 mg capsule 200 mg PO QAM 06/19/23 06/19/23 Unknown History lidocaine 4 % topical patch 1 patch topical DAILY PRN pain 06/19/23 06/19/23 Unknown History multivitamin 1 tab PO Q OTHER DAY 06/19/23 06/19/23 Unknown History polyethylene glycol 3350 17 gram 17 g PO DAILY PRN Constipation 06/19/23 3 Unknown History oral powder packet (Miralax) Physical Exam Vital Signs and Narrative: Vital Signs: Last Vital Signs Temp 102 F H 06/19/23 16:33 Pulse 94 06/19/23 18:00 Resp 18 06/19/23 14:37 BP 99/61 06/19/23 18:00 Pulse Ox 94 06/19/23 18:00 O2 Del Method Room Air 06/19/23 18:00 BMI result Body Mass Index 19.0 Constitutional - Awake and Alert, No apparent distress Eyes - PERRLA, EOMI Cardiovascular - S1S2, RRR, No edema Respiratory - Normal lung expansion, Normal respiratory effort, No respiratory distress, CTA bilaterally Gastrointestinal - NT , but rigid, ND; +BS; No rebound or guarding Extremities - no calf tenderness bilaterally, no swelling Skin - Warm/Dry. Tunneling subcentimeter wound of sacrum with packing in place with purulent drainage. Right hip with tunneling sub centimeter wound with packing in place with purulent drainage. No surrounding erythema or wamrth Neurological - Alert & oriented x3 Psychological - Appropriate affect Results Labs 06/19/23 15:44 06/19/23 15:44 Labs: Laboratory Results - last 24 hr 06/19/23 06/19/23 06/19/23 15:44 15:44 15:44 MCV 87.4 MCH 27.6 MCHC 31.6 RDW 15.6 Plt Count 506 H D MPV 10.2 Immature Gran % (Auto) 0.6 H Neut % (Auto) 80.6 H Lymph % (Auto) 13.6 L [place] % (Auto) 4.3 Eos % (Auto) 0.4 Baso % (Auto) 0.5 Lymph # (Auto) 2.8 [place] # (Auto) 0.9 Eos # (Auto) 0.1 Baso # (Auto) 0.1 Abs Immat Gran (auto) 0.13 H Absolute Neuts (auto) 16.9 H Absolute Nucleated RBC 0.000 Nucleated RBC % (auto) 0.0 PT 13.9 H INR 1.1 VBG pH VBG pCO2 VBG pO2 VBG HCO3 VBG O2 Saturation VBG Base Excess Anion Gap 12 Estim Creat Clear Calc 84.6 Estimated GFR > 60 Random Glucose 96 Lactic Acid Calcium 9.2 D Magnesium 1.9 Total Bilirubin 0.3 Direct Bilirubin 0.1 AST 22 ALT 18 Alkaline Phosphatase 128 H Ammonia Total Protein 6.9 Albumin 3.3 L TSH Free T4 Urine Opiates Screen Urine Fentanyl Screen Ur Barbiturates Screen Ur Phencyclidine Scrn Ur Amphetamines Screen U Benzodiazepines Scrn Urine Cocaine Screen U Marijuana (THC) Screen Ethyl Alcohol COVID-19 (BOB) COVID-19 Clin Com Influenza Type A (GRAY) Influenza Type B (GRAY) Influenza A & B Note 06/19/23 06/19/23 06/19/23 15:44 15:44 15:44 MCV MCH MCHC RDW Plt Count MPV Immature Gran % (Auto) Neut % (Auto) Lymph % (Auto) [place] % (Auto) Eos % (Auto) Baso % (Auto) Lymph # (Auto) [place] # (Auto) Eos # (Auto) Baso # (Auto) Abs Immat Gran (auto) Absolute Neuts (auto) Absolute Nucleated RBC Nucleated RBC % (auto) PT INR VBG pH VBG pCO2 VBG pO2 VBG HCO3 VBG O2 Saturation VBG Base Excess Anion Gap Estim Creat Clear Calc Estimated GFR Random Glucose Lactic Acid 1.5 Calcium Magnesium Total Bilirubin Direct Bilirubin AST ALT Alkaline Phosphatase Ammonia 28 Total Protein Albumin TSH Free T4 Urine Opiates Screen Urine Fentanyl Screen Ur Barbiturates Screen Ur Phencyclidine Scrn Ur Amphetamines Screen U Benzodiazepines Scrn Urine Cocaine Screen U Marijuana (THC) Screen Ethyl Alcohol COVID-19 (BOB) Negative COVID-19 [employer] Com See Note Influenza Type A (GRAY) Influenza Type B (GRAY) Influenza A & B Note 06/19/23 06/19/23 06/19/23 15:44 15:44 15:46 MCV MCH MCHC RDW Plt Count MPV Immature Gran % (Auto) Neut % (Auto) Lymph % (Auto) [place] % (Auto) Eos % (Auto) Baso % (Auto) Lymph # (Auto) [place] # (Auto) Eos # (Auto) Baso # (Auto) Abs Immat Gran (auto) Absolute Neuts (auto) Absolute Nucleated RBC Nucleated RBC % (auto) PT INR VBG pH 7.48 H VBG pCO2 31 VBG pO2 50 VBG HCO3 23 VBG O2 Saturation 81.0 VBG Base Excess 0.9 Anion Gap Estim Creat Clear Calc Estimated GFR Random Glucose Lactic Acid Calcium Magnesium Total Bilirubin Direct Bilirubin AST ALT Alkaline Phosphatase Ammonia Total Protein Albumin TSH 0.19 L Free T4 1.47 Urine Opiates Screen Urine Fentanyl Screen Ur Barbiturates Screen Ur Phencyclidine Scrn Ur Amphetamines Screen U Benzodiazepines Scrn Urine Cocaine Screen U Marijuana (THC) Screen Ethyl Alcohol < 10 COVID-19 (BOB) COVID-19 Clin Com Influenza Type A (GRAY) Negative Influenza Type B (GRAY) Negative Influenza A & B Note See Note 06/19/23 16:29 MCV MCH MCHC RDW Plt Count MPV Immature Gran % (Auto) Neut % (Auto) Lymph % (Auto) [place] % (Auto) Eos % (Auto) Baso % (Auto) Lymph # (Auto) [place] # (Auto) Eos # (Auto) Baso # (Auto) Abs Immat Gran (auto) Absolute Neuts (auto) Absolute Nucleated RBC Nucleated RBC % (auto) PT INR VBG pH VBG pCO2 VBG pO2 VBG HCO3 VBG O2 Saturation VBG Base Excess Anion Gap Estim Creat Clear Calc Estimated GFR Random Glucose Lactic Acid Calcium Magnesium Total Bilirubin Direct Bilirubin AST ALT Alkaline Phosphatase Ammonia Total Protein Albumin TSH Free T4 Urine Opiates Screen Not Detected Urine Fentanyl Screen Not Detected Ur Barbiturates Screen Not Detected Ur Phencyclidine Scrn Not Detected Ur Amphetamines Screen Not Detected U Benzodiazepines Scrn Not Detected Urine Cocaine Screen Not Detected U Marijuana (THC) Screen Not Detected Ethyl Alcohol COVID-19 (BOB) COVID-19 Clin Com Influenza Type A (GRAY) Influenza Type B (GRAY) Influenza A & B Note Imaging Radiologist's Impressions: Impressions Chest X-Ray 06/19/23 15:24 IMPRESSION: Right basilar patchy airspace opacity noted on the recent chest x-ray of 06/03/2023 is not appreciated on the current examination. No convincing radiographic evidence of new airspace opacities. Head CT 06/19/23 16:04 IMPRESSION: No acute intracranial pathology. Assessment and Plan (1) Severe sepsis: Status: Acute (2) Encephalopathy: Status: Acute (3) Decubitus ulcer, unstageable with infection: Status: Acute Plan 58-year-old female with history of colovaginal fistula, hypothyroidism, advanced dementia minimally verbal at baseline, complete heart block s/p PPM, history of MRSA and osteomyelitis of the right hip who is a former smoker admitted for severe sepsis of unclear source #Severe sepsis -unclear source at this time -UA possibly indicative of UTI, increased likelihood given colovaginal fistula. Also with infected appearing chronic wounds of the right hip and sacrum. CXR without acute abnormality. CT abd/pelvis pending -Leukocytosis 20, febrile to 102, mildly tachycardic to 95. Lactic acid normal on arrival. However, developed >2 episodes hypotension, receiving 3L IV NS bolus. Discussed potential need for vasopressors in ICU and he is agreeable. Patient is full code. -Repeat lactic acid -broaden antibiotics to vanco and cefepime -Monitor VS q1h for now -Follow CBC, blood cultures #Infected chronic unstageable ulcers of the sacrum and right hip -Hx MRSA, wound culture obtained -CT pelvis and right hip pending -IV cefepime and vanco as above -General surgery consult -Consider ID consult #Hypotension -due to severe sepsis -Continue IVF as above # acute metabolic encephalopathy -baseline advanced dementia, per does speak to him at baseline -due to infection as above. Ammonia normal. Renal function, lytes normal. Free T4 normal. Head CT negative for acute intracranial abnormality -monitor mentation #?UTI -Pt with severe sepsis with UA trace leuks, 2+ blood, scant urinary sediment, no bacteria -On abx as above -Follow UC #Abdominal rigitity -no grimacing on exam -CT abd/pelvis ordered given unclear source of severe sepsis #Hypothyroidism -TSH low, normal free T4. Likely sick euthyroid -Continue synthroid #Colovaginal fistula -gen surgery consult DVT prophylaxis-heparin Full code-discussed with . He is okay with vasopressors as well. He is her guardian Patient requires inpatient stay at least 2 midnights for management of severe sepsis of unclear source at this time requiring IV antibiotics and aggressive IV fluid resuscitation given multiple episodes of hypotension with possible need for transfer to ICU for vasopressor therapy. Time Spent With Patient Time: Total time managing care of this patient today ____ minutes. Quality Stroke Does the patient have a stroke diagnosis?: No VTE Prior VTE?: No VTE Risk Level:: Medical - moderate - high VTE Device Contraindication: Treatment Not Indicated VTE Drug Contraindication: N/A - Med Ordered
--- NOTE | 2023-06-19 20:06 | PHA.MEDREC ---
Pharmacy Consult ? Medication Reconciliation Pharmacy has completed the medication reconciliation. spoe with patients . He confirmed her medications. 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 He explained the TDD of gabapentin is supposed to be 600mg however he gives her a TDD of 500mg instead because the higher dose makes her a zombie . He gives her multivitamin on days opposite of B12 and D3.
[2023-06-19 20:15] LABS: Appearance Urine Clear; Color Urine Yellow; Glucose Urine UA Negative (Negative); Leukocyte Esterase Urine Trace (Negative); Nitrite Urine Negative (Negative); PH 5.5 (5.0-9.0); Specific Gravity - Urine 1.025 (1.005-1.025); UMIC TRIGGER UACC YES; Urine Blood Moderate (2+) (Negative); Urine Ketones Negative (Negative); Urine Protein Trace mg/dL (Neg-Trace)
[2023-06-19 20:38] LABS: Bacteria Urine None Seen (None Seen); Calcium Oxalate Crystals Urine Present; Hyaline Casts Urine 0-2 /LPF (0-2); Squamous Epithelial Cell Urine 0-2 /HPF (0-2); WBC Urine 0-5 /HPF (0-5)
[2023-06-19] MEDS: 0.9 % Sodium Chloride 1,000 ML 999 ML IV (20:42)
[2023-06-19] MEDS: Heparin Sodium,Porcine 5,000 UNIT/ML VIAL 5000 UNIT SUBCUT (20:55)
--- NOTE | 2023-06-19 20:56 | PC.NURSE ---
Patient vitals are still low patient was assessed by the doctor patient wounds were freshly dressed patient tolerating all IV fluids with no issues patient will continue to be monitored for safety
--- NOTE | 2023-06-19 22:10 | PM.EVENT ---
Event Note Date of Service: 06/19/23 Event Note: Patient seen and examined at bedside. Unfortunately patient is hypotensive, pressure in the 70s over 40s. Received 3 L of IV fluids and continues to be hypotensive. Discussed code status with her who is adamant that she is full code and muscle received all measures. At this time will discuss transfer to ICU for further management Time Spent With Patient Time: Total time managing care of this patient today ____ minutes.
[2023-06-19 22:12] LABS: C Reactive Protein 14.69 mg/dL (< or = 0.50)
--- NOTE | 2023-06-19 22:31 | MHC.EDTECH ---
attempted to do vitals, providers are attempting central line and prior to patient was in CT
--- NOTE | 2023-06-19 22:45 | P.CONCC_ITS ---
History of Present Illness Data of Consult Service Date: 06/19/23 Requesting physician: Alonso Jj Primary Care Provider: Unknown Physician HPI Reason for consult: Hypotension 58-year-old female with history of colovaginal fistula, hypothyroidism, advanced dementia minimally verbal at baseline, complete heart block s/p PPM, history of MRSA and osteomyelitis of the right hip who is a former smoker presented to the ER earlier today via EMS for evaluation of altered mental status. According to patient was very somnolent and barely responsive.? Of note, the patient was discharged from the hospital about 1.5 weeks ago for UTI, sepsis, pneumonia with chronic infected pressure wounds.? The patient's denies any fevers, chills, vomiting, diarrhea. On arrival, patient febrile to 102, blood pressures soft but no hypotension. WBC 20.? UA with 2+ blood, trace leukocytes, small amount of urinary sediment and negative bacteria.?? ?She was initially admitted into hospital medicine for severe sepsis, with multiple possible sources UTI, Wound,/ abdomen. Pending CT of the abdomen as her abdomen is firm and distended.? She became hypotensive to systolic of 70s ,? and despite 3 L of IV? fluids remained hypotensive. Will be transfer to ICU for? hemodynamic monitoring Review of Systems Review of Systems: Yes Unobtainable due to mental condition (Patient non verbal) [facility] Past Medical History Medical History Abnormal EKG Abnormal urine odor Balance disorder Closed dislocation of right hip Closed hip fracture Dementia Dementia Dementia Dislocation, hip closed Displaced fracture of right femoral neck Elevated LFTs Fever Hip dislocation, right History of pacemaker Hypothyroidism Lactose intolerance Left leg weakness Leukocytosis (leucocytosis) Memory loss Osteomyelitis of right hip Pacemaker Pre-op evaluation Preoperative cardiovascular examination PTSD (post-traumatic stress disorder) Rash Shortness of breath Sinus pause Symptomatic bradycardia Syncope Tobacco dependence Urinary incontinence Visit for wound check Family History Family History Mother Unknown family medical history Father Unknown family medical history Surgical History Surgical History History of hemiarthroplasty of right hip Hx of total hip arthroplasty No pertinent past surgical history Status post hip hemiarthroplasty Social History Social History Household Members: Spouse Housing: Apartment Housing Other:: From [facility] Do you presently have visiting nurse or other home services: Yes Unable to assess alcohol history related to: Unable to respond Alcohol intake: never Patient Tobacco Use Status: Former Tobacco user Tobacco use type: Cigarette Cigarettes Per Day: 5.0 Years Smoked: since teen years per pt e-Cigarette/Vaping Use: Never Used Second Hand Smoke Exposure: No Substance Use Type: Marijuana Advance Directives Date on File: 06/16/21 service: Yes Current occupational status: disabled Current occupation: rt handed Cognitive needs: Yes Hearing needs: No Vision needs: Yes Meds Allergies Allergy/AdvReac Type Severity Reaction Status Date / Time [place] nut Allergy Unknown Verified 06/19/23 14:35 lactose Allergy Diarrhea Verified 06/19/23 14:35 Active Medications: Current Medications Acetaminophen (Acetaminophen 325 Mg Tablet) 650 mg PO Q6H PRN PRN Reason: Pain, Mild (Pain Scale 1-3) Docusate Sodium (Docusate Sodium 100 Mg Capsule) 100 mg PO DAILY PRN PRN Reason: Constipation Heparin Sodium (Porcine) (Heparin Sodium,Porcine 5,000 Unit/Ml Vial) 5,000 unit SUBCUT Q12H [facility] Last Admin: 06/19/23 20:55 Dose: 5,000 unit Cefepime HCl 2 gm/ Sodium (Chloride) 50 mls @ 100 mls/hr IV Q8H [facility] Vancomycin HCl 1,000 mg/ (Sodium Chloride) 270 mls @ 270 mls/hr IV ONCE ONE Stop: 06/19/23 22:59 Levothyroxine Sodium (Levothyroxine Sodium 100 Mcg Tablet) 100 mcg PO DAILY@0600 [facility] Ondansetron HCl (Ondansetron Hcl 4 Mg/2 Ml Vial) 4 mg IVPUSH Q8H PRN PRN Reason: Nausea and Vomiting Pharmacy Consult (Consult Rx Vancomycin Dosing) 1 each MISCELLANE DAILY PRN PRN Reason: Consult order Sodium Chloride (0.9 % Sodium Chloride Flush 3 Ml Syringe) 3 ml IVFLUSH QSHIFT [facility] Home Medications Medication Instructions Recorded Confirmed Last Taken Type acetaminophen 500 mg tablet 1,000 mg PO Q4H PRN Pain 02/21/22 06/19/23 Unknown History (Tylenol Extra Strength) gabapentin 300 mg capsule 300 mg PO BEDTIME 06/04/23 06/19/23 Unknown History cholecalciferol (vitamin D3) 25 25 mcg PO Q OTHER DAY 06/19/23 06/19/23 Unknown History mcg (1,000 unit) capsule cyanocobalamin (vitamin B-12) 1,000 mcg PO Q OTHER DAY 06/19/23 06/19/23 Unknown History 1,000 mcg tablet docusate sodium 100 mg capsule 100 mg PO BID PRN Constipation 06/19/23 06/19/23 Unknown History gabapentin 100 mg capsule 200 mg PO QAM 06/19/23 06/19/23 Unknown History lidocaine 4 % topical patch 1 patch topical DAILY PRN pain 06/19/23 06/19/23 Unknown History multivitamin 1 tab PO Q OTHER DAY 06/19/23 06/19/23 Unknown History polyethylene glycol 3350 17 gram 17 g PO DAILY PRN Constipation 06/19/23 06/19/23 Unknown History oral powder packet (Miralax) Physical Exam Vital Signs: Vital Signs: Last Vital Signs Temp 97.8 F 06/19/23 22:33 Pulse 83 06/19/23 22:33 Resp 20 06/19/23 22:33 BP 114/62 06/19/23 22:33 Pulse Ox 93 06/19/23 22:33 O2 Del Method Room Air 06/19/23 22:33 BMI result Body Mass Index 19.0 ?General:? Alert, non verbal ?HEENT:? Head is normocephalic, atraumatic, pupils equal round reactive to light accommodation bilaterally.? Buccal mucosa is dry, Neck is supple ?Cardiac:? Clear S1-S2, no murmurs rubs or gallops. ?Pulmonary:? Clear to auscultation, no wheezes, rales or rhonchi. ?Abdomen:? ?Abdomen soft, non-tender, non-distended. Normal bowel sounds. No pulsatile mass. ?Musculoskeletal:? Moving all 4 extremities Randomly, Gait not assessed at this point. ?Neurologic:? Chronic tremor, As above, cranial nerves 2-12 are grossly intact.? No focal deficits noted.Motor strength as above.?? ?Skin:?Warm/Dry. Tunneling subcentimeter wound of sacrum with packing in place with purulent drainage. Right hip with tunneling sub centimeter wound with packing in place with purulent drainage. No surrounding erythema or wamrth Vascular:? 2+ pulses upper and lower extremities distally.? Results Labs 06/19/23 15:44 06/19/23 15:44 Labs: Short CBC 06/19/23 Range/Units 15:44 WBC 20.9 H (4.8-10.8) X10*3/uL Hgb 12.9 (12.0-16.0) g/dl Hct 40.8 (37.0-47.0) % Plt Count 506 H D (160-400) X10*3/uL BMP 06/19/23 15:44 Sodium 137 Potassium 3.9 Chloride 104 Carbon Dioxide 25 BUN 12 Creatinine 0.54 Calcium 9.2 D Liver Function 06/19/23 Range/Units 15:44 Total Bilirubin 0.3 (0.0-1.0) mg/dL Direct Bilirubin 0.1 (0.0-0.5) mg/dL AST 22 (5-31) U/L ALT 18 (0-31) U/L Alkaline Phosphatase 128 H (39-117) U/L Albumin 3.3 L (3.5-5.0) g/dL Urine 06/19/23 Range/Units 20:05 Urine Color Yellow Urine Appearance Clear Urine pH 5.5 (5.0-9.0) Ur Specific [place] 1.025 (1.005-1.025) Urine Protein Trace (Neg-Trace) mg/dL Urine Glucose (UA) Negative (Negative) mg/dL Assessment and Plan (1) Severe sepsis: Status: Acute (2) Decubitus ulcer, unstageable with infection: Status: Acute (3) UTI (urinary tract infection): Status: Acute (4) Encephalopathy: Status: Acute (5) Colovaginal fistula: Status: Acute Plan Severe sepsis: No evidence of septic shock, Repeat lactic acid 2, BP when i assessed patient improved to systolic of 100s. Source of infection is unclear as patient has multiple possible source UTI/Wound/Abdomen.? Plan Obtain CT abdomen? VBGs Albumin Broaden antibiotic coverage Critical care time: X 60 MIN of critical care time Case disucused with attending Time Spent With Patient Time: Total time managing care of this patient today ____ minutes.
[2023-06-19 23:13] LABS: VBG Base Excess -5.2 mmol/L; VBG HCO3 17 mmol/L (22-26); VBG pCO2 26 mmHg; VBG pH 7.42 (7.32-7.43); VBG pO2 101 mmHg
[2023-06-19] MEDS: vancomycin HCL 1,000 MG in 0.9 % Sodium Chloride 250 ML 270 MG IV (23:14)
[2023-06-19 23:29] LABS: Venous Blood Gas Refer to POC result
--- NOTE | 2023-06-19 23:39 | W.PM.CCHP ---
Procedures Date of Service Date of Service: 06/19/23 Central Line Placement Right IJ: Central Line Comments: emergent central line placement needed for severe hypotension. Right internal jugular triple lumen central venous catheter placed in usual sterile conditions under ultrasound guidance for appropriate vascular access without immediate complications. Central line position verified with Chest XRAY Consent for Procedure: Emergent-no informed consent obtained Time out performed: Yes Sterile Technique Used: Yes Patient placed on monitor/pulse ox: Yes MD prep: mask, gown and gloves Central line prep: Chlorhexidine scrub Local anesthesia used: lidocaine 1% Central line lumen inserted: triple Post procedure: sutured in place, good blood return, all ports aspirated, flushed, capped and sterile dressing applied Post procedure x-ray: tip of catheter in good position and no pneumothorax seen Patient tolerated procedure: well and no complications Complications: none
[2023-06-19] MEDS: Albumin Human 25 % 100 ML IV (23:42)
[2023-06-20] VITALS (19 sets, daily range): BP systolic 93–127; BP diastolic 33–64; PULSE 77–95; RESP 14–23; TEMP 36.1–36.8; O2SAT 93–97; BMI 19.9
[2023-06-20] MEDS: iohexoL 350 MG/ML 100 ML INFUS..BTL 85 ML IV (00:06)
[2023-06-20] MEDS: 0.9 % Sodium Chloride Flush 3 ML SYRINGE IVFLUSH ×3 (00:07→15:18)
[2023-06-20] MEDS: Albumin Human 25 % 100 ML IV ×3 (00:47→20:55)
[2023-06-20 04:54] LABS: MANUAL DIFF FLAG NO
[2023-06-20 04:55] LABS: Basophils Absolute Auto 0.1 X10*3/uL (0.0-0.2); Basophils Percent Auto 0.5 % (0-2); Eosinophils Absolute Auto 0.1 X10*3/uL (0.0-0.4); Eosinophils Percent Auto 1.1 % (0-4); Hematocrit 30.5 % (37.0-47.0); Hemoglobin 9.5 g/dl (12.0-16.0); Imm Gran Abs Auto 0.05 X10*3/uL (0.00-0.03); Imm Gran Pct Auto 0.5 % (0.0-0.4); Lymphocytes Absolute Auto 1.5 X10*3/uL (1.2-4.9); Lymphocytes Percent Auto 13.1 % (20-40); Mean Corpuscular HGB Conc 31.1 g/dl (31.0-35.0); Mean Corpuscular Hemoglobin 27.9 pg (27.0-33.0); Mean Corpuscular Volume 89.4 fL (80.0-98.0); Mean Platelet Volume 9.8 fL (9.4-12.3); Monocytes Absolute Auto 0.6 X10*3/uL (0.1-1.2); Monocytes Percent Auto 5.4 % (2-11); Neutrophils Absolute Auto 8.8 x10*3/uL (2.0-8.3); Neutrophils Percent Auto 79.4 % (45-73); Platelet Count 340 X10*3/uL (160-400); Red Blood Count 3.41 X10*6/uL (4.20-5.50); Red Cell Distribution Width 15.4 % (11.0-16.0); White Blood Count 11.1 X10*3/uL (4.8-10.8)
[2023-06-20 05:15] LABS: Anion Gap 11 (12-20); Blood Urea Nitrogen 5 mg/dL (9-16); Carbon Dioxide 24 mmol/L (22-29); Chloride 110 mmol/L (96-108); Creatinine Clr Calc Pharmacy 122.6; Estimated Glomerular Filt Rate > 60; Glucose Random 81 mg/dL (60-115); Sodium 142 mmol/L (135-145)
[2023-06-20 05:40] LABS: Albumin Level 3.6 g/dL (3.5-5.0); Magnesium 1.6 mg/dL (1.6-2.6); Phosphorus 2.4 mg/dL (2.7-4.5)
[2023-06-20] MEDS: Potassium Phosphate/NS 15 MMOL/250 ML PLAST..BAG 62.5 MMOL IV (06:03)
[2023-06-20] MEDS: Magnesium Sulfate/D5W 1 GM/100 ML PIGGYBACK IV (06:05)
--- NOTE | 2023-06-20 06:56 | PHA.PROG ---
Admission Date/Time: June 19, 2023 19:15 Indication:SEPSIS Weight in k.4 kg Adjusted body weight in Kg: [place] body weight in Kg: Obesity Dosing Indication % IBW:19.9 Serum Creatinine - Last 168 Hours 06/19/23 06/20/23 15:44 04:40 Creatinine 0.54 0.39 L Estimated CrCl and GFR - Last 168 Hours 06/19/23 06/20/23 15:44 04:40 Estim Creat Clear Calc 84.6 122.6 Estimated GFR > 60 > 60 Vancomycin Loading Dose: 1000 Current Vancomycin Dosing Regimen: 1000 Q12 HOURS Vancomycin Monitoring using AUC goal of 400 - 600 range with trough as surrogate marker:452 Date and Time for next Vancomycin Level to be drawn:06/21 @0800 Pharmacist Comments on Vancomycin Plan: PT IS SMALL AND DOSING COULD HAVE BEEN 1250 Q12 BUT BECAUSE OF PATIENT SIZE I WENT WITH LOWER END OF DOSING RANGE. WILL CONTINUE TO MONITOR RENAL FUNCTION AND CHECK TROUGH BEFORE 4TH DOSE TO ENSURE EFFICACY AND SAFETY. Vancomycin dosing will take advantage of [employer] as a clinical decision support tool that uses Bayesian modeling to calculate individual patient's pharmacokinetic parameters and forecast the patient's drug concentration time course with the target goal AUC 24 range of 400 - 600 mg/L/hr.
--- NOTE | 2023-06-20 08:42 | PM.CNGS ---
History of Present Illness Consult details Consult date: 06/20/23 Narrative: The patient is a 58-year-old woman seen at the request of Dr. 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 Patient was admitted 06/07/2023 and, at that time, the patient's did not want any heroic measures to be undertaken. The patient's past medical history includes dementia, Alzheimer's, Patient is been in readmitted with sepsis and has a pelvic collection in addition to a right hip enrique on 07/31/21. The patient is admitted to the ICU due to sepsis/hypotension and, on CT is noted to have a pelvic collection as well as a collection involving the right hip. She is felt to have chronic osteomyelitis and was also noted to have feculent discharge from her vagina intermittently in recurring UTIs. In reviewing the EMR, the patient (when lucid) and her declined any interventions. The patient's is at the bedside and reports significant concerns about placement/bio psycho social issues which are deferred to primary team and case management. In conversation with Dr. Larson, I was asked to help direct care given these recurrent, chronic problems resulting in sepsis and readmission. At the time of evaluation, the patient is non communicative and history is obtained from the and EMR. Review of Systems Review of Systems: Yes all other systems are reviewed and are negative Constitutional: Constitutional: Reports as per [facility] Past Medical History Medical History Abnormal EKG Abnormal urine odor Balance disorder Closed dislocation of right hip Closed hip fracture Dementia Dementia Dementia Dislocation, hip closed Displaced fracture of right femoral neck Elevated LFTs Fever Hip dislocation, right History of pacemaker Hypothyroidism Lactose intolerance Left leg weakness Leukocytosis (leucocytosis) Memory loss Osteomyelitis of right hip Pacemaker Pre-op evaluation Preoperative cardiovascular examination PTSD (post-traumatic stress disorder) Rash Shortness of breath Sinus pause Symptomatic bradycardia Syncope Tobacco dependence Urinary incontinence Visit for wound check Family History Family History Mother Unknown family medical history Father Unknown family medical history Surgical History Surgical History History of hemiarthroplasty of right hip Hx of total hip arthroplasty No pertinent past surgical history Status post hip hemiarthroplasty Social History Social History Household Members: Spouse Housing: Apartment Housing Other:: From [facility] Do you presently have visiting nurse or other home services: Yes Unable to assess alcohol history related to: Unable to respond Alcohol intake: never Patient Tobacco Use Status: Former Tobacco user Tobacco use type: Cigarette Cigarettes Per Day: 5.0 Years Smoked: since teen years per pt e-Cigarette/Vaping Use: Never Used Second Hand Smoke Exposure: No Substance Use Type: Marijuana Advance Directives Date on File: 06/16/21 service: Yes Current occupational status: disabled Current occupation: rt handed Cognitive needs: Yes Hearing needs: No Vision needs: Yes Meds Allergies Allergy/AdvReac Type Severity Reaction Status Date / Time [place] nut Allergy Unknown Verified 06/19/23 14:35 lactose Allergy Diarrhea Verified 06/19/23 14:35 Active Medications: Current Medications Acetaminophen (Acetaminophen 325 Mg Tablet) 650 mg PO Q6H PRN PRN Reason: Pain, Mild (Pain Scale 1-3) Docusate Sodium (Docusate Sodium 100 Mg Capsule) 100 mg PO DAILY PRN PRN Reason: Constipation Heparin Sodium (Porcine) (Heparin Sodium,Porcine 5,000 Unit/Ml Vial) 5,000 unit SUBCUT Q12H JOMAR Last Admin: 06/19/23 20:55 Dose: 5,000 unit Potassium Phosphate (Kphos) 15 mmol in 250 mls @ 62.5 mls/hr IV ONCE ONE Stop: 06/20/23 09:47 Last Admin: 06/20/23 06:03 Dose: 62.5 mls/hr Vancomycin HCl 1,000 mg/ (Sodium Chloride) 270 mls @ 270 mls/hr IV Q12H JOMAR Piperacillin Sod/Tazobactam (Sod 3.375 gm/ Sodium Chloride) 50 mls @ 100 mls/hr IV Q6H JOMAR Levothyroxine Sodium (Levothyroxine Sodium 100 Mcg Tablet) 100 mcg PO DAILY@0600 JOMAR Ondansetron HCl (Ondansetron Hcl 4 Mg/2 Ml Vial) 4 mg IVPUSH Q8H PRN PRN Reason: Nausea and Vomiting Pharmacy Consult (Consult Rx Vancomycin Dosing) 1 each MISCELLANE DAILY PRN PRN Reason: Consult order Sodium Chloride (0.9 % Sodium Chloride Flush 3 Ml Syringe) 3 ml IVFLUSH QSHIFT JOMAR Last Admin: 06/20/23 00:07 Dose: 3 ml Home Medications Medication Instructions Recorded Confirmed Last Taken Type acetaminophen 500 mg tablet 1,000 mg PO Q4H PRN Pain 02/21/22 06/19/23 Unknown History (Tylenol Extra Strength) gabapentin 300 mg capsule 300 mg PO BEDTIME 06/04/23 06/19/23 Unknown History cholecalciferol (vitamin D3) 25 25 mcg PO Q OTHER DAY 06/19/23 06/19/23 Unknown History mcg (1,000 unit) capsule cyanocobalamin (vitamin B-12) 1,000 mcg PO Q OTHER DAY 06/19/23 06/19/23 Unknown History 1,000 mcg tablet docusate sodium 100 mg capsule 100 mg PO BID PRN Constipation 06/19/23 06/19/23 Unknown History gabapentin 100 mg capsule 200 mg PO QAM 06/19/23 06/19/23 Unknown History lidocaine 4 % topical patch 1 patch topical DAILY PRN pain 06/19/23 06/19/23 Unknown History multivitamin 1 tab PO Q OTHER DAY 06/19/23 06/19/23 Unknown History polyethylene glycol 3350 17 gram 17 g PO DAILY PRN Constipation 06/19/23 06/19/23 Unknown History oral powder packet (Miralax) Physical Exam Vital Signs: Vital Signs: Last Vital Signs Temp 97.5 F 06/20/23 08:00 Pulse 89 06/20/23 08:00 Resp 22 H 06/20/23 08:00 BP 99/55 L 06/20/23 08:00 Pulse Ox 96 06/20/23 08:00 O2 Del Method Room Air 06/20/23 08:00 BMI result Body Mass Index 19.9 On exam, the patient is elderly frail with contractures, temporal and interosseous muscle wasting in the hands The patient's right hip incision has a chronic draining fistula Nursing reports feculent malodorous drainage from the vagina. Results Labs 06/20/23 04:40 06/20/23 04:40 Labs: Abnormal lab results 06/19/23 06/19/23 06/19/23 Range/Units 15:44 15:44 15:44 WBC 20.9 H (4.8-10.8) X10*3/uL RBC (4.20-5.50) X10*6/uL Hgb (12.0-16.0) g/dl Hct (37.0-47.0) % Plt Count 506 H D (160-400) X10*3/uL Immature Gran % (Auto) 0.6 H (0.0-0.4) % Neut % (Auto) 80.6 H (45-73) % Lymph % (Auto) 13.6 L (20-40) % Abs Immat Gran (auto) 0.13 H (0.00-0.03) X10*3/uL Absolute Neuts (auto) 16.9 H (2.0-8.3) x10*3/uL PT 13.9 H (11.1-13.3) SEC VBG pH (7.32-7.43) VBG HCO3 (22-26) mmol/L Potassium (3.3-5.1) mmol/L Chloride (96-108) mmol/L Anion Gap (12-20) BUN (9-16) mg/dL Creatinine (0.5-1.4) mg/dL Phosphorus (2.7-4.5) mg/dL Alkaline Phosphatase 128 H (39-117) U/L C-Reactive Protein 14.69 H (< or = 0.50) mg/dL Albumin 3.3 L (3.5-5.0) g/dL TSH (0.32-4.0) uIU/mL Urine Blood (Negative) Ur Leukocyte Esterase (Negative) Urine RBC (0-2) /HPF 06/19/23 06/19/23 06/19/23 Range/Units 15:44 15:46 20:05 WBC (4.8-10.8) X10*3/uL RBC (4.20-5.50) X10*6/uL Hgb (12.0-16.0) g/dl Hct (37.0-47.0) % Plt Count (160-400) X10*3/uL Immature Gran % (Auto) (0.0-0.4) % Neut % (Auto) (45-73) % Lymph % (Auto) (20-40) % Abs Immat Gran (auto) (0.00-0.03) X10*3/uL Absolute Neuts (auto) (2.0-8.3) x10*3/uL PT (11.1-13.3) SEC VBG pH 7.48 H (7.32-7.43) VBG HCO3 (22-26) mmol/L Potassium (3.3-5.1) mmol/L Chloride (96-108) mmol/L Anion Gap (12-20) BUN (9-16) mg/dL Creatinine (0.5-1.4) mg/dL Phosphorus (2.7-4.5) mg/dL Alkaline Phosphatase (39-117) U/L C-Reactive Protein (< or = 0.50) mg/dL Albumin (3.5-5.0) g/dL TSH 0.19 L (0.32-4.0) uIU/mL Urine Blood Moderate (2+) H (Negative) Ur Leukocyte Esterase Trace H (Negative) Urine RBC 6-10 H (0-2) /HPF 06/19/23 06/20/23 06/20/23 Range/Units 23:04 04:40 04:40 WBC 11.1 H (4.8-10.8) X10*3/uL RBC 3.41 L D (4.20-5.50) X10*6/uL Hgb 9.5 L D (12.0-16.0) g/dl Hct 30.5 L D (37.0-47.0) % Plt Count (160-400) X10*3/uL Immature Gran % (Auto) 0.5 H (0.0-0.4) % Neut % (Auto) 79.4 H (45-73) % Lymph % (Auto) 13.1 L (20-40) % Abs Immat Gran (auto) 0.05 H (0.00-0.03) X10*3/uL Absolute Neuts (auto) 8.8 H (2.0-8.3) x10*3/uL PT (11.1-13.3) SEC VBG pH (7.32-7.43) VBG HCO3 17 L (22-26) mmol/L Potassium 3.0 L D (3.3-5.1) mmol/L Chloride 110 H (96-108) mmol/L Anion Gap 11 L (12-20) BUN 5 L (9-16) mg/dL Creatinine 0.39 L (0.5-1.4) mg/dL Phosphorus 2.4 L (2.7-4.5) mg/dL Alkaline Phosphatase (39-117) U/L C-Reactive Protein (< or = 0.50) mg/dL Albumin (3.5-5.0) g/dL TSH (0.32-4.0) uIU/mL Urine Blood (Negative) Ur Leukocyte Esterase (Negative) Urine RBC (0-2) /HPF Short CBC 06/19/23 06/20/23 Range/Units 15:44 04:40 WBC 20.9 H 11.1 H (4.8-10.8) X10*3/uL Hgb 12.9 9.5 L D (12.0-16.0) g/dl Hct 40.8 30.5 L D (37.0-47.0) % Plt Count 506 H D 340 D (160-400) X10*3/uL BMP 06/19/23 06/20/23 15:44 04:40 Sodium 137 142 Potassium 3.9 3.0 L D Chloride 104 110 H Carbon Dioxide 25 24 BUN 12 5 L Creatinine 0.54 0.39 L Calcium 9.2 D 9.0 Liver Function 06/19/23 06/20/23 Range/Units 15:44 04:40 Total Bilirubin 0.3 (0.0-1.0) mg/dL Direct Bilirubin 0.1 (0.0-0.5) mg/dL AST 22 (5-31) U/L ALT 18 (0-31) U/L Alkaline Phosphatase 128 H (39-117) U/L Albumin 3.3 L 3.6 (3.5-5.0) g/dL Urine 06/19/23 Range/Units 20:05 Urine Color Yellow Urine Appearance Clear Urine pH 5.5 (5.0-9.0) Ur Specific [place] 1.025 (1.005-1.025) Urine Protein Trace (Neg-Trace) mg/dL Urine Glucose (UA) Negative (Negative) mg/dL All other labs normal. Imaging Abdomen CT scan report/results: report reviewed and image reviewed CT scan - pelvis: report reviewed and image reviewed Assessment and Plan (1) Decubitus ulcer, unstageable with infection: Status: Acute (2) Severe sepsis: Status: Acute (3) UTI (urinary tract infection): Status: Acute (4) Encephalopathy: Status: Acute (5) Colovaginal fistula: Status: Acute (6) Dementia: Status: Acute (7) S/P [place] procedure: Status: Acute (8) Unspecified open wound, right hip, initial encounter: Status: Acute Plan The patient is obviously chronic malnourished by her habitus and I will order labs to assess; if the patient's is interested in more aggressive management, her malnutrition should be addressed as well as any vitamin deficiencies before proceeding with a definitive procedure. This may include colectomy and permanent colostomy which would result in take down of any colovaginal fistula. In the meantime, interventional drainage to address the right pelvic collection and input from Orthopedics given the likely chronic osteo involving the right hip would be in order. Percutaneous drainage and assessment of the organisms at both sites would help direct care. The patient's noted a desire to follow-up with Dr. Green, the surgeon who a met at the last admission on an outpatient basis. This may be a reasonable option if she needs nutritional optimization preoperatively, but it should not delay percutaneous drainage at this time. Time Spent With Patient Time: Total time managing care of this patient today ____ minutes. Procedures Date of Service Date of Service: 06/20/23
[2023-06-20] MEDS: Piperacillin Sodium/Tazobactam 3.375 GM in 0.9 % Sodium Chloride 50 ML IV ×3 (08:51→20:55)
[2023-06-20] MEDS: Heparin Sodium,Porcine 5,000 UNIT/ML VIAL 5000 UNIT SUBCUT ×2 (08:56→20:55)
--- NOTE | 2023-06-20 09:49 | P.PNCC_ITS ---
Subjective Subjective Date of Service: 06/20/23 Interval History: 58-year-old lady with underlying dementia minimally verbal at baseline, chronic right femoral osteomyelitis status post Girdlestone procedure, colovaginal fistula with recent admission for UTI, complete heart block status post permanent pacemaker, prior history of osteomyelitis, sacral and in call pressure injuries, hypothyroidism admitted on 06/19/2023 with worsening lethargy, leukocytosis, and hypotension with initial poor response to IV fluids. central venous access placed, however patient has not required pressor support. She was monitored in the intensive care unit. CT abdomen pelvis of obtained that demonstrated right femoral and right iliacus abscesses. General and orthopedic surgery were consulted. No events overnight. Lethargy /alteration of mental status improved to baseline per . Critical Care Time (minutes): 0 Physical Exam Vital Signs: Vital Signs: Last Vital Signs Temp 97.5 F 06/20/23 08:00 Pulse 89 06/20/23 09:00 Resp 21 H 06/20/23 09:00 BP 99/41 L 06/20/23 09:00 Pulse Ox 96 06/20/23 09:00 O2 Del Method Room Air 06/20/23 09:00 BMI result Body Mass Index 19.9 Const: General: no acute distress and lethargic Nutritional Appearance: malnourished Orientation/consciousness: lethargic and Other orientation findings ( oriented) HEENT: Head: Yes atraumatic Eyes: General: appearance normal, both eyes and all related structures Scle merry: sclerae normal EOM: EOMs intact bilaterally Neck: Neck: Yes supple Lymphatic: no lymphadenopathy noted Resp: Effort & Inspection: normal respiratory effort and no use of accessory muscles Auscultation: clear to auscultation bilaterally Cardio: Rate: regular rate Rhythm: regular rhythm Heart sounds: no gallops, no murmurs and no rubs Skin: General skin exam: other ( warm) Extrem: General: No clubbing, No cyanosis, No edema and Yes other ( Contractures) Objective Data Labs 06/20/23 04:40 06/20/23 04:40 Labs: Laboratory Results - last 24 hr 06/19/23 06/19/23 06/19/23 15:44 15:44 15:44 WBC 20.9 H RBC 4.67 Hgb 12.9 Hct 40.8 MCV 87.4 MCH 27.6 MCHC 31.6 RDW 15.6 Plt Count 506 H D MPV 10.2 Immature Gran % (Auto) 0.6 H Neut % (Auto) 80.6 H Lymph % (Auto) 13.6 L [place] % (Auto) 4.3 Eos % (Auto) 0.4 Baso % (Auto) 0.5 Lymph # (Auto) 2.8 [place] # (Auto) 0.9 Eos # (Auto) 0.1 Baso # (Auto) 0.1 Abs Immat Gran (auto) 0.13 H Absolute Neuts (auto) 16.9 H Absolute Nucleated RBC 0.000 Nucleated RBC % (auto) 0.0 PT 13.9 H INR 1.1 VBG pH VBG pCO2 VBG pO2 VBG HCO3 VBG O2 Saturation VBG Base Excess Sodium 137 Potassium 3.9 Chloride 104 Carbon Dioxide 25 Anion Gap 12 BUN 12 Creatinine 0.54 Estim Creat Clear Calc 84.6 Estimated GFR > 60 Random Glucose 96 Lactic Acid Calcium 9.2 D Phosphorus Magnesium 1.9 Total Bilirubin 0.3 Direct Bilirubin 0.1 AST 22 ALT 18 Alkaline Phosphatase 128 H Ammonia Troponin I High Sens C-Reactive Protein 14.69 H Total Protein 6.9 Albumin 3.3 L TSH Free T4 Urine Color Urine Appearance Urine pH Ur Specific [place] Urine Protein Urine Glucose (UA) Urine Ketones Urine Blood Urine Nitrite Ur Leukocyte Esterase Urine RBC Urine WBC Ur Squamous Epith Cells Calcium Oxalate Crystal Urine Bacteria Hyaline Casts Urine Opiates Screen Urine Fentanyl Screen Ur Barbiturates Screen Ur Phencyclidine Scrn Ur Amphetamines Screen U Benzodiazepines Scrn Urine Cocaine Screen U Marijuana (THC) Screen Ethyl Alcohol COVID-19 (BOB) COVID-19 Clin Com Influenza Type A (GRAY) Influenza Type B (GRAY) Influenza A & B Note 06/19/23 06/19/23 06/19/23 15:44 15:44 15:44 WBC RBC Hgb Hct MCV MCH MCHC RDW Plt Count MPV Immature Gran % (Auto) Neut % (Auto) Lymph % (Auto) [place] % (Auto) Eos % (Auto) Baso % (Auto) Lymph # (Auto) [place] # (Auto) Eos # (Auto) Baso # (Auto) Abs Immat Gran (auto) Absolute Neuts (auto) Absolute Nucleated RBC Nucleated RBC % (auto) PT INR VBG pH VBG pCO2 VBG pO2 VBG HCO3 VBG O2 Saturation VBG Base Excess Sodium Potassium Chloride Carbon Dioxide Anion Gap BUN Creatinine Estim Creat Clear Calc Estimated GFR Random Glucose Lactic Acid 1.5 Calcium Phosphorus Magnesium Total Bilirubin Direct Bilirubin AST ALT Alkaline Phosphatase Ammonia Troponin I High Sens < 2.7 C-Reactive Protein Total Protein Albumin TSH Free T4 Urine Color Urine Appearance Urine pH Ur Specific [place] Urine Protein Urine Glucose (UA) Urine Ketones Urine Blood Urine Nitrite Ur Leukocyte Esterase Urine RBC Urine WBC Ur Squamous Epith Cells Calcium Oxalate Crystal Urine Bacteria Hyaline Casts Urine Opiates Screen Urine Fentanyl Screen Ur Barbiturates Screen Ur Phencyclidine Scrn Ur Amphetamines Screen U Benzodiazepines Scrn Urine Cocaine Screen U Marijuana (THC) Screen Ethyl Alcohol COVID-19 (BOB) Negative COVID-19 Clin Com See Note Influenza Type A (GRAY) Influenza Type B (GRAY) Influenza A & B Note 06/19/23 06/19/23 06/19/23 15:44 15:44 15:44 WBC RBC Hgb Hct MCV MCH MCHC RDW Plt Count MPV Immature Gran % (Auto) Neut % (Auto) Lymph % (Auto) [place] % (Auto) Eos % (Auto) Baso % (Auto) Lymph # (Auto) [place] # (Auto) Eos # (Auto) Baso # (Auto) Abs Immat Gran (auto) Absolute Neuts (auto) Absolute Nucleated RBC Nucleated RBC % (auto) PT INR VBG pH VBG pCO2 VBG pO2 VBG HCO3 VBG O2 Saturation VBG Base Excess Sodium Potassium Chloride Carbon Dioxide Anion Gap BUN Creatinine Estim Creat Clear Calc Estimated GFR Random Glucose Lactic Acid Calcium Phosphorus Magnesium Total Bilirubin Direct Bilirubin AST ALT Alkaline Phosphatase Ammonia 28 Troponin I High Sens C-Reactive Protein Total Protein Albumin TSH 0.19 L Free T4 1.47 Urine Color Urine Appearance Urine pH Ur Specific [place] Urine Protein Urine Glucose (UA) Urine Ketones Urine Blood Urine Nitrite Ur Leukocyte Esterase Urine RBC Urine WBC Ur Squamous Epith Cells Calcium Oxalate Crystal Urine Bacteria Hyaline Casts Urine Opiates Screen Urine Fentanyl Screen Ur Barbiturates Screen Ur Phencyclidine Scrn Ur Amphetamines Screen U Benzodiazepines Scrn Urine Cocaine Screen U Marijuana (THC) Screen Ethyl Alcohol < 10 COVID-19 (BOB) COVID-19 Clin Com Influenza Type A (GRAY) Negative Influenza Type B (GRAY) Negative Influenza A & B Note See Note 06/19/23 06/19/23 06/19/23 15:46 16:29 20:05 WBC RBC Hgb Hct MCV MCH MCHC RDW Plt Count MPV Immature Gran % (Auto) Neut % (Auto) Lymph % (Auto) [place] % (Auto) Eos % (Auto) Baso % (Auto) Lymph # (Auto) [place] # (Auto) Eos # (Auto) Baso # (Auto) Abs Immat Gran (auto) Absolute Neuts (auto) Absolute Nucleated RBC Nucleated RBC % (auto) PT INR VBG pH 7.48 H VBG pCO2 31 VBG pO2 50 VBG HCO3 23 VBG O2 Saturation 81.0 VBG Base Excess 0.9 Sodium Potassium Chloride Carbon Dioxide Anion Gap BUN Creatinine Estim Creat Clear Calc Estimated GFR Random Glucose Lactic Acid Calcium Phosphorus Magnesium Total Bilirubin Direct Bilirubin AST ALT Alkaline Phosphatase Ammonia Troponin I High Sens C-Reactive Protein Total Protein Albumin TSH Free T4 Urine Color Yellow Urine Appearance Clear Urine pH 5.5 Ur Specific [place] 1.025 Urine Protein Trace Urine Glucose (UA) Negative Urine Ketones Negative Urine Blood Moderate (2+) H Urine Nitrite Negative Ur Leukocyte Esterase Trace H Urine RBC 6-10 H Urine WBC 0-5 Ur Squamous Epith Cells 0-2 Calcium Oxalate Crystal Present Urine Bacteria None Seen Hyaline Casts 0-2 Urine Opiates Screen Not Detected Urine Fentanyl Screen Not Detected Ur Barbiturates Screen Not Detected Ur Phencyclidine Scrn Not Detected Ur Amphetamines Screen Not Detected U Benzodiazepines Scrn Not Detected Urine Cocaine Screen Not Detected U Marijuana (THC) Screen Not Detected Ethyl Alcohol COVID-19 (BOB) COVID-19 Clin Com Influenza Type A (GRAY) Influenza Type B (GRAY) Influenza A & B Note 06/19/23 06/19/23 06/20/23 23:01 23:04 04:40 WBC 11.1 H RBC 3.41 L D Hgb 9.5 L D Hct 30.5 L D MCV 89.4 MCH 27.9 MCHC 31.1 RDW 15.4 Plt Count 340 D MPV 9.8 Immature Gran % (Auto) 0.5 H Neut % (Auto) 79.4 H Lymph % (Auto) 13.1 L [place] % (Auto) 5.4 Eos % (Auto) 1.1 Baso % (Auto) 0.5 Lymph # (Auto) 1.5 [place] # (Auto) 0.6 Eos # (Auto) 0.1 Baso # (Auto) 0.1 Abs Immat Gran (auto) 0.05 H Absolute Neuts (auto) 8.8 H Absolute Nucleated RBC 0.000 Nucleated RBC % (auto) 0.0 PT INR VBG pH 7.42 VBG pCO2 26 VBG pO2 101 VBG HCO3 17 L VBG O2 Saturation 99.0 VBG Base Excess -5.2 Sodium Potassium Chloride Carbon Dioxide Anion Gap BUN Creatinine Estim Creat Clear Calc Estimated GFR Random Glucose Lactic Acid 2.0 Calcium Phosphorus Magnesium Total Bilirubin Direct Bilirubin AST ALT Alkaline Phosphatase Ammonia Troponin I High Sens C-Reactive Protein Total Protein Albumin TSH Free T4 Urine Color Urine Appearance Urine pH Ur Specific [place] Urine Protein Urine Glucose (UA) Urine Ketones Urine Blood Urine Nitrite Ur Leukocyte Esterase Urine RBC Urine WBC Ur Squamous Epith Cells Calcium Oxalate Crystal Urine Bacteria Hyaline Casts Urine Opiates Screen Urine Fentanyl Screen Ur Barbiturates Screen Ur Phencyclidine Scrn Ur Amphetamines Screen U Benzodiazepines Scrn Urine Cocaine Screen U Marijuana (THC) Screen Ethyl Alcohol COVID-19 (BOB) COVID-19 Clin Com Influenza Type A (GRAY) Influenza Type B (GRAY) Influenza A & B Note 06/20/23 04:40 WBC RBC Hgb Hct MCV MCH MCHC RDW Plt Count MPV Immature Gran % (Auto) Neut % (Auto) Lymph % (Auto) [place] % (Auto) Eos % (Auto) Baso % (Auto) Lymph # (Auto) [place] # (Auto) Eos # (Auto) Baso # (Auto) Abs Immat Gran (auto) Absolute Neuts (auto) Absolute Nucleated RBC Nucleated RBC % (auto) PT INR VBG pH VBG pCO2 VBG pO2 VBG HCO3 VBG O2 Saturation VBG Base Excess Sodium 142 Potassium 3.0 L D Chloride 110 H Carbon Dioxide 24 Anion Gap 11 L BUN 5 L Creatinine 0.39 L Estim Creat Clear Calc 122.6 Estimated GFR > 60 Random Glucose 81 Lactic Acid Calcium 9.0 Phosphorus 2.4 L Magnesium 1.6 Total Bilirubin Direct Bilirubin AST ALT Alkaline Phosphatase Ammonia Troponin I High Sens C-Reactive Protein Total Protein Albumin 3.6 TSH Free T4 Urine Color Urine Appearance Urine pH Ur Specific [place] Urine Protein Urine Glucose (UA) Urine Ketones Urine Blood Urine Nitrite Ur Leukocyte Esterase Urine RBC Urine WBC Ur Squamous Epith Cells Calcium Oxalate Crystal Urine Bacteria Hyaline Casts Urine Opiates Screen Urine Fentanyl Screen Ur Barbiturates Screen Ur Phencyclidine Scrn Ur Amphetamines Screen U Benzodiazepines Scrn Urine Cocaine Screen U Marijuana (THC) Screen Ethyl Alcohol COVID-19 (BOB) COVID-19 Clin Com Influenza Type A (GRAY) Influenza Type B (GRAY) Influenza A & B Note Progress Note: A&P Assessment and plan (1) Decubitus ulcer, unstageable with infection: Status: Acute (2) Severe sepsis: Status: Acute (3) UTI (urinary tract infection): Status: Acute (4) Colovaginal fistula: Status: Acute (5) Soft tissue abscess: Status: Acute (6) Dementia: Status: Acute (7) S/P Girdlestone procedure: Status: Acute (8) Osteomyelitis of right hip: Status: Acute (9) Pressure injury of ankle, unstageable: Status: Acute (10) Pressure injury of sacral region, stage 3: Status: Acute Plan Assessment: 58-year-old lady with multiple medical issues admitted with lethargy and sepsis Plan: Neuro: No acute issues. Underlying advanced dementia Cardiac: No acute issues. Pulmonary: No acute issues. Renal: No acute issues. Endo: No acute issues. GI: No acute issues. ID: Chronic right hip osteomyelitis/ abscess. New iliacus abscess. General and orthopedic surgery evaluation requested. History of colovaginal fistula and MRSA. Continue broad-spectrum antibiotics. Cultures are pending. Heme/Onc: No acute issues. Psych: No acute issues. Miscellaneous: No acute issues. Prophylaxis: Heparin Diet: NPO Quality Stroke Does the patient have a stroke diagnosis?: No VTE Prior VTE?: No VTE Risk Level:: Medical - moderate - high VTE Device Contraindication: Treatment Not Indicated VTE Drug Contraindication: N/A - Med Ordered
[2023-06-20] MEDS: vancomycin HCL 1,000 MG in 0.9 % Sodium Chloride 250 ML 270 MG IV ×2 (10:37→22:03)
[2023-06-20 10:45] LABS: Folate 16.3 ng/mL (> or = 4.0); Vitamin B12 540 pg/mL (200-900)
[2023-06-20] MEDS: Acetaminophen 325 MG TABLET 650 MG PO ×2 (11:03→20:54)
[2023-06-20] MEDS: Levothyroxine Sodium 100 MCG TABLET PO (11:04)
[2023-06-20] MEDS: Dextrose 5 % and Lactated Ring 1,000 ML 80 ML IVCONT (15:13)
--- NOTE | 2023-06-20 15:26 | MHC.CM.PN ---
Met with pt and spouse Jason to review d/c planning needs: Pt unable to participate in CM assessment d/t baseline dementia and acute medical condition. 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 Pt is totally dependent for all care needs and cannot propel self or ambulate. Jason states she has a dion, w/c, power chair, walker and all needed medical equipment. Jason has been trained by [facility] for IV ATB administration and wound care. Pt had been at [facility] and [facility] in the past - Jason states he will never send her to another facility d/t serious care concerns. I have the training and everything she needs at home. Discussed VNA for skilled visits. Jason states CCA RN assists and he declines VNA at this time. HCP and guardianship reviewed and on file: Pt will need BLS to home. CM to follow for d/c planning needs.
--- NOTE | 2023-06-20 18:58 | PC.NURSE ---
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 Bernice Jay [phone].
[2023-06-21] MEDS: Piperacillin Sodium/Tazobactam 3.375 GM in 0.9 % Sodium Chloride 50 ML IV ×4 (02:09→19:47)
[2023-06-21] MEDS: 0.9 % Sodium Chloride Flush 3 ML SYRINGE IVFLUSH ×3 (02:09→13:25)
[2023-06-21] MEDS: Albumin Human 25 % 100 ML IV ×2 (02:09→08:30)
[2023-06-21 04:00] VITALS: BP 130/61; PULSE 82; RESP 18; TEMP 36; O2SAT 95
[2023-06-21] MEDS: Dextrose 5 % and Lactated Ring 1,000 ML 80 ML IVCONT (04:09)
[2023-06-21] MEDS: Levothyroxine Sodium 100 MCG TABLET PO (05:52)
[2023-06-21 06:00] VITALS: BMI 17.0
[2023-06-21 07:40] VITALS: BP 112/58; PULSE 76; RESP 16; TEMP 36.7; O2SAT 95
--- NOTE | 2023-06-21 07:55 | PM.PNGS ---
Subjective Subjective Date of Service: 06/21/23 Patient reports: feels better Interval history: The patient is improved from my evaluation yesterday. She is communicative and answers yes or no questions. She denies any abdominal pain and she confirmed that she would like me to speak with her . She denies any chest pain and difficulty breathing or shortness of breath. Physical Exam Vital Signs: Vital Signs: Last Vital Signs Temp 98.0 F 06/21/23 07:40 Pulse 76 06/21/23 07:40 Resp 16 06/21/23 07:40 BP 112/58 L 06/21/23 07:40 Pulse Ox 95 06/21/23 07:40 O2 Del Method Room Air 06/21/23 04:00 BMI result Body Mass Index 17.0 On exam she is improved in mentation She is nontoxic She is having no respiratory distress Her abdomen is soft with no tenderness Objective Data Active Medications Acetaminophen (Acetaminophen 325 Mg Tablet) 650 mg PO Q6H PRN PRN Reason: Pain, Mild (Pain Scale 1-3) Last Admin: 06/20/23 20:54 Dose: 650 mg Documented By: CARLYLE Docusate Sodium (Docusate Sodium 100 Mg Capsule) 100 mg PO DAILY PRN PRN Reason: Constipation Heparin Sodium (Porcine) (Heparin Sodium,Porcine 5,000 Unit/Ml Vial) 5,[address] [facility] Last Admin: 06/20/23 20:55 Dose: 5,000 unit Documented By: CARLYLE Vancomycin HCl 1,000 mg/ (Sodium Chloride) 270 mls @ 270 mls/hr IV Q12H [facility] Last Infusion: 06/20/23 23:04 Dose: 0 mls/hr Documented By: JESS Piperacillin Sod/Tazobactam (Sod 3.375 gm/ Sodium Chloride) 50 mls @ 100 mls/hr IV Q6H [facility] Last Infusion: 06/21/23 02:46 Dose: 0 mls/hr Documented By: CARLYLE Albumin Human (Kedbumin 25 %) 100 mls @ 100 mls/hr IV Q6H [facility] Stop: 06/21/23 09:59 Last Infusion: 06/21/23 03:37 Dose: 0 mls/hr Documented By: JESS Dextrose/Lactated Ringer's (D5lr) 1,000 mls @ 80 mls/hr IVCONT .[id number] [facility] Last Admin: 06/21/23 04:09 Dose: 80 mls/hr Documented By: CARLYLE Levothyroxine Sodium (Levothyroxine Sodium 100 Mcg Tablet) 100 mcg PO DAILY@0600 [facility] Last Admin: 06/21/23 05:52 Dose: 100 mcg Documented By: CARLYLE Ondansetron HCl (Ondansetron Hcl 4 Mg/2 Ml Vial) 4 mg IVPUSH Q8H PRN PRN Reason: Nausea and Vomiting Pharmacy Consult (Consult Rx Vancomycin Dosing) 1 each MISCELLANE DAILY PRN PRN Reason: Consult order Sodium Chloride (0.9 % Sodium Chloride Flush 3 Ml Syringe) [address] [facility] Last Admin: 06/21/23 02:09 Dose: 3 ml Documented By: CARLYLE Labs 06/20/23 04:40 06/20/23 04:40 Labs: Laboratory Results - last 24 hr 06/20/23 06/20/23 09:42 09:42 Prealbumin 11.0 L Vitamin B12 540 Folate 16.3 wbc 7.1, Hb 9.1, Plts 311k See electrolytes from today Microbiology Microbiology Results: Microbiology 06/19/23 16:21 Blood Culture - Preliminary Blood - Venous No growth after 24 hours. 06/19/23 15:44 Blood Culture - Preliminary Blood - Venous No growth after 24 hours. 06/20/23 08:22 Gram Stain - Final Hip Right Procedures Date of Service Date of Service: 06/21/23 Progress Note: A&P Assessment and plan (1) UTI (urinary tract infection): Status: Acute (2) Soft tissue abscess: Status: Acute (3) Decubitus ulcer, unstageable with infection: Status: Acute (4) Colovaginal fistula: Status: Acute (5) Protein malnutrition: Status: Acute Plan Patient should have percutaneous sampling of the pelvic abscess today; the collection is too small to leave a drain. In addition, percutaneous aspiration of the chronic seroma verses right hip abscess should be done to assess organisms, if present. I will return to have a discussion regarding nutritional supplementation since the patient has significant protein malnutrition and likely would not survive takedown of a colovaginal fistula or major orthopedic procedure. Chronic antibiotic suppression regarding the fistula is the other option, but given the inherent risks of non operative and operative intervention, a discussion will be required with the patient's . Time Spent With Patient Time: Total time managing care of this patient today ____ minutes. Quality Stroke Does the patient have a stroke diagnosis?: No VTE Prior VTE?: No VTE Risk Level:: Medical - moderate - high VTE Device Contraindication: Treatment Not Indicated VTE Drug Contraindication: N/A - Med Ordered
[2023-06-21] MEDS: Heparin Sodium,Porcine 5,000 UNIT/ML VIAL 5000 UNIT SUBCUT ×2 (08:30→19:46)
[2023-06-21 09:19] LABS: MANUAL DIFF FLAG NO
[2023-06-21 09:27] LABS: Basophils Absolute Auto 0.1 X10*3/uL (0.0-0.2); Basophils Percent Auto 0.7 % (0-2); Eosinophils Absolute Auto 0.1 X10*3/uL (0.0-0.4); Eosinophils Percent Auto 1.8 % (0-4); Hemoglobin 9.1 g/dl (12.0-16.0); Imm Gran Abs Auto 0.03 X10*3/uL (0.00-0.03); Imm Gran Pct Auto 0.4 % (0.0-0.4); Lymphocytes Absolute Auto 1.2 X10*3/uL (1.2-4.9); Lymphocytes Percent Auto 16.5 % (20-40); Mean Corpuscular HGB Conc 32.5 g/dl (31.0-35.0); Mean Corpuscular Hemoglobin 28.1 pg (27.0-33.0); Mean Corpuscular Volume 86.4 fL (80.0-98.0); Mean Platelet Volume 9.7 fL (9.4-12.3); Monocytes Absolute Auto 0.4 X10*3/uL (0.1-1.2); Monocytes Percent Auto 5.2 % (2-11); Neutrophils Absolute Auto 5.3 x10*3/uL (2.0-8.3); Neutrophils Percent Auto 75.4 % (45-73); Platelet Count 311 X10*3/uL (160-400); Red Blood Count 3.24 X10*6/uL (4.20-5.50); Red Cell Distribution Width 14.6 % (11.0-16.0); White Blood Count 7.1 X10*3/uL (4.8-10.8)
[2023-06-21 09:58] LABS: Albumin Level 4.5 g/dL (3.5-5.0); Anion Gap 14 (12-20); Blood Urea Nitrogen < 3 mg/dL (9-16); Carbon Dioxide 25 mmol/L (22-29); Chloride 107 mmol/L (96-108); Creatinine Clr Calc Pharmacy 90.5; Estimated Glomerular Filt Rate > 60; Glucose Random 96 mg/dL (60-115); Magnesium 1.8 mg/dL (1.6-2.6); Phosphorus 2.6 mg/dL (2.7-4.5); Potassium 2.7 mmol/L (3.3-5.1); Sodium 143 mmol/L (135-145)
--- NOTE | 2023-06-21 10:18 | HE.PHANOTE ---
Re: vanco dosing SCr today 0.45 and trough came back at 20.0 (was drawn over 1 hour late so would have been higher if drawn on time). Reducing dose to 750 q12 and recheck level tomorrow after 2 more doses given to ensure correct dosing.
[2023-06-21] MEDS: vancomycin HCL 750 MG in 0.9 % Sodium Chloride 250 ML 265 MG IV ×2 (10:59→23:49)
[2023-06-21 11:13] VITALS: BP 123/64; PULSE 76; RESP 18; TEMP 36.5; O2SAT 95
--- NOTE | 2023-06-21 11:34 | P.PNIM_ITS ---
Subjective Subjective Date of Service: 06/22/23 Interval History: Patient resting in bed, said yes to right hip pain , otherwise denies chest pain, no headache, no dizziness, events from last night noted patient had low blood pressure that improved this morning, at bedside inform the patient has recurrent episode of hypotension, has been takes care of patient at home, she takes pureed and thin liquid diet and 3 cans of Ensure at present patient is NPO for IR drainage of right iliac abscess Review of Systems All other system reviewed and negative. Physical Exam Vital Signs: Vital Signs: Last Vital Signs Temp 97.7 F 06/21/23 11:13 Pulse 76 06/21/23 11:13 Resp 18 06/21/23 11:13 BP 123/64 06/21/23 11:13 Pulse Ox 95 06/21/23 11:13 O2 Del Method Room Air 06/21/23 11:13 BMI result Body Mass Index 17.0 Const: Other: General?appears ch ronically ill, tre ke alert, no acute distress.? Neck s upple no JVD. CVS? regular rate rhyt hm, Respiratory jacob ngs clear to auscu ltation, no respir atory distress, no wheeze, no rhonch i. Gastrointestina l abdomen soft, no n tender, bowel so unds audible, no g uarding , no rigid ity. Extremities c ontraction deformi ty both upper and lower extremities, knees flexed Righ t hip dressing in place, no drainage noted Neuro spee ch clear Skin? sac ral wound dressing in place, right h ip wound dressing in place no surrou nding erythema or warmth Psych appro priate affect Objective Data Active Medications Acetaminophen (Acetaminophen 325 Mg Tablet) 650 mg PO Q6H PRN PRN Reason: Pain, Mild (Pain Scale 1-3) Last Admin: 06/20/23 20:54 Dose: 650 mg Documented By: CARLYLE Docusate Sodium (Docusate Sodium 100 Mg Capsule) 100 mg PO DAILY PRN PRN Reason: Constipation Heparin Sodium (Porcine) (Heparin Sodium,Porcine 5,000 Unit/Ml Vial) 5,000 unit SUBCUT Q12H [facility] Last Admin: 06/21/23 08:30 Dose: 5,000 unit Documented By: EDUARDO Piperacillin Sod/Tazobactam (Sod 3.375 gm/ Sodium Chloride) 50 mls @ 100 mls/hr IV Q6H [facility] Last Infusion: 06/21/23 09:24 Dose: 0 mls/hr Documented By: EDUARDO Vancomycin HCl 750 mg/ Sodium (Chloride) 265 mls @ 265 mls/hr IV Q12H [facility] Last Admin: 06/21/23 10:59 Dose: 265 mls/hr Documented By: EDUARDO Potassium Chloride (Potassium Chloride/H20) 10 meq in 100 mls @ 100 mls/hr IV Q1H [facility] Stop: 06/21/23 13:29 Potassium Chloride/Dextrose/Sod Cl (Kcl 40 Meq In 5% Dex/0.9% Sod) 40 meq in 1,000 mls @ 100 mls/hr IVCONT .Q10H [facility] Stop: 06/21/23 21:29 Levothyroxine Sodium (Levothyroxine Sodium 100 Mcg Tablet) 100 mcg PO DAILY@0600 [facility] Last Admin: 06/21/23 05:52 Dose: 100 mcg Documented By: CARLYLE Ondansetron HCl (Ondansetron Hcl 4 Mg/2 Ml Vial) 4 mg IVPUSH Q8H PRN PRN Reason: Nausea and Vomiting Pharmacy Consult (Consult Rx Vancomycin Dosing) 1 each MISCELLANE DAILY PRN PRN Reason: Consult order Potassium Chloride (Potassium Chloride Er 20 Meq Tab.Er.Prt) 40 meq PO ONCE ONE Stop: 06/21/23 11:33 Sodium Chloride (0.9 % Sodium Chloride Flush 3 Ml Syringe) 3 ml IVFLUSH QSHIFT [facility] Last Admin: 06/21/23 08:30 Dose: 3 ml Documented By: EDUARDO Labs 06/21/23 09:15 06/21/23 09:15 Labs: Laboratory Results - last 24 hr 06/21/23 06/21/23 06/21/23 09:15 09:15 09:15 MCV 86.4 MCH 28.1 MCHC 32.5 RDW 14.6 Plt Count 311 MPV 9.7 Immature Gran % (Auto) 0.4 Neut % (Auto) 75.4 H Lymph % (Auto) 16.5 L [place] % (Auto) 5.2 Eos % (Auto) 1.8 Baso % (Auto) 0.7 Lymph # (Auto) 1.2 [place] # (Auto) 0.4 Eos # (Auto) 0.1 Baso # (Auto) 0.1 Abs Immat Gran (auto) 0.03 Absolute Neuts (auto) 5.3 Absolute Nucleated RBC 0.000 Nucleated RBC % (auto) 0.0 Anion Gap 14 Estim Creat Clear Calc 90.5 Estimated GFR > 60 Random Glucose 96 Calcium 10.0 D Phosphorus 2.6 L Magnesium 1.8 Albumin 4.5 Vancomycin Trough 20.0 Microbiology Microbiology Results: Microbiology 06/19/23 16:21 Blood Culture - Preliminary Blood - Venous No growth after 24 hours. 06/19/23 15:44 Blood Culture - Preliminary Blood - Venous No growth after 24 hours. 06/20/23 08:22 Gram Stain - Final Hip Right Assessment and Plan (1) Protein malnutrition: Status: Acute (2) Soft tissue abscess: Status: Acute (3) Severe sepsis: Status: Acute Plan 58-year-old female with history of colovaginal fistula, hypothyroidism, advanced dementia minimally verbal at baseline, complete heart block s/p PPM, history of MRSA and osteomyelitis of the right hip who is a former smoker admitted for severe sepsis of unclear source #Severe sepsis due to right hip and right iliac abscess. - WBC normalized ,no recurrent fever , blood cultures negative so far -UA benign, CXR without acute abnormality. CT abd/pelvis showed oval elongated collection within the right iliac muscle and significant deformity of the right hip flexure as well as posterior collection -Lactic acid normal ,multiple episodes of hypotension continue IV fluids. -seen by General surgery they recommend IR drainage of right iliac muscle and right hip fluid collection -NPO for above procedure # acute hypokalemia will aggressively replace and follow labs #Hypotension -due to severe sepsis -Continue IVF as above # acute metabolic encephalopathy -baseline advanced dementia, due to infection as above. Ammonia normal. Renal function, lytes normal. Free T4 normal. Head CT negative for acute intracranial abnormality Encephalopathy resolved, seemed to be at baseline #Hypothyroidism -TSH low, normal free T4. Likely sick euthyroid -Continue synthroid #Colovaginal fistula seen by General surgery they recommend to stabilize nutritional status prior to any major surgery, nutrition consult obtained # severe malnutrition continue high protein diet and supplements. DVT prophylaxis-heparin Full code- Patient requires inpatient stay for management of severe sepsis requiring IV antibiotics and aggressive IV fluid resuscitation given multiple episodes of hypotension Time Spent With Patient Time: Total time managing care of this patient today ____ minutes. Quality Stroke Does the patient have a stroke diagnosis?: No VTE Prior VTE?: No VTE Risk Level:: Medical - moderate - high VTE Device Contraindication: Treatment Not Indicated VTE Drug Contraindication: N/A - Med Ordered
[2023-06-21 12:10] VITALS: BMI 17.0
--- NOTE | 2023-06-21 12:17 | MHC.CLN ---
RE: CONSULT PT IS SEVERELY MALNOURISHED PT WITH MODERATELY DEPLETED SUBCUTANEOUS FAT AND MUSCLE MASS, BMI 17, AND PT TRIGGERS FOR 14% SIGNIFICANT WT LOSS X 6 MONTHS. PT IS A VERY SLOW EATER. 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 PT PREVIOUSLY CONSUMED PUREED DIET WITH 1:1 FEED.PT DRINKS WILD HOOKS BOOST AT HOME. PT IS CURRENTLY NPO IF DIET TO ADVANCE RECOMMEND ADDING HIGH PO PROTEIN SUPPLEMENTS TO PROMOTE WOUND HEALING MONITOR FOR DIET ADVANCEMENT FOLLOWING WITH TEAM SEE ALSO FULL CLINICAL NUTRITION ASSESSMENT
[2023-06-21] MEDS: Potassium Chloride ER 20 MEQ TAB.ER.PRT 40 MEQ PO (12:39)
[2023-06-21] MEDS: Potassium Chloride/H20 10 MEQ/100 ML PIGGYBACK 100 MEQ IV ×2 (12:39→13:12)
[2023-06-21] MEDS: KCl 20 mEq in 0.9 % Sodium ChL 20 MEQ/1,000 ML IV.SOLN 100 MEQ IVCONT (13:13)
[2023-06-21 15:20] VITALS: BP 132/69; PULSE 75; RESP 20; TEMP 36.3; O2SAT 96
[2023-06-21 15:37] LABS: Potassium 3.2 mmol/L (3.3-5.1)
[2023-06-21] MEDS: Potassium Chloride ER 20 MEQ TAB.ER.PRT PO (16:25)
[2023-06-21 18:35] VITALS: BP 121/58; PULSE 95; RESP 20; TEMP 36.4; O2SAT 95
[2023-06-21 22:32] VITALS: BP 141/73; PULSE 86; RESP 18; TEMP 36; O2SAT 96
[2023-06-22] MEDS: Piperacillin Sodium/Tazobactam 3.375 GM in 0.9 % Sodium Chloride 50 ML IV ×4 (02:36→21:42)
[2023-06-22] MEDS: 0.9 % Sodium Chloride Flush 3 ML SYRINGE IVFLUSH ×3 (02:44→23:42)
[2023-06-22 02:50] VITALS: BP 120/66; PULSE 92; RESP 22; TEMP 36.1; O2SAT 94
[2023-06-22] MEDS: Levothyroxine Sodium 100 MCG TABLET PO (05:17)
[2023-06-22 07:18] VITALS: BP 126/61; PULSE 74; RESP 16; TEMP 36.6; O2SAT 95
--- NOTE | 2023-06-22 07:23 | P.PNGS_ITS ---
Subjective Subjective Date of Service: 06/22/23 Interval history: The patient looks better this morning and is communicating in one-word sentences. She does note that she feels cold. The patient's is at the bedside and questioned whether or not Dr. Green would be seeing his . The patient states that he lost the phone number and had plan to discuss the colovaginal fistula with him. Physical Exam Vital Signs: Vital Signs: Last Vital Signs Temp 96.9 F 06/22/23 02:50 Pulse 92 06/22/23 02:50 Resp 22 H 06/22/23 02:50 BP 120/66 06/22/23 02:50 Pulse Ox 94 06/22/23 02:50 O2 Del Method Room Air 06/22/23 02:50 BMI result Body Mass Index 17.0 On exam, the patient is nontoxic She is answering yes or no in one-word sentences She is in no acute respiratory distress Her abdomen is nontender Objective Data Active Medications Acetaminophen (Acetaminophen 325 Mg Tablet) 650 mg PO Q6H PRN PRN Reason: Pain, Mild (Pain Scale 1-3) Last Admin: 06/20/23 20:54 Dose: 650 mg Documented By: CARLYLE Docusate Sodium (Docusate Sodium 100 Mg Capsule) 100 mg PO DAILY PRN PRN Reason: Constipation Heparin Sodium (Porcine) (Heparin Sodium,Porcine 5,000 Unit/Ml Vial) 5,000 unit SUBCUT Q12H [facility] Last Admin: 06/21/23 19:46 Dose: 5,000 unit Documented By: CARLYLE Piperacillin Sod/Tazobactam (Sod 3.375 gm/ Sodium Chloride) 50 mls @ 100 mls/hr IV Q6H [facility] Last Infusion: 06/22/23 03:47 Dose: 0 mls/hr Documented By: CARLYLE Vancomycin HCl 750 mg/ Sodium (Chloride) 265 mls @ 265 mls/hr IV Q12H [facility] Last Infusion: 06/22/23 00:57 Dose: 0 mls/hr Documented By: CARLYLE Levothyroxine Sodium (Levothyroxine Sodium 100 Mcg Tablet) 100 mcg PO DAILY@0600 [facility] Last Admin: 06/22/23 05:17 Dose: 100 mcg Documented By: CARLYLE Ondansetron HCl (Ondansetron Hcl 4 Mg/2 Ml Vial) 4 mg IVPUSH Q8H PRN PRN Reason: Nausea and Vomiting Pharmacy Consult (Consult Rx Vancomycin Dosing) 1 each MISCELLANE DAILY PRN PRN Reason: Consult order Sodium Chloride (0.9 % Sodium Chloride Flush 3 Ml Syringe) [facility] Last Admin: 06/22/23 02:44 Dose: 3 ml Documented By: CARLYLE Labs 06/21/23 09:15 06/21/23 14:46 Labs: Laboratory Results - last 24 hr 06/21/23 06/21/23 06/21/23 09:15 09:15 09:15 MCV 86.4 MCH 28.1 MCHC 32.5 RDW 14.6 Plt Count 311 MPV 9.7 Immature Gran % (Auto) 0.4 Neut % (Auto) 75.4 H Lymph % (Auto) 16.5 L [place] % (Auto) 5.2 Eos % (Auto) 1.8 Baso % (Auto) 0.7 Lymph # (Auto) 1.2 [place] # (Auto) 0.4 Eos # (Auto) 0.1 Baso # (Auto) 0.1 Abs Immat Gran (auto) 0.03 Absolute Neuts (auto) 5.3 Absolute Nucleated RBC 0.000 Nucleated RBC % (auto) 0.0 Anion Gap 14 Estim Creat Clear Calc 90.5 Estimated GFR > 60 Random Glucose 96 Calcium 10.0 D Phosphorus 2.6 L Magnesium 1.8 Albumin 4.5 Vancomycin Trough 20.0 Microbiology Microbiology Results: Microbiology 06/19/23 16:21 Blood Culture - Preliminary Blood - Venous No growth after 48 hours. 06/19/23 15:44 Blood Culture - Preliminary Blood - Venous No growth after 48 hours. 06/20/23 04:40 Urine Culture - Final Urine clean catch - Clean Catch Midstream 06/20/23 08:22 Gram Stain - Final Hip Right Routine Culture - Preliminary Culture in progress. Procedures Date of Service Date of Service: 06/22/23 Progress Note: A&P Assessment and plan (1) Protein malnutrition: Status: Acute (2) Soft tissue abscess: Status: Acute (3) Decubitus ulcer, unstageable with infection: Status: Acute (4) UTI (urinary tract infection): Status: Acute (5) Encephalopathy: Status: Acute (6) Colovaginal fistula: Status: Acute (7) Osteomyelitis of right hip: Status: Acute (8) S/P Girdl[place] procedure: Status: Acute (9) Dementia: Status: Acute Plan Explained to the patient's her underlying protein malnutrition; he thanked me for my time and stated he wished to follow-up with Dr. Green. There are no acute findings to mandate exploration at this time. Will sign off. Time Spent With Patient Time: Total time managing care of this patient today ____ minutes. Quality Stroke Does the patient have a stroke diagnosis?: No VTE Prior VTE?: No VTE Risk Level:: Medical - moderate - high VTE Device Contraindication: Treatment Not Indicated VTE Drug Contraindication: N/A - Med Ordered
[2023-06-22] MEDS: Acetaminophen 325 MG TABLET 650 MG PO ×2 (08:52→18:12)
[2023-06-22 09:59] LABS: Hematocrit 30.4 % (37.0-47.0); Hemoglobin 9.9 g/dl (12.0-16.0); Mean Corpuscular HGB Conc 32.6 g/dl (31.0-35.0); Mean Corpuscular Hemoglobin 27.8 pg (27.0-33.0); Mean Corpuscular Volume 85.4 fL (80.0-98.0); Platelet Count 399 X10*3/uL (160-400); Red Blood Count 3.56 X10*6/uL (4.20-5.50); White Blood Count 6.8 X10*3/uL (4.8-10.8)
--- NOTE | 2023-06-22 10:13 | MHC.CM.PN ---
Per ROUNDS discussion/MD's request, CM has requested a Hospice Informational. FILIPE awaits word from [facility] as to when Informational will take place. CM will follow.
[2023-06-22 10:14] LABS: Vancomycin Random 15.6 mcg/mL (15-20)
--- NOTE | 2023-06-22 10:22 | HE.PHANOTE ---
Re: vanco dosing level 15.6 today. It may continue to fall even more as dose was decreased 24 hours ago. Level will be checked again 06/23 @0900 to ensure appropriate treatment.
[2023-06-22 10:28] LABS: Anion Gap 15 (12-20); Blood Urea Nitrogen 3 mg/dL (9-16); Calcium 10.1 mg/dL (8.4-10.2); Carbon Dioxide 22 mmol/L (22-29); Chloride 109 mmol/L (96-108); Creatinine Clr Calc Pharmacy 76.8; Estimated Glomerular Filt Rate > 60; Glucose Random 75 mg/dL (60-115); Potassium 3.5 mmol/L (3.3-5.1); Sodium 142 mmol/L (135-145)
[2023-06-22] MEDS: vancomycin HCL 750 MG in 0.9 % Sodium Chloride 250 ML 265 MG IV ×2 (10:49→23:43)
[2023-06-22 11:33] VITALS: BP 123/61; PULSE 72; RESP 16; TEMP 36.4; O2SAT 95
--- NOTE | 2023-06-22 12:18 | MHC.CM.PN ---
SYDNIE/CATHERINE conducted a Hospice Informational today with Patient's /Guardian; would like to speak to his Sister, prior to making any decisions. MD made aware and CM will continue to follow.
--- NOTE | 2023-06-22 12:40 | MHC.CM.PN ---
CM met with Patient and her /Guardian at bedside. Guardian has decided against Hospice. has been made aware.CM will follow.
--- NOTE | 2023-06-22 15:08 | HO.PM.IMPN ---
Subjective Subjective Date of Service: 06/22/23 Interval History: Ill-appearing, said yes to hip pain, minimally verbal falls back to sleep says no to all other review of system, at bedside, patient NPO for IR drainage of right hip abscess, no acute events overnight. Review of Systems All other system reviewed and negative. Physical Exam Vital Signs: Vital Signs: Last Vital Signs Temp 97.5 F 06/22/23 11:33 Pulse 72 06/22/23 11:33 Resp 16 06/22/23 11:33 BP 123/61 06/22/23 11:33 Pulse Ox 95 06/22/23 11:33 O2 Del Method Room Air 06/22/23 11:33 BMI result Body Mass Index 17.0 Const: Other: General?appears chronically ill, awake alert, no acute?distress.? Neck supple no JVD. CVS??regular rate rhythm, Respiratory lungs clear to auscultation, no respiratory distress, no?wheeze, no rhonchi. Gastrointestinal abdomen soft, non tender, bowel sounds audible, no guarding , no rigidity. Extremities contraction deformity both upper and lower extremities,?knees flexed Right hip dressing inplace, no drainage?noted Neuro? speech clear Skin? sacral wound dressing?in place, right hip wound dressing in place no surrounding erythema or warmth Psych appropriate affect Objective Data Active Medications Acetaminophen (Acetaminophen 325 Mg Tablet) 650 mg PO Q6H PRN PRN Reason: Pain, Mild (Pain Scale 1-3) Last Admin: 06/22/23 08:52 Dose: 650 mg Documented By: LOVELY Docusate Sodium (Docusate Sodium 100 Mg Capsule) 100 mg PO DAILY PRN PRN Reason: Constipation Heparin Sodium (Porcine) (Heparin Sodium,Porcine 5,000 Unit/Ml Vial) 5,000 unit SUBCUT Q12H [facility] Last Admin: 06/22/23 08:47 Dose: Not Given Documented By: LOVELY Non-Admin Reason: Physician Held Med Piperacillin Sod/Tazobactam (Sod 3.375 gm/ Sodium Chloride) 50 mls @ 100 mls/hr IV Q6H [facility] Last Infusion: 06/22/23 13:55 Dose: 0 mls/hr Documented By: LOVELY Vancomycin HCl 750 mg/ Sodium (Chloride) 265 mls @ 265 mls/hr IV Q12H [facility] Last Infusion: 06/22/23 11:50 Dose: 0 mls/hr Documented By: LOVELY Levothyroxine Sodium (Levothyroxine Sodium 100 Mcg Tablet) 100 mcg PO DAILY@0600 [facility] Last Admin: 06/22/23 05:17 Dose: 100 mcg Documented By: CARLYLE Ondansetron HCl (Ondansetron Hcl 4 Mg/2 Ml Vial) 4 mg IVPUSH Q8H PRN PRN Reason: Nausea and Vomiting Pharmacy Consult (Consult Rx Vancomycin Dosing) 1 each MISCELLANE DAILY PRN PRN Reason: Consult order Sodium Chloride (0.9 % Sodium Chloride Flush 3 Ml Syringe) 3 ml IVFLUSH QSHIFT [facility] Last Admin: 06/22/23 08:41 Dose: 3 ml Documented By: LOVELY Labs 06/22/23 09:23 06/22/23 09:23 Labs: Laboratory Results - last 24 hr 06/22/23 06/22/23 06/22/23 09:23 09:23 09:23 MCV 85.4 MCH 27.8 MCHC 32.6 RDW 15.0 Plt Count 399 D MPV 10.0 Absolute Nucleated RBC 0.000 Nucleated RBC % (auto) 0.0 Anion Gap 15 Estim Creat Clear Calc 76.8 Estimated GFR > 60 Random Glucose 75 Calcium 10.1 Random Vancomycin 15.6 Microbiology Microbiology Results: Microbiology 06/20/23 08:22 Gram Stain - Final Hip Right Routine Culture - Preliminary Gram negative jimi 06/19/23 16:21 Blood Culture - Preliminary Blood - Venous No growth after 48 hours. 06/19/23 15:44 Blood Culture - Preliminary Blood - Venous No growth after 48 hours. 06/20/23 04:40 Urine Culture - Final Urine clean catch - Clean Catch Midstream Assessment and Plan (1) Protein malnutrition: Status: Acute (2) Soft tissue abscess: Status: Acute (3) Severe sepsis: Status: Acute Plan 58-year-old female with history of colovaginal fistula, hypothyroidism, advanced dementia minimally verbal at baseline, complete heart block s/p PPM, history of MRSA and osteomyelitis of the right hip who is a former smoker admitted for severe sepsis of unclear source #Severe sepsis due to right hip and right iliac abscess. - WBC normalized ,no recurrent fever , blood cultures negative -UA benign, CXR without acute abnormality. CT abd/pelvis showed oval elongated collection within the right iliac muscle and significant deformity of the right hip flexure as well as posterior collection -Lactic acid normal , hypotension resolved -seen by General surgery they recommend IR drainage of right iliac muscle and right hip fluid collection -NPO for above procedure, follow sensitivities and adjust antibiotics, continue IV vancomycin and Zosyn started on 06/20 # acute hypokalemia repleted and normalized #Hypotension -due to severe sepsis, resolved. # acute metabolic encephalopathy -baseline advanced dementia, due to infection as above. Ammonia normal. Renal function, lytes normal. Free T4 normal. Head CT negative for acute intracranial abnormality Encephalopathy resolved, seemed to be at baseline #Hypothyroidism -TSH low, normal free T4. Likely sick euthyroid -Continue synthroid #Colovaginal fistula seen by General surgery they recommend to stabilize nutritional status prior to any major surgery, nutrition consult obtained, no surgical intervention planned outpatient follow-up with Dr. Green # severe malnutrition continue high protein diet and supplements. DVT prophylaxis-heparin Code status discussed with Christiano Krause explained for quality of life contraction deformity bed ridden status nonhealing right hip wound with no plan for further treatment he agreed for DNR DNI, Also offered hospice agreed for hospice eval but later declined. Will change code status to DNR DNI Patient requires inpatient stay for management of severe sepsis requiring IV antibiotics and aggressive IV fluid resuscitation given multiple episodes of hypotension Time Spent With Patient Time: Total time managing care of this patient today ____ minutes. Quality Stroke Does the patient have a stroke diagnosis?: No VTE Prior VTE?: No VTE Risk Level:: Medical - moderate - high VTE Device Contraindication: Treatment Not Indicated VTE Drug Contraindication: N/A - Med Ordered
[2023-06-22 15:34] VITALS: BP 125/64; PULSE 74; RESP 16; TEMP 35.9; O2SAT 95
[2023-06-22 20:00] VITALS: BP 129/77; PULSE 83; RESP 16; TEMP 35.9; O2SAT 93
[2023-06-22] MEDS: Heparin Sodium,Porcine 5,000 UNIT/ML VIAL 5000 UNIT SUBCUT (21:43)
[2023-06-22] MEDS: Gabapentin 300 MG CAPSULE PO (21:57)
[2023-06-22 23:27] VITALS: BP 125/66; PULSE 71; RESP 15; TEMP 36.2; O2SAT 94
[2023-06-23] VITALS (7 sets, daily range): BP systolic 90–125; BP diastolic 49–54; PULSE 63–86; RESP 15–20; TEMP 36.1–36.7; O2SAT 93–97
[2023-06-23] MEDS: Piperacillin Sodium/Tazobactam 3.375 GM in 0.9 % Sodium Chloride 50 ML IV ×4 (02:34→22:43)
[2023-06-23] MEDS: Levothyroxine Sodium 100 MCG TABLET PO (05:45)
[2023-06-23 06:38] LABS: Estimated Glomerular Filt Rate > 60
[2023-06-23] MEDS: Gabapentin 100 MG CAPSULE 200 MG PO (07:35)
[2023-06-23] MEDS: Heparin Sodium,Porcine 5,000 UNIT/ML VIAL 5000 UNIT SUBCUT ×2 (07:35→22:43)
[2023-06-23] MEDS: 0.9 % Sodium Chloride Flush 3 ML SYRINGE IVFLUSH ×3 (07:50→22:44)
[2023-06-23 10:11] LABS: Vancomycin Random 17.6 mcg/mL (15-20)
--- NOTE | 2023-06-23 10:45 | HE.PHANOTE ---
RE: DAVID Patients level came back this morning at 17.6. [facility] suggested that the patients level was going to be 17.2 meaning [facility] is recommending very close to actual. Will continue with patients dose of 750 mg Q12H as its suggested to reach an AUC of 588 and level of 18. Will obtain level tomorrow 06/24 @0900 after two doses to see if this is the case. Patients renal function has been stable at this time. Higher AUC goal due to sepsis
[2023-06-23] MEDS: vancomycin HCL 750 MG in 0.9 % Sodium Chloride 250 ML 265 MG IV ×2 (11:13→22:43)
--- NOTE | 2023-06-23 13:27 | MHC.CLN ---
F/U PT IS SEVERELY MALNOURISHED SEE FULL CLINICAL NUTRITION ASSESSMENT DATED 06/21/23 PT IS A VERY SLOW EATER. TAKES VERY SMALL AMOUNTS OF PO PER LOSS CONTROL CONSULTANT. PO INTAKE 100% X 2MEALS DIET RX: CARDIAC PUREED-RECOMMEND LIBERALIZING DIET TO REGULAR PUREED RECOMMEND ADDING ENSURE BID AND THRIVE ICE CREAM TO PROMOTE WOUND HEALING MONITOR PO INTAKE CLOSELY
[2023-06-23] MEDS: Acetaminophen 325 MG TABLET 650 MG PO (14:07)
--- NOTE | 2023-06-23 14:13 | MHC.CM.PN ---
EMR REVIEWED, PT'S /HCP [facility] COMPLETED SYLVAIN, FILIPE AWAITING HOSPITALIST TO SIGN, PER HOSPITALIST ANTIC PT WILL BE ABLE TO D/C HOME ON ORAL ABX OVER W/E, IMM DELIVERED TO [facility] AT BEDSIDE.
--- NOTE | 2023-06-23 17:13 | P.PNIM_ITS ---
Subjective Subjective Date of Service: 06/23/23 Interval History: Awake nonverbal; appears in no acute distress Review of Systems Unable to obtain Physical Exam Vital Signs: Vital Signs: Last Vital Signs Temp 96.9 F 06/23/23 15:08 Pulse 78 06/23/23 15:08 Resp 20 06/23/23 15:08 BP 102/51 L 06/23/23 15:08 Pulse Ox 94 06/23/23 15:08 O2 Del Method Room Air 06/23/23 15:08 BMI result Body Mass Index 17.0 Const: Other: Awake alert nonverbal Resp: Other: Clear to auscultation bilaterally no rales rhonchi wheezes Cardio: Other: No S4; positive S1-S2; no S3 murmurs rubs or gallops GI: Other: Soft nontender nondistended normoactive bowel sounds Extrem: Other: Contracted/no edema Objective Data Active Medications Acetaminophen (Acetaminophen 325 Mg Tablet) 650 mg PO Q6H PRN PRN Reason: Pain, Mild (Pain Scale 1-3) Last Admin: 06/23/23 14:07 Dose: 650 mg Documented By: LOVELY Docusate Sodium (Docusate Sodium 100 Mg Capsule) 100 mg PO DAILY PRN PRN Reason: Constipation Gabapentin (Gabapentin 300 Mg Capsule) 300 mg PO BEDTIME [facility] Last Admin: 06/22/23 21:57 Dose: 300 mg Documented By: TUMASY Gabapentin (Gabapentin 100 Mg Capsule) 200 mg PO DAILY [facility] Last Admin: 06/23/23 07:35 Dose: 200 mg Documented By: LOVELY Heparin Sodium (Porcine) (Heparin Sodium,Porcine 5,000 Unit/Ml Vial) 5,000 unit SUBCUT Q12H [facility] Last Admin: 06/23/23 07:35 Dose: 5,000 unit Documented By: LOVELY Piperacillin Sod/Tazobactam (Sod 3.375 gm/ Sodium Chloride) 50 mls @ 100 mls/hr IV Q6H [facility] Last Infusion: 06/23/23 14:40 Dose: 0 mls/hr Documented By: LOVELY Vancomycin HCl 750 mg/ Sodium (Chloride) 265 mls @ 265 mls/hr IV Q12H [facility] Last Infusion: 06/23/23 12:15 Dose: 0 mls/hr Documented By: LOVELY Levothyroxine Sodium (Levothyroxine Sodium 100 Mcg Tablet) 100 mcg PO DAILY@060 0 [facility] Last Admin: 06/23/23 05:45 Dose: 100 mcg Documented By: TARYN Ondansetron HCl (Ondansetron Hcl 4 Mg/2 Ml Vial) 4 mg IVPUSH Q8H PRN PRN Reason: Nausea and Vomiting Pharmacy Consult (Consult Rx Vancomycin Dosing) 1 each MISCELLANE DAILY PRN PRN Reason: Consult order Sodium Chloride (0.9 % Sodium Chloride Flush 3 Ml Syringe) 3 ml IVFLUSH QSHIFT [facility] Last Admin: 06/23/23 16:40 Dose: 3 ml Documented By: PHANLYM Labs 06/22/23 09:23 06/23/23 05:59 Labs: Laboratory Results - last 24 hr 06/23/23 06/23/23 05:59 09:24 Estim Creat Clear Calc 74.0 Estimated GFR > 60 Random Vancomycin 17.6 Microbiology Microbiology Results: Microbiology 06/22/23 17:14 Gram Stain - Final Aspirate - Other Routine Culture - Preliminary Culture in progress. Anaerobic Culture - Preliminary Culture in progress. 06/22/23 17:14 Gram Stain - Final Hip Right Routine Culture - Preliminary No growth to date. 06/20/23 08:22 Gram Stain - Final Hip Right Routine Culture - Final Escherichia coli Assessment and Plan (1) Severe sepsis: Status: Acute (2) Soft tissue abscess: Status: Acute (3) Dementia: Status: Acute (4) Hypothyroidism: Status: Acute Plan 58-year-old female with history of colovaginal fistula, hypothyroidism, advanced dementia minimally verbal at baseline, complete heart block s/p PPM, history of MRSA and osteomyelitis of the right hip who is a former smoker admitted for severe sepsis secondary to right hip abscess 1.Severe sepsis (resolved) due to right hip and right iliac abscess. -IR drainage 06/22/2023 -continue Zosyn/vanco (3) -adjust as per forthcoming data 2.Acute metabolic encephalopathy (in backdrop of advanced dementia) -aggressive treatment of comorbidities 3.Hypothyroidism -continue outpatient supplementation 4.Colovaginal fistula -outpatient follow-up heparin DNR DNI Patient requires inpatient stay for management of severe sepsis requiring IV antibiotics and aggressive IV fluid resuscitation given multiple episodes of hypotension Time Spent With Patient Time: Total time managing care of this patient today ____ minutes. Quality Stroke Does the patient have a stroke diagnosis?: No VTE Prior VTE?: No VTE Risk Level:: Medical - moderate - high VTE Device Contraindication: Treatment Not Indicated VTE Drug Contraindication: N/A - Med Ordered
[2023-06-23] MEDS: Gabapentin 300 MG CAPSULE PO (22:43)
[2023-06-24 03:34] VITALS: BP 100/59; PULSE 75; RESP 15; TEMP 36.8; O2SAT 95
[2023-06-24] MEDS: Piperacillin Sodium/Tazobactam 3.375 GM in 0.9 % Sodium Chloride 50 ML IV (03:39)
[2023-06-24] MEDS: Levothyroxine Sodium 100 MCG TABLET PO (05:41)
[2023-06-24 06:28] LABS: Creatinine Clr Calc Pharmacy 52.9; Estimated Glomerular Filt Rate > 60
[2023-06-24 07:11] VITALS: BP 103/57; PULSE 82; RESP 12; TEMP 36.3; O2SAT 95
[2023-06-24] MEDS: Heparin Sodium,Porcine 5,000 UNIT/ML VIAL 5000 UNIT SUBCUT ×2 (09:45→19:39)
[2023-06-24] MEDS: cefTRIAXone sodium 2 GM in 0.9 % Sodium Chloride 50 ML IV (09:46)
[2023-06-24] MEDS: 0.9 % Sodium Chloride Flush 3 ML SYRINGE IVFLUSH ×3 (09:46→23:19)
[2023-06-24] MEDS: Gabapentin 100 MG CAPSULE 200 MG PO (09:46)
[2023-06-24 11:01] VITALS: BP 99/63; PULSE 77; RESP 12; TEMP 36.2; O2SAT 96
--- NOTE | 2023-06-24 11:17 | P.PNGS_ITS ---
Subjective Subjective Date of Service: 06/24/23 Interval history: no new events states she feels fine as per , she seems to be much improved Physical Exam Vital Signs: Vital Signs: Last Vital Signs Temp 97.2 F 06/24/23 11:01 Pulse 77 06/24/23 11:01 Resp 12 06/24/23 11:01 BP 99/63 06/24/23 11:01 Pulse Ox 96 06/24/23 11:01 O2 Del Method Room Air 06/24/23 11:01 BMI result Body Mass Index 17.0 Const: Other: not very communicative General: comfortable and well developed Resp: Effort & Inspection: normal respiratory effort Cardio: Rate: regular rate GI: Palpation (GI): Soft to palpation, not firm, nontender and no guarding Objective Data Active Medications Acetaminophen (Acetaminophen 325 Mg Tablet) 650 mg PO Q6H PRN PRN Reason: Pain, Mild (Pain Scale 1-3) Last Admin: 06/23/23 14:07 Dose: 650 mg Documented By: LOVELY Docusate Sodium (Docusate Sodium 100 Mg Capsule) 100 mg PO DAILY PRN PRN Reason: Constipation Gabapentin (Gabapentin 300 Mg Capsule) 300 mg PO BEDTIME [facility] Last Admin: 06/23/23 22:43 Dose: 300 mg Documented By: JESS Gabapentin (Gabapentin 100 Mg Capsule) 200 mg PO DAILY [facility] Last Admin: 06/24/23 09:46 Dose: 200 mg Documented By: CATHY Heparin Sodium (Porcine) (Heparin Sodium,Porcine 5,000 Unit/Ml Vial) 5,000 unit SUBCUT Q12H [facility] Last Admin: 06/24/23 09:45 Dose: 5,000 unit Documented By: CATHY Ceftriaxone Sodium 2 gm/ (Sodium Chloride) 50 mls @ 100 mls/hr IV Q24H [facility] Last Infusion: 06/24/23 10:29 Dose: 0 mls/hr Documented By: CATHY Levothyroxine Sodium (Levothyroxine Sodium 100 Mcg Tablet) 100 mcg PO DAILY@0600 [facility] Last Admin: 06/24/23 05:41 Dose: 100 mcg Documented By: JESS Ondansetron HCl (Ondansetron Hcl 4 Mg/2 Ml Vial) 4 mg IVPUSH Q8H PRN PRN Reason: Nausea and Vomiting Sodium Chloride (0.9 % Sodium Chloride Flush 3 Ml Syringe) 3 ml IVFLUSH QSHIFT [facility] Last Admin: 06/24/23 09:46 Dose: 3 ml Documented By: CATHY Labs 06/22/23 09:23 06/24/23 06:00 Labs: Laboratory Results - last 24 hr 06/24/23 06/24/23 06:00 09:18 Estim Creat Clear Calc 52.9 Estimated GFR > 60 Random Vancomycin TNP Microbiology Microbiology Results: Microbiology 06/22/23 17:14 Gram Stain - Final Aspirate - Other Routine Culture - Preliminary Staphylococcus aureus Anaerobic Culture - Preliminary Culture in progress. 06/22/23 17:14 Gram Stain - Final Hip Right Routine Culture - Preliminary No growth to date. 06/20/23 08:22 Gram Stain - Final Hip Right Routine Culture - Final Escherichia coli Procedures Date of Service Date of Service: 06/24/23 Progress Note: A&P Assessment and plan (1) Colovaginal fistula: Status: Acute Assessment and Plan: abdomen soft and benign as per , they are not planning surgical intervention Dr. Watkins states that family history question Dr. Green to the patient as well continue current care (2) Dementia: Status: Acute Time Spent With Patient Time: Total time managing care of this patient today ____ minutes. Quality Stroke Does the patient have a stroke diagnosis?: No VTE Prior VTE?: No VTE Risk Level:: Medical - moderate - high VTE Device Contraindication: Treatment Not Indicated VTE Drug Contraindication: N/A - Med Ordered
--- NOTE | 2023-06-24 15:03 | P.PNIM_ITS ---
Subjective Subjective Date of Service: 06/24/23 Interval History: Remains nonverbal. No acute events overnight Review of Systems Unable to obtain Physical Exam Vital Signs: Vital Signs: Last Vital Signs Temp 97.2 F 06/24/23 11:01 Pulse 77 06/24/23 11:01 Resp 12 06/24/23 11:01 BP 99/63 06/24/23 11:01 Pulse Ox 96 06/24/23 11:01 O2 Del Method Room Air 06/24/23 11:01 BMI result Body Mass Index 17.0 Const: Other: Awake alert nonverbal Resp: Other: Clear to auscultation bilaterally no rales rhonchi wheezes Cardio: Other: No S4; positive S1-S2; no S3 murmurs rubs or gallops GI: Other: Soft nontender nondistended normoactive bowel sounds Extrem: Other: Contracted/no edema Objective Data Active Medications Acetaminophen (Acetaminophen 325 Mg Tablet) 650 mg PO Q6H PRN PRN Reason: Pain, Mild (Pain Scale 1-3) Last Admin: 06/23/23 14:07 Dose: 650 mg Documented By: LOVELY Docusate Sodium (Docusate Sodium 100 Mg Capsule) 100 mg PO DAILY PRN PRN Reason: Constipation Gabapentin (Gabapentin 300 Mg Capsule) 300 mg PO BEDTIME [facility] Last Admin: 06/23/23 22:43 Dose: 300 mg Documented By: JESS Gabapentin (Gabapentin 100 Mg Capsule) 200 mg PO DAILY [facility] Last Admin: 06/24/23 09:46 Dose: 200 mg Documented By: CATHY Heparin Sodium (Porcine) (Heparin Sodium,Porcine 5,000 Unit/Ml Vial) 5,000 unit SUBCUT Q12H [facility] Last Admin: 06/24/23 09:45 Dose: 5,000 unit Documented By: CATHY Ceftriaxone Sodium 2 gm/ (Sodium Chloride) 50 mls @ 100 mls/hr IV Q24H [facility] Last Infusion: 06/24/23 10:29 Dose: 0 mls/hr Documented By: CATHY Levothyroxine Sodium (Levothyroxine Sodium 100 Mcg Tablet) 100 mcg PO DAILY@0600 [facility] Last Admin: 06/24/23 05:41 Dose: 100 mcg Documented By: JESS Ondansetron HCl (Ondansetron Hcl 4 Mg/2 Ml Vial) 4 mg IVPUSH Q8H PRN PRN Reason: Nausea and Vomiting Sodium Chloride (0.9 % Sodium Chloride Flush 3 Ml Syringe) 3 ml IVFLUSH QSHIFT [facility] Last Admin: 06/24/23 09:46 Dose: 3 ml Documented By: CATHY Labs 06/22/23 09:23 06/24/23 06:00 Labs: Laboratory Results - last 24 hr 06/24/23 06/24/23 06:00 09:18 Estim Creat Clear Calc 52.9 Estimated GFR > 60 Random Vancomycin TNP Microbiology Microbiology Results: Microbiology 06/22/23 17:14 Gram Stain - Final Aspirate - Other Routine Culture - Preliminary Staphylococcus aureus Anaerobic Culture - Preliminary Culture in progress. 06/22/23 17:14 Gram Stain - Final Hip Right Routine Culture - Preliminary No growth to date. Assessment and Plan (1) Soft tissue abscess: Status: Acute (2) Severe sepsis: Status: Acute Plan 58-year-old female with history of colovaginal fistula, hypothyroidism, advanced dementia minimally verbal at baseline, complete heart block s/p PPM, history of MRSA and osteomyelitis of the right hip who is a former smoker admitted for severe sepsis secondary to right hip abscess 1.Severe sepsis (resolved) due to right hip and right iliac abscess. -IR drainage 06/22/2023 -continue Zosyn/vanco (4) -adjust as per forthcoming data... Culture pending 2.Acute metabolic encephalopathy (in backdrop of advanced dementia) -aggressive treatment of comorbidities 3.Hypothyroidism -continue outpatient supplementation 4.Colovaginal fistula -outpatient follow-up heparin DNR DNI Patient requires inpatient stay for management of severe sepsis requiring IV antibiotics and aggressive IV fluid resuscitation given multiple episodes of hypotension Time Spent With Patient Time: Total time managing care of this patient today ____ minutes. Quality Stroke Does the patient have a stroke diagnosis?: No VTE Prior VTE?: No VTE Risk Level:: Medical - moderate - high VTE Device Contraindication: Treatment Not Indicated VTE Drug Contraindication: N/A - Med Ordered
[2023-06-24 15:11] VITALS: BP 121/56; PULSE 86; RESP 20; TEMP 36.7; O2SAT 95
[2023-06-24 19:08] VITALS: BP 97/53; PULSE 99; RESP 24; TEMP 36.4; O2SAT 93
[2023-06-24] MEDS: Gabapentin 300 MG CAPSULE PO (19:39)
[2023-06-24] MEDS: Acetaminophen 325 MG TABLET 650 MG PO (20:01)
[2023-06-24 23:11] VITALS: BP 125/58; PULSE 88; RESP 18; TEMP 36; O2SAT 95
[2023-06-25 03:23] VITALS: BP 112/55; PULSE 78; RESP 18; TEMP 36; O2SAT 94
[2023-06-25] MEDS: Levothyroxine Sodium 100 MCG TABLET PO (05:20)
[2023-06-25 06:29] LABS: MANUAL DIFF FLAG NO
[2023-06-25 06:46] LABS: Basophils Absolute Auto 0.1 X10*3/uL (0.0-0.2); Basophils Percent Auto 0.7 % (0-2); Eosinophils Absolute Auto 0.2 X10*3/uL (0.0-0.4); Eosinophils Percent Auto 2.8 % (0-4); Hematocrit 36.4 % (37.0-47.0); Hemoglobin 11.3 g/dl (12.0-16.0); Imm Gran Abs Auto 0.04 X10*3/uL (0.00-0.03); Imm Gran Pct Auto 0.5 % (0.0-0.4); Lymphocytes Absolute Auto 1.9 X10*3/uL (1.2-4.9); Lymphocytes Percent Auto 22.2 % (20-40); Mean Corpuscular Hemoglobin 27.2 pg (27.0-33.0); Mean Corpuscular Volume 87.5 fL (80.0-98.0); Mean Platelet Volume 10.1 fL (9.4-12.3); Monocytes Absolute Auto 0.4 X10*3/uL (0.1-1.2); Monocytes Percent Auto 4.8 % (2-11); Platelet Count 478 X10*3/uL (160-400); Red Blood Count 4.16 X10*6/uL (4.20-5.50); Red Cell Distribution Width 15.7 % (11.0-16.0); White Blood Count 8.7 X10*3/uL (4.8-10.8)
[2023-06-25 06:54] LABS: Alanine Aminotransferase 8 U/L (0-31); Albumin Level 4.1 g/dL (3.5-5.0); Alkaline Phosphatase 82 U/L (39-117); Anion Gap 15 (12-20); Aspartate Amino Transferase 11 U/L (5-31); Bilirubin Total 0.2 mg/dL (0.0-1.0); Blood Urea Nitrogen 13 mg/dL (9-16); Calcium 10.1 mg/dL (8.4-10.2); Carbon Dioxide 25 mmol/L (22-29); Chloride 108 mmol/L (96-108); Creatinine Clr Calc Pharmacy 50.2; Estimated Glomerular Filt Rate > 60; Glucose Fasting 89 mg/dL (60-99); Potassium 3.3 mmol/L (3.3-5.1); Sodium 145 mmol/L (135-145)
[2023-06-25 07:19] VITALS: BP 107/59; PULSE 70; RESP 12; TEMP 36; O2SAT 95
[2023-06-25] MEDS: Gabapentin 100 MG CAPSULE 200 MG PO (09:20)
[2023-06-25] MEDS: Heparin Sodium,Porcine 5,000 UNIT/ML VIAL 5000 UNIT SUBCUT (09:20)
[2023-06-25] MEDS: 0.9 % Sodium Chloride Flush 3 ML SYRINGE IVFLUSH (09:21)
[2023-06-25] MEDS: cefTRIAXone sodium 2 GM in 0.9 % Sodium Chloride 50 ML IV (09:21)
[2023-06-25 11:02] VITALS: BP 110/59; PULSE 87; RESP 16; TEMP 36.2; O2SAT 95
--- NOTE | 2023-06-25 11:16 | PM.PNGS ---
Subjective Subjective Date of Service: 06/25/23 Interval history: no events reported denies abdominal pain tolerating diet Physical Exam Vital Signs: Vital Signs: Last Vital Signs Temp 97.1 F 06/25/23 11:02 Pulse 87 06/25/23 11:02 Resp 16 06/25/23 11:02 BP 110/59 L 06/25/23 11:02 Pulse Ox 95 06/25/23 11:02 O2 Del Method Room Air 06/25/23 11:02 BMI result Body Mass Index 17.0 Const: General: comfortable and no acute distress Resp: Effort & Inspection: normal respiratory effort GI: Palpation (GI): Soft to palpation, not firm, nontender and no guarding Objective Data Active Medications Acetaminophen (Acetaminophen 325 Mg Tablet) 650 mg PO Q6H PRN PRN Reason: Pain, Mild (Pain Scale 1-3) Last Admin: 06/24/23 20:01 Dose: 650 mg Documented By: YADI Docusate Sodium (Docusate Sodium 100 Mg Capsule) 100 mg PO DAILY PRN PRN Reason: Constipation Gabapentin (Gabapentin 300 Mg Capsule) 300 mg PO BEDTIME [facility] Last Admin: 06/24/23 19:39 Dose: 300 mg Documented By: YADI Gabapentin (Gabapentin 100 Mg Capsule) 200 mg PO DAILY [facility] Last Admin: 06/25/23 09:20 Dose: 200 mg Documented By: CATHY Heparin Sodium (Porcine) (Heparin Sodium,Porcine 5,000 Unit/Ml Vial) 5,000 unit SUBCUT Q12H [facility] Last Admin: 06/25/23 09:20 Dose: 5,000 unit Documented By: CATHY Ceftriaxone Sodium 2 gm/ (Sodium Chloride) 50 mls @ 100 mls/hr IV Q24H [facility] Last Infusion: 06/25/23 10:04 Dose: 0 mls/hr Documented By: CATHY Levothyroxine Sodium (Levothyroxine Sodium 100 Mcg Tablet) 100 mcg PO DAILY@0600 [facility] Last Admin: 06/25/23 05:20 Dose: 100 mcg Documented By: YADI Ondansetron HCl (Ondansetron Hcl 4 Mg/2 Ml Vial) 4 mg IVPUSH Q8H PRN PRN Reason: Nausea and Vomiting Sodium Chloride (0.9 % Sodium Chloride Flush 3 Ml Syringe) 3 ml IVFLUSH QSHIFT [facility] Last Admin: 06/25/23 09:21 Dose: 3 ml Documented By: CATHY Labs 06/25/23 06:07 06/25/23 06:07 Labs: Laboratory Results - last 24 hr 06/25/23 06/25/23 06:07 06:07 MCV 87.5 MCH 27.2 MCHC 31.0 RDW 15.7 Plt Count 478 H MPV 10.1 Immature Gran % (Auto) 0.5 H Neut % (Auto) 69.0 Lymph % (Auto) 22.2 [place] % (Auto) 4.8 Eos % (Auto) 2.8 Baso % (Auto) 0.7 Lymph # (Auto) 1.9 [place] # (Auto) 0.4 Eos # (Auto) 0.2 Baso # (Auto) 0.1 Abs Immat Gran (auto) 0.04 H Absolute Neuts (auto) 6.0 Absolute Nucleated RBC 0.000 Nucleated RBC % (auto) 0.0 Anion Gap 15 Estim Creat Clear Calc 50.2 Estimated GFR > 60 Fasting Glucose 89 Calcium 10.1 Total Bilirubin 0.2 AST 11 ALT 8 Alkaline Phosphatase 82 Total Protein 7.0 Albumin 4.1 Microbiology Microbiology Results: Microbiology 06/22/23 17:14 Gram Stain - Final Aspirate - Other Routine Culture - Final Methicillin Res Staph Aureus Anaerobic Culture - Preliminary Culture in progress. 06/22/23 17:14 Gram Stain - Final Hip Right Routine Culture - Final No growth after 2 days 06/19/23 16:21 Blood Culture - Final Blood - Venous No growth after 5 days. 06/19/23 15:44 Blood Culture - Final Blood - Venous No growth after 5 days. Procedures Date of Service Date of Service: 06/25/23 Progress Note: A&P Assessment and plan (1) Colovaginal fistula: Status: Acute Assessment and Plan: good GI functions no abdominal pain abdominal exam very benign as per , no further surgical intervention Time Spent With Patient Time: Total time managing care of this patient today ____ minutes. Quality Stroke Does the patient have a stroke diagnosis?: No VTE Prior VTE?: No VTE Risk Level:: Medical - moderate - high VTE Device Contraindication: Treatment Not Indicated VTE Drug Contraindication: N/A - Med Ordered
--- NOTE | 2023-06-25 14:34 | P.DS_ITS ---
DS: Providers Provider Date of Service: 06/25/23 Date of admission: 06/19/23 19:15 Date of discharge: 06/25/23 Primary care physician: Marry Campuzano MD Consults: 06/19/23 19:24 Consult to General Surgery Routine Consulting Provider[place] [facility] Reason for consultation: colovaginal fistula, UTIs, infected wounds right hip/sacrum 06/20/23 07:55 Consult to Orthopedics Routine Consulting Provider: [facility] Reason for consultation: right hip abscess 06/20/23 07:56 Consult to General Surgery Routine Consulting Provider: [facility] Reason for consultation: right iliacus abscess DS: Diagnosis Discharge Diagnosis (1) Soft tissue abscess: Status: Acute (2) MRSA (methicillin resistant staph aureus) culture positive: Status: Acute (3) Colovaginal fistula: Status: Acute DS: Summary Hospital Course Hospital Course: 58-year-old female with history of colovaginal fistula, hypothyroidism, advanced dementia minimally verbal at baseline, complete heart block s/p PPM, history of MRSA and osteomyelitis of the right hip who is a former smoker presented to the ER earlier today via EMS for evaluation of altered mental status.? History was obtained from patient's by ED provider as patient is currently nonverbal and unable to answer questions.? Per the patient's , the patient is typically able to speak with him but this morning after eating breakfast became very somnolent and barely responsive.? The patient went back to bed and has been barely rousable prompting him to call EMS.? Of note, the patient was discharged from the hospital about 1.5 weeks ago for UTI, sepsis, pneumonia with chronic infected pressure wounds.? The patient's denies any fevers, chills, vomiting, diarrhea. On arrival, patient febrile to 102, mildly tachycardic to 95, blood pressures soft but no hypotension.? There is a leukocytosis of 20.? Renal function baseline, electrolyte levels normal.? Lactic acid 1.5.? Ammonia 28, troponin below detectable limits.? TSH 0.19, free T4 1.47.? Urine tox screen negative.? Negative for COVID-19, influenza.? Head CT negative for any acute intracranial abnormality.? CXR negative for any acute cardiopulmonary abnormality. [facility] Patient admitted started on broad-spectrum antibiotics. CT of right hip done which demonstrated a lateral wound and fistulous tract extending to the right hip joint space with large complex joint effusion. This was consistent with septic arthritis. On 06/22/[address]-guided abscess drainage of right psoas/hip abscess. Subsequent cultures grew out MRSA. Blood cultures remain negative to date. At this point time she is medically acceptable to be discharged home on oral course of Bactrim/Ceftin. She will follow-up with PCP as indicated Time Spent with Patient Time attestation: Total time managing care of this patient today ____ minutes. Discharge coordination time: Greater than 30 minutes Quality: Safe Use of Opioids Does Pt have an Active Cancer Diagnosis on the Problem List?: No Quality: Stroke Does the patient have a stroke diagnosis?: No Physical Exam Vital Signs: Vital Signs: Last Vital Signs Temp 97.1 F 06/25/23 11:02 Pulse 87 06/25/23 11:02 Resp 16 06/25/23 11:02 BP 110/59 L 06/25/23 11:02 Pulse Ox 95 06/25/23 11:02 O2 Del Method Room Air 06/25/23 11:02 BMI result Body Mass Index 17.0 Const: Other: Awake alert nonverbal Resp: Other: Clear to auscultation bilaterally no rales rhonchi wheezes Cardio: Other: No S4; positive S1-S2; no S3 murmurs rubs or gallops GI: Other: Soft nontender nondistended normoactive bowel sounds Extrem: Other: Contracted/no edema DS: Data Data Completed and Pending Completed studies during hospitalization [Text1]: Procedures Insertion of Infusion Device into Superior Vena Cava, Percutaneous Approach (08/03/21) Insertion of Pacemaker Lead into Right Atrium, Percutaneous Approach (06/09/21) Insertion of Pacemaker Lead into Right Ventricle, Percutaneous Approach (06/09/21) Insertion of Pacemaker, Dual Chamber into Chest Subcutaneous Tissue and Fascia, Open Approach (06/09/21) Removal of Synthetic Substitute from Right Hip Joint, Femoral Surface, Open Approach (08/03/21) Removal of Synthetic Substitute from Right Hip Joint, Open Approach (07/23/21) Replacement of Right Hip Joint with Synthetic Substitute, Uncemented, Open Approach (07/23/21) Replacement of Right Hip Joint, Femoral Surface with Synthetic Substitute, Uncemented, Open Approach (06/09/21) Revision of Synthetic Substitute in Right Hip Joint, External Approach (07/07/21) Revision of Synthetic Substitute in Right Hip Joint, Femoral Surface, Open Approach (07/20/21) Transfusion of Nonautologous Red Blood Cells into Peripheral Vein, Percutaneous Approach (08/03/21) Labs on day of discharge: Laboratory Results - last 24 hr 06/25/23 06/25/23 06:07 06:07 WBC 8.7 RBC 4.16 L Hgb 11.3 L Hct 36.4 L MCV 87.5 MCH 27.2 MCHC 31.0 RDW 15.7 Plt Count 478 H MPV 10.1 Immature Gran % (Auto) 0.5 H Neut % (Auto) 69.0 Lymph % (Auto) 22.2 [place] % (Auto) 4.8 Eos % (Auto) 2.8 Baso % (Auto) 0.7 Lymph # (Auto) 1.9 [place] # (Auto) 0.4 Eos # (Auto) 0.2 Baso # (Auto) 0.1 Abs Immat Gran (auto) 0.04 H Absolute Neuts (auto) 6.0 Absolute Nucleated RBC 0.000 Nucleated RBC % (auto) 0.0 Sodium 145 Potassium 3.3 Chloride 108 Carbon Dioxide 25 Anion Gap 15 BUN 13 Creatinine 0.81 Estim Creat Clear Calc 50.2 Estimated GFR > 60 Fasting Glucose 89 Calcium 10.1 Total Bilirubin 0.2 AST 11 ALT 8 Alkaline Phosphatase 82 Total Protein 7.0 Albumin 4.1 Preliminary micro results at discharge 06/22/23 17:14 Anaerobic Culture - Preliminary Aspirate - Other Culture in progress. Discharge Plan Discharge Anticipated Discharge Date/Time: 06/25/23 14:19 Patient Disposition: Home Health Service Discharge Diagnosis: Right psoas abscess Referrals: [facility] [Outside] - 1 Week Marry Campuzano MD [Primary Care Provider] - 1 Week Discharge Medications: New sulfamethoxazole-trimethoprim [Bactrim DS] 800-160 mg tablet 1 tab PO BID Qty: 14 0RF cefuroxime axetil 500 mg tablet 500 mg PO BID 7 Days Qty: 14 0RF Continued (DME) roho seat cushion See Rx Instructions .Route .MEDSUPPLY Qty: 1 0RF Rx Instructions: As directed (DME) powered recliner chair See Rx Instructions .Route .MEDSUPPLY Qty: 1 0RF Rx Instructions: As directed ferrous sulfate 325 mg (65 mg iron) tablet,delayed release (DR/EC) 325 mg PO DAILY Qty: 90 0RF Zyrtec 10 mg capsule 10 mg PO DAILY PRN (Reason: allergy symptoms) Qty: 90 1RF (DME) Air mattress overlay Misc See Rx Instructions .Route Qty: 1 0RF Rx Instructions: As directed (DME) Adult disposable briefs Large See Rx Instructions .Route .MEDSUPPLY Qty: 200 6RF Rx Instructions: Pull-ups , adult disposable briefs. (DME) body wipes See Rx Instructions .Route .MEDSUPPLY Qty: 1200 3RF Rx Instructions: As directed (DME) disposable bed pads See Rx Instructions .Route .MEDSUPPLY Qty: 100 5RF Rx Instructions: As directed (DME) disposable gloves [Vinyl Gloves] Misc See Rx Instructions .Route Qty: 200 5RF Rx Instructions: As directed levothyroxine 100 mcg tablet 100 mcg PO DAILY Qty: 90 3RF (DME) gauze bandage 4 X 4 bandage See Rx Instructions .Route Qty: 1200 0RF Rx Instructions: As directed (DME) adhesive tape [[employer]] 1 X 10 -yard tape See Rx Instructions .Route Qty: 2 0RF Rx Instructions: As directed (DME) gauze bandage 4 X 4 bandage See Rx Instructions .Route Qty: 1200 0RF Rx Instructions: As directed (DME) gauze bandage 4 X 4 bandage See Rx Instructions .Route Qty: 1200 0RF Rx Instructions: As directed (DME) adhesive tape 1 X 10 -yard tape See Rx Instructions .Route Qty: 2 0RF Rx Instructions: As directed gabapentin 300 mg capsule 300 mg PO BEDTIME multivitamin Tablet 1 tab PO Q OTHER DAY Rx Instructions: On days not taking B12 and D3 cyanocobalamin (vitamin B-12) 1,000 mcg tablet 1,000 mcg PO Q OTHER DAY Rx Instructions: On days not taking multivitamin gabapentin 100 mg capsule 200 mg PO QAM polyethylene glycol 3350 [Miralax] 17 gram powder in packet 17 g PO DAILY PRN (Reason: Constipation) docusate sodium 100 mg capsule 100 mg PO BID PRN (Reason: Constipation) cholecalciferol (vitamin D3) 25 mcg (1,000 unit) capsule 25 mcg PO Q OTHER DAY Rx Instructions: On days not taking multivitamin lidocaine 4 % Adhesive Patch,Medicated 1 patch TOPICAL DAILY PRN (Reason: pain) acetaminophen [Tylenol Extra Strength] 500 mg tablet 1,000 mg PO Q4H PRN (Reason: Pain) (DME) DuoDERM CGF Dressing 8 X 12 bandage See Rx Instructions .Route Qty: 5 0RF Rx Instructions: As directed folic acid 1 mg tablet 1 mg PO DAILY Qty: 90 3RF escitalopram oxalate 10 mg tablet 10 mg PO DAILY Qty: 90 3RF baclofen 10 mg tablet 10 mg PO DAILY Qty: 90 3RF (DME) nebulizers Misc See Rx Instructions .Route Qty: 1 0RF Rx Instructions: 1 bid No Action (DME) adhesive tape [[employer]] 1 X 10 -yard tape See Rx Instructions .Route Qty: 2 0RF Rx Instructions: As directed Discharge Orders: Discharge Order (Routine); Ordered 06/25/23 Ordered By: Cristobal Shaw Diet: Advance to usual diet Activity on Discharge: As tolerated Stand Alone Forms: Patient Portal Discharge page Care Plan Goals: Complete course of Ceftin and Bactrim DS as ordered Health Concerns: Resume all pre-hospital medications Plan of Treatment: As per hospital Assessment: See discharge summary
--- NOTE | 2023-06-25 14:43 | MHC.CM.PN ---
Patient has been medically cleared for dc to home today, with services. A referral was made to [facility], who has been made aware of today's dc. Last IMM addressed on 06/23/2023. Patient will dc to home today at 4:30 PM, via [facility]; /Guardian is aware of and pleased with the dc plan.
[2023-06-25 15:23] VITALS: BP 93/59; PULSE 91; RESP 18; TEMP 36.3; O2SAT 94
[2023-06-25 15:24] LABS: Vitamin D 25-OH, D2 <4 ng/mL; Vitamin D 25-OH, D3 27 ng/mL; Vitamin D 25-OH, Total 27 ng/mL (30-100)
[2023-06-26 05:18] LABS: Vitamin B1 7 nmol/L (8-30)
== END 2023-06-25 17:13 | disposition home health service (06) | DRG 871 ==
LOC: HO.ED 18:09 → HO.EDOVER 19:39 → HO.ICU 23:35 → HO.IMC 06-20 15:46
PROVIDERS: Hospitalist; Internal Medicine; Internal Medicine Pulmonary Disease; Radiology Diagnostic Radiology; Registered Nurse Community Health; Surgery; Admitting Provider Physician Assistant; Emergency Provider Emergency Medicine; PCP Internal Medicine; Visit Provider Hospitalist
DX: A41.9 Sepsis, unspecified organism (principal); E43 Unspecified severe protein-calorie malnutrition; L89.153 Pressure ulcer of sacral region, stage 3; G93.41 Metabolic encephalopathy; N39.0 Urinary tract infection, site not specified; Z68.1 Body mass index [BMI] 19.9 or less, adult; N82.3 Fistula of vagina to large intestine; I44.2 Atrioventricular block, complete; M86.68 Other chronic osteomyelitis, other site; M60.051 Infective myositis, right thigh; M00.051 Staphylococcal arthritis, right hip; Z66 Do not resuscitate; R65.20 Severe sepsis without septic shock; E03.9 Hypothyroidism, unspecified; G30.9 Alzheimer's disease, unspecified; F02.80 Dementia in other diseases classified elsewhere, unspecified severity, without behavioral disturbance, psychotic disturbance, mood disturbance, and anxiety; F43.10 Post-traumatic stress disorder, unspecified; Z20.822 Contact with and (suspected) exposure to COVID-19; Z86.14 Personal history of Methicillin resistant Staphylococcus aureus infection; Z87.440 Personal history of urinary (tract) infections; Z87.891 Personal history of nicotine dependence; Z87.892 Personal history of anaphylaxis; Z79.890 Hormone replacement therapy; Z79.899 Other long term (current) drug therapy; B95.62 Methicillin resistant Staphylococcus aureus infection as the cause of diseases classified elsewhere
CPT/HCPCS: 36415; 70450; 71045; 73701; 74177; 75989; 80048; 80053; 80076; 80202; 80307; 81001; 82040; 82140; 82306; 82565; 82607; 82746; 82803; 83605; 83735; 84100; 84132; 84134; 84425; 84439; 84443; 84484; 85025; 85027; 85610; 86140; 87040; 87070; 87073; 87077; 87086; 87186; 87205; 87502; 87635; 93005; 99285; J0696; J1643; J2185; J2543; J3370; J3475; P9047; Q9967

== ENCOUNTER → 2023-06-19 14:41 | Outpatient (BNV) | payer OTHER, SELFPAY | PROVIDERS: Admitting Provider Physician Assistant; Emergency Provider Emergency Medicine; Visit Provider Internal Medicine Cardiovascular Disease | DX: R94.31 Abnormal electrocardiogram [ECG] [EKG] (principal) | CPT/HCPCS: 93010 ==

== ENCOUNTER 2023-06-19 19:15 | Outpatient (BNV) | payer OTHER, SELFPAY | END 2023-06-22 16:00 | PROVIDERS: Admitting Provider Physician Assistant; Emergency Provider Emergency Medicine; PCP Internal Medicine; Visit Provider Radiology Vascular & Interventional Radiology | DX: K68.12 Psoas muscle abscess (principal); A41.9 Sepsis, unspecified organism; R65.20 Severe sepsis without septic shock; G93.40 Encephalopathy, unspecified | CPT/HCPCS: 75989 ==

== ENCOUNTER → 2023-06-19 19:15 | Outpatient (BNV) | payer OTHER, SELFPAY | PROVIDERS: Admitting Provider Physician Assistant; Emergency Provider Emergency Medicine; Visit Provider Surgery | DX: N82.4 Other female intestinal-genital tract fistulae (principal) | CPT/HCPCS: 99222; 99231; 99232 ==

== ENCOUNTER → 2023-06-19 19:15 | Outpatient (BNV) | payer OTHER, SELFPAY | PROVIDERS: Admitting Provider Physician Assistant; Emergency Provider Emergency Medicine; Visit Provider Internal Medicine | DX: L02.91 Cutaneous abscess, unspecified (principal); Z22.322 Carrier or suspected carrier of Methicillin resistant Staphylococcus aureus; N82.4 Other female intestinal-genital tract fistulae | CPT/HCPCS: 99223; 99233; 99239; 99499 ==

== ENCOUNTER → 2023-06-19 19:15 | Outpatient (BNV) | payer OTHER, SELFPAY | PROVIDERS: Admitting Provider Physician Assistant; Emergency Provider Emergency Medicine; Visit Provider Internal Medicine Pulmonary Disease | DX: A41.9 Sepsis, unspecified organism (principal); R65.20 Severe sepsis without septic shock; N39.0 Urinary tract infection, site not specified; L89.95 Pressure ulcer of unspecified site, unstageable; L08.9 Local infection of the skin and subcutaneous tissue, unspecified; N82.4 Other female intestinal-genital tract fistulae; L02.91 Cutaneous abscess, unspecified; F03.90 Unspecified dementia, unspecified severity, without behavioral disturbance, psychotic disturbance, mood disturbance, and anxiety; Z98.890 Other specified postprocedural states; M86.9 Osteomyelitis, unspecified; L89.500 Pressure ulcer of unspecified ankle, unstageable; L89.153 Pressure ulcer of sacral region, stage 3 | CPT/HCPCS: 99232 ==

== ENCOUNTER → 2023-06-19 19:15 | Outpatient (BNV) | payer OTHER, SELFPAY | PROVIDERS: Admitting Provider Physician Assistant; Emergency Provider Emergency Medicine; Visit Provider Registered Nurse Community Health | DX: A41.9 Sepsis, unspecified organism (principal); R65.20 Severe sepsis without septic shock; L89.95 Pressure ulcer of unspecified site, unstageable; L08.9 Local infection of the skin and subcutaneous tissue, unspecified; N39.0 Urinary tract infection, site not specified; G93.40 Encephalopathy, unspecified; N82.4 Other female intestinal-genital tract fistulae | CPT/HCPCS: 36556; 99291 ==

== ENCOUNTER 2023-06-29 09:50 | Outpatient (AMB) | payer OTHER, SELFPAY ==
--- NOTE | 2023-06-29 10:04 | MHC.PC.OV ---
Vital Signs 06/29/23 10:05 BMI Reason not done Patient refused/unable BP 120/62 Blood Pressure Location Lt brachial Position Sitting Pulse 90 Pulse Source Pulse Oximeter Pulse Oximetry (%) 94 Oxygen Delivery Method Room Air Intake Visit Reasons: OBGYN Referral-Vaginal Issues Intake Note: Pt is here today for Hospital follow up visit. Pt's states that pt needs refill on her antibiotics. Allergies [employer] nut Allergy (Verified 06/29/23 10:14) Unknown lactose Allergy (Verified 06/29/23 10:14) Diarrhea Medication List - Last Reconciled 06/29/23 by Marry Campuzano MD acetaminophen (Tylenol Extra Strength) 1,000 mg PO Q4H PRN adhesive tape As directed adhesive tape ([employer]) As directed adhesive tape ([employer]) As directed [Adult disposable briefs Pull-ups , adult disposable briefs.] Air mattress overlay As directed baclofen 10 mg PO DAILY [body wipes As directed] cefuroxime axetil 500 mg PO BID 7 days cetirizine (Zyrtec) 10 mg PO DAILY PRN cholecalciferol (vitamin D3) 25 mcg PO Q OTHER DAY cyanocobalamin (vitamin B-12) 1,000 mcg PO Q OTHER DAY [disposable bed pads As directed] disposable gloves (Vinyl Gloves) As directed docusate sodium 100 mg PO BID PRN escitalopram oxalate 10 mg PO DAILY ferrous sulfate 325 mg PO DAILY folic acid 1 mg PO DAILY gabapentin 200 mg PO QAM gabapentin 300 mg PO BEDTIME gauze bandage As directed gauze bandage As directed gauze bandage As directed hydrocolloid dressing (DuoDERM CGF Dressing) As directed levothyroxine 100 mcg PO DAILY lidocaine 4% 1 patch topical DAILY PRN multivitamin 1 tab PO Q OTHER DAY nebulizers 1 bid polyethylene glycol 3350 (Miralax) 17 grams PO DAILY PRN [powered recliner chair As directed] [roho seat cushion As directed] sulfamethoxazole-trimethoprim 800-160 mg (Bactrim DS) 1 tab PO BID Tobacco use date assessed: 06/29/23 Dental Screening Dental Screen Date: 06/29/23 Did you have a dental visit in the last 12 months?: No Did you have a dental problem in the last 6 months where you did not have access to dental care?: No Was dental information given to patient?: Patient declined HPI OBGYN Referral-Vaginal Issues HPI Details Patient presents for the follow-up of hospitalization at [facility] for sepsis. Patient was diagnosed with UTI and had aspiration of chronic right hip abscess consistent with MRSA. Patient was discharged home on Bactrim and cefuroxime for 1 week. She has PICC line in placed and used to get IV antibiotic for chronic right hip abscess. Patient mental status is back to her baseline which is nonverbal and wheelchair-bound. Patient's caregiver reports patient having better appetite. [facility] Medical History Abnormal EKG Abnormal urine odor Balance disorder Closed dislocation of right hip Closed hip fracture Dementia Dementia Dementia Dislocation, hip closed Displaced fracture of right femoral neck Elevated LFTs Fever Hip dislocation, right History of pacemaker Hypothyroidism Lactose intolerance Left leg weakness Leukocytosis (leucocytosis) Memory loss Osteomyelitis of right hip Pacemaker Pre-op evaluation Preoperative cardiovascular examination PTSD (post-traumatic stress disorder) Rash Shortness of breath Sinus pause Symptomatic bradycardia Syncope Tobacco dependence Urinary incontinence Visit for wound check Surgical History History of hemiarthroplasty of right hip Hx of total hip arthroplasty No pertinent past surgical history Status post hip hemiarthroplasty Family History Mother Unknown family medical history Father Unknown family medical history Social History Household Members: Spouse Housing: Apartment Housing Other:: [facility] Do you presently have visiting nurse or other home services: Yes Unable to assess alcohol history related to: Unable to respond Alcohol intake: never Patient Tobacco Use Status: Former Tobacco user Tobacco use type: Cigarette Cigarettes Per Day: 5.0 Years Smoked: since teen years per pt e-Cigarette/Vaping Use: Never Used Second Hand Smoke Exposure: No Substance Use Type: Marijuana Advance Directives Date on File: 06/16/21 service: Yes Current occupational status: disabled Current occupation: rt handed Cognitive needs: Yes Hearing needs: No Vision needs: Yes Questionnaire PHQ-9 Over the last 2 weeks, how often have you been bothered by any of the following problems? 1. Little interest or pleasure in doing things: not at all 2. Feeling down, depressed, or hopeless: not at all 3. Trouble falling or staying asleep, or sleeping too much: not at all 4. Feeling tired or having little energy: not at all 5. Poor appetite or overeating: more than half the days 6. Feeling bad about yourself - or that you are a failure or have let yourself or your family down: not at all 7. Trouble concentrating on things, such as reading the newspaper or watching television: not at all 8. Moving or speaking so slowly that other people could have noticed. Or the opposite - being so fidgety or restless that you have been moving around a lot more than usual: not at all 9. Thoughts that you would be better off or of hurting yourself in some way: not at all Total score: 2 Depression Screening Interpretation: Negative Source: Developed by Drs. Richie Parker, Reanna Thornton, Aleksander Olivera and colleagues, with an educational alcides from [employer]. Thrive Questionnaire Date Thrive assessed: 06/20/23 AUDIT C Alcohol Use Questionnaire (AUDIT-C) 1. How often do you have a drink containing alcohol?: Never 3. How often do you have six or more drinks on one occasion?: Never Total Score: 0 BENSON-7 AMB Questionnaire BENSON-7 Date BENSON - 7 assessed: 06/29/23 Feeling nervous, anxious, or on edge: 0 = Not at all Not being able to stop or control worryin = Not at all Worrying too much about different things: 0 = Not at all Trouble relaxin = Not at all Being so restless that it is hard to sit still: 0 = Not at all Becoming easily annoyed or irritable: 0 = Not at all Feeling afraid as if something awful might happen: 0 = Not at all Total BENSON-7 score (0-4 normal; 5-9 mild; 10-14 moderate; 15-21 severe): 0 Source: Developed by Drs. Richie Parker, Reanna Thornton, Aleksander Olivera and colleagues, with an educational alcides from [employer]. Review of Systems Const All systems reviewed & are unremarkable except as noted in HPI and below Physical exam (Primary Care) Vital Signs: Last Vital Signs Pulse 90 06/29/23 10:05 BP 120/62 06/29/23 10:05 Pulse Ox 94 06/29/23 10:05 Oxygen Delivery Method Room Air 06/29/23 10:05 Tobacco/Smoking Status: Tobacco use Status Tobacco use date assessed 06/29/23 06/29/23 10:21 Patient Tobacco Use Status Former Tobacco user 06/29/23 10:04 Tobacco use type Cigarette 06/29/23 10:04 e-Cigarette/Vaping Use Never Used 06/29/23 10:04 PHQ-9: PHQ-9 Score PHQ-9: Total score 2 06/29/23 10:21 Depression Screening Interpretation: Negative Thrive Assessment: Date of Thrive Assessment Date Thrive assessed 06/20/23 06/29/23 10:04 Const General: no acute distress HENMT Head: Yes normal to inspection Neck Neck: Yes supple Resp Effort & Inspection: normal respiratory effort Auscultation: clear to auscultation bilaterally Cardio Rhythm: regular rhythm Heart sounds: S1 normal heart sound present and S2 normal heart sound present GI Inspection: Yes normal to inspection Palpation (GI): Soft to palpation Percussion: Yes normal to percussion Auscultation: normal bowel sounds Assessment and Plan Assessment & Plan (1) MRSA (methicillin resistant staph aureus) culture positive: Code(s): Z22.322 - Carrier or suspected carrier of Methicillin resistant Staphylococcus aureus (2) Osteomyelitis of right hip: Comment: R hip ORIF 06/02, MRSA infection, s/p hardware removal July 2021, f/u infectious disease Dr. Babcock chronic infection,MRSA concern Code(s): M86.9 - Osteomyelitis, unspecified Plan: Patient was given 10 additional days of Bactrim and cefuroxime and will be referred to Infectious Disease for guidance regarding the treatment (3) Decubitus ulcer, unstageable with infection: Code(s): L89.95 - Pressure ulcer of unspecified site, unstageable; L08.9 - Local infection of the skin and subcutaneous tissue, unspecified Plan: VNA and wound care 3 times a week (4) Dementia: Comment: Advanced, impaired verbal, and not mobile Code(s): F03.90 - Unspecified dementia, unspecified severity, without behavioral disturbance, psychotic disturbance, mood disturbance, and anxiety Orders: Referrals Infectious Disease Referral M86.9 - Osteomyelitis, unspecified, Z22.322 - Carrier or suspected carrier of Methicillin resistant Staphylococcus aureus Medications: New gabapentin 200 mg (2 x 100 mg) PO QAM 180 caps 2RF gabapentin 300 mg PO BEDTIME 90 caps 3RF gauze bandage (Band-Aid Gauze Pads) As directed 2,400 ea 2RF gauze bandage (Band-Aid Gauze Pads) As directed 2,400 ea 2RF Changed From gauze bandage As directed 1,200 ea 0RF T81.31XA - Disruption of external operation (surgical) wound, not elsewhere classified, initial encounter To gauze bandage as directed 1,200 ea 3RF T81.31XA - Disruption of external operation (surgical) wound, not elsewhere classified, initial encounter Refilled cefuroxime axetil 500 mg PO BID 7 days 20 tabs 0RF sulfamethoxazole-trimethoprim 800-160 mg (Bactrim DS) 1 tab PO BID 20 tabs 0RF gauze bandage as directed 1,200 ea 3RF T81.31XA - Disruption of external operation (surgical) wound, not elsewhere classified, initial encounter Discontinued polyethylene glycol 3350 17 grams PO DAILY 30 ea 4RF cholecalciferol (vitamin D3) 25 mcg PO DAILY 90 caps 3RF docusate sodium 100 mg PO BID 90 days 180 caps 2RF gabapentin 1 cap in am, 1 cap at noon, 2 caps at HS orally; 120 caps 4RF Coding Level of Care Code Est Pt Level 4 (86098) Diagnoses MRSA (methicillin resistant staph aureus) culture positive Z22.322 Osteomyelitis of right hip M86.9 Decubitus ulcer, unstageable with infection L89.95; L08.9 Dementia F03.90
[2023-06-29 10:05] VITALS: BP 120/62; PULSE 90; O2SAT 94
== END 2023-06-29 11:05 | disposition home or self-care (01) ==
PROVIDERS: PCP Internal Medicine; Visit Provider Internal Medicine
DX: M86.9 Osteomyelitis, unspecified (principal); L89.95 Pressure ulcer of unspecified site, unstageable; F03.90 Unspecified dementia, unspecified severity, without behavioral disturbance, psychotic disturbance, mood disturbance, and anxiety; L08.9 Local infection of the skin and subcutaneous tissue, unspecified; Z22.322 Carrier or suspected carrier of Methicillin resistant Staphylococcus aureus
CPT/HCPCS: 99214

== ENCOUNTER 2023-07-03 13:01 | Outpatient (AMB) | payer OTHER, SELFPAY ==
--- NOTE | 2023-07-03 13:02 | MHC.OFFVIS ---
Intake Vital Signs 07/03/23 13:11 BP 100/70 Blood Pressure Location Lt brachial Position Sitting Pulse 96 Pulse Source Pulse Oximeter Pulse Oximetry (%) 97 Intake Visit Reasons: Ref,PCP Cichon,Osteomyelitis Allergies [employer] nut Allergy (Verified 07/03/23 13:12) Unknown lactose Allergy (Verified 07/03/23 13:12) Diarrhea HPI Ref,PCP Cichon,Osteomyelitis HPI Details She has MRSA OM. She feels about the same and doesnt want any surgery for any hip wounds She will accept oral agents. She is here with ,Christiano today. [facility] Medical History Abnormal EKG Abnormal urine odor Balance disorder Closed dislocation of right hip Closed hip fracture Colovaginal fistula Decubitus ulcer, unstageable with infection Dementia Dementia Dementia Dislocation, hip closed Displaced fracture of right femoral neck Elevated LFTs Fever Hip dislocation, right History of pacemaker Hypothyroidism Lactose intolerance Left leg weakness Leukocytosis (leucocytosis) Memory loss Osteomyelitis of right hip Pacemaker Pre-op evaluation Preoperative cardiovascular examination Pressure injury of ankle, unstageable Pressure injury of sacral region, stage 3 Protein malnutrition PTSD (post-traumatic stress disorder) Rash Shortness of breath Sinus pause Symptomatic bradycardia Syncope Tobacco dependence Unspecified open wound, right hip, initial encounter Urinary incontinence Visit for wound check Surgical History History of hemiarthroplasty of right hip Hx of total hip arthroplasty No pertinent past surgical history S/P [place] procedure Status post hip hemiarthroplasty Family History Mother Unknown family medical history Father Unknown family medical history Social History Household Members: Spouse Housing: Apartment Housing Other:: From [facility] Do you presently have visiting nurse or other home services: Yes Unable to assess alcohol history related to: Unable to respond Alcohol intake: never Patient Tobacco Use Status: Former Tobacco user Tobacco use type: Cigarette Cigarettes Per Day: 5.0 Years Smoked: since teen years per pt e-Cigarette/Vaping Use: Never Used Second Hand Smoke Exposure: No Substance Use Type: Marijuana Advance Directives Date on File: 06/16/21 service: Yes Current occupational status: disabled Current occupation: rt handed Cognitive needs: Yes Hearing needs: No Vision needs: Yes Review of Systems Const All systems reviewed & are unremarkable except as noted in HPI and below Physical Exam Vital Signs: Last Vital Signs Pulse 96 07/03/23 13:11 BP 100/70 07/03/23 13:11 Pulse Ox 97 07/03/23 13:11 Const Other: frail and contractures General: cooperative Orientation/consciousness: patient oriented x3 HEENT Head: Yes normal to inspection Mouth: Normal oral and palatal mucosa present Eyes General: appearance normal, both eyes and all related structures Pupils: Equal, round and reactive pupils present Resp Effort & Inspection: normal respiratory effort Cardio Rate: regular rate Rhythm: regular rhythm GI Palpation (GI): Soft to palpation and nontender General: Yes no CVA tenderness Back/Spine/Pelvis Back: no CVA tenderness Skin General skin exam: no rashes or lesions noted Neuro General: patient oriented x3 Cranial nerves: Yes CN's II-XII intact bilaterally and Yes Equal, round and reactive pupils present Extrem General: Yes normal to inspection Psych Appearance: grossly normal Assessment & Plan Assessment & Plan (1) MRSA (methicillin resistant staph aureus) culture positive: Comment: She is prone to recurrence infection MRSA. Code(s): Z22.322 - Carrier or suspected carrier of Methicillin resistant Staphylococcus aureus Plan: Po Doxycycline 100 mg bid one month and five refills. See us in six months. (2) Soft tissue abscess: Code(s): L02.91 - Cutaneous abscess, unspecified Medications: New doxycycline hyclate 100 mg PO BID 60 tabs 5RF 30 days Discontinued polyethylene glycol 3350 17 grams PO DAILY 30 ea 4RF cholecalciferol (vitamin D3) 25 mcg PO DAILY 90 caps 3RF docusate sodium 100 mg PO BID 90 days 180 caps 2RF gabapentin 1 cap in am, 1 cap at noon, 2 caps at HS orally; 120 caps 4RF Coding Level of Care Code Est Pt Level 3 (46524) Diagnoses MRSA (methicillin resistant staph aureus) culture positive Z22.322 Soft tissue abscess L02.91
[2023-07-03 13:11] VITALS: BP 100/70; PULSE 96; O2SAT 97
== END 2023-07-03 14:38 | disposition home or self-care (01) ==
LOC: HO.HID 13:01
PROVIDERS: PCP Internal Medicine; Visit Provider Internal Medicine
DX: Z22.322 Carrier or suspected carrier of Methicillin resistant Staphylococcus aureus (principal); L02.91 Cutaneous abscess, unspecified
CPT/HCPCS: 99213

== ENCOUNTER → 2023-07-03 13:01 | Outpatient (BNVA) | payer OTHER, SELFPAY | PROVIDERS: PCP Internal Medicine; Visit Provider Internal Medicine | DX: M86.151 Other acute osteomyelitis, right femur (principal); L02.91 Cutaneous abscess, unspecified; L89.153 Pressure ulcer of sacral region, stage 3; Z96.641 Presence of right artificial hip joint; Z22.322 Carrier or suspected carrier of Methicillin resistant Staphylococcus aureus | CPT/HCPCS: 99212 ==

== ENCOUNTER 2023-09-01 14:26 | Inpatient (IN) | payer OTHER, SELFPAY ==
[2023-09-01] VITALS (7 sets, daily range): BP systolic 97–113; BP diastolic 43–68; PULSE 94–150; RESP 18–32; TEMP 38.3–39.2; O2SAT 93–96; BMI 19.2
--- NOTE | ~2023-09-01 | CT_ITS ---
EXAMINATION: CT CHEST, ABDOMEN AND PELVIS WITH CONTRAST. CLINICAL INFORMATION: Fever. Evaluate pneumonia and right hip abscess. COMPARISON: CT abdomen/pelvis 06/19/2023. TECHNIQUE: Multidetector volumetric imaging was performed from the thoracic inlet through the pubic symphysis following administration of 85 mL Omnipaque 350 intravenous contrast. Sagittal and coronal reformatted images were obtained on the technologist's workstation. This CT examination was performed using dose optimization techniques as appropriate, variously including the following: *Automated exposure control *Adjustment of mA and/or kV according to patient size (this includes techniques or standardized protocols for targeted exams where dose is matched to indication/reason for exam; i.e. extremities or head) *Use of iterative reconstruction technique DLP: 226 and 668 mGy-cm FINDINGS: CHEST: Limited examination secondary to motion. Lung: Bibasilar subsegmental atelectasis versus early consolidation. Biapical subpleural thickening/scarring, for instance measuring 1 x 1 cm in the right apex (7:27). Intraluminal debris with internal air bubbles in the proximal right trachea (7:97), otherwise central airways are patent. Mild diffuse bronchial wall thickening. No suspicious pulmonary nodule or mass, although evaluation is limited due to motion. Nonspecific filling defect within a segmental branch of the right lower lobe (7:212). Mediastinum: Normal heart size. No pericardial effusion. Partially calcified mediastinal and hilar lymphadenopathy, for example subcarinal lymph node measuring 1.5 cm short axis (7:174) and right hilar lymph node measuring 1.1 cm in short axis (7:176). Pericardium/Pleura: No pleural effusion or pneumothorax. Chest Wall/Axilla: No lymphadenopathy by size criteria. ABDOMEN/PELVIS: Limited examination secondary to motion and artifacts generated by the patient's arms that overlie the upper abdomen. Liver, Gallbladder, Biliary Tree: Liver is normal in size, shape and attenuation. A few too small to characterize hypodensities, for instance hepatic dome (13:10) and inferior medial left hepatic lobe (13:32) are unchanged. Normal CT appearance of the gallbladder. No biliary ductal dilatation. Pancreas: Unremarkable. Spleen: Unremarkable. Adrenal Glands: Unremarkable. Kidneys and Ureters: The kidneys are normal in size, shape, and attenuation. Bosniak 1 cyst measuring 1.2 cm in the lower right kidney, for which no imaging follow-up is recommended. A few additional bilateral too small to characterize cortical hypodensities are also favored to represent simple cysts, for which no imaging follow-up is recommended. Multiple sub-3 mm nonobstructive bilateral renal calculi. Symmetric nephrograms. No hydronephrosis. No perinephric fat stranding. Bladder: Decompressed limiting evaluation. There is a 0.5 cm calculus in the left posterior bladder. A Navarro catheter is noted. Gastrointestinal Tract: The stomach and the small bowel are nondilated. No indirect findings to suspect acute appendicitis. Moderate amount of stool burden in the colon and large fecal ball in the rectum. No significant pericolonic fat stranding or free fluid. No evidence of bowel obstruction. Abdominal Wall: No significant hernia is appreciated. Lymphovascular Structures: No lymphadenopathy by size criteria. Normal caliber abdominal aorta. Scattered atherosclerotic disease. Pelvic Viscera: IUD in similar positioning to prior. A few hyperattenuating intramural lesions, for instance measuring 1 cm on image 61 series 13 and 0.7 cm on image 60, series 13 are unchanged favoring to represent fibroid. No free fluid. Osseous Structures: Stable severe compression deformity at L2 with unchanged 0.4 cm of retropulsion. Stable additional less pronounced compression deformities at from T9 through L1 compared to 06/20/2023. Age indeterminate T8 moderate compression deformity. Redemonstration of a lateral wound and fistulous tract extending to the right hip joint space with redemonstration of a large, complex joint effusion with significant surrounding soft tissue thickening and stranding, not significantly changed. Pronounced bony remodeling/erosion of the femur and acetabulum with chronic superolateral subluxation of the proximal femur is unchanged. CT/CT abdomen pelvis w IV con IMPRESSION: Limited examination secondary to motion and artifacts generated by the patient's arms that overlie the upper abdomen. 1. Bibasilar subsegmental atelectasis versus early consolidation. 2. Nonspecific filling defect within a segmental branch of the right lower lobe pulmonary artery; uncertain if this represents an artifact versus a pulmonary emboli. Further evaluation with a CTA chest pulmonary emboli protocol could be obtained as clinically deemed appropriate. 3. Partially calcified mediastinal and hilar lymphadenopathy of uncertain etiology. 4. Redemonstration of a lateral wound and fistulous tract extending to the right hip joint space with redemonstration of a large, complex joint effusion with significant surrounding soft tissue thickening and stranding, not significantly changed since 06/19/2023. Pronounced bony remodeling/erosion of the femur and acetabulum with chronic superolateral subluxation of the proximal femur is unchanged. Findings are most consistent with chronic septic arthritis. 5. Compression deformities from T9 through L2 are stable compared to 06/20/2023. The compression deformity at L2 is severe with stable retropulsion. Additional age indeterminate moderate compression deformity at T8, not previously included in the [id number]. Correlate with point tenderness. 6. Moderate amount of stool burden in the colon and large fecal ball in the rectum. Correlate clinically for constipation. This critical result was discussed with Dr Lockwood at 09/01/2023 9:11 PM and it was ascertained that the content and urgency of the report was understood at the time of direct communication.
--- NOTE | ~2023-09-01 | CT_ITS ---
EXAMINATION: CT ANGIOGRAM OF THE CHEST WITH AND WITHOUT CONTRAST (CT PULMONARY ANGIOGRAM FOR PE) CLINICAL INFORMATION: Reason for Exam filling defect on chest CT COMPARISON: Previous of the same day. TECHNIQUE: Prior to contrast administration, noncontrast localization images were obtained. Subsequently, multidetector volumetric imaging was performed from the thoracic inlet to below the diaphragms following the administration of 65 mL Omnipaque 350 intravenous contrast. No contrast reaction reported Sagittal, coronal, and MIP oblique sagittal reformatted images were obtained on the CT workstation, uploaded to PACS, and reviewed. This CT examination was performed using dose optimization techniques as appropriate, variously including the following: *Automated exposure control *Adjustment of mA and/or kV according to patient size (this includes techniques or standardized protocols for targeted exams where dose is matched to indication/reason for exam; i.e. extremities or head) *Use of iterative reconstruction technique Total exam dose-length product 197 mGy-cm FINDINGS: QUALITY OF STUDY/CONTRAST BOLUS: Satisfactory. PULMONARY ARTERIES: No pulmonary emboli. THORACIC AORTA: No aneurysm. LUNG: There is bilateral lower lobe consolidation similar to previous. PLEURA: No pleural effusion or pneumothorax. MEDIASTINUM: Normal heart size. No pericardial effusion. No hilar or mediastinal lymphadenopathy. No evidence of septal bowing or right heart strain. CORONARY ARTERY CALCIFICATION: None visualized on this study. CHEST WALL/AXILLA: No axillary or internal mammary lymphadenopathy. OSSEOUS STRUCTURES: There are stable T8, T9 and T11 compression deformities. UPPER ABDOMEN: Unremarkable. No reflux of contrast into the hepatic veins to suggest elevated right heart pressures. CT/CT angio chest PE protocol IMPRESSION: No evidence for pulmonary embolism. Bilateral lower lobe consolidation possibly atelectasis and less likely infiltrate. VTE: negative
--- NOTE | ~2023-09-01 | XR_ITS ---
EXAMINATION: XR CHEST CLINICAL INFORMATION: Fever. COMPARISON: Chest x-ray June 19, 2023, 10:43 PM TECHNIQUE: Frontal portable view of the chest was obtained. 1507 hours FINDINGS: Redemonstration of mild diffuse interstitial lung markings similar prior chest x-rays. No acute airspace disease. There is no pleural effusion or pneumothorax. Heart size normal. Cardiac and mediastinal contours normal. Heavy vascular calcifications of aorta. [place] shaped opacity over the right anterior first rib unchanged since chest x-ray June 03, 2023. XR/XR chest 1V IMPRESSION: 1. No acute abnormality of chest. 2. Mild diffuse interstitial lung markings similar prior chest x-ray June 03, 2023.
--- NOTE | 2023-09-01 14:55 | ECG_ITS ---
Test Reason : FEVER Blood Pressure : / mmHG Vent. Rate : 100 BPM Atrial Rate : 100 BPM P-R Int : 160 ms QRS Dur : 082 ms QT Int : 326 ms P-R-T Axes : 030 -18 027 degrees QTc Int : 420 ms Normal sinus rhythm Normal ECG When compared with ECG of 19-JUN-2023 15:01, No significant change was found Referred By: Charo Lockwood Electronically Signed By:FÁTIMA COOL MD
[2023-09-01] MEDS: 0.9 % Sodium Chloride 2,000 ML 999 ML IVCONT (15:05)
[2023-09-01 15:18] LABS: Venous Blood Gas Refer to POC result
[2023-09-01 15:20] LABS: MANUAL DIFF FLAG NO
--- NOTE | 2023-09-01 15:20 | ED_ITS ---
HPI - General Adult General Chief complaint: Fever Stated complaint: SESPSIS ALERT,AMS,FEBRILE,TACHYPNEIC,TACHYCARDIC Time Seen by Provider: 09/01/23 14:41 Source: EMS Mode of arrival: EMS Limitations: other History of Present Illness HPI narrative: Patient comes to the emergency room via EMS from home. Patient is visiting nurse noted that the patient a fever of 103 rectal today, unclear source. Patient has history of advanced dementia, nonverbal at baseline. Of note, patient was here in June, almost 2 months ago. Patient was here very sick, septic, patient had a right psoas abscess and right hip septic arthritis. Patient does not seem to have any erythema around the hip. No one for patient's caretakers at bedside at this time, we will try to contact them for further information. Related Data Home Medications Medication Instructions Recorded Confirmed acetaminophen 500 mg tablet 1,000 mg PO Q4H PRN Pain 02/21/22 06/29/23 (Tylenol Extra Strength) cholecalciferol (vitamin D3) 25 25 mcg PO Q OTHER DAY 06/19/23 06/29/23 mcg (1,000 unit) capsule cyanocobalamin (vitamin B-12) 1,000 mcg PO Q OTHER DAY 06/19/23 06/29/23 1,000 mcg tablet docusate sodium 100 mg capsule 100 mg PO BID PRN Constipation 06/19/23 06/29/23 lidocaine 4 % topical patch 1 patch topical DAILY PRN pain 06/19/23 06/29/23 multivitamin 1 tab PO Q OTHER DAY 06/19/23 06/29/23 polyethylene glycol 3350 17 gram 17 g PO DAILY PRN Constipation 06/19/23 06/29/23 oral powder packet (Miralax) Previous Rx's Medication Instructions Recorded escitalopram oxalate 10 mg tablet 10 mg PO DAILY #90 tabs 02/21/22 hydrocolloid dressing 8 X 12 #5 ea 02/21/22 (DuoDERM CGF Dressing) adhesive tape 1 X 10 yard #2 ea 04/13/22 adhesive tape 1 X 10 yard #2 ea 04/13/22 ([employer]) adhesive tape 1 X 10 yard #2 ea 04/13/22 ([employer]) gauze bandage 4 X 4 #1,200 ea 04/13/22 gauze bandage 4 X 4 #1,200 ea 04/13/22 powered recliner chair #1 ea 11/22/22 roho seat cushion #1 ea 11/22/22 ferrous sulfate 325 mg (65 mg 325 mg PO DAILY #90 tabs 12/23/22 iron) tablet,delayed release nebulizers #1 ea 01/06/23 Air mattress overlay #1 ea 03/03/23 Adult disposable briefs #200 ea 03/17/23 body wipes #1,200 ea 03/17/23 disposable bed pads #100 ea 03/17/23 disposable gloves (Vinyl Gloves) #200 ea 03/17/23 levothyroxine 100 mcg tablet 100 mcg PO DAILY #90 tabs 04/02/23 cefuroxime axetil 500 mg tablet 500 mg PO BID 7 days #20 tabs 06/29/23 gabapentin 100 mg capsule 200 mg (2 x 100 mg) PO QAM #180 06/29/23 caps gabapentin 300 mg capsule 300 mg PO BEDTIME #90 caps 06/29/23 gauze bandage 2 X 2 (Band-Aid #2,400 ea 06/29/23 Gauze Pads) gauze bandage 4 X 4 #1,200 ea 06/29/23 sulfamethoxazole 800 1 tab PO BID #20 tabs 06/29/23 mg-trimethoprim 160 mg tablet (Bactrim DS) doxycycline hyclate 100 mg tablet 100 mg PO BID 30 days #60 tabs 07/04/23 baclofen 10 mg tablet 10 mg PO DAILY #90 tabs 07/12/23 folic acid 1 mg tablet 1 mg PO DAILY #90 tabs 07/12/23 cetirizine 10 mg capsule (Zyrtec) 10 mg PO DAILY PRN allergy 08/24/23 symptoms #90 caps Allergies Allergy/AdvReac Type Severity Reaction Status Date / Time Louin nut Allergy Unknown Verified 07/03/23 13:12 lactose Allergy Diarrhea Verified 07/03/23 13:12 Review of Systems 2 Review of Systems: Yes Unobtainable due to mental condition PMFSH Past Medical History Medical History Protein malnutrition Decubitus ulcer, unstageable with infection Colovaginal fistula Shortness of breath Rash Elevated LFTs Dementia Osteomyelitis of right hip Pressure injury of ankle, unstageable Pressure injury of sacral region, stage 3 Unspecified open wound, right hip, initial encounter Dementia Leukocytosis (leucocytosis) Fever Preoperative cardiovascular examination Pre-op evaluation Dislocation, hip closed History of pacemaker Hip dislocation, right Closed dislocation of right hip Visit for wound check Pacemaker Symptomatic bradycardia Syncope Sinus pause Abnormal EKG Displaced fracture of right femoral neck Closed hip fracture Urinary incontinence Balance disorder Left leg weakness Dementia Memory loss PTSD (post-traumatic stress disorder) Tobacco dependence Lactose intolerance Hypothyroidism Abnormal urine odor Surgical History History of hemiarthroplasty of right hip Hx of total hip arthroplasty No pertinent past surgical history S/P [place] procedure Status post hip hemiarthroplasty Family History Family History Mother Unknown family medical history Father Unknown family medical history Social History Social History Household Members: Spouse Housing: Apartment Housing Other:: From [facility] Do you presently have visiting nurse or other home services: Yes Unable to assess alcohol history related to: Unable to respond Alcohol intake: never Patient Tobacco Use Status: Former Tobacco user Tobacco use type: Cigarette Cigarettes Per Day: 5.0 Years Smoked: since teen years per pt e-Cigarette/Vaping Use: Never Used Second Hand Smoke Exposure: No Substance Use Type: Marijuana Advance Directives: Yes Advance Directives on File: Yes Advance Directives Date on File: 06/06/23 Patient : No service: Yes Current occupational status: disabled Current occupation: rt handed Cognitive needs: Yes Hearing needs: No Vision needs: Yes Physical Exam ED Vital Signs: Vital Signs - 24 hr 09/01/23 14:40 09/01/23 16:00 09/01/23 16:20 Temperature 102.6 F H 101.9 F H Pulse Rate 104 H 101 H 101 H Respiratory Rate 32 H 24 H 24 H Blood Pressure 110/54 L 106/65 99/58 L Pulse Oximetry 95 96 93 Oxygen Delivery Method Room Air Room Air Room Air 09/01/23 18:47 09/01/23 21:00 Temperature 102.6 F H 101.5 F H Pulse Rate 109 H 97 Respiratory Rate 20 22 H Blood Pressure 97/43 L 97/46 L Pulse Oximetry 95 95 Oxygen Delivery Method Room Air Room Air BMI result Body Mass Index 19.2 Const Other: Appearance: Somnolent, wakes up to voice Eyes: Pupils equal, round and reactive to light. ENT: Pharynx normal. Neck: Normal inspection. Neck supple. No lymph nodes noted. No crepitus CVS: Normal heart rate and rhythm. Pulses normal. Normal S1 and S2 Respiratory: No respiratory distress. Breath sounds normal. No Wheezing. No rales Abdomen: Soft and nontender. No rigidity. No distention. Skin: Skin warm and dry. Patient has 1 cm x 1 cm sacral ulcer, wound is clean Extremities: No lower extremity edema. Lower extremity contractures Neuro: Unable to participate in cranial nerve assessment Psych: calm Course Course Course Narrative: -patient's blood pressure 110/54, tachycardic, tachypneic, temperature 102.6 degrees. -patient is empirically getting IV fluids and antibiotics. All of patient's labs and imaging pending Medications Administered Discontinued Medications Generic Name Dose Route Start Last Admin Trade Name Freq PRN Reason Stop Dose Admin Acetaminophen 650 mg 09/01/23 18:51 09/01/23 19:23 Acetaminophen Supp 650 Mg Supp.Rect KS 09/01/23 18:52 650 mg ONCE ONE Administration Sodium Chloride 2,000 mls @ 999 mls/hr 09/01/23 14:56 09/01/23 15:05 Ns IVCONT 09/01/23 16:56 999 mls/hr .Q2H1M ONE Administration Piperacillin Sod/Tazobactam 50 mls @ 100 mls/hr 09/01/23 14:56 09/01/23 17:00 Sod 3.375 gm/ Sodium Chloride IV 09/01/23 15:25 Infused ONCE ONE Infusion Iohexol 100 ml 09/01/23 19:48 09/01/23 19:49 Iohexol 350 Mg/Ml 100 Ml Infus..Btl IV 09/01/23 19:49 85 ml ONCE ONE Administration Medical Decision Making Medical Decision Making [facility] Narrative: -my interpretation of labs, patient's has an elevated white blood cell count. 13.3. Patient's urine is positive for UTI. -Patient has already been empirically treated with IV fluids and IV antibiotics, given her previous history of psoas ileal abscess -discussed the CT scan report with Dr. Lombardi from Radiology. Seems that patient has a filling defect in the right lower lobe, highly suspicious for pulmonary embolism. We are going to go ahead and repeat the CT scan of the chest this time with a pulmonary embolism protocol. -I discussed the patient with Dr. Erazo, patient being admitted, results of the CT scan with pulmonary embolism is pending. Dr. Erazo will follow up with the results Differential Diagnosis Differential Diagnoses: The differential diagnosis associated with the presentation includes (Psoas abscess, septic joint, pneumonia, COVID, influenza, urinary tract infection) Admission/Observation Consideration of admission/observation: Escalation of care including admission/observation considered Consult Healthcare Provider Management of the patient was discussed with: Hospitalist Lab Data MDM Lab Attestation statement: I reviewed the patient's lab results. 09/01/23 15:08 09/01/23 15:08 Labs: Lab Results 09/01/23 09/01/23 09/01/23 Range/Units 14:53 15:08 15:13 WBC 13.3 H (4.8-10.8) X10*3/uL RBC 4.34 (4.20-5.50) X10*6/uL Hgb 12.8 (12.0-16.0) g/dl Hct 39.6 (37.0-47.0) % MCV 91.2 (80.0-98.0) fL MCH 29.5 (27.0-33.0) pg MCHC 32.3 (31.0-35.0) g/dl RDW 15.3 (11.0-16.0) % Plt Count 359 (160-400) X10*3/uL MPV 10.5 (9.4-12.3) fL Immature Gran % (Auto) 0.5 H (0.0-0.4) % Neut % (Auto) 78.6 H (45-73) % Lymph % (Auto) 12.3 L (20-40) % [place] % (Auto) 8.0 (2-11) % Eos % (Auto) 0.2 (0-4) % Baso % (Auto) 0.4 (0-2) % Lymph # (Auto) 1.6 (1.2-4.9) X10*3/uL [place] # (Auto) 1.1 (0.1-1.2) X10*3/uL Eos # (Auto) 0.0 (0.0-0.4) X10*3/uL Baso # (Auto) 0.1 (0.0-0.2) X10*3/uL Abs Immat Gran (auto) 0.07 H (0.00-0.03) X10*3/uL Absolute Neuts (auto) 10.5 H (2.0-8.3) x10*3/uL Absolute Nucleated RBC 0.000 (0.0-0.012) X10*3/uL Nucleated RBC % (auto) 0.0 (0.0-0.2) /100WBC PT 13.0 (11.1-13.3) SEC INR 1.1 (0.9-1.1) APTT 30.1 (26.0-36.4) SEC VBG pH 7.43 (7.32-7.43) VBG pCO2 45 mmHg VBG pO2 43 mmHg VBG HCO3 30 H (22-26) mmol/L VBG O2 Saturation 66.0 % VBG Base Excess 5.4 mmol/L Sodium 137 (135-145) mmol/L Potassium 4.2 D (3.3-5.1) mmol/L Chloride 101 (96-108) mmol/L Carbon Dioxide 24 (22-29) mmol/L Anion Gap 16 (12-20) BUN 14 (9-16) mg/dL Creatinine 0.53 (0.5-1.4) mg/dL Estim Creat Clear Calc 86.9 Estimated GFR > 60 Random Glucose 95 (60-115) mg/dL Lactic Acid 1.4 (0.5-2.0) mmol/L Calcium 10.5 H (8.4-10.2) mg/dL Magnesium 1.9 (1.6-2.6) mg/dL Total Bilirubin 0.4 (0.0-1.0) mg/dL Direct Bilirubin 0.1 (0.0-0.5) mg/dL AST 27 (5-31) U/L ALT 30 (0-31) U/L Alkaline Phosphatase 115 (39-117) U/L Troponin I High Sens < 2.7 (<3.5-17.0) ng/L Total Protein 7.5 (6.5-8.0) g/dL Albumin 3.6 (3.5-5.0) g/dL Urine Color Urine Appearance Urine pH (5.0-9.0) Ur Specific [place] (1.005-1.025) Urine Protein (Neg-Trace) mg/dL Urine Glucose (UA) (Negative) mg/dL Urine Ketones (Negative) mg/dL Urine Blood (Negative) Urine Nitrite (Negative) Ur Leukocyte Esterase (Negative) Urine RBC (0-2) /HPF Urine WBC (0-5) /HPF Ur Squamous Epith Cells (0-2) /HPF Urine Bacteria (None Seen) Hyaline Casts (0-2) /LPF COVID-19 (BOB) (Negative) COVID-19 Clin Com Influenza Type A (PCR) (Negative) Influenza Type B (PCR) (Negative) RSV RNA Qual (PCR) (Negative) SARS-CoV-2 RNA (RT-PCR) (Negative) 09/01/23 09/01/23 09/01/23 Range/Units 16:04 16:19 19:29 WBC Cancelled (4.8-10.8) X10*3/uL RBC Cancelled (4.20-5.50) X10*6/uL Hgb Cancelled (12.0-16.0) g/dl Hct Cancelled (37.0-47.0) % MCV Cancelled (80.0-98.0) fL MCH Cancelled (27.0-33.0) pg MCHC Cancelled (31.0-35.0) g/dl RDW Cancelled (11.0-16.0) % Plt Count Cancelled (160-400) X10*3/uL MPV Cancelled (9.4-12.3) fL Immature Gran % (Auto) Cancelled (0.0-0.4) % Neut % (Auto) Cancelled (45-73) % Lymph % (Auto) Cancelled (20-40) % [place] % (Auto) Cancelled (2-11) % Eos % (Auto) Cancelled (0-4) % Baso % (Auto) Cancelled (0-2) % Lymph # (Auto) Cancelled (1.2-4.9) X10*3/uL [place] # (Auto) Cancelled (0.1-1.2) X10*3/uL Eos # (Auto) Cancelled (0.0-0.4) X10*3/uL Baso # (Auto) Cancelled (0.0-0.2) X10*3/uL Abs Immat Gran (auto) Cancelled (0.00-0.03) X10*3/uL Absolute Neuts (auto) Cancelled (2.0-8.3) x10*3/uL Absolute Nucleated RBC Cancelled (0.0-0.012) X10*3/uL Nucleated RBC % (auto) Cancelled (0.0-0.2) /100WBC PT (11.1-13.3) SEC INR (0.9-1.1) APTT (26.0-36.4) SEC VBG pH (7.32-7.43) VBG pCO2 mmHg VBG pO2 mmHg VBG HCO3 (22-26) mmol/L VBG O2 Saturation % VBG Base Excess mmol/L Sodium (135-145) mmol/L Potassium (3.3-5.1) mmol/L Chloride (96-108) mmol/L Carbon Dioxide (22-29) mmol/L Anion Gap (12-20) BUN (9-16) mg/dL Creatinine (0.5-1.4) mg/dL Estim Creat Clear Calc Estimated GFR Random Glucose (60-115) mg/dL Lactic Acid (0.5-2.0) mmol/L Calcium (8.4-10.2) mg/dL Magnesium (1.6-2.6) mg/dL Total Bilirubin (0.0-1.0) mg/dL Direct Bilirubin (0.0-0.5) mg/dL AST (5-31) U/L ALT (0-31) U/L Alkaline Phosphatase (39-117) U/L Troponin I High Sens (<3.5-17.0) ng/L Total Protein (6.5-8.0) g/dL Albumin (3.5-5.0) g/dL Urine Color Yellow Urine Appearance Clear Urine pH 6.5 (5.0-9.0) Ur Specific [place] 1.020 (1.005-1.025) Urine Protein Trace (Neg-Trace) mg/dL Urine Glucose (UA) Negative (Negative) mg/dL Urine Ketones Negative (Negative) mg/dL Urine Blood Moderate (2+) H (Negative) Urine Nitrite Positive H (Negative) Ur Leukocyte Esterase Negative (Negative) Urine RBC 11-20 H (0-2) /HPF Urine WBC 0-5 (0-5) /HPF Ur Squamous Epith Cells 11-20 (0-2) /HPF Urine Bacteria Trace (None Seen) Hyaline Casts 3-5 (0-2) /LPF COVID-19 (BOB) Negative (Negative) COVID-19 Clin Com See Note Influenza Type A (PCR) NEGATIVE (Negative) Influenza Type B (PCR) NEGATIVE (Negative) RSV RNA Qual (PCR) NEGATIVE (Negative) SARS-CoV-2 RNA (RT-PCR) NEGATIVE (Negative) Independent Interpretation I performed an independent interpretation of an: CT Scan Radiology Impression Discussion of test interpretation with radiology: I have reviewed the radiologist's reading. Radiologist Impression: FINDINGS: CHEST: Limited examination secondary to motion. Lung: Bibasilar subsegmental atelectasis versus early consolidation. Biapical subpleural thickening/scarring, for instance measuring 1 x 1 cm in the right apex (7:27). Intraluminal debris with internal air bubbles in the proximal right trachea (7:97), otherwise central airways are patent. Mild diffuse bronchial wall thickening. No suspicious pulmonary nodule or mass, although evaluation is limited due to motion. Nonspecific filling defect within a segmental branch of the right lower lobe (7:212). Mediastinum: Normal heart size. No pericardial effusion. Partially calcified mediastinal and hilar lymphadenopathy, for example subcarinal lymph node measuring 1.5 cm short axis (7:174) and right hilar lymph node measuring 1.1 cm in short axis (7:176). Pericardium/Pleura: No pleural effusion or pneumothorax. Chest Wall/Axilla: No lymphadenopathy by size criteria. ABDOMEN/PELVIS: Limited examination secondary to motion and artifacts generated by the patient's arms that overlie the upper abdomen. Liver, Gallbladder, Biliary Tree: Liver is normal in size, shape and attenuation. A few too small to characterize hypodensities, for instance hepatic dome (13:10) and inferior medial left hepatic lobe (13:32) are unchanged. Normal CT appearance of the gallbladder. No biliary ductal dilatation. Pancreas: Unremarkable. Spleen: Unremarkable. Adrenal Glands: Unremarkable. Kidneys and Ureters: The kidneys are normal in size, shape, and attenuation. Bosniak 1 cyst measuring 1.2 cm in the lower right kidney, for which no imaging follow-up is recommended. A few additional bilateral too small to characterize cortical hypodensities are also favored to represent simple cysts, for which no imaging follow-up is recommended. Multiple sub-3 mm nonobstructive bilateral renal calculi. Symmetric nephrograms. No hydronephrosis. No perinephric fat stranding. Bladder: Decompressed limiting evaluation. There is a 0.5 cm calculus in the left posterior bladder. A Navarro catheter is noted. Gastrointestinal Tract: The stomach and the small bowel are nondilated. No indirect findings to suspect acute appendicitis. Moderate amount of stool burden in the colon and large fecal ball in the rectum. No significant pericolonic fat stranding or free fluid. No evidence of bowel obstruction. Abdominal Wall: No significant hernia is appreciated. Lymphovascular Structures: No lymphadenopathy by size criteria. Normal caliber abdominal aorta. Scattered atherosclerotic disease. Pelvic Viscera: IUD in similar positioning to prior. A few hyperattenuating intramural lesions, for instance measuring 1 cm on image 61 series 13 and 0.7 cm on image 60, series 13 are unchanged favoring to represent fibroid. No free fluid. Osseous Structures: Stable severe compression deformity at L2 with unchanged 0.4 cm of retropulsion. Stable additional less pronounced compression deformities at from T9 through L1 compared to 06/20/2023. Age indeterminate T8 moderate compression deformity. Redemonstration of a lateral wound and fistulous tract extending to the right hip joint space with redemonstration of a large, complex joint effusion with significant surrounding soft tissue thickening and stranding, not significantly changed. Pronounced bony remodeling/erosion of the femur and acetabulum with chronic superolateral subluxation of the proximal femur is unchanged. CT/CT chest w IV con IMPRESSION: Limited examination secondary to motion and artifacts generated by the patient's arms that overlie the upper abdomen. 1. Bibasilar subsegmental atelectasis versus early consolidation. 2. Nonspecific filling defect within a segmental branch of the right lower lobe pulmonary artery; uncertain if this represents an artifact versus a pulmonary emboli. Further evaluation with a CTA chest pulmonary emboli protocol could be obtained as clinically deemed appropriate. 3. Partially calcified mediastinal and hilar lymphadenopathy of uncertain etiology. 4. Redemonstration of a lateral wound and fistulous tract extending to the right hip joint space with redemonstration of a large, complex joint effusion with significant surrounding soft tissue thickening and stranding, not significantly changed since 06/19/2023. Pronounced bony remodeling/erosion of the femur and acetabulum with chronic superolateral subluxation of the proximal femur is unchanged. Findings are most consistent with chronic septic arthritis. 5. Compression deformities from T9 through L2 are stable compared to 06/20/2023. The compression deformity at L2 is severe with stable retropulsion. Additional age indeterminate moderate compression deformity at T8, not previously included in the [id number]. Correlate with point tenderness. 6. Moderate amount of stool burden in the colon and large fecal ball in the rectum. Correlate clinically for constipation. Independent Historian Clinical information obtained from an independent historian. History obtained from or confirmed by: Spouse Critical Care Time Critical Care Time Critical Care Time: Yes Total Critical Care Time: 75 Attestation: I have personally provided critical care time. Time includes review of lab data, radiology results, discussion with consultants, and monitoring for potential decompensation. Intervention performed as documented. Discharge Plan Discharge Clinical Impression: Fever, UTI (urinary tract infection), Pulmonary embolism Patient Disposition: Admitted As Inpatient Prescriptions: No Action (DME) roho seat cushion See Rx Instructions .Route .MEDSUPPLY Qty: 1 0RF Rx Instructions: As directed (DME) powered recliner chair See Rx Instructions .Route .MEDSUPPLY Qty: 1 0RF Rx Instructions: As directed ferrous sulfate 325 mg (65 mg iron) tablet,delayed release (DR/EC) 325 mg PO DAILY Qty: 90 0RF (DME) Air mattress overlay Misc See Rx Instructions .Route Qty: 1 0RF Rx Instructions: As directed (DME) Adult disposable briefs Large See Rx Instructions .Route .MEDSUPPLY Qty: 200 6RF Rx Instructions: Pull-ups , adult disposable briefs. (DME) body wipes See Rx Instructions .Route .MEDSUPPLY Qty: 1200 3RF Rx Instructions: As directed (DME) disposable bed pads See Rx Instructions .Route .MEDSUPPLY Qty: 100 5RF Rx Instructions: As directed (DME) disposable gloves [Vinyl Gloves] Misc See Rx Instructions .Route Qty: 200 5RF Rx Instructions: As directed levothyroxine 100 mcg tablet 100 mcg PO DAILY Qty: 90 3RF baclofen 10 mg tablet 10 mg PO DAILY Qty: 90 3RF folic acid 1 mg tablet 1 mg PO DAILY Qty: 90 3RF Zyrtec 10 mg capsule 10 mg PO DAILY PRN (Reason: allergy symptoms) Qty: 90 1RF (DME) adhesive tape [[employer]] 1 X 10 -yard tape See Rx Instructions .Route Qty: 2 0RF Rx Instructions: As directed (DME) adhesive tape [[employer]] 1 X 10 -yard tape See Rx Instructions .Route Qty: 2 0RF Rx Instructions: As directed (DME) gauze bandage 4 X 4 bandage See Rx Instructions .Route Qty: 1200 0RF Rx Instructions: As directed (DME) gauze bandage 4 X 4 bandage See Rx Instructions .Route Qty: 1200 0RF Rx Instructions: As directed (DME) adhesive tape 1 X 10 -yard tape See Rx Instructions .Route Qty: 2 0RF Rx Instructions: As directed multivitamin Tablet 1 tab PO Q OTHER DAY Rx Instructions: On days not taking B12 and D3 cyanocobalamin (vitamin B-12) 1,000 mcg tablet 1,000 mcg PO Q OTHER DAY Rx Instructions: On days not taking multivitamin polyethylene glycol 3350 [Miralax] 17 gram powder in packet 17 g PO DAILY PRN (Reason: Constipation) docusate sodium 100 mg capsule 100 mg PO BID PRN (Reason: Constipation) cholecalciferol (vitamin D3) 25 mcg (1,000 unit) capsule 25 mcg PO Q OTHER DAY Rx Instructions: On days not taking multivitamin lidocaine 4 % Adhesive Patch,Medicated 1 patch TOPICAL DAILY PRN (Reason: pain) acetaminophen [Tylenol Extra Strength] 500 mg tablet 1,000 mg PO Q4H PRN (Reason: Pain) (DME) DuoDERM CGF Dressing 8 X 12 bandage See Rx Instructions .Route Qty: 5 0RF Rx Instructions: As directed escitalopram oxalate 10 mg tablet 10 mg PO DAILY Qty: 90 3RF (DME) nebulizers Misc See Rx Instructions .Route Qty: 1 0RF Rx Instructions: 1 bid cefuroxime axetil 500 mg tablet 500 mg PO BID 7 Days Qty: 20 0RF sulfamethoxazole-trimethoprim [Bactrim DS] 800-160 mg tablet 1 tab PO BID Qty: 20 0RF gabapentin 100 mg capsule 200 mg PO QAM Qty: 180 2RF gabapentin 300 mg capsule 300 mg PO BEDTIME Qty: 90 3RF (DME) gauze bandage 4 X 4 bandage See Rx Instructions .Route Qty: 1200 3RF Rx Instructions: as directed (DME) gauze bandage [Band-Aid Gauze Pads] 2 X 2 bandage See Rx Instructions .Route Qty: 2400 2RF Rx Instructions: As directed doxycycline hyclate 100 mg tablet 100 mg PO BID 30 Days Qty: 60 5RF
[2023-09-01 15:22] LABS: VBG Base Excess 5.4 mmol/L; VBG HCO3 30 mmol/L (22-26); VBG pCO2 45 mmHg; VBG pH 7.43 (7.32-7.43); VBG pO2 43 mmHg
[2023-09-01 15:26] LABS: Basophils Absolute Auto 0.1 X10*3/uL (0.0-0.2); Basophils Percent Auto 0.4 % (0-2); Eosinophils Percent Auto 0.2 % (0-4); Hematocrit 39.6 % (37.0-47.0); Hemoglobin 12.8 g/dl (12.0-16.0); INTERNATIONAL NORM RATIO 1.1 (0.9-1.1); Imm Gran Abs Auto 0.07 X10*3/uL (0.00-0.03); Imm Gran Pct Auto 0.5 % (0.0-0.4); Lymphocytes Absolute Auto 1.6 X10*3/uL (1.2-4.9); Lymphocytes Percent Auto 12.3 % (20-40); Mean Corpuscular HGB Conc 32.3 g/dl (31.0-35.0); Mean Corpuscular Hemoglobin 29.5 pg (27.0-33.0); Mean Corpuscular Volume 91.2 fL (80.0-98.0); Mean Platelet Volume 10.5 fL (9.4-12.3); Monocytes Absolute Auto 1.1 X10*3/uL (0.1-1.2); Neutrophils Absolute Auto 10.5 x10*3/uL (2.0-8.3); Neutrophils Percent Auto 78.6 % (45-73); Platelet Count 359 X10*3/uL (160-400); Red Blood Count 4.34 X10*6/uL (4.20-5.50); Red Cell Distribution Width 15.3 % (11.0-16.0); White Blood Count 13.3 X10*3/uL (4.8-10.8)
[2023-09-01 15:28] LABS: Partial Thromboplastin Time 30.1 SEC (26.0-36.4)
[2023-09-01 15:30] LABS: Lactic Acid 1.4 mmol/L (0.5-2.0)
[2023-09-01 15:43] LABS: Alanine Aminotransferase 30 U/L (0-31); Albumin Level 3.6 g/dL (3.5-5.0); Alkaline Phosphatase 115 U/L (39-117); Anion Gap 16 (12-20); Aspartate Amino Transferase 27 U/L (5-31); Bilirubin Total 0.4 mg/dL (0.0-1.0); Blood Urea Nitrogen 14 mg/dL (9-16); Calcium 10.5 mg/dL (8.4-10.2); Carbon Dioxide 24 mmol/L (22-29); Chloride 101 mmol/L (96-108); Creatinine Clr Calc Pharmacy 86.9; Estimated Glomerular Filt Rate > 60; Glucose Random 95 mg/dL (60-115); Magnesium 1.9 mg/dL (1.6-2.6); Potassium 4.2 mmol/L (3.3-5.1); Sodium 137 mmol/L (135-145); Total Protein 7.5 g/dL (6.5-8.0)
[2023-09-01] MEDS: Piperacillin Sodium/Tazobactam 3.375 GM in 0.9 % Sodium Chloride 50 ML IV (16:08)
[2023-09-01 16:33] LABS: Bilirubin Direct 0.1 mg/dL (0.0-0.5)
[2023-09-01 16:39] LABS: Troponin-I High Sensitivity < 2.7 ng/L (<3.5-17.0)
[2023-09-01 16:52] LABS: COVID-19 Test Negative (Negative); IDNOW Serial# 9DB6401D
[2023-09-01 17:11] LABS: Influenza A PCR NEGATIVE (Negative); Influenza B PCR NEGATIVE (Negative); Resp Syncy Virus RNA Qual PCR NEGATIVE (Negative); SARS COV2 PCR INHOUSE NEGATIVE (Negative)
--- NOTE | 2023-09-01 19:18 | MHC.EDTECH ---
PATIENT WAS INCONIENT OF URINE ,CARE GIVEN AND BEDDING CHANGE ,PT RESTING QUIETLY IN BED ,PT AT BEDSIDE .
[2023-09-01] MEDS: Acetaminophen Supp 650 MG SUPP.RECT PR (19:23)
[2023-09-01 19:37] LABS: Appearance Urine Clear; Color Urine Yellow; Glucose Urine UA Negative (Negative); Leukocyte Esterase Urine Negative (Negative); Nitrite Urine Positive (Negative); PH 6.5 (5.0-9.0); UMIC TRIGGER UACC YES; Urine Blood Moderate (2+) (Negative); Urine Ketones Negative (Negative); Urine Protein Trace mg/dL (Neg-Trace)
[2023-09-01 19:45] LABS: Bacteria Urine Trace (None Seen); UACC Culture Trigger YES; WBC Urine 0-5 /HPF (0-5)
[2023-09-01] MEDS: iohexoL 350 MG/ML 100 ML INFUS..BTL IV (19:49)
--- NOTE | 2023-09-01 22:00 | P.HPHOSP_ITS ---
History of Present Illness Date of Service: 09/01/23 Chief Complaint: Fever This is a 58-year-old female with history of hypothyroidism, advanced dementia minimally verbal at baseline, mood disorder, complete heart block status post ppm, history of MRSA and osteomyelitis of the right hip who was sent to the ER for evaluation of fevers. Unable to obtain history from the patient. History obtained from ER provider and chart review. As per the patient's , she was noted to have fever and was sent to the ER for further evaluation. He confirms that patient is DNR/DNI. He is the caregiver of the patient and does report cough. In the emergency department, patient was found to be septic and imaging with bilateral consolidation and fistulous track extending to right hip joint space with large complex joint effusion. Review of Systems 2 Review of Systems: Yes Unobtainable due to mental condition PMFSH Medical History Protein malnutrition Decubitus ulcer, unstageable with infection Colovaginal fistula Shortness of breath Rash Elevated LFTs Dementia Osteomyelitis of right hip Pressure injury of ankle, unstageable Pressure injury of sacral region, stage 3 Unspecified open wound, right hip, initial encounter Dementia Leukocytosis (leucocytosis) Fever Preoperative cardiovascular examination Pre-op evaluation Dislocation, hip closed History of pacemaker Hip dislocation, right Closed dislocation of right hip Visit for wound check Pacemaker Symptomatic bradycardia Syncope Sinus pause Abnormal EKG Displaced fracture of right femoral neck Closed hip fracture Urinary incontinence Balance disorder Left leg weakness Dementia Memory loss PTSD (post-traumatic stress disorder) Tobacco dependence Lactose intolerance Hypothyroidism Abnormal urine odor Family History Mother Unknown family medical history Father Unknown family medical history Surgical History S/P [place] procedure History of hemiarthroplasty of right hip Hx of total hip arthroplasty Status post hip hemiarthroplasty No pertinent past surgical history Social History Household Members: Spouse Housing: Apartment Housing [facility] Do you presently have visiting nurse or other home services: Yes Unable to assess alcohol history related to: Unable to respond Alcohol intake: never Patient Tobacco Use Status: Former Tobacco user Tobacco use type: Cigarette Cigarettes Per Day: 5.0 Years Smoked: since teen years per pt Smoked in Last 30 Days: No e-Cigarette/Vaping Use: Never Used Second Hand Smoke Exposure: No Use of substances other than those prescribed or required for medical reasons: No Substance Use Type: Marijuana Have you been hit, kicked, punched, or otherwise hurt by someone within the past year? If so, by whom?: No Do you feel safe in your current relationship?: Yes Is there a partner from a previous relationship who is making you feel unsafe now?: No Are you made to feel afraid or neglected: No Advance Directives: Yes Advance Directives on File: Yes Advance Directives Date on File: 06/06/23 Do you have thoughts of harming others: None Do you have a plan to hurt others: No Plan Recently lost weight without trying: No Eating poorly because of decreased appetite: No Nutrition Risks: No Nutritional Risk Patient : No : No Poor oral hygiene: No service: Yes Current occupational status: disabled Current occupation: rt handed Cognitive needs: Yes Hearing needs: No Vision needs: Yes Meds Allergies Allergy/AdvReac Type Severity Reaction Status Date / Time [place] nut Allergy Unknown Verified 09/02/23 00:56 lactose Allergy Diarrhea Verified 09/02/23 00:56 Active Medications: Current Medications Vancomycin HCl 1,000 mg/ (Sodium Chloride) 270 mls @ 270 mls/hr IV ONCE ONE Stop: 09/01/23 22:57 Pharmacy Consult (Consult Rx Vancomycin Dosing) 1 each MISCELLANE DAILY PRN PRN Reason: Consult order Home Medications Medication Instructions Recorded Confirmed Last Taken Type acetaminophen 500 mg tablet 1,000 mg PO Q4H PRN Pain 02/21/22 06/29/23 Unknown History (Tylenol Extra Strength) cholecalciferol (vitamin D3) 25 25 mcg PO Q OTHER DAY 06/19/23 06/29/23 Unknown History mcg (1,000 unit) capsule cyanocobalamin (vitamin B-12) 1,000 mcg PO Q OTHER DAY 06/19/23 06/29/23 Unknown History 1,000 mcg tablet docusate sodium 100 mg capsule 100 mg PO BID PRN Constipation 06/19/23 06/29/23 Unknown History lidocaine 4 % topical patch 1 patch topical DAILY PRN pain 06/19/23 06/29/23 Unknown History multivitamin 1 tab PO Q OTHER DAY 06/19/23 06/29/23 Unknown History polyethylene glycol 3350 17 gram 17 g PO DAILY PRN Constipation 06/19/23 06/29/23 Unknown History oral powder packet (Miralax) Physical Exam 2 Vital Signs and Narrative: Vital Signs: Last Vital Signs Temp 101.5 F H 09/01/23 21:00 Pulse 97 09/01/23 21:00 Resp 22 H 09/01/23 21:00 BP 97/46 L 09/01/23 21:00 Pulse Ox 95 09/01/23 21:00 O2 Del Method Room Air 09/01/23 21:00 BMI result Body Mass Index 19.2 Elderly female lying in bed in no distress Neck supple, no JVD Regular rate and rhythm, S1-S2 heard Bilateral crackles Abdomen soft nontender, no guarding, no rigidity Patient is awake, alert and nonverbal, unable to assess orientation Right hip: Healing wound seen, no serosanguineous drainage Psych: Normal mood Results Labs 09/01/23 15:08 09/01/23 15:08 Labs: Laboratory Results - last 24 hr 09/01/23 09/01/23 09/01/23 14:53 15:08 15:13 MCV 91.2 MCH 29.5 MCHC 32.3 RDW 15.3 Plt Count 359 MPV 10.5 Immature Gran % (Auto) 0.5 H Neut % (Auto) 78.6 H Lymph % (Auto) 12.3 L [place] % (Auto) 8.0 Eos % (Auto) 0.2 Baso % (Auto) 0.4 Lymph # (Auto) 1.6 [place] # (Auto) 1.1 Eos # (Auto) 0.0 Baso # (Auto) 0.1 Abs Immat Gran (auto) 0.07 H Absolute Neuts (auto) 10.5 H Absolute Nucleated RBC 0.000 Nucleated RBC % (auto) 0.0 PT 13.0 INR 1.1 APTT 30.1 VBG pH 7.43 VBG pCO2 45 VBG pO2 43 VBG HCO3 30 H VBG O2 Saturation 66.0 VBG Base Excess 5.4 Anion Gap 16 Estim Creat Clear Calc 86.9 Estimated GFR > 60 Random Glucose 95 Lactic Acid 1.4 Calcium 10.5 H Magnesium 1.9 Total Bilirubin 0.4 Direct Bilirubin 0.1 AST 27 ALT 30 Alkaline Phosphatase 115 Total Protein 7.5 Albumin 3.6 Urine Color Urine Appearance Urine pH Ur Specific [place] Urine Protein Urine Glucose (UA) Urine Ketones Urine Blood Urine Nitrite Ur Leukocyte Esterase Urine RBC Urine WBC Ur Squamous Epith Cells Urine Bacteria Hyaline Casts COVID-19 (BOB) COVID-19 Clin Com Influenza Type A (PCR) Influenza Type B (PCR) RSV RNA Qual (PCR) SARS-CoV-2 RNA (RT-PCR) 09/01/23 09/01/23 09/01/23 16:04 16:19 19:29 MCV Cancelled MCH Cancelled MCHC Cancelled RDW Cancelled Plt Count Cancelled MPV Cancelled Immature Gran % (Auto) Cancelled Neut % (Auto) Cancelled Lymph % (Auto) Cancelled [place] % (Auto) Cancelled Eos % (Auto) Cancelled Baso % (Auto) Cancelled Lymph # (Auto) Cancelled [place] # (Auto) Cancelled Eos # (Auto) Cancelled Baso # (Auto) Cancelled Abs Immat Gran (auto) Cancelled Absolute Neuts (auto) Cancelled Absolute Nucleated RBC Cancelled Nucleated RBC % (auto) Cancelled PT INR APTT VBG pH VBG pCO2 VBG pO2 VBG HCO3 VBG O2 Saturation VBG Base Excess Anion Gap Estim Creat Clear Calc Estimated GFR Random Glucose Lactic Acid Calcium Magnesium Total Bilirubin Direct Bilirubin AST ALT Alkaline Phosphatase Total Protein Albumin Urine Color Yellow Urine Appearance Clear Urine pH 6.5 Ur Specific [place] 1.020 Urine Protein Trace Urine Glucose (UA) Negative Urine Ketones Negative Urine Blood Moderate (2+) H Urine Nitrite Positive H Ur Leukocyte Esterase Negative Urine RBC 11-20 H Urine WBC 0-5 Ur Squamous Epith Cells 11-20 Urine Bacteria Trace Hyaline Casts 3-5 COVID-19 (BOB) Negative COVID-19 Clin Com See Note Influenza Type A (PCR) NEGATIVE Influenza Type B (PCR) NEGATIVE RSV RNA Qual (PCR) NEGATIVE SARS-CoV-2 RNA (RT-PCR) NEGATIVE Imaging Radiologist's Impressions: Impressions Chest X-Ray 09/01/23 15:10 IMPRESSION: 1. No acute abnormality of chest. 2. Mild diffuse interstitial lung markings similar prior chest x-ray June 03, 2023. Abdomen/Pelvis CT 09/01/23 20:11 IMPRESSION: Limited examination secondary to motion and artifacts generated by the patient's arms that overlie the upper abdomen. 1. Bibasilar subsegmental atelectasis versus early consolidation. 2. Nonspecific filling defect within a segmental branch of the right lower lobe pulmonary artery; uncertain if this represents an artifact versus a pulmonary emboli. Further evaluation with a CTA chest pulmonary emboli protocol could be obtained as clinically deemed appropriate. 3. Partially calcified mediastinal and hilar lymphadenopathy of uncertain etiology. 4. Redemonstration of a lateral wound and fistulous tract extending to the right hip joint space with redemonstration of a large, complex joint effusion with significant surrounding soft tissue thickening and stranding, not significantly changed since 06/19/2023. Pronounced bony remodeling/erosion of the femur and acetabulum with chronic superolateral subluxation of the proximal femur is unchanged. Findings are most consistent with chronic septic arthritis. 5. Compression deformities from T9 through L2 are stable compared to 06/20/2023. The compression deformity at L2 is severe with stable retropulsion. Additional age indeterminate moderate compression deformity at T8, not previously included in the [id number]. Correlate with point tenderness. 6. Moderate amount of stool burden in the colon and large fecal ball in the rectum. Correlate clinically for constipation. This critical result was discussed with Dr Lockwood at 09/01/2023 9:11 PM and it was ascertained that the content and urgency of the report was understood at the time of direct communication. Chest CT 09/01/23 20:11 IMPRESSION: Limited examination secondary to motion and artifacts generated by the patient's arms that overlie the upper abdomen. 1. Bibasilar subsegmental atelectasis versus early consolidation. 2. Nonspecific filling defect within a segmental branch of the right lower lobe pulmonary artery; uncertain if this represents an artifact versus a pulmonary emboli. Further evaluation with a CTA chest pulmonary emboli protocol could be obtained as clinically deemed appropriate. 3. Partially calcified mediastinal and hilar lymphadenopathy of uncertain etiology. 4. Redemonstration of a lateral wound and fistulous tract extending to the right hip joint space with redemonstration of a large, complex joint effusion with significant surrounding soft tissue thickening and stranding, not significantly changed since 06/19/2023. Pronounced bony remodeling/erosion of the femur and acetabulum with chronic superolateral subluxation of the proximal femur is unchanged. Findings are most consistent with chronic septic arthritis. 5. Compression deformities from T9 through L2 are stable compared to 06/20/2023. The compression deformity at L2 is severe with stable retropulsion. Additional age indeterminate moderate compression deformity at T8, not previously included in the [id number]. Correlate with point tenderness. 6. Moderate amount of stool burden in the colon and large fecal ball in the rectum. Correlate clinically for constipation. This critical result was discussed with Dr Lockwood at 09/01/2023 9:11 PM and it was ascertained that the content and urgency of the report was understood at the time of direct communication. Assessment and Plan (1) Fever: Status: Acute Plan This is a 58-year-old female with history of hypothyroidism, advanced dementia minimally verbal at baseline, mood disorder, complete heart block status post ppm, history of MRSA and osteomyelitis of the right hip who was sent to the ER for evaluation of fevers. #. Sepsis due to pneumonia ?aspiration: Resuscitated with IV crystalloids in the ER. Initiating empiric IV antibiotics. Lactic acid and blood culture obtained. Imaging with fistulous track extending to right hip joint space and large complex joint effusion. Will consult Orthopedics for questionable septic arthritis. Consulted speech #. Hypothyroidism. On Synthroid #. Dementia. Maintain sleep-wake cycle #. Sacral decubitus wound. Consulting Wound Care. Frequent change in position Med rec pending DVT prophylaxis: Lovenox DNR/DNI. Discussed with at bedside NPO Admit as inpatient and will require two night minimum hospital stay for IV antibiotics Time Spent With Patient Time: Total time managing care of this patient today ____ minutes. Quality Stroke Does the patient have a stroke diagnosis?: No VTE Prior VTE?: No VTE Risk Level:: Medical - moderate - high VTE Device Contraindication: Treatment Not Indicated VTE Drug Contraindication: N/A - Med Ordered
--- NOTE | 2023-09-01 22:11 | MHC.EDTECH ---
PATIENT WAS INCONIENT OF URINE ,CARE GIVEN AND BEDDING CHANGE ,PURE WICK IN PLACE ,VITALS TAKEN ,AND PATIENT BELONGINGS LIST DONE ,PT IS COMFORTABLE ,NO APPARENT DISTRESS AT THIS TIME ,WILL CONTINUE TO MONITOR .
[2023-09-01] MEDS: vancomycin HCL 1,250 MG in 0.9 % Sodium Chloride 250 ML 166.67 MG IV (23:46)
[2023-09-01] MEDS: Enoxaparin Sodium 40 MG/0.4 ML SYRINGE SUBCUT (23:46)
[2023-09-02] VITALS (7 sets, daily range): BP systolic 96–135; BP diastolic 53–61; PULSE 86–115; RESP 14–18; TEMP 36.2–39.4; O2SAT 93–95
[2023-09-02] MEDS: Acetaminophen Supp 650 MG SUPP.RECT PR ×3 (01:27→18:58)
[2023-09-02] MEDS: Piperacillin Sodium/Tazobactam 4.5 GM in 0.9 % Sodium Chloride 100 ML IV ×4 (01:28→17:36)
--- NOTE | 2023-09-02 02:48 | HO.SKINPHOTO ---
Location: coccyx Category: unstageable Stage: Length: Width: Depth: cm Location: Category: Stage: Length: Width: Depth: cm Location: Category: Stage: Length: Width: Depth: cm Location: Category: Stage: Length: Width: Depth: cm Location: Category: Stage: Length: Width: Depth: cm Location: Category: Stage: Length: Width: Depth: cm f
[2023-09-02 06:12] LABS: MANUAL DIFF FLAG NO
[2023-09-02 06:24] LABS: Basophils Absolute Auto 0.1 X10*3/uL (0.0-0.2); Basophils Percent Auto 0.4 % (0-2); Eosinophils Percent Auto 0.2 % (0-4); Hematocrit 34.9 % (37.0-47.0); Hemoglobin 11.3 g/dl (12.0-16.0); Imm Gran Abs Auto 0.06 X10*3/uL (0.00-0.03); Imm Gran Pct Auto 0.4 % (0.0-0.4); Lymphocytes Absolute Auto 1.3 X10*3/uL (1.2-4.9); Lymphocytes Percent Auto 9.1 % (20-40); Mean Corpuscular HGB Conc 32.4 g/dl (31.0-35.0); Mean Corpuscular Hemoglobin 29.2 pg (27.0-33.0); Mean Corpuscular Volume 90.2 fL (80.0-98.0); Monocytes Absolute Auto 0.8 X10*3/uL (0.1-1.2); Monocytes Percent Auto 5.9 % (2-11); Neutrophils Absolute Auto 11.8 x10*3/uL (2.0-8.3); Platelet Count 317 X10*3/uL (160-400); Red Blood Count 3.87 X10*6/uL (4.20-5.50); Red Cell Distribution Width 15.3 % (11.0-16.0); White Blood Count 14.1 X10*3/uL (4.8-10.8)
[2023-09-02 06:39] LABS: Anion Gap 13 (12-20); Blood Urea Nitrogen 8 mg/dL (9-16); Carbon Dioxide 21 mmol/L (22-29); Chloride 106 mmol/L (96-108); Creatinine Clr Calc Pharmacy 88.6; Estimated Glomerular Filt Rate > 60; Glucose Random 85 mg/dL (60-115); Potassium 3.5 mmol/L (3.3-5.1); Sodium 136 mmol/L (135-145)
[2023-09-02] MEDS: 0.9 % Sodium Chloride Flush 3 ML SYRINGE IVFLUSH ×2 (07:30→17:36)
--- NOTE | 2023-09-02 08:57 | PHA.PROG ---
Admission Date/Time: September 01, 2023 21:58 Indication: SEPSIS Weight in k.6 kg Adjusted body weight in Kg: [place] body weight in Kg: Obesity Dosing Indication % IBW: Serum Creatinine - Last 168 Hours 09/01/23 09/02/23 15:08 06:03 Creatinine 0.53 0.52 Estimated CrCl and GFR - Last 168 Hours 09/01/23 09/02/23 15:08 06:03 Estim Creat Clear Calc 86.9 88.6 Estimated GFR > 60 > 60 Vancomycin Loading Dose: 1250 Current Vancomycin Dosing Regimen: 750 Q12H Vancomycin Monitoring using AUC goal of 400 - 600 range with trough as surrogate marker: 424 Date and Time for next Vancomycin Level to be drawn:09/03/23 1000 Pharmacist Comments on Vancomycin Plan: Vancomycin dosing will take advantage of [employer] as a clinical decision support tool that uses Bayesian modeling to calculate individual patient's pharmacokinetic parameters and forecast the patient's drug concentration time course with the target goal AUC 24 range of 400 - 600 mg/L/hr.
--- NOTE | 2023-09-02 09:17 | PM.EVENT ---
Event Note Date of Service: 09/02/23 Event Note: No orthopedic intervention warranted at this time Pt has girdle stone No septic arthritis Time Spent With Patient Time: Total time managing care of this patient today ____ minutes.
--- NOTE | 2023-09-02 09:23 | PHA.MEDREC ---
Pharmacy Consult ? Medication Reconciliation Pharmacy has completed the medication reconciliation. Patient's at bedside with list, confirmed OTC meds as well
--- NOTE | 2023-09-02 10:19 | MHC.CM.PN ---
IMM 09/02/23 with HCP, guardian, spouse. Pt lives with spouse, has 78 hours a week [facility] services from [facility]. Spouse is bedside, he said he has learned how to manage IV AB at home with support and assistance from [facility] in the past. Plan is home, resume [facility] [employer] [facility] services, transport via ambulance.
[2023-09-02] MEDS: vancomycin HCL 750 MG in 0.9 % Sodium Chloride 250 ML 265 MG IV (11:12)
--- NOTE | 2023-09-02 11:14 | HO.PM.IMPN ---
Subjective Subjective Date of Service: 09/02/23 Interval History: seen and examined this morning follow up for fever patient doesn't talk much at baseline. is able to state she has pain in her knees. denies shortness of breath history obtained from at bedside Review of Systems Review of Systems: Yes all other systems are reviewed and are negative Constitutional Constitutional: Reports fever(s) Cardiovascular Cardiovascular: Denies chest pain and Denies dyspnea Respiratory Respiratory: Denies cough and Denies dyspnea Gastrointestinal Gastrointestinal: Denies abdominal pain Physical Exam Vital Signs: Vital Signs: Last Vital Signs Temp 100.9 F H 09/02/23 08:53 Pulse 109 H 09/02/23 07:14 Resp 18 09/02/23 07:14 BP 114/57 L 09/02/23 07:14 Pulse Ox 93 09/02/23 07:14 O2 Del Method Room Air 09/02/23 07:14 BMI result Body Mass Index 19.2 Const: Other: slow to answer but able to answer simple questions General: alert and awake Nutritional Appearance: thin Resp: Effort & Inspection: normal respiratory effort, no respiratory distress and no use of accessory muscles Auscultation: clear to auscultation bilaterally Cardio: Rate: regular rate GI: Inspection: No distended Palpation (GI): Soft to palpation Extrem: Other: b/l lower extremity contractures Objective Data Active Medications Acetaminophen (Acetaminophen 325 Mg Tablet) 650 mg PO Q6H PRN PRN Reason: Pain, Mild (Pain Scale 1-3) Acetaminophen (Acetaminophen Supp 650 Mg Supp.Rect) 650 mg DE Q6H PRN PRN Reason: Pain, Mild (Pain Scale 1-3) Last Admin: 09/02/23 07:30 Dose: 650 mg Documented By: CAPRI Baclofen (Baclofen 10 Mg Tablet) 10 mg PO DAILY [facility] Docusate Sodium (Docusate Sodium 100 Mg Capsule) 100 mg PO BID PRN PRN Reason: Constipation Enoxaparin Sodium (Enoxaparin Sodium 40 Mg/0.4 Ml Syringe) 40 mg SUBCUT Q24H [facility] Last Admin: 09/01/23 23:46 Dose: 40 mg Documented By: WILLIAM Escitalopram Oxalate (Escitalopram Oxalate 10 Mg Tablet) 10 mg PO DAILY [facility] Folic Acid (Folic Acid 1 Mg Tablet) 1 mg PO DAILY [facility] Piperacillin Sod/Tazobactam (Sod 4.5 gm/ Sodium Chloride) 100 mls @ 200 mls/hr IV Q6H [facility] Last Infusion: 09/02/23 07:16 Dose: Infused Documented By: CAPRI Vancomycin HCl 750 mg/ Sodium (Chloride) 265 mls @ 265 mls/hr IV Q12H [facility] Last Admin: 09/02/23 11:12 Dose: 265 mls/hr Documented By: CAPRI Levothyroxine Sodium (Levothyroxine Sodium 100 Mcg Tablet) 100 mcg PO DAILY@0600 [facility] Melatonin (Melatonin 3 Mg Tablet) 6 mg PO BEDTIME PRN PRN Reason: Insomnia Ondansetron HCl (Ondansetron Hcl 4 Mg/2 Ml Vial) 4 mg IVPUSH Q8H PRN PRN Reason: Nausea and Vomiting Pharmacy Consult (Consult Rx Vancomycin Dosing) 1 each MISCELLANE DAILY PRN PRN Reason: Consult order Polyethylene Glycol (Polyethylene Glycol 3350 17 Gm Powd.Pack) 17 gm PO DAILY PRN PRN Reason: Constipation Sodium Chloride (0.9 % Sodium Chloride Flush 3 Ml Syringe) 3 ml IVFLUSH QSHIFT [facility] Last Admin: 09/02/23 07:30 Dose: 3 ml Documented By: CPARI Labs 09/02/23 06:03 09/02/23 06:03 Labs: Laboratory Results - last 24 hr 09/01/23 09/01/23 09/01/23 14:53 15:08 15:13 MCV 91.2 MCH 29.5 MCHC 32.3 RDW 15.3 Plt Count 359 MPV 10.5 Immature Gran % (Auto) 0.5 H Neut % (Auto) 78.6 H Lymph % (Auto) 12.3 L [place] % (Auto) 8.0 Eos % (Auto) 0.2 Baso % (Auto) 0.4 Lymph # (Auto) 1.6 Coles # (Auto) 1.1 Eos # (Auto) 0.0 Baso # (Auto) 0.1 Abs Immat Gran (auto) 0.07 H Absolute Neuts (auto) 10.5 H Absolute Nucleated RBC 0.000 Nucleated RBC % (auto) 0.0 PT 13.0 INR 1.1 APTT 30.1 VBG pH 7.43 VBG pCO2 45 VBG pO2 43 VBG HCO3 30 H VBG O2 Saturation 66.0 VBG Base Excess 5.4 Anion Gap 16 Estim Creat Clear Calc 86.9 Estimated GFR > 60 Random Glucose 95 Lactic Acid 1.4 Calcium 10.5 H Magnesium 1.9 Total Bilirubin 0.4 Direct Bilirubin 0.1 AST 27 ALT 30 Alkaline Phosphatase 115 Total Protein 7.5 Albumin 3.6 Urine Color Urine Appearance Urine pH Ur Specific [place] Urine Protein Urine Glucose (UA) Urine Ketones Urine Blood Urine Nitrite Ur Leukocyte Esterase Urine RBC Urine WBC Ur Squamous Epith Cells Urine Bacteria Hyaline Casts COVID-19 (BOB) COVID-19 Clin Com Influenza Type A (PCR) Influenza Type B (PCR) RSV RNA Qual (PCR) SARS-CoV-2 RNA (RT-PCR) 09/01/23 09/01/23 09/01/23 16:04 16:19 19:29 MCV Cancelled MCH Cancelled MCHC Cancelled RDW Cancelled Plt Count Cancelled MPV Cancelled Immature Gran % (Auto) Cancelled Neut % (Auto) Cancelled Lymph % (Auto) Cancelled Coles % (Auto) Cancelled Eos % (Auto) Cancelled Baso % (Auto) Cancelled Lymph # (Auto) Cancelled Coles # (Auto) Cancelled Eos # (Auto) Cancelled Baso # (Auto) Cancelled Abs Immat Gran (auto) Cancelled Absolute Neuts (auto) Cancelled Absolute Nucleated RBC Cancelled Nucleated RBC % (auto) Cancelled PT INR APTT VBG pH VBG pCO2 VBG pO2 VBG HCO3 VBG O2 Saturation VBG Base Excess Anion Gap Estim Creat Clear Calc Estimated GFR Random Glucose Lactic Acid Calcium Magnesium Total Bilirubin Direct Bilirubin AST ALT Alkaline Phosphatase Total Protein Albumin Urine Color Yellow Urine Appearance Clear Urine pH 6.5 Ur Specific [place] 1.020 Urine Protein Trace Urine Glucose (UA) Negative Urine Ketones Negative Urine Blood Moderate (2+) H Urine Nitrite Positive H Ur Leukocyte Esterase Negative Urine RBC 11-20 H Urine WBC 0-5 Ur Squamous Epith Cells 11-20 Urine Bacteria Trace Hyaline Casts 3-5 COVID-19 (BOB) Negative COVID-19 Clin Com See Note Influenza Type A (PCR) NEGATIVE Influenza Type B (PCR) NEGATIVE RSV RNA Qual (PCR) NEGATIVE SARS-CoV-2 RNA (RT-PCR) NEGATIVE 09/02/23 06:03 MCV 90.2 MCH 29.2 MCHC 32.4 RDW 15.3 Plt Count 317 MPV 10.0 Immature Gran % (Auto) 0.4 Neut % (Auto) 84.0 H Lymph % (Auto) 9.1 L Coles % (Auto) 5.9 Eos % (Auto) 0.2 Baso % (Auto) 0.4 Lymph # (Auto) 1.3 Coles # (Auto) 0.8 Eos # (Auto) 0.0 Baso # (Auto) 0.1 Abs Immat Gran (auto) 0.06 H Absolute Neuts (auto) 11.8 H Absolute Nucleated RBC 0.000 Nucleated RBC % (auto) 0.0 PT INR APTT VBG pH VBG pCO2 VBG pO2 VBG HCO3 VBG O2 Saturation VBG Base Excess Anion Gap 13 Estim Creat Clear Calc 88.6 Estimated GFR > 60 Random Glucose 85 Lactic Acid Calcium 10.0 Magnesium Total Bilirubin Direct Bilirubin AST ALT Alkaline Phosphatase Total Protein Albumin Urine Color Urine Appearance Urine pH Ur Specific [place] Urine Protein Urine Glucose (UA) Urine Ketones Urine Blood Urine Nitrite Ur Leukocyte Esterase Urine RBC Urine WBC Ur Squamous Epith Cells Urine Bacteria Hyaline Casts COVID-19 (BOB) COVID-19 Clin Com Influenza Type A (PCR) Influenza Type B (PCR) RSV RNA Qual (PCR) SARS-CoV-2 RNA (RT-PCR) Assessment and Plan (1) Fever: Status: Acute Plan This is a 58-year-old female with history of hypothyroidism, advanced dementia minimally verbal at baseline, mood disorder, complete heart block status post ppm, history of MRSA and osteomyelitis of the right hip who was sent to the ER for evaluation of fevers. Sepsis possibly due to pneumonia vs UTI vs infected hip Imaging with fistulous track extending to right hip joint space and large complex joint effusion - h/o right iliac abscess, MRSA/chronic septic arthritis and chronic osteo of right hip-imaging looks similar to previous. seen by ortho, no acute intervention required from their perspective CTA showing b/l lower lobe consolidation less likely to be infiltrate possible UTI (pt has history of colovaginal fistula) - follow urine cultures covid 19, flu, RSV negative follow blood cultures continue IV vancomycin and zosyn for now ID consult pending chronic constipation continue bowel regimen Hypothyroidism coninue Synthroid Dementia Maintain sleep-wake cycle Sacral decubitus ulcer local Wound Care, Frequent change in position DVT prophylaxis: Lovenox DNR/DNI. Confirmed with at bedside. Hospice previously discussed with him, he is not agreeable as he does not want to stop her baseline medications and does not want to give up on her stating that she does well at home attending: Dr. Eckert Requires ongoing inpatient stay for management of fever, IV antibiotics Time Spent With Patient Time: Total time managing care of this patient today ____ minutes. Quality Stroke Does the patient have a stroke diagnosis?: No VTE Prior VTE?: No VTE Risk Level:: Medical - moderate - high VTE Device Contraindication: Treatment Not Indicated VTE Drug Contraindication: N/A - Med Ordered
--- NOTE | 2023-09-02 12:56 | MHC.SL.SWA ---
Speech Pathologist Impression: Risk of Aspiration Due to: Neurological Condition Dysphasia Diet Status: Recommend UPGRADE liquids to THIN, continue on PUREE (NDD!) Pills crushed in puree. Liquid Consistency and Strategies for Safe Swallow: Liquid Intake Recommendation: Thin Liquid Intake Strategies: Small Sips Solid Food Consistency: Dietary Recommendations: Pureed (NDD1) Additional Modifications to Solid Foods: Recommend controlled cup sip or controlled straw sip for liquids. Discontinue if any signs of aspiration (coughing, throat clearing, wet voice after swallow). Patient must be positioned well when eating or drinking. Oral Medication Intake: Crushed with Puree Please contact the pharmacy regarding appropriate crushable or liquid drug formulations that are available whenever modified delivery is recommended. Compensatory Strategies and Precautions to be Taken for Safe Swallow: Sitting Upright (90 deg) Small Bites and Sips Alternate Liquids/Solids Rate of Ingestion Change Supervision While Eating and Drinking for Safe Swallow: Total Assistance (1:1) Swallowing Recommended Treatments: Compens. Strategy Educat. Recommendation for Speech: Inpatient Speech Therapy Comment: Recommend Puree Solids (NDD1) and Thin Liquids. Medications Crushed in Puree. Pt requires 1:1 assistance with feeding. [employer] will follow-up x1-2 to ensure tolerance and feeding recommendation compliance. Tiller Man Clinican/Clinical Fellow: No Supervisory Statement: I have reviewed and agree with the student/clinical fellow's documentation: N/A Speech Language Pathologist: Dwayne Albarran M.A., [facility]
--- NOTE | 2023-09-02 14:29 | PC.NURSE ---
Pt given soap suds enema per order with good results .
[2023-09-02] MEDS: Enoxaparin Sodium 40 MG/0.4 ML SYRINGE SUBCUT (21:22)
--- NOTE | 2023-09-02 22:44 | P.CNID_ITS ---
History of Present Illness Data of Consult Service Date: 09/02/23 Requesting physician: Priya Clayton Primary Care Provider: Marry Campuzano MD HPI Reason for consult: fever of unknown origin She presents with fever to 103 and apparently no specific symptoms. There are no cultures positive at this time. She has no open area right hip at this time but prior septic arthritis MRSA. Review of Systems 2 Review of Systems: Yes all other systems are reviewed and are negative PMFSH Past Medical History Medical History Protein malnutrition Decubitus ulcer, unstageable with infection Colovaginal fistula Shortness of breath Rash Elevated LFTs Dementia Osteomyelitis of right hip Pressure injury of ankle, unstageable Pressure injury of sacral region, stage 3 Unspecified open wound, right hip, initial encounter Dementia Leukocytosis (leucocytosis) Fever Preoperative cardiovascular examination Pre-op evaluation Dislocation, hip closed History of pacemaker Hip dislocation, right Closed dislocation of right hip Visit for wound check Pacemaker Symptomatic bradycardia Syncope Sinus pause Abnormal EKG Displaced fracture of right femoral neck Closed hip fracture Urinary incontinence Balance disorder Left leg weakness Dementia Memory loss PTSD (post-traumatic stress disorder) Tobacco dependence Lactose intolerance Hypothyroidism Abnormal urine odor Family History Family History Mother Unknown family medical history Father Unknown family medical history Family history: reviewed and not pertinent Surgical History Surgical History S/P [place] procedure History of hemiarthroplasty of right hip Hx of total hip arthroplasty Status post hip hemiarthroplasty No pertinent past surgical history Social History Social History Household Members: Spouse Housing: Apartment Housing [facility] Do you presently have visiting nurse or other home services: Yes Unable to assess alcohol history related to: Unable to respond Alcohol intake: never Patient Tobacco Use Status: Former Tobacco user Tobacco use type: Cigarette Cigarettes Per Day: 5.0 Years Smoked: since teen years per pt e-Cigarette/Vaping Use: Never Used Second Hand Smoke Exposure: No Substance Use Type: Marijuana Advance Directives Date on File: 06/06/23 service: No Current occupational status: disabled Current occupation: rt handed Cognitive needs: Yes Hearing needs: No Vision needs: Yes Meds Allergies Allergy/AdvReac Type Severity Reaction Status Date / Time Tunas nut Allergy Unknown Verified 09/02/23 00:56 lactose Allergy Diarrhea Verified 09/02/23 00:56 Active Medications: Current Medications Acetaminophen (Acetaminophen 325 Mg Tablet) 650 mg PO Q6H PRN PRN Reason: Pain, Mild (Pain Scale 1-3) Acetaminophen (Acetaminophen Supp 650 Mg Supp.Rect) 650 mg DE Q6H PRN PRN Reason: Pain, Mild (Pain Scale 1-3) Last Admin: 09/02/23 18:58 Dose: 650 mg Baclofen (Baclofen 10 Mg Tablet) 10 mg PO DAILY [facility] Docusate Sodium (Docusate Sodium 100 Mg Capsule) 100 mg PO BID [facility] Last Admin: 09/02/23 21:34 Dose: Not Given Enoxaparin Sodium (Enoxaparin Sodium 40 Mg/0.4 Ml Syringe) 40 mg SUBCUT Q24H [facility] Last Admin: 09/02/23 21:22 Dose: 40 mg Escitalopram Oxalate (Escitalopram Oxalate 10 Mg Tablet) 10 mg PO DAILY [facility] Folic Acid (Folic Acid 1 Mg Tablet) 1 mg PO DAILY [facility] Piperacillin Sod/Tazobactam (Sod 4.5 gm/ Sodium Chloride) 100 mls @ 200 mls/hr IV Q6H [facility] Last Infusion: 09/02/23 18:08 Dose: Infused Vancomycin HCl 750 mg/ Sodium (Chloride) 265 mls @ 265 mls/hr IV Q12H [facility] Last Infusion: 09/02/23 13:15 Dose: Infused Levothyroxine Sodium (Levothyroxine Sodium 100 Mcg Tablet) 100 mcg PO DAILY@0600 [facility] Lidocaine (Lidocaine 4 % Patch Adh..Patch) 1 patch TRANSDERMA DAILY PRN; Protocol PRN Reason: Pain, Mild (Pain Scale 1-3) Melatonin (Melatonin 3 Mg Tablet) 6 mg PO BEDTIME PRN PRN Reason: Insomnia Ondansetron HCl (Ondansetron Hcl 4 Mg/2 Ml Vial) 4 mg IVPUSH Q8H PRN PRN Reason: Nausea and Vomiting Pharmacy Consult (Consult Rx Vancomycin Dosing) 1 each MISCELLANE DAILY PRN PRN Reason: Consult order Polyethylene Glycol (Polyethylene Glycol 3350 17 Gm Powd.Pack) 17 gm PO DAILY [facility] Sodium Chloride (0.9 % Sodium Chloride Flush 3 Ml Syringe) [facility] Last Admin: 09/02/23 17:36 Dose: 3 ml Home Medications Medication Instructions Recorded Confirmed Last Taken Type cholecalciferol (vitamin D3) 25 25 mcg PO Q OTHER DAY 06/19/23 09/02/23 09/01/23 History mcg (1,000 unit) capsule cyanocobalamin (vitamin B-12) 1,000 mcg PO Q OTHER DAY 06/19/23 09/02/23 09/01/23 History 1,000 mcg tablet docusate sodium 100 mg capsule 100 mg PO BID PRN Constipation 06/19/23 09/02/23 Unknown History lidocaine 4 % topical patch 1 patch topical DAILY PRN pain 06/19/23 09/02/23 09/01/23 History multivitamin 1 tab PO Q OTHER DAY 06/19/23 09/02/23 08/31/23 History polyethylene glycol 3350 17 gram 17 g PO DAILY PRN Constipation 06/19/23 09/02/23 09/01/23 History oral powder packet (Miralax) gabapentin 100 mg capsule 200 mg PO DAILY 09/02/23 09/02/23 09/01/23 History Physical Exam 2 Vital Signs: Vital Signs: Last Vital Signs Temp 101 F H 09/02/23 19:31 Pulse 110 H 09/02/23 19:31 Resp 14 09/02/23 19:31 BP 112/53 L 09/02/23 19:31 Pulse Ox 95 09/02/23 19:31 O2 Del Method Room Air 09/02/23 19:31 BMI result Body Mass Index 19.2 Const: General: cooperative HEENT: Head: Yes normal to inspection Face and sinus: Yes normal facial exam Mouth: Normal oral and palatal mucosa present Teeth and gingiva: d entition normal Eyes: General: appearance normal, both eyes and all related structures P upils: Equal, round and reactive pupils present Resp: Effort & Inspection: normal respiratory effort Cardio: Rate: regular rate Rhythm: regular rhythm GI: Palpation (GI): Soft to palpation and nontender : General: Yes no CVA tenderness Back/Spine/Pelvis: Back: no CVA tenderness Skin: General skin exam: no rashes or lesions noted Neuro: General: moves all extremities Cranial nerves: Yes Equal, round and reactive pupils present Extrem: General: Yes normal to inspection Psych: Other: chronically confused Results Labs 09/02/23 06:03 09/02/23 06:03 Labs: Short CBC 09/02/23 Range/Units 06:03 WBC 14.1 H (4.8-10.8) X10*3/uL Hgb 11.3 L (12.0-16.0) g/dl Hct 34.9 L (37.0-47.0) % Plt Count 317 (160-400) X10*3/uL BMP 09/02/23 06:03 Sodium 136 Potassium 3.5 Chloride 106 Carbon Dioxide 21 L BUN 8 L Creatinine 0.52 Calcium 10.0 Microbiology Microbiology Results: Microbiology 09/01/23 16:04 Blood - Venous Blood Culture - Preliminary No growth after 24 hours. 09/01/23 15:08 Blood - Venous Blood Culture - Preliminary No growth after 24 hours. 09/01/23 19:46 Urine clean catch - Urine lubin top Urine Culture - Preliminary No growth to date. Assessment and Plan (1) Fever: Status: Acute She has chronic septic arthritis but not red leg area and area looks chronic on XRay. She may have viral infection . There are no new medications. Plan Continue Vancomycin and Zosyn now and stop if blood cultures negative. Orthopedics to evaluate area before stop antibiotic though. Time Spent With Patient Time: Total time managing care of this patient today ____ minutes.
[2023-09-03] MEDS: Piperacillin Sodium/Tazobactam 4.5 GM in 0.9 % Sodium Chloride 100 ML IV ×5 (00:56→23:57)
[2023-09-03] MEDS: 0.9 % Sodium Chloride Flush 3 ML SYRINGE IVFLUSH ×3 (00:56→17:24)
[2023-09-03] MEDS: vancomycin HCL 750 MG in 0.9 % Sodium Chloride 250 ML 265 MG IV ×2 (00:57→11:56)
[2023-09-03] MEDS: Levothyroxine Sodium 100 MCG TABLET PO (06:24)
[2023-09-03 06:56] LABS: Anion Gap 14 (12-20); Blood Urea Nitrogen 10 mg/dL (9-16); Calcium 10.3 mg/dL (8.4-10.2); Carbon Dioxide 22 mmol/L (22-29); Chloride 108 mmol/L (96-108); Creatinine Clr Calc Pharmacy 85.3; Estimated Glomerular Filt Rate > 60; Glucose Random 88 mg/dL (60-115); Sodium 141 mmol/L (135-145)
[2023-09-03 07:01] VITALS: BP 105/56; PULSE 98; RESP 16; TEMP 37.1; O2SAT 94
[2023-09-03 07:17] LABS: Hematocrit 34.2 % (37.0-47.0); Mean Corpuscular HGB Conc 32.2 g/dl (31.0-35.0); Mean Corpuscular Hemoglobin 29.2 pg (27.0-33.0); Mean Corpuscular Volume 90.7 fL (80.0-98.0); Mean Platelet Volume 10.8 fL (9.4-12.3); Platelet Count 377 X10*3/uL (160-400); Red Blood Count 3.77 X10*6/uL (4.20-5.50); Red Cell Distribution Width 14.8 % (11.0-16.0); White Blood Count 13.4 X10*3/uL (4.8-10.8)
[2023-09-03] MEDS: Baclofen 10 MG TABLET PO (09:00)
[2023-09-03] MEDS: Docusate Sodium 100 MG CAPSULE PO ×2 (09:00→20:08)
[2023-09-03] MEDS: polyethylene glycoL 3350 17 GM POWD.PACK PO (09:00)
[2023-09-03] MEDS: Folic Acid 1 MG TABLET PO (09:01)
[2023-09-03] MEDS: Escitalopram Oxalate 10 MG TABLET PO (09:01)
[2023-09-03] MEDS: Acetaminophen 325 MG TABLET 650 MG PO ×2 (09:26→17:35)
[2023-09-03] MEDS: Potassium Chloride Packet 20 MEQ PACKET 40 MEQ PO (09:27)
[2023-09-03 09:46] LABS: Adenovirus PCR Not Detected (Not Detect.); Bordetella parapertussis PCR Not Detected (Not Detect.); Bordetella pertussis PCR Not Detected (Not Detect.); Chlamydia pneumoniae PCR Not Detected (Not Detect.); Coronavirus 229E PCR Not Detected (Not Detect.); Coronavirus HKU1 PCR Not Detected (Not Detect.); Coronavirus NL63 PCR Not Detected (Not Detect.); Coronavirus OC43 PCR Not Detected (Not Detect.); Human metapneumovirus PCR Not Detected (Not Detect.); Influenza A PCR Not Detected (Not Detect.); Influenza B PCR Not Detected (Not Detect.); Mycoplasma pneumoniae PCR Not Detected (Not Detect.); Parainfluenza 1 PCR Not Detected (Not Detect.); Parainfluenza 2 PCR Not Detected (Not Detect.); Parainfluenza 3 PCR Not Detected (Not Detect.); Parainfluenza 4 PCR Not Detected (Not Detect.); RSV PCR Not Detected (Not Detect.); Rhino/Enterovirus PCR Not Detected (Not Detect.)
[2023-09-03 10:10] LABS: SARS-CoV-2 PCR Not Detected (Not Detect.)
[2023-09-03 10:34] LABS: Vancomycin Trough 13.9 mcg/mL (10.0-20.0)
--- NOTE | 2023-09-03 11:41 | HE.PHANOTE ---
vanco level 13.9, cont same dose, auc ~463
--- NOTE | 2023-09-03 14:11 | P.PNIM_ITS ---
Subjective Subjective Date of Service: 09/03/23 Interval History: (pneumonia vs uti) follow up for fever history obtained from at bedside -pt. doesn't talk much at baseline. has some knee soraness but improving. denies shortness of breath Review of Systems denies any chest pain or sob or abd pain or fever or chills Physical Exam 2 Vital Signs: Vital Signs: Last Vital Signs Temp 98.7 F 09/03/23 07:01 Pulse 98 09/03/23 07:01 Resp 16 09/03/23 07:01 BP 105/56 L 09/03/23 07:01 Pulse Ox 94 09/03/23 07:01 O2 Del Method Room Air 09/03/23 07:01 BMI result Body Mass Index 19.2 Constitutional - Awake and Alert, No apparent distress Eyes - PERRLA, EOMI Cardiovascular - S1S2, RRR, No edema Respiratory - Normal lung expansion, Normal respiratory effort, No respiratory distress, CTA bilaterally Gastrointestinal - NT , but rigid, ND; +BS; No rebound or guarding Extremities - no calf tenderness bilaterally, no swelling Skin - Warm/Dry. Tunneling subcentimeter wound of sacrum with packing in place with purulent drainage. Right hip with tunneling sub centimeter wound with packing in place with purulent drainage. No surrounding erythema or wamrth Neurological - Alert & oriented x3 Psychological - Appropriate affect Objective Data Active Medications Acetaminophen (Acetaminophen 325 Mg Tablet) 650 mg PO Q6H PRN PRN Reason: Pain, Mild (Pain Scale 1-3) Last Admin: 09/03/23 09:26 Dose: 650 mg Documented By: GLENROY Acetaminophen (Acetaminophen Supp 650 Mg Supp.Rect) 650 mg PA Q6H PRN PRN Reason: Pain, Mild (Pain Scale 1-3) Last Admin: 09/02/23 18:58 Dose: 650 mg Documented By: CAPRI Baclofen (Baclofen 10 Mg Tablet) 10 mg PO DAILY [facility] Last Admin: 09/03/23 09:00 Dose: 10 mg Documented By: GLENROY Docusate Sodium (Docusate Sodium 100 Mg Capsule) 100 mg PO BID [facility] Last Admin: 09/03/23 09:00 Dose: 100 mg Documented By: GLENROY Enoxaparin Sodium (Enoxaparin Sodium 40 Mg/0.4 Ml Syringe) 40 mg SUBCUT Q24H [facility] Last Admin: 09/02/23 21:22 Dose: 40 mg Documented By: YADI Escitalopram Oxalate (Escitalopram Oxalate 10 Mg Tablet) 10 mg PO DAILY [facility] Last Admin: 09/03/23 09:01 Dose: 10 mg Documented By: GLENROY Folic Acid (Folic Acid 1 Mg Tablet) 1 mg PO DAILY [facility] Last Admin: 09/03/23 09:01 Dose: 1 mg Documented By: GLENROY Piperacillin Sod/Tazobactam (Sod 4.5 gm/ Sodium Chloride) 100 mls @ 200 mls/hr IV Q6H [facility] Last Infusion: 09/03/23 12:00 Dose: Infused Documented By: GLENROY Vancomycin HCl 750 mg/ Sodium (Chloride) 265 mls @ 265 mls/hr IV Q12H [facility] Last Infusion: 09/03/23 13:19 Dose: Infused Documented By: GLENROY Levothyroxine Sodium (Levothyroxine Sodium 100 Mcg Tablet) 100 mcg PO DAILY@0600 [facility] Last Admin: 09/03/23 06:24 Dose: 100 mcg Documented By: YADI Lidocaine (Lidocaine 4 % Patch Adh..Patch) 1 patch TRANSDERMA DAILY PRN; Protocol PRN Reason: Pain, Mild (Pain Scale 1-3) Melatonin (Melatonin 3 Mg Tablet) 6 mg PO BEDTIME PRN PRN Reason: Insomnia Ondansetron HCl (Ondansetron Hcl 4 Mg/2 Ml Vial) 4 mg IVPUSH Q8H PRN PRN Reason: Nausea and Vomiting Pharmacy Consult (Consult Rx Vancomycin Dosing) 1 each MISCELLANE DAILY PRN PRN Reason: Consult order Polyethylene Glycol (Polyethylene Glycol 3350 17 Gm Powd.Pack) 17 gm PO DAILY [facility] Last Admin: 09/03/23 09:00 Dose: 17 gm Documented By: GLENROY Sodium Chloride (0.9 % Sodium Chloride Flush 3 Ml Syringe) 3 ml IVFLUSH QSHIFT [facility] Last Admin: 09/03/23 09:01 Dose: 3 ml Documented By: GLENROY Labs 09/03/23 06:17 09/03/23 06:17 Labs: Laboratory Results - last 24 hr 09/02/23 09/03/23 09/03/23 15:05 06:17 09:51 MCV 90.7 MCH 29.2 MCHC 32.2 RDW 14.8 Plt Count 377 MPV 10.8 Absolute Nucleated RBC 0.000 Nucleated RBC % (auto) 0.0 Anion Gap 14 Estim Creat Clear Calc 85.3 Estimated GFR > 60 Random Glucose 88 Calcium 10.3 H Vancomycin Trough 13.9 Respiratory Panel Torres See Note Adenovirus (Rapid PCR) Not Detected B.pert (TEM-PCR) Not Detected B.parapertussis DNA PCR Not Detected C. pneumoniae DNA (PCR) Not Detected Coronavirus OC43 (PCR) Not Detected Coronavirus HKU1 (PCR) Not Detected Coronavirus 229E (PCR) Not Detected Coronavirus NL63 (PCR) Not Detected Human Metapneumovir PCR Not Detected Influenza A (RT-PCR) Not Detected Influenza B (RT-PCR) Not Detected M. pneumoniae (PCR) Not Detected Parainfluenza 1 (PCR) Not Detected Parainfluenza 2 (PCR) Not Detected Parainfluenza 3 (PCR) Not Detected Parainfluenza 4 (PCR) Not Detected RSV (PCR) Not Detected Entero/Rhino (PCR) Not Detected SARS-CoV-2 RNA (RT-PCR) Not Detected Microbiology Microbiology Results: Microbiology 09/01/23 19:46 Urine Culture - Final Urine clean catch - Urine lubin top 09/01/23 16:04 Blood Culture - Preliminary Blood - Venous No growth after 24 hours. 09/01/23 15:08 Blood Culture - Preliminary Blood - Venous No growth after 24 hours. Assessment and Plan (1) UTI (urinary tract infection): Status: Acute Plan 58-year-old female with history of hypothyroidism, advanced dementia minimally verbal at baseline, mood disorder, complete heart block status post ppm, history of MRSA and osteomyelitis of the right hip who was sent to the ER for evaluation of fevers. Sepsis possibly due to pneumonia vs UTI vs infected hip Imaging with fistulous track extending to right hip joint space and large complex joint effusion - h/o right iliac abscess, MRSA/chronic septic arthritis and chronic osteo of right hip-imaging looks similar to previous. seen by ortho, no acute intervention required from their perspective CTA showing b/l lower lobe consolidation less likely to be infiltrate possible UTI (pt has history of colovaginal fistula) - follow urine cultures covid 19, flu, RSV negative follow blood cultures continue IV vancomycin and zosyn for now ID consult- Continue Vancomycin and Zosyn now and stop if blood cultures negative. chronic constipation continue bowel regimen Hypothyroidism coninue Synthroid Dementia Maintain sleep-wake cycle Sacral decubitus ulcer local Wound Care, Frequent change in position DVT prophylaxis: Lovenox DNR/DNI. Requires ongoing inpatient stay for management of fever, IV antibiotics Time Spent With Patient Time: Total time managing care of this patient today ____ minutes. Quality Stroke Does the patient have a stroke diagnosis?: No VTE Prior VTE?: No VTE Risk Level:: Medical - moderate - high VTE Device Contraindication: Treatment Not Indicated VTE Drug Contraindication: N/A - Med Ordered
[2023-09-03 15:08] VITALS: BP 121/63; PULSE 88; RESP 18; TEMP 36.8; O2SAT 95
[2023-09-03] MEDS: Enoxaparin Sodium 40 MG/0.4 ML SYRINGE SUBCUT (22:57)
[2023-09-03 23:56] VITALS: BP 114/55; PULSE 97; RESP 17; TEMP 36.1; O2SAT 94
[2023-09-04] MEDS: 0.9 % Sodium Chloride Flush 3 ML SYRINGE IVFLUSH ×2 (00:03→08:32)
[2023-09-04] MEDS: vancomycin HCL 750 MG in 0.9 % Sodium Chloride 250 ML 265 MG IV ×2 (00:34→10:52)
[2023-09-04] MEDS: Piperacillin Sodium/Tazobactam 4.5 GM in 0.9 % Sodium Chloride 100 ML IV (05:47)
[2023-09-04] MEDS: Levothyroxine Sodium 100 MCG TABLET PO (06:25)
[2023-09-04 07:48] VITALS: BP 132/73; PULSE 83; RESP 12; TEMP 37.2; O2SAT 95
[2023-09-04] MEDS: Baclofen 10 MG TABLET PO (08:32)
[2023-09-04] MEDS: Escitalopram Oxalate 10 MG TABLET PO (08:32)
[2023-09-04] MEDS: Folic Acid 1 MG TABLET PO (08:32)
[2023-09-04] MEDS: Docusate Sodium 100 MG CAPSULE PO (08:32)
[2023-09-04] MEDS: polyethylene glycoL 3350 17 GM POWD.PACK PO (08:32)
[2023-09-04 09:53] VITALS: BMI 19.2
--- NOTE | 2023-09-04 10:05 | MHC.CLN ---
NUTRITION DIET=PUREE. ADDING ENSURE MAX PROTEIN TID TO PROMOTE WOUND HEALING AND NUTRITIONAL STATUS. PROVIDES 450 KCALS, 90 G PROTEIN. QUALIFIES NON SEVERE MALNUTRITION IN THE CONTEXT OF CHRONIC ILLNESS. SIGNIFICANT WEIGHT LOSS X 10 MONTHS. MILD DEPLETION OF BODY FAT AND MUSCLE MASS NOTED. PRESENT AT VISIT. ATE 100% THIS BREAKFAST. TAKES NUTRITIONAL SUPPLEMENT AT HOME. FOLLOW FOR DIET TOLERANCE, INTAKE AND SKIN INTEGRITY. SEE CLINICAL NUTRITION ASSESSMENT 09/04/23.
[2023-09-04] MEDS: Acetaminophen 325 MG TABLET 650 MG PO (10:43)
--- NOTE | 2023-09-04 11:41 | PM.DS ---
DS: Providers Provider Date of Service: 09/04/23 Date of admission: 09/01/23 21:58 Date of discharge: 09/04/23 Primary care physician: Marry Campuzano MD Consults: 09/02/23 01:55 Consult to Orthopedics Routine Consulting Provider: [facility] [place] Orthopedic Surgeons Reason for consultation: Septic arthritis 09/02/23 10:19 Consult to Infectious Diseases Routine Consulting Provider: [facility] [place] Infectious Disease Reason for consultation: fever, ? septic arthritis Attending physician on discharge: Parisa Harrell Discharging clinician: Parisa Harrell DS: Diagnosis Discharge Diagnosis (1) UTI (urinary tract infection): Status: Acute DS: Summary Hospital Course Hospital Course: 58-year-old female with history of hypothyroidism, advanced dementia minimally verbal at baseline, mood disorder, complete heart block status post ppm, history of MRSA and osteomyelitis of the right hip who was sent to the ER for evaluation of fevers. Unable to obtain history from the patient. History obtained from ER provider and chart review. As per the patient's , she was noted to have fever and was sent to the ER for further evaluation. He confirms that patient is DNR/DNI. He is the caregiver of the patient and does report cough. In the emergency department, patient was found to be septic and imaging with bilateral consolidation and fistulous track extending to right hip joint space with large complex joint effusion. Hospital course: Patient was initially admitted due to fever-thought to be sepsis( UTI VS Pneumonia ): Patient was started on broad-spectrum antibiotics, blood cultures sent. Subsequently blood cultures came to be negative, urine culture also mixed, CT chest was done-seems most likely atelectasis than pneumonia, patient unable to tell any urinary complaints. Patient received 3 days of antibiotics already. She has chronic septic arthritis but not red leg area and area looks chronic on XRay. will add po ceftin 500 mg for 4 more days . Patient was seen by infectious disease and ortho: Ortho recommended no acute intervention, id recommended to stop antibiotics since blood cultures also negative.cotninue incentive spirometry,deep breathing exercises. hypokalemia repleted yesterday ,po replacements ordered upon discharge -follow up [facility] outpatient. correction - decubitus ulcer to coccyx. does not appear infected, advised for frequent turning and wound care-barrier cream . patient also seen by speech and swallow - pureed diet (pt baseline) possible moderate malnutrition:continue Ensure Max outpatient (D/w her ). Patient follow-up out patiently with [facility]. Due to wants dementia, comorbidities as well as poor functional status- is considering hospice out patiently. He said he will discuss with outpatient provider. ofelia bmp in 1 week for hypokalemia . plan: complete po ceftin 500 mg po bid for 4 more days. ofelia lft's outpatient -further workup outpatient. follow up outpatient. Assessment and plan coordination time spent 50 minute. Time Spent with Patient Time attestation: Total time managing care of this patient today ____ minutes. Discharge coordination time: Greater than 30 minutes Quality: Safe Use of Opioids Does Pt have an Active Cancer Diagnosis on the Problem List?: No Quality: Stroke Does the patient have a stroke diagnosis?: No Physical Exam Vital Signs: Vital Signs: Last Vital Signs Temp 99.0 F 09/04/23 07:48 Pulse 83 09/04/23 07:48 Resp 12 09/04/23 07:48 BP 132/73 09/04/23 07:48 Pulse Ox 95 09/04/23 07:48 O2 Del Method Room Air 09/04/23 07:48 BMI result Body Mass Index 19.2 Appearance: awake ,does not say much , as per at bedside -at her baseline. cvs: rrr, [id number] . res: clear to auscultation ,no rhonchii or wheezing abd: no rebound or guarding ,nt, bs present. ext pulses present , no cyanosis. skin-decubitus coccyx improving. neuro: axo3 , nonfocal. DS: Data Data Completed and Pending Completed studies during hospitalization [Text1]: Procedures Drainage of Right Upper Leg Muscle, Percutaneous Approach (06/19/23) Insertion of Infusion Device into Superior Vena Cava, Percutaneous Approach (06/19/23) Insertion of Pacemaker Lead into Right Atrium, Percutaneous Approach (06/09/21) Insertion of Pacemaker Lead into Right Ventricle, Percutaneous Approach (06/09/21) Insertion of Pacemaker, Dual Chamber into Chest Subcutaneous Tissue and Fascia, Open Approach (06/09/21) Removal of Synthetic Substitute from Right Hip Joint, Femoral Surface, Open Approach (08/03/21) Removal of Synthetic Substitute from Right Hip Joint, Open Approach (07/23/21) Replacement of Right Hip Joint with Synthetic Substitute, Uncemented, Open Approach (07/23/21) Replacement of Right Hip Joint, Femoral Surface with Synthetic Substitute, Uncemented, Open Approach (06/09/21) Revision of Synthetic Substitute in Right Hip Joint, External Approach (07/07/21) Revision of Synthetic Substitute in Right Hip Joint, Femoral Surface, Open Approach (07/20/21) Transfusion of Nonautologous Red Blood Cells into Peripheral Vein, Percutaneous Approach (08/03/21) Ultrasonography of Superior Vena Cava, Guidance (06/19/23) Labs on day of discharge: Preliminary micro results at discharge 09/01/23 16:04 Blood Culture - Preliminary Blood - Venous No growth after 48 hours. 09/01/23 15:08 Blood Culture - Preliminary Blood - Venous No growth after 48 hours. Imaging Chest x-ray: Radiologist's impression: ITS Impressions Chest X-Ray 09/01/23 15:10 IMPRESSION: 1. No acute abnormality of chest. 2. Mild diffuse interstitial lung markings similar prior chest x-ray June 03, 2023. Abdomen/Pelvis CT 09/01/23 20:11 IMPRESSION: Limited examination secondary to motion and artifacts generated by the patient's arms that overlie the upper abdomen. 1. Bibasilar subsegmental atelectasis versus early consolidation. 2. Nonspecific filling defect within a segmental branch of the right lower lobe pulmonary artery; uncertain if this represents an artifact versus a pulmonary emboli. Further evaluation with a CTA chest pulmonary emboli protocol could be obtained as clinically deemed appropriate. 3. Partially calcified mediastinal and hilar lymphadenopathy of uncertain etiology. 4. Redemonstration of a lateral wound and fistulous tract extending to the right hip joint space with redemonstration of a large, complex joint effusion with significant surrounding soft tissue thickening and stranding, not significantly changed since 06/19/2023. Pronounced bony remodeling/erosion of the femur and acetabulum with chronic superolateral subluxation of the proximal femur is unchanged. Findings are most consistent with chronic septic arthritis. 5. Compression deformities from T9 through L2 are stable compared to 06/20/2023. The compression deformity at L2 is severe with stable retropulsion. Additional age indeterminate moderate compression deformity at T8, not previously included in the [id number]. Correlate with point tenderness. 6. Moderate amount of stool burden in the colon and large fecal ball in the rectum. Correlate clinically for constipation. This critical result was discussed with Dr Lockwood at 09/01/2023 9:11 PM and it was ascertained that the content and urgency of the report was understood at the time of direct communication. Chest CT 09/01/23 20:11 IMPRESSION: Limited examination secondary to motion and artifacts generated by the patient's arms that overlie the upper abdomen. 1. Bibasilar subsegmental atelectasis versus early consolidation. 2. Nonspecific filling defect within a segmental branch of the right lower lobe pulmonary artery; uncertain if this represents an artifact versus a pulmonary emboli. Further evaluation with a CTA chest pulmonary emboli protocol could be obtained as clinically deemed appropriate. 3. Partially calcified mediastinal and hilar lymphadenopathy of uncertain etiology. 4. Redemonstration of a lateral wound and fistulous tract extending to the right hip joint space with redemonstration of a large, complex joint effusion with significant surrounding soft tissue thickening and stranding, not significantly changed since 06/19/2023. Pronounced bony remodeling/erosion of the femur and acetabulum with chronic superolateral subluxation of the proximal femur is unchanged. Findings are most consistent with chronic septic arthritis. 5. Compression deformities from T9 through L2 are stable compared to 06/20/2023. The compression deformity at L2 is severe with stable retropulsion. Additional age indeterminate moderate compression deformity at T8, not previously included in the [id number]. Correlate with point tenderness. 6. Moderate amount of stool burden in the colon and large fecal ball in the rectum. Correlate clinically for constipation. This critical result was discussed with Dr Lockwood at 09/01/2023 9:11 PM and it was ascertained that the content and urgency of the report was understood at the time of direct communication. Chest CTA 09/01/23 21:59 IMPRESSION: No evidence for pulmonary embolism. Bilateral lower lobe consolidation possibly atelectasis and less likely infiltrate. VTE: negative Discharge Plan Discharge Anticipated Discharge Date/Time: 09/04/23 11:10 Patient Disposition: Home Health Service Discharge Diagnosis: fever ,sepsis sec possible uti Referrals: [facility] [Outside] - 3-5 Days (RESUMPTION OF HOME SERVICES- A NURSE WILL CALL YOU TO SET UP POST HOSPITAL VISIT) Marry Campuzano MD [Primary Care Provider] - 1 Week Discharge Medications: New cefuroxime axetil 500 mg tablet 500 mg PO BID Qty: 8 0RF potassium chloride 10 mEq tablet extended release 10 meq PO DAILY Qty: 5 0RF Continued (DME) roho seat cushion See Rx Instructions .Route .MEDSUPPLY Qty: 1 0RF Rx Instructions: As directed (DME) powered recliner chair See Rx Instructions .Route .MEDSUPPLY Qty: 1 0RF Rx Instructions: As directed ferrous sulfate 325 mg (65 mg iron) tablet,delayed release (DR/EC) 325 mg PO DAILY Qty: 90 0RF (DME) Air mattress overlay Misc See Rx Instructions .Route Qty: 1 0RF Rx Instructions: As directed (DME) Adult disposable briefs Large See Rx Instructions .Route .MEDSUPPLY Qty: 200 6RF Rx Instructions: Pull-ups , adult disposable briefs. (DME) body wipes See Rx Instructions .Route .MEDSUPPLY Qty: 1200 3RF Rx Instructions: As directed (DME) disposable bed pads See Rx Instructions .Route .MEDSUPPLY Qty: 100 5RF Rx Instructions: As directed (DME) disposable gloves [Vinyl Gloves] Misc See Rx Instructions .Route Qty: 200 5RF Rx Instructions: As directed levothyroxine 100 mcg tablet 100 mcg PO DAILY Qty: 90 3RF baclofen 10 mg tablet 10 mg PO DAILY Qty: 90 3RF folic acid 1 mg tablet 1 mg PO DAILY Qty: 90 3RF Zyrtec 10 mg capsule 10 mg PO DAILY PRN (Reason: allergy symptoms) Qty: 90 1RF (DME) adhesive tape [[employer]] 1 X 10 -yard tape See Rx Instructions .Route Qty: 2 0RF Rx Instructions: As directed (DME) adhesive tape [[employer]] 1 X 10 -yard tape See Rx Instructions .Route Qty: 2 0RF Rx Instructions: As directed (DME) gauze bandage 4 X 4 bandage See Rx Instructions .Route Qty: 1200 0RF Rx Instructions: As directed (DME) gauze bandage 4 X 4 bandage See Rx Instructions .Route Qty: 1200 0RF Rx Instructions: As directed (DME) adhesive tape 1 X 10 -yard tape See Rx Instructions .Route Qty: 2 0RF Rx Instructions: As directed gabapentin 100 mg capsule 200 mg PO DAILY multivitamin Tablet 1 tab PO Q OTHER DAY Rx Instructions: On days not taking B12 and D3 cyanocobalamin (vitamin B-12) 1,000 mcg tablet 1,000 mcg PO Q OTHER DAY Rx Instructions: On days not taking multivitamin polyethylene glycol 3350 [Miralax] 17 gram powder in packet 17 g PO DAILY PRN (Reason: Constipation) docusate sodium 100 mg capsule 100 mg PO BID PRN (Reason: Constipation) cholecalciferol (vitamin D3) 25 mcg (1,000 unit) capsule 25 mcg PO Q OTHER DAY Rx Instructions: On days not taking multivitamin lidocaine 4 % Adhesive Patch,Medicated 1 patch TOPICAL DAILY PRN (Reason: pain) (DME) DuoDERM CGF Dressing 8 X 12 bandage See Rx Instructions .Route Qty: 5 0RF Rx Instructions: As directed escitalopram oxalate 10 mg tablet 10 mg PO DAILY Qty: 90 3RF (DME) nebulizers Misc See Rx Instructions .Route Qty: 1 0RF Rx Instructions: 1 bid gabapentin 300 mg capsule 300 mg PO BEDTIME Qty: 90 3RF (DME) gauze bandage 4 X 4 bandage See Rx Instructions .Route Qty: 1200 3RF Rx Instructions: as directed (DME) gauze bandage [Band-Aid Gauze Pads] 2 X 2 bandage See Rx Instructions .Route Qty: 2400 2RF Rx Instructions: As directed doxycycline hyclate 100 mg tablet 100 mg PO BID 30 Days Qty: 60 5RF Discharge Orders: Discharge Order (Routine); Ordered 09/04/23 Ordered By: Parisa Harrell Diet: Advance to usual diet Activity on Discharge: As tolerated Stand Alone Forms: Patient Portal Discharge page Care Plan Goals: Patient was initially admitted due to fever-thought to be sepsis( UTI VS Pneumonia ): Patient was started on broad-spectrum antibiotics, blood cultures sent. Subsequently blood cultures came to be negative, urine culture also mixed, CT chest was done-seems most likely atelectasis than pneumonia, patient unable to tell any urinary complaints. Patient received 3 days of antibiotics already. She has chronic septic arthritis but not red leg area and area looks chronic on XRay. will add po ceftin 500 mg for 4 more days . Patient was seen by infectious disease and ortho: Ortho recommended no acute intervention, id recommended to stop antibiotics since blood cultures also negative.cotninue incentive spirometry,deep breathing exercises. hypokalemia repleted yesterday ,po replacements ordered upon discharge -follow up bmp outpatient. correction - decubitus ulcer to coccyx. does not appear infected, advised for frequent turning and wound care. patient also seen by speech and swallow - pureed diet (pt baseline) possible moderate malnutrition:continue Ensure Max outpatient (D/w her ). Patient follow-up out patiently with [facility]. Due to wants dementia, comorbidities as well as poor functional status- is considering hospice out patiently. He said he will discuss with outpatient provider. moniter bmp in 1 week for hypokalemia . Health Concerns: As above. Plan of Treatment: As above. Assessment: As above.
--- NOTE | 2023-09-04 11:44 | MHC.SL.SWA ---
Speech Pathologist Impression: Risk of aspiration, oral phase dysphagia Risk of Aspiration Due to: Neurological Condition Dysphasia Diet Status: No changes Liquid Consistency and Strategies for Safe Swallow: Liquid Intake Recommendation: Thin Liquid Intake Strategies: Small Sips Solid Food Consistency: Dietary Recommendations: Pureed (NDD1) Additional Modifications to Solid Foods: Recommend CONTINUE on PUREED diet (NDD1) and THIN liquids, pills CRUSHED in PUREE. Pt requires total 1:[address] intervention no longer warranted, as this is reportedly her baseline. Please re-refer w/ any changes or further concern. Oral Medication Intake: Crushed with Puree Please contact the pharmacy regarding appropriate crushable or liquid drug formulations that are available whenever modified delivery is recommended. Compensatory Strategies and Precautions to be Taken for Safe Swallow: Sitting Upright (90 deg) Small Bites and Sips Alternate Liquids/Solids Rate of Ingestion Change Supervision While Eating and Drinking for Safe Swallow: Total Assistance (1:1) Recommendation for Speech: D/C Legislative Director Clinican/Clinical Fellow: No Supervisory Statement: I have reviewed and agree with the student/clinical fellow's documentation: N/A Speech Language Pathologist: Radha Lopez M.A., CCC-SEALING MACHINE OPERATOR
--- NOTE | 2023-09-04 11:55 | P.F2F_ITS ---
Service Date Service Date: 09/04/23 Encounter Date of encounter: 09/04/23 Encounter: fever ,possible uti Reasons for Services Signs and symptoms assessed: moniter for fevers ,urinary c/o ,sob Reason for detention: wound care, medication management, medication treatment and teach disease management MD Overseeing Care: Marry Campuzano Homebound: Leaving the home is medically contraindicated at this time without the asist of a device and/or another person due th the listed conditions above and below. Reason homebound: weakness related to hospital stay Homebound supporting statement: Patient is generalized weak have multiple comorbidities and need help to go to appointments, lab draws Certification: Based on the above findings, I certify that this patient is confined to the home and needs intermittent detention care, physical therapy and/or speech therapy, or continues to need occupational therapy. The patient is under my ca re, and I have initiated the establishment of the plan of care. The patient will be followed by a physician who will periodically review the plan of care. Time Spent With Patient Time: Total time managing care of this patient today ____ minutes.
[2023-09-04] MEDS: cefuroxime axetiL 500 MG TABLET PO (12:38)
[2023-09-04 12:57] LABS: Creatinine Clr Calc Pharmacy 83.7; Estimated Glomerular Filt Rate > 60
--- NOTE | 2023-09-04 14:02 | P.CDIM_ITS ---
PROVIDER RESPONSE TEXT: To clarify, the appropriate diagnosis supported by the clinical indicators: Moderate QUERY TEXT: PHYSICIAN'S DOCUMENTATION REQUEST Date of Query: 09/04/2023 12:02 PM EDT Patient Name: Gonzalez Santiago Admit Date: 09/02/2023 Dear Parisa Harrell, A review of the medical record indicates additional documentation may be needed. Please review below and update the documentation accordingly. Clinical indicators: Nutrition notes patient is non-severe malnourished with BMI 19.2 in the context of chronic illness. Mild depletion of body fat and muscle mass. Adding Ensure MAX TID. If possible, please provide additional specificity regarding the severity of the malnutrition using t he above information: Mild Moderate Severe Other (explain)Clinically unable to determine (explain)Thank you, Dilma Parrish, CCS, CDIS Use of terms such as suspected, likely, concern for, or probable (associated with a specific diagnosi s that is being evaluated, monitored, or treated as if it exists) are acceptable and can be coded in the inpatient se tting, when documented at the time of discharge. Please use your independent medical judgment in providing your response. THIS QUERY IS PART OF THE PERMANENT MEDICAL RECORD
--- NOTE | 2023-09-04 14:02 | P.CDIM_ITS ---
PROVIDER RESPONSE TEXT: To clarify, the appropriate diagnosis supported by the clinical indicators: Hypokalemia QUERY TEXT: PHYSICIAN'S DOCUMENTATION REQUEST Date of Query: 09/04/2023 10:19 AM EDT Patient Name: Gonzalez Santiago Admit Date: 09/02/2023 Dear Parisa Harrell, A review of the medical record indicates additional documentation may be needed. Please review below and update the documentation accordingly. Clinical Indicators: LAB FINDINGS: 09/03 - potassium 3.0 L Based on the above, is there a diagnosis that correlates with these lab findings: Hypokalemia Labs indicates another diagnosis please specify Other (explain)Clinically unable to determine (explain)Thank you, Dilma Parrish, CCS, CDIS Use of terms such as suspected, likely, concern for, or probable (associated with a specific diagnosi s that is being evaluated, monitored, or treated as if it exists) are acceptable and can be coded in the inpatient se tting, when documented at the time of discharge. Please use your independent medical judgment in providing your response. THIS QUERY IS PART OF THE PERMANENT MEDICAL RECORD
[2023-09-04 14:10] LABS: Potassium 3.4 mmol/L (3.3-5.1)
== END 2023-09-04 16:06 | disposition home health service (06) | DRG 871 ==
LOC: HO.ED 21:52 → HO.EDOVER 22:03 → HO.S3 22:47
PROVIDERS: Physician Assistant Medical; Admitting Provider Student in an Organized Health Care Education/Training Program; Emergency Provider Emergency Medicine; PCP Internal Medicine; Visit Provider Internal Medicine
DX: A41.9 Sepsis, unspecified organism (principal); J18.9 Pneumonia, unspecified organism; N39.0 Urinary tract infection, site not specified; E44.0 Moderate protein-calorie malnutrition; I44.2 Atrioventricular block, complete; E03.9 Hypothyroidism, unspecified; F03.90 Unspecified dementia, unspecified severity, without behavioral disturbance, psychotic disturbance, mood disturbance, and anxiety; E87.6 Hypokalemia; Z68.20 Body mass index [BMI] 20.0-20.9, adult; Z95.0 Presence of cardiac pacemaker; K59.09 Other constipation; L89.150 Pressure ulcer of sacral region, unstageable; Z23 Encounter for immunization; Z66 Do not resuscitate; Z20.822 Contact with and (suspected) exposure to COVID-19; Z86.14 Personal history of Methicillin resistant Staphylococcus aureus infection; Z87.891 Personal history of nicotine dependence; Z79.890 Hormone replacement therapy; Z79.899 Other long term (current) drug therapy
CPT/HCPCS: 0241U; 36415; 71045; 71260; 71275; 74177; 80048; 80053; 80202; 81001; 82248; 82565; 82803; 83605; 83735; 84132; 84484; 85025; 85027; 85610; 85730; 87040; 87086; 87633; 87635; 90686; 92526; 92610; 93005; 99285; J1650; J2543; J3370; J3371; Q9967

== ENCOUNTER → 2023-09-01 21:58 | Outpatient (BNV) | payer OTHER, SELFPAY | PROVIDERS: Admitting Provider Student in an Organized Health Care Education/Training Program; Emergency Provider Emergency Medicine; PCP Internal Medicine; Visit Provider Internal Medicine | DX: R50.9 Fever, unspecified (principal) | CPT/HCPCS: 99222 ==

== ENCOUNTER → 2023-09-01 21:58 | Outpatient (BNV) | payer OTHER, SELFPAY | PROVIDERS: Admitting Provider Student in an Organized Health Care Education/Training Program; Emergency Provider Emergency Medicine; PCP Internal Medicine; Visit Provider Student in an Organized Health Care Education/Training Program | DX: N39.0 Urinary tract infection, site not specified (principal) | CPT/HCPCS: 99223; 99231; 99233; 99239; G0180 ==

== ENCOUNTER 2023-09-18 13:45 | Inpatient (IN) | payer OTHER, SELFPAY ==
[2023-09-18] VITALS (7 sets, daily range): BP systolic 95–113; BP diastolic 53–60; PULSE 94–113; RESP 15–20; TEMP 36.6–39.6; O2SAT 93–97; BMI 18.9; BMI 18.3
--- NOTE | ~2023-09-18 | CT_ITS ---
EXAMINATION: CT CHEST, ABDOMEN AND PELVIS WITH CONTRAST. CLINICAL INFORMATION: SOB, febrile. COMPARISON: 09/01/2023. TECHNIQUE: Multidetector volumetric imaging was performed from the thoracic inlet through the pubic symphysis following administration of 85 mL Omnipaque 300 intravenous contrast. Sagittal and coronal reformatted images were obtained on the technologist's workstation. This CT examination was performed using dose optimization techniques as appropriate, variously including the following: *Automated exposure control *Adjustment of mA and/or kV according to patient size (this includes techniques or standardized protocols for targeted exams where dose is matched to indication/reason for exam; i.e. extremities or head) *Use of iterative reconstruction technique DLP: 760 mGy-cm FINDINGS: CHEST: Lung: Linear scarring or atelectasis is again seen in the dependent aspect of the bilateral lower lobes. No new nodularity or new dense consolidation with compared to the prior study. Mediastinum: Extensive calcified hilar and mediastinal lymph nodes again noted. Vascular calcification Pericardium/Pleura: No significant effusion. No pleural mass or thickening. Chest Wall/Axilla: Unremarkable. ABDOMEN/PELVIS: Peritoneal Space:No significant free air or free fluid identified. Liver, Gallbladder, Biliary Tree: The liver is normal in size, shape, and attenuation. No focal hepatic lesion or biliary ductal dilatation is present. The gallbladder is unremarkable with no evidence of radiopaque gallstones, gallbladder wall thickening, or obvious pericholecystic inflammatory changes. Pancreas: Unremarkable. Spleen: Unremarkable. Adrenal Glands: Unremarkable. Kidneys and Ureters: The kidneys are normal in size, shape, and attenuation. No hydronephrosis or hydroureter. Innumerable bilateral nonobstructing intrarenal calculi seen No perinephric stranding. Bladder: Decompressed Gastrointestinal Tract: Colon is redundant with scattered diverticula but no obvious diverticulitis. Visualized small bowel unremarkable Abdominal Wall: No significant hernia is appreciated. Lymphovascular Structures: No bulky lymphadenopathy. The aorta is unremarkable.. Pelvic Viscera: IUD within the retroverted uterus Osseus Structures: Extensive chronic appearing changes to the right hip with resorption or removal of the femoral head with extensive complex synovitis and joint fluid seen. This is a chronic abnormality and appears similar to the 09/01/2023 study with a small amount of more fluid extending into the iliopsoas bursa Spine: Multilevel chronic compression deformities in the spine CT/CT abdomen pelvis w IV con IMPRESSION: Chronic appearing changes similar to the prior study. I do not appreciate any acute intra-abdominal process.
--- NOTE | ~2023-09-18 | XR_ITS ---
EXAMINATION: XR CHEST CLINICAL INFORMATION: Cough COMPARISON: Previous chest x-ray most recent August 2023 TECHNIQUE: Frontal view of the chest was obtained. FINDINGS: The cardiac and mediastinal contours are stable. The thoracic aorta is calcified. There are calcified hilar and mediastinal lymph nodes. There is calcification projecting over the right upper lung. Compares with previous CT, this is within the anterior chest wall and may represent lymph node calcification as well. There is subsegmental atelectasis at the lung bases. The lungs are otherwise clear. No pleural effusion or pneumothorax. No acute bone abnormality. XR/XR chest 1V IMPRESSION: Subsegmental atelectasis at the lung bases.
--- NOTE | ~2023-09-18 | NM_ITS ---
EXAMINATION: TC-99M CERETEC WHITE BLOOD CELL STUDY CLINICAL INFORMATION: Fever of unknown origin. COMPARISON: No previous labeled white cell study is available for comparison. The diagnostic CT scan of the chest, abdomen, and pelvis, dated 09/18/2023, is available for comparison. TECHNIQUE: Multiple gamma scintillation camera images of the whole-body were performed 2.5 hours following the intravenous administration of 15 millicuries technetium 99m Ceretec labeled autologous white cells. Additional images of the chest and abdomen were obtained to demonstrate physiological white blood cell tagging. FINDINGS: No foci of abnormal activity are visualized at any site. Physiological activity in the liver, spleen, bone marrow and some excreted activity in the urinary bladder are noted. NM/NM white blood scan IMPRESSION: No evidence of active infection at any site.
[2023-09-18] MEDS: 0.9 % Sodium Chloride 1,000 ML 999 ML IV (14:35)
[2023-09-18 15:54] LABS: MANUAL DIFF FLAG NO
[2023-09-18 16:00] LABS: INTERNATIONAL NORM RATIO 1.3 (0.9-1.1); Prothrombin Time 15.8 SEC (11.1-13.3)
[2023-09-18] MEDS: Acetaminophen Supp 650 MG SUPP.RECT PR (16:02)
[2023-09-18 16:03] LABS: Basophils Absolute Auto 0.1 X10*3/uL (0.0-0.2); Basophils Percent Auto 0.4 % (0-2); Hemoglobin 12.1 g/dl (12.0-16.0); Imm Gran Abs Auto 0.12 X10*3/uL (0.00-0.03); Imm Gran Pct Auto 0.6 % (0.0-0.4); Lymphocytes Absolute Auto 1.7 X10*3/uL (1.2-4.9); Lymphocytes Percent Auto 8.5 % (20-40); Mean Corpuscular HGB Conc 31.8 g/dl (31.0-35.0); Mean Corpuscular Hemoglobin 28.7 pg (27.0-33.0); Mean Corpuscular Volume 90.3 fL (80.0-98.0); Mean Platelet Volume 9.5 fL (9.4-12.3); Monocytes Absolute Auto 0.8 X10*3/uL (0.1-1.2); Monocytes Percent Auto 3.7 % (2-11); Neutrophils Absolute Auto 17.6 x10*3/uL (2.0-8.3); Neutrophils Percent Auto 86.8 % (45-73); Platelet Count 591 X10*3/uL (160-400); Red Blood Count 4.21 X10*6/uL (4.20-5.50); Red Cell Distribution Width 14.4 % (11.0-16.0); White Blood Count 20.3 X10*3/uL (4.8-10.8)
--- NOTE | 2023-09-18 16:04 | ED.GENADULT ---
HPI - General Adult General Chief complaint: General Medical Stated complaint: AMS Time Seen by Provider: 09/18/23 13:57 Source: family and EMS Mode of arrival: EMS History of Present Illness HPI narrative: 58-year-old female who arrives via EMS with altered mental status for the past week, she was recently diagnosed with the UTI patient is nonverbal and healthcare proxy at the bedside provides history. Related Data Home Medications Medication Instructions Recorded Confirmed cholecalciferol (vitamin D3) 25 25 mcg PO Q OTHER DAY 06/19/23 09/02/23 mcg (1,000 unit) capsule cyanocobalamin (vitamin B-12) 1,000 mcg PO Q OTHER DAY 06/19/23 09/02/23 1,000 mcg tablet docusate sodium 100 mg capsule 100 mg PO BID PRN Constipation 06/19/23 09/02/23 lidocaine 4 % topical patch 1 patch topical DAILY PRN pain 06/19/23 09/02/23 multivitamin 1 tab PO Q OTHER DAY 06/19/23 09/02/23 polyethylene glycol 3350 17 gram 17 g PO DAILY PRN Constipation 06/19/23 09/02/23 oral powder packet (Miralax) gabapentin 100 mg capsule 200 mg PO DAILY 09/02/23 09/02/23 Previous Rx's Medication Instructions Recorded escitalopram oxalate 10 mg tablet 10 mg PO DAILY #90 tabs 02/21/22 hydrocolloid dressing 8 X 12 #5 ea 02/21/22 (DuoDERM CGF Dressing) adhesive tape 1 X 10 yard #2 ea 04/13/22 adhesive tape 1 X 10 yard #2 ea 04/13/22 ([employer]) adhesive tape 1 X 10 yard #2 ea 04/13/22 ([employer]) gauze bandage 4 X 4 #1,200 ea 04/13/22 gauze bandage 4 X 4 #1,200 ea 04/13/22 powered recliner chair #1 ea 11/22/22 roho seat cushion #1 ea 11/22/22 ferrous sulfate 325 mg (65 mg 325 mg PO DAILY #90 tabs 12/23/22 iron) tablet,delayed release nebulizers #1 ea 01/06/23 Air mattress overlay #1 ea 03/03/23 Adult disposable briefs #200 ea 03/17/23 body wipes #1,200 ea 03/17/23 disposable bed pads #100 ea 03/17/23 disposable gloves (Vinyl Gloves) #200 ea 03/17/23 levothyroxine 100 mcg tablet 100 mcg PO DAILY #90 tabs 04/02/23 gabapentin 300 mg capsule 300 mg PO BEDTIME #90 caps 06/29/23 gauze bandage 2 X 2 (Band-Aid #2,400 ea 06/29/23 Gauze Pads) gauze bandage 4 X 4 #1,200 ea 06/29/23 doxycycline hyclate 100 mg tablet 100 mg PO BID 30 days #60 tabs 07/04/23 baclofen 10 mg tablet 10 mg PO DAILY #90 tabs 07/12/23 folic acid 1 mg tablet 1 mg PO DAILY #90 tabs 07/12/23 cetirizine 10 mg capsule (Zyrtec) 10 mg PO DAILY PRN allergy 08/24/23 symptoms #90 caps cefuroxime axetil 500 mg tablet 500 mg PO BID #8 tabs 09/04/23 potassium chloride 10 mEq 10 meq PO DAILY #5 tabs 09/04/23 tablet,extended release Allergies Allergy/AdvReac Type Severity Reaction Status Date / Time [place] nut Allergy Unknown Verified 09/02/23 00:56 lactose Allergy Diarrhea Verified 09/02/23 00:56 Review of Systems Review of Systems: Yes Unobtainable due to mental condition [facility] Past Medical History Source: nursing notes reviewed Medical History Protein malnutrition Decubitus ulcer, unstageable with infection Colovaginal fistula Shortness of breath Rash Elevated LFTs Dementia Osteomyelitis of right hip Pressure injury of ankle, unstageable Pressure injury of sacral region, stage 3 Unspecified open wound, right hip, initial encounter Dementia Leukocytosis (leucocytosis) Fever Preoperative cardiovascular examination Pre-op evaluation Dislocation, hip closed History of pacemaker Hip dislocation, right Closed dislocation of right hip Visit for wound check Pacemaker Symptomatic bradycardia Syncope Sinus pause Abnormal EKG Displaced fracture of right femoral neck Closed hip fracture Urinary incontinence Balance disorder Left leg weakness Dementia Memory loss PTSD (post-traumatic stress disorder) Tobacco dependence Lactose intolerance Hypothyroidism Abnormal urine odor Surgical History S/P Girdlestone procedure History of hemiarthroplasty of right hip Hx of total hip arthroplasty Status post hip hemiarthroplasty No pertinent past surgical history Family History Family History Mother Unknown family medical history Father Unknown family medical history Social History Social History Household Members: Spouse Housing: Apartment Housing [facility]:: [facility] Do you presently have visiting nurse or other home services: Yes Unable to assess alcohol history related to: Unable to respond Alcohol intake: never Patient Tobacco Use Status: Former Tobacco user Tobacco use type: Cigarette Cigarettes Per Day: 5.0 Years Smoked: since teen years per pt Smoked in Last 30 Days: No e-Cigarette/Vaping Use: Never Used Second Hand Smoke Exposure: No Use of substances other than those prescribed or required for medical reasons: No Substance Use Type: Marijuana Advance Directives: Yes Advance Directives on File: Yes Advance Directives Date on File: 06/06/23 Patient : No service: No Current occupational status: disabled Current occupation: rt handed Cognitive needs: Yes Hearing needs: No Vision needs: Yes Physical Exam ED Vital Signs: Vital Signs - 24 hr 09/18/23 14:03 09/18/23 16:02 09/18/23 17:03 Temperature 99.1 F 103.3 F H Pulse Rate 113 H 109 H 106 H Respiratory Rate 19 15 19 Blood Pressure 106/56 L 105/60 106/58 L Pulse Oximetry 93 97 96 Oxygen Delivery Method Room Air Room Air Room Air 09/18/23 18:00 09/18/23 19:47 Temperature 100.3 F Pulse Rate 100 94 Respiratory Rate 18 20 Blood Pressure 105/56 L 95/53 L Pulse Oximetry 95 94 Oxygen Delivery Method Room Air Room Air BMI result Body Mass Index 18.9 VITAL SIGNS: Reviewed. GENERAL: Cachectic, appears older than stated age in no acute distress. HEAD: Normocephalic/atraumatic EYES: PERRLA, EOMI EARS: Ext canals without abnormality NOSE: Nares patent bilateral OROPHARYNX: no oral lesions noted, posterior pharynx clear NECK: Supple, no adenopathy LUNGS: Normal breath sounds. No adventitious sounds or accessory muscle use. SpO2<96> on supplemental oxygen CARDIOVASCULAR: Regular rate and rhythm without noted murmurs, no JVD or lower extremity edema. ABDOMEN: Soft, non-tender, non-distended with bowel sounds. MUSCULOSKELETAL: No tenderness, deformities, or effusions noted on gross inspection. EXTREMITIES: No cyanosis, clubbing or edema. SKIN: Inspection of the skin reveals no rashes NEUROLOGIC: Drowsy but strength and sensation to light touch were grossly intact x 4. Medications Administered Discontinued Medications Generic Name Dose Route Start Last Admin Trade Name Nicholasq PRN Reason Stop Dose Admin Acetaminophen 650 mg 09/18/23 15:56 09/18/23 16:02 Acetaminophen Supp 650 Mg Supp.Rect PA 09/18/23 15:57 650 mg ONCE ONE Administration Sodium Chloride 1,000 mls @ 999 mls/hr 09/18/23 14:00 09/18/23 15:36 Ns IV 09/18/23 15:00 Infused .Q1H1M JOMAR Infusion Piperacillin Sod/Tazobactam 50 mls @ 100 mls/hr 09/18/23 16:54 09/18/23 19:58 Sod 3.375 gm/ Sodium Chloride IV 09/18/23 17:23 Infused ONCE ONE Infusion Iohexol 100 ml 09/18/23 17:25 09/18/23 17:25 Iohexol 350 Mg/Ml 100 Ml Infus..Btl IV 09/18/23 17:26 85 ml ONCE ONE Administration Medical Decision Making Medical Decision Making [facility] Narrative: 1547: 58F with known colovaginal fistula and has had UTI previously and arrives with alteration in mental status, DDX: Infection, anemia, arrhythmia 1600: Delay and treatment secondary to challenging venous access which has been obtained at this time. I reviewed all investigations and hematologic indices demonstrate leukocytosis and left shift without anemia and there is a reactive elevation of platelets as well. Elevated coagulation studies with PT-15.8 and INR-1.3. Chemistry indices do not demonstrate any ALEXI or electrolyte derangements. Liver enzymes are mildly deranged with an elevation AST/ALT as well as alkaline phosphatase and on review of patient's chart there does appear to be a history of cholelithiasis as well. Although straight cath for urinalysis demonstrates presence of blood this is chronically present and there is no evidence of nitrites or leukocyte esterase and no evidence of wbc's or bacteria. COVID-19 testing is negative. 1654: Given the liver enzyme changes as well as the leukocytosis and fever will proceed with CT of the chest/abdomen/pelvis suspect there may be an issue of a hepatobiliary etiology. Antibiotics provided. Awaiting CT scans. I reviewed CT scans which are largely without acute findings, however I disagree with radiology in that I feel strongly that the source of infection may be this fluid collection that is been reported in patients right hip for a couple of scans thus far, on this most recent scan there is noted extension of the fluid collection into the iliopsoas bursa. Patient may benefit from IR intervention for drainage of this fluid and further IV antibiotics. 195: I discussed case with inpatient hospitalist who accepts admission. Differential Diagnosis Differential Diagnoses: The differential diagnosis associated with the presentation includes Please see the discussion Admission/Observation Consideration of admission/observation: Escalation of care including admission/observation considered Please see the discussion above Consult Healthcare Provider Management of the patient was discussed with: Hospitalist Please see the discussion above Lab Data MDM Lab Attestation statement: I reviewed the patient's lab results. Please see the discussion above 09/18/23 15:47 09/18/23 15:47 Labs: Lab Results 09/18/23 09/18/23 09/18/23 Range/Units 15:47 16:05 19:00 WBC 20.3 H (4.8-10.8) X10*3/uL RBC 4.21 (4.20-5.50) X10*6/uL Hgb 12.1 (12.0-16.0) g/dl Hct 38.0 (37.0-47.0) % MCV 90.3 (80.0-98.0) fL MCH 28.7 (27.0-33.0) pg MCHC 31.8 (31.0-35.0) g/dl RDW 14.4 (11.0-16.0) % Plt Count 591 H D (160-400) X10*3/uL MPV 9.5 (9.4-12.3) fL Immature Gran % (Auto) 0.6 H (0.0-0.4) % Neut % (Auto) 86.8 H (45-73) % Lymph % (Auto) 8.5 L (20-40) % [place] % (Auto) 3.7 (2-11) % Eos % (Auto) 0.0 (0-4) % Baso % (Auto) 0.4 (0-2) % Lymph # (Auto) 1.7 (1.2-4.9) X10*3/uL [place] # (Auto) 0.8 (0.1-1.2) X10*3/uL Eos # (Auto) 0.0 (0.0-0.4) X10*3/uL Baso # (Auto) 0.1 (0.0-0.2) X10*3/uL Abs Immat Gran (auto) 0.12 H (0.00-0.03) X10*3/uL Absolute Neuts (auto) 17.6 H (2.0-8.3) x10*3/uL Absolute Nucleated RBC 0.000 (0.0-0.012) X10*3/uL Nucleated RBC % (auto) 0.0 (0.0-0.2) /100WBC PT 15.8 H D (11.1-13.3) SEC INR 1.3 H (0.9-1.1) Sodium 139 (135-145) mmol/L Potassium 3.4 (3.3-5.1) mmol/L Chloride 104 (96-108) mmol/L Carbon Dioxide 24 (22-29) mmol/L Anion Gap 14 (12-20) BUN 13 (9-16) mg/dL Creatinine 0.56 (0.5-1.4) mg/dL Estim Creat Clear Calc 86.4 Estimated GFR > 60 Random Glucose 100 (60-115) mg/dL Lactic Acid 2.0 (0.5-2.0) mmol/L Calcium 9.3 D (8.4-10.2) mg/dL Total Bilirubin 0.4 (0.0-1.0) mg/dL AST 44 H (5-31) U/L ALT 43 H (0-31) U/L Alkaline Phosphatase 125 H (39-117) U/L Total Protein 7.5 (6.5-8.0) g/dL Albumin 3.4 L (3.5-5.0) g/dL Urine Color Dark Yellow Urine Appearance Clear Urine pH 5.5 (5.0-9.0) Ur Specific [place] 1.025 (1.005-1.025) Urine Protein 30 (1+) H (Neg-Trace) mg/dL Urine Glucose (UA) Negative (Negative) mg/dL Urine Ketones Negative (Negative) mg/dL Urine Blood Moderate (2+) H (Negative) Urine Nitrite Negative (Negative) Ur Leukocyte Esterase Negative (Negative) Urine RBC 3-5 H (0-2) /HPF Urine WBC 0-5 (0-5) /HPF Ur Squamous Epith Cells 0-2 (0-2) /HPF Urine Bacteria None Seen (None Seen) Hyaline Casts 3-5 (0-2) /LPF COVID-19 (BOB) Negative (Negative) COVID-19 Clin Com See Note Influenza Type A (PCR) NEGATIVE (Negative) Influenza Type B (PCR) NEGATIVE (Negative) RSV RNA Qual (PCR) NEGATIVE (Negative) SARS-CoV-2 RNA (RT-PCR) NEGATIVE (Negative) Radiology Impression Discussion of test interpretation with radiology: I have reviewed the radiologist's reading. Radiologist Impression: Please see the discussion above External Record Review External record reviewed: Outpatient record, Prior outpatient labs and Prior outpatient radiology Critical Care Time Critical Care Time Critical Care Time: Yes Total Critical Care Time: 60 Attestation: I personally attest to this time spent taking care of the patient. Discharge Plan Discharge Clinical Impression: Sepsis, Groin fluid collection Patient Disposition: Admitted As Inpatient
--- NOTE | 2023-09-18 16:05 | PC.NURSE ---
st on monitor, non verbal, caregiver at bedside, rectal temp 103.3, pr apap given, straight cath done and ua sent, pt tolerated everything well with nad, mult attempts at iv and lab draws and #20 iv r ac placed and infusing well
[2023-09-18 16:12] LABS: COVID-19 Test Negative (Negative); IDNOW Serial# BCCEAD1C
[2023-09-18 16:14] LABS: Alanine Aminotransferase 43 U/L (0-31); Albumin Level 3.4 g/dL (3.5-5.0); Alkaline Phosphatase 125 U/L (39-117); Anion Gap 14 (12-20); Aspartate Amino Transferase 44 U/L (5-31); Bilirubin Total 0.4 mg/dL (0.0-1.0); Blood Urea Nitrogen 13 mg/dL (9-16); Calcium 9.3 mg/dL (8.4-10.2); Carbon Dioxide 24 mmol/L (22-29); Chloride 104 mmol/L (96-108); Creatinine Clr Calc Pharmacy 86.4; Estimated Glomerular Filt Rate > 60; Glucose Random 100 mg/dL (60-115); Potassium 3.4 mmol/L (3.3-5.1); Sodium 139 mmol/L (135-145); Total Protein 7.5 g/dL (6.5-8.0)
[2023-09-18 16:15] LABS: Appearance Urine Clear; Color Urine Dark Yellow; Glucose Urine UA Negative (Negative); Leukocyte Esterase Urine Negative (Negative); Nitrite Urine Negative (Negative); PH 5.5 (5.0-9.0); Specific Gravity - Urine 1.025 (1.005-1.025); UMIC TRIGGER UACC YES; Urine Blood Moderate (2+) (Negative); Urine Ketones Negative (Negative); Urine Protein 30 (1+) mg/dL (Neg-Trace)
[2023-09-18 16:31] LABS: Bacteria Urine None Seen (None Seen); Squamous Epithelial Cell Urine 0-2 /HPF (0-2); WBC Urine 0-5 /HPF (0-5)
[2023-09-18] MEDS: Piperacillin Sodium/Tazobactam 3.375 GM in 0.9 % Sodium Chloride 50 ML IV (17:02)
[2023-09-18] MEDS: iohexoL 350 MG/ML 100 ML INFUS..BTL IV (17:25)
[2023-09-18 19:54] LABS: Influenza A PCR NEGATIVE (Negative); Influenza B PCR NEGATIVE (Negative); Resp Syncy Virus RNA Qual PCR NEGATIVE (Negative); SARS COV2 PCR INHOUSE NEGATIVE (Negative)
--- NOTE | 2023-09-18 20:18 | PM.IMHP ---
History of Present Illness Date of Service: 09/18/23 Chief Complaint: Altered mentation This is a 58-year-old female with history of hypothyroidism, advanced dementia minimally verbal at baseline, mood disorder, complete heart block status post ppm, history of MRSA and osteomyelitis of the right hip who was sent to the ER for evaluation of fevers. Unable to obtain history from the patient. History obtained from ER provider and chart review. As per the patient's , she was noted to have fever and was sent to the ER for further evaluation. He confirms that patient is DNR/DNI. He is the caregiver of the patient. Unable to obtain review of systems In the emergency department, patient was found to be septic Review of Systems Review of Systems: Yes Unobtainable due to mental condition and Unobtainable due to mental status PMFSH Medical History Protein malnutrition Decubitus ulcer, unstageable with infection Colovaginal fistula Shortness of breath Rash Elevated LFTs Dementia Osteomyelitis of right hip Pressure injury of ankle, unstageable Pressure injury of sacral region, stage 3 Unspecified open wound, right hip, initial encounter Dementia Leukocytosis (leucocytosis) Fever Preoperative cardiovascular examination Pre-op evaluation Dislocation, hip closed History of pacemaker Hip dislocation, right Closed dislocation of right hip Visit for wound check Pacemaker Symptomatic bradycardia Syncope Sinus pause Abnormal EKG Displaced fracture of right femoral neck Closed hip fracture Urinary incontinence Balance disorder Left leg weakness Dementia Memory loss PTSD (post-traumatic stress disorder) Tobacco dependence Lactose intolerance Hypothyroidism Abnormal urine odor Family History Mother Unknown family medical history Father Unknown family medical history Surgical History S/P Girdlestone procedure History of hemiarthroplasty of right hip Hx of total hip arthroplasty Status post hip hemiarthroplasty No pertinent past surgical history Social History Household Members: Spouse Housing: Apartment Housing Other:: From [facility] Do you presently have visiting nurse or other home services: Yes Unable to assess alcohol history related to: Unable to respond Alcohol intake: never Patient Tobacco Use Status: Former Tobacco user Tobacco use type: Cigarette Cigarettes Per Day: 5.0 Years Smoked: since teen years per pt Smoked in Last 30 Days: No e-Cigarette/Vaping Use: Never Used Second Hand Smoke Exposure: No Use of substances other than those prescribed or required for medical reasons: No Substance Use Type: Marijuana Have you been hit, kicked, punched, or otherwise hurt by someone within the past year? If so, by whom?: No Do you feel safe in your current relationship?: Yes Is there a partner from a previous relationship who is making you feel unsafe now?: No Are you made to feel afraid or neglected: No Advance Directives: Yes Advance Directives on File: Yes Advance Directives Date on File: 06/06/23 Do you have thoughts of harming others: None Do you have a plan to hurt others: No Plan Recently lost weight without trying: Yes How much weight loss: 34pounds or more Eating poorly because of decreased appetite: Yes Nutrition screen score: 7 Nutrition Risks: Difficulty chewing, Difficulty swallowing and On aspiration precautions Patient : No : No Poor oral hygiene: No service: No Current occupational status: disabled Current occupation: rt handed Cognitive needs: Yes Hearing needs: No Vision needs: Yes Meds Allergies Allergy/AdvReac Type Severity Reaction Status Date / Time [place] nut Allergy Unknown Verified 09/02/23 00:56 lactose Allergy Diarrhea Verified 09/02/23 00:56 Home Medications Medication Instructions Recorded Confirmed Last Taken Type cholecalciferol (vitamin D3) 25 25 mcg PO Q OTHER DAY 06/19/23 09/18/23 09/18/23 History mcg (1,000 unit) capsule cyanocobalamin (vitamin B-12) 1,000 mcg PO DAILY 06/19/23 09/18/23 09/18/23 History 1,000 mcg tablet docusate sodium 100 mg capsule 100 mg PO BID Constipation 06/19/23 09/18/23 09/18/23 History lidocaine 4 % topical patch 1 patch topical DAILY knee pain 06/19/23 09/18/23 09/18/23 History multivitamin 1 tab PO Q OTHER DAY 06/19/23 09/18/23 09/17/23 History polyethylene glycol 3350 17 gram 17 g PO DAILY PRN Constipation 06/19/23 09/18/23 09/18/23 History oral powder packet (Miralax) gabapentin 100 mg capsule 200 mg PO DAILY 09/02/23 09/18/23 09/18/23 History acetaminophen 325 mg tablet 650 mg PO Q6H PRN Pain 09/18/23 09/18/23 09/18/23 History cetirizine 10 mg tablet 10 mg PO DAILY 09/18/23 09/18/23 09/18/23 History Physical Exam Vital Signs and Narrative: Vital Signs: Last Vital Signs Temp 100.3 F 09/18/23 19:47 Pulse 94 09/18/23 19:47 Resp 20 09/18/23 19:47 BP 95/53 L 09/18/23 19:47 Pulse Ox 94 09/18/23 19:47 O2 Del Method Room Air 09/18/23 19:47 BMI result Body Mass Index 18.9 Elderly female lying in bed in no distress Neck supple, no JVD Regular rate and rhythm, S1-S2 heard Decreased breath sounds at bases, no wheezing Abdomen soft nontender, no guarding, no rigidity Patient is awake, and nonverbal, unable to assess orientation Musculoskeletal: Contracted extremities, Right hip healing wound seen, no serosanguineous drainage Sacral decubitus ulcer seen Psych: Normal mood Results Labs 09/18/23 15:47 09/18/23 15:47 Labs: Laboratory Results - last 24 hr 09/18/23 09/18/23 09/18/23 15:47 16:05 19:00 MCV 90.3 MCH 28.7 MCHC 31.8 RDW 14.4 Plt Count 591 H D MPV 9.5 Immature Gran % (Auto) 0.6 H Neut % (Auto) 86.8 H Lymph % (Auto) 8.5 L [place] % (Auto) 3.7 Eos % (Auto) 0.0 Baso % (Auto) 0.4 Lymph # (Auto) 1.7 [place] # (Auto) 0.8 Eos # (Auto) 0.0 Baso # (Auto) 0.1 Abs Immat Gran (auto) 0.12 H Absolute Neuts (auto) 17.6 H Absolute Nucleated RBC 0.000 Nucleated RBC % (auto) 0.0 PT 15.8 H D INR 1.3 H Anion Gap 14 Estim Creat Clear Calc 86.4 Estimated GFR > 60 Random Glucose 100 Lactic Acid 2.0 Calcium 9.3 D Total Bilirubin 0.4 AST 44 H ALT 43 H Alkaline Phosphatase 125 H Total Protein 7.5 Albumin 3.4 L Urine Color Dark Yellow Urine Appearance Clear Urine pH 5.5 Ur Specific [place] 1.025 Urine Protein 30 (1+) H Urine Glucose (UA) Negative Urine Ketones Negative Urine Blood Moderate (2+) H Urine Nitrite Negative Ur Leukocyte Esterase Negative Urine RBC 3-5 H Urine WBC 0-5 Ur Squamous Epith Cells 0-2 Urine Bacteria None Seen Hyaline Casts 3-5 COVID-19 (BOB) Negative COVID-19 Clin Com See Note Influenza Type A (PCR) NEGATIVE Influenza Type B (PCR) NEGATIVE RSV RNA Qual (PCR) NEGATIVE SARS-CoV-2 RNA (RT-PCR) NEGATIVE Imaging Radiologist's Impressions: Impressions Chest X-Ray 09/18/23 15:25 IMPRESSION: Subsegmental atelectasis at the lung bases. Abdomen/Pelvis CT 09/18/23 17:31 IMPRESSION: Chronic appearing changes similar to the prior study. I do not appreciate any acute intra-abdominal process. Chest CT 09/18/23 17:32 IMPRESSION: Chronic appearing changes similar to the prior study. I do not appreciate any acute intra-abdominal process. Assessment and Plan (1) Sepsis: Status: Acute Plan This is a 58-year-old female with history of hypothyroidism, advanced dementia minimally verbal at baseline, mood disorder, complete heart block status post ppm, history of MRSA and osteomyelitis of the right hip who was sent to the ER for evaluation of altered mentation and fevers. #. SIRS+ , unclear etiology: Resuscitated with IV crystalloids in the ER. Initiating empiric IV antibiotics. Lactic acid and blood culture obtained. Consulting Infectious Disease #. Hypothyroidism. On Synthroid #. Dementia. Maintain sleep-wake cycle #. Sacral decubitus wound. Consulting Wound Care. Frequent change in position Med rec pending DVT prophylaxis: Lovenox DNR/DNI. Discussed with at bedside NPO Admit as inpatient and will require two night minimum hospital stay for IV antibiotics Quality Stroke Does the patient have a stroke diagnosis?: No VTE Prior VTE?: No VTE Risk Level:: Medical - moderate - high VTE Device Contraindication: Treatment Not Indicated VTE Drug Contraindication: N/A - Med Ordered
--- NOTE | 2023-09-18 20:42 | PHA.MEDREC ---
Pharmacy Consult ? Medication Reconciliation Pharmacy has completed the medication reconciliation. Patient's significant other confirm medications. Letha Znedejas, BennettD
[2023-09-18] MEDS: Enoxaparin Sodium 40 MG/0.4 ML SYRINGE SUBCUT (21:47)
[2023-09-18] MEDS: vancomycin HCL 1,250 MG in 0.9 % Sodium Chloride 250 ML 166.67 MG IV (21:47)
--- NOTE | 2023-09-18 22:28 | PHA.PROG ---
Admission Date/Time: September 18, 2023 20:16 Indication: Sepsis Weight in k.3 kg Adjusted body weight in K.82 kg [place] body weight in K.7 kg Obesity Dosing Indication % IBW: N/A Serum Creatinine - Last 168 Hours 09/18/23 15:47 Creatinine 0.56 Estimated CrCl and GFR - Last 168 Hours 09/18/23 15:47 Estim Creat Clear Calc 86.4 Estimated GFR > 60 Vancomycin Loading Dose: 1250 mg Current Vancomycin Dosing Regimen: 750 mg Q12H Date and Time for next Vancomycin Level to be drawn: 09/20 @ 0800 Pharmacist Comments on Vancomycin Plan: Maintenance dose vancomycin 1250 mg was given in the er 08/18 @ 2147 Maintenance dose vanco 750 mg Q12H is scheduled to start 08/19 @ 1000. Predicted AUC is 432 with a trough of 12.7 Level will be drawn prior to 4th dose pharmacy will monitor renal function daily Letha Zendejas PharmD Vancomycin dosing will take advantage of [employer] as a clinical decision support tool that uses Bayesian modeling to calculate individual patient's pharmacokinetic parameters and forecast the patient's drug concentration time course with the target goal AUC 24 range of 400 - 600 mg/L/hr.
[2023-09-18] MEDS: Piperacillin Sodium/Tazobactam 4.5 GM in 0.9 % Sodium Chloride 100 ML IV (23:56)
--- NOTE | 2023-09-19 02:00 | HO.SKINPHOTO ---
Addendum entered by Sanjana Javier 09/19/23 03:54: Initial admission [id number]/6/2023 @ 22:30: sacral decubitus ,unstageable Wound is clean with NS and foam dressing intact to sacral area. Original Note: Location: Category: Stage: Length: Width: Depth: cm Location: Category: Stage: Length: Width: Depth: cm Location: Category: Stage: Length: Width: Depth: cm Location: Category: Stage: Length: Width: Depth: cm Location: Category: Stage: Length: Width: Depth: cm Location: Category: Stage: Length: Width: Depth: cm
[2023-09-19 03:26] VITALS: BP 123/77; PULSE 89; RESP 16; TEMP 36.7; O2SAT 94
[2023-09-19] MEDS: Piperacillin Sodium/Tazobactam 4.5 GM in 0.9 % Sodium Chloride 100 ML IV ×4 (05:33→23:50)
[2023-09-19 05:35] LABS: MANUAL DIFF FLAG NO
[2023-09-19 05:46] LABS: Basophils Absolute Auto 0.1 X10*3/uL (0.0-0.2); Basophils Percent Auto 0.6 % (0-2); Eosinophils Absolute Auto 0.1 X10*3/uL (0.0-0.4); Eosinophils Percent Auto 0.4 % (0-4); Hemoglobin 10.7 g/dl (12.0-16.0); Imm Gran Abs Auto 0.11 X10*3/uL (0.00-0.03); Imm Gran Pct Auto 0.7 % (0.0-0.4); Lymphocytes Absolute Auto 1.6 X10*3/uL (1.2-4.9); Lymphocytes Percent Auto 9.7 % (20-40); Mean Corpuscular HGB Conc 31.5 g/dl (31.0-35.0); Mean Corpuscular Hemoglobin 28.5 pg (27.0-33.0); Mean Corpuscular Volume 90.7 fL (80.0-98.0); Monocytes Absolute Auto 0.8 X10*3/uL (0.1-1.2); Monocytes Percent Auto 4.8 % (2-11); Neutrophils Absolute Auto 13.9 x10*3/uL (2.0-8.3); Neutrophils Percent Auto 83.8 % (45-73); Platelet Count 512 X10*3/uL (160-400); Red Blood Count 3.75 X10*6/uL (4.20-5.50); Red Cell Distribution Width 14.2 % (11.0-16.0); White Blood Count 16.6 X10*3/uL (4.8-10.8)
[2023-09-19 06:00] LABS: Anion Gap 13 (12-20); Blood Urea Nitrogen 11 mg/dL (9-16); Calcium 9.9 mg/dL (8.4-10.2); Carbon Dioxide 25 mmol/L (22-29); Chloride 106 mmol/L (96-108); Creatinine Clr Calc Pharmacy 91.6; Estimated Glomerular Filt Rate > 60; Glucose Random 91 mg/dL (60-115); Potassium 3.4 mmol/L (3.3-5.1); Sodium 141 mmol/L (135-145)
[2023-09-19 07:57] VITALS: BP 147/69; PULSE 88; RESP 16; TEMP 36.6; O2SAT 97
--- NOTE | 2023-09-19 08:04 | HE.PHANOTE ---
VANCO DOSE ADJUSTMENT BASED ON SCR DOSE CONTINUED AT 750 Q 12H. NEXT TROUGH 09/20 @ 0800
[2023-09-19] MEDS: 0.9 % Sodium Chloride Flush 3 ML SYRINGE IVFLUSH (08:59)
[2023-09-19] MEDS: vancomycin HCL 750 MG in 0.9 % Sodium Chloride 250 ML 265 MG IV ×2 (10:35→22:29)
[2023-09-19] MEDS: Lidocaine 4 % Patch ADH..PATCH 2 PATCH TRANSDERMA (10:36)
[2023-09-19 11:46] VITALS: BMI 19.5
--- NOTE | 2023-09-19 11:52 | MHC.CLN ---
PT IS MODERATELY MALNOURISHED QUALIFIES NON SEVERE MALNUTRITION IN THE CONTEXT OF CHRONIC ILLNESS SIGNIFICANT WEIGHT LOSS X 11 MONTHS WITH MILD DEPLETION OF BODY FAT AND MUSCLE MASS PT IS CURRENTLY NPO PT PREVIOUSLY TOLERATED A PUREE DIET-FAMILIAR FROM PREVIOUS ADMISSIONS WHEN DIET TO ADVANCE, RECOMMEND ADDING ENSURE MAX PROTEIN TID TO PROMOTE WOUND HEALING SUPP TO PROVIDE 450 KCALS, 90G PROTEIN PT TAKES TAKES NUTRITIONAL SUPPLEMENT AT HOME FOLLOW FOR DIET TOLERANCE, INTAKE AND WOUND HEALING SEE ALSO FULL NUTRITION ASSESSMENT
[2023-09-19 12:00] VITALS: BP 103/58; PULSE 88; RESP 16; TEMP 37; O2SAT 94
[2023-09-19] MEDS: Lactated Ringers 1,000 ML 80 ML IVCONT (13:39)
--- NOTE | 2023-09-19 13:47 | MHC.CM.PN ---
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
--- NOTE | 2023-09-19 14:33 | HO.PM.IMPN ---
Subjective Subjective Date of Service: 09/19/23 Review of Systems Follow up SIRS nonverbal, bedbound patient Physical Exam Vital Signs: Vital Signs: Last Vital Signs Temp 98.6 F 09/19/23 12:00 Pulse 88 09/19/23 12:00 Resp 16 09/19/23 12:00 BP 103/58 L 09/19/23 12:00 Pulse Ox 94 09/19/23 12:00 O2 Del Method Room Air 09/19/23 12:00 BMI result Body Mass Index 19.5 nonverbal bed bound Lungs normal expansion Objective Data Active Medications Acetaminophen (Acetaminophen 325 Mg Tablet) 650 mg PO Q6H PRN PRN Reason: Pain, Mild (Pain Scale 1-3) Baclofen (Baclofen 10 Mg Tablet) 10 mg PO DAILY [facility] Last Admin: 09/19/23 09:42 Dose: Not Given Documented By: ELIZABETH Non-Admin Reason: NPO Cyanocobalamin (Cyanocobalamin (Vitamin B-12) 1,000 Mcg Tablet) 1,000 mcg PO DAILY [facility] Last Admin: 09/19/23 09:43 Dose: Not Given Documented By: ELIZABETH Non-Admin Reason: NPO Docusate Sodium (Docusate Sodium 100 Mg Capsule) 100 mg PO BID [facility] Last Admin: 09/19/23 09:43 Dose: Not Given Documented By: ELIZABETH Non-Admin Reason: NPO Enoxaparin Sodium (Enoxaparin Sodium 40 Mg/0.4 Ml Syringe) 40 mg SUBCUT Q24H [facility] Last Admin: 09/18/23 21:47 Dose: 40 mg Documented By: CESILIA Ferrous Sulfate (Ferrous Sulfate 324 Mg Tablet.) 324 mg PO DAILY [facility] Last Admin: 09/19/23 09:43 Dose: Not Given Documented By: ELIZABETH Non-Admin Reason: NPO Folic Acid (Folic Acid 1 Mg Tablet) 1 mg PO DAILY [facility] Last Admin: 09/19/23 09:43 Dose: Not Given Documented By: ELIZABETH Non-Admin Reason: NPO Gabapentin (Gabapentin 100 Mg Capsule) 200 mg PO DAILY [facility] Last Admin: 09/19/23 09:43 Dose: Not Given Documented By: ELIZABETH Non-Admin Reason: NPO Gabapentin (Gabapentin 300 Mg Capsule) 300 mg PO BEDTIME [facility] Piperacillin Sod/Tazobactam (Sod 4.5 gm/ Sodium Chloride) 100 mls @ 200 mls/hr IV Q6H [facility] Last Infusion: 09/19/23 13:21 Dose: Infused Documented By: ELIZABETH Vancomycin HCl 750 mg/ Sodium (Chloride) 265 mls @ 265 mls/hr IV Q12H [facility] Last Infusion: 09/19/23 12:35 Dose: Infused Documented By: ELIZABETH Lactated Ringer's (Lr) 1,000 mls @ 80 mls/hr IVCONT .[id number] [facility] Last Admin: 09/19/23 13:39 Dose: 80 mls/hr Documented By: ELIZABETH Levothyroxine Sodium (Levothyroxine Sodium 100 Mcg Tablet) 100 mcg PO DAILY@0600 [facility] Last Admin: 09/19/23 09:42 Dose: Not Given Documented By: ELIZABETH Non-Admin Reason: NPO Lidocaine (Lidocaine 4 % Patch Adh..Patch) 2 patch TRANSDERMA DAILY [facility]; Protocol Last Admin: 09/19/23 10:36 Dose: 2 patch Documented By: ELIZABETH Loratadine (Loratadine 10 Mg Tablet) 10 mg PO DAILY [facility] Last Admin: 09/19/23 09:43 Dose: Not Given Documented By: ELIZABETH Non-Admin Reason: NPO Melatonin (Melatonin 3 Mg Tablet) 6 mg PO BEDTIME PRN PRN Reason: Insomnia Multivitamins/Vitamin C (Multivitamin Tablet) 1 tab PO Q48H [facility] Last Admin: 09/19/23 09:44 Dose: Not Given Documented By: ELIZABETH Non-Admin Reason: NPO Ondansetron HCl (Ondansetron Hcl 4 Mg/2 Ml Vial) 4 mg IVPUSH Q8H PRN PRN Reason: Nausea and Vomiting Pharmacy Consult (Consult Rx Vancomycin Dosing) 1 each MISCELLANE DAILY PRN PRN Reason: Consult order Polyethylene Glycol (Polyethylene Glycol 3350 17 Gm Powd.Pack) 17 gm PO DAILY PRN PRN Reason: Constipation Sodium Chloride (0.9 % Sodium Chloride Flush 3 Ml Syringe) 3 ml IVFLUSH QSHIFT [facility] Last Admin: 09/19/23 08:59 Dose: 3 ml Documented By: ELIZABETH Vitamin D (Cholecalciferol (Vitamin D3) 25 Mcg Tablet) 25 mcg PO Q48H [facility] Last Admin: 09/19/23 09:43 Dose: Not Given Documented By: ELIZABETH Non-Admin Reason: NPO Labs 09/19/23 05:02 09/19/23 05:02 Labs: Laboratory Results - last 24 hr 09/18/23 09/18/23 09/18/23 15:47 16:05 19:00 MCV 90.3 MCH 28.7 MCHC 31.8 RDW 14.4 Plt Count 591 H D MPV 9.5 Immature Gran % (Auto) 0.6 H Neut % (Auto) 86.8 H Lymph % (Auto) 8.5 L [place] % (Auto) 3.7 Eos % (Auto) 0.0 Baso % (Auto) 0.4 Lymph # (Auto) 1.7 [place] # (Auto) 0.8 Eos # (Auto) 0.0 Baso # (Auto) 0.1 Abs Immat Gran (auto) 0.12 H Absolute Neuts (auto) 17.6 H Absolute Nucleated RBC 0.000 Nucleated RBC % (auto) 0.0 PT 15.8 H D INR 1.3 H Anion Gap 14 Estim Creat Clear Calc 86.4 Estimated GFR > 60 Random Glucose 100 Lactic Acid 2.0 Calcium 9.3 D Total Bilirubin 0.4 AST 44 H ALT 43 H Alkaline Phosphatase 125 H Total Protein 7.5 Albumin 3.4 L Urine Color Dark Yellow Urine Appearance Clear Urine pH 5.5 Ur Specific [place] 1.025 Urine Protein 30 (1+) H Urine Glucose (UA) Negative Urine Ketones Negative Urine Blood Moderate (2+) H Urine Nitrite Negative Ur Leukocyte Esterase Negative Urine RBC 3-5 H Urine WBC 0-5 Ur Squamous Epith Cells 0-2 Urine Bacteria None Seen Hyaline Casts 3-5 COVID-19 (BOB) Negative COVID-19 Clin Com See Note Influenza Type A (PCR) NEGATIVE Influenza Type B (PCR) NEGATIVE RSV RNA Qual (PCR) NEGATIVE SARS-CoV-2 RNA (RT-PCR) NEGATIVE 09/19/23 05:02 MCV 90.7 MCH 28.5 MCHC 31.5 RDW 14.2 Plt Count 512 H MPV 10.0 Immature Gran % (Auto) 0.7 H Neut % (Auto) 83.8 H Lymph % (Auto) 9.7 L [place] % (Auto) 4.8 Eos % (Auto) 0.4 Baso % (Auto) 0.6 Lymph # (Auto) 1.6 [place] # (Auto) 0.8 Eos # (Auto) 0.1 Baso # (Auto) 0.1 Abs Immat Gran (auto) 0.11 H Absolute Neuts (auto) 13.9 H Absolute Nucleated RBC 0.000 Nucleated RBC % (auto) 0.0 PT INR Anion Gap 13 Estim Creat Clear Calc 91.6 Estimated GFR > 60 Random Glucose 91 Lactic Acid Calcium 9.9 D Total Bilirubin AST ALT Alkaline Phosphatase Total Protein Albumin Urine Color Urine Appearance Urine pH Ur Specific [place] Urine Protein Urine Glucose (UA) Urine Ketones Urine Blood Urine Nitrite Ur Leukocyte Esterase Urine RBC Urine WBC Ur Squamous Epith Cells Urine Bacteria Hyaline Casts COVID-19 (BOB) COVID-19 Clin Com Influenza Type A (PCR) Influenza Type B (PCR) RSV RNA Qual (PCR) SARS-CoV-2 RNA (RT-PCR) Assessment and Plan (1) Fever: Status: Acute Plan This is a 58-year-old female with history of hypothyroidism, advanced dementia minimally verbal at baseline, mood disorder, complete heart block status post ppm, history of MRSA and osteomyelitis of the right hip who was sent to the ER for evaluation of altered mentation and fevers. SIRS+ , unclear etiology chest CT not show any consolidation or effusion UA not showing acute infection Possibly bacteremia Resuscitated with IV crystalloids in the ER. continue empiric IV antibiotics. blood cultures pending Consulting Infectious Disease Dysphagia NPO for now, speech consult pending Hypothyroidism. On Synthroid Dementia. Maintain sleep-wake cycle Sacral decubitus wound. Consulting Wound Care. Frequent change in position DVT prophylaxis: Lovenox DNR/DNI. Discussed with at bedside Attending Dr. Geller continued hospital stay for tx of SIRS requiring IV abx untill blood cultures return Quality Stroke Does the patient have a stroke diagnosis?: No VTE Prior VTE?: No VTE Risk Level:: Medical - moderate - high VTE Device Contraindication: Treatment Not Indicated VTE Drug Contraindication: N/A - Med Ordered
[2023-09-19 16:00] VITALS: BP 118/51; PULSE 95; RESP 20; TEMP 36.7; O2SAT 94
[2023-09-19 19:49] VITALS: BP 140/68; PULSE 96; RESP 18; TEMP 36.3; O2SAT 94
[2023-09-19] MEDS: Enoxaparin Sodium 40 MG/0.4 ML SYRINGE SUBCUT (20:04)
--- NOTE | 2023-09-19 22:21 | W.PM.IDCN ---
History of Present Illness Data of Consult Service Date: 09/19/23 Requesting physician: Chichi Khan Primary Care Provider: Marry Campuzano MD HPI Reason for consult: fever of unknown origin She presents 09/18 with fever of 103 at home. She had admission last month 09/01 to 09/04 and finished po cefuroxime on 09/08 for similar reasons ,fever and no source. This admission lung, abdomen and urine unremarkable. The only source seen with some increased possible spread into iliopsoas muscle is the right hip as ER pointed out with more destruction and fluid. She was seen by Orthopedics last visit and nothing seen of note. Blood cultures then and now are negative. Review of Systems Review of Systems: Yes Unobtainable due to mental condition PMFSH Past Medical History Medical History Protein malnutrition Decubitus ulcer, unstageable with infection Colovaginal fistula Shortness of breath Rash Elevated LFTs Dementia Osteomyelitis of right hip Pressure injury of ankle, unstageable Pressure injury of sacral region, stage 3 Unspecified open wound, right hip, initial encounter Dementia Leukocytosis (leucocytosis) Fever Preoperative cardiovascular examination Pre-op evaluation Dislocation, hip closed History of pacemaker Hip dislocation, right Closed dislocation of right hip Visit for wound check Pacemaker Symptomatic bradycardia Syncope Sinus pause Abnormal EKG Displaced fracture of right femoral neck Closed hip fracture Urinary incontinence Balance disorder Left leg weakness Dementia Memory loss PTSD (post-traumatic stress disorder) Tobacco dependence Lactose intolerance Hypothyroidism Abnormal urine odor Family History Family History Mother Unknown family medical history Father Unknown family medical history Family history: reviewed and not pertinent Surgical History Surgical History S/P [place] procedure History of hemiarthroplasty of right hip Hx of total hip arthroplasty Status post hip hemiarthroplasty No pertinent past surgical history Social History Social History Household Members: Spouse Housing: Apartment Housing Other:: From [facility] Do you presently have visiting nurse or other home services: Yes Unable to assess alcohol history related to: Unable to respond Alcohol intake: never Patient Tobacco Use Status: Former Tobacco user Tobacco use type: Cigarette Cigarettes Per Day: 5.0 Years Smoked: since teen years per pt Smoked in Last 30 Days: No e-Cigarette/Vaping Use: Never Used Second Hand Smoke Exposure: No Use of substances other than those prescribed or required for medical reasons: No Substance Use Type: Marijuana Currently Displaying Signs/Symptoms of Drug Intoxication Withdrawal: No Have you been hit, kicked, punched, or otherwise hurt by someone within the past year? If so, by whom?: No Do you feel safe in your current relationship?: Yes Is there a partner from a previous relationship who is making you feel unsafe now?: No Are you made to feel afraid or neglected: No Advance Directives: Yes Advance Directives on File: Yes Advance Directives Date on File: 06/06/23 Do you have thoughts of harming others: None Do you have a plan to hurt others: No Plan Recently lost weight without trying: Yes How much weight loss: 34pounds or more Eating poorly because of decreased appetite: Yes Nutrition screen score: 7 Nutrition Risks: Difficulty chewing, Difficulty swallowing and On aspiration precautions Patient : No : No Poor oral hygiene: No service: No Current occupational status: disabled Current occupation: rt handed Cognitive needs: Yes Hearing needs: No Vision needs: Yes Meds Allergies Allergy/AdvReac Type Severity Reaction Status Date / Time [place] nut Allergy Unknown Verified 09/02/23 00:56 lactose Allergy Diarrhea Verified 09/02/23 00:56 Active Medications: Current Medications Acetaminophen (Acetaminophen 325 Mg Tablet) 650 mg PO Q6H PRN PRN Reason: Pain, Mild (Pain Scale 1-3) Baclofen (Baclofen 10 Mg Tablet) 10 mg PO DAILY [facility] Last Admin: 09/19/23 09:42 Dose: Not Given Cyanocobalamin (Cyanocobalamin (Vitamin B-12) 1,000 Mcg Tablet) 1,000 mcg PO DAILY [facility] Last Admin: 09/19/23 09:43 Dose: Not Given Docusate Sodium (Docusate Sodium 100 Mg Capsule) 100 mg PO BID [facility] Last Admin: 09/19/23 20:10 Dose: Not Given Enoxaparin Sodium (Enoxaparin Sodium 40 Mg/0.4 Ml Syringe) 40 mg SUBCUT Q24H [facility] Last Admin: 09/19/23 20:04 Dose: 40 mg Ferrous Sulfate (Ferrous Sulfate 324 Mg Tablet.) 324 mg PO DAILY [facility] Last Admin: 09/19/23 09:43 Dose: Not Given Folic Acid (Folic Acid 1 Mg Tablet) 1 mg PO DAILY [facility] Last Admin: 09/19/23 09:43 Dose: Not Given Gabapentin (Gabapentin 100 Mg Capsule) 200 mg PO DAILY [facility] Last Admin: 09/19/23 09:43 Dose: Not Given Gabapentin (Gabapentin 300 Mg Capsule) 300 mg PO BEDTIME [facility] Last Admin: 09/19/23 20:11 Dose: Not Given Piperacillin Sod/Tazobactam (Sod 4.5 gm/ Sodium Chloride) 100 mls @ 200 mls/hr IV Q6H [facility] Last Infusion: 09/19/23 18:45 Dose: Infused Vancomycin HCl 750 mg/ Sodium (Chloride) 265 mls @ 265 mls/hr IV Q12H [facility] Last Infusion: 09/19/23 12:35 Dose: Infused Lactated Ringer's (Lr) 1,000 mls @ 80 mls/hr IVCONT .[id number] [facility] Last Infusion: 09/19/23 18:45 Dose: 80 mls/hr Levothyroxine Sodium (Levothyroxine Sodium 100 Mcg Tablet) 100 mcg PO DAILY@0600 [facility] Last Admin: 09/19/23 09:42 Dose: Not Given Lidocaine (Lidocaine 4 % Patch Adh..Patch) 2 patch TRANSDERMA DAILY [facility]; Protocol Last Admin: 09/19/23 10:36 Dose: 2 patch Loratadine (Loratadine 10 Mg Tablet) 10 mg PO DAILY [facility] Last Admin: 09/19/23 09:43 Dose: Not Given Melatonin (Melatonin 3 Mg Tablet) 6 mg PO BEDTIME PRN PRN Reason: Insomnia Multivitamins/Vitamin C (Multivitamin Tablet) 1 tab PO Q48H [facility] Last Admin: 09/19/23 09:44 Dose: Not Given Ondansetron HCl (Ondansetron Hcl 4 Mg/2 Ml Vial) 4 mg IVPUSH Q8H PRN PRN Reason: Nausea and Vomiting Pharmacy Consult (Consult Rx Vancomycin Dosing) 1 each MISCELLANE DAILY PRN PRN Reason: Consult order Polyethylene Glycol (Polyethylene Glycol 3350 17 Gm Powd.Pack) 17 gm PO DAILY PRN PRN Reason: Constipation Sodium Chloride (0.9 % Sodium Chloride Flush 3 Ml Syringe) 3 ml IVFLUSH QSHIFT [facility] Last Admin: 09/19/23 15:26 Dose: Not Given Vitamin D (Cholecalciferol (Vitamin D3) 25 Mcg Tablet) 25 mcg PO Q48H [facility] Last Admin: 09/19/23 09:43 Dose: Not Given Home Medications Medication Instructions Recorded Confirmed Last Taken Type cholecalciferol (vitamin D3) 25 25 mcg PO Q OTHER DAY 06/19/23 09/18/23 09/18/23 History mcg (1,000 unit) capsule cyanocobalamin (vitamin B-12) 1,000 mcg PO DAILY 06/19/23 09/18/23 09/18/23 History 1,000 mcg tablet docusate sodium 100 mg capsule 100 mg PO BID Constipation 06/19/23 09/18/23 09/18/23 History lidocaine 4 % topical patch 1 patch topical DAILY knee pain 06/19/23 09/18/23 09/18/23 History multivitamin 1 tab PO Q OTHER DAY 06/19/23 09/18/23 09/17/23 History polyethylene glycol 3350 17 gram 17 g PO DAILY PRN Constipation 06/19/23 09/18/23 09/18/23 History oral powder packet (Miralax) gabapentin 100 mg capsule 200 mg PO DAILY 09/02/23 09/18/23 09/18/23 History acetaminophen 325 mg tablet 650 mg PO Q6H PRN Pain 09/18/23 09/18/23 09/18/23 History cetirizine 10 mg tablet 10 mg PO DAILY 09/18/23 09/18/23 09/18/23 History Physical Exam Vital Signs: Vital Signs: Last Vital Signs Temp 97.4 F 09/19/23 19:49 Pulse 96 09/19/23 19:49 Resp 18 09/19/23 19:49 BP 140/68 H 09/19/23 19:49 Pulse Ox 94 09/19/23 19:49 O2 Del Method Room Air 09/19/23 19:49 BMI result Body Mass Index 19.5 Const: General: cooperative HEENT: Head: Yes normal to inspection Face and sinus: Yes normal facial exam Mouth: Normal oral and palatal mucosa present Teeth and gingiva: dentition normal Eyes: General: appearance normal, both eyes and all related structures Pupils: Equal, round and reactive pupils present Resp: Effort & Inspection: normal respiratory effort Cardio: Rate: regular rate Rhythm: regular rhythm GI: Palpation (GI): Soft to palpation and nontender : General: Yes no CVA tenderness Back/Spine/Pelvis: Back: no CVA tenderness Skin: General skin exam: no rashes or lesions noted Neuro: General: moves all extremities Cranial nerves: Yes Equal, round and reactive pupils present Extrem: Other: doesnt speak Psych: Appearance: grossly normal Results Labs 09/19/23 05:02 09/19/23 05:02 Labs: Short CBC 09/19/23 Range/Units 05:02 WBC 16.6 H (4.8-10.8) X10*3/uL Hgb 10.7 L (12.0-16.0) g/dl Hct 34.0 L (37.0-47.0) % Plt Count 512 H (160-400) X10*3/uL BMP 09/19/23 05:02 Sodium 141 Potassium 3.4 Chloride 106 Carbon Dioxide 25 BUN 11 Creatinine 0.51 Calcium 9.9 D Microbiology Microbiology Results: Microbiology 09/18/23 15:47 Blood - Venous Blood Culture - Preliminary No growth after 24 hours. 09/18/23 15:06 Blood - Venous Blood Culture - Preliminary No growth after 24 hours. Assessment and Plan (1) Groin fluid collection: Status: Acute (2) Fever: Status: Acute She has fever and leukocytosis with mildly elevated LFTs and groin fluid collection. There are no other suspicious sites and patient keeps coming back with fever. It may be due to idiopathic reasons such as mucus plugging but rule out again abdomen and hip source. Plan Would continue Vancomycin and Zosyn for now cover possible hip. Would check tagged WBC scan and see especially since leukocytosis if suspicious area.
[2023-09-19 23:51] VITALS: BP 120/62; PULSE 91; RESP 18; TEMP 36.2; O2SAT 94
[2023-09-20 03:44] VITALS: BP 116/59; PULSE 93; RESP 18; TEMP 36.1; O2SAT 95
[2023-09-20] MEDS: Lactated Ringers 1,000 ML 80 ML IVCONT ×2 (04:54→20:23)
[2023-09-20] MEDS: Piperacillin Sodium/Tazobactam 4.5 GM in 0.9 % Sodium Chloride 100 ML IV ×4 (05:27→23:28)
[2023-09-20 06:46] VITALS: BP 122/62; PULSE 90; RESP 18; TEMP 36.6; O2SAT 95
[2023-09-20 08:33] LABS: Vancomycin Trough 12.9 mcg/mL (10.0-20.0)
[2023-09-20 08:34] LABS: Creatinine Clr Calc Pharmacy 91.6; Estimated Glomerular Filt Rate > 60
[2023-09-20] MEDS: vancomycin HCL 750 MG in 0.9 % Sodium Chloride 250 ML 265 MG IV ×2 (09:24→22:12)
[2023-09-20] MEDS: Lidocaine 4 % Patch ADH..PATCH 2 PATCH TRANSDERMA (09:25)
--- NOTE | 2023-09-20 10:20 | HO.PM.IMPN ---
Subjective Subjective Date of Service: 09/20/23 Review of Systems Follow up SIRS nonverbal, bedbound patient no fevers overnight Physical Exam Vital Signs: Vital Signs: Last Vital Signs Temp 98 F 09/20/23 06:46 Pulse 90 09/20/23 06:46 Resp 18 09/20/23 06:46 BP 122/62 09/20/23 06:46 Pulse Ox 95 09/20/23 06:46 O2 Del Method Room Air 09/20/23 06:46 BMI result Body Mass Index 19.5 Appearing in no acute distress lung sounds are clear to auscultation heart regular rate rhythm, clear S1, S2 positive bowel sounds, abdomen is soft, nontender neuro patient is alert x3, no focal deficits Objective Data Active Medications Acetaminophen (Acetaminophen 325 Mg Tablet) 650 mg PO Q6H PRN PRN Reason: Pain, Mild (Pain Scale 1-3) Baclofen (Baclofen 10 Mg Tablet) 10 mg PO DAILY [facility] Last Admin: 09/20/23 07:14 Dose: Not Given Documented By: ALISON Non-Admin Reason: NPO Cyanocobalamin (Cyanocobalamin (Vitamin B-12) 1,000 Mcg Tablet) 1,000 mcg PO DAILY [facility] Last Admin: 09/20/23 07:14 Dose: Not Given Documented By: ALISON Non-Admin Reason: NPO Docusate Sodium (Docusate Sodium 100 Mg Capsule) 100 mg PO BID [facility] Last Admin: 09/20/23 07:14 Dose: Not Given Documented By: ALISON Non-Admin Reason: NPO Enoxaparin Sodium (Enoxaparin Sodium 40 Mg/0.4 Ml Syringe) 40 mg SUBCUT Q24H [facility] Last Admin: 09/19/23 20:04 Dose: 40 mg Documented By: YADI Ferrous Sulfate (Ferrous Sulfate 324 Mg Tablet.Dr) 324 mg PO DAILY [facility] Last Admin: 09/20/23 07:14 Dose: Not Given Documented By: ALISON Non-Admin Reason: NPO Folic Acid (Folic Acid 1 Mg Tablet) 1 mg PO DAILY [facility] Last Admin: 09/20/23 07:15 Dose: Not Given Documented By: ALISON Non-Admin Reason: NPO Gabapentin (Gabapentin 100 Mg Capsule) 200 mg PO DAILY [facility] Last Admin: 09/20/23 07:15 Dose: Not Given Documented By: ALISON Non-Admin Reason: NPO Gabapentin (Gabapentin 300 Mg Capsule) 300 mg PO BEDTIME [facility] Last Admin: 09/19/23 20:11 Dose: Not Given Documented By: YADI Non-Admin Reason: NPO Piperacillin Sod/Tazobactam (Sod 4.5 gm/ Sodium Chloride) 100 mls @ 200 mls/hr IV Q6H [facility] Last Infusion: 09/20/23 06:37 Dose: Infused Documented By: YADI Vancomycin HCl 750 mg/ Sodium (Chloride) 265 mls @ 265 mls/hr IV Q12H [facility] Last Admin: 09/20/23 09:24 Dose: 265 mls/hr Documented By: ALISON Lactated Ringer's (Lr) 1,000 mls @ 80 mls/hr IVCONT .[id number] [facility] Last Admin: 09/20/23 10:10 Dose: Not Given Documented By: ALISON Non-Admin Reason: IV Running Levothyroxine Sodium (Levothyroxine Sodium 100 Mcg Tablet) 100 mcg PO DAILY@0600 [facility] Last Admin: 09/20/23 05:33 Dose: Not Given Documented By: YADI Non-Admin Reason: NPO Lidocaine (Lidocaine 4 % Patch Adh..Patch) 2 patch TRANSDERMA DAILY [facility]; Protocol Last Admin: 09/20/23 09:25 Dose: 2 patch Documented By: ALISON Loratadine (Loratadine 10 Mg Tablet) 10 mg PO DAILY [facility] Last Admin: 09/20/23 07:15 Dose: Not Given Documented By: ALISON Non-Admin Reason: NPO Melatonin (Melatonin 3 Mg Tablet) 6 mg PO BEDTIME PRN PRN Reason: Insomnia Multivitamins/Vitamin C (Multivitamin Tablet) 1 tab PO Q48H [facility] Last Admin: 09/19/23 09:44 Dose: Not Given Documented By: ELIZABETH Non-Admin Reason: NPO Ondansetron HCl (Ondansetron Hcl 4 Mg/2 Ml Vial) 4 mg IVPUSH Q8H PRN PRN Reason: Nausea and Vomiting Pharmacy Consult (Consult Rx Vancomycin Dosing) 1 each MISCELLANE DAILY PRN PRN Reason: Consult order Polyethylene Glycol (Polyethylene Glycol 3350 17 Gm Powd.Pack) 17 gm PO DAILY PRN PRN Reason: Constipation Sodium Chloride (0.9 % Sodium Chloride Flush 3 Ml Syringe) 3 ml IVFLUSH QSHIFT [facility] Last Admin: 09/20/23 07:14 Dose: Not Given Documented By: ALISON Non-Admin Reason: IV Running Vitamin D (Cholecalciferol (Vitamin D3) 25 Mcg Tablet) 25 mcg PO Q48H [facility] Last Admin: 09/19/23 09:43 Dose: Not Given Documented By: ELIZABETH Non-Admin Reason: NPO Labs 09/19/23 05:02 09/20/23 07:59 Labs: Laboratory Results - last 24 hr 09/20/23 07:59 Hold Purple Top SEE NOTE Estim Creat Clear Calc 91.6 Estimated GFR > 60 Vancomycin Trough 12.9 Microbiology Microbiology Results: Microbiology 09/18/23 15:47 Blood Culture - Preliminary Blood - Venous No growth after 24 hours. 09/18/23 15:06 Blood Culture - Preliminary Blood - Venous No growth after 24 hours. Assessment and Plan (1) Fever: Status: Acute Plan This is a 58-year-old female with history of hypothyroidism, advanced dementia minimally verbal at baseline, mood disorder, complete heart block status post ppm, history of MRSA and osteomyelitis of the right hip who was sent to the ER for evaluation of altered mentation and fevers. SIRS+ , unclear etiology chest CT not show any consolidation or effusion UA not showing acute infection blood cultures neg after 24 hours Infectious Disease follwoing>rec WBC scan, ordered continue empiric IV antibiotics. Dysphagia pureed diet Hypothyroidism. On Synthroid Dementia. Maintain sleep-wake cycle Sacral decubitus wound. Wound Care consult pending Frequent change in position DVT prophylaxis: Lovenox DNR/DNI. Attending Dr. Geller continued hospital stay for tx of SIRS requiring IV abx until blood cultures return Quality Stroke Does the patient have a stroke diagnosis?: No VTE Prior VTE?: No VTE Risk Level:: Medical - moderate - high VTE Device Contraindication: Treatment Not Indicated VTE Drug Contraindication: N/A - Med Ordered
--- NOTE | 2023-09-20 10:23 | MHC.SLORD ---
Speech Language Pathology Order Status: RESPIRATORY MANAGER consult placed for dysphagia 09/19. Per hospitalist on 09/20, RESPIRATORY MANAGER evaluation not needed. Patient placed on baseline diet of pureed solids (NDD1) and thin liquids by WEB MOBILE DESIGNER. This is consistent w/ RESPIRATORY MANAGER recommendation during recent hospitalization 09/02-09/04. Current RESPIRATORY MANAGER consultation cx per WEB MOBILE DESIGNER.
--- NOTE | 2023-09-20 10:56 | MHC.CM.PN ---
Addendum entered by Sanjana William RN 09/20/23 11:08: PER HOSPITALIST PT WILL REMAIN INPT OVERNIGHT AND PLAN FOR DC TOMORROW 09/21 Original Note: ANTIC PT MAY DC HOME W/RESUMP OF 24HR CARE/[facility] AND [facility] [facility] 67DAY HRS AND 14NOC HRS AFTER IMAGING IS DONE AND PENDING RESULTS, PT WILL NEED BLS TRANSPORT HOME.
[2023-09-20] MEDS: Acetaminophen 325 MG TABLET 650 MG PO ×2 (10:59→22:14)
[2023-09-20 12:00] VITALS: BP 132/74; PULSE 68; RESP 16; TEMP 36.1; O2SAT 94
--- NOTE | 2023-09-20 13:40 | MHC.CLN ---
F/U DIET=PUREE. ENSURE MAX TID PROVIDES 450 KCALS, 90 G PROTEIN. SKIN WITH DTI LEFT ANKLE AND UNSTAGEABLE AREA TO COCCYX. SUPPLEMENT TO PROMOTE WOUND HEALING. FOLLOW FOR DIET TOLERANCE, INTAKE AND WOUND HEALING SEE ALSO FULL NUTRITION ASSESSMENT
[2023-09-20 15:15] VITALS: BP 133/64; PULSE 83; RESP 17; TEMP 36.6; O2SAT 95
[2023-09-20 19:05] VITALS: BP 107/56; PULSE 86; RESP 17; TEMP 36.4; O2SAT 94
[2023-09-20] MEDS: Enoxaparin Sodium 40 MG/0.4 ML SYRINGE SUBCUT (20:13)
[2023-09-20] MEDS: Gabapentin 300 MG CAPSULE PO (20:17)
[2023-09-20] MEDS: Docusate Sodium 100 MG CAPSULE PO (20:17)
[2023-09-20 23:30] VITALS: BP 125/67; PULSE 88; RESP 17; TEMP 36.1; O2SAT 96
[2023-09-21 03:22] VITALS: BP 121/60; PULSE 77; RESP 17; TEMP 36.7; O2SAT 96
[2023-09-21] MEDS: Piperacillin Sodium/Tazobactam 4.5 GM in 0.9 % Sodium Chloride 100 ML IV ×2 (06:01→10:31)
[2023-09-21] MEDS: Lactated Ringers 1,000 ML 80 ML IVCONT (06:04)
[2023-09-21] MEDS: Levothyroxine Sodium 100 MCG TABLET PO (06:05)
[2023-09-21 06:46] VITALS: BP 125/57; PULSE 77; RESP 17; TEMP 35.9; O2SAT 95
[2023-09-21 06:56] LABS: Anion Gap 12 (12-20); Blood Urea Nitrogen 8 mg/dL (9-16); Calcium 8.9 mg/dL (8.4-10.2); Carbon Dioxide 28 mmol/L (22-29); Chloride 103 mmol/L (96-108); Creatinine Clr Calc Pharmacy 97.4; Estimated Glomerular Filt Rate > 60; Glucose Random 103 mg/dL (60-115); Potassium 2.9 mmol/L (3.3-5.1); Sodium 140 mmol/L (135-145)
[2023-09-21 08:18] LABS: Hematocrit 32.4 % (37.0-47.0); Hemoglobin 10.4 g/dl (12.0-16.0); Mean Corpuscular HGB Conc 32.1 g/dl (31.0-35.0); Mean Corpuscular Hemoglobin 29.1 pg (27.0-33.0); Mean Corpuscular Volume 90.5 fL (80.0-98.0); Platelet Count 560 X10*3/uL (160-400); Red Blood Count 3.58 X10*6/uL (4.20-5.50); Red Cell Distribution Width 13.8 % (11.0-16.0)
[2023-09-21] MEDS: vancomycin HCL 750 MG in 0.9 % Sodium Chloride 250 ML 265 MG IV (09:08)
[2023-09-21] MEDS: Folic Acid 1 MG TABLET PO (09:09)
[2023-09-21] MEDS: Potassium Chloride Packet 20 MEQ PACKET 40 MEQ PO ×2 (09:09→15:25)
[2023-09-21] MEDS: Docusate Sodium 100 MG CAPSULE PO (09:09)
[2023-09-21] MEDS: Cholecalciferol (Vitamin D3) 25 MCG TABLET PO (09:09)
[2023-09-21] MEDS: Loratadine 10 MG TABLET PO (09:09)
[2023-09-21] MEDS: Baclofen 10 MG TABLET PO (09:09)
[2023-09-21] MEDS: Ferrous Sulfate 324 MG TABLET.DR PO (09:09)
[2023-09-21] MEDS: Multivitamin TABLET 1 TAB PO (09:09)
[2023-09-21] MEDS: Cyanocobalamin (Vitamin B-12) 1,000 MCG TABLET 1000 MCG PO (09:09)
[2023-09-21] MEDS: Gabapentin 100 MG CAPSULE 200 MG PO (09:09)
[2023-09-21] MEDS: Lidocaine 4 % Patch ADH..PATCH 2 PATCH TRANSDERMA (09:10)
--- NOTE | 2023-09-21 11:41 | MHC.CM.PN ---
Addendum entered by Sanjana William, RN 09/21/23 13:57: REPEAT LABS TO BE DRAWN AT 3PM, IF W/IN ACCEPTABLE LIMITS PT WILL DC HOME VIA BLS TRANSPORT AT 5PM Original Note: ANTIC PT WILL DC HOME LATER TODAY W/RESUMP OF [facility] AND PCB DESIGN ENGINEER HRS PENDING RESULTS OF WBC [facility] FOR BLS TRANSPORT
[2023-09-21] MEDS: Acetaminophen 325 MG TABLET 650 MG PO (11:45)
[2023-09-21 12:00] VITALS: TEMP 35.5
--- NOTE | 2023-09-21 12:36 | HO.WOUND ---
Wound Consult: Initial 89yr old female admitted to [facility] on? No09/18/23 20:16 - See progress notes and H&P for detailed history. Coccyx Etiology: Previously documented as stage 3 pressure Injury - Present on Admission Pt follows in Wound clinic for care and treatment per her this wound is significantly improved the wound was considerably larger in size per statement. Measurements: see chart details Wound Bed: red moist tissue Drainage / Odor: No odor noted - moderate amount of clear serous drainage Edges: ? macerated and epibole Pascale wound: MASD-IAD (Moisture Associated Skin Damage - Incontinence Associated Dermatitis) red blanchable tissue with maceration noted and scattered areas of partial thickness tissue loss ? No Induration, No Fluctuance, No Erythema, No Warmth Pain: Denies pain Goals of Treatment: ? Off Load Pressure and Aliginate to packing and continue to outpt wound clinic follow up Of note there was documentation by direct care team for Left Ankle DTI - Both feet and ankles were assessed no Pressure injuries noted. There are areas of intact tissue that are red well defined areas but remains blanchable throughout and not consistent with pressure injury. Recommendations: 1. Turn and Reposition every 2 hours and as needed for patient comfort consider use of wedges available in the storeroom. 2. Off Load all bony prominences with use of pillows, wedges and heel boots. 3. Monitor for incontinence and moisture control. 4. Provide adequate and supplemental nutrition. 5. Continue low air loss mattress. 6. Coccyx - Off Load Pressure - Cleanse with NS. Pack cut strip of Durafiber AG (silver alginate) to provide an antimicrobial effect, creates a moist wound healing environment, and absorbs excess drainage. Cover with a bordered foam dressing to protect. Change daily. Re-consult wound care Nurse for wound deterioration or wound changes.
[2023-09-21 12:37] LABS: Magnesium 1.6 mg/dL (1.6-2.6)
[2023-09-21] MEDS: Magnesium Sulfate/H2O 2 GM/50 ML PIGGYBACK IV (13:55)
--- NOTE | 2023-09-21 14:26 | P.DS_ITS ---
DS: Providers Provider Date of Service: 09/21/23 Date of admission: 09/18/23 20:16 Date of discharge: 09/21/23 Primary care physician: Marry Campuzano MD Consults: 09/18/23 23:55 Consult to Infectious Diseases Routine Consulting Provider: [facility] Infectious Disease Reason for consultation: SIRS+ ; unclear source 09/20/23 10:23 Consult to Wound Care Routine Reason for consultation: decubitus ulcer Attending physician on discharge: Bull Geller Discharging clinician: Priya Clayton DS: Diagnosis Discharge Diagnosis (1) Fever: Status: Acute DS: Summary Hospital Course Hospital Course: From H&P on day of admission This is a 58-year-old female with history of hypothyroidism, advanced dementia minimally verbal at baseline, mood disorder, complete heart block status post ppm, history of MRSA and osteomyelitis of the right hip who was sent to the ER for evaluation of fevers. Unable to obtain history from the patient. History obtained from ER provider and chart review. As per the patient's , she was noted to have fever and was sent to the ER for further evaluation. He confirms that patient is DNR/DNI. He is the caregiver of the patient. Unable to obtain review of systems In the emergency department, patient was found to be septic SIRS patient initially met sirs criteria with fever and leukocytosis. she was started on empiric antibiotics. no source of infection has been identified. chest CT not show any consolidation or effusion. CT of abdomen/pelvis showed no evidence of acute intraabdominal pathology. Right hip included in imaging shows chronic changes. UA negative for acute infection Flu, RSV, covid negative. blood cultures negative x 48 hours. She was seen by Infectious Disease who recommended WBC scan which did not show any evidence of active infection at any site. Patient has remained afebrile since 09/18 discussed with ID no need for antibiotics on discharge. chronic cocxyx pressure injury -present on admission. overall has improved significantly from previous. seen by wound care nurse, packed with silver alginate, covered with bordered foam dressing. Continue outpatient follow up in wound care clinic Hypokalemia, given replacement. repeat labs improved No change to chronic medications Time Attestation Discharge coordination time: Greater than 30 minutes Quality: Safe Use of Opioids Does Pt have an Active Cancer Diagnosis on the Problem List?: No Quality: Stroke Does the patient have a stroke diagnosis?: No Physical Exam Vital Signs: Vital Signs: Last Vital Signs Temp 96 F L 09/21/23 12:00 Pulse 77 09/21/23 06:46 Resp 17 09/21/23 06:46 BP 125/57 L 09/21/23 06:46 Pulse Ox 95 09/21/23 06:46 O2 Del Method Room Air 09/21/23 12:00 BMI result Body Mass Index 19.5 Const: Other: bedbound and primarily nonverbal at baseline, awake, alert General: comfortable and no acute distress Nutritional Appearance: thin Resp: Effort & Inspection: normal respiratory effort, no respiratory distress and no use of accessory muscles GI: Inspection: No distended Palpation (GI): Soft to palpation DS: Data Data Completed and Pending Completed studies during hospitalization [Text1]: Procedures Drainage of Right Upper Leg Muscle, Percutaneous Approach (06/19/23) Insertion of Infusion Device into Superior Vena Cava, Percutaneous Approach (06/19/23) Insertion of Pacemaker Lead into Right Atrium, Percutaneous Approach (06/09/21) Insertion of Pacemaker Lead into Right Ventricle, Percutaneous Approach (06/09/21) Insertion of Pacemaker, Dual Chamber into Chest Subcutaneous Tissue and Fascia, Open Approach (06/09/21) Removal of Synthetic Substitute from Right Hip Joint, Femoral Surface, Open Approach (08/03/21) Removal of Synthetic Substitute from Right Hip Joint, Open Approach (07/23/21) Replacement of Right Hip Joint with Synthetic Substitute, Uncemented, Open Approach (07/23/21) Replacement of Right Hip Joint, Femoral Surface with Synthetic Substitute, Uncemented, Open Approach (06/09/21) Revision of Synthetic Substitute in Right Hip Joint, External Approach (07/07/21) Revision of Synthetic Substitute in Right Hip Joint, Femoral Surface, Open Approach (07/20/21) Transfusion of Nonautologous Red Blood Cells into Peripheral Vein, Percutaneous Approach (08/03/21) Ultrasonography of Superior Vena Cava, Guidance (06/19/23) Labs on day of discharge: Laboratory Results - last 24 hr 09/18/23 09/21/23 09/21/23 19:55 06:17 06:23 WBC 10.0 RBC 3.58 L Hgb 10.4 L Hct 32.4 L MCV 90.5 MCH 29.1 MCHC 32.1 RDW 13.8 Plt Count 560 H MPV 10.0 Absolute Nucleated RBC 0.000 Nucleated RBC % (auto) 0.0 Hold Purple Top SEE NOTE Sodium 140 Potassium 2.9 L Chloride 103 Carbon Dioxide 28 Anion Gap 12 BUN 8 L Creatinine 0.48 L Estim Creat Clear Calc 97.4 Estimated GFR > 60 Random Glucose 103 Calcium 8.9 D Magnesium 1.6 Prolactin 7.0 Preliminary micro results at discharge 09/18/23 15:47 Blood Culture - Preliminary Blood - Venous No growth after 48 hours. 09/18/23 15:06 Blood Culture - Preliminary Blood - Venous No growth after 48 hours. Discharge Plan Discharge Anticipated Discharge Date/Time: 09/21/23 14:38 Patient Disposition: Home Health Service Discharge Diagnosis: SIRS hypokalemia Referrals: [facility] [Outside] - 1 Day (RESUMPTION OF CARE) Marry Campuzano MD [Primary Care Provider] - 1 Week Discharge Medications: Continued ferrous sulfate 325 mg (65 mg iron) tablet,delayed release (DR/EC) 325 mg PO DAILY Qty: 90 0RF levothyroxine 100 mcg tablet 100 mcg PO DAILY Qty: 90 3RF baclofen 10 mg tablet 10 mg PO DAILY Qty: 90 3RF folic acid 1 mg tablet 1 mg PO DAILY Qty: 90 3RF gabapentin 100 mg capsule 200 mg PO DAILY acetaminophen 325 mg Tablet 650 mg PO Q6H PRN (Reason: Pain) cetirizine 10 mg tablet 10 mg PO DAILY multivitamin Tablet 1 tab PO Q OTHER DAY Rx Instructions: On days not taking D3 cyanocobalamin (vitamin B-12) 1,000 mcg tablet 1,000 mcg PO DAILY Rx Instructions: On days not taking multivitamin polyethylene glycol 3350 [Miralax] 17 gram powder in packet 17 g PO DAILY PRN (Reason: Constipation) docusate sodium 100 mg capsule 100 mg PO BID cholecalciferol (vitamin D3) 25 mcg (1,000 unit) capsule 25 mcg PO Q OTHER DAY Rx Instructions: On days not taking multivitamin lidocaine 4 % Adhesive Patch,Medicated 1 patch TOPICAL DAILY gabapentin 300 mg capsule 300 mg PO BEDTIME Qty: 90 3RF doxycycline hyclate 100 mg tablet 100 mg PO BID 30 Days Qty: 60 5RF No Action (DME) roho seat cushion See Rx Instructions .Route .MEDSUPPLY Qty: 1 0RF Rx Instructions: As directed (DME) powered recliner chair See Rx Instructions .Route .MEDSUPPLY Qty: 1 0RF Rx Instructions: As directed (DME) Air mattress overlay Misc See Rx Instructions .Route Qty: 1 0RF Rx Instructions: As directed (DME) Adult disposable briefs Large See Rx Instructions .Route .MEDSUPPLY Qty: 200 6RF Rx Instructions: Pull-ups , adult disposable briefs. (DME) body wipes See Rx Instructions .Route .MEDSUPPLY Qty: 1200 3RF Rx Instructions: As directed (DME) disposable bed pads See Rx Instructions .Route .MEDSUPPLY Qty: 100 5RF Rx Instructions: As directed (DME) disposable gloves [Vinyl Gloves] Misc See Rx Instructions .Route Qty: 200 5RF Rx Instructions: As directed (DME) adhesive tape [[employer]] 1 X 10 -yard tape See Rx Instructions .Route Qty: 2 0RF Rx Instructions: As directed (DME) adhesive tape [[employer]] 1 X 10 -yard tape See Rx Instructions .Route Qty: 2 0RF Rx Instructions: As directed (DME) gauze bandage 4 X 4 bandage See Rx Instructions .Route Qty: 1200 0RF Rx Instructions: As directed (DME) gauze bandage 4 X 4 bandage See Rx Instructions .Route Qty: 1200 0RF Rx Instructions: As directed (DME) adhesive tape 1 X 10 -yard tape See Rx Instructions .Route Qty: 2 0RF Rx Instructions: As directed (DME) DuoDERM CGF Dressing 8 X 12 bandage See Rx Instructions .Route Qty: 5 0RF Rx Instructions: As directed (DME) nebulizers Misc See Rx Instructions .Route Qty: 1 0RF Rx Instructions: 1 bid (DME) gauze bandage 4 X 4 bandage See Rx Instructions .Route Qty: 1200 3RF Rx Instructions: as directed (DME) gauze bandage [Band-Aid Gauze Pads] 2 X 2 bandage See Rx Instructions .Route Qty: 2400 2RF Rx Instructions: As directed Discharge Orders: Discharge Order (Routine); Ordered 09/21/23 Ordered By: Priya Clayton Activity on Discharge: As tolerated Stand Alone Forms: Patient Portal Discharge page Care Plan Goals: see below Health Concerns: fever low potassium levels Plan of Treatment: fever has resolved. no source of infection was found follow up for chronic wounds in wound care center; continue daily wound care and dressing changes outpatient follow up with PCP as needed Assessment: see discharge summary
[2023-09-21 14:46] LABS: Potassium 3.4 mmol/L (3.3-5.1)
[2023-09-21 15:13] VITALS: BP 104/55; PULSE 92; RESP 17; TEMP 36.2; O2SAT 95
--- NOTE | 2023-09-24 14:29 | P.CDIM_ITS ---
PROVIDER RESPONSE TEXT: To clarify, the appropriate diagnosis supported by the clinical indicators: Underweight QUERY TEXT: PHYSICIAN'S DOCUMENTATION REQUEST Date of Query: 09/20/2023 12:48 PM EST Patient Name: Gonzalez Santiago Admit Date: 09/19/2023 Dear Chichi Khan, A review of the medical record indicates additional documentation may be needed. Please review below and update the documentation accordingly. Clinical Indicators: Height: ( ) Weight: ( ) BMI: ( ) Other Clinical Notes Supporting Significance of the BMI: Per Clinical Nutrition Assessment 09/19/23: moderately malnourished in the context of chronic illness, significant weight loss x 11 months with mild depletion of body fat and muscle mass currently NPO If possible, please provide an associated diagnosis related to the abnormal BMI, such as: Underweight Weight loss Cachexia Anorexia Moderate Protein Calorie Malnutrition Other (explain) Clinically unable to determine (explain) Thank you, Rona Casanova RN Use of terms such as suspected, likely, concern for, or probable (associated with a specific diagnosi s that is being evaluated, monitored, or treated as if it exists) are acceptable and can be coded in the inpatient se tting, when documented at the time of discharge. Please use your independent medical judgment in providing your response. THIS QUERY IS PART OF THE PERMANENT MEDICAL RECORD
== END 2023-09-21 17:50 | disposition home health service (06) | DRG 593 ==
LOC: HO.ED 17:35 → HO.EDOVER 20:34 → HO.S3 21:08
PROVIDERS: Nurse Practitioner Acute Care; Admitting Provider Student in an Organized Health Care Education/Training Program; Emergency Provider Student in an Organized Health Care Education/Training Program; PCP Internal Medicine; Visit Provider Physician Assistant Medical
DX: L89.150 Pressure ulcer of sacral region, unstageable (principal); I44.2 Atrioventricular block, complete; Z68.1 Body mass index [BMI] 19.9 or less, adult; R65.10 Systemic inflammatory response syndrome (SIRS) of non-infectious origin without acute organ dysfunction; E87.6 Hypokalemia; F03.90 Unspecified dementia, unspecified severity, without behavioral disturbance, psychotic disturbance, mood disturbance, and anxiety; E03.9 Hypothyroidism, unspecified; R13.10 Dysphagia, unspecified; Z66 Do not resuscitate; Z74.01 Bed confinement status; Z20.822 Contact with and (suspected) exposure to COVID-19; Z87.891 Personal history of nicotine dependence; R63.6 Underweight; Z95.0 Presence of cardiac pacemaker; Z79.890 Hormone replacement therapy; Z79.899 Other long term (current) drug therapy
CPT/HCPCS: 0241U; 36415; 71045; 71260; 74177; 78306; 80048; 80053; 80202; 81001; 82565; 83605; 83735; 84132; 84146; 85025; 85027; 85610; 87040; 87635; 99285; A9569; J1650; J2543; J3370; J3371; J3475; Q9967

== ENCOUNTER → 2023-09-18 20:16 | Outpatient (BNV) | payer OTHER, SELFPAY | PROVIDERS: Admitting Provider Student in an Organized Health Care Education/Training Program; Emergency Provider Student in an Organized Health Care Education/Training Program; Visit Provider Student in an Organized Health Care Education/Training Program | DX: R50.9 Fever, unspecified (principal) | CPT/HCPCS: 99222; 99232; 99239 ==

== ENCOUNTER → 2023-09-18 20:16 | Outpatient (BNV) | payer OTHER, SELFPAY | PROVIDERS: Admitting Provider Student in an Organized Health Care Education/Training Program; Emergency Provider Student in an Organized Health Care Education/Training Program; PCP Internal Medicine; Visit Provider Internal Medicine | DX: R18.8 Other ascites (principal); R50.9 Fever, unspecified | CPT/HCPCS: 99222 ==

== ENCOUNTER 2023-10-18 08:46 | Outpatient (AMB) | payer OTHER, SELFPAY ==
--- NOTE | 2023-10-18 08:54 | MHC.PC.OV ---
Vital Signs 10/18/23 08:56 BMI Reason not done Patient refused/unable BP 94/60 Blood Pressure Location Lt brachial Position Sitting Pulse 99 Pulse Source Pulse Oximeter Temp 98.0 F Temp Source Oral Pulse Oximetry (%) 94 Oxygen Delivery Method Room Air Intake Visit Reasons: discharge from [facility] 09/22-09/29 high fevers Intake Note: Pt is here today [facility] [place] fever Allergies [place] nut Allergy (Verified 10/18/23 08:58) Unknown lactose Allergy (Verified 10/18/23 08:58) Diarrhea Medication List - Last Reconciled 10/18/23 by Marry Campuzano MD acetaminophen 650 mg PO Q6H PRN adhesive tape As directed adhesive tape ([employer]) As directed adhesive tape ([employer]) As directed [Adult disposable briefs Pull-ups , adult disposable briefs.] Air mattress overlay As directed baclofen 10 mg PO DAILY [body wipes As directed] cetirizine 10 mg PO DAILY cholecalciferol (vitamin D3) 25 mcg PO Q OTHER DAY cyanocobalamin (vitamin B-12) 1,000 mcg PO DAILY [disposable bed pads As directed] disposable gloves (Vinyl Gloves) As directed docusate sodium 100 mg PO BID ferrous sulfate 325 mg PO DAILY folic acid 1 mg PO DAILY gabapentin 200 mg PO DAILY gabapentin 300 mg PO BEDTIME gauze bandage As directed gauze bandage As directed gauze bandage as directed gauze bandage (Band-Aid Gauze Pads) As directed [Rossy lift crossover harness As directed] hydrocolloid dressing (DuoDERM CGF Dressing) As directed levothyroxine 100 mcg PO DAILY lidocaine 4% 1 patch topical DAILY multivitamin 1 tab PO Q OTHER DAY nebulizers 1 bid polyethylene glycol 3350 (Miralax) 17 grams PO DAILY PRN [powered recliner chair As directed] [roho seat cushion As directed] Tobacco use date assessed: 10/18/23 Dental Screening Dental Screen Date: 10/18/23 Did you have a dental visit in the last 12 months?: No Was dental information given to patient?: No HPI discharge from [facility] 09/22-09/29 high fevers HPI Details Pt presents for f/u hospitalization for sepsis. Pt f/u with ID and has been on chronic antibiotic therapy. Pt has advanced dementia, practical non verbal and does not ambulate. According to pt's she has not been sleeping well because of chronic LBP and knee pain. [facility] Medical History (Updated 10/18/23 @ 10:09 by Marry Campuzano MD) Dementia Osteomyelitis of right hip Protein malnutrition Decubitus ulcer, unstageable with infection Colovaginal fistula Shortness of breath Rash Elevated LFTs Pressure injury of ankle, unstageable Pressure injury of sacral region, stage 3 Unspecified open wound, right hip, initial encounter Dementia Leukocytosis (leucocytosis) Fever Preoperative cardiovascular examination Pre-op evaluation Dislocation, hip closed History of pacemaker Hip dislocation, right Closed dislocation of right hip Visit for wound check Pacemaker Symptomatic bradycardia Syncope Sinus pause Abnormal EKG Displaced fracture of right femoral neck Closed hip fracture Urinary incontinence Balance disorder Left leg weakness Dementia Memory loss PTSD (post-traumatic stress disorder) Tobacco dependence Lactose intolerance Hypothyroidism Abnormal urine odor Surgical History S/P Girdlestone procedure History of hemiarthroplasty of right hip Hx of total hip arthroplasty Status post hip hemiarthroplasty No pertinent past surgical history Family History Mother Unknown family medical history Father Unknown family medical history Social History Household Members: Spouse Housing: Apartment Housing [facility] Do you presently have visiting nurse or other home services: Yes Unable to assess alcohol history related to: Unable to respond Alcohol intake: never Comment: pt off unit Patient Tobacco Use Status: Former Tobacco user Tobacco use type: Cigarette Cigarettes Per Day: 5.0 Years Smoked: since teen years per pt e-Cigarette/Vaping Use: Never Used Second Hand Smoke Exposure: No Substance Use Type: Marijuana Advance Directives Date on File: 06/06/23 service: No Current occupational status: disabled Current occupation: rt handed Cognitive needs: Yes Hearing needs: No Vision needs: Yes Questionnaire Thrive Questionnaire Date Thrive assessed: 09/19/23 BENSON-7 AMB Questionnaire BENSON-7 Date BENSON - 7 assessed: 06/29/23 Source: Developed by Drs. Richie Parker, Reanna Thornton, Aleksander Olivera and colleagues, with an educational alcides from [employer] Review of Systems Const All systems reviewed & are unremarkable except as noted in HPI and below Reports no additional complaints Eyes Reports no additional complaints ENT Reports no additional complaints Resp Reports no additional complaints GI Reports no additional complaints Reports no additional complaints Musc Reports no additional complaints Physical exam (Primary Care) Vital Signs: Last Vital Signs Temp 98.0 F 10/18/23 08:56 Pulse 99 10/18/23 08:56 BP 94/60 10/18/23 08:56 Pulse Ox 94 10/18/23 08:56 Oxygen Delivery Method Room Air 10/18/23 08:56 Tobacco/Smoking Status: Tobacco use Status Tobacco use date assessed 10/18/23 10/18/23 09:02 Patient Tobacco Use Status Former Tobacco user 10/18/23 08:55 Tobacco use type Cigarette 10/18/23 08:55 e-Cigarette/Vaping Use Never Used 10/18/23 08:55 Thrive Assessment: Date of Thrive Assessment Date Thrive assessed 09/19/23 10/18/23 08:55 Const General: no acute distress Neck Neck: Yes supple Resp Effort & Inspection: normal respiratory effort Auscultation: clear to auscultation bilaterally Cardio Rhythm: regular rhythm Heart sounds: S1 normal heart sound present and S2 normal heart sound present GI Inspection: Yes normal to inspection Palpation (GI): Soft to palpation Percussion: Yes normal to percussion Auscultation: normal bowel sounds Neuro Other: lower extemities contracted Assessment and Plan Assessment & Plan (1) Contracture of muscle of lower extremity, bilateral: Code(s): M62.461 - Contracture of muscle, right lower leg; M62.462 - Contracture of muscle, left lower leg Plan: increase Gabapentin to 600 mg qhs (2) Osteomyelitis of right hip: Comment: R hip ORIF 06/02, MRSA infection, s/p hardware removal July 2021, f/u infectious disease Dr. Babcock chronic infection,MRSA concern Code(s): M86.9 - Osteomyelitis, unspecified Plan: f/u with ID (3) Dementia: Comment: ADVANCED, NON VERBAL Code(s): F03.90 - Unspecified dementia, unspecified severity, without behavioral disturbance, psychotic disturbance, mood disturbance, and anxiety Plan: Pt is DNR/ (4) Anemia: Code(s): D64.9 - Anemia, unspecified Plan: check Iron count Medications: Changed From gabapentin 300 mg PO BEDTIME 90 caps 3RF To gabapentin 600 mg (2 x 300 mg) PO BEDTIME 180 caps 3RF Coding Level of Care Code Est Pt Level 4 (25652) Diagnoses Contracture of muscle of lower extremity, bilateral M62.461; M62.462 Osteomyelitis of right hip M86.9 Dementia F03.90 Anemia D64.9
[2023-10-18 08:56] VITALS: BP 94/60; PULSE 99; TEMP 36.7; O2SAT 94
== END 2023-10-18 10:10 | disposition home or self-care (01) ==
LOC: HO.HMGC 08:46
PROVIDERS: PCP Internal Medicine; Visit Provider Internal Medicine
DX: M62.461 Contracture of muscle, right lower leg (principal); M62.462 Contracture of muscle, left lower leg; M86.9 Osteomyelitis, unspecified; F03.90 Unspecified dementia, unspecified severity, without behavioral disturbance, psychotic disturbance, mood disturbance, and anxiety; D64.9 Anemia, unspecified
CPT/HCPCS: 99214

== ENCOUNTER 2024-01-03 13:06 | Outpatient (AMB) | payer OTHER, SELFPAY ==
[2024-01-03 13:18] VITALS: PULSE 91; TEMP 36.4; O2SAT 99
--- NOTE | 2024-01-03 13:18 | MHC.OFFVIS ---
Intake Vital Signs 01/03/24 13:18 Weight 183 lb Pulse 91 Pulse Source Pulse Oximeter Temp 97.6 F Temp Source Oral Pulse Oximetry (%) 99 Intake Visit Reasons: f/u 6 mth,lab Allergies [place] nut Allergy (Verified 01/03/24 13:19) Unknown lactose Allergy (Verified 01/03/24 13:19) Diarrhea HPI f/u 6 mth,lab HPI Details She is here for evaluation sacral OM. Since taking po Doxycycline 100 mg bid daily she has no fever and is more alert. She is here with . [facility] Medical History Dementia Osteomyelitis of right hip Protein malnutrition Decubitus ulcer, unstageable with infection Colovaginal fistula Shortness of breath Rash Elevated LFTs Pressure injury of ankle, unstageable Pressure injury of sacral region, stage 3 Unspecified open wound, right hip, initial encounter Dementia Leukocytosis (leucocytosis) Fever Preoperative cardiovascular examination Pre-op evaluation Dislocation, hip closed History of pacemaker Hip dislocation, right Closed dislocation of right hip Visit for wound check Pacemaker Symptomatic bradycardia Syncope Sinus pause Abnormal EKG Displaced fracture of right femoral neck Closed hip fracture Urinary incontinence Balance disorder Left leg weakness Dementia Memory loss PTSD (post-traumatic stress disorder) Tobacco dependence Lactose intolerance Hypothyroidism Abnormal urine odor Surgical History S/P Girdlestone procedure History of hemiarthroplasty of right hip Hx of total hip arthroplasty Status post hip hemiarthroplasty No pertinent past surgical history Family History Mother Unknown family medical history Father Unknown family medical history Social History Household Members: Spouse Housing: Apartment Housing [facility] Do you presently have visiting nurse or other home services: Yes Unable to assess alcohol history related to: Unable to respond Alcohol intake: never Comment: pt off unit Patient Tobacco Use Status: Former Tobacco user Tobacco use type: Cigarette Cigarettes Per Day: 5.0 Years Smoked: since teen years per pt e-Cigarette/Vaping Use: Never Used Second Hand Smoke Exposure: No Substance Use Type: Marijuana Advance Directives Date on File: 06/06/23 service: No Current occupational status: disabled Current occupation: rt handed Cognitive needs: Yes Hearing needs: No Vision needs: Yes Review of Systems Const All systems reviewed & are unremarkable except as noted in HPI and below Physical Exam Vital Signs: Last Vital Signs Temp 97.6 F 01/03/24 13:18 Pulse 91 01/03/24 13:18 Pulse Ox 99 01/03/24 13:18 Const General: cooperative HEENT Head: Yes normal to inspection Mouth: Normal oral and palatal mucosa present Eyes General: appearance normal, both eyes and all related structures Pupils: Equal, round and reactive pupils present Resp Effort & Inspection: normal respiratory effort Cardio Rate: regular rate Rhythm: regular rhythm GI Palpation (GI): Soft to palpation and nontender General: Yes no CVA tenderness Back/Spine/Pelvis Back: no CVA tenderness Skin General skin exam: no rashes or lesions noted Neuro Other: alert Cranial nerves: Yes CN's II-XII intact bilaterally and Yes Equal, round and reactive pupils present Extrem General: Yes normal to inspection Psych Appearance: grossly normal Assessment & Plan Assessment & Plan (1) Osteomyelitis of right hip: Comment: She is doing better on preventive treatment for OM sacrum. Code(s): M86.9 - Osteomyelitis, unspecified Plan: Continue Doxycycline. See in six months. Script written. Medications: New doxycycline hyclate 100 mg PO BID 60 tabs 5RF 30 days Coding Level of Care Code Est Pt Level 3 (75495) Diagnoses Osteomyelitis of right hip M86.9
== END 2024-01-03 13:44 | disposition home or self-care (01) ==
LOC: HO.HID 13:06
PROVIDERS: PCP Internal Medicine; Visit Provider Internal Medicine
DX: M86.9 Osteomyelitis, unspecified (principal)
CPT/HCPCS: 99213

== ENCOUNTER → 2024-01-03 13:06 | Outpatient (BNVA) | payer OTHER, SELFPAY | PROVIDERS: PCP Internal Medicine; Visit Provider Internal Medicine | DX: M83.9 Adult osteomalacia, unspecified (principal); Z79.2 Long term (current) use of antibiotics | CPT/HCPCS: 99212 ==

== ENCOUNTER → 2024-01-04 17:00 | Outpatient (RCR) | payer OTHER, SELFPAY | END | disposition home or self-care (01) | LOC: HO.WCC 09-06 12:41 | PROVIDERS: Visit Provider Physician Assistant | DX: Z09 Encounter for follow-up examination after completed treatment for conditions other than malignant neoplasm (principal); G60.9 Hereditary and idiopathic neuropathy, unspecified; G93.40 Encephalopathy, unspecified; Z87.2 Personal history of diseases of the skin and subcutaneous tissue | CPT/HCPCS: 10140; 11042; 17250; 97597; 97602; 99202; 99212; 99213; 99214 ==

== ENCOUNTER → 2024-01-11 23:59 | Outpatient (BNV) | payer OTHER, SELFPAY | PROVIDERS: PCP Internal Medicine; Visit Provider Internal Medicine | DX: L89.153 Pressure ulcer of sacral region, stage 3 (principal) | CPT/HCPCS: G0179 ==

== ENCOUNTER 2024-04-23 14:49 | Emergency (ER) | payer OTHER, SELFPAY ==
--- NOTE | ~2024-04-23 | XR_ITS ---
EXAMINATION: XR CHEST CLINICAL INFORMATION: Altered mental status. COMPARISON: CT chest 09/18/2023. Chest radiograph 09/18/2023. TECHNIQUE: Frontal view of the chest was obtained. FINDINGS: Unchanged cardiomediastinal silhouette. Redemonstration of calcified mediastinal and hilar lymph nodes as well as thoracic aortic atherosclerotic disease. Chronic interstitial thickening. No new focal consolidative opacities. No pleural effusion. No pneumothorax. No acute osseous findings. Visualized upper abdomen is within normal limits. XR/XR chest 1V IMPRESSION: 1. No acute cardiopulmonary findings. 2. Redemonstration of calcified mediastinal and hilar lymph nodes and thoracic aortic atherosclerotic disease. 3. Chronic interstitial thickening.
--- NOTE | ~2024-04-23 | CT_ITS ---
EXAMINATION: CT HEAD WITHOUT CONTRAST CLINICAL INFORMATION: Altered mental status. COMPARISON: CT head dated 06/19/2023. TECHNIQUE: Contiguous axial imaging was performed from the skull base to vertex without intravenous administration of contrast. This CT examination was performed using dose optimization techniques as appropriate, variously including the following: *Automated exposure control *Adjustment of mA and/or kV according to patient size (this includes techniques or standardized protocols for targeted exams where dose is matched to indication/reason for exam; i.e. extremities or head) *Use of iterative reconstruction technique DLP: 714 mGy-cm FINDINGS: There is no acute intracranial hemorrhage or evidence of territorial infarction. No abnormal mass effect or midline shift is seen. [place] to white matter differentiation is well preserved. There is no abnormal attenuation within the brain parenchyma. The ventricles are normal in size. Again, there is generalized sulcal widening and volume loss. No extra-axial fluid collections are identified. The calvarium and scalp soft tissues are normal. The middle ear cavity and mastoid air cells are clear. The visualized paranasal sinuses are clear. CT/CT head/brain wo IV con IMPRESSION: No acute intracranial pathology.
[2024-04-23 15:02] VITALS: BP 96/62; PULSE 70; O2SAT 96
[2024-04-23 15:32] VITALS: BP 95/57; PULSE 68; RESP 16; TEMP 35.7; O2SAT 94; BMI 23.8
[2024-04-23 15:36] LABS: Glucose, Whole Blood 73 mg/dL (60-115)
--- NOTE | 2024-04-23 16:02 | ECG_ITS ---
Test Reason : AMS Blood Pressure : / mmHG Vent. Rate : 078 BPM Atrial Rate : 078 BPM P-R Int : 194 ms QRS Dur : 084 ms QT Int : 390 ms P-R-T Axes : 041 -11 019 degrees QTc Int : 444 ms Normal sinus rhythm Normal ECG When compared with ECG of 01-SEP-2023 16:23, No significant change was found Referred By: Generic ED Physician Electronically Signed By:FLAKO SAAVEDRA
[2024-04-23 16:32] LABS: MANUAL DIFF FLAG NO
[2024-04-23 16:38] LABS: Basophils Absolute Auto 0.1 X10*3/uL (0.0-0.2); Basophils Percent Auto 0.6 % (0-2); Eosinophils Absolute Auto 0.2 X10*3/uL (0.0-0.4); Eosinophils Percent Auto 1.8 % (0-4); Hematocrit 43.2 % (37.0-47.0); Hemoglobin 13.9 g/dl (12.0-16.0); Imm Gran Abs Auto 0.02 X10*3/uL (0.00-0.03); Imm Gran Pct Auto 0.2 % (0.0-0.4); Lymphocytes Percent Auto 36.2 % (20-40); Mean Corpuscular HGB Conc 32.2 g/dl (31.0-35.0); Mean Platelet Volume 9.5 fL (9.4-12.3); Monocytes Absolute Auto 0.5 X10*3/uL (0.1-1.2); Monocytes Percent Auto 5.7 % (2-11); Neutrophils Absolute Auto 4.6 x10*3/uL (2.0-8.3); Neutrophils Percent Auto 55.5 % (45-73); Platelet Count 472 X10*3/uL (160-400); Red Cell Distribution Width 14.8 % (11.0-16.0); White Blood Count 8.3 X10*3/uL (4.8-10.8)
[2024-04-23 16:41] LABS: Ammonia 23 umol/L (13-55)
--- NOTE | 2024-04-23 16:47 | ED_ITS ---
HPI - Altered Mental Status General Chief Complaint: Altered Mental Status Stated Complaint: UNRESP FOR FAMILY,NOT FOR EMS,H/O DEMENTIA PER EMS Time Seen by Provider: 04/23/24 16:42 Source: patient Mode of arrival: ambulatory Limitations: no limitations History of Present Illness ED Provider: celina RAMOS narrative: Patient with history of severe dementia bed-bound limited conversation been more lethargic and sleepy since 10:30 no fever no cough or shortness of breath no seizure activity no recent fall Related Data Home Medications ?Medication ?Instructions ?Recorded ?Confirmed acetaminophen 325 mg tablet 650 mg PO Q6H PRN Pain 09/18/23 10/18/23 Previous Rx's ?Medication ?Instructions ?Recorded hydrocolloid dressing 8 X 12 #5 ea 02/21/22 (DuoDERM CGF Dressing) adhesive tape 1 X 10 yard #2 ea 04/13/22 adhesive tape 1 X 10 yard #2 ea 04/13/22 ([employer]) adhesive tape 1 X 10 yard #2 ea 04/13/22 ([employer]) gauze bandage 4 X 4 #1,200 ea 04/13/22 gauze bandage 4 X 4 #1,200 ea 04/13/22 powered recliner chair #1 ea 11/22/22 roho seat cushion #1 ea 11/22/22 nebulizers #1 ea 01/06/23 Air mattress overlay #1 ea 03/03/23 body wipes #1,200 ea 03/17/23 disposable bed pads #100 ea 03/17/23 gauze bandage 2 X 2 (Band-Aid #2,400 ea 06/29/23 Gauze Pads) gauze bandage 4 X 4 #1,200 ea 06/29/23 baclofen 10 mg tablet 10 mg PO DAILY #90 tabs 07/12/23 Rossy lift crossover harness #1 ea 10/13/23 gabapentin 300 mg capsule 600 mg (2 x 300 mg) PO BEDTIME 10/18/23 #180 caps disposable gloves (Vinyl Gloves) #200 ea 10/20/23 Adult disposable briefs #210 ea 10/23/23 rossy lift #1 ea 11/14/23 doxycycline hyclate 100 mg tablet 100 mg PO BID 30 days #60 tabs 01/03/24 cholecalciferol (vitamin D3) 25 25 mcg PO DAILY #90 caps 01/24/24 mcg (1,000 unit) capsule cetirizine 10 mg tablet 10 mg PO DAILY #90 tabs 03/06/24 ferrous sulfate 325 mg (65 mg 325 mg PO DAILY #90 tabs 03/28/24 iron) tablet,delayed release folic acid 1 mg tablet 1 mg PO DAILY #90 tabs 04/10/24 Allergies Allergy/AdvReac Type Severity Reaction Status Date / Time [place] nut Allergy Unknown Verified 04/23/24 15:34 lactose Allergy Diarrhea Verified 01/03/24 13:19 Review of Systems 2 Review of Systems: Yes all other systems are reviewed and are negative [facility] Past Medical History Medical History Dementia Osteomyelitis of right hip Protein malnutrition Decubitus ulcer, unstageable with infection Colovaginal fistula Shortness of breath Rash Elevated LFTs Pressure injury of ankle, unstageable Pressure injury of sacral region, stage 3 Unspecified open wound, right hip, initial encounter Dementia Leukocytosis (leucocytosis) Fever Preoperative cardiovascular examination Pre-op evaluation Dislocation, hip closed History of pacemaker Hip dislocation, right Closed dislocation of right hip Visit for wound check Pacemaker Symptomatic bradycardia Syncope Sinus pause Abnormal EKG Displaced fracture of right femoral neck Closed hip fracture Urinary incontinence Balance disorder Left leg weakness Dementia Memory loss PTSD (post-traumatic stress disorder) Tobacco dependence Lactose intolerance Hypothyroidism Abnormal urine odor Surgical History S/P Girdlestone procedure History of hemiarthroplasty of right hip Hx of total hip arthroplasty Status post hip hemiarthroplasty No pertinent past surgical history Family History Family History Mother Unknown family medical history Father Unknown family medical history Social History Social History Household Members: Spouse Housing: Apartment Housing Other:: From [facility] Do you presently have visiting nurse or other home services: Yes Unable to assess alcohol history related to: Unable to respond Alcohol intake: never Comment: pt off unit Patient Tobacco Use Status: Former Tobacco user Tobacco use type: Cigarette Cigarettes Per Day: 5.0 Years Smoked: since teen years per pt e-Cigarette/Vaping Use: Never Used Second Hand Smoke Exposure: No Substance Use Type: Marijuana Advance Directives: Yes Advance Directives on File: Yes Advance Directives Date on File: 06/06/23 service: No Current occupational status: disabled Current occupation: rt handed Cognitive needs: Yes Hearing needs: No Vision needs: Yes Physical Exam ED Vital Signs: Vital Signs - 24 hr 04/23/24 15:32 Temperature 96.2 F L Pulse Rate 68 Respiratory Rate 16 Blood Pressure 95/57 L Pulse Oximetry 94 Oxygen Delivery Method Room Air BMI result Body Mass Index 23.8 Appearance: Lethargic opening her eyes on painful stimuli No acute distress. Eyes: PERRLA, No Nystagmus ENT: Pharynx normal. Oral Mucosa moist Neck: Normal inspection. Neck supple. CVS: Normal heart rate and rhythm. Pulses normal. Respiratory: No respiratory distress. Equal air entry bilateral, no wheezing/rales/rhonchi Abdomen: Soft and nontender. Bowel sounds are present, no mass palpable, no CVA tenderness Skin: Skin warm and dry. Normal skin color. Normal skin turgor. Extremities: No lower extremity edema. No calf tenderness contracted lower extremities Neuro: Lethargic noncommunicative moving upper extremities Medications Administered Discontinued Medications Generic Name Dose Route Start Last Admin Trade Name Freq PRN Reason Stop Dose Admin Sodium Chloride 1,000 mls @ 999 mls/hr 04/23/24 16:48 04/23/24 17:39 Ns IV 04/23/24 17:48 999 mls/hr .Q1H1M ONE Administration Medical Decision Making Medical Decision Making [facility] Narrative: Patient has severe dementia woke up in the ER after giving some water CT scan of the head is negative for acute labs are stable patient is back to her baseline smiling stable vitals will discharge patient home Differential Diagnosis Differential Diagnoses: The differential diagnosis associated with the presentation includes Metabolic encephalopathy/deep sleep/CVA Admission/Observation Consideration of admission/observation: Escalation of care including admission/observation considered Lab Data [facility] Lab Attestation statement: I reviewed the patient's lab results. 04/23/24 16:25 04/23/24 16:25 Labs: Lab Results 04/23/24 04/23/24 04/23/24 Range/Units 15:31 16:25 17:12 WBC 8.3 (4.8-10.8) X10*3/uL RBC 4.80 D (4.20-5.50) X10*6/uL Hgb 13.9 D (12.0-16.0) g/dl Hct 43.2 D (37.0-47.0) % MCV 90.0 (80.0-98.0) fL MCH 29.0 (27.0-33.0) pg MCHC 32.2 (31.0-35.0) g/dl RDW 14.8 (11.0-16.0) % Plt Count 472 H (160-400) X10*3/uL MPV 9.5 (9.4-12.3) fL Immature Gran % (Auto) 0.2 (0.0-0.4) % Neut % (Auto) 55.5 (45-73) % Lymph % (Auto) 36.2 (20-40) % [place] % (Auto) 5.7 (2-11) % Eos % (Auto) 1.8 (0-4) % Baso % (Auto) 0.6 (0-2) % Lymph # (Auto) 3.0 (1.2-4.9) X10*3/uL [place] # (Auto) 0.5 (0.1-1.2) X10*3/uL Eos # (Auto) 0.2 (0.0-0.4) X10*3/uL Baso # (Auto) 0.1 (0.0-0.2) X10*3/uL Abs Immat Gran (auto) 0.02 (0.00-0.03) X10*3/uL Absolute Neuts (auto) 4.6 (2.0-8.3) x10*3/uL Absolute Nucleated RBC 0.000 (0.0-0.012) X10*3/uL Nucleated RBC % (auto) 0.0 (0.0-0.2) /100WBC Sodium 143 (135-145) mmol/L Potassium 4.0 (3.3-5.1) mmol/L Chloride 107 (96-108) mmol/L Carbon Dioxide 30 H (22-29) mmol/L Anion Gap 10 L (12-20) BUN 10 (9-16) mg/dL Creatinine 0.49 L (0.5-1.4) mg/dL Estim Creat Clear Calc 84.1 Estimated GFR > 60 POC Glucose 73 (60-115) mg/dL Random Glucose 79 (60-115) mg/dL Lactic Acid 1.2 (0.5-2.0) mmol/L Calcium 9.7 D (8.4-10.2) mg/dL Total Bilirubin 0.2 (0.0-1.0) mg/dL AST 14 (5-31) U/L ALT 16 (0-31) U/L Alkaline Phosphatase 122 H (39-117) U/L Ammonia 23 (13-55) umol/L Troponin I High Sens < 2.7 (<3.5-17.0) ng/L Total Protein 7.2 (6.5-8.0) g/dL Albumin 3.7 (3.5-5.0) g/dL Discharge Plan Discharge Clinical Impression: Dementia Patient Disposition: Home, Self-Care Instructions: Dementia (ED) Additional Instructions: Continue medications and care as previously Report to the ER if any change/high fever/vomiting Prescriptions: No Action (DME) roho seat cushion See Rx Instructions .Route .MEDSUPPLY Qty: 1 0RF Rx Instructions: As directed (DME) powered recliner chair See Rx Instructions .Route .MEDSUPPLY Qty: 1 0RF Rx Instructions: As directed (DME) Air mattress overlay Misc See Rx Instructions .Route Qty: 1 0RF Rx Instructions: As directed (DME) body wipes See Rx Instructions .Route .MEDSUPPLY Qty: 1200 3RF Rx Instructions: As directed (DME) disposable bed pads See Rx Instructions .Route .MEDSUPPLY Qty: 100 5RF Rx Instructions: As directed baclofen 10 mg tablet 10 mg PO DAILY Qty: 90 3RF (DME) Rossy lift crossover harness medium See Rx Instructions .Route .MEDSUPPLY Qty: 1 0RF Rx Instructions: As directed (DME) disposable gloves [Vinyl Gloves] Misc See Rx Instructions .Route Qty: 200 5RF Rx Instructions: As directed (DME) Adult disposable briefs Medium See Rx Instructions .Route .MEDSUPPLY Qty: 210 11RF Rx Instructions: Pull-ups , adult disposable briefs. Uses 7 per day (DME) rossy lift See Rx Instructions .Route .MEDSUPPLY Qty: 1 0RF Rx Instructions: As directed for permanent use cholecalciferol (vitamin D3) 25 mcg (1,000 unit) capsule 25 mcg PO DAILY Qty: 90 1RF cetirizine 10 mg tablet 10 mg PO DAILY Qty: 90 1RF ferrous sulfate 325 mg (65 mg iron) tablet,delayed release (DR/EC) 325 mg PO DAILY Qty: 90 0RF folic acid 1 mg tablet 1 mg PO DAILY Qty: 90 3RF (DME) adhesive tape [[employer]] 1 X 10 -yard tape See Rx Instructions .Route Qty: 2 0RF Rx Instructions: As directed (DME) adhesive tape [[employer]] 1 X 10 -yard tape See Rx Instructions .Route Qty: 2 0RF Rx Instructions: As directed (DME) gauze bandage 4 X 4 bandage See Rx Instructions .Route Qty: 1200 0RF Rx Instructions: As directed (DME) gauze bandage 4 X 4 bandage See Rx Instructions .Route Qty: 1200 0RF Rx Instructions: As directed (DME) adhesive tape 1 X 10 -yard tape See Rx Instructions .Route Qty: 2 0RF Rx Instructions: As directed acetaminophen 325 mg Tablet 650 mg PO Q6H PRN (Reason: Pain) gabapentin 300 mg capsule 600 mg PO BEDTIME Qty: 180 3RF (DME) DuoDERM CGF Dressing 8 X 12 bandage See Rx Instructions .Route Qty: 5 0RF Rx Instructions: As directed (DME) nebulizers Misc See Rx Instructions .Route Qty: 1 0RF Rx Instructions: 1 bid (DME) gauze bandage 4 X 4 bandage See Rx Instructions .Route Qty: 1200 3RF Rx Instructions: as directed (DME) gauze bandage [Band-Aid Gauze Pads] 2 X 2 bandage See Rx Instructions .Route Qty: 2400 2RF Rx Instructions: As directed doxycycline hyclate 100 mg tablet 100 mg PO BID 30 Days Qty: 60 5RF Print Language: Turkmen
[2024-04-23 16:50] LABS: Alanine Aminotransferase 16 U/L (0-31); Albumin Level 3.7 g/dL (3.5-5.0); Alkaline Phosphatase 122 U/L (39-117); Anion Gap 10 (12-20); Aspartate Amino Transferase 14 U/L (5-31); Bilirubin Total 0.2 mg/dL (0.0-1.0); Blood Urea Nitrogen 10 mg/dL (9-16); Calcium 9.7 mg/dL (8.4-10.2); Carbon Dioxide 30 mmol/L (22-29); Chloride 107 mmol/L (96-108); Creatinine Clr Calc Pharmacy 84.1; Estimated Glomerular Filt Rate > 60; Glucose Random 79 mg/dL (60-115); Sodium 143 mmol/L (135-145); Total Protein 7.2 g/dL (6.5-8.0)
[2024-04-23 17:04] LABS: Troponin-I High Sensitivity < 2.7 ng/L (<3.5-17.0)
[2024-04-23 17:34] LABS: Lactic Acid 1.2 mmol/L (0.5-2.0)
[2024-04-23] MEDS: 0.9 % Sodium Chloride 1,000 ML 999 ML IV (17:39)
[2024-04-23 19:04] VITALS: BP 123/57; PULSE 74; RESP 14; TEMP 36.5; O2SAT 96
[2024-04-23 20:30] VITALS: BP 123/57; PULSE 74; RESP 14; TEMP 36.5; O2SAT 96
== END 2024-04-23 20:31 | disposition home or self-care (01) ==
PROVIDERS: Emergency Provider Internal Medicine; PCP Internal Medicine
DX: F03.C0 Unspecified dementia, severe, without behavioral disturbance, psychotic disturbance, mood disturbance, and anxiety (principal); R41.82 Altered mental status, unspecified; F05 Delirium due to known physiological condition; R53.83 Other fatigue; G47.9 Sleep disorder, unspecified; R11.0 Nausea; Z79.899 Other long term (current) drug therapy
CPT/HCPCS: 36415; 70450; 71045; 80053; 82140; 82947; 83605; 84484; 85025; 87040; 93005; 96360; 96361; 99284; 99285

== ENCOUNTER → 2024-04-23 16:02 | Outpatient (BNV) | payer OTHER, SELFPAY | PROVIDERS: Emergency Provider Internal Medicine; PCP Internal Medicine; Visit Provider Internal Medicine | DX: R41.82 Altered mental status, unspecified (principal) | CPT/HCPCS: 93010 ==

== ENCOUNTER 2024-05-30 09:10 | Outpatient (AMB) | payer OTHER, SELFPAY ==
[2024-05-30 09:15] VITALS: BP 106/70; PULSE 92; O2SAT 96
--- NOTE | 2024-05-30 09:15 | MHC.PC.OV ---
Vital Signs 05/30/24 09:15 Height 4 ft 9 in BMI Reason not done Patient refused/unable BP 106/70 Blood Pressure Location Rt brachial Position Sitting Pulse 92 Pulse Source Pulse Oximeter Pulse Oximetry (%) 96 Oxygen Delivery Method Room Air Intake Visit Reasons: f/u chk up Allergies [place] nut Allergy (Verified 05/30/24 09:19) Unknown lactose Allergy (Verified 05/30/24 09:19) Diarrhea Medication List - Last Reconciled 05/30/24 by Marry Campuzano MD acetaminophen 650 mg PO Q6H PRN adhesive tape As directed adhesive tape ([employer]) As directed adhesive tape ([employer]) As directed [Adult disposable briefs Pull-ups , adult disposable briefs. Uses 7 per day] Air mattress overlay As directed baclofen 10 mg PO DAILY [body wipes As directed] cetirizine 10 mg PO DAILY cholecalciferol (vitamin D3) 25 mcg PO DAILY [disposable bed pads As directed] disposable gloves (Vinyl Gloves) As directed doxycycline hyclate 100 mg PO BID 30 days ferrous sulfate 325 mg PO DAILY folic acid 1 mg PO DAILY gabapentin 600 mg (2 x 300 mg) PO BEDTIME gauze bandage As directed gauze bandage As directed gauze bandage as directed gauze bandage (Band-Aid Gauze Pads) As directed [rossy lift As directed for permanent use] [Rossy lift crossover harness As directed] hydrocolloid dressing (DuoDERM CGF Dressing) As directed levothyroxine 100 mcg PO DAILY nebulizers 1 bid [powered recliner chair As directed] [roho seat cushion As directed] Tobacco use date assessed: 05/30/24 Dental Screening Dental Screen Date: 05/30/24 Did you have a dental visit in the last 12 months?: No Did you have a dental problem in the last 6 months where you did not have access to dental care?: No Was dental information given to patient?: Patient declined HPI f/u chk up HPI Details Patient presents for the follow-up. Dementia has been progressing patient is not verbal and wheelchair-bound. according to her caregiver she has been eating better and gained some weight. Decubitus ulcer healed. patient has been taking doxycycline chronically and follows up with Infectious Disease. Hypothyroidism is controlled on levothyroxine. Patient has been taking gabapentin for chronic lower back pain with good relief. PFSH Medical History (Updated 05/30/24 @ 10:02 by Marry Campuzano MD) Hypothyroidism Dementia Osteomyelitis of right hip Protein malnutrition Decubitus ulcer, unstageable with infection Colovaginal fistula Shortness of breath Rash Elevated LFTs Pressure injury of ankle, unstageable Pressure injury of sacral region, stage 3 Unspecified open wound, right hip, initial encounter Dementia Leukocytosis (leucocytosis) Fever Preoperative cardiovascular examination Pre-op evaluation Dislocation, hip closed History of pacemaker Hip dislocation, right Closed dislocation of right hip Visit for wound check Pacemaker Symptomatic bradycardia Syncope Sinus pause Abnormal EKG Displaced fracture of right femoral neck Closed hip fracture Urinary incontinence Balance disorder Left leg weakness Dementia Memory loss PTSD (post-traumatic stress disorder) Tobacco dependence Lactose intolerance Abnormal urine odor Surgical History S/P Girdlestone procedure History of hemiarthroplasty of right hip Hx of total hip arthroplasty Status post hip hemiarthroplasty No pertinent past surgical history Family History Mother Unknown family medical history Father Unknown family medical history Social History Household Members: Spouse Housing: Apartment Housing [facility] Do you presently have visiting nurse or other home services: Yes Unable to assess alcohol history related to: Unable to respond Alcohol intake: never Comment: pt off unit Patient Tobacco Use Status: Former Tobacco user Tobacco use type: Cigarette Cigarettes Per Day: 5.0 Years Smoked: since teen years per pt e-Cigarette/Vaping Use: Never Used Second Hand Smoke Exposure: No Substance Use Type: Marijuana Advance Directives Date on File: 06/06/23 service: No Current occupational status: disabled Current occupation: rt handed Cognitive needs: Yes Hearing needs: No Vision needs: Yes Questionnaire PHQ-9 Over the last 2 weeks, how often have you been bothered by any of the following problems? 1. Little interest or pleasure in doing things: not at all 2. Feeling down, depressed, or hopeless: not at all 3. Trouble falling or staying asleep, or sleeping too much: not at all 4. Feeling tired or having little energy: not at all 5. Poor appetite or overeating: not at all 6. Feeling bad about yourself - or that you are a failure or have let yourself or your family down: not at all 7. Trouble concentrating on things, such as reading the newspaper or watching television: not at all 8. Moving or speaking so slowly that other people could have noticed. Or the opposite - being so fidgety or restless that you have been moving around a lot more than usual: not at all 9. Thoughts that you would be better off or of hurting yourself in some way: not at all Total score: 0 Depression Screening Interpretation: Negative Depression Screening Done: Yes Source: Developed by Drs. Richie Parker, Reanna Thornton, Aleksander Olivera and colleagues, with an educational alcides from [employer]. Thrive Questionnaire Date Thrive assessed: 05/30/24 I am a: Patient What is your living situation today?: I have a steady place to live Within the past 12 months, did the food you bought not last and you didn't have the money to get more?: Never true Within the past 12 months, did you worry whether your food would run out before you got money to buy more?: Never true Do you have trouble paying for medicines?: No Do you have trouble getting transportation to medical appointments?: No Do you have trouble paying your heating and electricity bill?: No Do you have trouble taking care of your child, family member or friend?: No Do you have trouble with day-to-day activities such as bathing, preparing meals, shopping, managing finances, etc.?: No Are you currently unemployed and looking for a job?: No Are you interested in more education?: No Please select the resources that you would like help with: None THRIVE Score: 0 AUDIT C Alcohol Use Questionnaire (AUDIT-C) 1. How often do you have a drink containing alcohol?: Never 3. How often do you have six or more drinks on one occasion?: Never Total Score: 0 BENSON-7 AMB Questionnaire BENSON-7 Date BENSON - 7 assessed: 05/30/24 Feeling nervous, anxious, or on edge: 0 = Not at all Not being able to stop or control worryin = Not at all Worrying too much about different things: 0 = Not at all Trouble relaxin = Not at all Being so restless that it is hard to sit still: 0 = Not at all Becoming easily annoyed or irritable: 0 = Not at all Feeling afraid as if something awful might happen: 0 = Not at all Total BENSON-7 score (0-4 normal; 5-9 mild; 10-14 moderate; 15-21 severe): 0 Source: Developed by Drs. Richie Parker, Reanna Thornton, Aleksander Olivera and colleagues, with an educational alcides from [employer]. Review of Systems Const All systems reviewed & are unremarkable except as noted in HPI and below Card Reports no additional complaints Resp Reports no additional complaints GI Reports no additional complaints Physical exam (Primary Care) Vital Signs: Last Vital Signs Pulse 92 05/30/24 09:15 BP 106/70 05/30/24 09:15 Pulse Ox 96 05/30/24 09:15 Oxygen Delivery Method Room Air 05/30/24 09:15 Tobacco/Smoking Status: Tobacco use Status Tobacco use date assessed 05/30/24 05/30/24 09:20 Patient Tobacco Use Status Former Tobacco user 05/30/24 09:20 Tobacco use type Cigarette 05/30/24 09:20 e-Cigarette/Vaping Use Never Used 05/30/24 09:20 PHQ-9: PHQ-9 Score PHQ-9: Total score 0 05/30/24 09:20 Depression Screening Interpretation: Negative Thrive Assessment: Date of Thrive Assessment Date Thrive assessed 05/30/24 05/30/24 09:20 Assessment and Plan Assessment & Plan (1) Anemia: Code(s): D64.9 - Anemia, unspecified Plan: Check CBC and iron count continue iron supplement (2) Dementia: Comment: ADVANCED, NON VERBAL Code(s): F03.90 - Unspecified dementia, unspecified severity, without behavioral disturbance, psychotic disturbance, mood disturbance, and anxiety Plan: Continue current home care (3) Iron deficiency: Code(s): E61.1 - Iron deficiency Plan: Check iron count (4) Vitamin D deficiency: Code(s): E55.9 - Vitamin D deficiency, unspecified Plan: Check vitamin-D (5) Hypothyroidism: Code(s): E03.9 - Hypothyroidism, unspecified Plan: Continue levothyroxine Orders: Orders Comprehensive [place]. Panel Fast Today D64.9 - Anemia, unspecified, E55.9 - Vitamin D deficiency, unspecified, E61.1 - Iron deficiency, F03.90 - Unspecified dementia, unspecified severity, without behavioral disturbance, psychotic disturbance, mood disturbance, and anxiety TSH reflex Free T4 Today D64.9 - Anemia, unspecified, E55.9 - Vitamin D deficiency, unspecified, E61.1 - Iron deficiency, F03.90 - Unspecified dementia, unspecified severity, without behavioral disturbance, psychotic disturbance, mood disturbance, and anxiety IRON PROFILE Today D64.9 - Anemia, unspecified, E55.9 - Vitamin D deficiency, unspecified, E61.1 - Iron deficiency, F03.90 - Unspecified dementia, unspecified severity, without behavioral disturbance, psychotic disturbance, mood disturbance, and anxiety Vitamin D 25-OH Total Today D64.9 - Anemia, unspecified, E55.9 - Vitamin D deficiency, unspecified, E61.1 - Iron deficiency, F03.90 - Unspecified dementia, unspecified severity, without behavioral disturbance, psychotic disturbance, mood disturbance, and anxiety Medications: New zinc oxide-white petrolatum 10-78 % ([place] Moist Barrier-Zinc) 1 appl topical .qd 99 grams 5RF diaper,brief,adult,disposable large size, 8 changes in 24 hs 240 ea 4RF Refilled baclofen 10 mg PO DAILY 90 tabs 3RF folic acid 1 mg PO DAILY 90 tabs 3RF levothyroxine 100 mcg PO DAILY 90 tabs 3RF cetirizine 10 mg PO DAILY 90 tabs 3RF cholecalciferol (vitamin D3) 25 mcg PO DAILY 90 caps 1RF ferrous sulfate 325 mg PO DAILY 90 tabs 3RF doxycycline hyclate 100 mg PO BID 30 days 60 tabs 5RF Discontinued doxycycline hyclate Discontinued Reason: Doctor's Order 100 mg PO BID 30 days 60 tabs 5RF Coding Level of Care Code Est Pt Level 4 (69303) Diagnoses Anemia D64.9 Dementia F03.90 Iron deficiency E61.1 Vitamin D deficiency E55.9 Hypothyroidism E03.9
== END 2024-05-30 10:02 | disposition home or self-care (01) ==
PROVIDERS: PCP Internal Medicine; Visit Provider Internal Medicine
DX: D64.9 Anemia, unspecified (principal); F03.90 Unspecified dementia, unspecified severity, without behavioral disturbance, psychotic disturbance, mood disturbance, and anxiety; E61.1 Iron deficiency; E55.9 Vitamin D deficiency, unspecified; E03.9 Hypothyroidism, unspecified
CPT/HCPCS: 99214

== ENCOUNTER 2024-05-30 09:47 | Outpatient (REF) | payer OTHER, SELFPAY ==
[2024-05-30 13:51] LABS: Alanine Aminotransferase 8 U/L (0-31); Albumin Level 3.7 g/dL (3.5-5.0); Alkaline Phosphatase 104 U/L (39-117); Anion Gap 18 (12-20); Aspartate Amino Transferase 11 U/L (5-31); Bilirubin Total 0.2 mg/dL (0.0-1.0); Blood Urea Nitrogen 9 mg/dL (9-16); Calcium 10.2 mg/dL (8.4-10.2); Carbon Dioxide 23 mmol/L (22-29); Chloride 105 mmol/L (96-108); Estimated Glomerular Filt Rate > 60; Glucose Fasting 114 mg/dL (60-99); Iron 30 mcg/dL (30-160); Percent Iron Saturation 16 % (15-50); Potassium 3.5 mmol/L (3.3-5.1); Sodium 142 mmol/L (135-145); Total Iron Binding Capacity 193 mcg/dL (228-428); Total Protein 7.4 g/dL (6.5-8.0); Unsaturated Iron Binding 163 ug/dL
[2024-05-30 13:52] LABS: TSH reflex Free T4 0.02 uIU/mL (0.32-4.0); Vitamin D 25-OH Total 36.9 ng/mL (>30)
[2024-05-30 14:38] LABS: Free T4 (Free Thyroxine) 1.37 ng/dL (0.71-1.85)
== END 2024-05-30 09:48 | disposition home or self-care (01) ==
LOC: HO.HMGCLDS 09:47
PROVIDERS: PCP Internal Medicine; Visit Provider Internal Medicine
DX: D64.9 Anemia, unspecified (principal); F03.90 Unspecified dementia, unspecified severity, without behavioral disturbance, psychotic disturbance, mood disturbance, and anxiety; E61.1 Iron deficiency; E55.9 Vitamin D deficiency, unspecified
CPT/HCPCS: 36415; 80053; 82306; 83540; 84439; 84443

== ENCOUNTER 2024-07-03 14:02 | Outpatient (AMB) | payer OTHER, SELFPAY ==
--- NOTE | 2024-07-03 14:10 | MHC.OFFVIS ---
Vital Signs 07/03/24 14:45 Pulse 92 Pulse Source Pulse Oximeter Temp 97.6 F Temp Source Oral Pulse Oximetry (%) 96 Oxygen Delivery Method Room Air Intake Visit Reasons: F/U 6 mth/lab Allergies [place] nut Allergy (Verified 07/03/24 14:46) Unknown lactose Allergy (Verified 07/03/24 14:46) Diarrhea HPI HPI F/U 6 mth/lab: Details: She continues to do well on treatment for OM sacrum/right hip,prophylactic Doxycycline. [facility] Medical History Hypothyroidism Dementia Osteomyelitis of right hip Protein malnutrition Decubitus ulcer, unstageable with infection Colovaginal fistula Shortness of breath Rash Elevated LFTs Pressure injury of ankle, unstageable Pressure injury of sacral region, stage 3 Unspecified open wound, right hip, initial encounter Dementia Leukocytosis (leucocytosis) Fever Preoperative cardiovascular examination Pre-op evaluation Dislocation, hip closed History of pacemaker Hip dislocation, right Closed dislocation of right hip Visit for wound check Pacemaker Symptomatic bradycardia Syncope Sinus pause Abnormal EKG Displaced fracture of right femoral neck Closed hip fracture Urinary incontinence Balance disorder Left leg weakness Dementia Memory loss PTSD (post-traumatic stress disorder) Tobacco dependence Lactose intolerance Abnormal urine odor Surgical History S/P Girdlestone procedure History of hemiarthroplasty of right hip Hx of total hip arthroplasty Status post hip hemiarthroplasty No pertinent past surgical history Family History Mother Unknown family medical history Father Unknown family medical history Social History Household Members: Spouse Housing: Apartment Housing Other:: From [facility] Do you presently have visiting nurse or other home services: Yes Unable to assess alcohol history related to: Unable to respond Alcohol intake: never Comment: pt off unit Patient Tobacco Use Status: Former Tobacco user Tobacco use type: Cigarette Cigarettes Per Day: 5.0 Years Smoked: since teen years per pt e-Cigarette/Vaping Use: Never Used Second Hand Smoke Exposure: No Substance Use Type: Marijuana Advance Directives Date on File: 06/06/23 service: No Current occupational status: disabled Current occupation: rt handed Cognitive needs: Yes Hearing needs: No Vision needs: Yes Review of Systems Const All systems reviewed & are unremarkable except as noted in HPI and below Physical Exam Vital Signs: Last Vital Signs Temp 97.6 F 07/03/24 14:45 Pulse 92 07/03/24 14:45 Pulse Ox 96 07/03/24 14:45 Oxygen Delivery Method Room Air 07/03/24 14:45 Const General: cooperative HEENT Head: Yes normal to inspection Face and sinus: Yes normal facial exam Mouth: Normal oral and palatal mucosa present Teeth and gingiva: dentition normal Eyes General: appearance normal, both eyes and all related structures Pupils: Equal, round and reactive pupils present Resp Effort & Inspection: normal respiratory effort Cardio Rate: regular rate Rhythm: regular rhythm GI Palpation (GI): Soft to palpation and nontender General: Yes no CVA tenderness Back/Spine/Pelvis Back: no CVA tenderness Skin General skin exam: no rashes or lesions noted Neuro Other: in chair,not mobile Cranial nerves: Yes Equal, round and reactive pupils present Extrem General: Yes normal to inspection Psych Appearance: grossly normal Assessment & Plan Assessment & Plan (1) Osteomyelitis of right hip: Comment: She is doing better on preventive treatment for OM sacrum. Code(s): M86.9 - Osteomyelitis, unspecified Category: Medical Plan: Continue preventive po Doxycycline. See in six months. Medications: Refilled doxycycline hyclate 100 mg PO BID 60 tabs 5RF 30 days doxycycline hyclate 100 mg PO BID 60 tabs 5RF 30 days Coding Level of Care Code Est Pt Level 3 (00015) Diagnoses Osteomyelitis of right hip M86.9
[2024-07-03 14:45] VITALS: PULSE 92; TEMP 36.4; O2SAT 96
== END 2024-07-03 15:03 | disposition home or self-care (01) ==
LOC: HO.HID 14:02
PROVIDERS: PCP Internal Medicine; Visit Provider Internal Medicine
DX: M86.9 Osteomyelitis, unspecified (principal)
CPT/HCPCS: 99213

== ENCOUNTER → 2024-07-03 14:02 | Outpatient (BNVA) | payer OTHER, SELFPAY | PROVIDERS: PCP Internal Medicine; Visit Provider Internal Medicine | DX: M86.9 Osteomyelitis, unspecified (principal) | CPT/HCPCS: 99212 ==

== ENCOUNTER 2024-12-06 09:36 | Outpatient (REF) | payer OTHER, SELFPAY ==
[2024-12-06 13:55] LABS: MANUAL DIFF FLAG NO
[2024-12-06 14:00] LABS: Basophils Absolute Auto 0.1 X10*3/uL (0.0-0.2); Basophils Percent Auto 0.4 % (0-2); Eosinophils Percent Auto 0.2 % (0-4); Hematocrit 44.1 % (37.0-47.0); Hemoglobin 14.2 g/dl (12.0-16.0); Imm Gran Abs Auto 0.12 X10*3/uL (0.00-0.03); Imm Gran Pct Auto 0.6 % (0.0-0.4); Lymphocytes Absolute Auto 2.4 X10*3/uL (1.2-4.9); Lymphocytes Percent Auto 12.6 % (20-40); Mean Corpuscular HGB Conc 32.2 g/dl (31.0-35.0); Mean Corpuscular Hemoglobin 29.7 pg (27.0-33.0); Mean Corpuscular Volume 92.3 fL (80.0-98.0); Mean Platelet Volume 11.4 fL (9.4-12.3); Monocytes Percent Auto 5.3 % (2-11); Neutrophils Absolute Auto 15.4 x10*3/uL (2.0-8.3); Neutrophils Percent Auto 80.9 % (45-73); Platelet Count 341 X10*3/uL (160-400); Red Blood Count 4.78 X10*6/uL (4.20-5.50); Red Cell Distribution Width 14.3 % (11.0-16.0)
[2024-12-06 14:33] LABS: Folate 18.6 ng/mL (> or = 4.0); Vitamin B12 535 pg/mL (200-900)
[2024-12-06 14:56] LABS: Alanine Aminotransferase 19 U/L (0-31); Alkaline Phosphatase 119 U/L (39-117); Anion Gap 17 (12-20); Aspartate Amino Transferase 23 U/L (5-31); Bilirubin Total 0.3 mg/dL (0.0-1.0); Blood Urea Nitrogen 16 mg/dL (9-16); Calcium 9.5 mg/dL (8.4-10.2); Carbon Dioxide 22 mmol/L (22-29); Chloride 106 mmol/L (96-108); Estimated Glomerular Filt Rate > 60; Glucose Random 115 mg/dL (60-115); Iron 19 mcg/dL (30-160); Percent Iron Saturation 8 % (15-50); Potassium 3.5 mmol/L (3.3-5.1); Sodium 141 mmol/L (135-145); Total Iron Binding Capacity 224 mcg/dL (228-428); Total Protein 7.8 g/dL (6.5-8.0); Unsaturated Iron Binding 205 ug/dL
[2024-12-06 15:15] LABS: TSH reflex Free T4 0.03 uIU/mL (0.32-4.0); Vitamin D 25-OH Total 52.2 ng/mL (>30)
[2024-12-06 15:55] LABS: Free T4 (Free Thyroxine) 1.51 ng/dL (0.71-1.85)
== END 2024-12-06 09:37 | disposition home or self-care (01) ==
LOC: HO.HMGCLDS 09:36
PROVIDERS: PCP Internal Medicine; Visit Provider Internal Medicine
DX: Z00.00 Encounter for general adult medical examination without abnormal findings (principal); E03.9 Hypothyroidism, unspecified; E55.9 Vitamin D deficiency, unspecified; D64.9 Anemia, unspecified; F03.90 Unspecified dementia, unspecified severity, without behavioral disturbance, psychotic disturbance, mood disturbance, and anxiety; Z79.899 Other long term (current) drug therapy
CPT/HCPCS: 36415; 80053; 82306; 82607; 82746; 83540; 84439; 84443; 85025; 96127

== ENCOUNTER 2024-12-06 09:36 | Outpatient (AMB) | payer OTHER, SELFPAY ==
--- NOTE | 2024-12-06 09:37 | A.OFFVIS_ITS ---
Intake Vital Signs 12/06/24 09:40 BMI Reason not done Patient refused/unable BP 102/66 Blood Pressure Location Lt brachial Position Sitting Pulse 108 H Pulse Source Pulse Oximeter Temp 99.2 F Temp Source Oral Pulse Oximetry (%) 95 Oxygen Delivery Method Room Air Intake Visit Reasons: SWV G0439 Allergies [place] nut Allergy (Verified 12/06/24 09:40) Unknown lactose Allergy (Verified 12/06/24 09:40) Diarrhea Medication List - Last Reconciled 12/06/24 by Marry Campuzano MD acetaminophen 650 mg PO Q6H PRN adhesive tape As directed adhesive tape ([employer]) As directed adhesive tape ([employer]) As directed Air mattress overlay As directed baclofen 10 mg PO DAILY [body wipes As directed] cetirizine 10 mg PO DAILY cholecalciferol (vitamin D3) 25 mcg PO DAILY diaper,brief,adult,disposable large size, 8 changes in 24 hrs disposable gloves (Vinyl Gloves) As directed doxycycline hyclate 100 mg PO BID 30 days ferrous sulfate 325 mg PO DAILY folic acid 1 mg PO DAILY food supplemt, lactose-reduced (Nutritional Drink oral liquid) 1 ea PO BID gabapentin 600 mg (2 x 300 mg) PO BEDTIME gauze bandage As directed gauze bandage As directed gauze bandage as directed gauze bandage (Band-Aid Gauze Pads) As directed [rossy lift As directed for permanent use] [Rossy lift crossover harness As directed] hydrocolloid dressing (DuoDERM CGF Dressing) As directed levothyroxine 100 mcg PO DAILY nebulizers 1 bid [powered recliner chair As directed] [powered recliner-small As directed] [roho seat cushion As directed] [washable bed pads-large As directed] zinc oxide-white petrolatum 10-78 % ([place]elo Moist Barrier-Zinc) 1 appl topical .qd HPI SWV G0439 HPI Details Patient presents for annual visit with her . She has advanced dementia is not verbal and wheelchair-bound. Initiated the conversation about Advanced Directives. Advanced Directives help? patients prepare for current and future decisions about their medical treatment? and place of care. Discussed with patient that it is a process where a patients? current condition and prognosis are reviewed, their wishes for information? regarding their illness are elicited, and likely medical dilemmas are presented? and options discussed. The form can be amended as needed, reviewed yearly and? make changes as needed IPPE/AWV ? year old presents? for her ? Annual? Wellness Visit, initial visit.? Medical / Social History Reviewed? Past Medical History ?Yes? . ? [place]? of Care / Care Team list updated ?Yes . ? Surgical/Hospitalization? History ?Yes . ? Current Medications? (including OTC and supplements) ?Yes . ? Family History ?Yes? . ? Tobacco? Control form ?Yes . ? AUDIT-C (Alcohol use) form? ?Yes . ? Illicit drug use in Social? History ?Yes . ? Current diagnosis of? depression? ?No ? Appropriate PHQ2/PHQ9? completed ?Yes . ? Data entered by ?Medical? Carpenter Assistant and reviewed by provider ? Fall Risk ? Fall? History? Have you had any falls with? injury in the past year? ?No . ? Have you had two or more? falls in the past year? ?No . ? Fall Risk Assessment: ?No? falls in the past year . ? HRA filled out by? the patient, reviewed by Provider and scanned. ? IPPE/AWV ? Balance? [place]? ?Yes . ? Tandem? walk ?Yes . ? Walk and? Turn ?Yes . ? Rise from? sit to stand ?Yes . ?Vision? Corrective? lens ?Yes ? Vision? screen ? Up-to-date, has an appointment [] for vision? screening and glaucoma screening ?Hearing? Whisper? test ?pass .? Initiated the conversation about Advanced Directives. Advanced Directives help? patients prepare for current and future decisions about their medical treatment? and place of care. Discussed with patient that it is a process where a patients? current condition and prognosis are reviewed, their wishes for information? regarding their illness are elicited, and likely medical dilemmas are presented? and options discussed. The form can be amended as needed, reviewe d yearly and? make changes as needed Written? Plan?Completed. See Patient? Documents. [facility] Medical History Hypothyroidism Dementia Osteomyelitis of right hip Protein malnutrition Decubitus ulcer, unstageable with infection Colovaginal fistula Shortness of breath Rash Elevated LFTs Pressure injury of ankle, unstageable Pressure injury of sacral region, stage 3 Unspecified open wound, right hip, initial encounter Dementia Leukocytosis (leucocytosis) Fever Preoperative cardiovascular examination Pre-op evaluation Dislocation, hip closed History of pacemaker Hip dislocation, right Closed dislocation of right hip Visit for wound check Pacemaker Symptomatic bradycardia Syncope Sinus pause Abnormal EKG Displaced fracture of right femoral neck Closed hip fracture Urinary incontinence Balance disorder Left leg weakness Dementia Memory loss PTSD (post-traumatic stress disorder) Tobacco dependence Lactose intolerance Abnormal urine odor Surgical History S/P Girdlestone procedure History of hemiarthroplasty of right hip Hx of total hip arthroplasty Status post hip hemiarthroplasty No pertinent past surgical history Family History Mother Unknown family medical history Father Unknown family medical history Social History Household Members: Spouse Housing: Apartment Housing Other:: From [facility] Do you presently have visiting nurse or other home services: Yes Unable to assess alcohol history related to: Unable to respond Alcohol intake: never Comment: pt off unit Patient Tobacco Use Status: Former Tobacco user Tobacco use type: Cigarette Cigarettes Per Day: 5.0 Years Smoked: since teen years per pt e-Cigarette/Vaping Use: Never Used Second Hand Smoke Exposure: No Substance Use Type: Marijuana Advance Directives Date on File: 06/06/23 service: No Current occupational status: disabled Current occupation: rt handed Cognitive needs: Yes Hearing needs: No Vision needs: Yes Questionnaire Medicare Wellness Checkup What gender do you identify with?: female During the past 4 weeks, how much have you been bothered by emotional problems such as feeling anxious, depressed, irritable, sad or downhearted, and blue?: not at all During the past 4 weeks, has your physical & emotional health limited your social activities with family, friends, neighbors, or groups?: not at all During the past 4 weeks, how much bodily pain have you generally had?: mild pain During the past 4 weeks, was someone available to help you if you needed & wanted help?: yes, as much as I wanted During the past 4 weeks, what was the hardest physical activity you could do for at least 2 minutes?: very light Can you get to places out of walking distance without help? (For eg., can you travel alone on buses, taxis or drive your car?): No Can you go shopping for groceries or clothes without someone's help?: No Can you prepare your own meals?: No Can you do your housework without help?: No Because of any health problems, do you need the help of another person with your personal care needs such as eating, bathing, dressing or getting around the house?: Yes Can you handle your own money without help?: No During the past 4 weeks, how would you rate your health in general?: good During the past 4 weeks how have things been going for you?: good & bad parts about equal Are you having difficulties driving your car?: not applicable, I don't use a car Do you always fasten your seat belt when you are in a car?: yes, usually During past 4 weeks, have you been bothered by the following: never: Falling or dizzy when standing up, Sexual problems?, Trouble eating well?, Problems using the telephone? and Tiredness or fatigue? and always: Teeth or denture problems? Have you fallen 2 or more times in the past year?: No Are you afraid of falling?: No Are you a smoker?: no During the past 4 weeks, how many drinks of wine, beer, or other alcoholic beverages did you have?: no alcohol at all Do you exercise for about 20 minutes 3 or more times a week?: no, I usually do not exercise this much Have you been given information to help with the following?: no: Hazards in your house that might hurt you? and no: Keeping track of your medications? How often do you have trouble taking medicines the way you have been told to take them?: I always take medicine as prescribed How confident are you that you can control & manage most of your health problems ?: somewhat confident What is your race?: White Mini Mental State Exam (MMSE) Orientation What is the (year) (season) (date) (day) (month)?: year (Not able to perform mini-mental state exam due to patient having advanced dementia on being nonverbal) Score Score: 1 PHQ-9 Over the last 2 weeks, how often have you been bothered by any of the following problems? 1. Little interest or pleasure in doing things: not at all 2. Feeling down, depressed, or hopeless: not at all 3. Trouble falling or staying asleep, or sleeping too much: not at all 4. Feeling tired or having little energy: not at all 5. Poor appetite or overeating: not at all 6. Feeling bad about yourself - or that you are a failure or have let yourself or your family down: not at all 7. Trouble concentrating on things, such as reading the newspaper or watching television: not at all 8. Moving or speaking so slowly that other people could have noticed. Or the opposite - being so fidgety or restless that you have been moving around a lot more than usual: not at all 9. Thoughts that you would be better off or of hurting yourself in some way: not at all Total score: 0 Depression Screening Interpretation: Negative Depression Screening Done: Yes 20074 - PHQ-9 Billing: Yes Source: Developed by Drs. Richie Parker, Reanna Thornton, Aleksander Olivera and colleagues, with an educational alcides from [employer]. Review of Systems Const All systems reviewed & are unremarkable except as noted in HPI and below Reports no additional complaints Eyes Reports no additional complaints ENT Reports no additional complaints Card Reports no additional complaints Resp Reports no additional complaints GI Reports no additional complaints Reports no additional complaints Physical Exam Vital Signs: Last Vital Signs Temp 99.2 F 12/06/24 09:40 Pulse 108 H 12/06/24 09:40 BP 102/66 12/06/24 09:40 Pulse Ox 95 12/06/24 09:40 Oxygen Delivery Method Room Air 12/06/24 09:40 Const General: no acute distress HEENT Head: Yes normal to inspection Eyes General: appearance normal, both eyes and all related structures Neck Neck: Yes no lymphadenopathy and Yes supple Resp Effort & Inspection: normal respiratory effort Auscultation: clear to auscultation bilaterally Cardio Rhythm: regular rhythm Heart sounds: S1 normal heart sound present and S2 normal heart sound present GI Inspection: Yes normal to inspection Palpation (GI): Soft to palpation Percussion: Yes normal to percussion Auscultation: normal bowel sounds Extrem General: Yes no clubbing, cyanosis or edema Assessment & Plan Assessment & Plan (1) Hypothyroidism: Code(s): E03.9 - Hypothyroidism, unspecified Plan: Continue levothyroxine check TSH level (2) Vitamin D deficiency: Code(s): E55.9 - Vitamin D deficiency, unspecified Plan: Continue vitamin-D supplement (3) Anemia: Code(s): D64.9 - Anemia, unspecified Plan: Monitor CBC and iron count (4) Dementia: Comment: ADVANCED, NON VERBAL Code(s): F03.90 - Unspecified dementia, unspecified severity, without behavioral disturbance, psychotic disturbance, mood disturbance, and anxiety Plan: Patient with advanced dementia being care for by her . Check basic blood work today, increase gabapentin to 600 mg 3 times a day for chronic and worsening lower back pain Orders: Orders Comprehensive Met. Panel Today D64.9 - Anemia, unspecified, E03.9 - Hypothyroidism, unspecified, E55.9 - Vitamin D deficiency, unspecified TSH reflex Free T4 Today D64.9 - Anemia, unspecified, E03.9 - Hypothyroidism, unspecified, E55.9 - Vitamin D deficiency, unspecified Vitamin B12 and Folate Today D64.9 - Anemia, unspecified, E03.9 - Hypothyroidism, unspecified, E55.9 - Vitamin D deficiency, unspecified IRON PROFILE Today D64.9 - Anemia, unspecified Complete Blood Count Auto Diff Today D64.9 - Anemia, unspecified, E03.9 - Hypothyroidism, unspecified, E55.9 - Vitamin D deficiency, unspecified Vitamin D 25-OH Total Today D64.9 - Anemia, unspecified, E03.9 - Hypothyroidism, unspecified, E55.9 - Vitamin D deficiency, unspecified Medications: Changed From gabapentin 600 mg (2 x 300 mg) PO BEDTIME 180 caps 3RF To gabapentin 600 mg (2 x 300 mg) PO Q8H 270 caps 3RF Refilled food supplemt, lactose-reduced (Nutritional Drink oral liquid) Jiménez flavor protein drink 1 ea PO BID 60 ea 6RF D64.9 - Anemia, unspecified Quality Reporting (2019) Depression/Bipolar (159/160/161/177) PHQ-9: Total score: 0 Coding Level of Care Code Medicare Subsequent (G0439) Diagnoses Hypothyroidism E03.9 Vitamin D deficiency E55.9 Anemia D64.9 Dementia F03.90 CPT Codes Advance Care Planning - Advance Care Planning discussion: On file, no changes ([id number]) Advance Care Planning - Time spent: 1-15 minutes, on File ([id number]) Additional Codes PHQ-9 - 40880 - PHQ-9 Billing: Yes ([id number]) Advance Care Planning Advance Care Planning discussion: On file, no changes Forms completed: Health Care Proxy Time spent: 1-15 minutes, on File
[2024-12-06 09:40] VITALS: BP 102/66; PULSE 108; TEMP 37.3; O2SAT 95
--- OUTSIDE RECORDS SUMMARY | 2024-12-06 10:20 | XMS_ITS | Continuity of Care Document ---
Author Name [facility] Organization [facility] Care Team Providers Care Qc Manager Name Role Phone [facility] Unavailable Unavailable Problems Combined list of problems from Department of Defense and Veterans Affairs facilities. It does not include entries that were removed or entered in error. Problem Status Onset Date Problem Type Date of Resolution Comments Source Anxiety Disorder NOS * (ICD-9-CM 300.00) Active Condition [place] Contraceptive Devices, Intrauterine Active Condition Sep 27, 2012 Entered By: DENA THOMAS Comment: Mirena 2007 [place] Housing adequate ([place] [id number]) Active Condition [place] Housing problem (SNOMED [place] [id number]) Active Condition [facility] [place] [facility] Hypothyroid (SNOMED CT 09841714) Active Condition [place] Lack of Housing (ICD-9-CM V60.0) Active Condition [facility] Obesity Active Condition [place] Screening Mammogram for Malignant Neoplasms of the Breast, other Active Condition Dec 13, 2012 Entered By: DENA THOMAS Comment: 11/07/12 [place] 1, 01/20/14 BIRADS 1 [place] Tonsillectomy and Adenoidectomy (Under Age 12) Active Condition [facility] Unemployment * (ICD-9-CM V62.0) Active Condition [facility] [place] [facility] Allergies, Adverse Reactions, Alerts Combined list of allergies from Department of Defense and Veterans Affairs facilities. It does not include entries that were removed or entered in error. Substance Category Reaction Severity Reaction type Status Date Reported Comments Source BRAZIL NUTS Propensity to adverse reactions to food (finding) Finding of vomiting active 2 [facility] [place] [facility] Immunizations Combined list of available immunizations from the Department of Defense and Veterans Affairs facilities. Immunization Series Date Given Administered By Site Reaction Lot Number CVX Code Drug Retail Sales Clerk Status Comments Source COVID-19 (PFIZER), MRNA, LNP-S, PF, 30 MCG/0.3 ML DOSE 2 2020 208 complet ed PFR; [id number]; 1 [facility] [employer] COVID-19 (PFIZER), MRNA, LNP-S, PF, 30 MCG/0.3 ML DOSE 1 2020 208 complet ed PFR; [id number]; [facility] INFLUENZA, INJECTABLE, QUADRIVALENT, PRESERVATIVE FREE 2018 150 complet ed Site: Right Deltoid [place] TDAP 2018 115 complet ed Site: Left Deltoid [place] FLU,3 YRS (HISTORICAL) 2011 88 complet ed Site: Left Deltoid [place] PNEUMOCOCCAL, UNSPECIFIED FORMULATION 2011 109 complet ed [place] Encounters Combined list of: 1) Encounters from Department of Veterans Affairs facilities going back up to thelast 18 months. 2) Encounters from the Department of Defense facilities going back up to 280 months. Location Location Details Encounter Type Encounter Number Reason For Visit Attending Provider ADM Date DC Date Status Disposition Source [facility] [facility] Outpatient Encounter [id number] [facility] [employer] Social History Combined list of available smoking, tobacco, and other social history from Department of Defense and Veterans Affairs facilities. 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
== END 2024-12-06 12:35 | disposition home or self-care (01) ==
PROVIDERS: PCP Internal Medicine; Visit Provider Internal Medicine
DX: Z00.00 Encounter for general adult medical examination without abnormal findings (principal); E03.9 Hypothyroidism, unspecified; F03.90 Unspecified dementia, unspecified severity, without behavioral disturbance, psychotic disturbance, mood disturbance, and anxiety; E55.9 Vitamin D deficiency, unspecified; D64.9 Anemia, unspecified

== ENCOUNTER 2025-01-01 13:22 | Outpatient (AMB) | payer OTHER, SELFPAY ==
[2025-01-01 13:08] VITALS: BP 90/60; PULSE 104; O2SAT 95
--- NOTE | 2025-01-01 13:08 | A.OFFVIS_ITS ---
Vital Signs 01/01/25 13:08 Height 4 ft 9 in BP 90/60 Blood Pressure Location Lt brachial Pulse 104 H Pulse Source Pulse Oximeter Pulse Oximetry (%) 95 Oxygen Delivery Method Room Air Intake Visit Reasons: F/U 6 mth Allergies [place] nut Allergy (Verified 01/01/25 13:22) Unknown lactose Allergy (Verified 01/01/25 13:22) Diarrhea HPI HPI F/U 6 mth: Details: She has been doing well She has had no cellulitis. [facility] Medical History Hypothyroidism Dementia Osteomyelitis of right hip Protein malnutrition Decubitus ulcer, unstageable with infection Colovaginal fistula Shortness of breath Rash Elevated LFTs Pressure injury of ankle, unstageable Pressure injury of sacral region, stage 3 Unspecified open wound, right hip, initial encounter Dementia Leukocytosis (leucocytosis) Fever Preoperative cardiovascular examination Pre-op evaluation Dislocation, hip closed History of pacemaker Hip dislocation, right Closed dislocation of right hip Visit for wound check Pacemaker Symptomatic bradycardia Syncope Sinus pause Abnormal EKG Displaced fracture of right femoral neck Closed hip fracture Urinary incontinence Balance disorder Left leg weakness Dementia Memory loss PTSD (post-traumatic stress disorder) Tobacco dependence Lactose intolerance Abnormal urine odor Surgical History S/P Girdlestone procedure History of hemiarthroplasty of right hip Hx of total hip arthroplasty Status post hip hemiarthroplasty No pertinent past surgical history Family History Mother Unknown family medical history Father Unknown family medical history Social History Household Members: Spouse Housing: Apartment Housing Other:: From [facility] Do you presently have visiting nurse or other home services: Yes Unable to assess alcohol history related to: Unable to respond Alcohol intake: never Comment: pt off unit Patient Tobacco Use Status: Former Tobacco user Tobacco use type: Cigarette Cigarettes Per Day: 5.0 Years Smoked: since teen years per pt e-Cigarette/Vaping Use: Never Used Second Hand Smoke Exposure: No Substance Use Type: Marijuana Advance Directives Date on File: 06/06/23 service: No Current occupational status: disabled Current occupation: rt handed Cognitive needs: Yes Hearing needs: No Vision needs: Yes Review of Systems Const All systems reviewed & are unremarkable except as noted in HPI and below Physical Exam Vital Signs: Last Vital Signs Pulse 104 H 01/01/25 13:08 BP 90/60 01/01/25 13:08 Pulse Ox 95 01/01/25 13:08 Oxygen Delivery Method Room Air 01/01/25 13:08 Const General: cooperative Orientation/consciousness: patient oriented x3 HEENT Head: Yes normal to inspection Mouth: Normal oral and palatal mucosa present Eyes General: appearance normal, both eyes and all related structures Pupils: Equal, round and reactive pupils present Resp Effort & Inspection: normal respiratory effort Cardio Rate: regular rate Rhythm: regular rhythm GI Palpation (GI): Soft to palpation and nontender General: Yes no CVA tenderness Back/Spine/Pelvis Back: no CVA tenderness Skin General skin exam: no rashes or lesions noted Neuro General: patient oriented x3 Cranial nerves: Yes CN's II-XII intact bilaterally and Yes Equal, round and reactive pupils present Extrem General: Yes normal to inspection Psych Appearance: grossly normal Assessment & Plan Assessment & Plan (1) MRSA (methicillin resistant staph aureus) culture positive: Comment: She is prone to recurrence infection MRSA. Code(s): Z22.322 - Carrier or suspected carrier of Methicillin resistant Staphylococcus aureus Category: Medical Plan: Continue Doxycycline See in six months Coding Level of Care Code Est Pt Level 3 (05651) Diagnoses MRSA (methicillin resistant staph aureus) culture positive Z22.322
--- OUTSIDE RECORDS SUMMARY | 2025-01-01 13:39 | XMS_ITS | Continuity of Care Document ---
Author Name [facility] Organization [facility] Care Team Providers Care Physician Assistant Name Role Phone [facility] Unavailable Unavailable Problems Combined list of problems from Department of Defense and Veterans Affairs facilities. It does not include entries that were removed or entered in error. Problem Status Onset Date Problem Type Date of Resolution Comments Source Anxiety Disorder NOS * (ICD-9-CM 300.00) Active Condition [facility] Contraceptive Devices, Intrauterine Active Condition Sep 27, 2012 Entered By: DENA THOMAS Comment: Mirena 2007 [place] Housing adequate ([place] 431038709) Active Condition [facility] Housing problem ([place]ED [place] 432122214) Active Condition [facility] [place] [facility] Hypothyroid (SNOMED [place] 15155846) Active Condition [facility] Lack of Housing (ICD-9-CM V60.0) Active Condition [facility] Obesity Active Condition [facility] Screening Mammogram for Malignant Neoplasms of the Breast, other Active Condition Dec 13, 2012 Entered By: DENA THOMAS Comment: 11/07/12 Bir[place] 1, 01/20/14 BIRADS 1 [place] Tonsillectomy and Adenoidectomy (Under Age 12) Active Condition [facility] Unemployment * (ICD-9-CM V62.0) Active Condition [facility] [place] [facility] Allergies, Adverse Reactions, Alerts Combined list of allergies from Department of Defense and Veterans Affairs facilities. It does not include entries that were removed or entered in error. Substance Category Reaction Severity Reaction type Status Date Reported Comments Source BRAZIL NUTS Propensity to adverse reactions to food (finding) Finding of vomiting active 2 [facility] [place] [facility] Immunizations Combined list of available immunizations from the Department of Defense and Veterans Affairs facilities. Immunization Series Date Given Administered By Site Reaction Lot Number CVX Code Drug Medical Records Assistant Status Comments Source COVID-19 (PFIZER), MRNA, LNP-S, PF, 30 MCG/0.3 ML DOSE 2 2020 208 complet ed PFR; [id number]; 1 [facility] COVID-19 (PFIZER), MRNA, LNP-S, PF, 30 MCG/0.3 ML DOSE 1 2020 208 complet ed PFR; [id number]; 1 [facility] INFLUENZA, INJECTABLE, QUADRIVALENT, PRESERVATIVE FREE 2018 150 complet ed Site: Right Deltoid [place] TDAP 2018 115 complet ed Site: Left Deltoid [place] FLU,3 YRS (HISTORICAL) 2011 88 complet ed Site: Left Deltoid [place] PNEUMOCOCCAL, UNSPECIFIED FORMULATION 2011 109 complet ed [place] Encounters Combined list of: 1) Encounters from Department of Veterans Affairs facilities going backup to the last 18 months, not all VA inpatient encounters are included; 2) Encounters from the Department of Defense facilities going backup to 280 months. Location Location Details Encounter Type Encounter Number Reason For Visit Attending Provider ADM Date DC Date Status Disposition Source [facility] [place] [facility] Outpatient Encounter [id number] [facility] Social History Combined list of available smoking, tobacco, and other social history from Department of Defense and Veterans Affairs facilities. 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
--- OUTSIDE RECORDS SUMMARY | 2025-01-01 13:39 | XMS_ITS ---
Author Organization [facility] Address Unknown Allergies, Adverse Reactions, Alerts Substance Reaction Status Noted Date Resolved Date Lactose active 07/29/2021 [place] Nut active 07/29/2021 Problems Problem Status Start Date End Date ENCOUNTER FOR OTHER ORTHOPED IC AFTERCARE (Primary) (Z47.89 - ICD-10-CM) ACTIVE 07/29/2021 PAIN IN UNSPECIFIED HIP (M25.559 - ICD-10-CM) ACTIVE 07/29/2021 UNSPECIFIED OPEN WOUND, RIGH T HIP, SUBSEQUENT ENCOUNTER (S71.001D - ICD-10-CM) ACTIVE 07/29/2021 UNSPECIFIED DISLOCATION OF R IGHT HIP, SUBSEQUENT ENCOUNTER (S73.004D - ICD-10-CM) ACTIVE 07/29/2021 METHICILLIN RESISTANT STAPHY LOCOCCUS AUREUS INFECTION THE CAUSE OF DISEASES CLASSIFIED ELSEWHERE (B95.62 - ICD-10-CM) ACTIVE 07/29/2021 PRESENCE OF CARDIAC PACEMAKER (Z95.0 - ICD-10-CM) ACTI VE 07/29/2021 COVID-19 (U07.1 - ICD-10-CM) ACTIVE 12/23/2021 ELEVATED WHITE BLOOD CELL CO UNT, UNSPECIFIED (D72.829 - ICD-10-CM) ACTIVE 12/10/2021 BACTEREMIA (R78.81 - ICD-10-CM) ACTIVE UNSPECIFIED DEMENTIA, UNSPEC IFIED SEVERITY, WITHOUT BEHAVIORAL DISTURBANCE, PSYCHOTIC DISTURBANCE, MOOD DISTURBANCE, AND ANXIETY (F03.90 - ICD-10-CM) ACTIVE 08/09/2021 BRADYCARDIA, UNSPECIFIED (R00.1 - ICD-10-CM) ACTIVE 07/29/2021 OTHER ABNORMALITIES OF GAIT AND MOBILITY (R26.89 - ICD-10-CM) ACTIVE 07/29/2021 OTHER DISORDERS OF PLASMA-[place] OTEIN METABOLISM, NOT ELSEWHERE CLASSIFIED (E88.09 - ICD-10-CM) ACTIVE 07/29/2021 NICOTINE DEPENDENCE, UNSPECI FIED, UNCOMPLICATED (F17.200 - ICD-10-CM) ACTIVE 07/29/2021 WEAKNESS (R53.1 - ICD-10-CM) ACTIVE 07/29/2021 INFECTION FOLLOWING A PROCED URE, DEEP INCISIONAL SURGICAL SITE, SEQUELA (T81.42XS - ICD-10-CM) ACTIVE 07/29/2021 Results * XRAY CHEST 1 VIEW Performed by: [employer] Component Value Range Date XRAY CHEST 1 VIEW XRAY CHEST 1 VIEW Co mparison: 11/03/2021ee NoteFINDINGS: No definite acute infiltrate, pneumothorax, congestion or pleural effusion is seen. The transverse diameter of the heart is grossly within normal limits, allowing for technique. There are no acute osseous abnormalities. There is a catheter tip in the superior vena cava. There is a pacemaker in position.CONCLUSION: No apparent acute cardiopulmonary process.ELECTRONICALLY SIGNED BY ALLY TURCIOS D.O. 11/18/2021 5:32:36 PM EST.Reason for Study: D72.828 OTHER ELEVATED WHITE BLOOD CELL COUNTPrincipal Result Manager Hair: ALLY TURCIOS ([id number])Nursing Program Director: MIMI PEREZ (BBIRKS)Insulation Inspector Nursing Program Director: MARIA DE JESUS 11/18/2021 05:33 pm EST * XRAY CHEST 2 VIEW Performed by: [employer] Component Value Range Date XRAY CHEST 2 VIEW XRAY CHEST 2 VIEWFIN DINGS: Lungs: No focal consolidation. Pulmonary vasculature is within normalReason for Study: M25.551 PAIN IN RIGHT HIPPrincipal Result Manager Hair: MOHAN FORD ([id number])Nursing Program Director: CORNEL TAMAYO (DCONDON)Insulation Inspector Nursing Program Director: MARIA DE JESUS 11/03/2021 12:19 pm EST * HIP UNI W OR W/O PELVIS 1 VIEW Performed by: [employer] Component Value Range Date HIP UNI W OR W/O PELVIS 1 VIEW HIP UNI W OR W/O PELVIS 1 VIEW, RIGHTFINDINGS: Dislocated superior femoral head. Fragmented proximal femur with callous. Mild swelling.CONCLUSION: Age indeterminate fracture dislocation of the proximal femur. Cannot exclude infection. Recommend MRI.ELECTRONICALLY SIGNED BY MOHAN FORD M.D. 11/03/2021 12:18:54 PM EST.Reason for Study: M25.551 PAIN IN RIGHT HIPPrincipal Result Manager Hair: MOHAN FORD ([id number])Nursing Program Director: CORNEL TAMAYO (DCONDON)Insulation Inspector Nursing Program Director: MARIA DE JESUS 11/03/2021 12:19 pm EST * XRAY CHEST 1 VIEW Performed by: [employer] Component Value Range Date XRAY CHEST 1 VIEW XRAY CHEST 1 VIEWSee NoteFINDINGS: The lungs are free of active pulmonary disease. There is no mass, infiltrate, consolidation, or effusion. There is no adenopathy, the mediastinum is normal. The osseous structures are normal. There is a pacemaker in position.CONCLUSION: Normal chest no change from 09/22/2021LECTRONICALLY SIGNED BY SUZANNA JAUREGUI M.D. 10/31/2021 1:36:36 PM EST.Reason for Study: D72.829 ELEVATED WHITE BLOOD CELL COUNT, UNSPECIFIEDPrincipal Result Manager Hair: JAYDON JAUREGUI ([id number])Nursing Program Director: YONATAN WALLS (MCRUZ)Insulation Inspector Nursing Program Director: MARIA DE JESUS 10/31/2021 01:37 p m EST * XRAY CHEST 1 VIEW Performed by: [employer] Component Value Range Date XRAY CHEST 1 VIEW XRAY CHEST 1 VIEWSee NoteFINDINGS: The lungs are free of active pulmonary disease. There is no mass, infiltrate, consolidation, or effusion. There is no adenopathy, the mediastinum is normal. The osseous structures are normal. There is a pacemaker in position.CONCLUSION: Normal chest no change from 06/21/2021LECTRONICALLY SIGNED BY SUZANNA JAUREGUI M.D. 09/22/2021 1:36:49 PM EST.Reason for Study: R05.9 COUGH, UNSPECIFIEDPrincipal Result Manager Hair: JAYDON JAUREGUI ([id number])Nursing Program Director: YONATAN WALLS (MCRUZ)Insulation Inspector Nursing Program Director: MARIA DE JESUS 09/22/2021 01:37 p m EST Encounters Encounter Performer Performer Role Encounter Diagnoses Location Date Leave - z. [facility] - Other [facility] 1 05:51 pm EDT - 1 07:00 pm EDT Leave - z. [facility] [place], [place] - Acute care hospital [facility] 1 06:23 pm EDT - 1 04:30 pm EST Discharge - Discharged to home or self care - group home [facility] 1 12:00 am EST - 2 10:14 am EDT Reason For Referral Skin wound or Ulcer Immunizations Vaccine Date Influenza 11/19/2021 12:00 am EST PCV 13 11/19/2021 12:00 am EST Covid-19 Moderna Booster 50mcg(0.25ml)CV X 207 11/03/2021 12:00 am EST Covid-19 Vaccine (Pfizer CVX 208) dose # 1 01/21/2021 12:00 am EST Covid-19 Vaccine (Pfizer CVX 208) dose # 2 02/11/2021 12:00 am EDT Social History
--- OUTSIDE RECORDS SUMMARY | 2025-01-01 13:39 | XMS_ITS | Clinical Summary ---
Author Organization [facility] Address [address] [place] [address] Care Team Providers Care Grades 9 Through 12 Teacher Name Role Phone Marry Campuzano MD Primary Care Provider [phone] Medications Medication Sig Dispensed Refills Start Date End Date Status baclofen (LIORESAL) 10 MG tablet Take 1 tablet (10 mg total) by mouth daily. 0 11/14/2022 Active escitalopram (LEXAPRO) tablet 10 mg Take 1 tablet (10 mg total) by mouth daily. 0 11/14/2022 Active gabapentin (NEURONTIN) 100 MG capsule TAKE 2 CAPSULES BY MOUTH EVERY MORNING AND 3 CAPSULES EVERY NIGHT AT BEDTIME 0 11/21/2022 Active levothyroxine (SYNTHROID) tablet 100 mcg Take 1 tablet (100 mcg total) by mouth daily. 0 09/28/2022 Active folic acid (FOLVITE) tablet 1 mg Take 1 tablet (1 mg total) by mouth daily. 30 tablet 1 12/13/2022 Active vitamin B-12 1000 MCG tablet Take 1 tablet (1,000 mcg total) by mouth daily. 30 tablet 0 12/13/2022 Active vitamin D3 (cholecalciferol) 25 MCG (1000 UT) tablet Take 1 tablet (25 mcg total) by mouth daily. 60 tablet 0 12/13/2022 Active Active Problems Problem Noted Date Diagnosed Date Bacteremia due to methicilli n resistant Staphylococcus aureus 12/08/2022 Infection 12/07/2022 Overview: Added automatically from request for surgery [id number] Social History Tobacco Use Types Packs/Day Years Used Date Smoking Tobacco: Never Assessed Sex and Gender Information Value Date Recorded Sex Assigned at Not on file Gender Identity Not on file Sexual Orientation Not on file Job Start Date Occupation Industry Not on file Not on file Not on file Last Filed Vital Signs Vital Sign Reading Time Taken Comments Blood Pressure 100/60 12/16/2022 9:00 AM EST Pulse 86 12/16/2022 5:39 AM EST Temperature 36.6 ??C (97.8 ??F) 12/16/2022 9:00 AM ES T Respiratory Rate 13 12/16/2022 5:39 AM EST Oxygen Saturation 93% 12/16/2022 9:00 AM EST Inhaled Oxygen Concentration - - Weight 54.7 kg (120 lb 9.6 oz) 12/08/2022 1:00 A M EST Height 157.5 cm (5' 2 ) 12/08/2022 1:00 AM EST Body Mass Index 22.06 12/08/2022 1:00 AM EST Plan of Treatment Health Maintenance Due Date Last Done Comments Hepatitis B Vaccines (1 of 3 - 3-dose series) 1965 Hepatitis C Screening 1965 COVID-19 Vaccine (#1) 1965 Depression Screening 1977 Preventative Health Evaluation 1983 DTap / Tdap / Td (1 - Tdap) 02/23/1984 Cervical Cancer Screening (P ap Smear) 1986 Colon Cancer Screening (Colonoscopy) 2010 Breast Cancer Screening (Mammogram) 2015 Shingrix-Zoster Vaccine (1 of 2) 2015 Influenza Vaccine (#1) 2024 Pneumococcal Vaccine Aged Out No long er eligible based on patient's age to complete this topic RSV Ped < 20 months Aged Out No longe r eligible based on patient's age to complete this topic Advance Directives For more information, please contact: [phone] Latest Code Status on File Code Status Date Activated Date Inactivated Comments Full Code 12/08/2022 3:23 PM 12/16/2022 10:10 PM This code status was ascertained in the following way: post-op . Code Status History Code Status Date Activated Date Inactivated Comments Full Code 12/08/2022 1:21 AM 12/08/2022 3:23 PM This code status was ascertained in the following way: per documentation from OSH, will need to confirm with patient's spouse (healthcare proxy). Care Teams Grades 9 Through 12 Teacher Relationship Specialty Start Date End Date Marry Campuzano MD [address] [place] [phone] PCP - General Button Cutting Machine Operator 12/07/22
--- OUTSIDE RECORDS SUMMARY | 2025-01-01 13:39 | XMS_ITS | Clinical Summary ---
Author Organization [facility] Address [address] [place] [address] Care Team Providers Care Land Surveyor Name Role Phone Unavailable Primary Care Provider Unavailabl e Allergies Active Allergy Reactions Criticality Noted Date Comments Lactose (Mild /Moderate) Unknown/Patient and Family Unable to Define Medium 03/05/2023 Medications Medication Sig Dispensed Refills Start Date End Date Status escitalopram (LEXAPRO) 10 MG tablet Take 1 tablet (10 mg total) by mouth daily. Active baclofen (LIORESAL) 10 MG tablet Take 1 tablet (10 mg total) by mouth daily. Active levothyroxine (SYNTHROID, LEVOTHROID) 100 MCG tablet Take 1 tablet (100 mcg total) by mouth daily on an empty stomach. Active gabapentin (NEURONTIN) 100 MG capsule Take 1 capsule (100 mg total) by mouth 3 (three) times a day. Active cholecalciferol (CHOLECALCIFEROL) 25 MCG (1000 UT) tablet Take 1 tablet (1,000 Units total) by mouth daily. Active cyanocobalamin (VITAMIN B-12) 1000 MCG tablet Take 1 tablet (1,000 mcg total) by mouth daily. Active acetaminophen (TYLENOL) 325 MG tabletIndications:S eptic arthritis (HCC) Take 2 tablets (650 mg total) by mouth 4 times daily (every 6 hours) as needed for mild pain, headaches or fever. 03/13/2023 Active lidocaine (PROZENA) 4 % patchIndications:Se ptic arthritis (HCC) Place 1 patch on the skin daily as needed for mild pain (to right knee as needed). 30 patch 03/13/2023 Active multivitamin with minerals Tab tabletIndications:S eptic arthritis (HCC) Take 1 tablet by mouth daily. Do not start before March 14, 2023. 30 tablet 03/14/2023 Active cefTRIAXone (ROCEPHIN) 2 g IV PushIndications:Sep tic arthritis (HCC) Infuse 2 g into a venous catheter every 24 hours. Duration as per [facility] and ID; give via PICC line 60 g 1 03/14/2023 Active Active Problems Problem Noted Date Diagnosed Date Osteomyelitis of right hip 03/15/2023 PTSD (post-traumatic stress disorder) 03/15/2023 Early onset Alzheimer's dementia 03/15/2023 Bedbound 03/15/2023 Total self-care deficit 03/15/2023 Hypothyroid 03/15/2023 Sacral decubitus ulcer 03/15/2023 Hypokalemia 03/15/2023 Moderate protein-calorie malnutrition 03/06/2023 Overview (03/06/2023): PO intake <75% of estimated energy needs > 1 month and muscle mass loss (temporal) Pressure injury of coccygeal region, stage 3 Oropharyngeal dysphagia 03/05/2023 Contracture of lower leg joint 03/05/2023 Resolved Problems Problem Noted Date Diagnosed Date Resolved Date Septic arthritis 03/05/2023 03/15/2023 Social History Tobacco Use Types Packs/Day Years Used Date Smoking Tobacco: Former Cigarettes 0.3 15 2 007 - 2021 Smokeless Tobacco: Current Tobacco Cessation:Ready to Q uit: Not Asked; Counseling Given: Not Answered AUDIT-C Answer Date Recorded Q1: How often do you have a drink containing alc ohol? Patient declined 03/05/2023 Q2: How many drinks containi ng alcohol do you have on a typical day when you are drinking? Patient declined 03/05/2023 Q3: How often do you have si x or more drinks on one occasion? Patient declined 03/05/2023 Sex and Gender Information Value Date Recorded Sex Assigned at Female 03/05/2023 12:42 PM EDT Gender Identity Female 03/05/2023 12:42 PM EDT Sexual Orientation Heterosexual (straight) 03/05 12:42 PM EDT Last Filed Vital Signs Vital Sign Reading Time Taken Comments Blood Pressure 90/60 03/15/2023 11:18 AM EDT Pulse 90 03/15/2023 11:18 AM EDT Temperature 36.7 ??C (98.1 ??F) 03/15/2023 1 1:18 AM EDT Respiratory Rate 18 03/15/2023 11:1 8 AM EDT Oxygen Saturation 96% 03/15/2023 11: 18 AM EDT Inhaled Oxygen Concentration - - Weight 50.7 kg (111 lb 12.4 oz) 03/05/2023 4:12 PM EDT Height 157.5 cm (5' 2 ) 03/05/2023 4:12 PM EDT Body Mass Index 20.44 03/05/2023 4:12 PM EDT Plan of Treatment Health Maintenance Due Date Last Done Comments Hepatitis C Virus Screening 1965 HIV Screening 1978 DTaP/Tdap/Td Vaccines (1 - Tdap) 02/23/1984 Hepatitis B Vaccines (1 of 3 - 19+ 3-dose series) 02/23/1984 Pap Smear (Ages 21-65) 1986 Mammogram 2005 Colonoscopy 2010 Pneumococcal Vaccines 50+ (1 of 1 - PCV) 2015 Zoster (Shingles) Vaccine (1 of 2) 2015 Influenza Vaccine 06/13/2024 COVID-19 Vaccine (1 - 2023-2 5 season) 2024 Pneumococcal Vaccine: Pediat nora (0-5 Years) and At-Risk Patients (6 to 49 Years) Aged Out No longer eligible b ased on patient's age to complete this topic Advance Directives * Full Code (Latest Code Status on File) Date Activated Date Inactivated Comments 03/05/2023 1:33 PM
== END 2025-01-01 13:32 | disposition home or self-care (01) ==
LOC: HO.HID 13:22
PROVIDERS: PCP Internal Medicine; Visit Provider Internal Medicine
DX: Z22.322 Carrier or suspected carrier of Methicillin resistant Staphylococcus aureus (principal)
CPT/HCPCS: 99213

== ENCOUNTER → 2025-01-01 13:22 | Outpatient (BNVA) | payer OTHER, SELFPAY | PROVIDERS: PCP Internal Medicine; Visit Provider Internal Medicine | DX: Z22.322 Carrier or suspected carrier of Methicillin resistant Staphylococcus aureus (principal) | CPT/HCPCS: 99212 ==

== ENCOUNTER 2025-06-20 13:43 | Outpatient (RCR) | payer OTHER, SELFPAY | END 2025-06-20 16:47 | disposition home or self-care (01) | LOC: HO.WCC 13:43 | PROVIDERS: PCP Internal Medicine; Visit Provider Surgery | DX: M24.562 Contracture, left knee (principal); M24.561 Contracture, right knee; F03.90 Unspecified dementia, unspecified severity, without behavioral disturbance, psychotic disturbance, mood disturbance, and anxiety; Z09 Encounter for follow-up examination after completed treatment for conditions other than malignant neoplasm; Z87.2 Personal history of diseases of the skin and subcutaneous tissue; Z87.81 Personal history of (healed) traumatic fracture; Z87.891 Personal history of nicotine dependence | CPT/HCPCS: 99214 ==

== ENCOUNTER 2025-07-02 14:14 | Outpatient (AMB) | payer OTHER, SELFPAY ==
--- OUTSIDE RECORDS SUMMARY | 2025-05-22 20:00 | XMS_ITS | Continuity of Care Document ---
Author Name [facility] Organization [facility] Care Team Providers Care Billet Shearer Name Role Phone [facility] Unavailable Unavailable Problems Combined list of problems from Department of Defense and Veterans Affairs facilities. It does not include entries that were removed or entered in error. Problem Status Onset Date Problem Type Date of Resolution Comments Source Anxiety Disorder NOS * (ICD-9-CM 300.00) Active Condition [place] Contraceptive Devices, Intrauterine Active Condition Sep 27, 2012 Entered By: DENA THOMAS Comment: Mirena 2007 [place] Housing adequate (SNOMED [place] 133172482) Active Condition [place] Housing problem (SNOMED CT 463249419) Active Condition [facility] [place] [facility] Hypothyroid (SNOMED CT 96719295) Active Condition [place] Lack of Housing (ICD-9-CM V60.0) Active Condition [facility] Obesity Active Condition [place] Screening Mammogram for Malignant Neoplasms of the Breast, other Active Condition Dec 13, 2012 Entered By: DENA THOMAS Comment: 11/07/12 Birads 1, 01/20/14 BIRADS 1 [place] Tonsillectomy and Adenoidectomy (Under Age 12) [facility] Unemployment * (ICD-9-CM V62.0) Active Condition [facility] [place] [facility] Allergies, Adverse Reactions, Alerts Combined list of allergies from Department of Defense and Veterans Affairs facilities. It does not include entries that were removed or entered in error. Substance Category Reaction Severity Reaction type Status Date Reported Comments Source BRAZIL NUTS Propensity to adverse reactions to food (finding) Finding of vomiting active 2 [facility] [place] [facility] Immunizations Combined list of available immunizations from the Department of Defense and Veterans Affairs facilities. Immunization Series Date Given Administered By Site Reaction Lot Number CVX Code Drug Mastic Worker Status Comments Source COVID-19 (PFIZER), MRNA, LNP-S, PF, 30 MCG/0.3 ML DOSE 2 2020 208 complet ed PFR; [id number]; 1 [facility] COVID-19 (PFIZER), MRNA, LNP-S, PF, 30 MCG/0.3 ML DOSE 1 2020 208 complet ed PFR; [id number]; 1 [facility] INFLUENZA, INJECTABLE, QUADRIVALENT, PRESERVATIVE FREE 2018 150 [...] to the last 18 months, not all [place] inpatient encounters are included; 2) Encounters from the Department of Defense facilities going backup to 280 months. Location Location Details Encounter Type Encounter Number Reason For Visit Attending Provider ADM Date DC Date Status Dis[facility] Outpatient Encounter [id number] 01/19 [facility] [place] Outpatient Encounter [id number] 04/01 [facility] [place] [facility] [place] [facility] Outpatient Encounter [id number] 05/23 [facility] Social History Combined list of available smoking, tobacco, and other social history from Department of Defense and Veterans Affairs facilities. 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
--- NOTE | 2025-07-02 14:25 | A.OFFVIS_ITS ---
Intake Visit Reasons: 6 month follow up Allergies [place] nut Allergy (Verified 01/01/25 13:22) Unknown lactose Allergy (Verified 01/01/25 13:22) Diarrhea HPI HPI 6 month follow up: Details: This is a televisit She is doing well and no recurrence MRSA. [facility] Medical History Hypothyroidism Dementia Osteomyelitis of right hip Protein malnutrition Decubitus ulcer, unstageable with infection Colovaginal fistula Shortness of breath Rash Elevated LFTs Pressure injury of ankle, unstageable Pressure injury of sacral region, stage 3 Unspecified open wound, right hip, initial encounter Dementia Leukocytosis (leucocytosis) Fever Preoperative cardiovascular examination Pre-op evaluation Dislocation, hip closed History of pacemaker Hip dislocation, right Closed dislocation of right hip Visit for wound check Pacemaker Symptomatic bradycardia Syncope Sinus pause Abnormal EKG Displaced fracture of right femoral neck Closed hip fracture Urinary incontinence Balance disorder Left leg weakness Dementia Memory loss PTSD (post-traumatic stress disorder) Tobacco dependence Lactose intolerance Abnormal urine odor Surgical History S/P [place] procedure History of hemiarthroplasty of right hip Hx of total hip arthroplasty Status post hip hemiarthroplasty No pertinent past surgical history Family History Mother Unknown family medical history Father Unknown family medical history Social History Household Members: Spouse Housing: Apartment Housing [facility] Do you presently have visiting nurse or other home services: Yes Unable to assess alcohol history related to: Unable to respond Alcohol intake: never Comment: pt off unit Patient Tobacco Use Status: Former Tobacco user Tobacco use type: Cigarette Cigarettes Per Day: 5.0 Years Smoked: since teen years per pt e-Cigarette/Vaping Use: Never Used Second Hand Smoke Exposure: No Substance Use Type: Marijuana Advance Directives Date on File: 06/06/23 service: No Current occupational status: disabled Current occupation: rt handed Cognitive needs: Yes Hearing needs: No Vision needs: Yes Review of Systems Const All systems reviewed & are unremarkable except as noted in HPI and below Telehealth Telehealth Telehealth Platform: Telephone Location of provider rendering services: practice address Location of patient: address on file Patient Identification confirmed using: Name, : Yes Telehealth method: voice only Patient verbally consented to treatment: Yes Patient verbally consented to billing insurance company: Yes Patient informed of any privacy concerns related to visit: Yes Assessment & Plan Assessment & Plan (1) Osteomyelitis of right hip: Comment: She is doing better on preventive treatment for OM sacrum. Code(s): M86.9 - Osteomyelitis, unspecified Category: Medical Plan: Continue suppressive Doxycycline See in person if able in six months. Medications: Refilled doxycycline hyclate 100 mg PO BID 60 tabs 5RF 30 days Coding Level of Care Code Est Pt Level 3 (09336) Diagnoses Osteomyelitis of right hip M86.9
--- OUTSIDE RECORDS SUMMARY | 2025-07-02 15:12 | XMS_ITS | Clinical Summary ---
Author Organization [facility] Address [address] [place] [address] Care Team Providers Care Help Desk Team Leader Name Role Phone Marry Campuzano MD Primary Care Provider [phone] Medications Medication Sig Dispensed Refills Start Date [...] Overview: Added automatically from request for surgery [id number] Social History Tobacco Use Types Packs/Day Years [...] 86 12/16/2022 5:39 AM EST Temperature 36.6 C (97.8 F) 12/16/2022 9:00 AM EST Respiratory Rate 13 12/16/2022 5:39 AM EST Oxygen Saturation 93% 12/16/2022 9:00 AM EST Inhaled Oxygen Concentration - - Weight 54.7 kg (120 lb 9.6 oz) 12/08/2022 1:00 A M EST Height 157.5 cm (5' 2 ) 12/08/2022 1:00 AM EST Body Mass Index 22.06 12/08/2022 1:00 AM EST Plan of Treatment Health Maintenance Due Date Last Done Comments Hepatitis C Screening 1965 COVID-19 Vaccine (#1) 1965 Depression Screening 1977 Preventative Health Evaluation 1983 DTap / Tdap / Td (1 - Tdap) 02/23/1984 Cervical Cancer Screening (P ap Smear) 1986 Colon Cancer Screening (Colonoscopy) 2010 Breast Cancer Screening (Mammogram) 2015 Shingrix-Zoster Vaccine (1 of 2) 2015 Influenza Vaccine (#1) 2025 RSV Adult > 60+ Yrs or Pregn ant (1 - 1-dose 75+ series) 02/23/2040 Hepatitis B Vaccines Aged Out No long er eligible based on patient's age to complete this topic Pneumococcal Vaccine Aged Out No long er eligible based on patient's age to complete this topic RSV Ped < 20 months Aged Out No longe r eligible based on patient's age to complete this topic Advance Directives For more information, please contact: [phone] Latest Code Status on File Code Status [...] with patient's spouse (healthcare proxy). Care Teams Help Desk Team Leader Relationship Specialty Start Date End Date Marry Campuzano MD [address] [place] [address] PCP - General Painter Supervisor 12/07/22
--- OUTSIDE RECORDS SUMMARY | 2025-07-02 15:12 | XMS_ITS | Clinical Summary ---
Author Organization [facility] Address [address] [place] [address] Care Team Providers Care Equine Vet Name Role Phone Unavailable Primary Care Provider Unavailabl e Allergies Active Allergy Reactions Criticality Noted Date Comments Lactose (Mild /Moderate) Unknown/Patient and Family Unable to Define Medium 03/05/2023 Medications escitalopram (LEXAPRO) 10 MG tablet Take 1 [...] 3 (three) times a day. Active cholecalciferol (CHOLECALCIFERO L) 25 MCG (1000 UT) tablet Take 1 tablet (1,000 Units total) by mouth daily. Active cyanocobalamin (VITAMIN B-12) 1000 MCG tablet Take 1 tablet (1,000 mcg total) by mouth daily. Active acetaminophen (TYLENOL) 325 MG tabletIndicatio ns:Septic arthritis (HCC) Take 2 tablets (650 mg total) by mouth 4 times daily (every 6 hours) as needed for mild pain, headaches or fever. 3 Active lidocaine (PROZENA) 4 % patchIndication s:Septic arthritis (HCC) Place 1 patch on the skin daily as needed for mild pain (to right knee as needed). 30 patch 3 Active multivitamin with minerals Tab tabletIndicatio ns:Septic arthritis (HCC) Take 1 tablet by mouth daily. Do not start before March 14, 2023. 30 tablet 3 Active cefTRIAXone (ROCEPHIN) 2 g IV PushIndications :Septic arthritis (HCC) Infuse 2 g into a venous catheter every 24 hours. Duration as per [facility] and ID; give via PICC line 60 g 1 Active Active Problems Problem Noted Date Diagnosed [...] drinks on one occasion? Patient declined 03/05/2023 Comments Unknown Sex and Gender Information Value Date Recorded Sex Assigned at Female 03/05/2023 12:42 PM EDT Legal Sex Female 6:35 PM EST Gender Identity Female 03/05/2023 12:42 PM EDT Sexual Orientation Heterosexual (straight) 03/05 12:42 PM EDT Last Filed Vital Signs Vital Sign Reading Time Taken Comments Blood Pressure 90/60 03/15/2023 11:18 AM EDT Pulse 90 03/15/2023 11:18 AM EDT Temperature 36.7 C (98.1 F) 03/15/2023 11:18 AM EDT Respiratory Rate 18 03/15/2023 11:1 [...] 1978 DTaP/Tdap/Td Vaccines (1 - Tdap) 02/23/1984 Pap Smear (Ages 21-65) 1986 Mammogram 2005 Colonoscopy 2010 Pneumococcal Vaccines 50+ (1 of 1 - PCV) 2015 Zoster (Shingles) Vaccine (1 of 2) 2015 COVID-19 Vaccine ( - 2023-2 5 season) 2024 Influenza Vaccine 06/13/2025 RSV Vaccine 60 years and old er and Patients (1 - 1-dose 75+ series) 02/23/2040 Hepatitis B Vaccines Aged Out No long er eligible based on patient's age to complete this topic Insurance MISC MGD MEDICARE OUT OF NETWORK Advance Directives * Full Code (Latest Code Status on File) Date Activated Date Inactivated Comments 03/05/2023 1:33 PM
--- OUTSIDE RECORDS SUMMARY | 2025-07-02 15:12 | XMS_ITS ---
[facility] Name [facility] Organization Unknown Encounters Encounter Type Encounter Reason Primary Diagnosis Location Date Inpatient Pyogenic arthrit is, unspecified [facility] [employer] 03/05/2023 Care Team Organization Name Specialty Phone Email Start Date End Da te [facility] 04/03/2025 [employer] [facility] 03/05/2023 03/05/[address] [facility] 03/05/2023 [facility] JUANITA GALARZA Primary Care 12/08/2022 12/08/2022
--- OUTSIDE RECORDS SUMMARY | 2025-07-02 15:12 | XMS_ITS ---
Author Organization [facility] Care Team Providers Care Mini Shifter Name Role Phone Priscilla Fernandez Unavailable Unavailable Eileen Ladd Unavailable Unavailable Ofelia FLORIST SUPPLIES SALESPERSON, Margot Chan Unavailable Unavailable Caitlin Reynoso Unavailable Unavailable Planetania, Nancy Unavailable Unavailable Yesika Waters Unavailable Unavailable Mara Guerin Unavailable Unavailable Minh Jung Unavailable Unavailable Allergies and adverse reactions Code CodeSystem Substance Reaction Severity StartDate Concern Status Lactose Unknown 07/29/2021 active Tyler Nut Unknown 07/29/2021 active Care Team Name Role Address Phone Organization Dates Eileen Ladd PCP [address] [address], [facility] (Office): : [facility] 07/29/2021 - 02/08/2022 [place], [address], [facility] (Office): : [facility] 07/29/2021 - 02/08/2022 Margot Gilbert NP [address] [address], [facility] (Office): [facility] 07/29/2021 - 02/08/2022 Caitlin Reynoso [address] [facility] [address], [place] [address], [facility] (Office): : [phone] [facility] 07/29/2021 - 02/08/2022 [facility] [place], [facility] (Office): : [facility] 07/29/2021 - 02/08/2022 Yesikakendall Waters [address] [facility] [address] [address], [facility] (Office): : [phone] [facility] 07/29/2021 - 02/08/2022 Mara Guerin [address] [facility] [address], [place], [address], [facility] (Office): : [phone] [facility] 07/29/2021 - 02/08/2022 Minh Jung [address] [facility] [address], [place], [address], [facility] (Office): : [facility] 07/29/2021 - 02/08/2022 Immunizations Immunization Status Vaccine Details Vaccine Code CodeSystem Date Notes Influenza completed Influenza, high-dose, split virus, trivalent, injectable, preservative free lotNumber: [id number] expiry: 05/12/2022 Mfg: [employer] 135 CVX created date: 11/22/2021 consent date: 11/22/2021 administer ed date: 11/19/2021 Educated by on 11/10/2021 PCV 13 completed pneumococcal conjugate vaccine, 13 valent lotNumber: [id number] expiry: 07/14/2023 Mfg: [employer] 133 CVX created date: 11/22/2021 consent date: 11/22/2021 administer ed date: 11/19/2021 Educated by on 11/10/2021 Covid-19 Moderna Booster 50mcg(0.25ml)CV X 207 completed SARS-COV-2 (COVID-19) vaccine, mRNA, spike protein, LNP, preservative free, 100 mcg/0.5mL dose or 50 mcg/0.25mL dose lotNumber: [id number] Given 0.25 ml Left Deltoid intramuscularly 207 CVX created date: 11/05/2021 consent date: 11/05/2021 administer ed date: 11/03/2021 Educated by on 11/03/2021 Covid-19 Vaccine ([employer] CVX 208) dose #1 completed SARS-COV-2 (COVID-19) vaccine, mRNA, spike protein, LNP, preservative free, 30 mcg/0.3mL dose 208 CVX created date: 09/23/2021 administer ed date: 01/21/2021 Covid-19 Vaccine (Pfizer CVX 208) dose #2 completed SARS-COV-2 (COVID-19) vaccine, mRNA, spike protein, LNP, preservative free, 30 mcg/0.3mL dose 208 CVX created date: 09/23/2021 administer ed date: 02/11/2021 Mental Status Section Date Assessment Total Score Description 02/08/2022 BIMS 00 severe cognitiv e impairment CAM 0 No delirium ind icated PHQ-9 00 11/24/2021 BIMS 00 severe cognitiv e impairment CAM 0 No delirium ind icated PHQ-9 00 Problems Problem # Description Date of onset Resolved Date Code CodeSystem Concern Status 1 COVID-[address] active 2 [address]EM[address] active 3 ELEVATED WHITE BLOOD CELL COUNT, UNSPECIFIED [address] active 4 UNSPECIFIED DEMENTIA, UNSPECIFIED SEVERITY, WITHOUT BEHAVIORAL DISTURBANCE, PSYCHOTIC DISTURBANCE, MOOD DISTURBANCE, AND ANXIETY [address] active 5 BRADYCARDIA, UNSPECIFIED [address] active 6 ENCOUNTER FOR OTHER ORTHOPEDIC AFTERCARE [address] active 7 INFECTION FOLLOWING A PROCEDURE, DEEP INCISIONAL SURGICAL SITE, SEQUELA [address] active 8 METHICILLIN RESISTANT STAPHYLOCOCCUS AUREUS INFECTION THE CAUSE OF DISEASES CLASSIFIED ELSEWHERE [address] active 9 NICOTINE DEPENDENCE, UNSPECIFIED, UNCOMPLICATED [address] active 10 OTHER ABNORMALITIES OF GAIT AND MOBILITY [address] active 11 OTHER DISORDERS OF PLASMA-PROTEIN METABOLISM, NOT ELSEWHERE CLASSIFIED [address] active 12 PAIN IN UNSPECIFIED HIP [address] active 13 PRESENCE OF CARDIAC PACEMAKER [address] active 14 UNSPECIFIED DISLOCATION OF RIGHT HIP, SUBSEQUENT ENCOUNTER [address] active 15 UNSPECIFIED OPEN WOUND, RIGHT HIP, SUBSEQUENT ENCOUNTER [address] active 16 WEAKNESS [address] active Reason for Referral No Reasons for Referral Entered Social History Social History Observation Description Start Date End Date Code Code System Current Smoking Status Tobacco smoking consumption unknown 692545166 SNOMED CT Sex Assigned At Female 1965 24056-0 [facility] Gender Identity Vital Signs Code Code System Vitals Name Values and Units Timing Information 9279-1 [facility] Respiratory Rate Value=16.0 Units=/m in 02/08/2022 8462-4 [facility] Blood Pressure-Diastolic Value=66 Un its=mmHg 02/08/2022 8480-6 [facility] Blood Pressure-Systolic Qgovd=752 Un its=mmHg 02/08/2022 8310-5 [facility] Body Temperature Value=97.3 Units= F 02/08/2022 8867-4 [facility] Heart rate Value=94.0 Units=/min 32894-9 [facility] O2 % BldC Oximetry Value=96.0 Units= % 02/08/2022 40690-7 [facility] Pain Level Value=0.0 02/08/2022 91993-9 [facility] Weight Qvabw=664.1 Units=Lbs 8302-2 [facility] Height Lmier=149.0 Units=Inches 11/28/2021
== END 2025-07-02 14:15 | disposition home or self-care (01) ==
LOC: HO.HID 14:14
PROVIDERS: PCP Internal Medicine; Visit Provider Internal Medicine
DX: M86.9 Osteomyelitis, unspecified (principal)
CPT/HCPCS: 99213

== ENCOUNTER → 2025-07-02 14:14 | Outpatient (BNVA) | payer OTHER, SELFPAY | PROVIDERS: PCP Internal Medicine; Visit Provider Internal Medicine | DX: M86.151 Other acute osteomyelitis, right femur (principal) | CPT/HCPCS: 99212 ==

== ENCOUNTER 2025-09-04 11:22 | Outpatient (AMB) | payer OTHER, SELFPAY ==
--- NOTE | 2025-09-04 12:09 | MHC.PC.OV ---
Vital Signs 09/04/25 12:11 Height 4 ft 9 in BMI Reason not done Patient refused/unable BP 94/58 L Blood Pressure Location Rt brachial Position Sitting Respiration 15 Pulse 95 Pulse Source Pulse Oximeter Temp 97.8 F Temp Source Oral Pulse Oximetry (%) 97 Oxygen Delivery Method Room Air Intake Visit Reasons: Complex followup Intake Note: PPt is here today for a follow up visit. Allergies [place] nut Allergy (Verified 09/04/25 12:11) Unknown lactose Allergy (Verified 09/04/25 12:11) Diarrhea Medication List - Last Reconciled 09/04/25 by Marry Campuzano MD acetaminophen 650 mg PO Q6H PRN adhesive tape As directed adhesive tape ([facility] [facility]) As directed adhesive tape ([facility]) As directed [air mattress As directed] Air mattress overlay As directed baclofen 10 mg PO DAILY [body wipes As directed] cetirizine 10 mg PO DAILY cholecalciferol (vitamin D3) 25 mcg PO DAILY diaper,brief,adult,disposable large size, 8 changes in 24 hrs disposable gloves (Vinyl Gloves) As directed doxycycline hyclate 100 mg PO BID 30 days ferrous sulfate 325 mg PO DAILY folic acid 1 mg PO DAILY food supplemt, lactose-reduced (Nutritional Drink oral liquid) 1 ea PO BID gabapentin 600 mg (2 x 300 mg) PO Q8H gauze bandage As directed gauze bandage As directed gauze bandage as directed gauze bandage (Band-Aid Gauze Pads) As directed [rossy lift As directed for permanent use] [Rossy lift crossover harness As directed] hydrocolloid dressing (DuoDERM CGF Dressing) As directed levothyroxine 100 mcg PO DAILY nebulizers 1 bid [powered recliner chair As directed] [powered recliner-small As directed] [roho seat cushion As directed] [washable bed pads-large As directed] zinc oxide-white petrolatum 10-78 % ([place] Moist Barrier-Zinc) 1 appl topical .qd Tobacco use date assessed: 09/04/25 Dental Screening Dental Screen Date: 09/04/25 Did you have a dental visit in the last 12 months?: No Did you have a dental problem in the last 6 months where you did not have access to dental care?: No Was dental information given to patient?: Patient declined HPI Complex followup HPI Details Patient presents with her for follow-up. She is nonverbal due to advanced dementia. Patient has been states patient is doing well has a good appetite but remains wheelchair bound. Patient is incontinent of the urine and stool and her provides her with personal care. [facility], [facility] Medical History Hypothyroidism Dementia Osteomyelitis of right hip Protein malnutrition Decubitus ulcer, unstageable with infection Colovaginal fistula Shortness of breath Rash Elevated LFTs Pressure injury of ankle, unstageable Pressure injury of sacral region, stage 3 Unspecified open wound, right hip, initial encounter Dementia Leukocytosis (leucocytosis) Fever Preoperative cardiovascular examination Pre-op evaluation Dislocation, hip closed History of pacemaker Hip dislocation, right Closed dislocation of right hip Visit for wound check Pacemaker Symptomatic bradycardia Syncope Sinus pause Abnormal EKG Displaced fracture of right femoral neck Closed hip fracture Urinary incontinence Balance disorder Left leg weakness Dementia Memory loss PTSD (post-traumatic stress disorder) Tobacco dependence Lactose intolerance Abnormal urine odor Surgical History S/P [place] procedure History of hemiarthroplasty of right hip Hx of total hip arthroplasty Status post hip hemiarthroplasty No pertinent past surgical history Family History Mother Unknown family medical history Father Unknown family medical history Social History Household Members: Spouse Housing: Apartment Housing [facility] Do you presently have visiting nurse or other home services: Yes Alcohol intake: never Comment: pt off unit Patient Tobacco Use Status: Former Tobacco user Tobacco use type: Cigarette Cigarettes Per Day: 5.0 Years Smoked: since teen years per pt e-Cigarette/Vaping Use: Never Used Second Hand Smoke Exposure: No Substance Use Type: Marijuana Advance Directives Date on File: 06/06/23 service: No Current occupational status: disabled Current occupation: rt handed Cognitive needs: Yes Hearing needs: No Vision needs: Yes Questionnaire PHQ-9 Over the last 2 weeks, how often have you been bothered by any of the following problems? 1. Little interest or pleasure in doing things: not at all 2. Feeling down, depressed, or hopeless: not at all 3. Trouble falling or staying asleep, or sleeping too much: not at all 4. Feeling tired or having little energy: not at all 5. Poor appetite or overeating: not at all 6. Feeling bad about yourself - or that you are a failure or have let yourself or your family down: not at all 7. Trouble concentrating on things, such as reading the newspaper or watching television: not at all 8. Moving or speaking so slowly that other people could have noticed. Or the opposite - being so fidgety or restless that you have been moving around a lot more than usual: not at all 9. Thoughts that you would be better off or of hurting yourself in some way: not at all Total score: 0 Depression Screening Interpretation: Negative Depression Screening Done: Yes Source: Developed by Drs. Richie Parker, Reanna Thornton, Aleksander Olivera and colleagues, with an educational alcides from [employer]. Thrive Questionnaire Date Thrive assessed: 05/30/24 AUDIT C Alcohol Use Questionnaire (AUDIT-C) 1. How often do you have a drink containing alcohol?: Never 3. How often do you have six or more drinks on one occasion?: Never Total Score: 0 BENSON-7 AMB Questionnaire BENSON-7 Date BENSON - 7 assessed: 05/30/24 Feeling nervous, anxious, or on edge: 0 = Not at all Not being able to stop or control worryin = Not at all Worrying too much about different things: 0 = Not at all Trouble relaxin = Not at all Being so restless that it is hard to sit still: 0 = Not at all Becoming easily annoyed or irritable: 0 = Not at all Feeling afraid as if something awful might happen: 0 = Not at all Total BENSON-7 score (0-4 normal; 5-9 mild; 10-14 moderate; 15-21 severe): 0 Source: Developed by Drs. Richie Parker, Reanna Thornton, Aleksander Olivera and colleagues, with an educational alcides from [employer]. BENSON-7 Assessment Billing BENSON-7 Assessment Tool: BENSON-7 Assessment 72772 Review of Systems Const All systems reviewed & are unremarkable except as noted in HPI and below Eyes Reports no additional complaints ENT Reports no additional complaints Card Reports no additional complaints Resp Reports no additional complaints GI Reports no additional complaints Reports no additional complaints Physical exam (Primary Care) Vital Signs: Last Vital Signs Temp 97.8 F 09/04/25 12:11 Pulse 95 09/04/25 12:11 Resp 15 09/04/25 12:11 BP 94/58 L 09/04/25 12:11 Pulse Ox 97 09/04/25 12:11 Oxygen Delivery Method Room Air 09/04/25 12:11 Tobacco/Smoking Status: Tobacco use Status Tobacco use date assessed 09/04/25 09/04/25 12:24 Patient Tobacco Use Status Former Tobacco user 09/04/25 12:09 Tobacco use type Cigarette 09/04/25 12:09 e-Cigarette/Vaping Use Never Used 09/04/25 12:09 PHQ-9: PHQ-9 Score PHQ-9: Total score 0 09/04/25 12:24 Depression Screening Interpretation: Negative Thrive Assessment: Date of Thrive Assessment Date Thrive assessed 05/30/24 09/04/25 12:09 Const General: no acute distress HENMT Head: Yes normal to inspection Ears: hearing grossly normal bilaterally Face and sinus: Yes normal facial exam Throat: Yes posterior oropharynx normal Eyes General: appearance normal, both eyes and all related structures Neck Neck: Yes no lymphadenopathy and Yes supple Resp Effort & Inspection: normal respiratory effort Auscultation: clear to auscultation bilaterally Cardio Rhythm: regular rhythm Heart sounds: S1 normal heart sound present and S2 normal heart sound present GI Inspection: Yes normal to inspection Palpation (GI): Soft to palpation Percussion: Yes normal to percussion Coding Level of Care Code Est Pt Level 4 (70882) Diagnoses Dementia F03.90 Iron deficiency E61.1 Hypothyroidism E03.9 Vitamin D deficiency E55.9 Hyperglycemia R73.9 Additional Codes BENSON-7 Assessment Billing - BENSON-7 Assessment Tool: BENSON-7 Assessment 11689 ([id number]) Assessment & Plan Assessment & Plan (1) Dementia: Comment: ADVANCED, NON VERBAL Code(s): F03.90 - Unspecified dementia, unspecified severity, without behavioral disturbance, psychotic disturbance, mood disturbance, and anxiety Category: Medical Plan: Advanced dementia. Patient requires 24 hour care at home (2) Iron deficiency: Code(s): E61.1 - Iron deficiency Category: Medical Plan: Continue iron supplement check iron level (3) Hypothyroidism: Code(s): E03.9 - Hypothyroidism, unspecified Category: Medical Plan: Continue levothyroxine check TSH level (4) Vitamin D deficiency: Code(s): E55.9 - Vitamin D deficiency, unspecified Category: Medical Plan: Continue vitamin-D supplement (5) Hyperglycemia: Code(s): R73.9 - Hyperglycemia, unspecified Category: Medical Plan: Check A1c. Patient will return for wellness physical in 1 year Orders: Orders Complete Blood Count Auto Diff Today E03.9 - Hypothyroidism, unspecified, E55.9 - Vitamin D deficiency, unspecified, E61.1 - Iron deficiency, F03.90 - Unspecified dementia, unspecified severity, without behavioral disturbance, psychotic disturbance, mood disturbance, and anxiety, R73.9 - Hyperglycemia, unspecified IRON PROFILE Today E03.9 - Hypothyroidism, unspecified, E55.9 - Vitamin D deficiency, unspecified, E61.1 - Iron deficiency, F03.90 - Unspecified dementia, unspecified severity, without behavioral disturbance, psychotic disturbance, mood disturbance, and anxiety, R73.9 - Hyperglycemia, unspecified Vitamin D 25-OH Total Today E03.9 - Hypothyroidism, unspecified, E55.9 - Vitamin D deficiency, unspecified, E61.1 - Iron deficiency, F03.90 - Unspecified dementia, unspecified severity, without behavioral disturbance, psychotic disturbance, mood disturbance, and anxiety, R73.9 - Hyperglycemia, unspecified Hemoglobin A1c Today R73.9 - Hyperglycemia, unspecified Comprehensive Met. Panel Today E03.9 - Hypothyroidism, unspecified, E55.9 - Vitamin D deficiency, unspecified, E61.1 - Iron deficiency, F03.90 - Unspecified dementia, unspecified severity, without behavioral disturbance, psychotic disturbance, mood disturbance, and anxiety, R73.9 - Hyperglycemia, unspecified Vitamin B12 and Folate Today E03.9 - Hypothyroidism, unspecified, E55.9 - Vitamin D deficiency, unspecified, E61.1 - Iron deficiency, F03.90 - Unspecified dementia, unspecified severity, without behavioral disturbance, psychotic disturbance, mood disturbance, and anxiety, R73.9 - Hyperglycemia, unspecified TSH reflex Free T4 Today E03.9 - Hypothyroidism, unspecified, E55.9 - Vitamin D deficiency, unspecified, E61.1 - Iron deficiency, F03.90 - Unspecified dementia, unspecified severity, without behavioral disturbance, psychotic disturbance, mood disturbance, and anxiety, R73.9 - Hyperglycemia, unspecified
[2025-09-04 12:11] VITALS: BP 94/58; PULSE 95; RESP 15; TEMP 36.6; O2SAT 97
== END 2025-09-04 12:46 | disposition home or self-care (01) ==
LOC: HO.HMCC 11:23
PROVIDERS: PCP Internal Medicine; Visit Provider Internal Medicine
DX: F03.90 Unspecified dementia, unspecified severity, without behavioral disturbance, psychotic disturbance, mood disturbance, and anxiety (principal); E61.1 Iron deficiency; E03.9 Hypothyroidism, unspecified; E55.9 Vitamin D deficiency, unspecified; R73.9 Hyperglycemia, unspecified

== ENCOUNTER 2025-09-04 11:22 | Outpatient (REF) | payer OTHER, SELFPAY ==
[2025-09-04 16:09] LABS: MANUAL DIFF FLAG NO
[2025-09-04 16:17] LABS: Hematocrit 43.3 % (37.0-47.0); Hemoglobin 13.5 g/dl (12.0-16.0); Imm Gran Abs Auto 0.09 X10*3/uL (0.00-0.03); Imm Gran Pct Auto 0.6 % (0.0-0.4); Lymphocytes Absolute Auto 2.8 X10*3/uL (1.2-4.9); Mean Corpuscular HGB Conc 31.2 g/dl (31.0-35.0); Mean Corpuscular Hemoglobin 28.8 pg (27.0-33.0); Mean Corpuscular Volume 92.3 fL (80.0-98.0); NRBC Abs Auto 0.000 X10*3/uL (0.0-0.012); NRBC Pct Auto 0.0 /100WBC (0.0-0.2); Platelet Count 594 X10*3/uL (160-400); Red Blood Count 4.69 X10*6/uL (4.20-5.50); White Blood Count 15.8 X10*3/uL (4.8-10.8)
[2025-09-04 16:21] LABS: Total Hemoglobin (HGBA1C) 3457.1567 umol/L
--- OUTSIDE RECORDS SUMMARY | 2025-09-04 16:26 | XMS_ITS | Data Portability ---
Author Organization [place] [facility] Address [address] [place] [id number] Care Team Providers Care Fabrication And Layout Craftsman Name Role Phone MONSTER GALARZAANNA Primary Care Provider [phone] Assessment Encounter Date Assessment Date Assessment LastModified by Organization Details LastModified Time 03/05/2022 03/05/2022 Time On Scene with Patient: 00:34:32 DDX: conjunctivitis, corneal abrasion, corneal ulcer Painless but itchy eye with discharge. Topical anesthetic meds unavailable numb and further evaluate the eye. Visual acuity with corrective glasses 20/20. There is obvious discharge and concerns for infection. Will treat for presumptive conjunctivitis with erythromycin ointment. WIll also have patient use this in the other eye to prevent spread. This was discussed with patient and of patient. Pt was sitting in her recliner at completion of visit, resp easy, in good spirits. [email or web address] Not available 03/05/2022 19:40:50 10/29/2022 10/29/2022 Time On Scene with Patient: 01:30:38 57 YO F patient established with however new to provider. and CLOTHING MAN present for visit. Patient is experiencing a rash to BUE and BLE x 1 month which is itchy in nature with small clear filled blisters that pop on their own. CLOTHING MAN is applying Vaseline lotion, Hydorcortisone, and using Dove soap. She denies any new detergents. PMHx of CVA with left contractures, depression, hypothyroidism. VSS Exam: Skin: BUE/BLE with erythematous maculopapular rash with visible excoriation. RLE with pat size clear filled blister. Skin temp wnl. DDx: atopic dermatitis, cellulitis, tinea corporis. Test:None Plan: -Prednisone prescribed to assist with inflammation as well as topical Triamcinolone. -Recommended daily anti histamine. -Topical emollient such as Eucerin, Lubriderm, Golds harris, and Cerave recommended. -Will schedule one week follow up for repeat assessment. -May benefit from derm consultation. The patient is advised to make an appt with PCP in 3-5 days to discuss ongoing symptoms/ further management. The patient is also advised to go to the ED immediately for any worsening symptoms. The patient understood and agreed with this plan. The patient was given discharge instructions and all questions were answered prior to team departure. [email or web address] Not available 10/29/2022 12:07:55 11/05/2022 11/05/2022 Brief Overview: Patient is a 57 year old female with a PMH including hypothyroidism, depression, chronic wounds (follows wound care biweekly for debridements) and hip replacement s/p girdlestone procedure who is known to and new to provider who was scheduled today for follow up for wounds however upon arrival abnormal vitals with tachycardia/febril e and her saying she feels like shit . No specific complaints aside from this. She denies SOB/CP. She is eating and drinking without issue, follows a pureed diet. Ate this AM without issue. The family says she appears to be at her baseline as she takes Gabapentin 500mg which can cause sedation. Denies cough or shortness of breath. Per her , her urine has had a strong odor to it with frequency. In regards to the rash to LE, improvement to the blisters however maculopapular rash remains, initially resolved with Prednisone but once that completed it returned. Denies any itch or further complaints to rash. Vital Signs: INITIAL: 100.9, HR 114, 94/76, RR 18, 92%RA REPEAT POST IVF/tylenol: 99.4, HR 96, 104/78, RR 18, 92% RA Exam: Patient is seen laying in her hospital bed, and CLOTHING MAN present. She is lethargic, arousing to verbal. Caregiver/ states this is baseline for patient due to her sedating medications.. Arousing to loud verbal and following some commands. She is baseline immobile, dion lift used. She is incontinent of urine, brief in place with malodorous urine. Vitals improved post IVF/NSAID. Low grade fever. Lung sounds dim however she does not follow command to take a deep inspiration so difficult to assess. No cough present. Dry mucous membranes. No lymphadenopathy present. + BS x4, abd soft/non tender. TMs without erythema or edema. Tonsils without erythema or exudate. BLE with erythematous maculopapular rash with dried excoriations present. Blisters have healed. Bilateral UE without rash/wounds. Chem8: Na 136 K 3.3 Cl 99 Ca 1.16 CO2 26 Glucose 91 BUN 13 Creat 0.4 Hct 39 Hbg 13.3 Anion gap 16 Lactate 1.79 DDx considered, with rationale: Sepsis; initial vitals meeting sepsis criteria however did not want to transport her to the ED despite our recommendations. He stated he has done everything in his power to keep her home, has 24 hour care givers as well. Labs reassuring, no electrolyte disturbances. UTI; dip with leukocytes, nitrates and RBCs. Reports of malodorous urine. Sending culture for further evaluation. PNA; considered, although no cough/SOB LS dim, febrile, need XRAY for evaluation as I cannot rule out. Upon initial arrival, expressed concern given her presentation with vitals meeting sepsis criteria. visibly upset and wanted to everything possible to keep her home. Long discussion and education provided on my recommendations to transport to ED however per who is her HCP he would like to hold on hospitalization at this time and have us attempt to do what we can. UTI; -- Dip with +RBCs, + leukocytes, + nitrates -- Start Bactrim (renal function assessed via chem 8) to be taken as prescribed. -- Push fluids -- Tylenol every 6-8 hours for fevers over the next 3-4 days Atopic dermatitis; -- Rash improving however maculopapular rash returned to bilat LE, blisters are all dried/healed -- Restart course of Prednisone 20mg daily x 6 days Potential PNA; unable to properly assess lung sound as she does not take deep breaths on command, sound dim. Given fevers need a XRAY to rule out. We will be in contact once XRAY has resulted/potential need for additional AB. They will follow up PCP in regards to rash specifically to ongoing care. Despite patient staying home and not going to ER given our recommendations, agrees if she does not improve within 24 hours he needs to call 911. He is in agreement with this plan. I told him specifically; decreased mental status, SOB, CP, ongoing fevers. [email or web address] operator is also present and is in agreement/understa nding of plan. Patient was able to drink an ensure during out visit so they will continue to push fluids as well. Not available 11/05/2022 12:44:34 Plan of Treatment Reminders Order Date Submit Date Provider Last Modified By Organization Details Last Modified Time Details Appointments None recorded. Lab BMP + ionized calcium, serum or plasma [facility] [address], [place], [address], 3 05:01:50 lactate, venous plasma 2021 0[facility], [address], [place], [address], 3 05:01:50 rapid SARS CoV 2 Ag, QL IA, respiratory specimen 2021 [facility], [address], [place], [address], 2 12:21:38 culture, urine 2021 CL[facility] (Centralized Electronic Ordering - All Locations), Patient Can Go To The Location Of Their Choice, [id number] 07:55:20 urinalysis, dipstick 2021 [facility], [address], [place], [address], 2 11:52:02 Referral None recorded. Procedures None recorded. Surgeries None recorded. Imaging XR, chest, 2 view [email or web address] [facility] ([employer]), [address], [place], [address], 2 15:59:46 Medication Orders sodium chloride 0.9 % intravenous solution 2021 [facility] #85504, [address] [place], [id number], 2 11:51:54 Bactrim DS 800 mg-160 mg tablet 2021 [facility] #95440, [address] [place], [id number], 2 11:52:17 prednisone 20 mg tablet 2021 [facility] #48043, [address] [place], [id number], 2 11:52:20 prednisone 20 mg tablet 2021 [facility] #[id number], [address] [place], [id number], 2 10:48:52 triamcinolo ne acetonide 0.1 % topical ointment 2021 [facility] #19016, [address] [place], [id number], 2 10:48:56 Eucerin Eczema Relief 1 % topical cream 2021 [facility] #52298, [address] [place], [id number], 2 10:48:49 erythromyci n 5 mg/gram (0.5 %) eye ointment 2021 [email or web address] [id number] [facility] #42343, [address] [place], [id number], 2 10:43:43 Patient TargetsNo targets recorded. Patient Instructions Encounter Date Encounter Id Patient Instructions Last Modified By Organization Details Last Modified Time 10/29/2022 [id number] Thank you for yo ur visit with [facility] today. We cannot always find the exact cause of your symptoms during your initial visit. Please follow up with your primary care provider or specialist within 2-3 days to be rechecked or seek medical attention if your symptoms do not go away or get worse. If you develop any new or worsening symptoms and need after hours care, please go to nearest ER and/or call 911. If you have additional concerns or develop a change in your condition between 8am-10pm, please call [facility] at [phone] to help navigate your care. Please seek care or call your primary provider if the rash: 1. Worsens 2. Lasts longer than one week 3. Shows signs of local infection (redness, oozing, or swelling) 4. Occurs together with fever, chills, swollen glands, or other symptoms of infection 5. Looks dark purple or spotted 6. Occurs together with symptoms that suggest autoimmune disorder (recurring fever, malaise, fatigue, unexplained weight loss, or joint swelling) If you have additional concerns or develop a change in your condition between 8am-10pm, please call [facility] at [phone] to help navigate your care. [email or web address] Not available 10/29/2022 12:08:03 Reason for Referral None Reported. Results Created Date Observation Date Name Description Value Unit Range Abnormal Flag Note LastModifiedBy Organization Detail LastModifiedTime 11/05/2011/06/2022 URINE CULTU RE specimen description URINE Not Available [facility] ([facility] Ordering - All Locations) Patient Can Go To The Location Of Their Choice, [id number] 11/08/2022 07:55:19 11/05/20 22 11/06/2022 URINE CULTU RE special requests NONE Not Available [facility] (Centralized Electronic Ordering - All Locations) Patient Can Go To The Location Of Their Choice, [id number] 11/08/2022 07:55:19 11/05/2011/08/2022 URINE CULTU RE culture abnormal >100, 000 COL/M L ESCHE TOBIAS A COLI This isola te was ident ified using Maldi -TOF syste m These AST resul ts were perfo rmed on the Micro scan ID and AST syste m >100, 000 COL/M L This isola te was ident ified using Maldi -TOF syste m These AST resul ts were perfo rmed on the Micro scan ID and AST syste m Not Available [facility] (Centralized Electronic Ordering - All Locations) Patient Can Go To The Location Of Their Choice, [id number] 11/08/2022 07:55:19 11/05/2011/08/2022 URINE CULTU RE report status FINAL 2021 Not Available [facility] (Centralized Electronic Ordering - All Locations) Patient Can Go To The Location Of Their Choice, 11/08/2022 07:55:19 11/05/2011/08/2022 URINE CULTU RE organism ORGAN ISM >100, 000 COL/M L ESCHE TOBIAS A COLI This isola te was ident ified using Maldi -TOF syste m These AST resul ts were perfo rmed on the Micro scan ID and AST syste m Not Available [facility] (Centralized Electronic Ordering - All Locations) Patient Can Go To The Location Of Their Choice, [facility] 11/08/2022 07:55:19 11/05/2011/08/2022 URINE CULTU RE method METHOD MIN. INHIB. CONC. (MCG/M L) Not Available [facility] (Centralized Electronic Ordering - All Locations) Patient Can Go To The Location Of Their Choice, [facility] 11/08/2022 07:55:19 11/05/2011/08/2022 URINE CULTU RE ampicillin AMPICI LLIN SUSCEP TIBLE susceptib le Not Available [facility] (Centralized Electronic Ordering - All Locations) Patient Can Go To The Location Of Their Choice, [id number] 11/08/2022 07:55:19 11/05/2011/08/2022 URINE CULTU RE ampicillin/s ulbactam AMPICI LLIN/S ULBACT AM SUSCEP TIBLE susceptib le Not Available [facility] (Centralized Electronic Ordering - All Locations) Patient Can Go To The Location Of Their Choice, [id number] 11/08/2022 07:55:19 11/05/2011/08/2022 URINE CULTU RE amoxicillin/ clavulanic acid AMOXIC ILLIN/ CLAVUL AN SUSCEP TIBLE susceptib le Not Available [facility] (Centralized Electronic Ordering - All Locations) Patient Can Go To The Location Of Their Choice, 11/08/2022 07:55:19 11/05/2011/08/2022 URINE CULTU RE cefazolin CEFAZO DEB SUSCEP TIBLE susceptib le Not Available [facility] (Centralized Electronic Ordering - All Locations) Patient Can Go To The Location Of Their Choice, 11/08/2022 07:55:19 11/05/2011/08/2022 URINE CULTU RE cefepime CEFEPI ME SUSCEP TIBLE susceptib le Not Available [facility] (Centralized Electronic Ordering - All Locations) Patient Can Go To The Location Of Their Choice, 11/08/2022 07:55:19 11/05/2011/08/2022 URINE CULTU RE ceftriaxone CEFTRI AXONE SUSCEP TIBLE susceptib le Not Available [facility] (Centralized Electronic Ordering - All Locations) Patient Can Go To The Location Of Their Choice, 11/08/2022 07:55:19 11/05/2011/08/2022 URINE CULTU RE ciprofloxaci n CIPROF LOXACI N RESIST ANT resistant Not Available [facility] (Centralized Electronic Ordering - All Locations) Patient Can Go To The Location Of Their Choice, 11/08/2022 07:55:19 11/05/2011/08/2022 URINE CULTU RE ertapenem ERTAPE NEM SUSCEP TIBLE susceptib le Not Available [facility] (Centralized Electronic Ordering - All Locations) Patient Can Go To The Location Of Their Choice, 11/08/2022 07:55:19 11/05/2011/08/2022 URINE CULTU RE gentamicin GENTAM ICIN SUSCEP TIBLE susceptib le Not Available [facility] (Centralized Electronic Ordering - All Locations) Patient Can Go To The Location Of Their Choice, 11/08/2022 07:55:19 11/05/2011/08/2022 URINE CULTU RE levofloxacin LEVOFL OXACIN RESIST ANT resistant Not Available [facility] (Centralized Electronic Ordering - All Locations) Patient Can Go To The Location Of Their Choice, 11/08/2022 07:55:19 11/05/2011/08/2022 URINE CULTU RE meropenem MEROPE NEM SUSCEP TIBLE susceptib le Not Available [facility] (Centralized Electronic Ordering - All Locations) Patient Can Go To The Location Of Their Choice, 11/08/2022 07:55:19 11/05/2011/08/2022 URINE CULTU RE nitrofuranto in NITROF URANTO IN SUSCEP TIBLE susceptib le Not Available [facility] (Centralized Electronic Ordering - All Locations) Patient Can Go To The Location Of Their Choice, 11/08/2022 07:55:19 11/05/2011/08/2022 URINE CULTU RE piperacillin /tazobactam PIPERA CILLIN /TAZOB AC SUSCEP TIBLE susceptib le Not Available [facility] (Centralized Electronic Ordering - All Locations) Patient Can Go To The Location Of Their Choice, 11/08/2022 07:55:19 11/05/2011/08/2022 URINE CULTU RE trimeth/sulf amethox TRIMET H/SULF AMETHO X SUSCEP TIBLE susceptib le Not Available [facility] (Centralized Electronic Ordering - All Locations) Patient Can Go To The Location Of Their Choice, 11/08/2022 07:55:19 11/05/2011/08/2022 URINE CULTU RE tetracycline TETRAC YCLINE SUSCEP TIBLE susceptib le Not Available [facility] (Centralized Electronic Ordering - All Locations) Patient Can Go To The Location Of Their Choice, 11/08/2022 07:55:19 11/05/2011/08/2022 URINE CULTU RE organism ORGAN ISM >100, 000 COL/M L This isola te was ident ified using Maldi -TOF syste m These AST resul ts were perfo rmed on the Micro scan ID and AST syste m Not Available [facility] (Centralized Electronic Ordering - All Locations) Patient Can Go To The Location Of Their Choice, 11/08/2022 07:55:19 11/05/2011/08/2022 URINE CULTU RE method METHOD MIN. INHIB. CONC. (MCG/M L) Not Available [facility] (Centralized Electronic Ordering - All Locations) Patient Can Go To The Location Of Their Choice, 11/08/2022 07:55:19 12/24/20 22 11/08/2022 URINE CULTU RE ampicillin AMPICI LLIN SUSCEP TIBLE susceptib le Not Available [facility] (Centralized Electronic Ordering - All Locations) Patient Can Go To The Location Of Their Choice, 11/08/2022 07:55:19 11/05/2011/08/2022 URINE CULTU RE ampicillin/s ulbactam AMPICI LLIN/S ULBACT AM SUSCEP TIBLE susceptib le Not Available [facility] (Centralized Electronic Ordering - All Locations) Patient Can Go To The Location Of Their Choice, 11/08/2022 07:55:19 11/05/20 22 11/08/2022 URINE CULTU RE amoxicillin/ clavulanic acid AMOXIC ILLIN/ CLAVUL AN SUSCEP TIBLE susceptib le Not Available [facility] (Centralized Electronic Ordering - All Locations) Patient Can Go To The Location Of Their Choice, 11/08/2022 07:55:19 11/05/2011/08/2022 URINE CULTU RE cefazolin CEFAZO DEB SUSCEP TIBLE susceptib le Not Available [facility] (Centralized Electronic Ordering - All Locations) Patient Can Go To The Location Of Their Choice, 11/08/2022 07:55:19 11/05/2011/08/2022 URINE CULTU RE cefepime CEFEPI ME SUSCEP TIBLE susceptib le Not Available [facility] (Centralized Electronic Ordering - All Locations) Patient Can Go To The Location Of Their Choice, 11/08/2022 07:55:19 11/05/2011/08/2022 URINE CULTU RE ceftriaxone CEFTRI AXONE SUSCEP TIBLE susceptib le Not Available [facility] (Centralized Electronic Ordering - All Locations) Patient Can Go To The Location Of Their Choice, 11/08/2022 07:55:19 11/05/20 22 11/08/2022 URINE CULTU RE ciprofloxaci n CIPROF LOXACI N SUSCEP TIBLE susceptib le Not Available [facility] (Centralized Electronic Ordering - All Locations) Patient Can Go To The Location Of Their Choice, 11/08/2022 07:55:19 11/05/20 22 11/08/2022 URINE CULTU RE ertapenem ERTAPE NEM SUSCEP TIBLE susceptib le Not Available [facility] (Centralized Electronic Ordering - All Locations) Patient Can Go To The Location Of Their Choice, 11/08/2022 07:55:19 11/05/2011/08/2022 URINE CULTU RE gentamicin GENTAM ICIN SUSCEP TIBLE susceptib le Not Available [facility] (Centralized Electronic Ordering - All Locations) Patient Can Go To The Location Of Their Choice, 11/08/2022 07:55:19 11/05/2011/08/2022 URINE CULTU RE levofloxacin LEVOFL OXACIN SUSCEP TIBLE susceptib le Not Available [facility] (Centralized Electronic Ordering - All Locations) Patient Can Go To The Location Of Their Choice, 11/08/2022 07:55:19 11/05/2011/08/2022 URINE CULTU RE meropenem MEROPE NEM SUSCEP TIBLE susceptib le Not Available [facility] (Centralized Electronic Ordering - All Locations) Patient Can Go To The Location Of Their Choice, 11/08/2022 07:55:19 11/05/2011/08/2022 URINE CULTU RE nitrofuranto in NITROF URANTO IN RESIST ANT resistant Not Available [facility] (Centralized Electronic Ordering - All Locations) Patient Can Go To The Location Of Their Choice, 11/08/2022 07:55:19 11/05/2011/08/2022 URINE CULTU RE piperacillin /tazobactam PIPERA CILLIN /TAZOB AC SUSCEP TIBLE susceptib le Not Available [facility] (Centralized Electronic Ordering - All Locations) Patient Can Go To The Location Of Their Choice, 11/08/2022 07:55:19 11/05/2011/08/2022 URINE CULTU RE trimeth/sulf amethox TRIMET H/SULF AMETHO X SUSCEP TIBLE susceptib le Not Available [facility] (Centralized Electronic Ordering - All Locations) Patient Can Go To The Location Of Their Choice, 11/08/2022 07:55:19 11/05/2011/08/2022 URINE CULTU RE tetracycline TETRAC YCLINE RESIST ANT resistant Not Available [facility] (Centralized Electronic Ordering - All Locations) Patient Can Go To The Location Of Their Choice, 11/08/2022 07:55:19 11/05/2011/05/2022 rapid SARS CoV 2 Ag, QL IA, respi rator y speci men Covid-19 (ref: neg) negati ve Not Available [facility] [address] [place], [address], 11/05/2022 12:21:12 11/05/20 22 11/05/2022 rapid SARS CoV 2 Ag, QL IA, respi rator y speci men Control Visual ized/V alid Not Available [facility] [address] [place], [address], 11/05/2022 12:21:12 11/05/20 22 11/05/2022 rapid SARS CoV 2 Ag, QL IA, respi rator y speci men Location [facility], [address] [place] [address], [id number] Not Available [facility] [address] [place], [address], 11/05/2022 12:21:12 11/05/20 22 11/05/2022 urina lysis , dipst ick Appearance cloudy Not Available [facility] [address] [place], [address], 11/05/2022 11:45:24 11/05/20 22 11/05/2022 urina lysis , dipst ick Color yellow Not Available [facility] [address] [place], [address], 11/05/2022 11:45:24 11/05/20 22 11/05/2022 urina lysis , dipst ick Glucose (ref: neg Neg Not Available [facility] [address] [place], [address], 11/05/2022 11:45:24 11/05/20 22 11/05/2022 urina lysis , dipst ick Bilirubin (ref: neg) Neg Not Available [facility] [address] [place], [address], 11/05/2022 11:45:24 11/05/20 22 11/05/2022 urina lysis , dipst ick Ketones (ref: neg) Neg Not Available [facility] [address] [place], [address], 11/05/2022 11:45:24 11/05/20 22 11/05/2022 urina lysis , dipst ick Specific [place] (ref: 1.003 - 1.035) 1.030 Not Available [facility] [address] [place], [address], 11/05/2022 11:45:24 11/05/20 22 11/05/2022 urina lysis , dipst ick Blood (ref: neg) +++ Not Available [facility] [address], [place], [address], 11/05/2022 11:45:24 11/05/20 22 11/05/2022 urina lysis , dipst ick pH (ref: 5.0-7.0) 5.0 Not Available [facility] [address], [place], [address], 11/05/2022 11:45:24 11/05/20 22 11/05/2022 urina lysis , dipst ick Protein (ref: neg) + Not Available [facility] [address], [place], [address], 11/05/2022 11:45:24 11/05/20 22 11/05/2022 urina lysis , dipst ick Urobilinogen (ref: 0.2-1.0) 0.2 Not Available [facility] [address], [place], [address], 11/05/2022 11:45:24 11/05/20 22 11/05/2022 urina lysis , dipst ick Nitrites (ref: neg) positi ve Not Available [facility] [address] [place], [address], 11/05/2022 11:45:24 11/05/20 22 11/05/2022 urina lysis , dipst ick Leukocytes (ref: neg) ++ Not Available [facility] [address] [place], [address], 11/05/2022 11:45:24 11/05/20 22 11/05/2022 urina lysis , dipst ick [facility], [address] [place] [address], [id number] Not Available [facility] [address] [place], [address], 11/05/2022 11:45:24 11/05/20 22 11/05/2022 BMP + IONIZ ED CALCI UM, SERUM OR PLASM A glu 91 mg/dL 70-105 Not Available [address], [address], 11/05/2022 11:37:36 11/05/20 22 11/05/2022 BMP + IONIZ ED CALCI UM, SERUM OR PLASM A BUN 13 mg/dL 8-26 Not Available [address], [address], 11/05/2022 11:37:36 11/05/20 22 11/05/2022 BMP + IONIZ ED CALCI UM, SERUM OR PLASM A crea 0.4 mg/dL 0.6-1. 3 Not Available [address], [address], 11/05/2022 11:37:36 11/05/20 22 11/05/2022 BMP + IONIZ ED CALCI UM, SERUM OR PLASM A Na 136 mmol/ L 138-14 6 Not Available [address], [address], 11/05/2022 11:37:36 11/05/20 22 11/05/2022 BMP + IONIZ ED CALCI UM, SERUM OR PLASM A K 3.3 mmol/ L 3.5-4. 9 Not Available [address], [address], 11/05/2022 11:37:36 11/05/20 22 11/05/2022 BMP + IONIZ ED CALCI UM, SERUM OR PLASM A cL 99 mmol/ L 98-109 Not Available [address], [address], 11/05/2022 11:37:36 11/05/20 22 11/05/2022 BMP + IONIZ ED CALCI UM, SERUM OR PLASM A TCO2 26 mmol/ L 24- Not Available [address], [address], 11/05/2022 11:37:36 11/05/20 22 11/05/2022 BMP + IONIZ ED CALCI UM, SERUM OR PLASM A angap 16 mmol/ L 10-20 Not Available [address], [address], 11/05/2022 11:37:36 11/05/20 22 11/05/2022 BMP + IONIZ ED CALCI UM, SERUM OR PLASM A ica 1.16 mmol/ L 1.12-1 .32 Not Available [address], [address], 11/05/2022 11:37:36 11/05/20 22 11/05/2022 BMP + IONIZ ED CALCI UM, SERUM OR PLASM A HCT 39 %pcv 38-51 Not Available [address], [address], 11/05/2022 11:37:36 11/05/20 22 11/05/2022 BMP + IONIZ ED CALCI UM, SERUM OR PLASM A Hb 13.3 g/dL 12-17 Not Available [facility] [address] [place], [address], 11/05/2022 11:37:36 11/05/20 22 11/05/2022 CG4+ ISTAT lac 1.79 mmol/ L 0.9-1. 7 Not Available [facility] [address] [place], [address], 11/05/2022 11:36:18 11/07/20 22 11/07/2022 XR, chest , 1 view XRAY CHEST 1 VIEW Compar belkys: 11/18/19 FINDIN GS: The lungs are withou t infilt rate, atelec tasis or effusi on. There is no pulmon stephanie vascul ar conges tion or edema. The heart size is normal . The medias tinal contou rs are within normal limits . Athero sclero tic calcif icatio ns are visibl e in the aorta. There are degene rative change s of the spine. The remain ing osseou s struct ures and soft tissue s are unrema rkable . There is a pacema ker in positi on. Appear ance is not signif icantl y change d from compar belkys exam. CONCLU KARINA: No acute cardio pulmon stephanie diseas e. ELECTR ONICAL LY SIGNED BY ENDY HDEZ M.D. 2021 11:37: 03 AM EST. XRAY CHEST 1 VIEW Compar belkys: 11/18/19 Result s: The lungs are withou t infilt rate, atelec tasis or effusi on. There is no pulmon stephanie vascul ar conges tion or edema. The heart size is normal . The medias tinal contou rs are within normal limits . Athero sclero tic calcif icatio ns are visibl e in the aorta. There are degene rative change s of the spine. The remain ing osseou s struct ures and soft tissue s are unrema rkable . There is a pacema ker in positi on. Appear ance is not signif icantl y change d from compar belkys exam. Conclu karian: No acute cardio pulmon stephanie diseas e. Electr onical ly signed by ENDY HDEZ M.D. 2021 11:37: 03 AM EST. [facility] [address] [facility] [address], [place], [address], 11/07/2022 12:07:53 Result Notes Documentation Provider Name and Address Organization Details Recorded Time Xr, Chest, 1 View : XRAY CHEST 1 VIEW Comparison: 11/18/2021 FINDINGS: The lungs are without infiltrate, atelectasis or effusion. There is no pulmonary vascular congestion or edema. The heart size is normal. The mediastinal contours are within normal limits. Atherosclerotic calcifications are visible in the aorta. There are degenerative changes of the spine. The remaining osseous structures and soft tissues are unremarkable. There is a pacemaker in position. Appearance is not significantly changed from comparison exam. CONCLUSION: No acute cardiopulmonary disease. ELECTRONICALLY SIGNED BY ENDY HDEZ M.D. 11/07/2022 11:37:03 AM EST. XRAY CHEST 1 VIEW Comparison: 11/18/2021 Results: The lungs are without infiltrate, atelectasis or effusion. There is no pulmonary vascular congestion or edema. The heart size is normal. The mediastinal contours are within normal limits. Atherosclerotic calcifications are visible in the aorta. There are degenerative changes of the spine. The remaining osseous structures and soft tissues are unremarkable. There is a pacemaker in position. Appearance is not significantly changed from comparison exam. Conclusion: No acute cardiopulmonary disease. Electronically signed by ENDY HDEZ M.D. 11/07/2022 11:37:03 AM EST. Priscilla Hills NP [address] [place], [address], [place] [facility] 11/07/2022 12:07:53 Procedures Surgical History Date Name Laterality Status Provider Name and Address Organization Details Recorded Time 11/05/20 22 Medication Review completed Priscilla Hills NP [address] [place], [address], [place] [facility] 11/05/2022 11:43:35 11/05/20 Urine Study Consent NO completed Priscilla Hills NP [address] [place], [address], [place] [facility] 11/05/2022 12:16:20 11/05/20 22 Venipuncture - completed Priscilla Hills NP [address], [place], [address], [place] [facility] 11/05/2022 12:15:44 11/05/20 22 IV Start Procedure - completed Priscilla Hills NP [address], [place], [address], [place] [facility] 11/05/2022 11:44:27 11/05/20 22 Straight Cath - completed Priscilla Hills NP [address], [place], [address], [place] [facility] 11/05/2022 11:44:53 total replacement of hip completed Priscilla Hills NP [address], [place], [address], [place] [facility] 11/05/2022 11:32:39 Imaging Results None recorded. Procedure Notes None recorded. Medical Equipment None Reported. Allergies Allergen ID Allergen Name Allergen Category Reaction Reaction Severity Criticality Documentation Date Start Date Code Code System Note Provider Name and Address Organization Details Recorded Time 258622 lactose food,medi cation Not available Not available Not available 03/05/2022 6211 RxNorm SHEY FARRIS, SUGAR [address] [place], [address], [place] [facility] 14:14:42 Medications Name Sig Start Date Stop Date Status Note LastModified by Organization Details LastModified Time doxycycline hyclate 100 mg capsule TAKE 1 CAPSULE BY MOUTH TWICE DAILY FOR 14 DAYS 10/29 completed Not Available Not Available Not Available nicotine 14 mg/24 hr daily transdermal patch APPLY PATCH TOPICALLY EVERY DAY 10/29 completed Not Available Not Available Not Available polyethylen e glycol 3350 17 gram oral powder packet DISSOLVE THE CONTENTS OF 1 PACKET IN LIQUID AND TAKE BY MOUTH EVERY DAY 10/29 completed Not Available Not Available Not Available Nystop 100,000 unit/gram topical powder APPLY TO MOIST AREAS DAILY NEEDED 10/29 completed Not Available Not Available Not Available prednisone 20 mg tablet TAKE 1 TABLET BY MOUTH EVERY DAY FOR 6 DAYS DIRECTED active Not Available Not Available No t Available ciprofloxac in 500 mg tablet TAKE 1 TABLET BY MOUTH TWICE DAILY 10/29 completed Not Available Not Available Not Available sulfamethox azole 800 mg-trimetho prim 160 mg tablet TAKE 1 TABLET BY MOUTH EVERY 12 HOURS FOR 7 DAYS active Not Available Not Available No t Available vancomycin 1,000 mg intravenous injection 03/05 completed Not Available Not Available Not Available levothyroxi ne 75 mcg tablet TAKE 1 TABLET BY MOUTH DAILY 10/29 completed Not Available Not Available Not Available levothyroxi ne 100 mcg tablet TAKE 1 TABLET BY MOUTH DAILY active Not Available Not Available No t Available levothyroxi ne 88 mcg tablet TAKE 1 TABLET BY MOUTH DAILY 10/29 completed Not Available Not Available Not Available baclofen 10 mg tablet TAKE 1 TABLET BY MOUTH DAILY active Not Available Not Available No t Available erythromyci n 5 mg/gram (0.5 %) eye ointment APPLY 1 CM RIBBON INTO THE LOWER CONJUNCTI JAYSON SACS IN AFFECTED EYE(S) THREE TIMES DAILY FOR 7 DAYS 10/29 completed Not Available Not Available Not Available triamcinolo ne acetonide 0.1 % topical ointment APPLY THIN LAYER TOPICALLY TO THE AFFECTED AREA TWICE DAILY active Not Available Not Available No t Available clotrimazol e-betametha sone 1 %-0.05 % topical cream active Not Available Not Available Not Available nicotine 21 mg/24 hr daily transdermal patch APPLY 1 PATCH TOPICALLY EVERY DAY 10/29 completed Not Available Not Available Not Available docusate sodium 100 mg capsule TAKE 1 CAPSULE BY MOUTH TWICE DAILY active Not Available Not Available No t Available folic acid 1 mg tablet TAKE 1 TABLET BY MOUTH DAILY active Not Available Not Available No t Available gabapentin 100 mg capsule TAKE 2 CAPSULES BY MOUTH EVERY MORNING AND 3 CAPSULES EVERY NIGHT AT BEDTIME active Not Available Not Available No t Available sodium chloride 0.9 % intravenous solution Inject 1000 irrigatio ns by intraveno us route. 2021 active Not Available Not Available Not Avai lable levofloxaci n 500 mg tablet TAKE 1 TABLET BY MOUTH DAILY 10/29 completed Not Available Not Available Not Available ferrous sulfate 325 mg (65 mg iron) tablet,nahomy yed release TAKE 1 TABLET BY MOUTH EVERY DAY active Not Available Not Available No t Available acetaminoph en 500 mg capsule Take 2 capsules every 6 hours by oral route. active Not Available Not Available No t Available doxycycline hyclate 100 mg tablet 10/29 completed Not Available Not Available Not Available oxycodone 5 mg tablet TAKE 1 TABLET BY MOUTH EVERY 4 HOURS FOR 7 DAYS NEEDED FOR MODERATE PAIN 10/29 completed Not Available Not Available Not Available enoxaparin 40 mg/0.4 mL subcutaneou s syringe 10/29 completed Not Available Not Available Not Available escitalopra m 10 mg tablet TAKE 1 TABLET BY MOUTH DAILY active Not Available Not Available No t Available Vitamin D3 25 mcg (1,000 unit) capsule TAKE 1 CAPSULE BY MOUTH EVERY DAY active Not Available Not Available No t Available escitalopra m 5 mg tablet 10/29 completed Not Available Not Available Not Available sodium chloride 0.9 % intravenous piggyback active Not Available Not Available No t Available cholecalcif kellie (vitamin D3) 25 mcg (1,000 unit) tablet TAKE 1 TABLET BY MOUTH DAILY active Not Available Not Available No t Available BD PosiFlush Normal Saline 0.9 % injection syringe active Not Available Not Available Not Available vancomycin 750 mg intravenous solution 03/05 completed Not Available Not Available Not Available Heparin Lock Flush (Porcine) (PF) 10 unit/mL intravenous syringe 10/29 completed Not Available Not Available Not Available potassium chloride ER 20 mEq tablet,exte nded release 10/29 completed Not Available Not Available Not Available Eucerin Eczema Relief 1 % topical cream Apply 45 g as needed by topical route as needed for 10 days. 2021 active Not Available Not Available Not Avai alyssa Piedra COVID-19 Ag Self Test kit TEST DIRECTED TODAY 10/29 completed Not Available Not Available Not Available Vitals Date Recorded Body temperature Respiratory rate Oxygen saturation Oxygen saturation in Arterial blood by Pulse oximetry Heart rate Systolic And Diastolic Provider Name and Address Organization Details Last Updated DateTime 2 98.9 [degF] 20 /min 96 % 96 % 84 /min 96/50 mm[Hg] Not Available [facility] 2 14:16:57 Date Recorded Respiratory rate Oxygen saturation Oxygen saturation in Arterial blood by Pulse oximetry Body temperature Heart rate Systolic And Diastolic Provider Name and Address Organization Details Last Updated DateTime 2 18 /min 95 % 95 % 98.9 [degF] 100 /min 98/50 mm[Hg] Not Available [facility] 2 10:33:25 Date Recorded Heart rate Respiratory rate Body temperature Oxygen saturation Oxygen saturation in Arterial blood by Pulse oximetry Heart rate Systolic And Diastolic Provider Name and Address Organization Details Last Updated DateTime 2 114 /min 18 /min 100.9 [degF] 92 % 92 % 95 /min 94/76 mm[Hg] Not Available [facility] 2 11:04:42 Social History Question Answer Notes LastModified by [employer] Details LastModified Time Tobacco Smoking Status Never Smoker Priscilla Hills NP [address] [place], [address], [place] [facility] 11/05/2022 11:32:12 Has Tobacco Cessation Counseling Been Provided? No Information not available 11/05/2022 Sex: Unknown Functional Status Question Answer Note LastModified by [employer] Details LastModified Time Do you use any illicit or recreational drugs? No Information not available 11/05/2022 Do you or have you ever used any other forms of tobacco or nicotine? No Information not available 11/05/2022 What is your level of alcohol consumption? None Information not available 11/05/2022 Mental Status None recorded. Family History Nothing Reported. Medical History Condition Response Diabetes N CHF N Parkinson's Disease N Dementia N Stroke N Depression Y Asthma N Hypothyroidism Y High Cholesterol N Rheumatoid Arthritis N Pulmonary Embolism N Hypertension N A-fib N Osteoporosis N Kidney Disease N Gynecological HistoryNo gynecological history recorded. Obstetrics History GPAL:G 0 P 0 0 0 0 Past Encounters Encounter ID Performer Location Encounter Start Date Encounter Closed Date Diagnosis/Indication Diagnosis SNOMED-CT Code Diagnosis ICD10 Code Diagnosis IMO Codes Diagnosis Note [id number] SHEY FARRIS NP [facility] [address] [place] [address] 03/05/2022 14:06:31 03/08/2022 12:06:01 Acute conjunctivitis 59899297 H10.32 [id number] Lydia Khan NP [facility] [address] [place] [address] 10/29/2022 10:30:20 10/31/2022 08:17:18 Atopic dermatitis 78567157 L20.9 [id number] Priscilla Hills NP [facility] [address] [place] [address] 11/05/2022 11:00:32 11/08/2022 12:37:36 Weakness present 115026245 M62.81 Lethargy 835202649 R53.8 3 Increased frequency of urination 917204123 R35.0 Acute urin stephanie tract infection 803488248 N39.0 Atopic dermatitis 035228 01 L20.9 Health Concerns Section Related Observation LastModified by Organization Detai ls LastModified Time None Recorded Concern Status LastModified by Organization Details LastModified Time None Recorded Advance Directives Directive None Recorded Payers Insurance Date Sequence Insurance Name Policy Number Policy Johnson Covered Member ID Johnson Member ID Guarantor Name 03/04/2022 1 *SELF PAY* Gonzalez [facility] [id number] [facility] 11/30/2022 1 [facility] - DOS PRIOR TO 2023 - DUAL ELIGIBLE (MEDICARE REPLACEMENT/ADV ANTAGE - HMO) [facility] [id number] [facility] Notes Date Note Type Note Provider Name and Address Organization Details Recorded Time 03/05/2022 text/html 57 year-old female with history of CVA with left contractures, depression, hypothyroidism, whose calls to home to evaluate patient for left eye discharge.Pt having left eye discharge that started yesterday morning. There has been crusty discahrge. The eye has been itchy but no pain or discomfort. She denies any trauma but she rubs her eye with long nails. Pt denies any vision changes.Pt otherwise feeling well. NO facial pain, NO ear pain. SHEY FARRIS NP [address], [place], [address], [place] [facility] 03/05/2022 19:42:48 10/29/2022 text/html General HPI Template - DHReported by Patient 57 YO F patient established with however new to provider. and CLOTHING MAN present for visit. Patient is experiencing a rash to BUE and BLE x 1 month which is itchy in nature with small clear filled blisters that pop on their own. CLOTHING MAN is applying Vaseline lotion, Hydorcortisone, and using Dove soap. She denies any new detergents. PMHx of CVA with left contractures, depression, hypothyroidism. Lydia Khan NP [address], [place], [address], [place] [facility] 10/29/2022 12:08:16 11/05/2022 text/html Patient is a 57 year old female with a PMH including hypothyroidism, depression, chronic wounds (follows wound care biweekly for debridements) and hip replacement s/p girdlestone procedure who is known to and new to provider who was scheduled today for follow up for wounds however upon arrival abnormal vitals with tachycardia/febrile and her saying she feels like shit . No specific complaints aside from this. She denies SOB/CP. She is eating and drinking without issue, follows a pureed diet. Ate this AM without issue. The family says she appears to be at her baseline as she takes Gabapentin 500mg which can cause sedation. Denies cough or shortness of breath. Per her , her urine has had a strong odor to it with frequency. In regards to the rash to LE, improvement to the blisters however maculopapular rash remains, initially resolved with Prednisone but once that completed it returned. Denies any itch or further complaints to rash. Priscilla Hills NP [address], [place], [address], [place] [facility] 11/05/2022 12:44:59 OBGyn Episode No OBEpisode recorded.
[2025-09-04 17:00] LABS: Alanine Aminotransferase 9 U/L (0-31); Albumin Level 4.0 g/dL (3.5-5.0); Alkaline Phosphatase 117 U/L (39-117); Anion Gap 15 (12-20); Aspartate Amino Transferase 19 U/L (5-31); Blood Urea Nitrogen 13 mg/dL (9-16); Calcium 9.6 mg/dL (8.4-10.2); Carbon Dioxide 22 mmol/L (22-29); Chloride 108 mmol/L (96-108); Estimated Glomerular Filt Rate > 60; Iron 30 mcg/dL (30-160); Percent Iron Saturation 14 % (15-50); Potassium 3.9 mmol/L (3.3-5.1); Sodium 141 mmol/L (135-145); Total Iron Binding Capacity 211 mcg/dL (228-428); Total Protein 7.5 g/dL (6.5-8.0); Unsaturated Iron Binding 181 ug/dL
[2025-09-04 17:19] LABS: Folate > 20.0 ng/mL (> or = 4.0); Vitamin B12 380 pg/mL (200-900)
[2025-09-04 19:01] LABS: Free T4 (Free Thyroxine) 1.45 ng/dL (0.71-1.85)
== END 2025-09-04 11:23 | disposition home or self-care (01) ==
LOC: HO.HMGCLDS 11:22
PROVIDERS: PCP Internal Medicine; Visit Provider Internal Medicine
DX: E61.1 Iron deficiency (principal); F03.90 Unspecified dementia, unspecified severity, without behavioral disturbance, psychotic disturbance, mood disturbance, and anxiety; E03.9 Hypothyroidism, unspecified; E55.9 Vitamin D deficiency, unspecified; R73.9 Hyperglycemia, unspecified; Z99.3 Dependence on wheelchair
CPT/HCPCS: 36415; 80053; 82306; 82607; 82746; 83036; 83540; 84439; 84443; 85025; 96127; 99212